=== PATIENT | male | born 1955 | race Caucasian/White ===

== ENCOUNTER 2020-06-22 12:27 | Observation (INO) | payer OTHER ==
[2020-06-22 14:11] LABS: Basophils # (A) 0.1 k/uL (0-0.2); Basophils % (A) 2 %; Eosinophils # (A) 0.2 k/uL (0-0.7); Eosinophils % (A) 3 %; HCT 49.1 % (39.0-53.0); HGB 15.9 gm/dL (13.0-17.5); Lymphocytes # (A) 1.9 k/uL (1.0-4.8); Lymphocytes % (A) 25 %; MCH 32.4 pg (25.0-35.0); MCHC 32.5 g/dL (31.0-37.0); MCV 99.7 fL (80.0-100.0); Mean Platelet Volume 6.9; Monocytes # (A) 0.3 k/uL (0-1.0); Monocytes % (A) 4 %; Neutrophils % (A) 65 %; Platelet Count 251 k/uL (150-450); RBC 4.92 m/uL (4.30-5.90); RDW 12.5 % (11.5-15.5); WBC 7.7 k/uL (3.8-10.6)
--- NOTE | 2020-06-22 14:29 | P.CRDCN ---
History of Present Illness History of present illness: HISTORY OF PRESENTING ILLNESS This is a pleasant 64year-old male past medical history significant for dyslipidemia, daily alcohol intake, chronic back pain and family history of coronary artery disease. He denies prior history of CAD himself and does not follow in the office with a drill press tender. He presented to the hospital today for an outpatient echocardiogram ordered by his PCP for shortness of breath. The patient arrived quite short of breath. His breathing did improve after he sat for a few minutes. He states this has been going on for the last 1 month and getting progressively worse. He had orthopnea earlier this week and had to sleep propped on 3 pillows. He recalls having an episode of chest heaviness and pressure while he was driving a few weeks ago. That was the only time he had any left precordial chest pain. He states both of his brother have already undergone bypass grafting. Current cardiac medications include aspirin 81 mg daily and atorvastatin 40 mg daily. He states he drinks 3 large 24-ounce cans of beer per day everyday and takes caffeine pills as well. 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 Preliminary echocardiogram reviewed and reveals a severely impaired LV systolic function with EF around 25%. REVIEW OF SYSTEMS At the time of my exam: CONSTITUTIONAL: Denies fever or chills. CARDIOVASCULAR: Complains of shortness of breath and orthopnea. Denies chest pain, PND or palpitations. RESPIRATORY: Denies cough. GASTROINTESTINAL: Denies abdominal pain, diarrhea, constipation, nausea or vomiting. MUSCULOSKELETAL: Denies myalgias. NEUROLOGIC: Denies numbness, tingling or weakness. ENDOCRINE: Denies fatigue, weight change, polydipsia or polyurina. GENITOURINARY: Denies burning, hematuria or urgency with micturation. HEMATOLOGIC: Denies history of anemia or bleeding. PHYSICAL EXAMINATION Blood pressure 164/94 heart rate 94 afebrile and maintaining oxygen saturation on room air. CONSTITUTIONAL: No apparent distress. HEENT: Head is normocephalic. Pupils are equal, round. Sclerae anicteric. Mucous membranes of the mouth are moist. No JVD. No carotid bruit. CHEST EXAMINATION: Faint rales bibasilar. No wheezes or rhonchi. No chest wall tenderness is noted on palpation or with deep breathing. HEART EXAMINATION: Regular rate and rhythm. S1, S2 heard. No murmurs, gallops or rub. ABDOMEN: Soft, nontender. Positive bowel sounds. EXTREMITIES: 2+ peripheral pulses, no lower extremity edema and no calf tenderness. NEUROLOGIC EXAMINATION: Patient is awake, alert and oriented x3. ASSESSMENT Acute systolic heart failure Cardiomyopathy, unknown if ischemic or non-ischecmic at this point. Dyslipidemia Daily alcohol intake PLAN Recommend admission into the hospital for diuresis. Discussed with Dr. Foley and Rebecca. Obtain chest xray, CMP, magnesium, NTproBNP and troponin. Initiate on lasix 20 mg IV TID. Follow renal function and electrolytes in the AM. Document accurate intake and output along with daily weights. If his blood pressure tolerates diuresis we will initiate beta ritesh and LISA or ARB tomorrow. Resume aspirin and atorvastatin as previously ordered. Further recommendations to follow based on clinical course. Thank you kindly for this consultation. Dr. Tamayo will be in to evaluate the patient this evening. Nurse Practitioner note has been reviewed, I agree with a documented findings and plan of care. Patient was seen and examined. Past Medical History - Past Family History Brother(s) Family Medical History: Coronary Artery Disease (CAD) Additional Family Medical History / Comment(s): 2 boys with a CABG Mother Family Medical History: Myocardial Infarction ([place]) Additional Family Medical History / Comment(s): mom passed from a [place] Medications and Allergies Home Medications Medication Instructions Recorded Confirmed Type Aspirin 81 mg PO BID 06/22/20 06/22/20 History Atorvastatin [Lipitor] 1 mg PO DAILY 06/22/20 06/22/20 History Cyclobenzaprine [Flexeril] 10 mg PO TID 06/22/20 06/22/20 History HYDROcodone/APAP 10-325MG [[place] 1 tab PO Q8HR PRN 06/22/20 06/22/20 History 10-325] Loratadine 10 mg PO DAILY 06/22/20 06/22/20 History Montelukast [Singulair] 10 mg PO HS 06/22/20 06/22/20 History busPIRone HCL 15 mg PO BID 06/22/20 06/22/20 History Allergies Allergy/AdvReac Type Severity Reaction Status Date / Time No Known Allergies Allergy Verified 06/22/20 14:27 Results 06/22/20 13:51
[2020-06-22 14:31] LABS: ALT 32 U/L (4-49); AST 28 U/L (17-59); African American GFR (CKD) >90 (>60 ml/min/1.73 sqM); Albumin 4.2 g/dL (3.5-5.0); Alkaline Phosphatase 81 U/L (38-126); Anion Gap 7 mmol/L; Blood Urea Nitrogen 17 mg/dL (9-20); Calcium 9.5 mg/dL (8.4-10.2); Carbon Dioxide 27 mmol/L (22-30); Chloride 107 mmol/L (98-107); Cholesterol 177 mg/dL (<200); Glucose 126 mg/dL (74-99); HDL Cholesterol 53 mg/dL (40-60); LDL Cholesterol,Calculated 100 mg/dL (0-99); Non-African American GFR(CKD) >90 (>60 ml/min/1.73 sqM); Potassium 4.2 mmol/L (3.5-5.1); Sodium 141 mmol/L (137-145); Total Bilirubin 0.7 mg/dL (0.2-1.3); Total Protein 6.9 g/dL (6.3-8.2); Triglycerides 122 mg/dL (<150)
--- NOTE | 2020-06-22 15:45 | XR ---
EXAMINATION TYPE: XR chest 2V DATE OF EXAM: 06/22/2020 COMPARISON: None HISTORY: 64 year-old male shortness of breath TECHNIQUE: PA and lateral views FINDINGS: Heart borderline in size. Tortuosity or ectasia of the thoracic aorta. Band of atelectasis at the car diac apex and right midlung. Diffuse interstitial prominence. No consolidation or pleural effusion. IMPRESSION: Borderline heart size and mild interstitial change. Correlate to exclude fluid overload state/mild pu lmonary vascular congestion.
[2020-06-22] MEDS: FUROSEMIDE 10 MG/ML 2 ML VIAL IV SCH (16:55)
[2020-06-22] MEDS: LOSARTAN 50 MG TAB PO SCH (16:56)
--- NOTE | 2020-06-22 17:07 | ECHOF ---
Referral Reason:I10 hypertension Z82.49 R06.02Shortness of breath MEASUREMENTS -------- HEIGHT: 172.7 cm WEIGHT: 91.6 kg BP: IVSd: 1.1 cm (0.6 - 1.1) LVIDd: 5.7 cm (3.9 - 5.3) LVPWd: 1.0 cm (0.6 - 1.1) IVSs: 1.2 cm LVIDs: 5.3 cm LVPWs: 1.1 cm LAESV Index (A-L): 44.29 ml/m Ao Diam: 2.9 cm (2.0 - 3.7) AV Cusp: 2.0 cm (1.5 - 2.6) LA Diam: 3.8 cm (2.7 - 3.8) MV EXCURSION: 20.757 mm (> 18.000) MV EF SLOPE: 95 mm/s (70 - 150) EPSS: 1.6 cm MV E Omega: 0.87 m/s MV DecT: 158 ms MV A Omega: 1.19 m/s MV E/A Ratio: 0.73 RAP: 5.00 mmHg RVSP: 7.06 mmHg FINDINGS -------- This was a technically difficult study with suboptimal views. The left ventricle is mildly dilated. Left ventricular wall thickness is normal. There is severe global hypokinesis of LV . Overall left ventricular systolic function is severely impaired with, an EF between 20 - 25 %. Increased LAP. Grade 3 Diastolic Dysfunction. The right ventricle is normal in size. LA is severely dilated >40 ml/m2 The right atrial size is normal. 5.0mg of Lumason was utilized for enhancement of images The aortic valve is trileaflet and appears structurally normal. The mitral valve is normal. Mild mitral regurgitation is present. The tricuspid valve appears structurally normal. Mild tricuspid regurgitation present. Right vent ricular systolic pressure is normal at < 35 mmHg. There is no pulmonic regurgitation present. The aortic root size is normal. There is no pericardial effusion. CONCLUSIONS -------- 1. The left ventricle is mildly dilated. 2. Left ventricular wall thickness is normal. 3. There is severe global hypokinesis of LV . 4. Overall left ventricular systolic function is severely impaired with, an EF between 20 - 25 %. 5. Increased LAP. Grade 3 Diastolic Dysfunction. 6. LA is severely dilated >40 ml/m2 7. Mild mitral regurgitation is present. 8. Mild tricuspid regurgitation present. 9. There is no pericardial effusion. ELECTRIC ORGAN INSPECTOR AND REPAIRER: Irina Melara RDCS
[2020-06-22] MEDS ORDERED: SODIUM CHLORIDE 0.9% 1,000 ML IV SCH (18:15)
--- NOTE | 2020-06-22 18:35 | P.HPIM ---
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 He presented to the to the hospital today for outpatient echocardiogram that was ordered by Dr. Foley for worsening dyspnea. He initially noticed shortness of breath about one month ago and progressively worsened. He also makes mention that he was becoming more easily fatigued over the past week and has been experiencing orthopnea to the point of needing 3 pillows to be propped up for him to be able to sleep. He does mention that approximately 3 weeks ago he had an episode of chest heaviness and pressure while he was driving. He denies experiencing any other chest pain or tightness. He has a known familial history of coronary artery disease as both brothers have undergone bypass grafting. He has a past medical history positive for dyslipidemia, chronic back pain, and being a former smoker. He admits to 3 - 24 ounce cans of beer daily, and takes caffeine pills. The echocardiogram revealed mildly dilated left ventricle, severe global hypokinesis of the left ventricle, ejection fraction 20-25%, and there is no pericardial effusion. Initial lab work reveals white blood cell count 7.7, hemoglobin of 15.9, hematocrit 49.1, platelet count 251. Chemistry reveals a sodium of 141, potassium 4.2, chloride 107, albumin is 17, creatinine of 0.91, GFR greater than 90 and a magnesium of 2.0. His AST is 28, ELT is 32, and his alk phosphatase is 81. Initial troponin was 0.0-4 with a BNP of 210, triglycerides 122, cholesterol 177, LDL is 100, and HDL is 53. Initial set of vitals and pulse rate of 94 sinus rhythm, respiratory rate 18, blood pressure 164/94, 98% on room air. 2 hours later he is afebrile with a temperature of 96.3 orally, pulse rate 97, respiratory rate 19, blood pressure is down 141/92, and is oxygen saturation is 95% on room air. His initial weight for this admission is 106.1 kg with a BMI of 35.6. Review of Systems Constitutional: [Denies fever, chills, nausea or vomiting.] HEENT: [Denies visual changes, hearing changes, pharyngeal erythema or exudate.] Endocrine: [No thyroid disorders. No diabetes mellitus.] Cardiac: [Denies chest pain. Denies murmur.] Pulmonary: [Denies cough or hemoptysis. Complains of shortness of breath, but improving Gasroenterology: [Denies abdominal pain. Denies melena or hematocezia.] Genitourinary: [Denies dysuria or hematuria.] Neurological: [Denies lateralizing deficits. No seizures. Denies focal deficits or focal motor deficits.] Musculoskeletal: [Denies joint complaints.] Allergy/ Immunology: [Denies allergies or immunologic disorder.] Dermatology: [Denies rash.] Past Medical History Past Medical History: Hyperlipidemia Additional Past Medical History / Comment(s): DJD History of Any Multi-Drug Resistant Organisms: None Reported Past Surgical History: Cholecystectomy Additional Past Surgical History / Comment(s): knee surgery at the age of 21 Past Anesthesia/Blood Transfusion Reactions: No Reported Reaction Past Psychological History: Anxiety, PTSD Smoking Status: Former smoker Past Alcohol Use History: Daily Additional Past Alcohol Use History / Comment(s): 6 beers a day Past Drug Use History: Marijuana Additional Drug Use History / Comment(s): current - Past Family History Brother(s) Family Medical History: Coronary Artery Disease (CAD) Additional Family Medical History / Comment(s): 2 boys with a CABG Mother Family Medical History: Myocardial Infarction ([place]) Additional Family Medical History / Comment(s): mom passed from a [place] Medications and Allergies Home Medications Medication Instructions Recorded Confirmed Type Aspirin EC [Ecotrin Low Dose] 81 mg PO BID 06/22/20 06/22/20 History Atorvastatin [Lipitor] 40 mg PO HS 06/22/20 06/22/20 History Cyclobenzaprine [Flexeril] 10 mg PO TID PRN 06/22/20 06/22/20 History Fluticasone Nasal [place] [Flonase 1 spray EA NOSTRIL HS 06/22/20 06/22/20 History Nasal [place]] Ginkgo Biloba 500 mg PO DAILY 06/22/20 06/22/20 History HYDROcodone/APAP 10-325MG [[place] 1 tab PO Q8HR PRN 06/22/20 06/22/20 History 10-325] Loratadine 10 mg PO DAILY 06/22/20 06/22/20 History Montelukast [Singulair] 10 mg PO HS 06/22/20 06/22/20 History busPIRone HCL 15 mg PO BID 06/22/20 06/22/20 History Allergies Allergy/AdvReac Type Severity Reaction Status Date / Time No Known Allergies Allergy Verified 06/22/20 15:23 Physical Exam Vitals: Vital Signs Temp Pulse Resp BP Pulse Ox 06/22/20 16:38 96.3 F L 97 19 141/92 95 06/22/20 14:23 94 18 164/94 98 Intake and Output 06/22/20 06/22/20 06/22/20 06:59 14:59 22:59 Intake Total 150 Balance 150 Intake: Oral 150 Other: Weight 106.1 kg GENERAL: Well-appearing, well-nourished and in no acute distress. HEAD: Atraumatic, normocephalic. EYES: Pupils equal round and reactive to light, extraocular movements intact, sclera anicteric, conjunctiva are normal. ENT:nares patent, oropharynx clear without exudates. Moist mucous membranes. NECK: Normal range of motion, supple without lymphadenopathy or JVD, no thyromegaly LUNGS: Breath sounds fine rales in bilateral bases otherwise clear to auscultation. HEART: Regular rate and rhythm without murmurs, rubs or gallops.S1S2 Normal ABDOMEN: Soft, nontender, normoactive bowel sounds. No guarding, no rebound. No masses appreciated. EXTREMITIES: Normal range of motion, no pitting or edema. No clubbing or cyanosis. +2 peripheral pulses NEUROLOGICAL: Cranial nerves II through XII grossly intact. Normal speech, normal gait. PSYCH: Normal mood, normal affect. SKIN: Warm, Dry, normal turgor, no rashes or lesions noted. Results CBC & Chem 7: 06/22/20 13:51 06/22/20 13:51 Labs: Abnormal Lab Results - Last 24 Hours (Table) 06/22/20 Range/Units 13:51 Glucose 126 H (74-99) mg/dL LDL Cholesterol, Calc 100 H (0-99) mg/dL Thrombosis Risk Factor Assmnt - Choose All That Apply Each Factor Represents 1 point: Heart failure (<1month), Obesity (BMI >25) Each Risk Factor Represents 2 Points: Age 61-74 years Thrombosis Risk Factor Assessment Total Risk Factor Score: 4 Thrombosis Risk Factor Assessment Level: Moderate Risk Assessment and Plan (1) Acute systolic heart failure Current Visit: Yes Status: Acute Code(s): I50.21 - ACUTE SYSTOLIC (CON GESTIVE) HEART FAILURE SNOMED Code(s): 375720329 (2) Cardiomyopathy Current Visit: Yes Status: Acute Code(s): I42.9 - CARDIOMYOPATHY, UNSPECIFIED SNOMED Code(s): 85703744 (3) Shortness of breath at rest Current Visit: Yes Status: Acute Code(s): R06.02 - SHORTNESS OF BREATH SNOMED Code(s): 005701704 (4) Daily consumption of alcohol Current Visit: Yes Status: Acute Code(s): Z78.9 - OTHER SPECIFIED HEALTH STATUS SNOMED Code(s): 242301770 (5) Dyslipidemia Current Visit: Yes Status: Acute Code(s): E78.5 - HYPERLIPIDEMIA, UNSPECIFIED SNOMED Code(s): 876092454 (6) Former smoker Current Visit: Yes Status: Acute Code(s): Z87.891 - PERSONAL HISTORY OF NICOTINE DEPENDENCE SNOMED Code(s): 8877231 Plan: 1. Gentle diuresis with IV Lasix 20 mg TID 2. We'll continue with both ARB and beta ritesh per cardiology recommendation s. 3. Aspirin and statin as previously ordered. 4. Continue to follow daily lab work and treat accordingly. 5. We'll maintain nothing by mouth status with possibility of cardiac cath tomorrow. 6. Will initiate CIWA protocol for his daily consumption of alcohol. 7. We'll continue to monitor vital signs and more importantly daily weights and treat accordingly. 8. We'll continue to follow closely.
[2020-06-22] MEDS ORDERED: THIAMINE 100 MG/ML 2 ML VIAL IM STA (18:37)
[2020-06-22] MEDS ORDERED: LORazepam 2 MG/ML INJ IV PRN ×3 (18:37)
[2020-06-22] MEDS: carvediloL 3.125 MG TAB PO SCH (18:46)
[2020-06-22] MEDS: MONTELUKAST 10 MG TAB PO SCH (21:33)
[2020-06-22] MEDS: ATORVASTATIN 40 MG TAB PO SCH (21:34)
[2020-06-22] MEDS: busPIRone HCl 5 MG TAB PO SCH (21:34)
[2020-06-22] MEDS: HYDROcodone/APAP 10-325MG 1 EACH TAB PO PRN (21:35)
[2020-06-23] MEDS: HEPARIN SODIUM,PORCINE 5,000 UNIT/ML 1 ML VIAL SQ SCH ×3 (00:15→16:51)
[2020-06-23] MEDS ORDERED: ASPIRIN 325 MG TAB PO STA (07:44)
[2020-06-23] MEDS ORDERED: NITROGLYCERIN SL TABS 0.4 MG TAB SUBLINGUAL PRN (07:44)
[2020-06-23] MEDS ORDERED: SODIUM CHLORIDE 0.9% 1,000 ML in EMPTY BAG 1 BAG IV ONE (07:44)
[2020-06-23 07:57] LABS: African American GFR (CKD) >90 (>60 ml/min/1.73 sqM); Anion Gap 6 mmol/L; Blood Urea Nitrogen 17 mg/dL (9-20); Calcium 9.4 mg/dL (8.4-10.2); Carbon Dioxide 29 mmol/L (22-30); Chloride 106 mmol/L (98-107); Glucose 113 mg/dL (74-99); Non-African American GFR(CKD) 80 (>60 ml/min/1.73 sqM); Potassium 4.6 mmol/L (3.5-5.1); Sodium 141 mmol/L (137-145)
[2020-06-23] MEDS: busPIRone HCl 5 MG TAB PO SCH ×2 (08:52→20:01)
[2020-06-23] MEDS: carvediloL 3.125 MG TAB PO SCH ×2 (08:52→16:55)
[2020-06-23 08:53] LABS: Glucose,Whole Blood 124 mg/dL (75-99)
[2020-06-23] MEDS: HYDROcodone/APAP 10-325MG 1 EACH TAB PO PRN ×2 (08:53→16:53)
[2020-06-23] MEDS: LOSARTAN 50 MG TAB PO SCH (08:54)
[2020-06-23] MEDS: THIAMINE 100 MG TAB PO SCH ×2 (08:54→17:11)
[2020-06-23] MEDS: FUROSEMIDE 10 MG/ML 2 ML VIAL IV SCH ×3 (08:54→16:57)
[2020-06-23] MEDS ORDERED: ASPIRIN 81 MG PO SCH (09:00)
[2020-06-23] MEDS ORDERED: VERAPAMIL SYRINGE (5 MG/10 ML) INTRAARTER ONE (11:36)
[2020-06-23] MEDS ORDERED: HEPARIN SODIUM 1,000 UN/ML (10ML VL) ONE (13:07)
[2020-06-23] MEDS ORDERED: VERAPAMIL 2.5 MG/ML 2 ML AMP ONE (13:07)
[2020-06-23] MEDS ORDERED: LIDOCAINE 1% INJ 10MG/ML (20 ML MDV) ONE (13:07)
[2020-06-23] MEDS ORDERED: IV FLUID CONTINUATION 1,000 ML IV ONE (13:20)
[2020-06-23] MEDS ORDERED: MIDAZOLAM 2 MG/2 ML VIAL IV ONE (13:28)
[2020-06-23] MEDS ORDERED: LIDOCAINE 1% INJ 10MG/ML (20 ML MDV) SQ ONE (13:32)
[2020-06-23] MEDS ORDERED: NITROGLYCERIN 1000MCG/10ML SYRINGE INTRACORON ONE (14:06)
[2020-06-23] MEDS ORDERED: IOPAMIDOL-370 100ML BTL INJ ONE ×2 (14:06→14:49)
[2020-06-23] MEDS ORDERED: HYDROmorphone 1 MG/ML 1 ML SYRINGE ONE (14:31)
[2020-06-23] MEDS ORDERED: HYDROmorphone 1 MG/ML 1 ML SYRINGE IVP ONE (14:32)
[2020-06-23] MEDS ORDERED: EPINEPHrine 10 ML SYRINGE (0.1 MG/ML) IV ONE (14:46)
[2020-06-23] MEDS ORDERED: NOREPINEPHRINE 4 MG in SODIUM CHLORIDE 0.9% 250 ML IV ONE (14:49)
--- NOTE | 2020-06-23 15:54 | P.PN ---
Subjective Progress Note Date: 06/23/20 This is 64-year-old gentleman admitted with acute systolic CHF, cardiomyopathy, alcohol abuse and multiple other medical issues. Evaluated by cardiology. Diuresing well on Lasix IV push with 24-hour I&O reflecting a negative fluid balance. Creatinine 1.01. Scheduled for cardiac catheterization today. M aintained on CIWA protocol. Denies chest pain, palpitations or increasing shortness of breath. Maintaining O2 sats in the 90s on room air. Objective - Vital Signs Vital signs: Vital Signs Temp 97.8 F 06/23/20 08:00 Pulse 86 06/23/20 12:00 Resp 19 06/23/20 12:00 BP 135/88 06/23/20 12:00 Pulse Ox 95 06/23/20 12:00 Intake & Output 06/22/20 06/23/20 06/23/20 18:59 06:59 18:59 Intake Total 270 200 Output Total 1100 300 Balance 270 -1100 -100 Weight 106.1 kg 104.3 kg Intake: IV 200 Oral 270 0 Output: Urine 1100 300 Other: Voiding Method Urinal Urinal - Exam PHYSICAL EXAM: VITAL SIGNS: As above GENERAL: Sitting up in bed,NAD HEENT: Conjunctivae normal. eyes normal. Oral mucosa dry NECK: No JVD. No thyroid enlargement. No LNs CARDIOVASCULAR: S1, S2 regular.. No murmur RESPIRATION: Breath sounds diminished in the bases. No rhonchi or crackles. No bronchial breathing. ABDOMEN: Soft, nontender . No guarding. no masses palpable.Bowel sounds heard. LEGS: No edema. no swelling PSYCHIATRY: Alert and oriented X3, mood and affect normal. NERVOUS SYSTEM: Cranial N 2-12 grossly normal. No focal deficits. Strength and sensation grossly intact.. Skin: Warm and dry, no rash - Labs CBC & Chem 7: 06/22/20 13:51 06/23/20 06:23 Labs: Abnormal Lab Results - Last 24 Hours (Table) 06/23/20 06/23/20 Range/Units 06:23 08:52 Glucose 113 H (74-99) mg/dL POC Glucose (mg/dL) 124 H (75-99) mg/dL Assessment and Plan Assessment: Acute CHF exacerbation, systolic dysfunction Cardiomyopathy, type unclear Alcohol abuse, daily Hyperlipidemia Former nicotine dependence Plan: Continue on current medication regime ,monitoring and symptomatic treatment. Scheduled for cardiac catheterization today. Maintained diuretics, close monitoring of renal function with repeat labs ordered for a.m.CIWA protocol. The impression and plan of care has been dictated as directed. : I performed a history and examination of this patient, discussed the same with the dictator. I agree with the dictator's note ,documented as a scribe. Any additional findings or plans will be noted.
[2020-06-23] MEDS ORDERED: LOSARTAN 50 MG TAB PO PRN (16:10)
[2020-06-23] MEDS: PANTOPRAZOLE 40 MG/10 ML VIAL IVP SCH (16:56)
[2020-06-23] MEDS: SODIUM CHLORIDE 0.9% 1,000 ML IV SCH ×2 (18:21→20:02)
[2020-06-23] MEDS: MONTELUKAST 10 MG TAB PO SCH (20:02)
[2020-06-23] MEDS: ATORVASTATIN 40 MG TAB PO SCH (20:02)
--- NOTE | 2020-06-23 20:52 | CC ---
CARDIAC CATHETERIZATION REPORT DATE OF SERVICE: 06/23/2020 PROCEDURE: 1. Coronary angiography. 2. Fractional flow reserve assessment of mid LAD and mid RCA. PERFORMED BY: Dr. Le Tamayo. Moderate conscious sedation time was 84 minutes. Patient was administered Versed. Oxygen saturation, hemodynamics and EKG were monitored closely. CLINICAL INFORMATION: Mr. Jaycob Doyle is a 64-year-old obese gentleman with history of smoking, marijuana use and also alcohol intake. He came into the hospital for echocardiogram yesterday, was quite short of breath, was found to be in heart failure clinically with ejection fraction of less than 25%. He was hospitalized, treated with diuretics. He felt better this morning. He was advised coronary angiography to rule out obstructive CAD and therefore brought in for the procedure after due discussion regarding risks, benefits and options. PROCEDURE NOTE: Under local anesthesia and strict aseptic precautions, a 6-[place] introducer was placed in the right radial artery. Using JR4 and JL3.5 catheters, I performed coronary angiography. I noted that this was somewhat of a difficult procedure from the right radial approach because of tortuosity. I did not get LV pressures. Following the coronary angiography, I noted that there was a 50% lesion in the mid LAD after a septal branch and before a diagonal branch, and also there was a mid RCA lesion at the origin of acute marginal branch. Both of these were in the 50% range, moderate. I advised FFR, which I performed in the same setting. Procedure was somewhat prolonged because of technical difficulties in trying to get a good guide support for the FFR. CARDIAC CATHETERIZATION FINDINGS: CORONARY ANGIOGRAPHY FINDINGS: Right coronary artery is a large vessel, dominant, very tortuous in the mid portion, gives off 2 acute marginal branches, and there is eccentric 50% lesion, after which the caliber improves and distally the vessel bifurcates into a large PDA and PLV, both of which supply a sizable amount of myocardium. RCA is therefore dominant, has a 50% mid lesion, eccentric. Left main coronary artery is a very short patent vessel that bifurcates into LAD and circumflex. No significant disease. Left anterior descending coronary artery is a fairly good-caliber vessel that gives off a septal branch proximally, and then there is an area of narrowing of up to 50%, after which a good-sized diagonal branch comes off and the LAD caliber improves and it runs all the way to the apex, supplying a sizable amount of myocardium. The mid LAD after a relatively small septal branch, therefore, has a 50% lesion. Diagonal and rest of LAD distal to the diagonal is free of significant disease. Left posterior circumflex coronary artery is a nondominant vessel and gives off a high obtuse marginal which almost looks like a ramus, small in caliber and distribution; no significant disease. Circumflex then gives a left atrial circumflex branch and continues distally as an obtuse marginal. No significant disease in the circumflex system. FINAL IMPRESSION: This patient has a right-dominant system, 50% mid RCA and a 50% mid LAD lesion. No significant disease in the circumflex. RECOMMENDATIONS: I recommended IFR/FFR and proceeded to perform this in the same setting of both LAD and RCA. FFR ASSESSMENT PROCEDURE DETAILS: For the left anterior descending coronary artery, I initially tried a JL4 catheter, but I had poor guide support. I was able to advance a Verrata wire, but it went into the diagonal branch. I therefore took the wire out and switched over to an XB LAD 3.5 guide catheter. With this I had a slightly better approach. I advanced a run-through wire all the way distally with the hope of exchanging it over a [place] catheter, but I was then able to advance the Verrata wire over it distally. This took a considerable amount of time. Patient received about 6500 units of heparin totally and his ACT was 323. I obtained IFR after normalizing adequately in the ascending aorta. The IFR was 0.91 and 0.93. I then turned my attention to the right coronary artery. When the wires were taken out, I used a standard right [place] guide catheter to cannulate the right coronary artery and used the same long Verrata wire which was already calibrated and advanced it into the mid/distal RCA. IFR was performed and this was 0.97. Both the RCA mid lesion as well as LAD mid lesion were therefore hemodynamically not significant by IFR measurement. This was explained to the patient. Following this, he complained of discomfort in the right arm and also in the right radial site and became vasovagal. The catheter was then taken out. I gave him some IV fluids and also gave him 1 mL of epinephrine to get his pressure back up. Once the blood pressure came back up, he stabilized. We observed him for nearly 30 minutes and his blood pressure remained normal at more than 120/70, and his EKG was unremarkable. Symptoms were resolved. I then took the sheath out and applied a TR band as per protocol. Good hemostasis was achieved and the saturation in the fingers of the right hand was about 96%. The patient received sedation and Dilaudid, and the conscious sedation time was 84 minutes. He was observed very closely. His oxygen saturation, hemodynamics and EKG were monitored closely. The patient therefore has a moderate lesion in the mid LAD and mid right coronary artery which is a dominant vessel, but the IFR was normal, suggesting that these are not significant lesions. This was explained to the patient in detail. He was sent to the room in a stable condition. Transient use of Levophed was there in the laborer concrete paving for vasovagal episode. Following the procedure, I spoke to the patient's , Frida Doyle, explained to her the findings and the details of the procedure and the hypotensive episode and that we will watch him closely for the next 24 hours and possibly discharge him once we optimize his heart failure management. I discussed my thoughts in detail with the patient. Thank you very much for the consult. MMHIMAL / IJN: [id number] /
[2020-06-24] MEDS: FUROSEMIDE 10 MG/ML 2 ML VIAL IV SCH ×2 (00:24→08:42)
[2020-06-24] MEDS: HEPARIN SODIUM,PORCINE 5,000 UNIT/ML 1 ML VIAL SQ SCH ×2 (00:24→08:42)
[2020-06-24] MEDS: HYDROcodone/APAP 10-325MG 1 EACH TAB PO PRN (03:43)
[2020-06-24] MEDS: THIAMINE 100 MG TAB PO SCH (06:36)
[2020-06-24] MEDS ORDERED: carvediloL 6.25 MG TAB PO SCH (07:30)
[2020-06-24 07:53] LABS: Basophils # (A) 0.1 k/uL (0-0.2); Basophils % (A) 1 %; Eosinophils # (A) 0.2 k/uL (0-0.7); Eosinophils % (A) 2 %; Lymphocytes # (A) 2.7 k/uL (1.0-4.8); Lymphocytes % (A) 25 %; MCH 32.7 pg (25.0-35.0); MCHC 32.7 g/dL (31.0-37.0); MCV 100.1 fL (80.0-100.0); Mean Platelet Volume 6.8; Monocytes # (A) 0.5 k/uL (0-1.0); Monocytes % (A) 5 %; Neutrophils # (A) 7.1 k/uL (1.3-7.7); Neutrophils % (A) 66 %; Platelet Count 275 k/uL (150-450); RDW 12.6 % (11.5-15.5); WBC 10.8 k/uL (3.8-10.6)
[2020-06-24 08:35] LABS: African American GFR (CKD) >90 (>60 ml/min/1.73 sqM); Anion Gap 8 mmol/L; Blood Urea Nitrogen 16 mg/dL (9-20); Calcium 8.9 mg/dL (8.4-10.2); Carbon Dioxide 22 mmol/L (22-30); Chloride 107 mmol/L (98-107); Glucose 128 mg/dL (74-99); Non-African American GFR(CKD) >90 (>60 ml/min/1.73 sqM); Potassium 3.9 mmol/L (3.5-5.1); Sodium 137 mmol/L (137-145)
[2020-06-24 08:40] VITALS: RESP 18
[2020-06-24] MEDS: busPIRone HCl 5 MG TAB PO SCH (08:41)
[2020-06-24] MEDS: PANTOPRAZOLE 40 MG/10 ML VIAL IVP SCH (08:42)
[2020-06-24] MEDS: LOSARTAN 50 MG TAB PO SCH (08:42)
[2020-06-24] MEDS ORDERED: ASPIRIN 81 MG PO SCH (09:00)
[2020-06-24 11:55] VITALS: BP 135/76; PULSE 94; TEMP 97.7
--- NOTE | 2020-06-24 13:01 | P.PN ---
Subjective Progress Note Date: 06/24/20 Principal diagnosis: Shortness of breath, outpatient echocardiogram demonstrated poor cardiac output Patient status post cardiac catheterization, no significant lesions noted curr ently, on medical management with carvedilol and losartan and diuretic patient is slowly improving. Am recommending a significant reduction and/or elimination of alcohol consumption Objective - Vital Signs Vital signs: Vital Signs Temp 97.7 F 06/24/20 11:53 Pulse 94 06/24/20 11:53 Resp 18 06/24/20 11:53 BP 135/76 06/24/20 11:53 Pulse Ox 98 06/24/20 11:53 Intake & Output 06/23/20 06/24/20 06/24/20 18:59 06:59 18:59 Intake Total 884 400 240 Output Total 300 2100 Balance 584 -1700 240 Weight 104.1 kg Intake: IV 200 Oral 684 400 240 Output: Urine 300 2100 Other: Voiding Method Urinal Urinal Urinal # Voids 4 1 - Exam General: [Patient awake, alert and oriented times 3. Patient in no acute distress.] HEENT: [PERRL. EOMI. No pharyngeal erythema or exudate.] Neck: [No adenopathy.] Cardiac: [Heart regular in rate and rhythm. No S3. No S4. No clicks, rubs. No murmur.] Lungs: [Clear to auscultation bilaterally.] Abdomen: [No mass. No organomegaly. Bowel sounds presnt and normoactive in all 4 quadrants.] Extremes: [No edema no cyanosis no claudication normal pulses] : Normal male genitalia Musculoskeletal: [No joint erythema, edema or tenderness.] Skin: [No rash.] Neurologic: [No lateralizing deficits. CN II - XII grossly intact.] Lymphatic: [No adenopathy.] - Labs CBC & Chem 7: 06/24/20 07:23 06/24/20 07:23 Labs: Abnormal Lab Results - Last 24 Hours (Table) 06/24/20 06/24/20 Range/Units 07:23 07:23 WBC 10.8 H (3.8-10.6) k/uL MCV 100.1 H (80.0-100.0) fL Glucose 128 H (74-99) mg/dL Assessment and Plan (1) Acute systolic heart failure Current Visit: Yes Status: Acute Code(s): I50.21 - ACUTE SYSTOLIC (CONGESTIVE) HEART FAILURE SNOMED Code(s): 344932499 (2) Cardiomyopathy Current Visit: Yes Status: Acute Code(s): I42.9 - CARDIOMYOPATHY, UNSPECIFIED SNOMED Code(s): 89055143 (3) Daily consumption of alcohol Current Visit: Yes Status: Acute Code(s): Z78.9 - OTHER SPECIFIED HEALTH STATUS SNOMED Code(s): 631652437 (4) Dyslipidemia Current Visit: Yes Status: Acute Code(s): E78.5 - HYPERLIPIDEMIA, UNSPECIFIED SNOMED Code(s): 705690464 (5) Former smoker Current Visit: Yes Status: Acute Code(s): Z87.891 - PERSONAL HISTORY OF NICOTINE DEPENDENCE SNOMED Code(s): 3279717 (6) Shortness of breath at rest Current Visit: Yes Status: Acute Code(s): R06.02 - SHORTNESS OF BREATH SNOMED Code(s): 642545365 Plan: Recent cardiac catheterization, no significant lesions noted Significant cardiomyopathy consider alcohol related Meds include carvedilol losartan diuretic Anticipate discharge home once pain is stable Time with Patient: Greater than 30
--- NOTE | 2020-06-24 13:30 | P.PN ---
Subjective Progress Note Date: 06/24/20 History of present illness: This is a pleasant 64year-old male past medical history significant for dyslipidemia, daily alcohol intake, chronic back pain and family history of coronary artery disease. He denies prior history of CAD himself and does not follow in the office with a edge finisher. He presented to the hospital today for an outpatient echocardiogram ordered by his PCP for shortness of breath. The patient arrived quite short of breath. His breathing did improve after he sat for a few minutes. He states this has been going on for the last 1 month and getting progressively worse. He had orthopnea earlier this week and had to sleep propped on 3 pillows. He recalls having an episode of chest heaviness and pressure while he was driving a few weeks ago. That was the only time he had any left precordial chest pain. He states both of his brother have already undergone bypass grafting. Current cardiac medications include aspirin 81 mg daily and atorvastatin 40 mg daily. He states he drinks 3 large 24-ounce cans of beer per day everyday and takes caffeine pills as well. 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 Preliminary echocardiogram reviewed and reveals a severely impaired LV systolic function with EF around 25%. 06/24: Patient underwent heart catheterization with Dr. INDY Tamayo on June 23 which revealed right dominant system, 50% mid RCA and 50% mid LAD lesion. No significant disease in the circumflex. INR was normal. He did require transient use of Levophed and the Er Nurse for vasovagal episode. He has been hemodynamically stable. WBC 10.8, hemoglobin 16. Electrolytes and renal function normal with creatinine of 0.87. Lasix will be transitioned to oral at 40 mg twice daily and Coreg will be increased to 12.5 mg twice daily. Need for alcohol cessation discussed with patient. Plan to monitor patient overnight and schedule discharge for tomorrow. Physical examination: Gen: This is a 64-year-old male. He is resting in bed and appears to be comfortable and in no acute distress. VS: Afebrile, heart rate 94, pressure 135/76, pulse ox 90% on room air. [age]-year-old male. HEENT: Head is atraumatic, normocephalic. Pupils equal, round. Sclerae is anicteric. NECK: Supple. No JVD. No lymphadenopathy. No thyromegaly. LUNGS: Clear to auscultation. No wheezes or rhonchi. No intercostal retractions. HEART: Regular rate and rhythm. No murmur. ABDOMEN: Soft. Bowel sounds are present. No masses. No tenderness. EXTREMITIES: No pedal edema. No calf tenderness. NEUROLOGICAL: Patient is awake, alert and oriented x3. Cranial nerves 2 through 12 are grossly intact. Assessment: Acute systolic heart failure Cardiomyopathy, unknown if ischemic or non-ischecmic at this point. Dyslipidemia Daily alcohol intake Plan: Transitioned IV Lasix to oral 40 mg twice daily. Recheck electrolytes and renal function in the morning. Document accurate intake and output along with daily weights. Continue losartan 50 mg daily and increase Coreg to 12.5 mg twice daily. Resume aspirin and atorvastatin as previously ordered. Most likely patient will be cleared for discharge home tomorrow. Further recommendations to follow based on clinical course. Thank you kindly for this consultation. Nurse practitioner note has been reviewed, I agree with documented findings and plan of care. Patient was seen and examined. Objective - Vital Signs Vital signs: Vital Signs Temp 98.2 F 06/24/20 08:39 Pulse 96 06/24/20 08:39 Resp 18 06/24/20 08:39 BP 147/99 06/24/20 08:39 Pulse Ox 97 06/24/20 08:39 Intake & Output 06/23/20 06/24/20 06/24/20 18:59 06:59 18:59 Intake Total 884 400 240 Output Total 300 2100 Balance 584 -1700 240 Weight 104.1 kg Intake: IV 200 Oral 684 400 240 Output: Urine 300 2100 Other: Voiding Method Urinal Urinal Urinal # Voids 4 1 - Labs CBC & Chem 7: 06/24/20 07:23 06/24/20 07:23 Labs: Abnormal Lab Results - Last 24 Hours (Table) 06/24/20 06/24/20 Range/Units 07:23 07:23 WBC 10.8 H (3.8-10.6) k/uL MCV 100.1 H (80.0-100.0) fL Glucose 128 H (74-99) mg/dL
[2020-06-24] MEDS ORDERED: FUROSEMIDE 40 MG TAB PO SCH (16:00)
--- NOTE | 2020-06-24 16:00 | ECHOF ---
Referral Reason:Cardiomyopathy, Evaluate LV FX and Wall motion, MEASUREMENTS -------- HEIGHT: 172.7 cm WEIGHT: 103.9 kg BP: IVSd: 1.0 cm (0.6 - 1.1) LVIDd: 5.2 cm (3.9 - 5.3) LVPWd: 1.0 cm (0.6 - 1.1) IVSs: 1.1 cm LVIDs: 4.7 cm LVPWs: 1.7 cm FINDINGS -------- Limited Study Left ventricular wall thickness is normal. There is severe global hypokinesis of LV . Overall lef t ventricular systolic function is severely impaired with, an EF between 20 - 25 %. There is no pericardial effusion. CONCLUSIONS -------- 1. Left ventricular wall thickness is normal. 2. There is severe global hypokinesis of LV . 3. Overall left ventricular systolic function is severely impaired with, an EF between 20 - 25 %. 4. There is no pericardial effusion. HIDE SPREADER: Irina Melara RDCS
[2020-06-24] MEDS ORDERED: carvediloL 12.5 MG TAB PO SCH (17:30)
--- NOTE | 2020-07-04 13:18 | P.DS ---
Providers Date of admission: 06/22/20 13:31 Expected date of discharge: 07/04/20 Attending physician: Elio Foley Consults: 06/22/20 13:47 Consult Physician Routine Consulting Provider: José Luis Tamayo Consult Reason/Comments: new onset heart failure Do you want consulting provider notified?: Already Contacted Primary care physician: Elio Foley - Discharge Diagnosis(es) (1) Acute systolic heart failure Status: Acute (2) Cardiomyopathy Status: Acute (3) Daily consumption of alcohol Status: Acute (4) Dyslipidemia Status: Acute (5) Former smoker Status: Acute (6) Shortness of breath at rest Status: Acute Assessment: Patient signed out AMA apparently because his meal didn't come in time Patient Condition at Discharge: Serious Plan - Discharge Summary New Discharge Prescriptions: No Action HYDROcodone/APAP 10-325MG [[place] 10-325] 1 tab PO Q8HR PRN PRN Reason: Pain Loratadine 10 mg PO DAILY Cyclobenzaprine [Flexeril] 10 mg PO TID PRN PRN Reason: Muscle Spasm busPIRone HCL 15 mg PO BID Montelukast [Singulair] 10 mg PO HS Atorvastatin [Lipitor] 40 mg PO HS Fluticasone Nasal [place] [Flonase Nasal [place]] 1 spray EA NOSTRIL HS Aspirin EC [Ecotrin Low Dose] 81 mg PO BID Ginkgo Biloba 500 mg PO DAILY Discharge Medication List Aspirin EC [Ecotrin Low Dose] 81 mg PO BID 06/22/20 [History] Atorvastatin [Lipitor] 40 mg PO HS 06/22/20 [History] Cyclobenzaprine [Flexeril] 10 mg PO TID PRN 06/22/20 [History] Fluticasone Nasal [place] [Flonase Nasal [place]] 1 spray EA NOSTRIL HS 06/22/20 [History] Ginkgo Biloba 500 mg PO DAILY 06/22/20 [History] HYDROcodone/APAP 10-325MG [[place] 10-325] 1 tab PO Q8HR PRN 06/22/20 [History] Loratadine 10 mg PO DAILY 06/22/20 [History] Montelukast [Singulair] 10 mg PO HS 06/22/20 [History] busPIRone HCL 15 mg PO BID 06/22/20 [History] Discharge Disposition: Left Against Medical Advice
== END 2020-06-24 13:20 | disposition left against medical advice (07) ==
LOC: RADECHMAIN 12:27 → INTOOBSV 13:31 → 3SCARD 13:31 → UNDODISIN 06-24 13:20
PROVIDERS: ADMIT Family Medicine; ATTEND Family Medicine
DX: I25.10 Atherosclerotic heart disease of native coronary artery without angina pectoris (principal); I77.1 Stricture of artery; I95.9 Hypotension, unspecified; Z53.29 Procedure and treatment not carried out because of patient's decision for other reasons; R06.02 Shortness of breath; R06.00 Dyspnea, unspecified; R53.83 Other fatigue; R06.01 Orthopnea; R00.0 Tachycardia, unspecified; I50.21 Acute systolic (congestive) heart failure; I42.9 Cardiomyopathy, unspecified; E78.5 Hyperlipidemia, unspecified; F10.10 Alcohol abuse, uncomplicated; F41.9 Anxiety disorder, unspecified; F43.10 Post-traumatic stress disorder, unspecified; E66.9 Obesity, unspecified; G89.29 Other chronic pain; M54.9 Dorsalgia, unspecified; M19.90 Unspecified osteoarthritis, unspecified site; Y90.9 Presence of alcohol in blood, level not specified; Z87.891 Personal history of nicotine dependence; Z90.49 Acquired absence of other specified parts of digestive tract; Z98.890 Other specified postprocedural states; Z79.82 Long term (current) use of aspirin; Z79.899 Other long term (current) drug therapy; Z79.891 Long term (current) use of opiate analgesic; Z68.35 Body mass index [BMI] 35.0-35.9, adult; Z82.49 Family history of ischemic heart disease and other diseases of the circulatory system
CPT/HCPCS: 96372; 96374; 93005; 93308; 93571; 93572; 93454; 85379; 83880 ×2; 80061; 80053; 80048 ×2; 83735; 84484 ×2; 85025 ×2; 71046; G0378 ×3; C8929; C1769 ×3; C1887 ×3; C1894; J2250; J1644 ×3; J1940 ×3; J3411; J2001; J0171; J1170; C9113 ×2; Q9950; Q9967; 93306

== ENCOUNTER 2020-11-05 10:49 | Observation (INO) | payer OTHER ==
[2020-11-05] MEDS ORDERED: ASPIRIN 81 MG PO STA (11:37)
[2020-11-05 11:54] LABS: Basophils # (A) 0.1 k/uL (0-0.2); Basophils % (A) 1 %; Eosinophils # (A) 0.5 k/uL (0-0.7); Eosinophils % (A) 6 %; HCT 50.3 % (39.0-53.0); HGB 17.8 gm/dL (13.0-17.5); Lymphocytes # (A) 2.2 k/uL (1.0-4.8); Lymphocytes % (A) 25 %; MCH 33.7 pg (25.0-35.0); MCHC 35.4 g/dL (31.0-37.0); MCV 95.1 fL (80.0-100.0); Monocytes # (A) 0.4 k/uL (0-1.0); Monocytes % (A) 5 %; Neutrophils # (A) 5.6 k/uL (1.3-7.7); Neutrophils % (A) 62 %; Platelet Count 206 k/uL (150-450); RBC 5.28 m/uL (4.30-5.90); RDW 12.6 % (11.5-15.5)
--- NOTE | 2020-11-05 12:02 | ED ---
Chest Pain HPI - General Chief Complaint: Chest Pain Stated Complaint: SOB Time Seen by Provider: 11/05/20 11:20 Source: patient, RN notes reviewed Mode of arrival: ambulatory Limitations: no limitations - History of Present Illness Initial Comments: 65-year-old male presents emergency Department chief complaint chest discomfort, shortness of breath. Patient states that he had some heart issues in the past. Patient states she was admitted here last year for similar problems. Patient states that this is much worse. States his pressure in his chest and shortness of breath. No fevers or chills. Denies any nausea vomiting. He states the pain is more exertional. No history DVT or PE. Patient states he does take multiple medications. Patient has a history of hypertension hyperlipidemia and diabetes. - Related Data Home Medications Medication Instructions Recorded Confirmed Aspirin EC [Ecotrin Low Dose] 81 mg PO BID 06/22/20 11/05/20 Atorvastatin [Lipitor] 40 mg PO AC-SUPPER 06/22/20 11/05/20 Cyclobenzaprine [Flexeril] 10 mg PO BID 06/22/20 11/05/20 HYDROcodone/APAP 10-325MG [[place] 1 tab PO Q8HR PRN 06/22/20 11/05/20 10-325] Loratadine 10 mg PO DAILY 06/22/20 11/05/20 Carvedilol [Coreg] 12.5 mg PO AC-BID 11/05/20 11/05/20 Cyclobenzaprine [Flexeril] 10 mg PO DAILY@1400 PRN 11/05/20 11/05/20 Furosemide [Lasix] 40 mg PO DAILY 11/05/20 11/05/20 Losartan [Cozaar] 25 mg PO DAILY 11/05/20 11/05/20 Potassium Chloride [Klor-Con 20] 20 meq PO DAILY 11/05/20 11/05/20 Pseudoephedrine 12Hr [Sudafed 12Hr] 120 mg PO Q12H PRN 11/05/20 11/05/20 busPIRone HCL [Buspar] 30 mg PO BID 11/05/20 11/05/20 Allergies Allergy/AdvReac Type Severity Reaction Status Date / Time No Known Allergies Allergy Verified 11/05/20 12:57 Review of Systems ROS Statement: Those systems with pertinent positive or pertinent negative responses have been documented in the HPI. ROS Other: All systems not noted in ROS Statement are negative. EKG Findings - EKG Comments: EKG Findings:: EKG performed at 11:23 normal sinus rhythm rate of 93. 150 QRS 86 QT/QTC 346/4:30 - EKG Results: EKG: interpreted by JINA Past Medical History Past Medical History: Chest Pain / Angina, Hyperlipidemia Additional Past Medical History / Comment(s): DJD History of Any Multi-Drug Resistant Organisms: None Reported Past Surgical History: Cholecystectomy Additional Past Surgical History / Comment(s): knee surgery at the age of 21 Past Anesthesia/Blood Transfusion Reactions: No Reported Reaction Past Psychological History: Anxiety, PTSD Smoking Status: Former smoker Past Alcohol Use History: Daily Past Drug Use History: Marijuana - Past Family History Brother(s) Family Medical History: Coronary Artery Disease (CAD) Additional Family Medical History / Comment(s): 2 boys with a CABG Mother Family Medical History: Myocardial Infarction ([place]) Additional Family Medical History / Comment(s): mom passed from a [place] General Exam Limitations: no limitations General appearance: alert, in no apparent distress Head exam: Present: atraumatic, normocephalic, normal inspection Eye exam: Present: normal appearance, PERRL, EOMI. Absent: scleral icterus, conjunctival injection, periorbital swelling ENT exam: Present: normal exam, normal oropharynx, mucous membranes moist, TM's normal bilaterally Neck exam: Present: normal inspection, full ROM. Absent: tenderness, meningismus, lymphadenopathy Respiratory exam: Present: normal lung sounds bilaterally. Absent: respiratory distress, wheezes, rales, rhonchi, stridor Cardiovascular Exam: Present: regular rate, normal rhythm, normal heart sounds. Absent: systolic murmur, diastolic murmur, rubs, gallop, clicks GI/Abdominal exam: Present: soft, normal bowel sounds. Absent: distended, tenderness, guarding, rebound, rigid Extremities exam: Absent: pedal edema, calf tenderness Skin exam: Present: warm, dry, intact, normal color. Absent: rash Course Vital Signs 11/05/20 11/05/20 11/05/20 11:10 11:50 12:00 Temperature 97.9 F Pulse Rate 104 H 97 Respiratory 18 18 18 Rate Blood Pressure 129/87 130/93 O2 Sat by Pulse 99 Oximetry 11/05/20 13:00 Temperature Pulse Rate 99 Respiratory 18 Rate Blood Pressure 144/90 O2 Sat by Pulse Oximetry Chest Pain MDM - MDM Chest x-ray labs EKG reviewed are unremarkable this time. I did discuss case at Dr. Foley in which the patient be admitted to cardiac absent with cardiology evaluation repeat troponins. Disposition Clinical Impression: Exertional dyspnea, Chest pain Disposition: ADMITTED IP TO THIS HOSP Condition: Fair Referrals: Elio Foley MD [Primary Care Provider] - 1-2 days
[2020-11-05 12:12] LABS: ALT 31 U/L (4-49); AST 37 U/L (17-59); African American GFR (CKD) >90 (>60 ml/min/1.73 sqM); Albumin 4.9 g/dL (3.5-5.0); Alkaline Phosphatase 98 U/L (38-126); Anion Gap 11 mmol/L; Blood Urea Nitrogen 12 mg/dL (9-20); Calcium 10.4 mg/dL (8.4-10.2); Carbon Dioxide 25 mmol/L (22-30); Chloride 103 mmol/L (98-107); Glucose 130 mg/dL (74-99); Lipase 180 U/L (23-300); Magnesium 2.2 mg/dL (1.6-2.3); Non-African American GFR(CKD) >90 (>60 ml/min/1.73 sqM); Potassium 4.4 mmol/L (3.5-5.1); Sodium 139 mmol/L (137-145); Total Bilirubin 0.6 mg/dL (0.2-1.3); Total Protein 8.4 g/dL (6.3-8.2)
[2020-11-05 12:13] LABS: D-Dimer 0.21 mg/L FEU (<0.60); INR 0.9 (<1.2); Prothrombin Time 10.2 sec (9.0-12.0)
--- NOTE | 2020-11-05 12:14 | XR ---
EXAMINATION TYPE: XR chest 2V DATE OF EXAM: 11/05/2020 COMPARISON: 06/22/2020 INDICATION: Chest pain TECHNIQUE: Frontal and lateral views of the chest are obtained. FINDINGS: The heart size is normal. The pulmonary vasculature is normal. The lungs are clear. Spondylosis through the thoracic spine. IMPRESSION: 1. No acute pulmonary process.
[2020-11-05 12:15] LABS: Partial Thromboplastin Time 18.5 sec (22.0-30.0)
[2020-11-05] MEDS ORDERED: HEPARIN SODIUM,PORCINE 5,000 UNIT/ML 1 ML VIAL IV ONE (13:31)
[2020-11-05] MEDS ORDERED: HEPARIN SODIUM,PORCINE 5,000 UNIT/ML 1 ML VIAL IV PRN (13:31)
[2020-11-05] MEDS ORDERED: NITROGLYCERIN SL TABS 0.4 MG TAB SUBLINGUAL PRN (13:31)
[2020-11-05] MEDS ORDERED: HEPARIN SOD,PORK IN 0.45% NACL 25,000 UNIT in 0.45% NACL 1 250ML.BAG IV SCH (13:45)
[2020-11-05] MEDS ORDERED: LORazepam 2 MG/ML INJ IV STA (13:48)
[2020-11-05] MEDS ORDERED: LABETALOL 5 MG/ML VIAL MDV IVP STA (13:49)
[2020-11-05] MEDS ORDERED: HYDROcodone/APAP 10-325MG 1 EACH TAB PO PRN (17:18)
[2020-11-05] MEDS ORDERED: ATORVASTATIN 40 MG TAB PO SCH (17:30)
[2020-11-05] MEDS: carvediloL 12.5 MG TAB PO SCH (17:52)
[2020-11-05] MEDS: busPIRone HCl 10 MG TAB PO SCH (22:39)
[2020-11-05] MEDS: CYCLOBENZAPRINE 10 MG TAB PO SCH (22:39)
[2020-11-05] MEDS: LORATADINE 10 MG TAB PO SCH (22:55)
[2020-11-06 03:02] VITALS: PULSE 89
[2020-11-06 06:27] LABS: Cholesterol 135 mg/dL (<200); HDL Cholesterol 41 mg/dL (40-60); LDL Cholesterol,Calculated 65 mg/dL (0-99); Triglycerides 143 mg/dL (<150)
[2020-11-06 08:38] VITALS: BP 120/80; RESP 16; TEMP 97.8
[2020-11-06] MEDS ORDERED: FUROSEMIDE 40 MG TAB PO SCH (09:00)
[2020-11-06] MEDS ORDERED: LOSARTAN 25 MG TAB PO SCH (09:00)
[2020-11-06] MEDS ORDERED: LORATADINE 10 MG TAB PO SCH (09:00)
[2020-11-06] MEDS ORDERED: POTASSIUM CHLORIDE ER 20 MEQ TAB.ER PO SCH (09:00)
[2020-11-06] MEDS ORDERED: ASPIRIN 325 MG TAB PO SCH (09:00)
[2020-11-06] MEDS: busPIRone HCl 10 MG TAB PO SCH (09:23)
[2020-11-06] MEDS: CYCLOBENZAPRINE 10 MG TAB PO SCH (09:23)
[2020-11-06] MEDS: carvediloL 12.5 MG TAB PO SCH (09:23)
[2020-11-06] MEDS: LORATADINE 10 MG TAB PO SCH (09:45)
--- NOTE | 2020-11-06 09:51 | P.CRDCN ---
History of Present Illness History of present illness: HISTORY OF PRESENTING ILLNESS This is a pleasant 65 year-old male past medical history significant for dyslipidemia, hypertension, history of daily alcohol intake, chronic back pain and family history of coronary artery disease. He follows in the office with Dr. Fisher. We have been consulted for exertional shortness of breath and chest pain. He presented to the hospital for increased shortness of breath. Patient states over the weekend he was visiting his son in [place] and started to have shortness of breath with activity. He states that it's been similar to when he was in the hospital last year. Once he got home shortness of breath worsened. He had difficulty walking from his living room to his bathroom without feeling more short of breath. He also has been having increased seasonal allergies, doesn't making shortness of breath worse he thinks. He also has been having some dull intermittent chest pain. It is nonexertional, right sided, nonradiating. He also endorses a cough and increased phlegm. He denies alcohol use. He does smoke marijuana frequently. He denies any illicit drug use. Family history he states both of his brothers had already undergone bypass grafting. 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 He states he's been compliant with his medication. EKG sinus rhythm with no acute STT wave abnormalities. Troponin negative 3, BNP <11, creatinine 0.82, potassium 4.4, sodium 139, WBC 9, hemoglobin 17.8. Patient's current cardiac medication include potassium chloride 20meq daily, losartain 25mg daily, Lasix 40mg daily, carvedilol 12.5mg BID, atorvastatin 40mg daily, aspirin 81mg daily In June 2020, patient was admitted with evidence of CHF and cardiomyopathy, echocardiogram revealed severe global hypokinesis of the LV. Left ventricular systolic function is severely impaired EF between 2024%. Patient had a cardiac catheterization which was found to have moderate disease in the LAD and RCA he was advised maximum medical therapy. He left AGAINST MEDICAL ADVICE, did not take his medications and he followed up outpatient and was restarted on his medications 06/2020: Cardiac catheterization revealed 50% mid RCA and a 50% mid LAD lesion. No significant disease in the circumflex. REVIEW OF SYSTEMS At the time of my exam: CONSTITUTIONAL: Denies fever or chills. CARDIOVASCULAR: Complains of shortness of breath and orthopnea. + occasional chest pain, Denies PND or palpitations. RESPIRATORY: +cough. GASTROINTESTINAL: Denies abdominal pain, diarrhea, constipation, nausea or vomiting. MUSCULOSKELETAL: Denies myalgias. NEUROLOGIC: Denies numbness, tingling or weakness. ENDOCRINE: Denies fatigue, weight change, polydipsia or polyurina. GENITOURINARY: Denies burning, hematuria or urgency with micturation. HEMATOLOGIC: Denies history of anemia or bleeding. PHYSICAL EXAMINATION Blood pressure 120/80 heart rate 89 afebrile and maintaining oxygen saturation on room air. CONSTITUTIONAL: No apparent distress. HEENT: Head is normocephalic. Pupils are equal, round. Sclerae anicteric. Mucous membranes of the mouth are moist. No JVD. No carotid bruit. CHEST EXAMINATION: Clear to auscultation bilaterally. No wheezes or rhonchi. No chest wall tenderness is noted on palpation or with deep breathing. HEART EXAMINATION: Regular rate and rhythm. S1, S2 heard. No murmurs, gallops or rub. ABDOMEN: Soft, nontender. Positive bowel sounds. EXTREMITIES: 2+ peripheral pulses, no lower extremity edema and no calf tenderness. NEUROLOGIC EXAMINATION: Patient is awake, alert and oriented x3. ASSESSMENT Chest pain, atypical- acute coronary chest syndrome ruled out. Anxiety/stress may be a component due to patient's increased stress load at work History of Acute systolic heart failure History of Cardiomyopathy, unknown if ischemic or non-ischemic at this point. Dyslipidemia History of hypertension PLAN -Stop heparin drip -Will obtain 2-D echocardiogram -Continue potassium chloride 20meq daily, losartan 25mg daily, Lasix 40mg daily, carvedilol 12.5mg BID, atorvastatin 40mg daily, aspirin 81mg daily -If echocardiogram with no acute findings, ok to discharge from cardiology standpoint and patient will follow up in outpatient office. Nurse Practitioner note has been reviewed, I agree with a documented findings and plan of care. Patient was seen and examined. Past Medical History Past Medical History: Chest Pain / Angina, Hyperlipidemia, Hypertension Additional Past Medical History / Comment(s): DJD chronic back pain, History of Any Multi-Drug Resistant Organisms: None Reported Past Surgical History: Cholecystectomy Additional Past Surgical History / Comment(s): knee surgery at the age of 21 Past Anesthesia/Blood Transfusion Reactions: No Reported Reaction Past Psychological History: Anxiety, PTSD Smoking Status: Former smoker Additional Past Alcohol Use History / Comment(s): states has not had a beer since June 2020 Past Drug Use History: Marijuana Additional Drug Use History / Comment(s): current - Past Family History Brother(s) Family Medical History: Coronary Artery Disease (CAD) Additional Family Medical History / Comment(s): 2 boys with a CABG Mother Family Medical History: Myocardial Infarction ([place]) Additional Family Medical History / Comment(s): mom passed from a [place] Medications and Allergies Home Medications Medication Instructions Recorded Confirmed Type Aspirin EC [Ecotrin Low Dose] 81 mg PO BID 06/22/20 11/05/20 History Atorvastatin [Lipitor] 40 mg PO AC-SUPPER 06/22/20 11/05/20 History Cyclobenzaprine [Flexeril] 10 mg PO BID 06/22/20 11/05/20 History HYDROcodone/APAP 10-325MG [[place] 1 tab PO Q8HR PRN 06/22/20 11/05/20 History 10-325] Loratadine 10 mg PO DAILY 06/22/20 11/05/20 History Carvedilol [Coreg] 12.5 mg PO AC-BID 11/05/20 11/05/20 History Cyclobenzaprine [Flexeril] 10 mg PO DAILY@1400 PRN 11/05/20 11/05/20 History Furosemide [Lasix] 40 mg PO DAILY 11/05/20 11/05/20 History Losartan [Cozaar] 25 mg PO DAILY 11/05/20 11/05/20 History Potassium Chloride [Klor-Con 20] 20 meq PO DAILY 11/05/20 11/05/20 History Pseudoephedrine 12Hr [Sudafed 12Hr] 120 mg PO Q12H PRN 11/05/20 11/05/20 History busPIRone HCL [Buspar] 30 mg PO BID 11/05/20 11/05/20 History Allergies Allergy/AdvReac Type Severity Reaction Status Date / Time No Known Allergies Allergy Verified 11/05/20 12:57 Physical Exam Vitals: Vital Signs Temp Pulse Pulse Resp BP BP Pulse Ox 11/05/20 15:00 16 11/05/20 14:50 98.1 F 89 16 144/81 97 11/05/20 14:00 89 18 113/94 98 11/05/20 13:00 99 18 144/90 11/05/20 12:00 97 18 130/93 11/05/20 11:50 18 11/05/20 11:10 97.9 F 104 H 18 129/87 99 Intake and Output 11/05/20 11/05/20 11/05/20 06:59 14:59 22:59 Output Total 400 Balance -400 Output: Urine 400 Other: Voiding Method Urinal Weight 104.326 kg 104.326 kg Results 11/05/20 11:45 11/05/20 11:45 Cardiac Enzymes 11/05/20 11/05/20 11/05/20 Range/Units 11:45 11:45 15:33 AST 37 (17-59) U/L Troponin I <0.012 <0.012 (0.000-0.034) ng/mL Coagulation 11/05/20 Range/Units 11:45 PT 10.2 (9.0-12.0) sec APTT 18.5 L (22.0-30.0) sec CBC 11/05/20 Range/Units 11:45 WBC 9.0 (3.8-10.6) k/uL RBC 5.28 (4.30-5.90) m/uL Hgb 17.8 H (13.0-17.5) gm/dL Hct 50.3 (39.0-53.0) % Plt Count 206 (150-450) k/uL Comprehensive Metabolic Panel 11/05/20 Range/Units 11:45 Sodium 139 (137-145) mmol/L Potassium 4.4 (3.5-5.1) mmol/L Chloride 103 (98-107) mmol/L Carbon Dioxide 25 (22-30) mmol/L BUN 12 (9-20) mg/dL Creatinine 0.82 (0.66-1.25) mg/dL Glucose 130 H (74-99) mg/dL Calcium 10.4 H (8.4-10.2) mg/dL AST 37 (17-59) U/L ALT 31 (4-49) U/L Alkaline Phosphatase 98 (38-126) U/L Total Protein 8.4 H (6.3-8.2) g/dL Albumin 4.9 (3.5-5.0) g/dL Current Medications Generic Name Dose Route Start Last Admin Trade Name Freq PRN Reason Stop Dose Admin Aspirin 325 mg 11/06/20 09:00 Aspirin 325 Mg Tab PO DAILY [facility] Heparin Sodium (Porcine) 0 unit 11/05/20 13:31 Heparin Sodium,Porcine 5,000 Unit/Ml 1 Ml Vial IV Q6HR PRN Low PTT Protocol Heparin Sodium/Sodium Chloride 250 mls @ 10.005 mls/hr 11/05/20 13:45 11/05/20 13:56 25,000 unit/ Sodium Chloride IV 9.59 units/kg/hr .Q24H [place] 10.005 mls/hr Administration Protocol 9.59 UNITS/KG/HR Nitroglycerin 0.4 mg 11/05/20 13:31 Nitroglycerin Sl Tabs 0.4 Mg Tab SUBLINGUAL Q5M PRN Chest Pain Intake and Output 11/05/20 11/05/20 11/05/20 06:59 14:59 22:59 Output Total 400 Balance -400 Output: Urine 400 Other: Voiding Method Urinal Weight 104.326 kg 104.326 kg Patient Weight 11/06/20 06:59 Weight 104.326 kg 11/05/20 11:45 11/05/20 11:45
[2020-11-06 09:59] LABS: Platelet Count 275 X 10*3/uL (140-440)
--- NOTE | 2020-11-06 12:00 | ECHOF ---
Referral Reason:shortness of breath MEASUREMENTS -------- HEIGHT: 177.8 cm WEIGHT: 104.3 kg BP: 120/80 RVIDd: 3.6 cm (< 3.3) IVSd: 1.5 cm (0.6 - 1.1) LVIDd: 3.8 cm (3.9 - 5.3) LVPWd: 1.4 cm (0.6 - 1.1) IVSs: 1.5 cm LVIDs: 3.0 cm LVPWs: 1.9 cm LAESV Index (A-L): 24.07 ml/m Ao Diam: 3.9 cm (2.0 - 3.7) AV Cusp: 2.2 cm (1.5 - 2.6) MV EXCURSION: 18.162 mm (> 18.000) MV EF SLOPE: 62 mm/s (70 - 150) EPSS: 1.3 cm MV E Omega: 0.63 m/s MV DecT: 151 ms MV A Omega: 1.04 m/s MV E/A Ratio: 0.60 RAP: 5.00 mmHg RVSP: 16.37 mmHg FINDINGS -------- Sinus rhythm. This was a technically difficult study with suboptimal apical views. The left ventricular size is normal. There is moderate concentric left ventricular hypertrophy. O verall left ventricular systolic function is mildly impaired with, an EF between 45 - 50 %. Atypica l septal wall motion The right ventricle is mildly enlarged. Normal LA size by volume 22+/-6 ml/m2. The right atrial size is normal. 5.0mg of Lumason was utilized for enhancement of images Interatrial and interventricular septum intact. The aortic valve is trileaflet and appears structurally normal. There is mild aortic valve sclerosi s. There is no evidence of aortic regurgitation. No mitral regurgitation. Mild tricuspid regurgitation present. There is no evidence of pulmonary hypertension. The right v entricular systolic pressure, as measured by Doppler, is 16.37mmHg. There is no pulmonic regurgitation present. The aortic root size is normal. IVC Not well visulized. There is no pericardial effusion. CONCLUSIONS -------- 1. The left ventricular size is normal. 2. There is moderate concentric left ventricular hypertrophy. 3. Overall left ventricular systolic function is mildly impaired with, an EF between 45 - 50 %. 4. The right ventricle is mildly enlarged. 5. There is mild aortic valve sclerosis. 6. Mild tricuspid regurgitation present. TREASURY ANALYST: Hanna Kay RDCS
--- NOTE | 2020-11-06 12:04 | P.HPIM ---
History of Present Illness History and physical and Discharge Summary This is a 65-year-old gentleman admitted to the ER with complaints of right- sided, nonradiating chest pain at rest, accompanied by exertional shortness of breath, productive cough since the weekend while visiting son in [place], in a patient with history of angina, cardiomyopathy, alcohol abuse, hyperlipidemia, hypertension, chronic back pain, DJD, anxiety, former nicotine dependence, frequent marijuana use and seasonal ALLERGIES. 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 Denies nausea, vomiting or diarrhea. Denies abdominal pain. Vital signs stable, maintaining O2 sats in the 90s on room air. Troponins negative 3. EKG reporting normal sinus rhythm, inferior infarct, age undetermined. Chest x-ray reporting no acute pulmonary process. Hematology unremarkable with exception hemoglobin 17.8, d-dimer 0.21, chemistry panel un remarkable with the exception of calcium mildly elevated 10.4. Cholesterol panel reporting triglycerides 143, cholesterol 135, LDL 65, HDL 41. Coronavirus not detected. Initiated on heparin drip, cardiology consulted. Review of Systems ROS Statement: Those systems with pertinent positive or pertinent negative responses have been documented in the HPI. ROS Other: All systems not noted in ROS Statement are negative. Past Medical History Past Medical History: Chest Pain / Angina, Hyperlipidemia, Hypertension Additional Past Medical History / Comment(s): DJD chronic back pain, History of Any Multi-Drug Resistant Organisms: None Reported Past Surgical History: Cholecystectomy Additional Past Surgical History / Comment(s): knee surgery at the age of 21 Past Anesthesia/Blood Transfusion Reactions: No Reported Reaction Past Psychological History: Anxiety, PTSD Smoking Status: Former smoker Additional Past Alcohol Use History / Comment(s): states has not had a beer since June 2020 Past Drug Use History: Marijuana Additional Drug Use History / Comment(s): current - Past Family History Brother(s) Family Medical History: Coronary Artery Disease (CAD) Additional Family Medical History / Comment(s): 2 boys with a CABG Mother Family Medical History: Myocardial Infarction ([place]) Additional Family Medical History / Comment(s): mom passed from a [place] Medications and Allergies Home Medications Medication Instructions Recorded Confirmed Type Aspirin EC [Ecotrin Low Dose] 81 mg PO BID 06/22/20 11/05/20 History Atorvastatin [Lipitor] 40 mg PO AC-SUPPER 06/22/20 11/05/20 History Cyclobenzaprine [Flexeril] 10 mg PO BID 06/22/20 11/05/20 History HYDROcodone/APAP 10-325MG [[place] 1 tab PO Q8HR PRN 06/22/20 11/05/20 History 10-325] Loratadine 10 mg PO DAILY 06/22/20 11/05/20 History Carvedilol [Coreg] 12.5 mg PO AC-BID 11/05/20 11/05/20 History Cyclobenzaprine [Flexeril] 10 mg PO DAILY@1400 PRN 11/05/20 11/05/20 History Furosemide [Lasix] 40 mg PO DAILY 11/05/20 11/05/20 History Losartan [Cozaar] 25 mg PO DAILY 11/05/20 11/05/20 History Potassium Chloride [Klor-Con 20] 20 meq PO DAILY 11/05/20 11/05/20 History Pseudoephedrine 12Hr [Sudafed 12 120 mg PO Q12H PRN 11/05/20 11/05/20 History Hour] busPIRone HCL [Buspar] 30 mg PO BID 11/05/20 11/05/20 History Allergies Allergy/AdvReac Type Severity Reaction Status Date / Time No Known Allergies Allergy Verified 11/05/20 12:57 Physical Exam Vitals: Vital Signs Temp Pulse Pulse Resp BP BP Pulse Ox 11/06/20 08:00 16 11/06/20 07:00 97.8 F 89 16 120/80 94 L 11/06/20 02:00 98.2 F 89 18 99/59 94 L 11/05/20 20:00 98.4 F 93 18 129/72 93 L 11/05/20 15:00 16 11/05/20 14:50 98.1 F 89 16 144/81 97 11/05/20 14:00 89 18 113/94 98 11/05/20 13:00 99 18 144/90 11/05/20 12:00 97 18 130/93 11/05/20 11:50 18 Intake and Output 11/05/20 11/06/20 11/06/20 22:59 06:59 14:59 Output Total 400 Balance -400 Output: Urine 400 Other: Voiding Method Urinal Urinal # Voids 1 3 # Bowel Movements 1 1 Weight 104.326 kg - Exam General: [Patient awake, alert and oriented times 3. Patient in no acute distress.] HEENT: [PERRL. EOMI. No pharyngeal erythema or exudate.] Neck: [No adenopathy.] Cardiac: [Heart regular in rate and rhythm. No S3. No S4. No clicks, rubs. No murmur.] Lungs: [Clear to auscultation bilaterally.] Abdomen: [No mass. No organomegaly. Bowel sounds presnt and normoactive in all 4 quadrants.] Extremes: [No edema no cyanosis no claudication normal pulses]] Skin: [No rash, warm and dry. Neurologic: [No lateralizing deficits. CN II - XII grossly intact.] Lymphatic: [No adenopathy.] Results CBC & Chem 7: 11/06/20 05:14 11/05/20 11:45 Labs: Abnormal Lab Results - Last 24 Hours (Table) 11/05/20 11/05/20 11/05/20 Range/Units 11:45 11:45 11:45 Hgb 17.8 H (13.0-17.5) gm/dL APTT 18.5 L (22.0-30.0) sec Glucose 130 H (74-99) mg/dL Calcium 10.4 H (8.4-10.2) mg/dL Total Protein 8.4 H (6.3-8.2) g/dL 11/05/20 11/06/20 Range/Units 19:47 05:14 Hgb (13.0-17.5) gm/dL APTT 48.4 H 45.5 H (22.0-30.0) sec Glucose (74-99) mg/dL Calcium (8.4-10.2) mg/dL Total Protein (6.3-8.2) g/dL Thrombosis Risk Factor Assmnt - Choose All That Apply Any of the Below Risk Factors Present?: Yes Each Factor Represents 1 point: Obesity (BMI >25) Other Risk Factors: Yes Each Risk Factor Represents 2 Points: Age 61-74 years Other congenital or acquired thrombophilia - If yes, enter type in comment: No Thrombosis Risk Factor Assessment Total Risk Factor Score: 3 Thrombosis Risk Factor Assessment Level: Moderate Risk Assessment and Plan Assessment: Chest pain, in a patient reporting under significant stress, atypical,ACS ruled out as per cardiology. Systolic CHF, chronic Cardiomyopathy, possibly alcohol related Alcohol abuse Dyslipidemia Former nicotine dependence Plan: Continue on current medication regime ,monitoring and symptomatic treatment. Evaluated by cardiology, echo ordered. Patient will be discharged home today in a stable condition with guarded prognosis pending echo results, final DC recommendations and clearance from cardiology. Discharge Medication List Aspirin EC [Ecotrin Low Dose] 81 mg PO BID 06/22/20 [History] Atorvastatin [Lipitor] 40 mg PO AC-SUPPER 06/22/20 [History] Cyclobenzaprine [Flexeril] 10 mg PO BID 06/22/20 [History] HYDROcodone/APAP 10-325MG [[place] 10-325] 1 tab PO Q8HR PRN 06/22/20 [History] Loratadine 10 mg PO DAILY 06/22/20 [History] Carvedilol [Coreg] 12.5 mg PO AC-BID 11/05/20 [History] Cyclobenzaprine [Flexeril] 10 mg PO DAILY@1400 PRN 11/05/20 [History] Furosemide [Lasix] 40 mg PO DAILY 11/05/20 [History] Losartan [Cozaar] 25 mg PO DAILY 11/05/20 [History] Potassium Chloride [Klor-Con 20] 20 meq PO DAILY 11/05/20 [History] Pseudoephedrine 12Hr [Sudafed 12 Hour] 120 mg PO Q12H PRN 11/05/20 [History] busPIRone HCL [Buspar] 30 mg PO BID 11/05/20 [History] The impression and plan of care has been dictated as directed. : I performed a history and examination of this patient, discussed the same with the dictator. I agree with the dictator's note ,documented as a scribe. Any additional findings or plans will be noted.
--- NOTE | 2020-11-06 13:51 | CT ---
EXAMINATION TYPE: CT chest wo con DATE OF EXAM: 11/06/2020 COMPARISON: None HISTORY: PNEUMONIA, dyspnea CT DLP: 726 mGycm, Automated exposure control for dose reduction was used. CONTRAST: Performed injected with 0 mL of Isovue 300. TECHNIQUE: Axial images were obtained at 5 mm thick sections. Reconstructed images are reviewed on [employer] computer in the coronal plane. FINDINGS: Portion of the thyroid visualized is normal. No suspicious lung nodules or focal infiltrates are present. No enlarged mediastinal or hilar adenopathy is evident. The ascending aorta diameter at the level o f the main pulmonary artery is 4.1 cm. The main pulmonary artery diameter at the bifurcation is 2.7 cm. Mild coronary artery calcifications present. Small hiatal hernia may be present. Limited CT sections are obtained through the upper abdomen. Abdomen is essentially unremarkable. IMPRESSIONS: 1. Ascending thoracic aortic aneurysm of 4.1 cm. 2. No acute pulmonary process.
[2020-11-06] MEDS ORDERED: CYCLOBENZAPRINE 10 MG TAB PO PRN (14:00)
[2020-11-07] MEDS ORDERED: ASPIRIN 81 MG PO SCH (09:00)
== END 2020-11-06 14:50 ==
LOC: EC 10:49 → 6NMEDSUR 13:35
PROVIDERS: ADMIT Family Medicine; ATTEND Family Medicine
DX: R07.89 Other chest pain (principal); F43.9 Reaction to severe stress, unspecified; I11.0 Hypertensive heart disease with heart failure; I50.22 Chronic systolic (congestive) heart failure; F10.10 Alcohol abuse, uncomplicated; E78.5 Hyperlipidemia, unspecified; Z87.891 Personal history of nicotine dependence; E11.9 Type 2 diabetes mellitus without complications; M19.90 Unspecified osteoarthritis, unspecified site; I25.10 Atherosclerotic heart disease of native coronary artery without angina pectoris; I42.9 Cardiomyopathy, unspecified; Z90.49 Acquired absence of other specified parts of digestive tract; F41.9 Anxiety disorder, unspecified; F43.10 Post-traumatic stress disorder, unspecified; G89.29 Other chronic pain; M54.9 Dorsalgia, unspecified; J30.2 Other seasonal allergic rhinitis; I71.2 Thoracic aortic aneurysm, without rupture; E66.9 Obesity, unspecified; Z68.33 Body mass index [BMI] 33.0-33.9, adult; Z79.891 Long term (current) use of opiate analgesic; Z79.899 Other long term (current) drug therapy; Z79.82 Long term (current) use of aspirin; Z82.49 Family history of ischemic heart disease and other diseases of the circulatory system; Z20.822 Contact with and (suspected) exposure to COVID-19
CPT/HCPCS: 96366 ×2; 93005 ×2; 96376; 96365; 96375; 99285; 36415; 85379; 83880; 80061; 80053; 83690; 83735; 84484; 85025; 85049; 85610; 85730 ×2; 87635; 71046; 71250; G0378 ×2; C8929; J2060; J1644 ×2; Q9950; 93306

== ENCOUNTER 2021-07-27 23:58 | Inpatient (IN) | payer OTHER ==
[2021-07-28 01:03] LABS: Basophils % (A) 0 %; Eosinophils % (A) 0 %; HCT 45.5 % (39.0-53.0); HGB 15.3 gm/dL (13.0-17.5); Lymphocytes # (A) 0.7 k/uL (1.0-4.8); Lymphocytes % (A) 12 %; MCH 33.6 pg (25.0-35.0); MCHC 33.6 g/dL (31.0-37.0); MCV 99.8 fL (80.0-100.0); Mean Platelet Volume 7.4; Monocytes # (A) 0.2 k/uL (0-1.0); Monocytes % (A) 4 %; Neutrophils # (A) 4.8 k/uL (1.3-7.7); Neutrophils % (A) 83 %; Platelet Count 205 k/uL (150-450); RBC 4.56 m/uL (4.30-5.90); RDW 13.4 % (11.5-15.5); WBC 5.8 k/uL (3.8-10.6)
[2021-07-28 01:07] LABS: ALT 34 U/L (4-49); AST 56 U/L (17-59); African American GFR (CKD) >90 (>60 ml/min/1.73 sqM); Albumin 3.7 g/dL (3.5-5.0); Alkaline Phosphatase 71 U/L (38-126); Anion Gap 13 mmol/L; Blood Urea Nitrogen 18 mg/dL (9-20); Calcium 8.2 mg/dL (8.4-10.2); Carbon Dioxide 22 mmol/L (22-30); Chloride 99 mmol/L (98-107); Glucose 158 mg/dL (74-99); Non-African American GFR(CKD) >90 (>60 ml/min/1.73 sqM); Potassium 4.4 mmol/L (3.5-5.1); Sodium 134 mmol/L (137-145); Total Bilirubin 0.7 mg/dL (0.2-1.3); Total Protein 6.4 g/dL (6.3-8.2)
--- NOTE | 2021-07-28 01:07 | XR ---
EXAMINATION TYPE: XR chest 2V DATE OF EXAM: 07/28/2021 COMPARISON: NONE HISTORY: Chest pain TECHNIQUE: 2 views FINDINGS: There is some coarse interstitial and to a lesser extent airspace infiltrate right upper lo be and left lower lobe. Heart size is normal. Mediastinum is normal. There is no pleural effusion. Th ere is no heart failure. IMPRESSION: Bilateral patchy pneumonia as above appears new compared to old exam. Normal heart.
[2021-07-28 01:54] LABS: INR 0.9 (<1.2); Partial Thromboplastin Time 25.1 sec (22.0-30.0); Prothrombin Time 10.1 sec (9.0-12.0)
[2021-07-28] MEDS ORDERED: MAG HYDROX/AL HYDROX/SIMETH 30 ML CUP PO PRN (03:48)
[2021-07-28] MEDS ORDERED: NALOXONE 0.4 MG/ML 1 ML VIAL IV PRN (03:48)
[2021-07-28] MEDS ORDERED: DEXAMETHASONE SOD PHOSPHATE 10 MG/ML 1 ML VIAL IVP STA (03:58)
[2021-07-28] MEDS ORDERED: MORPHINE SULFATE 4 MG/ML SYRINGE IV STA (03:59)
[2021-07-28] MEDS: SODIUM CHLORIDE 0.9% 1,000 ML IV SCH ×2 (04:18→19:44)
--- NOTE | 2021-07-28 06:58 | ED ---
SOB HPI - General Chief Complaint: Shortness of Breath Stated Complaint: Difficulty Breathing, COVID+ Time Seen by Provider: 07/28/21 00:41 Source: EMS Mode of arrival: EMS Limitations: no limitations - History of Present Illness Initial Comments: This patient is a 65-year-old man who presents with worsening of shortness of breath. Patient had developed cough, fevers chills, headache approximately 4 days ago. Patient tested positive for covid 19 infection. He did reportedly receive antibody infusion from [facility]. Over the course of this evening, patient became more short of breath and pulse oximetry readings were lower. Patient denies chest pain. MD Complaint: shortness of breath, cough -: days(s) Severity scale (1-10): 0 Consistency: constant Improves With: nothing Worsens With: exertion Associated Symptoms: cough Treatments Prior to Arrival: other - Related Data Home Oxygen Therapy: No Home Medications Medication Instructions Recorded Confirmed Aspirin EC [Ecotrin Low Dose] 81 mg PO BID 06/22/20 11/05/20 Atorvastatin [Lipitor] 40 mg PO AC-SUPPER 06/22/20 11/05/20 Cyclobenzaprine [Flexeril] 10 mg PO BID 06/22/20 11/05/20 HYDROcodone/APAP 10-325MG [[place] 1 tab PO Q8HR PRN 06/22/20 11/05/20 10-325] Loratadine 10 mg PO DAILY 06/22/20 11/05/20 Carvedilol [Coreg] 12.5 mg PO AC-BID 11/05/20 11/05/20 Cyclobenzaprine [Flexeril] 10 mg PO DAILY@1400 PRN 11/05/20 11/05/20 Furosemide [Lasix] 40 mg PO DAILY 11/05/20 11/05/20 Losartan [Cozaar] 25 mg PO DAILY 11/05/20 11/05/20 Potassium Chloride [Klor-Con 20] 20 meq PO DAILY 11/05/20 11/05/20 Pseudoephedrine 12Hr [Sudafed 12 120 mg PO Q12H PRN 11/05/20 11/05/20 Hour] busPIRone HCL [Buspar] 30 mg PO BID 11/05/20 11/05/20 Previous Rx's Medication Instructions Recorded Albuterol Inhaler [Ventolin Hfa 2 puff INHALATION RT-QID PRN #1 inh 11/06/20 Inhaler] Allergies Allergy/AdvReac Type Severity Reaction Status Date / Time No Known Allergies Allergy Verified 11/05/20 12:57 Review of Systems ROS Statement: Those systems with pertinent positive or pertinent negative responses have been documented in the HPI. ROS Other: All systems not noted in ROS Statement are negative. Constitutional: Reports: fever, chills, weakness Respiratory: Reports: cough, dyspnea. Denies: wheezes, hemoptysis Cardiovascular: Denies: chest pain, edema, syncope Gastrointestinal: Denies: abdominal pain, vomiting, diarrhea Genitourinary: Denies: dysuria, hematuria Musculoskeletal: Denies: back pain Skin: Denies: rash Neurological: Reports: headache. Denies: weakness, numbness Past Medical History Past Medical History: Chest Pain / Angina, Heart Failure, Hyperlipidemia, Hypertension Additional Past Medical History / Comment(s): DJD chronic back pain, History of Any Multi-Drug Resistant Organisms: None Reported Past Surgical History: Cholecystectomy Additional Past Surgical History / Comment(s): knee surgery at the age of 21 Past Anesthesia/Blood Transfusion Reactions: No Reported Reaction Past Psychological History: Anxiety, PTSD Smoking Status: Never smoker Past Alcohol Use History: None Reported Additional Past Alcohol Use History / Comment(s): states has not had a beer since June 2020 Past Drug Use History: Marijuana Additional Drug Use History / Comment(s): current - Past Family History Brother(s) Family Medical History: Coronary Artery Disease (CAD) Additional Family Medical History / Comment(s): 2 boys with a CABG Mother Family Medical History: Myocardial Infarction ([place]) Additional Family Medical History / Comment(s): mom passed from a [place] General Exam Limitations: no limitations General appearance: alert, in no apparent distress Head exam: Present: atraumatic, normocephalic Eye exam: Present: normal appearance Neck exam: Present: normal inspection Respiratory exam: Present: respiratory distress, rales. Absent: wheezes, rhonchi, stridor, accessory muscle use, decreased breath sounds Cardiovascular Exam: Present: regular rate, normal rhythm, systolic murmur. Absent: diastolic murmur, rubs, gallop GI/Abdominal exam: Present: soft. Absent: distended, tenderness, guarding, rebound, rigid, mass Extremities exam: Present: normal inspection, normal capillary refill. Absent: pedal edema, calf tenderness Back exam: Present: normal inspection. Absent: CVA tenderness (R), CVA tenderness (L) Neurological exam: Present: alert Skin exam: Present: warm, dry, intact, normal color. Absent: rash Course Vital Signs 07/28/21 07/28/21 07/28/21 00:00 00:31 01:01 Temperature 98.5 F Pulse Rate 74 68 69 Respiratory 24 22 22 Rate Blood Pressure 127/79 125/73 O2 Sat by Pulse 84 L 93 L 94 L Oximetry 07/28/21 03:48 Temperature Pulse Rate 72 Respiratory 20 Rate Blood Pressure 126/84 O2 Sat by Pulse 95 Oximetry Medical Decision Making - Lab Data Result diagrams: 07/28/21 00:48 07/28/21 00:48 Lab Results 07/28/21 07/28/21 07/28/21 Range/Units 00:48 00:48 00:48 WBC 5.8 (3.8-10.6) k/uL RBC 4.56 (4.30-5.90) m/uL Hgb 15.3 (13.0-17.5) gm/dL Hct 45.5 (39.0-53.0) % MCV 99.8 (80.0-100.0) fL MCH 33.6 (25.0-35.0) pg MCHC 33.6 (31.0-37.0) g/dL RDW 13.4 (11.5-15.5) % Plt Count 205 (150-450) k/uL MPV 7.4 Neutrophils % 83 % Lymphocytes % 12 % Monocytes % 4 % Eosinophils % 0 % Basophils % 0 % Neutrophils # 4.8 (1.3-7.7) k/uL Lymphocytes # 0.7 L (1.0-4.8) k/uL Monocytes # 0.2 (0-1.0) k/uL Eosinophils # 0.0 (0-0.7) k/uL Basophils # 0.0 (0-0.2) k/uL PT 10.1 (9.0-12.0) sec INR 0.9 (<1.2) APTT 25.1 (22.0-30.0) sec D-Dimer 0.33 (<0.60) mg/L FEU Sodium 134 L (137-145) mmol/L Potassium 4.4 (3.5-5.1) mmol/L Chloride 99 (98-107) mmol/L Carbon Dioxide 22 (22-30) mmol/L Anion Gap 13 mmol/L BUN 18 (9-20) mg/dL Creatinine 0.84 (0.66-1.25) mg/dL Est GFR (CKD-EPI)AfAm >90 (>60 ml/min/1.73 sqM) Est GFR (CKD-EPI)NonAf >90 (>60 ml/min/1.73 sqM) Glucose 158 H (74-99) mg/dL Plasma Lactic Acid Oscar (0.7-2.0) mmol/L Calcium 8.2 L (8.4-10.2) mg/dL Total Bilirubin 0.7 (0.2-1.3) mg/dL AST 56 (17-59) U/L ALT 34 (4-49) U/L Alkaline Phosphatase 71 (38-126) U/L Troponin I (0.000-0.034) ng/mL NT-Pro-B Natriuret Pep pg/mL Total Protein 6.4 (6.3-8.2) g/dL Albumin 3.7 (3.5-5.0) g/dL 07/28/21 07/28/21 07/28/21 Range/Units 00:48 00:48 00:48 WBC (3.8-10.6) k/uL RBC (4.30-5.90) m/uL Hgb (13.0-17.5) gm/dL Hct (39.0-53.0) % MCV (80.0-100.0) fL MCH (25.0-35.0) pg MCHC (31.0-37.0) g/dL RDW (11.5-15.5) % Plt Count (150-450) k/uL MPV Neutrophils % % Lymphocytes % % Monocytes % % Eosinophils % % Basophils % % Neutrophils # (1.3-7.7) k/uL Lymphocytes # (1.0-4.8) k/uL Monocytes # (0-1.0) k/uL Eosinophils # (0-0.7) k/uL Basophils # (0-0.2) k/uL PT (9.0-12.0) sec INR (<1.2) APTT (22.0-30.0) sec D-Dimer (<0.60) mg/L FEU Sodium (137-145) mmol/L Potassium (3.5-5.1) mmol/L Chloride (98-107) mmol/L Carbon Dioxide (22-30) mmol/L Anion Gap mmol/L BUN (9-20) mg/dL Creatinine (0.66-1.25) mg/dL Est GFR (CKD-EPI)AfAm (>60 ml/min/1.73 sqM) Est GFR (CKD-EPI)NonAf (>60 ml/min/1.73 sqM) Glucose (74-99) mg/dL Plasma Lactic Acid Oscar 1.2 (0.7-2.0) mmol/L Calcium (8.4-10.2) mg/dL Total Bilirubin (0.2-1.3) mg/dL AST (17-59) U/L ALT (4-49) U/L Alkaline Phosphatase (38-126) U/L Troponin I <0.012 (0.000-0.034) ng/mL NT-Pro-B Natriuret Pep 54 pg/mL Total Protein (6.3-8.2) g/dL Albumin (3.5-5.0) g/dL Disposition Clinical Impression: COVID-19, Pneumonia Disposition: ADMITTED IP TO THIS HOSP Condition: Fair Is patient prescribed a controlled substance at d/c from ED?: No
[2021-07-28] MEDS: FAMOTIDINE 20 MG TAB PO SCH ×2 (08:15→19:53)
[2021-07-28] MEDS: DEXAMETHASONE SOD PHOSPHATE 10 MG/ML 1 ML VIAL IVP SCH (08:15)
[2021-07-28] MEDS: ACETAMINOPHEN TAB 325 MG TAB PO PRN (08:21)
--- NOTE | 2021-07-28 10:45 | P.HPIM ---
History of Present Illness Chief Complaint: COVID-19 pneumonia This is a 65-year-old male well-known to me. He had been and getting sick last Friday. He was tested for COVID-19 and was positive. Unfortunately this patient is not vaccinated. He did receive monoclonal antibody infusion. On Friday he was initiated on Decadron and colchicine due to a obesity, history of smoking and chronic pain. He presented to the emergency room and [facility] and was found to 19 pneumonia on chest x-ray. KUB due to increased shortness of breath. He was found to have a pulse oximetry of 84 in the emergency room. He is currently on a 50% nonrebreather. His pulse oximeter is improved, but he does continue to short of breath this level. Initial laboratory studies were essentially normal. Diabetes 5 Hemoglobin 53. There Is No Significant Shift. Review of Systems All systems: negative Past Medical History Past Medical History: Chest Pain / Angina, Heart Failure, Hyperlipidemia, Hypertension Additional Past Medical History / Comment(s): DJD chronic back pain, History of Any Multi-Drug Resistant Organisms: None Reported Past Surgical History: Cholecystectomy Additional Past Surgical History / Comment(s): knee surgery at the age of 21 Past Anesthesia/Blood Transfusion Reactions: No Reported Reaction Past Psychological History: Anxiety, PTSD Smoking Status: Never smoker Past Alcohol Use History: None Reported Additional Past Alcohol Use History / Comment(s): states has not had a beer since June 2020 Past Drug Use History: Marijuana Additional Drug Use History / Comment(s): current - Past Family History Brother(s) Family Medical History: Coronary Artery Disease (CAD) Additional Family Medical History / Comment(s): 2 boys with a CABG Mother Family Medical History: Myocardial Infarction ([place]) Additional Family Medical History / Comment(s): mom passed from a [place] Medications and Allergies Home Medications Medication Instructions Recorded Confirmed Type Aspirin EC [Ecotrin Low Dose] 81 mg PO BID 06/22/20 07/28/21 History Atorvastatin [Lipitor] 40 mg PO AC-SUPPER 06/22/20 07/28/21 History Cyclobenzaprine [Flexeril] 10 mg PO TID PRN 06/22/20 07/28/21 History HYDROcodone/APAP 10-325MG [[place] 1 tab PO Q8HR PRN 06/22/20 07/28/21 History 10-325] Carvedilol [Coreg] 12.5 mg PO AC-BID 11/05/20 07/28/21 History Furosemide [Lasix] 40 mg PO DAILY 11/05/20 07/28/21 History Losartan [Cozaar] 25 mg PO DAILY 11/05/20 07/28/21 History Potassium Chloride [Klor-Con 20] 20 meq PO DAILY 11/05/20 07/28/21 History Colchicine [Colcrys] 0.6 mg PO BID 07/28/21 07/28/21 History Dexamethasone 6 mg PO BID 07/28/21 07/28/21 History busPIRone HCL [Buspar] 7.5 mg PO BID 07/28/21 07/28/21 History Allergies Allergy/AdvReac Type Severity Reaction Status Date / Time No Known Allergies Allergy Verified 07/28/21 08:01 Physical Exam Vitals: Vital Signs Temp Pulse Pulse Resp BP BP Pulse Ox 07/28/21 05:28 21 07/28/21 05:16 98.7 F 73 125/79 95 07/28/21 05:09 95 07/28/21 03:48 72 20 126/84 95 07/28/21 01:01 69 22 125/73 94 L 07/28/21 00:31 68 22 93 L 07/28/21 00:00 98.5 F 74 24 127/79 84 L Intake and Output 07/27/21 07/28/21 07/28/21 22:59 06:59 14:59 Output Total 400 Balance -400 Output: Urine 400 Other: Voiding Method Urinal Weight 106.594 kg GENERAL: Fatigued thin male, in mild distress with nonrebreather in place. HEAD: Atraumatic, normocephalic. EYES: Pupils equal round and reactive to light, extraocular movements intact, sclera anicteric, conjunctiva are normal. NECK: Normal range of motion, supple without lymphadenopathy or JVD, no thyromegaly LUNGS: Breath sounds show bilateral rhonchi and worse at the left upper lung field, but also present on the right side HEART: Regular rate and rhythm without murmurs, rubs or gallops.S1S2 Normal ABDOMEN: Soft, nontender, normoactive bowel sounds. No guarding, no rebound. No masses appreciated. He is distended due to truncal obesity. EXTREMITIES: Normal range of motion, no pitting or edema. No clubbing or cyanosis. NEUROLOGICAL: Cranial nerves II through XII grossly intact. Normal speech, normal gait. PSYCH: Normal mood, normal affect. SKIN: Warm, Dry, normal turgor, no rashes or lesions noted. Results CBC & Chem 7: 07/28/21 00:48 07/28/21 00:48 Labs: Abnormal Lab Results - Last 24 Hours (Table) 07/28/21 07/28/21 Range/Units 00:48 00:48 Lymphocytes # 0.7 L (1.0-4.8) k/uL Sodium 134 L (137-145) mmol/L Glucose 158 H (74-99) mg/dL Calcium 8.2 L (8.4-10.2) mg/dL Chest x-ray: report reviewed Thrombosis Risk Factor Assmnt - DVT/VTE Prophylaxis DVT/VTE Prophylaxis: Pharmacologic Prophylaxis ordered - Choose All That Apply Any of the Below Risk Factors Present?: No Other Risk Factors: Yes Each Risk Factor Represents 2 Points: Age 61-74 years Other congenital or acquired thrombophilia - If yes, enter type in comment: No Thrombosis Risk Factor Assessment Total Risk Factor Score: 2 Thrombosis Risk Factor Assessment Level: Low Risk Assessment and Plan (1) Essential (primary) hypertension Current Visit: Yes Status: Acute Code(s): I10 - ESSENTIAL (PRIMARY) HYPERTENSION SNOMED Code(s): 33691155 (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 Current Visit: Yes Status: Acute Code(s): Z79.891 - 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 OF OPIATE ANALGESIC SNOMED Code(s): 513204359 (3) CAD (coronary artery disease) Current Visit: Yes Status: Acute Code(s): I25.10 - ATHSCL HEART DISEASE OF [place] CORONARY ARTERY W/O ANG PCTRS SNOMED Code(s): 37918931 (4) Chronic systolic (congestive) heart failure Current Visit: Yes Status: Acute Code(s): I50.22 - CHRONIC SYSTOLIC (CONGESTIVE) HEART FAILURE SNOMED Code(s): 997242112 (5) COVID-19 Current Visit: Yes Status: Acute Code(s): U07.1 - COVID-19 SNOMED Code(s): 935858164 (6) Pneumonia Current Visit: Yes Status: Acute Code(s): J18.9 - PNEUMONIA, UNSPECIFIED ORGANISM SNOMED Code(s): 631543228 (7) Daily consumption of alcohol Current Visit: No Status: Acute Code(s): Z78.9 - OTHER SPECIFIED HEALTH STATUS SNOMED Code(s): 603692759 (8) Former smoker Current Visit: No Status: Acute Code(s): Z87.891 - PERSONAL HISTORY OF NICOTINE DEPENDENCE SNOMED Code(s): 3640061 (9) Shortness of breath at rest Current Visit: No Status: Acute Code(s): R06.02 - SHORTNESS OF BREATH SNOMED Code(s): 930291360 Plan: Start the patient on COVID protocol. 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 He'll be in isolation precautions. Instrumentation anticoagulation. Repeat labs in a.m. and then per protocol He'll be reevaluated in the next 24 hours.
[2021-07-28] MEDS: ALBUTEROL HFA INHALER INHALATION PRN ×2 (11:31→20:00)
[2021-07-28] MEDS: FUROSEMIDE 40 MG TAB PO SCH (12:33)
[2021-07-28] MEDS: carvediloL 12.5 MG TAB PO SCH ×2 (12:33→19:53)
[2021-07-28] MEDS: ASPIRIN 81 MG PO SCH ×2 (12:34→19:53)
[2021-07-28] MEDS: ENOXAPARIN 30 MG/0.3 ML SYRINGE SQ SCH (12:34)
[2021-07-28] MEDS: busPIRone HCl 5 MG TAB PO SCH ×2 (12:34→19:54)
[2021-07-28] MEDS: LOSARTAN 25 MG TAB PO SCH (12:34)
[2021-07-28] MEDS: POTASSIUM CHLORIDE ER 20 MEQ TAB.ER PO SCH (12:35)
[2021-07-28] MEDS: HYDROcodone/APAP 10-325MG 1 EACH TAB PO PRN (14:06)
[2021-07-28] MEDS: ALPRAZolam 0.25 MG TAB PO PRN (16:27)
--- NOTE | 2021-07-28 17:25 | P.CNPUL ---
History of Present Illness Consult date: 07/28/21 Requesting physician: Elio Foley Reason for consult: dyspnea, hypoxemia, abnormal CXR/CT Chief complaint: Shortness of breath History of present illness: This is 65-year-old male patient who has a history of hyperlipidemia, hypertension, anxiety, PTSD. He developed symptoms of increasing shortness of breath cough and congestion headache fever chills approximately 4 days ago. He tested positive for COVID-19 and received monoclonal antibodies by [facility]. He presented to the emergency room early this morning with worsening symptoms. The patient is not vaccinated. Chest x-ray shows bilateral patchy opacities consistent with COVID-19 pneumonia. White count 5.8. Hemoglobin 15.3. Lymphocytes 0.7. D-dimer 0.33. Sodium 134. Potassium 4.4. Creatinine 0.84. AST 56,. ALT 34. Troponins negative 3. ProBNP 54. He's been initiated on Decadron, Lovenox, vitamin supplements. He is seen today in consultation on the regular medical floor. He is already on by mouth liters high flow nasal cannula plus a nonrebreather mask. He is afebrile. Hemodynamically stable. Dyspneic with minimal conversation. Dyspneic with minimal exertion. Review of Systems REVIEW OF SYSTEMS: CONSTITUTIONAL: Denies any recent significant weight loss or weight gain. EYES: Denies change in vision. EARS, NOSE, MOUTH, THROAT: Positive for headaches, denies sore throat. CARDIOVASCULAR: Denies chest pain, palpitations or syncopal episodes. RESPIRATORY: Consistent of 4 shortness of breath, cough, congestion no hemoptysis. GASTROINTESTINAL: Denies change in appetite, denies abdominal pain GENITOURINARY: Denies hematuria, denies infections. MUSKULOSKELETAL: Denies pain, denies swelling. INTEGUMENTARY: Denies rash, denies eczema. NEUROLOGICAL: Denies recent memory loss, no recent seizure activity. PSYCHIATRIC: Denies anxiety, denies depression. HEMATOLOGIC/LYMPHATIC: Denies anemia, denies enlarged lymph nodes. Past Medical History Past Medical History: Chest Pain / Angina, Heart Failure, Hyperlipidemia, Hypertension Additional Past Medical History / Comment(s): DJD chronic back pain, History of Any Multi-Drug Resistant Organisms: None Reported Past Surgical History: Cholecystectomy Additional Past Surgical History / Comment(s): knee surgery at the age of 21 Past Anesthesia/Blood Transfusion Reactions: No Reported Reaction Past Psychological History: Anxiety, PTSD Smoking Status: Never smoker Past Alcohol Use History: None Reported Additional Past Alcohol Use History / Comment(s): states has not had a beer since June 2020 Past Drug Use History: Marijuana Additional Drug Use History / Comment(s): current - Past Family History Brother(s) Family Medical History: Coronary Artery Disease (CAD) Additional Family Medical History / Comment(s): 2 boys with a CABG Mother Family Medical History: Myocardial Infarction ([place]) Additional Family Medical History / Comment(s): mom passed from a [place] Medications and Allergies Home Medications Medication Instructions Recorded Confirmed Type Aspirin EC [Ecotrin Low Dose] 81 mg PO BID 06/22/20 07/28/21 History Atorvastatin [Lipitor] 40 mg PO AC-SUPPER 06/22/20 07/28/21 History Cyclobenzaprine [Flexeril] 10 mg PO TID PRN 06/22/20 07/28/21 History HYDROcodone/APAP 10-325MG [[place] 1 tab PO Q8HR PRN 06/22/20 07/28/21 History 10-325] Carvedilol [Coreg] 12.5 mg PO AC-BID 11/05/20 07/28/21 History Furosemide [Lasix] 40 mg PO DAILY 11/05/20 07/28/21 History Losartan [Cozaar] 25 mg PO DAILY 11/05/20 07/28/21 History Potassium Chloride [Klor-Con 20] 20 meq PO DAILY 11/05/20 07/28/21 History Colchicine [Colcrys] 0.6 mg PO BID 07/28/21 07/28/21 History Dexamethasone 6 mg PO BID 07/28/21 07/28/21 History busPIRone HCL [Buspar] 7.5 mg PO BID 07/28/21 07/28/21 History Allergies Allergy/AdvReac Type Severity Reaction Status Date / Time No Known Allergies Allergy Verified 07/28/21 08:01 Physical Exam Vitals: Vital Signs Temp Pulse Pulse Resp BP BP Pulse Ox 07/28/21 15:22 98.7 F 74 17 120/80 97 07/28/21 10:45 93 L 07/28/21 09:52 98.4 F 81 18 116/72 93 L 07/28/21 05:28 21 07/28/21 05:16 98.7 F 73 125/79 95 07/28/21 05:09 95 07/28/21 03:48 72 20 126/84 95 07/28/21 01:01 69 22 125/73 94 L 07/28/21 00:31 68 22 93 L 07/28/21 00:00 98.5 F 74 24 127/79 84 L Intake and Output 07/28/21 07/28/21 07/28/21 06:59 14:59 22:59 Output Total 400 Balance -400 Output: Urine 400 Other: Voiding Method Urinal Weight 106.594 kg GENERAL EXAM: Alert, 65-year-old male patient, 15 L high flow nasal cannula plus a nonrebreather mask, fairly comfortable in no respiratory distress distress. HEAD: Normocephalic. EYES: Normal reaction of pupils, equal size. NOSE: Clear with pink turbinates. THROAT: No erythema or exudates. NECK: No masses, no JVD. CHEST: No chest wall deformity. LUNGS: Equal air entry with bibasilar crackles. CVS: S1 and S2 normal with no audible murmur, regular rhythm. ABDOMEN: No hepatosplenomegaly, normal bowel sounds, no guarding or rigidity. SPINE: No scoliosis or deformity SKIN: No rashes CENTRAL NERVOUS SYSTEM: No focal deficits, tone is normal in all 4 extremities. EXTREMITIES: There is no peripheral edema. No clubbing, no cyanosis. Peripheral pulses are intact. Results - Laboratory Findings CBC and BMP: 07/28/21 00:48 07/28/21 00:48 PT/INR, D-dimer PT 10.1 sec (9.0-12.0) 07/28/21 00:48 INR 0.9 (<1.2) 07/28/21 00:48 D-Dimer 0.33 mg/L FEU (<0.60) 07/28/21 00:48 Abnormal lab findings: Abnormal Labs 07/28/21 07/28/21 00:48 00:48 Lymphocytes # 0.7 L Sodium 134 L Glucose 158 H Calcium 8.2 L - Diagnostic Findings Chest x-ray: image reviewed Assessment and Plan Assessment: 1 Acute hypoxemic respiratory failure secondary to COVID-19 pneumonia. Symptoms started on 07/24/2021. He did receive monoclonal antibodies. The patient is n ot vaccinated. Currently on 15 L high flow nasal cannula + nonrebreather mask. We'll check a pro-calcitonin. He will be initiated on Baricitinib. 2 Hypertension 3 Chronic systolic congestive heart failure 4 Coronary artery disease 5 Daily alcohol use 6 Hyperlipidemia 7 History of anxiety/PTSD A History of marijuana use Plan: Chest x-ray and labs reviewed Continue Decadron, Lovenox, vitamin supplements Check a pro-calcitonin Initiate Baricitinib Follow-up chest x-ray and labs in the a.m. Prognosis is guarded We will continue to follow and make further recommendations based on his cl inical status I, the cosigning physician, performed a history & physical examination of the patient. Lungs sounds basilar crackles. Maintaining O2 saturations in the 90s on 15 L high flow cannula + nonrebreather mask. I discussed the assessment and plan of care with my nurse practitioner, Silvana Guerrero. I attest to the above consultation as dictated by her. Time with Patient: Greater than 30
[2021-07-28 18:51] LABS: C Reactive Protein 4.3 mg/dL (<1.0)
[2021-07-28] MEDS: ATORVASTATIN 40 MG TAB PO SCH (19:53)
[2021-07-28] MEDS: BARICITINIB 2 MG TABLET PO SCH (20:06)
[2021-07-29] MEDS: ALPRAZolam 0.25 MG TAB PO PRN ×2 (02:03→17:14)
[2021-07-29 06:39] LABS: Basophils % (A) 0 %; Eosinophils % (A) 0 %; HCT 42.8 % (39.0-53.0); HGB 14.4 gm/dL (13.0-17.5); Lymphocytes % (A) 9 %; MCHC 33.7 g/dL (31.0-37.0); MCV 98.1 fL (80.0-100.0); Mean Platelet Volume 7.5; Monocytes # (A) 0.3 k/uL (0-1.0); Monocytes % (A) 3 %; Neutrophils # (A) 9.4 k/uL (1.3-7.7); Neutrophils % (A) 87 %; Platelet Count 259 k/uL (150-450); RBC 4.36 m/uL (4.30-5.90); RDW 12.9 % (11.5-15.5); WBC 10.7 k/uL (3.8-10.6)
[2021-07-29 06:55] LABS: ALT 27 U/L (4-49); AST 38 U/L (17-59); African American GFR (CKD) >90 (>60 ml/min/1.73 sqM); Albumin 3.2 g/dL (3.5-5.0); Albumin/Globulin Ratio 1.1; Alkaline Phosphatase 66 U/L (38-126); Anion Gap 4 mmol/L; Blood Urea Nitrogen 14 mg/dL (9-20); Calcium 8.1 mg/dL (8.4-10.2); Carbon Dioxide 27 mmol/L (22-30); Chloride 106 mmol/L (98-107); Globulin 2.8 g/dL; Glucose 157 mg/dL (74-99); Non-African American GFR(CKD) >90 (>60 ml/min/1.73 sqM); Potassium 4.2 mmol/L (3.5-5.1); Sodium 137 mmol/L (137-145); Total Bilirubin 0.6 mg/dL (0.2-1.3)
[2021-07-29] MEDS: ALBUTEROL HFA INHALER INHALATION PRN ×3 (07:14→19:50)
[2021-07-29] MEDS: busPIRone HCl 5 MG TAB PO SCH ×2 (08:06→20:08)
[2021-07-29] MEDS: SODIUM CHLORIDE 0.9% 1,000 ML IV SCH ×2 (08:06→20:08)
[2021-07-29] MEDS: ENOXAPARIN 30 MG/0.3 ML SYRINGE SQ SCH (08:07)
[2021-07-29] MEDS: LOSARTAN 25 MG TAB PO SCH (08:07)
[2021-07-29] MEDS: ASPIRIN 81 MG PO SCH ×2 (08:07→20:08)
[2021-07-29] MEDS: FUROSEMIDE 40 MG TAB PO SCH (08:07)
[2021-07-29] MEDS: POTASSIUM CHLORIDE ER 20 MEQ TAB.ER PO SCH (08:07)
[2021-07-29] MEDS: carvediloL 12.5 MG TAB PO SCH ×2 (08:07→17:14)
[2021-07-29] MEDS: FAMOTIDINE 20 MG TAB PO SCH ×2 (08:07→20:09)
[2021-07-29] MEDS: DEXAMETHASONE SOD PHOSPHATE 10 MG/ML 1 ML VIAL IVP SCH (08:07)
--- NOTE | 2021-07-29 11:35 | P.PN ---
Subjective This is a 65-year-old male well-known to me. He had been and getting sick last Friday. He was tested for COVID-19 and was positive. Unfortunately this patient is not vaccinated. He did receive monoclonal antibody infusion. On Friday he was initiated on Decadron and colchicine due to a obesity, history of smoking and chronic pain. He presented to the emergency room and [facility] and was found to 19 pneumonia on chest x-ray. KUB due to increased shortness of breath. He was found to have a pulse oximetry of 84 in the emergency room. He is currently on a 50% nonrebreather. His pulse oximeter is improved, but he does continue to short of breath this level. Initial laboratory studies were essentially normal. Diabetes 5 Hemoglobin 53. There Is No Significant Shift. 07/29/2021: Patient is slightly improved this morning. He is on nasal cannula high flow to 15 L/m. He is not really needing the nonrebreather. Pulmonology consult was reviewed. He is been started on Olumiant. Vital signs remained stable. His most recent pulse oximetry is 91%. Heart rate regular respiratory rate 18 and 20. She remains afebrile. Laboratory studies show a leukocytosis at 10.7 today with a neutrophil left shift at 9.4. Chemistries are essentially normal. CRP was 4.3 lactate dehydrogenase is 1389. Troponin 3 was negative. Pro-calcitonin is normal 0.07. Patient remains on albuterol HFA every 6 hours as needed. Xanax as started for anxiety. He remains on atorvastatin carvedilol, losartan, cyclobenzaprine. He is anticoagulated with Lovenox. He is on dexamethasone, Olumiant. Overall he indicates he feels about the same. He feels short of breath than he activity. He is minimally short of breath at rest. He denies any nausea or vomiting. He denies having any significant appetite. Objective - Vital Signs Vital signs: Vital Signs Temp 97.3 F L 07/29/21 09:43 Pulse 66 07/29/21 09:43 Resp 18 07/29/21 09:43 BP 111/71 07/29/21 09:43 Pulse Ox 91 L 07/29/21 09:43 Intake & Output 07/28/21 07/29/21 07/29/21 18:59 06:59 18:59 Intake Total 1290 Output Total 1200 625 Balance 1290 -1200 -625 Intake: Intake, IV Titration 750 Amount Sodium Chloride 0.9% 1, 750 000 ml @ 75 mls/hr IV . [id number] [facility] Rx#:[id number] Oral 540 Output: Urine 1200 625 Other: Voiding Method Urinal Urinal Urinal # Voids 3 2 - Exam GENERAL EXAM: Alert, 65-year-old male patient, 15 L high flow nasal cannula in no respiratory distress distress. NECK: No masses, no JVD. CHEST: No chest wall deformity. LUNGS: Equal air entry with bibasilar crackles. CVS: S1 and S2 normal with no audible murmur, regular rhythm. ABDOMEN: No hepatosplenomegaly, normal bowel sounds, no guarding or rigidity. SKIN: No rashes CENTRAL NERVOUS SYSTEM: No focal deficits, tone is normal in all 4 extremities. EXTREMITIES: There is no peripheral edema. No clubbing, no cyanosis. Peripheral pulses are intact. - Labs CBC & Chem 7: 07/29/21 06:21 07/29/21 06:21 Labs: Abnormal Lab Results - Last 24 Hours (Table) 07/28/21 07/29/21 07/29/21 Range/Units 16:20 06:21 06:21 WBC 10.7 H (3.8-10.6) k/uL Neutrophils # 9.4 H (1.3-7.7) k/uL Glucose 157 H (74-99) mg/dL Calcium 8.1 L (8.4-10.2) mg/dL Lactate Dehydrogenase 1389 H (313-618) U/L C-Reactive Protein 4.3 H (<1.0) mg/dL Total Protein 6.0 L (6.3-8.2) g/dL Albumin 3.2 L (3.5-5.0) g/dL Assessment and Plan (1) Pneumonia Current Visit: Yes Status: Acute Code(s): J18.9 - PNEUMONIA, UNSPECIFIED ORGANISM SNOMED Code(s): 087387265 (2) COVID-19 Current Visit: Yes Status: Acute Code(s): U07.1 - COVID-19 SNOMED Code(s): 927718757 (3) Essential (primary) hypertension Current Visit: Yes Status: Acute Code(s): I10 - ESSENTIAL (PRIMARY) HYPERTENSION SNOMED Code(s): 76811637 (4) 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 Current Visit: Yes Status: Acute Code(s): Z79.891 - 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 SNOMED Code(s): 112249616 (5) CAD (coronary artery disease) Current Visit: Yes Status: Acute Code(s): I25.10 - ATHSCL HEART DISEASE OF [place] CORONARY ARTERY W/O ANG PCTRS SNOMED Code(s): 08533158 (6) Chronic systolic (congestive) heart failure Current Visit: Yes Status: Acute Code(s): I50.22 - CHRONIC SYSTOLIC (CONGESTIVE) HEART FAILURE SNOMED Code(s): 292810991 (7) Daily consumption of alcohol Current Visit: No Status: Acute Code(s): Z78.9 - OTHER SPECIFIED HEALTH STATUS SNOMED Code(s): 726276868 (8) Former smoker Current Visit: No Status: Acute Code(s): Z87.891 - PERSONAL HISTORY OF NICOTINE DEPENDENCE SNOMED Code(s): 7418147 (9) Shortness of breath at rest Current Visit: No Status: Acute Code(s): R06.02 - SHORTNESS OF BREATH SNOMED Code(s): 970603401 Plan: Start the patient on COVID protocol. Waiting on Further recreations pulmonology He'll be in isolation precautions. Continue anticoagulation. Continue home medication Repeat labs per protocol He'll be reevaluated in the next 24 hours.
[2021-07-29] MEDS: ZINC SULFATE 220 MG CAP PO SCH (12:00)
[2021-07-29] MEDS: ASCORBIC ACID 500 MG TAB PO SCH (12:00)
--- NOTE | 2021-07-29 14:10 | P.PN ---
Subjective Progress Note Date: 07/29/21 Principal diagnosis: Shortness of breath, hypoxia, COVID 19 This is 65-year-old male patient who has a history of hyperlipidemia, hypertension, anxiety, PTSD. He developed symptoms of increasing shortness of breath cough and congestion headache fever chills approximately 4 days ago. He tested positive for COVID-19 and received monoclonal antibodies by [facility]. He presented to the emergency room early this morning with worsening symptoms. The patient is not vaccinated. Chest x-ray shows bilateral patchy opacities consistent with COVID-19 pneumonia. White count 5.8. Hemoglobin 15.3. Lymphocytes 0.7. D-dimer 0.33. Sodium 134. Potassium 4.4. Creatinine 0.84. AST 56,. ALT 34. Troponins negative 3. ProBNP 54. He's been initiated on Decadron, Lovenox, vitamin supplements. He is seen today in consultation on the regular medical floor. He is already on by mouth liters high flow nasal cannula plus a nonrebreather mask. He is afebrile. Hemodynam ically stable. Dyspneic with minimal conversation. Dyspneic with minimal exertion. On 07/29/2021 patient seen in follow-up on medical surgical floor, he is currently on 15 L per high flow nasal cannula his pulse ox is 87-91%, he is afebrile, hemodynamically stable, patient has been repositioning self and then, on his left side right side, and he states he did try some prone positioning briefly.He was started on Baricitinib yesterday and he is on Decadron 6 mg daily in addition to prophylactic Lovenox. Today's labs have been reviewed, his white blood cell count is 10.7, hemoglobin is 14.4, he is actually excellent renal profile are within normal limits, he is d-dimer on admission was negative at 0.33. LDH and CRP levels are still pending, pro-calcitonin level was negative at 0.07. Objective - Vital Signs Vital signs: Vital Signs Temp 98.3 F 07/29/21 13:22 Pulse 75 07/29/21 13:22 Resp 18 07/29/21 13:22 BP 112/73 07/29/21 13:22 Pulse Ox 87 L 07/29/21 13:22 Intake & Output 07/28/21 07/29/21 07/29/21 18:59 06:59 18:59 Intake Total 1290 Output Total 1200 625 Balance 1290 -1200 -625 Intake: Intake, IV Titration 750 Amount Sodium Chloride 0.9% 1, 750 000 ml @ 75 mls/hr IV . [id number] [facility] Rx#:[id number] Oral 540 Output: Urine 1200 625 Other: Voiding Method Urinal Urinal Urinal # Voids 3 2 - Exam GENERAL EXAM: Alert, very pleasant, 65-year-old white male, on 15 L per high flow nasal cannula with pulse ox of 87-91% comfortable in no apparent distress. HEAD: Normocephalic/atraumatic. EYES: Normal reaction of pupils, equal size. Conjunctiva pink, sclera white. NOSE: Clear with pink turbinates. THROAT: No erythema or exudates. NECK: No masses, no JVD, no thyroid enlargement, no adenopathy. CHEST: No chest wall deformity. Symmetrical expansion. LUNGS: Equal air entry with fine rales bilaterally CVS: Regular rate and rhythm, normal S1 and S2, no gallops, no murmurs, no rubs ABDOMEN: Soft, nontender. No hepatosplenomegaly, normal bowel sounds, no guarding or rigidity. EXTREMITIES: No clubbing, no edema, no cyanosis, 2+ pulses and upper and lower extremities. MUSCULOSKELETAL: Muscle strength and tone normal. SPINE: No scoliosis or deformity SKIN: No rashes CENTRAL NERVOUS SYSTEM: Alert and oriented -3. No focal deficits, tone is normal in all 4 extremities. PSYCHIATRIC: Alert and oriented -3. Appropriate affect. Intact judgment and insight. - Labs CBC & Chem 7: 07/29/21 06:21 07/29/21 06:21 Labs: Abnormal Lab Results - Last 24 Hours (Table) 07/28/21 07/29/21 07/29/21 Range/Units 16:20 06:21 06:21 WBC 10.7 H (3.8-10.6) k/uL Neutrophils # 9.4 H (1.3-7.7) k/uL Glucose 157 H (74-99) mg/dL Calcium 8.1 L (8.4-10.2) mg/dL Lactate Dehydrogenase 1389 H (313-618) U/L C-Reactive Protein 4.3 H (<1.0) mg/dL Total Protein 6.0 L (6.3-8.2) g/dL Albumin 3.2 L (3.5-5.0) g/dL Assessment and Plan Plan: Assessment: #1. Acute hypoxic respiratory failure is suspected to COVID-19 pneumonia, patient presented with 5 day history of symptom onset on 07/24/2021. He status post monoclonal antibody infusion. Patient isn't nonvaccinated adult against COVID-19. Currently on 15 L high flow nasal cannula and nonrebreather mask, started on Baricitinib on 07/28/2021 #2. Chronic systolic CHF #3. Hypertension #4. History of coronary artery disease #5. Hyperlipidemia #6. Chronic back pain #7. History of EtOH use, in remission #8. History of anxiety and PTSD #9. Nonsmoker Plan: We will obtain follow-up d-dimer, inflammatory markers for tomorrow Continue Baricitinib Continue Lovenox, continue Decadron We will adjust Lovenox to 40 mg daily We'll continue to follow his clinical course Encouraged the patient to reposition self in bed, self prone if able twice a day from 30 minutes to 4 hours daily I performed a history & physical examination of the patient and discussed their management with my nurse practitioner, Katie Snider. I reviewed the nurse practitioner's note and agree with the documented findings and plan of care. Lung sounds are positive for scattered rales throughout the lung palacio. The findings and the impression was discussed with the patient. I attest to the documentation by the nurse practitioner. Time with Patient: Less than 30
[2021-07-29] MEDS: ATORVASTATIN 40 MG TAB PO SCH (17:14)
[2021-07-29] MEDS: BARICITINIB 2 MG TABLET PO SCH (20:08)
[2021-07-29] MEDS: MELATONIN 5 MG TABLET PO PRN (23:38)
[2021-07-30] MEDS: ALPRAZolam 0.25 MG TAB PO PRN ×2 (00:52→19:39)
[2021-07-30] MEDS: ALBUTEROL HFA INHALER INHALATION PRN (01:14)
[2021-07-30 06:24] LABS: Basophils % (A) 0 %; Eosinophils % (A) 0 %; HCT 44.3 % (39.0-53.0); HGB 14.6 gm/dL (13.0-17.5); Lymphocytes # (A) 0.9 k/uL (1.0-4.8); Lymphocytes % (A) 7 %; MCH 33.2 pg (25.0-35.0); MCV 100.6 fL (80.0-100.0); Mean Platelet Volume 7.2; Monocytes # (A) 0.3 k/uL (0-1.0); Monocytes % (A) 2 %; Neutrophils # (A) 11.6 k/uL (1.3-7.7); Neutrophils % (A) 90 %; Platelet Count 369 k/uL (150-450); RBC 4.41 m/uL (4.30-5.90); RDW 13.6 % (11.5-15.5); WBC 12.9 k/uL (3.8-10.6)
[2021-07-30 06:38] LABS: INR 0.9 (<1.2); Partial Thromboplastin Time 24.2 sec (22.0-30.0); Prothrombin Time 9.9 sec (9.0-12.0)
[2021-07-30 06:46] LABS: ALT 29 U/L (4-49); AST 41 U/L (17-59); African American GFR (CKD) >90 (>60 ml/min/1.73 sqM); Albumin 3.4 g/dL (3.5-5.0); Albumin/Globulin Ratio 1.3; Alkaline Phosphatase 73 U/L (38-126); Anion Gap 9 mmol/L; Blood Urea Nitrogen 19 mg/dL (9-20); C Reactive Protein 6.5 mg/dL (<1.0); Calcium 8.2 mg/dL (8.4-10.2); Carbon Dioxide 26 mmol/L (22-30); Chloride 106 mmol/L (98-107); Globulin 2.7 g/dL; Glucose 149 mg/dL (74-99); LDH 1634 U/L (313-618); Magnesium 2.5 mg/dL (1.6-2.3); Non-African American GFR(CKD) >90 (>60 ml/min/1.73 sqM); Sodium 141 mmol/L (137-145); Total Bilirubin 0.7 mg/dL (0.2-1.3); Total Protein 6.1 g/dL (6.3-8.2)
[2021-07-30] MEDS: HYDROcodone/APAP 10-325MG 1 EACH TAB PO PRN ×2 (07:48→19:39)
[2021-07-30] MEDS: busPIRone HCl 5 MG TAB PO SCH ×2 (07:50→19:38)
[2021-07-30] MEDS: LOSARTAN 25 MG TAB PO SCH (07:51)
[2021-07-30] MEDS: ZINC SULFATE 220 MG CAP PO SCH (07:51)
[2021-07-30] MEDS: POTASSIUM CHLORIDE ER 20 MEQ TAB.ER PO SCH (07:51)
[2021-07-30] MEDS: FUROSEMIDE 40 MG TAB PO SCH (07:51)
[2021-07-30] MEDS: ASCORBIC ACID 500 MG TAB PO SCH (07:51)
[2021-07-30] MEDS: CHOLECALCIFEROL 25 MCG (1000 IU) TABLET PO SCH (07:51)
[2021-07-30] MEDS: FAMOTIDINE 20 MG TAB PO SCH ×2 (07:51→19:38)
[2021-07-30] MEDS: carvediloL 12.5 MG TAB PO SCH ×2 (07:51→17:23)
[2021-07-30] MEDS: ASPIRIN 81 MG PO SCH ×2 (07:51→19:38)
[2021-07-30] MEDS: DEXAMETHASONE SOD PHOSPHATE 10 MG/ML 1 ML VIAL IVP SCH (07:51)
[2021-07-30] MEDS: ENOXAPARIN 40 MG/0.4 ML SYRINGE SQ SCH (07:52)
[2021-07-30] MEDS: SODIUM CHLORIDE 0.9% 1,000 ML IV SCH ×2 (07:52→19:42)
--- NOTE | 2021-07-30 15:09 | P.PN ---
Subjective Progress Note Date: 07/30/21 Principal diagnosis: Shortness of breath, hypoxia, COVID 19 This is 65-year-old male patient who has a history of hyperlipidemia, hypertension, anxiety, PTSD. He developed symptoms of increasing shortness of breath cough and congestion headache fever chills approximately 4 days ago. He tested positive for COVID-19 and received monoclonal antibodies by [facility]. He presented to the emergency room early this morning with worsening symptoms. The patient is not vaccinated. Chest x-ray shows bilateral patchy opacities consistent with COVID-19 pneumonia. White count 5.8. Hemoglobin 15.3. Lymphocytes 0.7. D-dimer 0.33. Sodium 134. Potassium 4.4. Creatinine 0.84. AST 56,. ALT 34. Troponins negative 3. ProBNP 54. He's been initiated on Decadron, Lovenox, vitamin supplements. He is seen today in consultation on the regular medical floor. He is already on by mouth liters high flow nasal cannula plus a nonrebreather mask. He is afebrile. Hemodynam ically stable. Dyspneic with minimal conversation. Dyspneic with minimal exertion. On 07/29/2021 patient seen in follow-up on medical surgical floor, he is currently on 15 L per high flow nasal cannula his pulse ox is 87-91%, he is afebrile, hemodynamically stable, patient has been repositioning self and then, on his left side right side, and he states he did try some prone positioning briefly.He was started on Baricitinib yesterday and he is on Decadron 6 mg daily in addition to prophylactic Lovenox. Today's labs have been reviewed, his white blood cell count is 10.7, hemoglobin is 14.4, he is actually excellent renal profile are within normal limits, he is d-dimer on admission was negative at 0.33. LDH and CRP levels are still pending, pro-calcitonin level was negative at 0.07. On 07/30/2021 patient is seen in follow-up on medical surgical floor, he remains on high flow oxygen with 15 L high flow nasal cannula and 100% nonrebreather mask, and his pulse ox of 92-94%, and in a patient was confused, and agitated at times, he was removing his oxygen desaturating, safety inspector is outside the door, doing supervision. Patient is breathing fairly comfortably, he feels like his breathing is a little easier today, has occasional cough, at times she is able to bring up some yellow and green colored phlegm, no fever or chills, he was started on Baricitinib on 07/28/2021, he is also on Decadron 6 mg daily, and Lovenox 40 mg daily. Remains on IV fluids with 0.9 normal saline at a rate of 75 ML per hour, he is on COVID-19 vitamins. Labs reviewed, white blood cell count is 12.9, hemoglobin is 14.6, platelet count is 369, his d-dimer slightly increased and is currently at 0.60, electrolytes and renal profile are within normal limits. His LDH today is increased and is up to 1634, patient had 4 sets of negative troponin at less than 0.012, proBNP was 107, pro-calcitonin level was negative at 0.07 Objective - Vital Signs Vital signs: Vital Signs Temp 98.4 F 07/30/21 14:00 Pulse 71 07/30/21 14:00 Resp 21 07/30/21 14:00 BP 109/68 07/30/21 14:00 Pulse Ox 94 L 07/30/21 14:00 Intake & Output 07/29/21 07/30/21 07/30/21 18:59 06:59 18:59 Output Total 625 625 Balance -625 -625 Output: Urine 625 625 Other: Voiding Method Urinal Urinal Urinal # Voids 1 3 # Bowel Movements 1 1 - Exam GENERAL EXAM: Alert, very pleasant, 65-year-old white male, on 15 L per high flow nasal cannula and 100% nonrebreather mask with pulse ox of 92% comfortable in no apparent distress. HEAD: Normocephalic/atraumatic. EYES: Normal reaction of pupils, equal size. Conjunctiva pink, sclera white. NOSE: Clear with pink turbinates. THROAT: No erythema or exudates. NECK: No masses, no JVD, no thyroid enlargement, no adenopathy. CHEST: No chest wall deformity. Symmetrical expansion. LUNGS: Equal air entry with fine rales bilaterally CVS: Regular rate and rhythm, normal S1 and S2, no gallops, no murmurs, no rubs ABDOMEN: Soft, nontender. No hepatosplenomegaly, normal bowel sounds, no guarding or rigidity. EXTREMITIES: No clubbing, no edema, no cyanosis, 2+ pulses and upper and lower extremities. MUSCULOSKELETAL: Muscle strength and tone normal. SPINE: No scoliosis or deformity SKIN: No rashes CENTRAL NERVOUS SYSTEM: Alert and oriented -3. No focal deficits, tone is normal in all 4 extremities. PSYCHIATRIC: Alert and oriented -3. Appropriate affect. Intact judgment and insight. - Labs CBC & Chem 7: 07/30/21 05:47 07/30/21 05:47 Labs: Abnormal Lab Results - Last 24 Hours (Table) 07/30/21 07/30/21 07/30/21 Range/Units 05:47 05:47 05:47 WBC 12.9 H (3.8-10.6) k/uL MCV 100.6 H (80.0-100.0) fL Neutrophils # 11.6 H (1.3-7.7) k/uL Lymphocytes # 0.9 L (1.0-4.8) k/uL Fibrinogen 679 H (200-500) mg/dL D-Dimer 0.60 H (<0.60) mg/L FEU Glucose 149 H (74-99) mg/dL Calcium 8.2 L (8.4-10.2) mg/dL Magnesium 2.5 H (1.6-2.3) mg/dL Ferritin 969.0 H (22.0-322.0) ng/mL Lactate Dehydrogenase 1634 H (313-618) U/L C-Reactive Protein 6.5 H (<1.0) mg/dL Total Protein 6.1 L (6.3-8.2) g/dL Albumin 3.4 L (3.5-5.0) g/dL Assessment and Plan Plan: Assessment: #1. Acute hypoxic respiratory failure is suspected to COVID-19 pneumonia, patient presented with 5 day history of symptom onset on 07/24/2021. He status post monoclonal antibody infusion. Patient isn't nonvaccinated adult against COVID-19. Currently on 15 L high flow nasal cannula and nonrebreather mask, started on Baricitinib on 07/28/2021 #2. Chronic systolic CHF #3. Hypertension #4. History of coronary artery disease #5. Hyperlipidemia #6. Chronic back pain #7. History of EtOH use, in remission #8. History of anxiety and PTSD #9. Nonsmoker Plan: Continue Baricitinib Continue Lovenox, continue Decadron We will adjust Lovenox to 40 mg daily Patient on high flow oxygen with 15 L and 100% nonrebreather Follow-up chest x-ray tomorrow We'll continue to follow his clinical course Obtain lower extremity Dopplers to rule out possibility of DVT Encouraged the patient to reposition self in bed, self prone if able twice a day from 30 minutes to 4 hours daily I performed a history & physical examination of the patient and discussed their management with my nurse practitioner, Katie Snider. I reviewed the nurse practitioner's note and agree with the documented findings and plan of care. Lung sounds are positive for scattered rales throughout the lung palacio. The findings and the impression was discussed with the patient. I attest to the documentation by the nurse practitioner. Time with Patient: Less than 30
--- NOTE | 2021-07-30 15:30 | P.PN ---
Subjective Progress Note Date: 07/30/21 This is a 65-year-old male well-known to me. He had been and getting sick last Friday. He was tested for COVID-19 and was positive. Unfortunately this patient is not vaccinated. He did receive monoclonal antibody infusion. On Friday he was initiated on Decadron and colchicine due to a obesity, history of smoking and chronic pain. He presented to the emergency room and [facility] and was found to 19 pneumonia on chest x-ray. KUB due to increased shortness of breath. He was found to have a pulse oximetry of 84 in the emergency room. He is currently on a 50% nonrebreather. His pulse oximeter is improved, but he does continue to short of breath this level. Initial laboratory studies were essentially normal. Diabetes 5 Hemoglobin 53. There Is No Significant Shift. 07/30/2021 maintained on 15 L high flow nasal cannula and nonrebreather mask, maintaining O2 sats of 90-94%. Continues on Covid cocktail,Baricitinib. Pro- calcitonin negative. Requiring sitter at bedside to facilitate patient leaving his oxygen on. Renal function within normal limits. Inflammatory markers incr eased. Objective - Vital Signs Vital signs: Vital Signs Temp 98.4 F 07/30/21 14:00 Pulse 71 07/30/21 14:00 Resp 21 07/30/21 14:00 BP 109/68 07/30/21 14:00 Pulse Ox 94 L 07/30/21 14:00 Intake & Output 07/29/21 07/30/21 07/30/21 18:59 06:59 18:59 Output Total 625 625 Balance -625 -625 Output: Urine 625 625 Other: Voiding Method Urinal Urinal Urinal # Voids 1 3 # Bowel Movements 1 1 - Exam GENERAL: Fatigued thin male, in mild distress with nonrebreather in place. HEAD: Atraumatic, normocephalic. EYES: Pupils equal round and reactive to light, extraocular movements intact, sclera anicteric, conjunctiva are normal. NECK: Normal range of motion, supple without lymphadenopathy or JVD. LUNGS: Breath sounds show bilateral rhonchi, fine bibasilar crackles HEART: Regular rate and rhythm without murmurs, rubs or gallops.S1S2 Normal ABDOMEN: Soft, nontender, normoactive bowel sounds. No guarding, no rebound. No masses appreciated. He is distended due to truncal obesity. EXTREMITIES: Normal range of motion, no pitting or edema. No clubbing or cyanosis. NEUROLOGICAL: Cranial nerves II through XII grossly intact. Normal speech, normal gait. PSYCH: Normal mood, normal affect. SKIN: Warm, Dry, normal turgor, no rashes noted. - Labs CBC & Chem 7: 07/30/21 05:47 07/30/21 05:47 Labs: Abnormal Lab Results - Last 24 Hours (Table) 07/30/21 07/30/21 07/30/21 Range/Units 05:47 05:47 05:47 WBC 12.9 H (3.8-10.6) k/uL MCV 100.6 H (80.0-100.0) fL Neutrophils # 11.6 H (1.3-7.7) k/uL Lymphocytes # 0.9 L (1.0-4.8) k/uL Fibrinogen 679 H (200-500) mg/dL D-Dimer 0.60 H (<0.60) mg/L FEU Glucose 149 H (74-99) mg/dL Calcium 8.2 L (8.4-10.2) mg/dL Magnesium 2.5 H (1.6-2.3) mg/dL Ferritin 969.0 H (22.0-322.0) ng/mL Lactate Dehydrogenase 1634 H (313-618) U/L C-Reactive Protein 6.5 H (<1.0) mg/dL Total Protein 6.1 L (6.3-8.2) g/dL Albumin 3.4 L (3.5-5.0) g/dL Assessment and Plan Assessment: Acute COVID-19 pneumonia, status post monoclonal antibody infusion, un- vaccinated. Acute hypoxic respiratory failure Former nicotine dependence Daily alcohol consumption Essential hypertension Long-term use of opiate analgesic CAD Chronic congestive heart failure, systolic dysfunction Plan: Continue current medication regime ,monitoring and symptomatic treatment. Dopplers of lower extremities pending. Maintain covid cocktail. Follow closely with pulmonary. Gnosis guarded given multiple complex medical issues. The impression and plan of care has been dictated as directed. : I performed a history and examination of this patient, discussed the same with the dictator. I agree with the dictator's note ,documented as a scribe. Any additional findings or plans will be noted.
--- NOTE | 2021-07-30 15:54 | US ---
EXAMINATION TYPE: US venous doppler duplex LE DATE OF EXAM: 07/30/2021 3:48 PM COMPARISON: NONE CLINICAL HISTORY: elvated d-dimer. SOB SIDE PERFORMED: Bilateral TECHNIQUE: The lower extremity deep venous system is examined utilizing real time linear array sonog leann with graded compression, doppler sonography and color-flow sonography. VESSELS IMAGED: Common Femoral Vein Deep Femoral Vein Greater Saphenous Vein * Femoral Vein Popliteal Vein Small Saphenous Vein * Proximal Calf Veins (* superficial vessels) Right Leg: Negative for DVT Left Leg: Negative for DVT IMPRESSION: 1. Bilateral lower extremity ultrasound negative for deep venous thrombosis.
[2021-07-30] MEDS: ATORVASTATIN 40 MG TAB PO SCH (17:23)
[2021-07-30] MEDS: BARICITINIB 2 MG TABLET PO SCH (19:39)
[2021-07-31] MEDS: MELATONIN 5 MG TABLET PO PRN (02:09)
[2021-07-31] MEDS: CYCLOBENZAPRINE 10 MG TAB PO PRN ×2 (02:09→20:11)
[2021-07-31] MEDS: HYDROcodone/APAP 10-325MG 1 EACH TAB PO PRN ×2 (03:30→16:36)
[2021-07-31] MEDS: DEXAMETHASONE SOD PHOSPHATE 10 MG/ML 1 ML VIAL IVP SCH (07:25)
[2021-07-31] MEDS: ENOXAPARIN 40 MG/0.4 ML SYRINGE SQ SCH (07:25)
[2021-07-31] MEDS: busPIRone HCl 5 MG TAB PO SCH ×2 (07:26→20:11)
[2021-07-31] MEDS: CHOLECALCIFEROL 25 MCG (1000 IU) TABLET PO SCH (07:27)
[2021-07-31] MEDS: ZINC SULFATE 220 MG CAP PO SCH (07:27)
[2021-07-31] MEDS: FUROSEMIDE 40 MG TAB PO SCH (07:27)
[2021-07-31] MEDS: ASCORBIC ACID 500 MG TAB PO SCH (07:27)
[2021-07-31] MEDS: ASPIRIN 81 MG PO SCH ×2 (07:27→20:11)
[2021-07-31] MEDS: carvediloL 12.5 MG TAB PO SCH ×2 (07:27→16:36)
[2021-07-31] MEDS: LOSARTAN 25 MG TAB PO SCH (07:27)
[2021-07-31] MEDS: POTASSIUM CHLORIDE ER 20 MEQ TAB.ER PO SCH (07:31)
[2021-07-31] MEDS: FAMOTIDINE 20 MG TAB PO SCH ×2 (07:31→20:11)
--- NOTE | 2021-07-31 08:11 | XR ---
EXAMINATION TYPE: XR chest 1V portable DATE OF EXAM: 07/31/2021 COMPARISON: 07/28/2021 HISTORY: Cough TECHNIQUE: Single frontal view of the chest is obtained. FINDINGS: Bilateral infiltrate and small effusion. Limited inspiration. No pneumothorax. Heart size stable. Hypertrophic and degenerative change of the spine. Interstitial prominence stable. IMPRESSION: Interstitial and alveolar infiltrates with small effusions stable.
--- NOTE | 2021-07-31 12:38 | P.PN ---
Subjective Progress Note Date: 07/31/21 This is 65-year-old male patient who has a history of hyperlipidemia, hypertension, anxiety, PTSD. He developed symptoms of increasing shortness of breath cough and congestion headache fever chills approximately 4 days ago. He tested positive for COVID-19 and received monoclonal antibodies by [facility]. He presented to the emergency room early this morning with worsening symptoms. The patient is not vaccinated. Chest x-ray shows bilateral patchy opacities consistent with COVID-19 pneumonia. White count 5.8. Hemoglobin 15.3. Lymphocytes 0.7. D-dimer 0.33. Sodium 134. Potassium 4.4. Creatinine 0.84. AST 56,. ALT 34. Troponins negative 3. ProBNP 54. He's been initiated on Decadron, Lovenox, vitamin supplements. He is seen today in consultation on the regular medical floor. He is already on by mouth liters high flow nasal cannula plus a nonrebreather mask. He is afebrile. Hemodynamically stable. Dyspneic with minimal conversation. Dyspneic with minimal exertion. On 07/29/2021 patient seen in follow-up on medical surgical floor, he is currently on 15 L per high flow nasal cannula his pulse ox is 87-91%, he is afebrile, hemodynamically stable, patient has been repositioning self and then, on his left side right side, and he states he did try some prone positioning briefly.He was started on Baricitinib yesterday and he is on Decadron 6 mg daily in addition to prophylactic Lovenox. Today's labs have been reviewed, his white blood cell count is 10.7, hemoglobin is 14.4, he is actually excellent renal profile are within normal limits, he is d-dimer on admission was negative at 0.33. LDH and CRP levels are still pending, pro-calcitonin level was negative at 0.07. On 07/30/2021 patient is seen in follow-up on medical surgical floor, he remains on high flow oxygen with 15 L high flow nasal cannula and 100% nonrebreather mask, and his pulse ox of 92-94%, and in a patient was confused, and agitated at times, he was removing his oxygen desaturating, safety director is outside the door, doing supervision. Patient is breathing fairly comfortably, he feels like his breathing is a little easier today, has occasional cough, at times she is able to bring up some yellow and green colored phlegm, no fever or chills, he was started on Baricitinib on 07/28/2021, he is also on Decadron 6 mg daily, and Lovenox 40 mg daily. Remains on IV fluids with 0.9 normal saline at a rate of 75 ML per hour, he is on COVID-19 vitamins. Labs reviewed, white blood cell c ount is 12.9, hemoglobin is 14.6, platelet count is 369, his d-dimer slightly increased and is currently at 0.60, electrolytes and renal profile are within normal limits. His LDH today is increased and is up to 1634, patient had 4 sets of negative troponin at less than 0.012, proBNP was 107, pro-calcitonin level was negative at 0.07 The patient is seen today 07/31/2021 in follow-up on the regular medical floor. He is currently sitting up in bed. Awake and alert. He is doing about the same today compared to yesterday. No real improvement. He is still dyspneic with conversation. Dyspneic with minimal exertion. He was frequently pulling off his oxygen. A safety director is at the bedside. He was switched from AirVO high flow oxygen to 15 L high flow nasal cannula plus a nonrebreather mask. Saturations in the mid 90s. He is afebrile. He is continued on Baricitinib, Decadron, Lovenox, vitamin supplements. No follow-up labs today. Chest x-ray shows similar bilateral patchy opacities. Dopplers lower extremity negative for DVT. Objective - Vital Signs Vital signs: Vital Signs Temp 96.7 F L 07/31/21 09:48 Pulse 61 07/31/21 09:48 Resp 19 07/31/21 09:48 BP 149/91 07/31/21 09:48 Pulse Ox 95 07/31/21 09:48 Intake & Output 07/30/21 07/31/21 07/31/21 18:59 06:59 18:59 Weight 110 kg Other: Voiding Method Urinal Urinal Urinal # Voids 2 0 - Exam GENERAL EXAM: Alert, pleasant obese 65-year-old gentleman, on 15 L high flow nasal cannula plus a nonrebreather mask, fairly comfortable in no apparent distress. HEAD: Normocephalic. EYES: Normal reaction of pupils, equal size. NOSE: Clear with pink turbinates. THROAT: No erythema or exudates. NECK: No masses, no JVD. CHEST: No chest wall deformity. LUNGS: Equal air entry with coarse crackles in the bilateral bases. CVS: S1 and S2 normal with no audible murmur, regular rhythm. ABDOMEN: No hepatosplenomegaly, normal bowel sounds, no guarding or rigidity. SPINE: No scoliosis or deformity SKIN: No rashes CENTRAL NERVOUS SYSTEM: No focal deficits, tone is normal in all 4 extremities. EXTREMITIES: There is no peripheral edema. No clubbing, no cyanosis. Peripheral pulses are intact. - Labs CBC & Chem 7: 07/30/21 05:47 07/30/21 05:47 Assessment and Plan Assessment: 1 Acute hypoxemic respiratory failure secondary to COVID-19 pneumonia. Symptoms started on 07/24/2021. He did receive monoclonal antibodies. The patient is not vaccinated. Currently on 15 L high flow nasal cannula + nonrebreather mask. He was initiated on Baricitinib. 2 Hypertension 3 Chronic systolic congestive heart failure 4 Coronary artery disease 5 Daily alcohol use 6 Hyperlipidemia 7 History of anxiety/PTSD 8 History of marijuana use Plan: The patient was seen and evaluated Chest x-ray reviewed, no significant improvement Dopplers negative for DVT Continue Decadron, Lovenox, vitamin supplements Continue Baricitinib Follow-up labs in the a.m. Prognosis is guarded We will continue to follow and make further recommendations based on his clinical status I, the cosigning physician, performed a history & physical examination of the patient. Lungs sounds basilar crackles. Maintaining O2 saturations in the 90s on 15 L high flow cannula + nonrebreather mask. I discussed the assessment and plan of care with my nurse practitioner, Silvana Guerrero. I attest to the above note as dictated by her.
[2021-07-31] MEDS: ALPRAZolam 0.25 MG TAB PO PRN ×2 (15:08→22:37)
[2021-07-31] MEDS: ATORVASTATIN 40 MG TAB PO SCH (16:36)
--- NOTE | 2021-07-31 17:08 | P.PN ---
Subjective Progress Note Date: 07/31/21 This is a 65-year-old male well-known to me. He had been and getting sick last Friday. He was tested for COVID-19 and was positive. Unfortunately this patient is not vaccinated. He did receive monoclonal antibody infusion. On Friday he was initiated on Decadron and colchicine due to a obesity, history of smoking and chronic pain. He presented to the emergency room and [facility] and was found to 19 pneumonia on chest x-ray. KUB due to increased shortness of breath. He was found to have a pulse oximetry of 84 in the emergency room. He is currently on a 50% nonrebreather. His pulse oximeter is improved, but he does continue to short of breath this level. Initial laboratory studies were essentially normal. Diabetes 5 Hemoglobin 53. There Is No Significant Shift. 07/30/2021 maintained on 15 L high flow nasal cannula and nonrebreather mask, maintaining O2 sats of 90-94%. Continues on Covid cocktail,Baricitinib. Pro- calcitonin negative. Requiring sitter at bedside to facilitate patient leaving his oxygen on. Renal function within normal limits. Inflammatory markers incr eased. 07/31/2021 maintained on Covid cocktail, Baricitinib. continues on 15 L high flow nasal cannula/nonrebreather mask maintaining O2 sats in the 90s. Chest x- ray reporting interstitial and alveolar infiltrates with small effusions stable. Afebrile. Requiring product safety lead to remind patient from refraining to pull off his mask. Dopplers reported negative for bilateral lower extremities DVT. Objective - Vital Signs Vital signs: Vital Signs Temp 98.2 F 07/31/21 14:07 Pulse 71 07/31/21 14:07 Resp 19 07/31/21 14:07 BP 127/70 07/31/21 14:07 Pulse Ox 97 07/31/21 14:07 Intake & Output 07/30/21 07/31/21 07/31/21 18:59 06:59 18:59 Weight 110 kg Other: Voiding Method Urinal Urinal Urinal # Voids 2 0 - Exam GENERAL: Fatigued thin male, in mild distress with 15 L high flow nasal cannula/nonrebreather in place. HEAD: Atraumatic, normocephalic. EYES: Pupils equal round and reactive to light, extraocular movements intact, sclera anicteric, conjunctiva are normal. NECK: Normal range of motion, supple without lymphadenopathy or JVD. LUNGS: Breath sounds diminished with bibibasilar crackles HEART: Regular rate and rhythm without murmurs, rubs or gallops.S1S2 Normal ABDOMEN: Soft, nontender, normoactive bowel sounds. No guarding, no rebound. No masses appreciated. He is distended due to truncal obesity. EXTREMITIES: Normal range of motion, no pitting or edema. No clubbing or cyanosis. NEUROLOGICAL: Cranial nerves II through XII grossly intact. Normal speech, normal gait. PSYCH: Normal mood, normal affect. SKIN: Warm, Dry, normal turgor, no rashes noted. - Labs CBC & Chem 7: 07/30/21 05:47 07/30/21 05:47 Labs: Abnormal Lab Results - Last 24 Hours (Table) 07/30/21 Range/Units 15:58 Coronavirus (PCR) Detected A (Not Detected) Assessment and Plan Assessment: Acute COVID-19 pneumonia, status post monoclonal antibody infusion, un- vaccinated. Acute hypoxic respiratory failure Former nicotine dependence Daily alcohol consumption Essential hypertension Long-term use of opiate analgesic CAD Chronic congestive heart failure, systolic dysfunction Plan: Continue current medication regime ,monitoring and symptomatic treatment. Covid cocktail. Prognosis guarded given multiple complex medical issues. The impression and plan of care has been dictated as directed. : I performed a history and examination of this patient, discussed the same with the dictator. I agree with the dictator's note ,documented as a scribe. Any additional findings or plans will be noted.
[2021-07-31] MEDS: ALBUTEROL HFA INHALER INHALATION PRN (18:00)
[2021-07-31] MEDS: BARICITINIB 2 MG TABLET PO SCH (20:11)
[2021-07-31] MEDS: SODIUM CHLORIDE 0.9% 1,000 ML IV SCH (20:12)
[2021-07-31] MEDS ORDERED: HALOPERIDOL LACTATE 5 MG/ML 1 ML VIAL IM STA (22:50)
--- NOTE | 2021-08-01 01:37 | P.EN ---
A- team: Indication: Hypoxia, chest pain, leg pain Arrived on Scene to find: Patient on nonrebreather mask Vital signs reviewed: BP 155/92, SpO2 92% on nonrebreather mask, pulse 75 Patient seen and examined at bedside. The patient reports that his both legs have been hurting over the past 3-4 days, unchanged. She also reports intermittent pleuritic chest discomfort which she denied at the time of interview. General: [non toxic], [no acute distress], [appears older than stated age] Derm: [warm], [dry] Head: [atraumatic], [normocephalic], [symmetric] Eyes: [EOMI], [no lid lag], [anicteric sclera] Mouth: [no lip lesion], [mucus membranes moist] Cardiovascular: [S1S2 reg], [no murmur], [positive posterior tibial pulse bilateral], Lungs: Bilateral rhonchi, no wheezing, [no accessory muscle use] Abdominal: [soft], [ nontender to palpation], [no guarding] Ext: [no gross muscle atrophy], [no edema], [no contractures] Neuro: [no focal neuro deficits] Psych: [Somewhat confused], [oriented to person and place], [appropriate affect] Assessment: Acute hypoxic respiratory failure with COVID-19 pneumonia Plan: Continue with nonrebreather mask school operations manager if patient continues to take off his mask Notified: Primary notified by RN A Total of 15 minutes of critical care time was spent on the complex care of this patient.
[2021-08-01] MEDS: HYDROcodone/APAP 10-325MG 1 EACH TAB PO PRN ×3 (04:49→21:36)
[2021-08-01] MEDS: SODIUM CHLORIDE 0.9% 1,000 ML IV SCH ×2 (04:52→19:42)
[2021-08-01 06:17] LABS: INR 0.9 (<1.2); Partial Thromboplastin Time 22.5 sec (22.0-30.0); Prothrombin Time 10.1 sec (9.0-12.0)
[2021-08-01] MEDS: CHOLECALCIFEROL 25 MCG (1000 IU) TABLET PO SCH (07:53)
[2021-08-01] MEDS: PANTOPRAZOLE 40 MG TABLET PO SCH (07:53)
[2021-08-01] MEDS: carvediloL 12.5 MG TAB PO SCH ×2 (07:53→18:00)
[2021-08-01] MEDS: DEXAMETHASONE SOD PHOSPHATE 10 MG/ML 1 ML VIAL IVP SCH (07:53)
[2021-08-01] MEDS: busPIRone HCl 5 MG TAB PO SCH ×2 (07:53→19:42)
[2021-08-01] MEDS: FAMOTIDINE 20 MG TAB PO SCH ×2 (07:54→19:42)
[2021-08-01] MEDS: ZINC SULFATE 220 MG CAP PO SCH (07:54)
[2021-08-01] MEDS: ASPIRIN 81 MG PO SCH ×2 (07:54→19:42)
[2021-08-01] MEDS: LOSARTAN 25 MG TAB PO SCH (07:54)
[2021-08-01] MEDS: FUROSEMIDE 40 MG TAB PO SCH (07:54)
[2021-08-01] MEDS: ALPRAZolam 0.25 MG TAB PO PRN ×2 (07:54→18:00)
[2021-08-01] MEDS: CYCLOBENZAPRINE 10 MG TAB PO PRN ×2 (07:54→19:42)
[2021-08-01] MEDS: POTASSIUM CHLORIDE ER 20 MEQ TAB.ER PO SCH (07:54)
[2021-08-01] MEDS: ASCORBIC ACID 500 MG TAB PO SCH (07:54)
[2021-08-01] MEDS: ENOXAPARIN 40 MG/0.4 ML SYRINGE SQ SCH (07:55)
[2021-08-01] MEDS: BARICITINIB 2 MG TABLET PO SCH (07:55)
[2021-08-01] MEDS: ALBUTEROL HFA INHALER INHALATION PRN ×3 (08:30→20:23)
[2021-08-01 09:37] LABS: Basophils # (A) 0.03 X 10*3/uL (0.00-0.10); Basophils % (A) 0.2 %; Eosinophils # (A) 0.02 X 10*3/uL (0.04-0.35); Eosinophils % (A) 0.1 %; HCT 43.1 % (39.6-50.0); HGB 13.7 g/dL (13.0-17.0); Lymphocytes # (A) 1.71 X 10*3/uL (0.90-5.00); Lymphocytes % (A) 12.8 %; MCH 31.2 pg (27.0-32.0); MCHC 31.8 g/dL (32.0-37.0); MCV 98.2 fL (80.0-97.0); Mean Platelet Volume 8.9 fL (9.5-12.2); Monocytes # (A) 0.63 X 10*3/uL (0.20-1.00); Monocytes % (A) 4.7 %; Neutrophils # (A) 10.72 X 10*3/uL (1.80-7.70); Neutrophils % (A) 80.5 %; Platelet Count 455 X 10*3/uL (140-440); RBC 4.39 X 10*6/uL (4.40-5.60); RDW 12.8 % (11.5-14.5); WBC 13.34 X 10*3/uL (4.50-10.00)
--- NOTE | 2021-08-01 11:13 | P.PN ---
Subjective Progress Note Date: 08/01/21 This is a 65-year-old male well-known to me. He had been and getting sick last Friday. He was tested for COVID-19 and was positive. Unfortunately this patient is not vaccinated. He did receive monoclonal antibody infusion. On Friday he was initiated on Decadron and colchicine due to a obesity, history of smoking and chronic pain. He presented to the emergency room and [facility] and was found to 19 pneumonia on chest x-ray. KUB due to increased shortness of breath. He was found to have a pulse oximetry of 84 in the emergency room. He is currently on a 50% nonrebreather. His pulse oximeter is improved, but he does continue to short of breath this level. Initial laboratory studies were essentially normal. Diabetes 5 Hemoglobin 53. There Is No Significant Shift. 07/30/2021 maintained on 15 L high flow nasal cannula and nonrebreather mask, maintaining O2 sats of 90-94%. Continues on Covid cocktail,Baricitinib. Pro- calcitonin negative. Requiring sitter at bedside to facilitate patient leaving his oxygen on. Renal function within normal limits. Inflammatory markers incr eased. 07/31/2021 maintained on Covid cocktail, Baricitinib. continues on 15 L high flow nasal cannula/nonrebreather mask maintaining O2 sats in the 90s. Chest x- ray reporting interstitial and alveolar infiltrates with small effusions stable. Afebrile. Requiring safety council director to remind patient from refraining to pull off his mask. Dopplers reported negative for bilateral lower extremities DVT. 08/01/2021 respiratory status unchanged. The patient alert and oriented 3,requires sitter at bedside to remind him to leave his mask on. Afebrile. Maintained on Covid cocktail. Objective - Vital Signs Vital signs: Vital Signs Temp 99.1 F 08/01/21 09:33 Pulse 73 08/01/21 09:33 Resp 18 08/01/21 09:33 BP 131/74 08/01/21 09:33 Pulse Ox 85 L 08/01/21 09:33 Intake & Output 07/31/21 08/01/21 08/01/21 18:59 06:59 18:59 Intake Total 900 Balance 900 Weight 105 kg Intake: Intake, IV Titration 900 Amount Sodium Chloride 0.9% 1, 900 000 ml @ 75 mls/hr IV . [id number] [facility] Rx#:[id number] Other: Voiding Method Urinal Bedside Commode # Voids 1 - Exam GENERAL: Fatigued thin male, in mild distress with 15 L high flow nasal cannula/nonrebreather in place. HEAD: Atraumatic, normocephalic. EYES: Pupils equal round and reactive to light, extraocular movements intact, sclera anicteric, conjunctiva normal. NECK: supple, no JVD. LUNGS: Breath sounds diminished with bibibasilar crackles. HEART: Regular rate and rhythm without murmurs, rubs or gallops.[id number] Normal ABDOMEN: Soft, nontender, normoactive bowel sounds. No guarding, no rebound. EXTREMITIES: Normal range of motion, no pitting or edema. No clubbing or cyanosis. NEUROLOGICAL: Cranial nerves II through XII grossly intact. normal speech PSYCH: Normal mood, normal affect. SKIN: Warm, Dry, normal turgor, no rashes noted. - Labs CBC & Chem 7: 08/01/21 05:33 07/30/21 05:47 Labs: Abnormal Lab Results - Last 24 Hours (Table) 07/30/21 08/01/21 08/01/21 Range/Units 15:58 05:33 05:33 WBC 13.34 H (4.50-10.00) X 10*3/uL RBC 4.39 L (4.40-5.60) X 10*6/uL MCV 98.2 H (80.0-97.0) fL MCHC 31.8 L (32.0-37.0) g/dL Plt Count 455 H (140-440) X 10*3/uL MPV 8.9 L (9.5-12.2) fL Immature Gran # 0.23 H (0.00-0.04) X 10*3/uL Neutrophils # 10.72 H (1.80-7.70) X 10*3/uL Eosinophils # 0.02 L (0.04-0.35) X 10*3/uL Fibrinogen 630 H (200-500) mg/dL D-Dimer 0.76 H (<0.60) mg/L FEU Coronavirus (PCR) Detected A (Not Detected) Assessment and Plan Assessment: Acute COVID-19 pneumonia, status post monoclonal antibody infusion, un- vaccinated. Acute hypoxic respiratory failure Former nicotine dependence Daily alcohol consumption Essential hypertension Long-term use of opiate analgesic CAD Chronic congestive heart failure, systolic dysfunction Plan: Continue current medication regime ,monitoring and symptomatic treatment. Covid cocktail. Follow closely with pulmonary. Prognosis guarded given multiple complex medical issues. The impression and plan of care has been dictated as directed. : I performed a history and examination of this patient, discussed the same with the dictator. I agree with the dictator's note ,documented as a scribe. Any additional findings or plans will be noted.
[2021-08-01 11:25] LABS: African American GFR (CKD) 116.4 (60.0-200.0); Albumin 3.3 g/dL (3.8-4.9); Albumin/Globulin Ratio 1.43 (1.60-3.17); Anion Gap 12.6 mmol/L (10.00-18.00); BUN/Creat Ratio 26.71 Ratio (12.00-20.00); Blood Urea Nitrogen 18.7 mg/dL (9.0-27.0); C Reactive Protein 2.2 mg/dL (0.00-0.80); Calcium 8.5 mg/dL (8.7-10.3); Carbon Dioxide 23.4 mmol/L (20.0-27.5); Globulin 2.3 g/dL (1.6-3.3); Magnesium 2.4 mg/dL (1.5-2.4); Non-African American GFR(CKD) 100.4 (60.0-200.0); Potassium 4.2 mmol/L (3.5-5.5); Total Bilirubin 0.5 mg/dL (0.30-1.20); Total Protein 5.6 g/dL (6.2-8.2)
[2021-08-01] MEDS: HALOPERIDOL LACTATE 5 MG/ML 1 ML VIAL IM PRN ×3 (11:38→22:49)
--- NOTE | 2021-08-01 16:46 | P.PN ---
Subjective Progress Note Date: 08/01/21 Principal diagnosis: Shortness of breath, hypoxia, COVID 19 This is 65-year-old male patient who has a history of hyperlipidemia, hypertension, anxiety, PTSD. He developed symptoms of increasing shortness of breath cough and congestion headache fever chills approximately 4 days ago. He tested positive for COVID-19 and received monoclonal antibodies by [facility]. He presented to the emergency room early this morning with worsening symptoms. The patient is not vaccinated. Chest x-ray shows bilateral patchy opacities consistent with COVID-19 pneumonia. White count 5.8. Hemoglobin 15.3. Lymphocytes 0.7. D-dimer 0.33. Sodium 134. Potassium 4.4. Creatinine 0.84. AST 56,. ALT 34. Troponins negative 3. ProBNP 54. He's been initiated on Decadron, Lovenox, vitamin supplements. He is seen today in consultation on the regular medical floor. He is already on by mouth liters high flow nasal cannula plus a nonrebreather mask. He is afebrile. Hemodynam ically stable. Dyspneic with minimal conversation. Dyspneic with minimal exertion. On 07/29/2021 patient seen in follow-up on medical surgical floor, he is currently on 15 L per high flow nasal cannula his pulse ox is 87-91%, he is afebrile, hemodynamically stable, patient has been repositioning self and then, on his left side right side, and he states he did try some prone positioning briefly.He was started on Baricitinib yesterday and he is on Decadron 6 mg daily in addition to prophylactic Lovenox. Today's labs have been reviewed, his white blood cell count is 10.7, hemoglobin is 14.4, he is actually excellent renal profile are within normal limits, he is d-dimer on admission was negative at 0.33. LDH and CRP levels are still pending, pro-calcitonin level was negative at 0.07. On 07/30/2021 patient is seen in follow-up on medical surgical floor, he remains on high flow oxygen with 15 L high flow nasal cannula and 100% nonrebreather mask, and his pulse ox of 92-94%, and in a patient was confused, and agitated at times, he was removing his oxygen desaturating, enforcement safety officer is outside the door, doing supervision. Patient is breathing fairly comfortably, he feels like his breathing is a little easier today, has occasional cough, at times she is able to bring up some yellow and green colored phlegm, no fever or chills, he was started on Baricitinib on 07/28/2021, he is also on Decadron 6 mg daily, and Lovenox 40 mg daily. Remains on IV fluids with 0.9 normal saline at a rate of 75 ML per hour, he is on COVID-19 vitamins. Labs reviewed, white blood cell count is 12.9, hemoglobin is 14.6, platelet count is 369, his d-dimer slightly increased and is currently at 0.60, electrolytes and renal profile are within normal limits. His LDH today is increased and is up to 1634, patient had 4 sets of negative troponin at less than 0.012, proBNP was 107, pro-calcitonin level was negative at 0.07 On on 08/01/2021 patient seen in follow-up on medical surgical floor. Patient is currently on 15 L and 100% nonrebreather mask, he had a rapid response team call early this morning for a concern of intermittent pleuritic chest discomfort, and pain in bilateral lower extremities. In addition patient was noted to be intermittently removing his oxygen and desaturating. Currently he is awake, he is laying in bed, however he is crying, he is complaining of pain, however he is not able to say where the pain is. O2 saturation is 91%. His been afebrile, hemodynamically stable, lower extremity Dopplers were negative for DVT. Patient is currently on Baricitinib, he is on Lovenox 40 mg daily, and Decadron. He is receiving IV fluids at a rate of 75 ML per hour. He is d-dimer is 0.76, white count is 13.3, hemoglobin is 13.7, electrolyte and renal profile are within normal limits, he is LDH has improved since admission, and is down to 572, his troponins were negative 3, and CRP is improving and is down to 2.2. Objective - Vital Signs Vital signs: Vital Signs Temp 98.7 F 08/01/21 13:29 Pulse 83 08/01/21 13:29 Resp 18 08/01/21 13:29 BP 103/67 08/01/21 13:29 Pulse Ox 91 L 08/01/21 13:29 Intake & Output 07/31/21 08/01/21 08/01/21 18:59 06:59 18:59 Intake Total 900 Balance 900 Weight 105 kg Intake: Intake, IV Titration 900 Amount Sodium Chloride 0.9% 1, 900 000 ml @ 75 mls/hr IV . [id number] [facility] Rx#:[id number] Other: Voiding Method Urinal Bedside Commode # Voids 1 - Exam GENERAL EXAM: Alert, very pleasant, 65-year-old white male, on 15 L per high flow nasal cannula and 100% nonrebreather mask with pulse ox of 92% comfortable in no apparent distress. HEAD: Normocephalic/atraumatic. EYES: Normal reaction of pupils, equal size. Conjunctiva pink, sclera white. NOSE: Clear with pink turbinates. THROAT: No erythema or exudates. NECK: No masses, no JVD, no thyroid enlargement, no adenopathy. CHEST: No chest wall deformity. Symmetrical expansion. LUNGS: Equal air entry with fine rales bilaterally CVS: Regular rate and rhythm, normal S1 and S2, no gallops, no murmurs, no rubs ABDOMEN: Soft, nontender. No hepatosplenomegaly, normal bowel sounds, no guardi ng or rigidity. EXTREMITIES: No clubbing, no edema, no cyanosis, 2+ pulses and upper and lower extremities. MUSCULOSKELETAL: Muscle strength and tone normal. SPINE: No scoliosis or deformity SKIN: No rashes CENTRAL NERVOUS SYSTEM: Alert and oriented -3. No focal deficits, tone is normal in all 4 extremities. PSYCHIATRIC: Alert and oriented -3. Appropriate affect. Intact judgment and insight. - Labs CBC & Chem 7: 08/01/21 05:33 08/01/21 05:33 Labs: Abnormal Lab Results - Last 24 Hours (Table) 07/30/21 08/01/21 08/01/21 Range/Units 15:58 05:33 05:33 WBC 13.34 H (4.50-10.00) X 10*3/uL RBC 4.39 L (4.40-5.60) X 10*6/uL MCV 98.2 H (80.0-97.0) fL MCHC 31.8 L (32.0-37.0) g/dL Plt Count 455 H (140-440) X 10*3/uL MPV 8.9 L (9.5-12.2) fL Immature Gran # 0.23 H (0.00-0.04) X 10*3/uL Neutrophils # 10.72 H (1.80-7.70) X 10*3/uL Eosinophils # 0.02 L (0.04-0.35) X 10*3/uL Fibrinogen 630 H (200-500) mg/dL D-Dimer 0.76 H (<0.60) mg/L FEU BUN/Creatinine Ratio (12.00-20.00) Ratio Glucose (70-110) mg/dL Calcium (8.7-10.3) mg/dL Ferritin (22.0-322.0) ng/mL Lactate Dehydrogenase (120-246) U/L C-Reactive Protein (0.00-0.80) mg/dL Total Protein (6.2-8.2) g/dL Albumin (3.8-4.9) g/dL Albumin/Globulin Ratio (1.60-3.17) g/dL Coronavirus (PCR) Detected A (Not Detected) 08/01/21 Range/Units 05:33 WBC (4.50-10.00) X 10*3/uL RBC (4.40-5.60) X 10*6/uL MCV (80.0-97.0) fL MCHC (32.0-37.0) g/dL Plt Count (140-440) X 10*3/uL MPV (9.5-12.2) fL Immature Gran # (0.00-0.04) X 10*3/uL Neutrophils # (1.80-7.70) X 10*3/uL Eosinophils # (0.04-0.35) X 10*3/uL Fibrinogen (200-500) mg/dL D-Dimer (<0.60) mg/L FEU BUN/Creatinine Ratio 26.71 H (12.00-20.00) Ratio Glucose 123 H (70-110) mg/dL Calcium 8.5 L (8.7-10.3) mg/dL Ferritin 656.0 H (22.0-322.0) ng/mL Lactate Dehydrogenase 572 H (120-246) U/L C-Reactive Protein 2.20 H (0.00-0.80) mg/dL Total Protein 5.6 L (6.2-8.2) g/dL Albumin 3.3 L (3.8-4.9) g/dL Albumin/Globulin Ratio 1.43 L (1.60-3.17) g/dL Coronavirus (PCR) (Not Detected) Assessment and Plan Plan: Assessment: #1. Acute hypoxic respiratory failure is suspected to COVID-19 pneumonia, patient presented with 5 day history of symptom onset on 07/24/2021. He status post monoclonal antibody infusion. Patient isn't nonvaccinated adult against COVID-19. Currently on 15 L high flow nasal cannula and nonrebreather mask, started on Baricitinib on 07/28/2021 #2. Chronic systolic CHF #3. Hypertension #4. History of coronary artery disease #5. Hyperlipidemia #6. Chronic back pain #7. History of EtOH use, in remission #8. History of anxiety and PTSD #9. Nonsmoker #10. Mildly elevated d-dimer, will obtain CTA chest to rule out possibility of PE, lower extremity Dopplers were negative for DVT Plan: Continue Baricitinib Continue Lovenox, continue Decadron Patient continues to require high flow oxygen, currently on 15 L on nonrebreather mask We'll proceed with CT angiogram of the chest to rule out possibility of pulmonary embolism especially in view of intermittent pleuritic chest pain reported by the patient yesterday Continue Haldol Maintain safety precautions We'll continue to follow his clinical course I performed a history & physical examination of the patient and discussed their management with my nurse practitioner, Katie Snider. I reviewed the nurse practitioner's note and agree with the documented findings and plan of care. Lung sounds are positive for scattered rales throughout the lung palacio. The findings and the impression was discussed with the patient. I attest to the documentation by the nurse practitioner. Time with Patient: Less than 30
[2021-08-01] MEDS: ATORVASTATIN 40 MG TAB PO SCH (18:00)
--- NOTE | 2021-08-01 18:48 | CT ---
EXAMINATION TYPE: CT chest angio for PE DATE OF EXAM: 08/01/2021 COMPARISON: Radiograph 07/31/2021. CT 11/06/2020. HISTORY: elevated d-dimer CT DLP: 831 mGycm Automated exposure control for dose reduction was used. CONTRAST: CT Chest for pulmonary embolism performed with with IV Contrast, patient injected with 100 mL of Isov ue 370. MIPS reformats were provided and reviewed. FINDINGS: LUNGS: There are bilateral diffuse moderate to marked patchy ground glass opacities. There is no pleu ral effusion or pneumothorax seen. The tracheobronchial tree is patent. MEDIASTINUM: There is limited evaluation of the pulmonary artery segmental subsegmental branches. Oth erwise there is no CT evidence for pulmonary embolism. There are no greater than 1 cm hilar or media stinal lymph nodes. No pericardial effusion is seen. OTHER: Cholecystectomy and small hiatal hernia seen. No additional significant abnormality is seen. IMPRESSION: No acute PE within the limitations of the study. Findings compatible with atypical pneumonia including Covid.
[2021-08-01] MEDS: MELATONIN 5 MG TABLET PO PRN (21:37)
[2021-08-01] MEDS: ACETAMINOPHEN TAB 325 MG TAB PO PRN (23:53)
[2021-08-02] MEDS: ALPRAZolam 0.25 MG TAB PO PRN (02:48)
[2021-08-02] MEDS: SODIUM CHLORIDE 0.9% 1,000 ML IV SCH ×2 (04:12→18:23)
[2021-08-02] MEDS: CYCLOBENZAPRINE 10 MG TAB PO PRN (04:31)
[2021-08-02] MEDS ORDERED: LORazepam 2 MG/ML INJ IV PRN (05:00)
[2021-08-02] MEDS: HALOPERIDOL LACTATE 5 MG/ML 1 ML VIAL IM PRN (06:05)
[2021-08-02] MEDS ORDERED: LORazepam 2 MG/ML INJ IV STA (06:12)
[2021-08-02] MEDS ORDERED: propofoL 100 ML IV ONE (06:37)
--- NOTE | 2021-08-02 07:06 | XR ---
EXAMINATION TYPE: XR chest 1V DATE OF EXAM: 08/02/2021 CLINICAL HISTORY: Difficulty breathing had to be intubated. COVID. TECHNIQUE: Single AP portable supine view of the chest is obtained. COMPARISON: Chest x-ray from 2 days earlier. CTA chest from yesterday. FINDINGS: Endotracheal tube terminates at aortic knob level just above the giovani. Advise pulling back 2 to 3 c m to be in more ideal position. Bilateral multifocal and confluent opacities greatest in the lower lungs, left greater than right. In creased opacity right upper lung noted. Cardiac silhouette size stable and within normal limits. Osse ous structures are intact. IMPRESSION: 1. New endotracheal tube slightly low lying just above giovani, advise pulling back 2 to 3 cm to be in more ideal position. 2. Bilateral multifocal increased opacities redemonstrated, worsening findings right upper lung noted , findings consistent with covid-19 infection progression.
[2021-08-02] MEDS ORDERED: IPRATROPIUM-ALBUTEROL 3 ML NEB INHALATION PRN (07:31)
[2021-08-02] MEDS ORDERED: CISATRACURIUM 2 MG/ML 5 ML VIAL IV ONE ×2 (07:47→07:49)
[2021-08-02] MEDS: PANTOPRAZOLE 40 MG TABLET PO SCH (07:59)
[2021-08-02] MEDS: carvediloL 12.5 MG TAB PO SCH ×2 (07:59→19:20)
[2021-08-02] MEDS ORDERED: IPRATROPIUM-ALBUTEROL 3 ML NEB INHALATION SCH (08:00)
[2021-08-02] MEDS: CISATRACURIUM 200 MG in SODIUM CHLORIDE 0.9% 180 ML IV SCH ×2 (08:16→22:24)
[2021-08-02] MEDS ORDERED: NOREPINEPHRIN 4 MG-0.9% NS PMX 4 MG/250 ML ML IV ONE (08:39)
--- NOTE | 2021-08-02 09:12 | XR ---
EXAMINATION TYPE: XR chest 1V confirm line [facility] DATE OF EXAM: 08/02/2021 CLINICAL HISTORY: Central line placement. TECHNIQUE: Single AP portable semi-upright view of the chest is obtained. COMPARISON: Chest x-ray from one day earlier and older studies. FINDINGS: New left subclavian central venous catheter terminates in SVC. No pneumothorax seen. Sligh t retraction of endotracheal tube now just above the aortic knob. No nasogastric tube visualized. Bilateral multifocal and confluent opacities greatest in the left lower lung right upper lung redemon strated. Cardiac silhouette size stable and within normal limits. Osseous structures are intact. IMPRESSION: As above.
[2021-08-02] MEDS: fentaNYL (PF). 1,000 MCG in SODIUM CHLORIDE 0.9% 80 ML IV SCH ×2 (09:27→23:20)
[2021-08-02] MEDS: CHOLECALCIFEROL 25 MCG (1000 IU) TABLET PO SCH (09:36)
[2021-08-02] MEDS: PANTOPRAZOLE 40 MG/10 ML VIAL IVP SCH (09:36)
[2021-08-02] MEDS: POTASSIUM CHLORIDE ER 20 MEQ TAB.ER PO SCH (09:36)
[2021-08-02] MEDS: ENOXAPARIN 40 MG/0.4 ML SYRINGE SQ SCH (09:36)
[2021-08-02] MEDS: ASPIRIN 81 MG PO SCH ×2 (09:37→21:51)
[2021-08-02] MEDS: ZINC SULFATE 220 MG CAP PO SCH (09:37)
[2021-08-02] MEDS: DEXAMETHASONE SOD PHOSPHATE 10 MG/ML 1 ML VIAL IVP SCH (09:37)
--- NOTE | 2021-08-02 10:17 | P.PN ---
Subjective Progress Note Date: 08/02/21 Principal diagnosis: Shortness of breath, hypoxia, COVID 19 This is 65-year-old male patient who has a history of hyperlipidemia, hypertension, anxiety, PTSD. He developed symptoms of increasing shortness of breath cough and congestion headache fever chills approximately 4 days ago. He tested positive for COVID-19 and received monoclonal antibodies by [facility]. He presented to the emergency room early this morning with worsening symptoms. The patient is not vaccinated. Chest x-ray shows bilateral patchy opacities consistent with COVID-19 pneumonia. White count 5.8. Hemoglobin 15.3. Lymphocytes 0.7. D-dimer 0.33. Sodium 134. Potassium 4.4. Creatinine 0.84. AST 56,. ALT 34. Troponins negative 3. ProBNP 54. He's been initiated on Decadron, Lovenox, vitamin supplements. He is seen today in consultation on the regular medical floor. He is already on by mouth liters high flow nasal cannula plus a nonrebreather mask. He is afebrile. Hemodynam ically stable. Dyspneic with minimal conversation. Dyspneic with minimal exertion. On 07/29/2021 patient seen in follow-up on medical surgical floor, he is currently on 15 L per high flow nasal cannula his pulse ox is 87-91%, he is afebrile, hemodynamically stable, patient has been repositioning self and then, on his left side right side, and he states he did try some prone positioning briefly.He was started on Baricitinib yesterday and he is on Decadron 6 mg daily in addition to prophylactic Lovenox. Today's labs have been reviewed, his white blood cell count is 10.7, hemoglobin is 14.4, he is actually excellent renal profile are within normal limits, he is d-dimer on admission was negative at 0.33. LDH and CRP levels are still pending, pro-calcitonin level was negative at 0.07. On 07/30/2021 patient is seen in follow-up on medical surgical floor, he remains on high flow oxygen with 15 L high flow nasal cannula and 100% nonrebreather mask, and his pulse ox of 92-94%, and in a patient was confused, and agitated at times, he was removing his oxygen desaturating, aviation safety inspector is outside the door, doing supervision. Patient is breathing fairly comfortably, he feels like his breathing is a little easier today, has occasional cough, at times she is able to bring up some yellow and green colored phlegm, no fever or chills, he was started on Baricitinib on 07/28/2021, he is also on Decadron 6 mg daily, and Lovenox 40 mg daily. Remains on IV fluids with 0.9 normal saline at a rate of 75 ML per hour, he is on COVID-19 vitamins. Labs reviewed, white blood cell count is 12.9, hemoglobin is 14.6, platelet count is 369, his d-dimer slightly increased and is currently at 0.60, electrolytes and renal profile are within normal limits. His LDH today is increased and is up to 1634, patient had 4 sets of negative troponin at less than 0.012, proBNP was 107, pro-calcitonin level was negative at 0.07 On 08/01/2021 patient seen in follow-up on medical surgical floor. Patient is currently on 15 L and 100% nonrebreather mask, he had a rapid response team call early this morning for a concern of intermittent pleuritic chest discomfort, and pain in bilateral lower extremities. In addition patient was noted to be intermittently removing his oxygen and desaturating. Currently he is awake, he is laying in bed, however he is crying, he is complaining of pain, however he is not able to say where the pain is. O2 saturation is 91%. His been afebrile, hemodynamically stable, lower extremity Dopplers were negative for DVT. Patient is currently on Baricitinib, he is on Lovenox 40 mg daily, and Decadron. He is receiving IV fluids at a rate of 75 ML per hour. He is d-dimer is 0.76, white count is 13.3, hemoglobin is 13.7, electrolyte and renal profile are within normal limits, he is LDH has improved since admission, and is down to 572, his troponins were negative 3, and CRP is improving and is down to 2.2. On 08/02/2021 patient seen in follow-up in the intensive care unit, this morning she was emergently transferred to the ICU for worsening hypoxia, he was mateo gently intubated and placed on mechanical ventilator, currently sedated, on assist-control mode of ventilation with a rate of 36, tidal volume is 450, FiO2 100% and PEEP of 10. Patient is quite dyssyncronous with the ventilator, Nimbex has been ordered, awaiting starting the paralytic. This pulse ox is only 82%, and the PEEP has been increased to 14, awaiting follow-up blood gas. He is in sinus mechanism tachycardic with a rate of 116. He is currently on 0.9 with seen at the rate of 75 ML per hour, Diprivan is 50 mics per kilo per minute. Patient was given Nimbex 10 mg IV push, he is better synchronize, his peak air pressures 34, plateau is 31. His chest x-ray from this morning shows ET tube slightly low, just above the giovani, and we will pull back the ET tube 2 or 3 cm. There are bilateral multifocal increased opacities with worsening findings and the right upper lung. CT angiogram of the chest from yesterday showed no acute pulmonary embolism within the limitation of the study. Today's labs are still pending. Patient continues on Baricitinib, Lovenox 40 mg, Decadron. Pickett catheter has been placed, patient is producing urine, he required a brief norepinephrine support. We'll place his Lasix on hold, will discontinue oral medications. Objective - Vital Signs Vital signs: Vital Signs Temp 98.2 F 08/02/21 06:00 Pulse 125 H 08/02/21 07:20 Resp 37 H 08/02/21 07:20 BP 126/92 08/02/21 07:20 Pulse Ox 86 L 08/02/21 07:20 Intake & Output 08/01/21 08/02/21 08/02/21 18:59 06:59 18:59 Intake Total 360 145.72 Output Total 500 100 Balance 360 -500 45.72 Weight 104 kg Intake: Intake, IV Titration 145.72 Amount Sodium Chloride 0.9% 1, 75 000 ml @ 75 mls/hr IV . [id number] [facility] Rx#:[id number] propofoL 1,000 mg In 70.72 Empty Bag 1 bag @ Titrate IV .Q0M [facility] Rx#: [id number] Oral 360 Output: Urine 500 100 Straight 500 Other: Voiding Method Diaper # Voids 4 4 # Bowel Movements 2 - Exam GENERAL EXAM: Sedated, paralyzed and intubated, 65-year-old white male, on assist-control with a rate of 36, tidal volume is 400, FiO2 100%, and PEEP of 10, quite dyssynchronous, with a sat of 84%, newly intubated, PEEP has been in creased to 14, patient will be probably sedated and paralyzed HEAD: Normocephalic/atraumatic. EYES: Normal reaction of pupils, equal size. Conjunctiva pink, sclera white. NOSE: Clear with pink turbinates. THROAT: No erythema or exudates. NECK: No masses, no JVD, no thyroid enlargement, no adenopathy. CHEST: No chest wall deformity. Symmetrical expansion. LUNGS: Equal air entry with fine rales bilaterally CVS: Regular rate and rhythm, normal S1 and S2, no gallops, no murmurs, no rubs ABDOMEN: Soft, nontender. No hepatosplenomegaly, normal bowel sounds, no guarding or rigidity. EXTREMITIES: No clubbing, no edema, no cyanosis, 2+ pulses and upper and lower extremities. MUSCULOSKELETAL: Muscle strength and tone normal. SPINE: No scoliosis or deformity SKIN: No rashes CENTRAL NERVOUS SYSTEM: Sedated No focal deficits, tone is normal in all 4 extremities. - Labs CBC & Chem 7: 08/01/21 05:33 08/01/21 05:33 Labs: Abnormal Lab Results - Last 24 Hours (Table) 08/01/21 Range/Units 05:33 BUN/Creatinine Ratio 26.71 H (12.00-20.00) Ratio Glucose 123 H (70-110) mg/dL Calcium 8.5 L (8.7-10.3) mg/dL Ferritin 656.0 H (22.0-322.0) ng/mL Lactate Dehydrogenase 572 H (120-246) U/L C-Reactive Protein 2.20 H (0.00-0.80) mg/dL Total Protein 5.6 L (6.2-8.2) g/dL Albumin 3.3 L (3.8-4.9) g/dL Albumin/Globulin Ratio 1.43 L (1.60-3.17) g/dL Assessment and Plan Plan: Assessment: #1. Acute hypoxic respiratory failure is suspected to COVID-19 pneumonia, patient presented with 5 day history of symptom onset on 07/24/2021. He status post monoclonal antibody infusion. Patient isn't nonvaccinated adult against COVID-19. Currently on 15 L high flow nasal cannula and nonrebreather mask, started on Baricitinib on 07/28/2021. Transfer to the intensive care unit on 08/02/2021 and emergently intubated #2. Chronic systolic CHF #3. Hypertension #4. History of coronary artery disease #5. Hyperlipidemia #6. Chronic back pain #7. History of EtOH use, in remission #8. History of anxiety and PTSD #9. Nonsmoker #10. Mildly elevated d-dimer, CT angiogram of chest was a limited study however showed no definitive pulmonary embolism, lower extremity Dopplers were negative for DVT Plan: Continue current vent settings, increased the PEEP up to 14, rate of 36, tidal volume of 450, and FiO2 of 100% Patient is to be properly sedated and paralyzed, we'll add fentanyl, continue with propofol, and Nimbex infusion Continue Baricitinib Continue Lovenox, continue Decadron We'll discontinue Lasix Switch oral Lasix to IV Protonix Hold oral pain medications We will use IV fentanyl for discomfort Awaiting today's labs Overall prognosis is guarded Initiate tube feedings We'll continue to follow I performed a history & physical examination of the patient and discussed their management with my nurse practitioner, Katie Snider. I reviewed the nurse practitioner's note and agree with the documented findings and plan of care. Lung sounds are positive for scattered rales throughout the lung palacio. The findings and the impression was discussed with the patient. I attest to the documentation by the nurse practitioner. Time with Patient: Greater than 30
[2021-08-02 10:28] LABS: ABG Base Excess -3.2 mmol/L; ABG HCO3 22 mmol/L (21-25); ABG Oxygen Saturation 90.4 % (94-97); ABG PCO2 38 mmHg (35-45); ABG PH 7.37 (7.35-7.45); ABG PO2 63 mmHg (83-108); ABG TCO2 23 mmol/L (19-24)
[2021-08-02 10:30] LABS: Allen Test Performed? no
[2021-08-02] MEDS: LOSARTAN 25 MG TAB PO SCH (12:04)
[2021-08-02] MEDS: ASCORBIC ACID 500 MG TAB PO SCH (12:04)
[2021-08-02 13:10] LABS: Basophils % (A) 0 %; Eosinophils % (A) 0 %; HCT 39.6 % (39.0-53.0); HGB 13.3 gm/dL (13.0-17.5); Lymphocytes # (A) 0.5 k/uL (1.0-4.8); Lymphocytes % (A) 3 %; MCH 32.9 pg (25.0-35.0); MCHC 33.6 g/dL (31.0-37.0); MCV 98.1 fL (80.0-100.0); Mean Platelet Volume 7.2; Monocytes # (A) 0.3 k/uL (0-1.0); Monocytes % (A) 2 %; Neutrophils # (A) 14.5 k/uL (1.3-7.7); Neutrophils % (A) 94 %; Platelet Count 480 k/uL (150-450); RBC 4.03 m/uL (4.30-5.90); RDW 12.8 % (11.5-15.5); WBC 15.5 k/uL (3.8-10.6)
[2021-08-02] MEDS: NOREPINEPHRINE 4 MG in SODIUM CHLORIDE 0.9% 250 ML IV SCH (13:19)
[2021-08-02 13:20] LABS: ALT 39 U/L (4-49); AST 41 U/L (17-59); African American GFR (CKD) >90 (>60 ml/min/1.73 sqM); Albumin 2.7 g/dL (3.5-5.0); Alkaline Phosphatase 87 U/L (38-126); Anion Gap 10 mmol/L; Blood Urea Nitrogen 18 mg/dL (9-20); Calcium 7.6 mg/dL (8.4-10.2); Carbon Dioxide 20 mmol/L (22-30); Chloride 109 mmol/L (98-107); Globulin 2.7 g/dL; Glucose 138 mg/dL (74-99); Non-African American GFR(CKD) >90 (>60 ml/min/1.73 sqM); Potassium 4.3 mmol/L (3.5-5.1); Sodium 139 mmol/L (137-145); Total Bilirubin 0.6 mg/dL (0.2-1.3); Total Protein 5.4 g/dL (6.3-8.2)
--- NOTE | 2021-08-02 13:39 | PCN ---
PROCEDURE NOTE PULMONARY/CRITICAL CARE PROCEDURE NOTE: OPERATORS: 1. Dr. Miguel. 2. Dr. Snider. 3. Dr. Guerrero. PROCEDURE: Placement of left subclavian triple-lumen catheter. PREOPERATIVE DIAGNOSIS: Administration of fluids and pressors. POSTOPERATIVE DIAGNOSIS: Administration of fluids and pressors. PROCEDURE DESCRIPTION: A time-out was completed verifying correct patient, procedure, site, positioning, and implant(s) or special equipment if applicable. The patient was placed in a dependent position appropriate for triple lumen catheter placement based on the vein to be cannulated. The patient's left shoulder was prepped and draped in sterile fashion. 1% Lidocaine was used to anesthetize the surrounding skin area. A triple lumen 9F Cordis catheter was introduced into the left subclavian vein using Seldinger technique. The catheter was threaded smoothly over the guidewire and appropriate blood return was obtained. There was good blood return from all 3 ports. Each lumen of the catheter was evacuated of air and flushed with sterile saline. The catheter was then sutured in place to the skin and a sterile dressing applied by the nurse. Perfusion to the extremity distal to the point of catheter insertion was checked and found to be adequate. A chest x-ray was ordered to check placement. There was no immediate complication. The patient tolerated the procedure well. MMODL / AMBERLYN: [id number] /
--- NOTE | 2021-08-02 13:39 | PCN ---
PROCEDURE NOTE PULMONARY/CRITICAL CARE PROCEDURE NOTE: PROCEDURE: Placement of right radial arterial line. PREOPERATIVE DIAGNOSIS: Frequent blood draws and blood gas monitoring. POSTOPERATIVE DIAGNOSIS: Frequent blood draws and blood gas monitoring. OPERATORS: 1. Dr. Miguel. 2. Dr. Guerrero. PROCEDURE DESCRIPTION: A time-out was completed verifying correct patient, procedure, site, positioning, and implant(s) or special equipment if applicable. Christophe's test was performed to ensure adequate perfusion. The patient's right wrist was prepped and draped in sterile fashion. 1% Lidocaine was used to anesthetize the area. An 18G Arrow arterial line was introduced into the right radial artery. The catheter was threaded over the guidewire and the needle was removed with appropriate pulsatile blood return. Blood loss was minimal. The catheter was then sutured in place to the skin and a sterile dressing applied by the nurse. Perfusion to the extremity distal to the point of catheter insertion was checked and found to be adequate. The patient tolerated the procedure well and there were no immediate complications. MMODL / IJN: [id number] /
[2021-08-02] MEDS: ACETAMINOPHEN IV (For NPO) 1,000 MG in EMPTY BAG 1 BAG IVPB PRN ×2 (13:59→23:53)
--- NOTE | 2021-08-02 14:50 | P.PN ---
Subjective Progress Note Date: 08/02/21 This is a 65-year-old male well-known to me. He had been and getting sick last Friday. He was tested for COVID-19 and was positive. Unfortunately this patient is not vaccinated. He did receive monoclonal antibody infusion. On Friday he was initiated on Decadron and colchicine due to a obesity, history of smoking and chronic pain. He presented to the emergency room and [facility] and was found to 19 pneumonia on chest x-ray. KUB due to increased shortness of breath. He was found to have a pulse oximetry of 84 in the emergency room. He is currently on a 50% nonrebreather. His pulse oximeter is improved, but he does continue to short of breath this level. Initial laboratory studies were essentially normal. Diabetes 5 Hemoglobin 53. There Is No Significant Shift. 07/30/2021 maintained on 15 L high flow nasal cannula and nonrebreather mask, maintaining O2 sats of 90-94%. Continues on Covid cocktail,Baricitinib. Pro- calcitonin negative. Requiring sitter at bedside to facilitate patient leaving his oxygen on. Renal function within normal limits. Inflammatory markers incr eased. 07/31/2021 maintained on Covid cocktail, Baricitinib. continues on 15 L high flow nasal cannula/nonrebreather mask maintaining O2 sats in the 90s. Chest x- ray reporting interstitial and alveolar infiltrates with small effusions stable. Afebrile. Requiring system safety engineer to remind patient from refraining to pull off his mask. Dopplers reported negative for bilateral lower extremities DVT. 08/01/2021 respiratory status unchanged. The patient alert and oriented 3,requires sitter at bedside to remind him to leave his mask on. Afebrile. Maintained on Covid cocktail. 08/02/2021 respiratory status worsened, unable to tolerate BiPAP and transferred to the ICU, requiring emergent intubation. Maintained on 100% FiO2/+18 of PEEP. Chest x-ray reporting increased bilateral multifocal opacities-consistent with COVID-19 infection progression. CTA reported negative for acute PE.Continues on Nimbex, diprovan, fentanyl. On and off Levophed. Currently on third liter of IV fluids. Mild tachycardia, borderline hypotension. Temperature 102.6, WBC 13.34, hemoglobin 13.7, platelets 455. D-dimer 0.76, ferritin 656, LDH 572 CRP 2.20. ABGs pending. Objective - Vital Signs Vital signs: Vital Signs Temp 106.8 F H 08/02/21 12:00 Pulse 102 H 08/02/21 12:00 Resp 36 H 08/02/21 12:30 BP 112/75 08/02/21 12:30 Pulse Ox 91 L 08/02/21 12:30 Intake & Output 08/01/21 08/02/21 08/02/21 18:59 06:59 18:59 Intake Total 360 2419.536 Output Total 500 325 Balance 360 -500 2094.536 Weight 104 kg 109.4 kg Intake: IV 2150 Sodium Chloride 0.9% 1, 2150 000 ml @ 75 mls/hr IV . [id number] [facility] Rx#:[id number] Intake, IV Titration 269.536 Amount Cisatracurium 200 mg In 23.816 Sodium Chloride 0.9% 180 ml @ 1 MCG/KG/MIN 6.24 mls/hr IV .Q24H [facility] Rx#: [id number] Sodium Chloride 0.9% 1, 75 000 ml @ 75 mls/hr IV . [id number] [facility] Rx#:[id number] propofoL 1,000 mg In 170.72 Empty Bag 1 bag @ Titrate IV .Q0M [facility] Rx#: [id number] Oral 360 Output: Urine 500 325 Straight 500 Other: Voiding Method Diaper # Voids 4 4 # Bowel Movements 2 ABP, PAP, CO, CI - Last Documented Arterial Blood Pressure 96/54 - Exam Limited exam on a covid patient,intubated: GENERAL: Fatigued thin male, intubated ,sedated, paralyzed HEAD: Atraumatic, normocephalic. HEART: Telemetry sinus rhythm-sinus tachycardia EXTREMITIES: Normal range of motion, no edema NEUROLOGICAL: Unable to assess, patient on mechanical ventilator, sedated and paralyzed - Labs CBC & Chem 7: 08/02/21 12:58 08/02/21 12:58 Labs: Abnormal Lab Results - Last 24 Hours (Table) 08/02/21 08/02/21 08/02/21 Range/Units 10:27 12:58 12:58 WBC 15.5 H (3.8-10.6) k/uL RBC 4.03 L (4.30-5.90) m/uL Plt Count 480 H (150-450) k/uL Neutrophils # 14.5 H (1.3-7.7) k/uL Lymphocytes # 0.5 L (1.0-4.8) k/uL ABG pO2 63 L (83-108) mmHg ABG O2 Saturation 90.4 L (94-97) % Chloride 109 H (98-107) mmol/L Carbon Dioxide 20 L (22-30) mmol/L Glucose 138 H (74-99) mg/dL Calcium 7.6 L (8.4-10.2) mg/dL Total Protein 5.4 L (6.3-8.2) g/dL Albumin 2.7 L (3.5-5.0) g/dL Assessment and Plan Assessment: Acute COVID-19 pneumonia, status post monoclonal antibody infusion, un- vaccinated. Acute hypoxic respiratory failure, mechanical ventilator-dependent Former nicotine dependence Daily alcohol consumption Essential hypertension Long-term use of opiate analgesic CAD Chronic congestive heart failure, systolic dysfunction Plan: Continue current medication regime ,monitoring and symptomatic treatment. Covid cocktail. ICU management as per call center nurse. Prognosis guarded given multiple complex medical issues. The impression and plan of care has been dictated as directed. : I performed a history and examination of this patient, discussed the same with the dictator. I agree with the dictator's note ,documented as a scribe. Any additional findings or plans will be noted.
[2021-08-02] MEDS: CHLORHEXIDINE GLUCONATE 15 ML CUP MUCOUS MEM SCH (21:51)
[2021-08-02] MEDS: ATORVASTATIN 40 MG TAB PO SCH (21:51)
[2021-08-02] MEDS: BARICITINIB 2 MG TABLET PO SCH (21:51)
[2021-08-02 23:38] LABS: Glucose,Whole Blood 131 mg/dL (75-99)
[2021-08-03] MEDS: CLEVIDIPINE BUTYRATE 25 MG in EMPTY BAG 1 BAG IV SCH (01:55)
[2021-08-03 03:53] LABS: Basophils % (A) 0 %; Eosinophils # (A) 0.1 k/uL (0-0.7); Eosinophils % (A) 0 %; HCT 40.1 % (39.0-53.0); Lymphocytes # (A) 0.4 k/uL (1.0-4.8); Lymphocytes % (A) 2 %; MCH 32.1 pg (25.0-35.0); MCHC 32.4 g/dL (31.0-37.0); Mean Platelet Volume 6.9; Monocytes # (A) 0.2 k/uL (0-1.0); Monocytes % (A) 1 %; Neutrophils # (A) 16.6 k/uL (1.3-7.7); Neutrophils % (A) 96 %; Platelet Count 430 k/uL (150-450); RBC 4.05 m/uL (4.30-5.90); RDW 12.9 % (11.5-15.5); WBC 17.3 k/uL (3.8-10.6)
[2021-08-03 04:11] LABS: INR 1.1 (<1.2); Prothrombin Time 11.4 sec (9.0-12.0)
[2021-08-03 04:20] LABS: Magnesium 2.2 mg/dL (1.6-2.3)
[2021-08-03 04:21] LABS: ALT 38 U/L (4-49); AST 36 U/L (17-59); African American GFR (CKD) >90 (>60 ml/min/1.73 sqM); Albumin 2.5 g/dL (3.5-5.0); Alkaline Phosphatase 84 U/L (38-126); Anion Gap 7 mmol/L; Blood Urea Nitrogen 17 mg/dL (9-20); Calcium 7.6 mg/dL (8.4-10.2); Carbon Dioxide 20 mmol/L (22-30); Chloride 109 mmol/L (98-107); Glucose 142 mg/dL (74-99); Non-African American GFR(CKD) >90 (>60 ml/min/1.73 sqM); Potassium 4.1 mmol/L (3.5-5.1); Sodium 136 mmol/L (137-145); Total Bilirubin 0.6 mg/dL (0.2-1.3); Total Protein 5.1 g/dL (6.3-8.2)
[2021-08-03 04:39] LABS: C Reactive Protein 26.3 mg/dL (<1.0)
[2021-08-03 05:44] LABS: ABG Base Excess -2.8 mmol/L; ABG HCO3 23 mmol/L (21-25); ABG Oxygen Saturation 91.7 % (94-97); ABG PCO2 41 mmHg (35-45); ABG PH 7.36 (7.35-7.45); ABG PO2 64 mmHg (83-108); ABG TCO2 24 mmol/L (19-24); Allen Test Performed? Yes
[2021-08-03 05:51] LABS: Glucose,Whole Blood 135 mg/dL (75-99)
[2021-08-03] MEDS: ALBUTEROL HFA INHALER INHALATION PRN ×2 (07:53→12:30)
[2021-08-03] MEDS: ENOXAPARIN 40 MG/0.4 ML SYRINGE SQ SCH (08:19)
[2021-08-03] MEDS: DEXAMETHASONE SOD PHOSPHATE 10 MG/ML 1 ML VIAL IVP SCH (08:19)
[2021-08-03] MEDS: ASPIRIN 81 MG PO SCH ×2 (08:19→19:51)
[2021-08-03] MEDS: ZINC SULFATE 220 MG CAP PO SCH (08:19)
[2021-08-03] MEDS: CHOLECALCIFEROL 25 MCG (1000 IU) TABLET PO SCH (08:19)
[2021-08-03] MEDS: ASCORBIC ACID 500 MG TAB PO SCH (08:19)
[2021-08-03] MEDS: PANTOPRAZOLE 40 MG/10 ML VIAL IVP SCH (08:20)
[2021-08-03] MEDS: LOSARTAN 25 MG TAB PO SCH (08:20)
[2021-08-03] MEDS: POTASSIUM CHLORIDE ER 20 MEQ TAB.ER PO SCH (08:23)
--- NOTE | 2021-08-03 09:04 | CONS ---
CONSULTATION HISTORY OF PRESENT ILLNESS: Mr. Doyle is a 65-year-old male who was admitted to the hospital on July 28 with Covid 19 pneumonia. He was initially on the medical floor, but had worsening in his symptoms and required transfer to the ICU yesterday with intubation. Cardiology consultation was requested because of an elevation of his troponin. The patient's cardiac history is remarkable for the fact that he had an echocardiogram in June of last year that revealed a severely impaired systolic function with ejection fraction of 20-25 percent. Subsequently he underwent cardiac catheterization by Dr. Tamayo and was found to have moderate disease in the LAD and the RCA and underwent IFR of both vessels that showed non hemodynamically significant lesion. He underwent a repeat echocardiogram in October of this year and at that time his ejection fraction was reported 45-50 percent. The patient is intubated. He is in prone position. He is in sinus mechanism. He has a prior history of hyperlipidemia, hypertension, prior history of alcohol intake. He was admitted once in October and at that time was not taking any of his cardiac medication. A troponin was obtained during this admission that revealed mild elevation. The patient was not vaccinated in the past. His medication at the time of admission, including colchicine, losartan 25 mg daily, carvedilol 12.5 mg twice a day, Lipitor 40 mg daily and aspirin once a day. I am not quite sure about his compliance at the time of his admission based on the prior records. REVIEW OF SYSTEMS: Review of systems could not be obtained. PHYSICAL EXAMINATION: Blood pressure running in the low 100s, high 90s with a heart rate in the low 100 in sinus. He had a temperature of 100.9 axillary. No physical examination was performed to limit exposure. LAB DATA: Lab data revealed a hemoglobin of 13, white blood cell of 17.3. His D-dimer 9.45, BUN and creatinine 17 and 0.67, potassium 4.1. His troponin 0.320 and it was less than 0.012 on August 01. His NT proBNP is 2100. C-reactive protein of 26.3, which is much higher than it was 2 days ago. His EKG on presentation showed a sinus mechanism with nonspecific ST-T wave changes. His chest x-ray is consistent with bilateral infiltrate consistent with Covid 19 pneumonia. IMPRESSION: 1. Respiratory failure with Covid 19 pneumonia worsening requiring mechanical ventilation. The patient is in prone position. 2. History of cardiomyopathy, nonischemic with improvement on repeat echocardiogram in October. 3. History of coronary artery disease. Non obstructive according to cardiac catheterization in May of last year. 4. History of hypertension. 5. Hyperlipidemia. 6. Elevation of the troponin, most likely secondary to the hypoxemia not reflecting an acute ischemic event. 7. History of chronic back pain. 8. Prior history of alcohol intake according to the record in remission. RECOMMENDATIONS: From the cardiac standpoint, I see no evidence to suggest acute ischemic event. The elevation of troponin is secondary to the acute respiratory status. I will obtain echocardiogram to re-evaluate the left ventricular systolic function. At this time, his LISA inhibitor and beta ritesh are on hold because of the hypotension. Unfortunately the prognosis is quite poor. Thank you for this consult. We will follow with you. BALDO / ASHVIN: [id number] /
[2021-08-03] MEDS: ACETAMINOPHEN IV (For NPO) 1,000 MG in EMPTY BAG 1 BAG IVPB PRN (09:05)
[2021-08-03] MEDS: carvediloL 12.5 MG TAB PO SCH ×2 (09:06→16:26)
[2021-08-03] MEDS: SODIUM CHLORIDE 0.9% 1,000 ML IV SCH ×2 (09:08→19:51)
[2021-08-03] MEDS ORDERED: SODIUM CHLORIDE 0.9% 1,000 ML IV ONE (09:21)
[2021-08-03] MEDS ORDERED: CEFEPIME 2 GM in SODIUM CHLORIDE 0.9% 100 ML IVPB STA (09:28)
[2021-08-03] MEDS ORDERED: CEFEPIME 1 GM in SODIUM CHLORIDE 0.9% 50 ML IVPB SCH (09:30)
[2021-08-03 10:38] LABS: Appearance,Urine Clear (Clear); Bilirubin,Urine Negative (Negative); Blood,Urine Negative (Negative); Color,Urine Yellow; Glucose,Urine (UA) Negative (Negative); Ketones,Urine Negative (Negative); Leukocyte Esterase,Urine Negative (Negative); Nitrite,Urine Negative (Negative); Protein,Urine Trace (Negative); Specific Gravity,Urine 1.035 (1.001-1.035)
[2021-08-03] MEDS: CHLORHEXIDINE GLUCONATE 15 ML CUP MUCOUS MEM SCH ×2 (10:48→19:51)
[2021-08-03] MEDS: NOREPINEPHRINE 4 MG in SODIUM CHLORIDE 0.9% 250 ML IV SCH ×3 (11:01→19:51)
[2021-08-03] MEDS: INSULIN ASPART (NovoLOG) 100 UNIT/ML VIAL SQ SCH ×2 (11:05→18:24)
[2021-08-03 11:06] LABS: Glucose,Whole Blood 194 mg/dL (75-99)
[2021-08-03 11:35] LABS: Glucose,Whole Blood 188 mg/dL (75-99)
--- NOTE | 2021-08-03 11:50 | P.PN ---
Subjective Progress Note Date: 08/03/21 Principal diagnosis: Shortness of breath, hypoxia, COVID 19 This is 65-year-old male patient who has a history of hyperlipidemia, hypertension, anxiety, PTSD. He developed symptoms of increasing shortness of breath cough and congestion headache fever chills approximately 4 days ago. He tested positive for COVID-19 and received monoclonal antibodies by [facility]. He presented to the emergency room early this morning with worsening symptoms. The patient is not vaccinated. Chest x-ray shows bilateral patchy opacities consistent with COVID-19 pneumonia. White count 5.8. Hemoglobin 15.3. Lymphocytes 0.7. D-dimer 0.33. Sodium 134. Potassium 4.4. Creatinine 0.84. AST 56,. ALT 34. Troponins negative 3. ProBNP 54. He's been initiated on Decadron, Lovenox, vitamin supplements. He is seen today in consultation on the regular medical floor. He is already on by mouth liters high flow nasal cannula plus a nonrebreather mask. He is afebrile. Hemodynam ically stable. Dyspneic with minimal conversation. Dyspneic with minimal exertion. On 07/29/2021 patient seen in follow-up on medical surgical floor, he is currently on 15 L per high flow nasal cannula his pulse ox is 87-91%, he is afebrile, hemodynamically stable, patient has been repositioning self and then, on his left side right side, and he states he did try some prone positioning briefly.He was started on Baricitinib yesterday and he is on Decadron 6 mg daily in addition to prophylactic Lovenox. Today's labs have been reviewed, his white blood cell count is 10.7, hemoglobin is 14.4, he is actually excellent renal profile are within normal limits, he is d-dimer on admission was negative at 0.33. LDH and CRP levels are still pending, pro-calcitonin level was negative at 0.07. On 07/30/2021 patient is seen in follow-up on medical surgical floor, he remains on high flow oxygen with 15 L high flow nasal cannula and 100% nonrebreather mask, and his pulse ox of 92-94%, and in a patient was confused, and agitated at times, he was removing his oxygen desaturating, manager security and safety is outside the door, doing supervision. Patient is breathing fairly comfortably, he feels like his breathing is a little easier today, has occasional cough, at times she is able to bring up some yellow and green colored phlegm, no fever or chills, he was started on Baricitinib on 07/28/2021, he is also on Decadron 6 mg daily, and Lovenox 40 mg daily. Remains on IV fluids with 0.9 normal saline at a rate of 75 ML per hour, he is on COVID-19 vitamins. Labs reviewed, white blood cell count is 12.9, hemoglobin is 14.6, platelet count is 369, his d-dimer slightly increased and is currently at 0.60, electrolytes and renal profile are within normal limits. His LDH today is increased and is up to 1634, patient had 4 sets of negative troponin at less than 0.012, proBNP was 107, pro-calcitonin level was negative at 0.07 On 08/01/2021 patient seen in follow-up on medical surgical floor. Patient is currently on 15 L and 100% nonrebreather mask, he had a rapid response team call early this morning for a concern of intermittent pleuritic chest discomfort, and pain in bilateral lower extremities. In addition patient was noted to be intermittently removing his oxygen and desaturating. Currently he is awake, he is laying in bed, however he is crying, he is complaining of pain, however he is not able to say where the pain is. O2 saturation is 91%. His been afebrile, hemodynamically stable, lower extremity Dopplers were negative for DVT. Patient is currently on Baricitinib, he is on Lovenox 40 mg daily, and Decadron. He is receiving IV fluids at a rate of 75 ML per hour. He is d-dimer is 0.76, white count is 13.3, hemoglobin is 13.7, electrolyte and renal profile are within normal limits, he is LDH has improved since admission, and is down to 572, his troponins were negative 3, and CRP is improving and is down to 2.2. On 08/02/2021 patient seen in follow-up in the intensive care unit, this morning she was emergently transferred to the ICU for worsening hypoxia, he was mateo gently intubated and placed on mechanical ventilator, currently sedated, on assist-control mode of ventilation with a rate of 36, tidal volume is 450, FiO2 100% and PEEP of 10. Patient is quite dyssyncronous with the ventilator, Nimbex has been ordered, awaiting starting the paralytic. This pulse ox is only 82%, and the PEEP has been increased to 14, awaiting follow-up blood gas. He is in sinus mechanism tachycardic with a rate of 116. He is currently on 0.9 with seen at the rate of 75 ML per hour, Diprivan is 50 mics per kilo per minute. Patient was given Nimbex 10 mg IV push, he is better synchronize, his peak air pressures 34, plateau is 31. His chest x-ray from this morning shows ET tube slightly low, just above the giovani, and we will pull back the ET tube 2 or 3 cm. There are bilateral multifocal increased opacities with worsening findings and the right upper lung. CT angiogram of the chest from yesterday showed no acute pulmonary embolism within the limitation of the study. Today's labs are still pending. Patient continues on Baricitinib, Lovenox 40 mg, Decadron. Pickett catheter has been placed, patient is producing urine, he required a brief norepinephrine support. We'll place his Lasix on hold, will discontinue oral medications. On 08/03/2021 patient is seen in follow-up in the intensive care unit, he is currently intubated, sedated and paralyzed and proned. Vent settings this morning are assist-control with a rate of 36, tidal volume is 450, FiO2 of 90% and PEEP of 10. However his pulse ox is only 86-80%, this morning's blood gas shows pO2 of 64, pCO2 41, and pH of 7.36. His peak pressure is 32, plateau is 34. Patient is currently on 0.9 normal saline at 75 ML per hour, fentanyl is a 0.5 mics per kilo per minute, norepinephrine drip is a 0.03 mics per minute, Nimbex is a 2 mics per minute per minute, Diprivan is a 50 mics per kilo per minute. He was started on tube feedings with vital HP at a rate of 30 with a goal of 34. Chest x-ray today is still pending, patient's chest x-ray will be taken when he is turned on his back at 10:00 this morning. Today's labs show uptrending white count at 17.3, hemoglobin is 13, his INR is 1.1, his d-dimer is 9.45, sodium is 136, potassium is 4.1, CO2 is 20, BUN 17 creatinine 0.67, his troponin increased to 0.3-0, cardiology has been consulted, his proBNP was 2100, cortisol level was 19, TSH was 0.031, but free T4 was 1.17, within normal limits. Pro-calcitonin level came back at 1.31 suggesting presence of bacterial infection and patient is on sitting up which we will discontinue this mo rning. Urinalysis has been sent shows no evidence of infection, patient will be pancultured. And placed on cefepime. His recent CT angiogram of the chest showed no acute PE, post recent lower extremity Dopplers from 07/30/2021 showed no evidence of DVT. Patient did have fever elevation through the night, with a T-max of 106.8F, patient received antipyretics, this morning his temperature is 100.1F. Blood cultures will be sent lactic acid will be obtained. Objective - Vital Signs Vital signs: Vital Signs Temp 98.5 F 08/03/21 10:30 Pulse 92 08/03/21 10:45 Resp 36 H 08/03/21 10:45 BP 107/64 08/03/21 10:45 Pulse Ox 91 L 08/03/21 10:45 Intake & Output 08/02/21 08/03/21 08/03/21 18:59 06:59 18:59 Intake Total 3064.536 2300.124 554 Output Total 705 1020 220 Balance 2359.536 1280.124 334 Weight 109.4 kg 107.8 kg Intake: IV 2775 1108 434 ACETAMINOPHEN IV (For NPO 100 100 100 ) 1,000 mg In Empty Bag 1 bag @ 400 mls/hr IVPB Q6HR PRN Rx#:[id number] Cefepime 2 gm In Sodium 100 Chloride 0.9% 100 ml @ 200 mls/hr IVPB ONCE STA Rx#:[id number] Sodium Chloride 0.9% 1, 8595 975 225 000 ml @ 75 mls/hr IV . [id number] [facility] Rx#:[id number] pressure bag 33 9 Intake, IV Titration 269.536 762.124 Amount Cisatracurium 200 mg In 23.816 128.752 Sodium Chloride 0.9% 180 ml @ 1 MCG/KG/MIN 6.24 mls/hr IV .Q24H [facility] Rx#: [id number] Clevidipine Butyrate 25 1.167 mg In Empty Bag 1 bag @ 1 MG/HR 2 mls/hr IV .Q24H [facility] Rx#:[id number] Norepinephrine 4 mg In 195.138 Sodium Chloride 0.9% 250 ml @ 0.05 MCG/KG/MIN 20. 841 mls/hr IV .[id number] [facility] Rx#:[id number] Sodium Chloride 0.9% 1, 75 000 ml @ 75 mls/hr IV . [id number] [facility] Rx#:[id number] fentaNYL (PF). 1,000 mcg 72.193 In Sodium Chloride 0.9% 80 ml @ 0.5 MCG/KG/HR 5.2 mls/hr IV .[id number] [facility] Rx#:[id number] propofoL 1,000 mg In 170.72 364.874 Empty Bag 1 bag @ Titrate IV .Q0M [facility] Rx#: [id number] Tube Feeding 20 310 90 Other 120 30 Output: Urine 705 1020 220 Other: Voiding Method Indwelling Catheter Indwelling Catheter ABP, PAP, CO, CI - Last Documented Arterial Blood Pressure 112/61 - Exam GENERAL EXAM: Sedated, paralyzed and intubated, 65-year-old white male, in prone position, on assist-control with a rate of 36, tidal volume is 400, FiO2 100%, and PEEP of 14 HEAD: Normocephalic/atraumatic. EYES: Normal reaction of pupils, equal size. Conjunctiva pink, sclera white. NOSE: Clear with pink turbinates. THROAT: No erythema or exudates. NECK: No masses, no JVD, no thyroid enlargement, no adenopathy. CHEST: No chest wall deformity. Symmetrical expansion. LUNGS: Equal air entry with fine rales bilaterally CVS: Regular rate and rhythm, normal S1 and S2, no gallops, no murmurs, no rubs ABDOMEN: Soft, nontender. No hepatosplenomegaly, normal bowel sounds, no guarding or rigidity. EXTREMITIES: No clubbing, no edema, no cyanosis, 2+ pulses and upper and lower extremities. MUSCULOSKELETAL: Muscle strength and tone normal. SPINE: No scoliosis or deformity SKIN: No rashes CENTRAL NERVOUS SYSTEM: Sedated No focal deficits, tone is normal in all 4 extremities. - Labs CBC & Chem 7: 08/03/21 03:25 08/03/21 03:25 Labs: Abnormal Lab Results - Last 24 Hours (Table) 08/02/21 08/02/21 08/02/21 Range/Units 12:58 12:58 12:58 WBC 15.5 H (3.8-10.6) k/uL RBC 4.03 L (4.30-5.90) m/uL Plt Count 480 H (150-450) k/uL Neutrophils # 14.5 H (1.3-7.7) k/uL Lymphocytes # 0.5 L (1.0-4.8) k/uL Fibrinogen (200-500) mg/dL D-Dimer (<0.60) mg/L FEU ABG pO2 (83-108) mmHg ABG O2 Saturation (94-97) % Sodium (137-145) mmol/L Chloride 109 H (98-107) mmol/L Carbon Dioxide 20 L (22-30) mmol/L Glucose 138 H (74-99) mg/dL POC Glucose (mg/dL) (75-99) mg/dL Calcium 7.6 L (8.4-10.2) mg/dL Lactate Dehydrogenase (313-618) U/L Troponin I (0.000-0.034) ng/mL C-Reactive Protein (<1.0) mg/dL Total Protein 5.4 L (6.3-8.2) g/dL Albumin 2.7 L (3.5-5.0) g/dL Procalcitonin (0.02-0.09) ng/mL TSH 0.031 L (0.465-4.680) mIU/L Urine Protein (Negative) 08/02/21 08/02/21 08/03/21 Range/Units 12:58 23:36 03:25 WBC 17.3 H (3.8-10.6) k/uL RBC 4.05 L (4.30-5.90) m/uL Plt Count (150-450) k/uL Neutrophils # 16.6 H (1.3-7.7) k/uL Lymphocytes # 0.4 L (1.0-4.8) k/uL Fibrinogen (200-500) mg/dL D-Dimer (<0.60) mg/L FEU ABG pO2 (83-108) mmHg ABG O2 Saturation (94-97) % Sodium (137-145) mmol/L Chloride (98-107) mmol/L Carbon Dioxide (22-30) mmol/L Glucose (74-99) mg/dL POC Glucose (mg/dL) 131 H (75-99) mg/dL Calcium (8.4-10.2) mg/dL Lactate Dehydrogenase (313-618) U/L Troponin I (0.000-0.034) ng/mL C-Reactive Protein (<1.0) mg/dL Total Protein (6.3-8.2) g/dL Albumin (3.5-5.0) g/dL Procalcitonin 1.31 H (0.02-0.09) ng/mL TSH (0.465-4.680) mIU/L Urine Protein (Negative) 08/03/21 08/03/21 08/03/21 Range/Units 03:25 03:25 03:25 WBC (3.8-10.6) k/uL RBC (4.30-5.90) m/uL Plt Count (150-450) k/uL Neutrophils # (1.3-7.7) k/uL Lymphocytes # (1.0-4.8) k/uL Fibrinogen 720 H (200-500) mg/dL D-Dimer 9.45 H (<0.60) mg/L FEU ABG pO2 (83-108) mmHg ABG O2 Saturation (94-97) % Sodium (137-145) mmol/L Chloride (98-107) mmol/L Carbon Dioxide (22-30) mmol/L Glucose (74-99) mg/dL POC Glucose (mg/dL) (75-99) mg/dL Calcium (8.4-10.2) mg/dL Lactate Dehydrogenase 1277 H (313-618) U/L Troponin I 0.320 H* (0.000-0.034) ng/mL C-Reactive Protein 26.3 H (<1.0) mg/dL Total Protein (6.3-8.2) g/dL Albumin (3.5-5.0) g/dL Procalcitonin (0.02-0.09) ng/mL TSH (0.465-4.680) mIU/L Urine Protein (Negative) 08/03/21 08/03/21 08/03/21 Range/Units 03:25 05:38 05:50 WBC (3.8-10.6) k/uL RBC (4.30-5.90) m/uL Plt Count (150-450) k/uL Neutrophils # (1.3-7.7) k/uL Lymphocytes # (1.0-4.8) k/uL Fibrinogen (200-500) mg/dL D-Dimer (<0.60) mg/L FEU ABG pO2 64 L (83-108) mmHg ABG O2 Saturation 91.7 L (94-97) % Sodium 136 L (137-145) mmol/L Chloride 109 H (98-107) mmol/L Carbon Dioxide 20 L (22-30) mmol/L Glucose 142 H (74-99) mg/dL POC Glucose (mg/dL) 135 H (75-99) mg/dL Calcium 7.6 L (8.4-10.2) mg/dL Lactate Dehydrogenase (313-618) U/L Troponin I (0.000-0.034) ng/mL C-Reactive Protein (<1.0) mg/dL Total Protein 5.1 L (6.3-8.2) g/dL Albumin 2.5 L (3.5-5.0) g/dL Procalcitonin (0.02-0.09) ng/mL TSH (0.465-4.680) mIU/L Urine Protein (Negative) 08/03/21 08/03/21 Range/Units 09:40 11:03 WBC (3.8-10.6) k/uL RBC (4.30-5.90) m/uL Plt Count (150-450) k/uL Neutrophils # (1.3-7.7) k/uL Lymphocytes # (1.0-4.8) k/uL Fibrinogen (200-500) mg/dL D-Dimer (<0.60) mg/L FEU ABG pO2 (83-108) mmHg ABG O2 Saturation (94-97) % Sodium (137-145) mmol/L Chloride (98-107) mmol/L Carbon Dioxide (22-30) mmol/L Glucose (74-99) mg/dL POC Glucose (mg/dL) 194 H (75-99) mg/dL Calcium (8.4-10.2) mg/dL Lactate Dehydrogenase (313-618) U/L Troponin I (0.000-0.034) ng/mL C-Reactive Protein (<1.0) mg/dL Total Protein (6.3-8.2) g/dL Albumin (3.5-5.0) g/dL Procalcitonin (0.02-0.09) ng/mL TSH (0.465-4.680) mIU/L Urine Protein Trace H (Negative) Assessment and Plan Plan: Assessment: #1. Acute hypoxic respiratory failure is suspected to COVID-19 pneumonia, patient presented with 5 day history of symptom onset on 07/24/2021. He status post monoclonal antibody infusion. Patient isn't nonvaccinated adult against COVID-19. Currently on 15 L high flow nasal cannula and nonrebreather mask, started on Baricitinib on 07/28/2021. Transfer to the intensive care unit on 08/02/2021 and emergently intubated. On 08/03/2021 patient remains sedated, paralyzed and intubated and critically ill, on FiO2 of 90% and PEEP of 10. Tolerating proning #2. Suspect bacterial infection, sepsis, Baricitinib stopped this morning on 08/03/2021, cefepime was added for empiric antibiotic coverage, patient will be pancultured #3. Significantly elevated d-dimer today up to 9.45. CT angiogram of chest was a limited study however showed no definitive pulmonary embolism, lower extremity Dopplers were negative for DVT. We will obtain repeat lower extremity Dopplers #4. Troponin elevation, please see cardiology consultation, this could possibly be related to profound hypoxia #5. Chronic systolic CHF #6. Hypertension #7. History of coronary artery disease #8. Hyperlipidemia #9. Chronic back pain #10. History of EtOH use, in remission #11. History of anxiety and PTSD #12. Nonsmoker Plan: Continue current vent settings, increased the PEEP up to 14, rate of 36, tidal volume of 450, and FiO2 of 100% Continue with prone position up to 16 hours daily Stop Baricitinib, obtain pancultures Initiate cefepime Obtain lactic acid, give 1 liter bolus Patient is to be properly sedated and paralyzed, use Nimbex and Propofol Continue Lovenox, continue Decadron Continue nutritional support We will obtain repeat lower extremity Dopplers Continue COVID-19 multivitamins Overall prognosis is extremely guarded We'll continue to follow I performed a history & physical examination of the patient and discussed their management with my nurse practitioner, Katie Snider. I reviewed the nurse practitioner's note and agree with the documented findings and plan of care. Lung sounds are positive for scattered rales throughout the lung palacio. The findings and the impression was discussed with the patient. I attest to the documentation by the nurse practitioner. Time with Patient: Greater than 30
--- NOTE | 2021-08-03 12:04 | XR ---
EXAMINATION TYPE: XR chest 1V portable DATE OF EXAM: 08/03/2021 CLINICAL HISTORY: Difficulty breathing and covid progress study. TECHNIQUE: Single AP portable semiupright view of the chest is obtained. COMPARISON: Chest x-ray from one day earlier and older studies. FINDINGS: New nasogastric tube projects below diaphragm. Stable left subclavian central venous catheter. Stable positioning of endotracheal tube. Bilateral multifocal and confluent opacities greatest in the left right lungs are redemonstrated. Fin dings more prominent in the right mid to lower lung on current study versus one day earlier. Cardiac silhouette size stable and within normal limits. Multilevel spurring in the thoracic spine redemonstr ated. IMPRESSION: As above.
--- NOTE | 2021-08-03 12:54 | P.PN ---
Subjective Progress Note Date: 08/03/21 This is a 65-year-old male well-known to me. He had been and getting sick last Friday. He was tested for COVID-19 and was positive. Unfortunately this patient is not vaccinated. He did receive monoclonal antibody infusion. On Friday he was initiated on Decadron and colchicine due to a obesity, history of smoking and chronic pain. He presented to the emergency room and [facility] and was found to 19 pneumonia on chest x-ray. KUB due to increased shortness of breath. He was found to have a pulse oximetry of 84 in the emergency room. He is currently on a 50% nonrebreather. His pulse oximeter is improved, but he does continue to short of breath this level. Initial laboratory studies were essentially normal. Diabetes 5 Hemoglobin 53. There Is No Significant Shift. 07/30/2021 maintained on 15 L high flow nasal cannula and nonrebreather mask, maintaining O2 sats of 90-94%. Continues on Covid cocktail,Baricitinib. Pro- calcitonin negative. Requiring sitter at bedside to facilitate patient leaving his oxygen on. Renal function within normal limits. Inflammatory markers incr eased. 07/31/2021 maintained on Covid cocktail, Baricitinib. continues on 15 L high flow nasal cannula/nonrebreather mask maintaining O2 sats in the 90s. Chest x- ray reporting interstitial and alveolar infiltrates with small effusions stable. Afebrile. Requiring safety professional to remind patient from refraining to pull off his mask. Dopplers reported negative for bilateral lower extremities DVT. 08/01/2021 respiratory status unchanged. The patient alert and oriented 3,requires sitter at bedside to remind him to leave his mask on. Afebrile. Maintained on Covid cocktail. 08/02/2021 respiratory status worsened, unable to tolerate BiPAP and transferred to the ICU, requiring emergent intubation. Maintained on 100% FiO2/+18 of PEEP. Chest x-ray reporting increased bilateral multifocal opacities-consistent with COVID-19 infection progression. CTA reported negative for acute PE.Continues on Nimbex, diprovan, fentanyl. On and off Levophed. Currently on third liter of IV fluids. Mild tachycardia, borderline hypotension. Temperature 102.6, WBC 13.34, hemoglobin 13.7, platelets 455. D-dimer 0.76, ferritin 656, LDH 572 CRP 2.20. ABGs pending. 08/03/2021 FiO2 90/+10 of PEEP. Maintained on diprovan, on Nimbex, fentanyl, norepinephrine. Prone positioned. Currently maintaining O2 sats in the high 80s. T-max 106.8 currently 100.1. WBC trending up, 17.3. Pro-calcitonin elevated, 1.31. Pancultured/Lactic acid pending. Baricitinib discontinued with Cefepime initiated .Inflammatory markers increased with significant elevation of d-dimer, 9.45. Cardiology consult in place, Troponin increased 0.320. Objective - Vital Signs Vital signs: Vital Signs Temp 98.5 F 08/03/21 10:30 Pulse 92 08/03/21 10:45 Resp 36 H 08/03/21 10:45 BP 107/64 08/03/21 10:45 Pulse Ox 91 L 08/03/21 10:45 Intake & Output 08/02/21 08/03/21 08/03/21 18:59 06:59 18:59 Intake Total 3064.536 2300.124 712.862 Output Total 705 1020 220 Balance 2359.536 1280.124 492.862 Weight 109.4 kg 107.8 kg Intake: IV 2775 1108 434 ACETAMINOPHEN IV (For NPO 100 100 100 ) 1,000 mg In Empty Bag 1 bag @ 400 mls/hr IVPB Q6HR PRN Rx#:[id number] Cefepime 2 gm In Sodium 100 Chloride 0.9% 100 ml @ 200 mls/hr IVPB ONCE STA Rx#:[id number] Sodium Chloride 0.9% 1, 2675 975 225 000 ml @ 75 mls/hr IV . [id number] [facility] Rx#:[id number] pressure bag 33 9 Intake, IV Titration 269.536 762.124 158.862 Amount Cisatracurium 200 mg In 23.816 128.752 Sodium Chloride 0.9% 180 ml @ 1 MCG/KG/MIN 6.24 mls/hr IV .Q24H [facility] Rx#: [id number] Clevidipine Butyrate 25 1.167 mg In Empty Bag 1 bag @ 1 MG/HR 2 mls/hr IV .Q24H [facility] Rx#:[id number] Norepinephrine 4 mg In 195.138 58.862 Sodium Chloride 0.9% 250 ml @ 0.05 MCG/KG/MIN 20. 841 mls/hr IV .[id number] [facility] Rx#:[id number] Sodium Chloride 0.9% 1, 75 000 ml @ 75 mls/hr IV . [id number] [facility] Rx#:[id number] fentaNYL (PF). 1,000 mcg 72.193 In Sodium Chloride 0.9% 80 ml @ 0.5 MCG/KG/HR 5.2 mls/hr IV .[id number] [facility] Rx#:[id number] propofoL 1,000 mg In 170.72 364.874 100 Empty Bag 1 bag @ Titrate IV .Q0M [facility] Rx#: [id number] Tube Feeding 20 310 90 Other 120 30 Output: Urine 705 1020 220 Other: Voiding Method Indwelling Catheter Indwelling Catheter ABP, PAP, CO, CI - Last Documented Arterial Blood Pressure 112/61 - Exam Limited exam on a covid patient,intubated: GENERAL: Fatigued thin male, intubated ,sedated, paralyzed HEAD: Atraumatic, normocephalic. HEART: Telemetry sinus rhythm-sinus tachycardia EXTREMITIES: Normal range of motion, no edema NEUROLOGICAL: Unable to assess, patient on mechanical ventilator, sedated and paralyzed - Labs CBC & Chem 7: 08/03/21 03:25 08/03/21 03:25 Labs: Abnormal Lab Results - Last 24 Hours (Table) 08/02/21 08/02/21 08/02/21 Range/Units 12:58 12:58 12:58 WBC 15.5 H (3.8-10.6) k/uL RBC 4.03 L (4.30-5.90) m/uL Plt Count 480 H (150-450) k/uL Neutrophils # 14.5 H (1.3-7.7) k/uL Lymphocytes # 0.5 L (1.0-4.8) k/uL Fibrinogen (200-500) mg/dL D-Dimer (<0.60) mg/L FEU ABG pO2 (83-108) mmHg ABG O2 Saturation (94-97) % Sodium (137-145) mmol/L Chloride 109 H (98-107) mmol/L Carbon Dioxide 20 L (22-30) mmol/L Glucose 138 H (74-99) mg/dL POC Glucose (mg/dL) (75-99) mg/dL Calcium 7.6 L (8.4-10.2) mg/dL Lactate Dehydrogenase (313-618) U/L Troponin I (0.000-0.034) ng/mL C-Reactive Protein (<1.0) mg/dL Total Protein 5.4 L (6.3-8.2) g/dL Albumin 2.7 L (3.5-5.0) g/dL Procalcitonin (0.02-0.09) ng/mL TSH 0.031 L (0.465-4.680) mIU/L Urine Protein (Negative) 08/02/21 08/02/21 08/03/21 Range/Units 12:58 23:36 03:25 WBC 17.3 H (3.8-10.6) k/uL RBC 4.05 L (4.30-5.90) m/uL Plt Count (150-450) k/uL Neutrophils # 16.6 H (1.3-7.7) k/uL Lymphocytes # 0.4 L (1.0-4.8) k/uL Fibrinogen (200-500) mg/dL D-Dimer (<0.60) mg/L FEU ABG pO2 (83-108) mmHg ABG O2 Saturation (94-97) % Sodium (137-145) mmol/L Chloride (98-107) mmol/L Carbon Dioxide (22-30) mmol/L Glucose (74-99) mg/dL POC Glucose (mg/dL) 131 H (75-99) mg/dL Calcium (8.4-10.2) mg/dL Lactate Dehydrogenase (313-618) U/L Troponin I (0.000-0.034) ng/mL C-Reactive Protein (<1.0) mg/dL Total Protein (6.3-8.2) g/dL Albumin (3.5-5.0) g/dL Procalcitonin 1.31 H (0.02-0.09) ng/mL TSH (0.465-4.680) mIU/L Urine Protein (Negative) 08/03/21 08/03/21 08/03/21 Range/Units 03:25 03:25 03:25 WBC (3.8-10.6) k/uL RBC (4.30-5.90) m/uL Plt Count (150-450) k/uL Neutrophils # (1.3-7.7) k/uL Lymphocytes # (1.0-4.8) k/uL Fibrinogen 720 H (200-500) mg/dL D-Dimer 9.45 H (<0.60) mg/L FEU ABG pO2 (83-108) mmHg ABG O2 Saturation (94-97) % Sodium (137-145) mmol/L Chloride (98-107) mmol/L Carbon Dioxide (22-30) mmol/L Glucose (74-99) mg/dL POC Glucose (mg/dL) (75-99) mg/dL Calcium (8.4-10.2) mg/dL Lactate Dehydrogenase 1277 H (313-618) U/L Troponin I 0.320 H* (0.000-0.034) ng/mL C-Reactive Protein 26.3 H (<1.0) mg/dL Total Protein (6.3-8.2) g/dL Albumin (3.5-5.0) g/dL Procalcitonin (0.02-0.09) ng/mL TSH (0.465-4.680) mIU/L Urine Protein (Negative) 08/03/21 08/03/21 08/03/21 Range/Units 03:25 05:38 05:50 WBC (3.8-10.6) k/uL RBC (4.30-5.90) m/uL Plt Count (150-450) k/uL Neutrophils # (1.3-7.7) k/uL Lymphocytes # (1.0-4.8) k/uL Fibrinogen (200-500) mg/dL D-Dimer (<0.60) mg/L FEU ABG pO2 64 L (83-108) mmHg ABG O2 Saturation 91.7 L (94-97) % Sodium 136 L (137-145) mmol/L Chloride 109 H (98-107) mmol/L Carbon Dioxide 20 L (22-30) mmol/L Glucose 142 H (74-99) mg/dL POC Glucose (mg/dL) 135 H (75-99) mg/dL Calcium 7.6 L (8.4-10.2) mg/dL Lactate Dehydrogenase (313-618) U/L Troponin I (0.000-0.034) ng/mL C-Reactive Protein (<1.0) mg/dL Total Protein 5.1 L (6.3-8.2) g/dL Albumin 2.5 L (3.5-5.0) g/dL Procalcitonin (0.02-0.09) ng/mL TSH (0.465-4.680) mIU/L Urine Protein (Negative) 08/03/21 08/03/21 08/03/21 Range/Units 09:40 11:03 11:33 WBC (3.8-10.6) k/uL RBC (4.30-5.90) m/uL Plt Count (150-450) k/uL Neutrophils # (1.3-7.7) k/uL Lymphocytes # (1.0-4.8) k/uL Fibrinogen (200-500) mg/dL D-Dimer (<0.60) mg/L FEU ABG pO2 (83-108) mmHg ABG O2 Saturation (94-97) % Sodium (137-145) mmol/L Chloride (98-107) mmol/L Carbon Dioxide (22-30) mmol/L Glucose (74-99) mg/dL POC Glucose (mg/dL) 194 H 188 H (75-99) mg/dL Calcium (8.4-10.2) mg/dL Lactate Dehydrogenase (313-618) U/L Troponin I (0.000-0.034) ng/mL C-Reactive Protein (<1.0) mg/dL Total Protein (6.3-8.2) g/dL Albumin (3.5-5.0) g/dL Procalcitonin (0.02-0.09) ng/mL TSH (0.465-4.680) mIU/L Urine Protein Trace H (Negative) Assessment and Plan Assessment: Acute COVID-19 pneumonia, status post monoclonal antibody infusion, un- vaccinated. Sepsis secondary to the above and suspected underlying bacterial infection, elevated pro calcitonin, pancultured Acute hypoxic respiratory failure, mechanical ventilator-dependent Troponin, elevated, possibly related to the above ,cardiology following Former nicotine dependence Daily alcohol consumption Essential hypertension Long-term use of opiate analgesic CAD Chronic congestive heart failure, systolic dysfunction Plan: Continue current medication regime ,monitoring and symptomatic treatment. Covid cocktail. Echo pending. Lower extremity Dopplers ordered.Cardiology consult in place, recommendations pending. ICU management as per child health associate. Prognosis guarded given multiple complex medical issues. The impression and plan of care has been dictated as directed. : I performed a history and examination of this patient, discussed the same with the dictator. I agree with the dictator's note ,documented as a scribe. Any additional findings or plans will be noted.
[2021-08-03] MEDS: CISATRACURIUM 200 MG in SODIUM CHLORIDE 0.9% 180 ML IV SCH (14:48)
[2021-08-03] MEDS: fentaNYL (PF). 1,000 MCG in SODIUM CHLORIDE 0.9% 80 ML IV SCH (15:38)
[2021-08-03] MEDS: CEFEPIME 2 GM in SODIUM CHLORIDE 0.9% 100 ML IVPB SCH (16:53)
[2021-08-03] MEDS: ATORVASTATIN 40 MG TAB PO SCH (16:53)
[2021-08-03 17:53] LABS: Glucose,Whole Blood 202 mg/dL (75-99)
[2021-08-03 23:52] LABS: Glucose,Whole Blood 198 mg/dL (75-99)
[2021-08-04] MEDS: CEFEPIME 2 GM in SODIUM CHLORIDE 0.9% 100 ML IVPB SCH ×4 (00:14→23:41)
[2021-08-04] MEDS: INSULIN ASPART (NovoLOG) 100 UNIT/ML VIAL SQ SCH ×5 (00:14→23:41)
[2021-08-04] MEDS: CLEVIDIPINE BUTYRATE 25 MG in EMPTY BAG 1 BAG IV SCH ×2 (00:16→23:41)
[2021-08-04 04:02] LABS: Basophils % (A) 0 %; Eosinophils % (A) 0 %; HCT 37.1 % (39.0-53.0); Lymphocytes # (A) 0.5 k/uL (1.0-4.8); Lymphocytes % (A) 2 %; MCH 32.7 pg (25.0-35.0); MCHC 32.4 g/dL (31.0-37.0); MCV 100.9 fL (80.0-100.0); Mean Platelet Volume 7.7; Monocytes # (A) 0.3 k/uL (0-1.0); Monocytes % (A) 2 %; Neutrophils # (A) 18.5 k/uL (1.3-7.7); Neutrophils % (A) 96 %; Platelet Count 383 k/uL (150-450); RBC 3.68 m/uL (4.30-5.90); RDW 13.3 % (11.5-15.5); WBC 19.4 k/uL (3.8-10.6)
[2021-08-04 04:18] LABS: ALT 31 U/L (4-49); AST 24 U/L (17-59); African American GFR (CKD) >90 (>60 ml/min/1.73 sqM); Albumin 2.2 g/dL (3.5-5.0); Alkaline Phosphatase 84 U/L (38-126); Anion Gap 5 mmol/L; Blood Urea Nitrogen 16 mg/dL (9-20); Calcium 7.5 mg/dL (8.4-10.2); Carbon Dioxide 22 mmol/L (22-30); Chloride 112 mmol/L (98-107); Glucose 234 mg/dL (74-99); Non-African American GFR(CKD) >90 (>60 ml/min/1.73 sqM); Sodium 139 mmol/L (137-145); Total Bilirubin 0.2 mg/dL (0.2-1.3); Total Protein 4.6 g/dL (6.3-8.2)
[2021-08-04] MEDS: CISATRACURIUM 200 MG in SODIUM CHLORIDE 0.9% 180 ML IV SCH ×2 (05:44→19:50)
[2021-08-04 05:46] LABS: Glucose,Whole Blood 212 mg/dL (75-99)
[2021-08-04 06:10] LABS: ABG Base Excess -1.7 mmol/L; ABG HCO3 25 mmol/L (21-25); ABG Oxygen Saturation 97.8 % (94-97); ABG PCO2 50 mmHg (35-45); ABG PO2 108 mmHg (83-108); ABG TCO2 26 mmol/L (19-24)
[2021-08-04 06:19] LABS: Allen Test Performed? no
[2021-08-04] MEDS: carvediloL 12.5 MG TAB PO SCH ×2 (06:51→17:08)
[2021-08-04] MEDS ORDERED: fentaNYL (PF) 50 MCG/ML 20 ML VIAL ONE ×2 (07:22→19:46)
[2021-08-04] MEDS: fentaNYL (PF). 1,000 MCG in SODIUM CHLORIDE 0.9% 80 ML IV SCH ×3 (07:23→19:49)
[2021-08-04] MEDS: LOSARTAN 25 MG TAB PO SCH (08:20)
[2021-08-04] MEDS: POTASSIUM CHLORIDE ER 20 MEQ TAB.ER PO SCH (08:20)
[2021-08-04] MEDS: ZINC SULFATE 220 MG CAP PO SCH (08:20)
[2021-08-04] MEDS: DEXAMETHASONE SOD PHOSPHATE 10 MG/ML 1 ML VIAL IVP SCH (08:20)
[2021-08-04] MEDS: ASPIRIN 81 MG PO SCH ×2 (08:20→19:49)
[2021-08-04] MEDS: CHOLECALCIFEROL 25 MCG (1000 IU) TABLET PO SCH (08:20)
[2021-08-04] MEDS: PANTOPRAZOLE 40 MG/10 ML VIAL IVP SCH (08:20)
[2021-08-04] MEDS: CHLORHEXIDINE GLUCONATE 15 ML CUP MUCOUS MEM SCH ×2 (08:20→19:49)
[2021-08-04] MEDS: ASCORBIC ACID 500 MG TAB PO SCH (08:20)
[2021-08-04] MEDS: ENOXAPARIN 40 MG/0.4 ML SYRINGE SQ SCH (08:21)
[2021-08-04] MEDS: ALBUTEROL HFA INHALER INHALATION PRN ×2 (09:51→13:17)
--- NOTE | 2021-08-04 09:54 | P.PN ---
Subjective Progress Note Date: 08/04/21 Principal diagnosis: Respiratory failure. Shortness of breath, hypoxia, COVID 19 This is 65-year-old male patient who has a history of hyperlipidemia, hypertension, anxiety, PTSD. He developed symptoms of increasing shortness of breath cough and congestion headache fever chills approximately 4 days ago. He tested positive for COVID-19 and received monoclonal antibodies by [facility]. He presented to the emergency room early this morning with worsening symptoms. The patient is not vaccinated. Chest x-ray shows bilateral patchy opacities consistent with COVID-19 pneumonia. White count 5.8. Hemoglobin 15.3. Lymphocytes 0.7. D-dimer 0.33. Sodium 134. Potassium 4.4. Creatinine 0.84. AST 56,. ALT 34. Troponins negative 3. ProBNP 54. He's been initia liza on Decadron, Lovenox, vitamin supplements. He is seen today in consultation on the regular medical floor. He is already on by mouth liters high flow nasal cannula plus a nonrebreather mask. He is afebrile. Hemodynamically stable. Dyspneic with minimal conversation. Dyspneic with minimal exertion. On 07/29/2021 patient seen in follow-up on medical surgical floor, he is currently on 15 L per high flow nasal cannula his pulse ox is 87-91%, he is afebrile, hemodynamically stable, patient has been repositioning self and then, on his left side right side, and he states he did try some prone positioning briefly.He was started on Baricitinib yesterday and he is on Decadron 6 mg daily in addition to prophylactic Lovenox. Today's labs have been reviewed, his white blood cell count is 10.7, hemoglobin is 14.4, he is actually excellent renal profile are within normal limits, he is d-dimer on admission was negative at 0.33. LDH and CRP levels are still pending, pro-calcitonin level was negative at 0.07. On 07/30/2021 patient is seen in follow-up on medical surgical floor, he remains on high flow oxygen with 15 L high flow nasal cannula and 100% nonrebreather mask, and his pulse ox of 92-94%, and in a patient was confused, and agitated at times, he was removing his oxygen desaturating, safety counselor is outside the door, doing supervision. Patient is breathing fairly comfortably, he feels like his breathing is a little easier today, has occasional cough, at times she is able to bring up some yellow and green colored phlegm, no fever or chills, he was started on Baricitinib on 07/28/2021, he is also on Decadron 6 mg daily, and Lovenox 40 mg daily. Remains on IV fluids with 0.9 normal saline at a rate of 75 ML per hour, he is on COVID-19 vitamins. Labs reviewed, white blood cell count is 12.9, hemoglobin is 14.6, platelet count is 369, his d-dimer slightly increased and is currently at 0.60, electrolytes and renal profile are within normal limits. His LDH today is increased and is up to 1634, patient had 4 sets of negative troponin at less than 0.012, proBNP was 107, pro-calcitonin level was negative at 0.07 On 08/01/2021 patient seen in follow-up on medical surgical floor. Patient is currently on 15 L and 100% nonrebreather mask, he had a rapid response team call early this morning for a concern of intermittent pleuritic chest discomfort, and pain in bilateral lower extremities. In addition patient was noted to be intermittently removing his oxygen and desaturating. Currently he is awake, he is laying in bed, however he is crying, he is complaining of pain, however he is not able to say where the pain is. O2 saturation is 91%. His been afebrile, hemodynamically stable, lower extremity Dopplers were negative for DVT. Patient is currently on Baricitinib, he is on Lovenox 40 mg daily, and Decadron. He is receiving IV fluids at a rate of 75 ML per hour. He is d-dimer is 0.76, white count is 13.3, hemoglobin is 13.7, electrolyte and renal profile are within normal limits, he is LDH has improved since admission, and is down to 572, his troponins were negative 3, and CRP is improving and is down to 2.2. On 08/02/2021 patient seen in follow-up in the intensive care unit, this morning she was emergently transferred to the ICU for worsening hypoxia, he was emergently intubated and placed on mechanical ventilator, currently sedated, on assist-control mode of ventilation with a rate of 36, tidal volume is 450, FiO2 100% and PEEP of 10. Patient is quite dyssyncronous with the ventilator, Nimbex has been ordered, awaiting starting the paralytic. This pulse ox is only 82%, and the PEEP has been increased to 14, awaiting follow-up blood gas. He is in sinus mechanism tachycardic with a rate of 116. He is currently on 0.9 with seen at the rate of 75 ML per hour, Diprivan is 50 mics per kilo per minute. Patient was given Nimbex 10 mg IV push, he is better synchronize, his peak air pressures 34, plateau is 31. His chest x-ray from this morning shows ET tube slightly low, just above the giovani, and we will pull back the ET tube 2 or 3 cm. There are bilateral multifocal increased opacities with worsening findings and the right upper lung. CT angiogram of the chest from yesterday showed no acute pulmonary embolism within the limitation of the study. Today's labs are still pending. Patient continues on Baricitinib, Lovenox 40 mg, Decadron. Pickett catheter has been placed, patient is producing urine, he required a brief norepinephrine support. We'll place his Lasix on hold, will discontinue oral medications. On 08/03/2021 patient is seen in follow-up in the intensive care unit, he is currently intubated, sedated and paralyzed and proned. Vent settings this morning are assist-control with a rate of 36, tidal volume is 450, FiO2 of 90% and PEEP of 10. However his pulse ox is only 86-80%, this morning's blood gas shows pO2 of 64, pCO2 41, and pH of 7.36. His peak pressure is 32, plateau is 34. Patient is currently on 0.9 normal saline at 75 ML per hour, fentanyl is a 0.5 mics per kilo per minute, norepinephrine drip is a 0.03 mics per minute, Nimbex is a 2 mics per minute per minute, Diprivan is a 50 mics per kilo per minute. He was started on tube feedings with vital HP at a rate of 30 with a goal of 34. Chest x-ray today is still pending, patient's chest x-ray will be taken when he is turned on his back at 10:00 this morning. Today's labs show uptrending white count at 17.3, hemoglobin is 13, his INR is 1.1, his d-dimer is 9.45, sodium is 136, potassium is 4.1, CO2 is 20, BUN 17 creatinine 0.67, his troponin increased to 0.3-0, cardiology has been consulted, his proBNP was 2100, cortisol level was 19, TSH was 0.031, but free T4 was 1.17, within normal limits. Pro-calcitonin level came back at 1.31 suggesting presence of bacterial infection and patient is on sitting up which we will discontinue this morning. Urinalysis has been sent shows no evidence of infection, patient will be pancultured. And placed on cefepime. His recent CT angiogram of the chest showed no acute PE, post recent lower extremity Dopplers from 07/30/2021 showed no evidence of DVT. Patient did have fever elevation through the night, with a T-max of 106.8F, patient received antipyretics, this morning his temperature is 100.1F. Blood cultures will be sent lactic acid will be obtained. Progress note dated 08/04/2021. The patient remains in the intensive care unit, in seen in room 266. Currently, he's on the volume assist control mode, rate 36, tidal volume 450, FiO2 100%, and PEEP of 14. Blood gases show a PaO2 of 108, pCO2 of 50, and pH is 7.3. The patient's on Nimbex at 2 mcg/kg/m, fall at 50 mcg/kg/m, fentanyl at 1.5 mcg/kg/h, saline at 75 mL an hour and vital high protein at 30 mL an hour. That is goal. We will attempt to wean the FiO2. The PEEP was increased from 14 up to 18 cm water and we'll add hydrocortisone 50 mg every 6 hours. The patient's cortisol level was a bit low. White count 19.4, hemoglobin 12, hematocrit 37.1, platelet count 383,000. Sodium 139, potassium 4, chlorides 112, CO2 22, anion gap 5, BUN 16, creatinine 0.47. Albumin is 2.2. Chest x-ray shows diffuse bilateral infiltrates, and CT angiogram was negative for pulmonary embolism. Objective - Vital Signs Vital signs: Vital Signs Temp 98.4 F 08/04/21 04:00 Pulse 80 08/04/21 07:15 Resp 36 H 08/04/21 07:15 BP 111/73 08/03/21 18:15 Pulse Ox 95 08/04/21 07:15 Intake & Output 08/03/21 08/04/21 08/04/21 18:59 06:59 18:59 Intake Total 2224.236 2269.227 236.260 Output Total 895 950 450 Balance 4109.055 9477.227 -213.740 Weight 107.8 kg Intake: IV 1158 936 78 ACETAMINOPHEN IV (For NPO 100 ) 1,000 mg In Empty Bag 1 bag @ 400 mls/hr IVPB Q6HR PRN Rx#:[id number] Cefepime 2 gm In Sodium 200 Chloride 0.9% 100 ml @ 200 mls/hr IVPB ONCE STA Rx#:[id number] Sodium Chloride 0.9% 1, 825 900 75 000 ml @ 75 mls/hr IV . [id number] [facility] Rx#:[id number] pressure bag 33 36 3 Intake, IV Titration 632.236 787.227 120.260 Amount Cisatracurium 200 mg In 200 186.368 Sodium Chloride 0.9% 180 ml @ 1 MCG/KG/MIN 6.24 mls/hr IV .Q24H [facility] Rx#: [id number] Norepinephrine 4 mg In 58.862 255.925 Sodium Chloride 0.9% 250 ml @ 0.05 MCG/KG/MIN 20. 841 mls/hr IV .[id number] [facility] Rx#:[id number] fentaNYL (PF). 1,000 mcg 84.76 77.653 22.347 In Sodium Chloride 0.9% 80 ml @ 0.5 MCG/KG/HR 5.2 mls/hr IV .[id number] [facility] Rx#:[id number] propofoL 1,000 mg In 288.614 267.281 97.913 Empty Bag 1 bag @ Titrate IV .Q0M [facility] Rx#: [id number] Tube Feeding 374 456 38 Other 60 90 Output: Urine 895 950 450 Other: Voiding Method Indwelling Catheter Indwelling Catheter ABP, PAP, CO, CI - Last Documented Arterial Blood Pressure 127/68 - Exam No acute distress, sedated and paralyzed. He's got an orally placed endotracheal tube and NG tube. HEENT examination is grossly unremarkable. Neck supple. Full range of motion. No adenopathy thyromegaly or neck vein distention. Cardiovascular examination reveals regular rhythm rate. S1-S2 normal. No S3 or S4. No discernible murmur noted. Heart sounds are distant. Heart rate 80 bpm. Lungs reveal diffuse bilateral rhonchi as well as bilateral crackles. Breath sounds equal bilaterally. There are no wheezes. Saturations are 95%. Abdomen soft bowel sounds are heard. No masses or tenderness. Extremities are intact. No cyanosis clubbing or edema. Skin is without rash or lesion. Neurologic examination cannot be adequately assessed as the patient's currently sedated and paralyzed. - Labs CBC & Chem 7: 08/04/21 03:50 08/04/21 03:50 Labs: Abnormal Lab Results - Last 24 Hours (Table) 08/03/21 08/03/21 08/03/21 Range/Units 03:25 09:40 11:03 WBC (3.8-10.6) k/uL RBC (4.30-5.90) m/uL Hgb (13.0-17.5) gm/dL Hct (39.0-53.0) % MCV (80.0-100.0) fL Neutrophils # (1.3-7.7) k/uL Lymphocytes # (1.0-4.8) k/uL ABG pH (7.35-7.45) ABG pCO2 (35-45) mmHg ABG Total CO2 (19-24) mmol/L ABG O2 Saturation (94-97) % Chloride (98-107) mmol/L Creatinine (0.66-1.25) mg/dL Glucose (74-99) mg/dL POC Glucose (mg/dL) 194 H (75-99) mg/dL Calcium (8.4-10.2) mg/dL Ferritin 848.0 H (22.0-322.0) ng/mL Total Protein (6.3-8.2) g/dL Albumin (3.5-5.0) g/dL Urine Protein Trace H (Negative) 08/03/21 08/03/21 08/03/21 Range/Units 11:33 17:51 23:50 WBC (3.8-10.6) k/uL RBC (4.30-5.90) m/uL Hgb (13.0-17.5) gm/dL Hct (39.0-53.0) % MCV (80.0-100.0) fL Neutrophils # (1.3-7.7) k/uL Lymphocytes # (1.0-4.8) k/uL ABG pH (7.35-7.45) ABG pCO2 (35-45) mmHg ABG Total CO2 (19-24) mmol/L ABG O2 Saturation (94-97) % Chloride (98-107) mmol/L Creatinine (0.66-1.25) mg/dL Glucose (74-99) mg/dL POC Glucose (mg/dL) 188 H 202 H 198 H (75-99) mg/dL Calcium (8.4-10.2) mg/dL Ferritin (22.0-322.0) ng/mL Total Protein (6.3-8.2) g/dL Albumin (3.5-5.0) g/dL Urine Protein (Negative) 08/04/21 08/04/21 08/04/21 Range/Units 03:50 03:50 05:45 WBC 19.4 H (3.8-10.6) k/uL RBC 3.68 L (4.30-5.90) m/uL Hgb 12.0 L (13.0-17.5) gm/dL Hct 37.1 L (39.0-53.0) % MCV 100.9 H (80.0-100.0) fL Neutrophils # 18.5 H (1.3-7.7) k/uL Lymphocytes # 0.5 L (1.0-4.8) k/uL ABG pH (7.35-7.45) ABG pCO2 (35-45) mmHg ABG Total CO2 (19-24) mmol/L ABG O2 Saturation (94-97) % Chloride 112 H (98-107) mmol/L Creatinine 0.47 L (0.66-1.25) mg/dL Glucose 234 H (74-99) mg/dL POC Glucose (mg/dL) 212 H (75-99) mg/dL Calcium 7.5 L (8.4-10.2) mg/dL Ferritin (22.0-322.0) ng/mL Total Protein 4.6 L (6.3-8.2) g/dL Albumin 2.2 L (3.5-5.0) g/dL Urine Protein (Negative) 08/04/21 Range/Units 06:08 WBC (3.8-10.6) k/uL RBC (4.30-5.90) m/uL Hgb (13.0-17.5) gm/dL Hct (39.0-53.0) % MCV (80.0-100.0) fL Neutrophils # (1.3-7.7) k/uL Lymphocytes # (1.0-4.8) k/uL ABG pH 7.30 L (7.35-7.45) ABG pCO2 50 H (35-45) mmHg ABG Total CO2 26 H (19-24) mmol/L ABG O2 Saturation 97.8 H (94-97) % Chloride (98-107) mmol/L Creatinine (0.66-1.25) mg/dL Glucose (74-99) mg/dL POC Glucose (mg/dL) (75-99) mg/dL Calcium (8.4-10.2) mg/dL Ferritin (22.0-322.0) ng/mL Total Protein (6.3-8.2) g/dL Albumin (3.5-5.0) g/dL Urine Protein (Negative) Assessment and Plan Assessment: Acute hypoxemic respiratory failure secondary to coronavirus associated pneumonia. Status post intubation and mechanical ventilation for respiratory failure on 08/02/2021. Possible underlying bacterial infection. CT angiogram negative for pulmonary embolism. Elevated troponins, likely related to supply/demand mismatch. Chronic systolic CHF. History of hypertension. History of CAD. Hyperlipidemia. Chronic back pain. History of alcohol use. History of anxiety/PTSD. Plan: Plan dated 08/04/2021. The patient remains on the mechanical ventilator. We will increase the PEEP levels to 18, and try to wean the FiO2. Because his cortisol level is a bit low, we added hydrocortisone, 50 mg IV push, every 6 hours. The patient remains on cefepime empirically. The patient also is on Decadron and Lovenox. The patient is maintained on vitamin C, vitamin D3, and zinc. He remains on Nimbex, propofol, and fentanyl. He's getting tube feedings at goal. We will continue to follow make recommendations where appropriate. Prognosis is guarded. Time with Patient: Greater than 30
[2021-08-04 11:28] LABS: Glucose,Whole Blood 194 mg/dL (75-99)
--- NOTE | 2021-08-04 11:31 | PN ---
PROGRESS NOTE Mr. Doyle is a 65-year-old male who presented with symptoms of progressive dyspnea and respiratory failure. He had COVID-19 pneumonia. Cardiology consultation was requested because of mild troponin elevation. He remains intubated, in a prone position. Hemodynamically stable in sinus mechanism. His echocardiogram could not be performed yesterday because of the fact that he was prone. He continues to be on aspirin once a day, carvedilol .5 mg twice a day, atorvastatin 40 mg daily, losartan 25 mg daily. PHYSICAL EXAMINATION: Blood pressure running in the 100s with a heart rate in the 70s. No examination was done to limit the exposure. LAB DATA: Lab data revealed BUN and creatinine 16 and 0.47, pH 7.3, pCO2 50, PO2 108, hemoglobin 12. IMPRESSION: 1. Respiratory failure with COVID-19 pneumonia. Patient continued to be intubated and in prone position. 2. Mild troponin elevation most likely related to his infectious process. No evidence to suggest a primary ischemic event. 3. History of coronary artery disease. 4. Prior history of cardiomyopathy with improvement in his echocardiogram on followup. 5. History of chronic back pain. 6. History of hypertension. 7. Hyperlipidemia. RECOMMENDATIONS: From the cardiac standpoint, we will continue the present regimen. The elevation of troponin does not reflect an acute ischemic event, is related to his COVID-19 infection. Depending on his progress, further recommendations will be made. BALDO / AMBERLYN: [id number] /
[2021-08-04] MEDS: HYDROCORTISONE SUCCINATE 100 MG/2 ML VIAL IV SCH ×3 (11:50→23:41)
--- NOTE | 2021-08-04 13:16 | P.PN ---
Subjective Progress Note Date: 08/04/21 Principal diagnosis: covid 19 pneumonia mechanically ventilated intubated Known diabetic, obesity, multiple risk factors him a mechanically ventilated intubated PEEP of 14, patient is in the intensive care unit room 266 Currently being pronated little change in pulmonary status from yesterday Objective - Vital Signs Vital signs: Vital Signs Temp 98.9 F 08/04/21 08:00 Pulse 70 08/04/21 12:00 Resp 36 H 08/04/21 12:00 BP 111/73 08/03/21 18:15 Pulse Ox 96 08/04/21 12:00 Intake & Output 08/03/21 08/04/21 08/04/21 18:59 06:59 18:59 Intake Total 2224.236 2269.227 1175.060 Output Total 895 950 750 Balance 7649.775 0715.227 425.060 Weight 107.8 kg Intake: IV 1158 936 568 ACETAMINOPHEN IV (For NPO 100 ) 1,000 mg In Empty Bag 1 bag @ 400 mls/hr IVPB Q6HR PRN Rx#:[id number] Cefepime 2 gm In Sodium 200 100 Chloride 0.9% 100 ml @ 200 mls/hr IVPB ONCE STA Rx#:[id number] Sodium Chloride 0.9% 1, 825 900 450 000 ml @ 75 mls/hr IV . [id number] [facility] Rx#:[id number] pressure bag 33 36 18 Intake, IV Titration 632.236 787.227 319.060 Amount Cisatracurium 200 mg In 200 186.368 Sodium Chloride 0.9% 180 ml @ 1 MCG/KG/MIN 6.24 mls/hr IV .Q24H [facility] Rx#: [id number] Norepinephrine 4 mg In 58.862 255.925 Sodium Chloride 0.9% 250 ml @ 0.05 MCG/KG/MIN 20. 841 mls/hr IV .[id number] [facility] Rx#:[id number] fentaNYL (PF). 1,000 mcg 84.76 77.653 121.147 In Sodium Chloride 0.9% 80 ml @ 0.5 MCG/KG/HR 5.2 mls/hr IV .[id number] [facility] Rx#:[id number] propofoL 1,000 mg In 288.614 267.281 197.913 Empty Bag 1 bag @ Titrate IV .Q0M [facility] Rx#: [id number] Tube Feeding 374 456 228 Other 60 90 60 Output: Urine 895 950 750 Other: Voiding Method Indwelling Catheter Indwelling Catheter Indwelling Catheter ABP, PAP, CO, CI - Last Documented Arterial Blood Pressure 91/49 - Exam General: Patient paralyzed and sedated intubated mechanically ventilated HEENT: [PERRL. EOMI. No pharyngeal erythema or exudate.] Neck: [No adenopathy.] Cardiac: [Heart regular in rate and rhythm. No S3. No S4. No clicks, rubs. No murmur.] Lungs: [Clear to auscultation bilaterally.] Abdomen: [No mass. No organomegaly. Bowel sounds presnt and normoactive in all 4 quadrants.] Extremes: [No edema no cyanosis no claudication normal pulses] : Normal male genitalia Pickett catheter inserted Musculoskeletal: [No joint erythema, edema or tenderness.] Skin: [No rash.] Neurologic: [No lateralizing deficits. CN II - XII grossly intact.] Lymphatic: [No adenopathy.] - Labs CBC & Chem 7: 08/04/21 03:50 08/04/21 03:50 Labs: Abnormal Lab Results - Last 24 Hours (Table) 08/03/21 08/03/21 08/04/21 Range/Units 17:51 23:50 03:50 WBC 19.4 H (3.8-10.6) k/uL RBC 3.68 L (4.30-5.90) m/uL Hgb 12.0 L (13.0-17.5) gm/dL Hct 37.1 L (39.0-53.0) % MCV 100.9 H (80.0-100.0) fL Neutrophils # 18.5 H (1.3-7.7) k/uL Lymphocytes # 0.5 L (1.0-4.8) k/uL ABG pH (7.35-7.45) ABG pCO2 (35-45) mmHg ABG Total CO2 (19-24) mmol/L ABG O2 Saturation (94-97) % Chloride (98-107) mmol/L Creatinine (0.66-1.25) mg/dL Glucose (74-99) mg/dL POC Glucose (mg/dL) 202 H 198 H (75-99) mg/dL Calcium (8.4-10.2) mg/dL Total Protein (6.3-8.2) g/dL Albumin (3.5-5.0) g/dL 08/04/21 08/04/21 08/04/21 Range/Units 03:50 05:45 06:08 WBC (3.8-10.6) k/uL RBC (4.30-5.90) m/uL Hgb (13.0-17.5) gm/dL Hct (39.0-53.0) % MCV (80.0-100.0) fL Neutrophils # (1.3-7.7) k/uL Lymphocytes # (1.0-4.8) k/uL ABG pH 7.30 L (7.35-7.45) ABG pCO2 50 H (35-45) mmHg ABG Total CO2 26 H (19-24) mmol/L ABG O2 Saturation 97.8 H (94-97) % Chloride 112 H (98-107) mmol/L Creatinine 0.47 L (0.66-1.25) mg/dL Glucose 234 H (74-99) mg/dL POC Glucose (mg/dL) 212 H (75-99) mg/dL Calcium 7.5 L (8.4-10.2) mg/dL Total Protein 4.6 L (6.3-8.2) g/dL Albumin 2.2 L (3.5-5.0) g/dL 08/04/21 Range/Units 11:27 WBC (3.8-10.6) k/uL RBC (4.30-5.90) m/uL Hgb (13.0-17.5) gm/dL Hct (39.0-53.0) % MCV (80.0-100.0) fL Neutrophils # (1.3-7.7) k/uL Lymphocytes # (1.0-4.8) k/uL ABG pH (7.35-7.45) ABG pCO2 (35-45) mmHg ABG Total CO2 (19-24) mmol/L ABG O2 Saturation (94-97) % Chloride (98-107) mmol/L Creatinine (0.66-1.25) mg/dL Glucose (74-99) mg/dL POC Glucose (mg/dL) 194 H (75-99) mg/dL Calcium (8.4-10.2) mg/dL Total Protein (6.3-8.2) g/dL Albumin (3.5-5.0) g/dL Microbiology - Last 24 Hours (Table) 08/03/21 09:40 Blood Culture - Preliminary Blood No Growth after 24 hours Assessment and Plan (1) CAD (coronary artery disease) Current Visit: Yes Status: Acute Code(s): I25.10 - ATHSCL HEART DISEASE OF [place] CORONARY ARTERY W/O ANG PCTRS SNOMED Code(s): 70710872 (2) COVID-19 Current Visit: Yes Status: Acute Code(s): U07.1 - COVID-19 SNOMED Code(s): 568092082 (3) Chronic systolic (congestive) heart failure Current Visit: Yes Status: Acute Code(s): I50.22 - CHRONIC SYSTOLIC (CONGESTIVE) HEART FAILURE SNOMED Code(s): 046571361 (4) Essential (primary) hypertension Current Visit: Yes Status: Acute Code(s): I10 - ESSENTIAL (PRIMARY) HYPERTENSION SNOMED Code(s): 97551225 (5) FDC (current) use of opiate analgesic Current Visit: Yes Status: Acute Code(s): Z79.891 - PRISON (CURRENT) USE OF OPIATE ANALGESIC SNOMED Code(s): 249857494 (6) Pneumonia Current Visit: Yes Status: Acute Code(s): J18.9 - PNEUMONIA, UNSPECIFIED ORGANISM SNOMED Code(s): 743248700 (7) Cardiomyopathy Current Visit: No Status: Acute Code(s): I42.9 - CARDIOMYOPATHY, UNSPECIFIED SNOMED Code(s): 35552293 (8) Daily consumption of alcohol Current Visit: No Status: Acute Code(s): Z78.9 - OTHER SPECIFIED HEALTH STATUS SNOMED Code(s): 756135430 Plan: Intubated and mechanically ventilated ARDS secondary to covid 19 pneumonia Cardiomyopathy Heart failure Hypertension Type 2 diabetes Patient was not vaccinated for SARS Covid 19 Prognosis critical Time with Patient: Greater than 30
[2021-08-04] MEDS: NOREPINEPHRINE 4 MG in SODIUM CHLORIDE 0.9% 250 ML IV SCH ×2 (14:21→19:50)
[2021-08-04] MEDS: ATORVASTATIN 40 MG TAB PO SCH (17:12)
[2021-08-04 17:24] LABS: Glucose,Whole Blood 175 mg/dL (75-99)
[2021-08-04] MEDS: SODIUM CHLORIDE 0.9% 1,000 ML IV SCH ×2 (17:38→20:49)
--- NOTE | 2021-08-04 18:19 | XR ---
EXAMINATION TYPE: XR chest 1V portable DATE OF EXAM: 08/04/2021 COMPARISON: Yesterday HISTORY: Short of breath TECHNIQUE: Carley view FINDINGS: The endotracheal tube is 4 cm from the giovani. There is left subclavian catheter with tip i n the superior vena cava. There is nasogastric tube in the stomach. There is patchy bilateral pulmona ry interstitial and airspace infiltrates. IMPRESSION: Bilateral patchy pneumonia slightly improved compared to yesterday.
[2021-08-04 23:29] LABS: Glucose,Whole Blood 210 mg/dL (75-99)
[2021-08-05] MEDS ORDERED: fentaNYL (PF) 50 MCG/ML 20 ML VIAL ONE ×2 (01:41→22:23)
[2021-08-05] MEDS: fentaNYL (PF). 1,000 MCG in SODIUM CHLORIDE 0.9% 80 ML IV SCH ×4 (01:43→22:29)
[2021-08-05] MEDS: ARTIFICIAL TEARS-HYPROMELLOSE DROPS 15 ML BTL BOTH EYES SCH ×6 (04:58→23:53)
[2021-08-05 04:59] LABS: Basophils % (A) 0 %; Eosinophils % (A) 0 %; HGB 11.4 gm/dL (13.0-17.5); Lymphocytes # (A) 0.4 k/uL (1.0-4.8); Lymphocytes % (A) 3 %; MCH 32.7 pg (25.0-35.0); MCHC 31.7 g/dL (31.0-37.0); Macrocytosis Slight; Mean Platelet Volume 7.5; Monocytes # (A) 0.3 k/uL (0-1.0); Monocytes % (A) 2 %; Neutrophils % (A) 95 %; Platelet Count 416 k/uL (150-450); RBC 3.49 m/uL (4.30-5.90); WBC 16.9 k/uL (3.8-10.6)
[2021-08-05 05:18] LABS: ALT 28 U/L (4-49); AST 27 U/L (17-59); African American GFR (CKD) >90 (>60 ml/min/1.73 sqM); Albumin 2.1 g/dL (3.5-5.0); Alkaline Phosphatase 83 U/L (38-126); Anion Gap 5 mmol/L; Blood Urea Nitrogen 21 mg/dL (9-20); Calcium 7.8 mg/dL (8.4-10.2); Carbon Dioxide 23 mmol/L (22-30); Chloride 113 mmol/L (98-107); Glucose 191 mg/dL (74-99); Non-African American GFR(CKD) >90 (>60 ml/min/1.73 sqM); Potassium 4.3 mmol/L (3.5-5.1); Sodium 141 mmol/L (137-145); Total Bilirubin 0.1 mg/dL (0.2-1.3); Total Protein 4.6 g/dL (6.3-8.2)
[2021-08-05] MEDS: carvediloL 12.5 MG TAB PO SCH ×2 (06:09→16:48)
[2021-08-05] MEDS: INSULIN ASPART (NovoLOG) 100 UNIT/ML VIAL SQ SCH ×4 (06:09→23:53)
[2021-08-05] MEDS: HYDROCORTISONE SUCCINATE 100 MG/2 ML VIAL IV SCH ×2 (06:09→11:25)
[2021-08-05 06:11] LABS: ABG Base Excess -0.4 mmol/L; ABG HCO3 25 mmol/L (21-25); ABG Oxygen Saturation 96.9 % (94-97); ABG PCO2 42 mmHg (35-45); ABG PH 7.38 (7.35-7.45); ABG PO2 83 mmHg (83-108); ABG TCO2 26 mmol/L (19-24); Allen Test Performed? Yes
[2021-08-05] MEDS: ALBUTEROL HFA INHALER INHALATION PRN (07:27)
--- NOTE | 2021-08-05 07:40 | P.PN ---
Subjective Progress Note Date: 08/05/21 Principal diagnosis: covid 19 pneumonia mechanically ventilated intubated Known diabetic, obesity, multiple risk factors , mechanically ventilated intubated PEEP of 18 , patient is in the intensive care unit room 266 Currently being paralyzed, Nimbex, sedated fentanyl and propofol . Hydrocortisone 50 mg every 6 hours was added yesterday Chest x-ray demonstrated diffuse bilateral infiltrates, CT angiogram negative for PE Objective - Vital Signs Vital signs: Vital Signs Temp 98.4 F 08/05/21 04:00 Pulse 64 08/05/21 07:00 Resp 36 H 08/05/21 07:00 BP 111/73 08/03/21 18:15 Pulse Ox 97 08/05/21 07:00 Intake & Output 08/04/21 08/05/21 08/05/21 18:59 06:59 18:59 Intake Total 2290.905 1927.948 116 Output Total 1200 1000 Balance 1090.905 927.948 116 Intake: IV 1114 858 78 Cefepime 2 gm In Sodium 100 Chloride 0.9% 100 ml @ 200 mls/hr IVPB ONCE STA Rx#:[id number] Sodium Chloride 0.9% 1, 975 825 75 000 ml @ 75 mls/hr IV . [id number] [facility] Rx#:[id number] pressure bag 39 33 3 Intake, IV Titration 592.905 561.948 Amount Cisatracurium 200 mg In 175.968 Sodium Chloride 0.9% 180 ml @ 1 MCG/KG/MIN 6.24 mls/hr IV .Q24H [facility] Rx#: [id number] Norepinephrine 4 mg In 0 Sodium Chloride 0.9% 250 ml @ 0.05 MCG/KG/MIN 20. 841 mls/hr IV .[id number] [facility] Rx#:[id number] fentaNYL (PF). 1,000 mcg 221.147 100 In Sodium Chloride 0.9% 80 ml @ 0.5 MCG/KG/HR 5.2 mls/hr IV .[id number] [facility] Rx#:[id number] propofoL 1,000 mg In 371.758 285.980 Empty Bag 1 bag @ Titrate IV .Q0M [facility] Rx#: [id number] Tube Feeding 494 418 38 Other 90 90 Output: Urine 1200 1000 Other: Voiding Method Indwelling Catheter Indwelling Catheter ABP, PAP, CO, CI - Last Documented Arterial Blood Pressure 107/54 - Exam General: Patient paralyzed and sedated intubated mechanically ventilated HEENT: [PERRL. EOMI. Neck: [No adenopathy.] Cardiac: [Heart regular in rate and rhythm. No S3. No S4. No clicks, rubs. No murmur. Lungs: Diffuse bilateral rhonchi bilateral crackles sounds equal but diminished O2 sats 95% Abdomen: [No mass. No organomegaly. Bowel sounds presnt and normoactive in all 4 quadrants. Extremes: [No edema no cyanosis no claudication normal pulses : Normal male genitalia Pickett catheter inserted Musculoskeletal: [No joint erythema, edema or tenderness. Skin: No rash. Neurologic: Patient paralyzed and sedated Lymphatic: No lymphadenopathy noted - Labs CBC & Chem 7: 08/05/21 04:20 08/05/21 04:20 Labs: Abnormal Lab Results - Last 24 Hours (Table) 08/04/21 08/04/21 08/04/21 Range/Units 03:50 11:27 17:23 WBC (3.8-10.6) k/uL RBC (4.30-5.90) m/uL Hgb (13.0-17.5) gm/dL Hct (39.0-53.0) % MCV (80.0-100.0) fL Neutrophils # (1.3-7.7) k/uL Lymphocytes # (1.0-4.8) k/uL ABG Total CO2 (19-24) mmol/L Chloride (98-107) mmol/L BUN (9-20) mg/dL Creatinine (0.66-1.25) mg/dL Glucose (74-99) mg/dL POC Glucose (mg/dL) 194 H 175 H (75-99) mg/dL Calcium (8.4-10.2) mg/dL Total Bilirubin (0.2-1.3) mg/dL Total Protein (6.3-8.2) g/dL Albumin (3.5-5.0) g/dL Procalcitonin 1.38 H (0.02-0.09) ng/mL 08/04/21 08/05/21 08/05/21 Range/Units 23:28 04:20 04:20 WBC 16.9 H (3.8-10.6) k/uL RBC 3.49 L (4.30-5.90) m/uL Hgb 11.4 L (13.0-17.5) gm/dL Hct 36.0 L (39.0-53.0) % MCV 103.0 H (80.0-100.0) fL Neutrophils # 16.0 H (1.3-7.7) k/uL Lymphocytes # 0.4 L (1.0-4.8) k/uL ABG Total CO2 (19-24) mmol/L Chloride 113 H (98-107) mmol/L BUN 21 H (9-20) mg/dL Creatinine 0.50 L (0.66-1.25) mg/dL Glucose 191 H (74-99) mg/dL POC Glucose (mg/dL) 210 H (75-99) mg/dL Calcium 7.8 L (8.4-10.2) mg/dL Total Bilirubin 0.1 L (0.2-1.3) mg/dL Total Protein 4.6 L (6.3-8.2) g/dL Albumin 2.1 L (3.5-5.0) g/dL Procalcitonin (0.02-0.09) ng/mL 08/05/21 Range/Units 06:07 WBC (3.8-10.6) k/uL RBC (4.30-5.90) m/uL Hgb (13.0-17.5) gm/dL Hct (39.0-53.0) % MCV (80.0-100.0) fL Neutrophils # (1.3-7.7) k/uL Lymphocytes # (1.0-4.8) k/uL ABG Total CO2 26 H (19-24) mmol/L Chloride (98-107) mmol/L BUN (9-20) mg/dL Creatinine (0.66-1.25) mg/dL Glucose (74-99) mg/dL POC Glucose (mg/dL) (75-99) mg/dL Calcium (8.4-10.2) mg/dL Total Bilirubin (0.2-1.3) mg/dL Total Protein (6.3-8.2) g/dL Albumin (3.5-5.0) g/dL Procalcitonin (0.02-0.09) ng/mL Microbiology - Last 24 Hours (Table) 08/03/21 16:43 Blood Culture - Preliminary Blood No Growth after 24 hours 08/03/21 09:40 Blood Culture - Preliminary Blood No Growth after 24 hours Assessment and Plan (1) CAD (coronary artery disease) Current Visit: Yes Status: Acute Code(s): I25.10 - ATHSCL HEART DISEASE OF [place] CORONARY ARTERY W/O ANG PCTRS SNOMED Code(s): 74233600 (2) COVID-19 Current Visit: Yes Status: Acute Code(s): U07.1 - COVID-19 SNOMED Code(s): 972739328 (3) Chronic systolic (congestive) heart failure Current Visit: Yes Status: Acute Code(s): I50.22 - CHRONIC SYSTOLIC (CONGESTIVE) HEART FAILURE SNOMED Code(s): 793880959 (4) Essential (primary) hypertension Current Visit: Yes Status: Acute Code(s): I10 - ESSENTIAL (PRIMARY) HYPERTENSION SNOMED Code(s): 22616414 (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 Current Visit: Yes Status: Acute Code(s): Z79.891 - CARE HOME (CURRENT) USE OF OPIATE ANALGESIC SNOMED Code(s): 065076327 (6) Pneumonia Current Visit: Yes Status: Acute Code(s): J18.9 - PNEUMONIA, UNSPECIFIED ORGANISM SNOMED Code(s): 680990819 (7) Cardiomyopathy Current Visit: No Status: Acute Code(s): I42.9 - CARDIOMYOPATHY, UNSPECIFIED SNOMED Code(s): 12653242 (8) Daily consumption of alcohol Current Visit: No Status: Acute Code(s): Z78.9 - OTHER SPECIFIED HEALTH STATUS SNOMED Code(s): 377161801 Plan: Intubated and mechanically ventilated ARDS secondary to covid 19 pneumonia Cardiomyopathy Heart failure Hypertension Type 2 diabetes Patient was not vaccinated for SARS Covid 19 Prognosis critical Time with Patient: Greater than 30
[2021-08-05] MEDS: PANTOPRAZOLE 40 MG/10 ML VIAL IVP SCH (07:55)
[2021-08-05] MEDS: CHOLECALCIFEROL 25 MCG (1000 IU) TABLET PO SCH (07:55)
[2021-08-05] MEDS: ASCORBIC ACID 500 MG TAB PO SCH (07:55)
[2021-08-05] MEDS: CEFEPIME 2 GM in SODIUM CHLORIDE 0.9% 100 ML IVPB SCH ×3 (07:55→23:53)
[2021-08-05] MEDS: ASPIRIN 81 MG PO SCH ×2 (07:56→20:19)
[2021-08-05] MEDS: ZINC SULFATE 220 MG CAP PO SCH (07:56)
[2021-08-05] MEDS: POTASSIUM CHLORIDE ER 20 MEQ TAB.ER PO SCH (07:56)
[2021-08-05] MEDS: ENOXAPARIN 40 MG/0.4 ML SYRINGE SQ SCH (07:56)
[2021-08-05] MEDS: CHLORHEXIDINE GLUCONATE 15 ML CUP MUCOUS MEM SCH ×2 (07:56→20:19)
[2021-08-05] MEDS: LOSARTAN 25 MG TAB PO SCH (07:56)
--- NOTE | 2021-08-05 11:03 | PN ---
PROGRESS NOTE Mr. Doyle is a 65-year-old male who presented with respiratory failure and evidence of COVID-19 pneumonia. He remains intubated in prone position. He had mild troponin elevation. He has no evidence of tachyarrhythmia or atrial fibrillation. Hemodynamically stable, on no vasopressor. He continues to be on aspirin once a day, Lipitor 40 mg daily, carvedilol 12.5 mg twice a day, Lovenox subcutaneously, losartan 25 mg daily. Blood pressure is running in the 100s with a heart rate in the 60s. No physical examination was done to limit the exposure. Lab data revealed a hemoglobin of 11.4, BUN and creatinine of 21 and 0.5, potassium 4.3, pH of 7.38, pCO2 of 42, PO2 of 83. His chest x-ray revealed bilateral infiltrates consistent with his COVID-19 pneumonia. IMPRESSION: 1. Respiratory failure with COVID-19 pneumonia. 2. Mild troponin elevation, most likely related to the infectious process. No evidence to suggest acute coronary syndrome. 3. History of coronary artery disease. 4. Prior history of cardiomyopathy that improved on subsequent echocardiogram. No repeat echocardiogram was done on this admission because of the prone position. 5. Prior history of hypertension. 6. Hyperlipidemia. RECOMMENDATIONS: Will continue on the present medical regimen. If the patient is not prone, then an echocardiogram can be performed. MMHIMAL / IJN: [id number] /
[2021-08-05] MEDS ORDERED: FUROSEMIDE 10 MG/ML 4 ML VIAL IV STA (11:19)
[2021-08-05] MEDS: SODIUM CHLORIDE 0.9% 1,000 ML IV SCH (11:22)
[2021-08-05] MEDS: CISATRACURIUM 200 MG in SODIUM CHLORIDE 0.9% 180 ML IV SCH (11:28)
[2021-08-05 11:36] LABS: Glucose,Whole Blood 171 mg/dL (75-99)
--- NOTE | 2021-08-05 11:46 | P.PN ---
Subjective Progress Note Date: 08/05/21 Principal diagnosis: Respiratory failure. Shortness of breath, hypoxia, COVID 19 This is 65-year-old male patient who has a history of hyperlipidemia, hypertension, anxiety, PTSD. He developed symptoms of increasing shortness of breath cough and congestion headache fever chills approximately 4 days ago. He tested positive for COVID-19 and received monoclonal antibodies by [facility]. He presented to the emergency room early this morning with worsening symptoms. The patient is not vaccinated. Chest x-ray shows bilateral patchy opacities consistent with COVID-19 pneumonia. White count 5.8. Hemoglobin 15.3. Lymphocytes 0.7. D-dimer 0.33. Sodium 134. Potassium 4.4. Creatinine 0.84. AST 56,. ALT 34. Troponins negative 3. ProBNP 54. He's been initia liza on Decadron, Lovenox, vitamin supplements. He is seen today in consultation on the regular medical floor. He is already on by mouth liters high flow nasal cannula plus a nonrebreather mask. He is afebrile. Hemodynamically stable. Dyspneic with minimal conversation. Dyspneic with minimal exertion. On 07/29/2021 patient seen in follow-up on medical surgical floor, he is currently on 15 L per high flow nasal cannula his pulse ox is 87-91%, he is afebrile, hemodynamically stable, patient has been repositioning self and then, on his left side right side, and he states he did try some prone positioning briefly.He was started on Baricitinib yesterday and he is on Decadron 6 mg daily in addition to prophylactic Lovenox. Today's labs have been reviewed, his white blood cell count is 10.7, hemoglobin is 14.4, he is actually excellent renal profile are within normal limits, he is d-dimer on admission was negative at 0.33. LDH and CRP levels are still pending, pro-calcitonin level was negative at 0.07. On 07/30/2021 patient is seen in follow-up on medical surgical floor, he remains on high flow oxygen with 15 L high flow nasal cannula and 100% nonrebreather mask, and his pulse ox of 92-94%, and in a patient was confused, and agitated at times, he was removing his oxygen desaturating, food safety field specialist is outside the door, doing supervision. Patient is breathing fairly comfortably, he feels like his breathing is a little easier today, has occasional cough, at times she is able to bring up some yellow and green colored phlegm, no fever or chills, he was started on Baricitinib on 07/28/2021, he is also on Decadron 6 mg daily, and Lovenox 40 mg daily. Remains on IV fluids with 0.9 normal saline at a rate of 75 ML per hour, he is on COVID-19 vitamins. Labs reviewed, white blood cell count is 12.9, hemoglobin is 14.6, platelet count is 369, his d-dimer slightly increased and is currently at 0.60, electrolytes and renal profile are within normal limits. His LDH today is increased and is up to 1634, patient had 4 sets of negative troponin at less than 0.012, proBNP was 107, pro-calcitonin level was negative at 0.07 On 08/01/2021 patient seen in follow-up on medical surgical floor. Patient is currently on 15 L and 100% nonrebreather mask, he had a rapid response team call early this morning for a concern of intermittent pleuritic chest discomfort, and pain in bilateral lower extremities. In addition patient was noted to be intermittently removing his oxygen and desaturating. Currently he is awake, he is laying in bed, however he is crying, he is complaining of pain, however he is not able to say where the pain is. O2 saturation is 91%. His been afebrile, hemodynamically stable, lower extremity Dopplers were negative for DVT. Patient is currently on Baricitinib, he is on Lovenox 40 mg daily, and Decadron. He is receiving IV fluids at a rate of 75 ML per hour. He is d-dimer is 0.76, white count is 13.3, hemoglobin is 13.7, electrolyte and renal profile are within normal limits, he is LDH has improved since admission, and is down to 572, his troponins were negative 3, and CRP is improving and is down to 2.2. On 08/02/2021 patient seen in follow-up in the intensive care unit, this morning she was emergently transferred to the ICU for worsening hypoxia, he was emergently intubated and placed on mechanical ventilator, currently sedated, on assist-control mode of ventilation with a rate of 36, tidal volume is 450, FiO2 100% and PEEP of 10. Patient is quite dyssyncronous with the ventilator, Nimbex has been ordered, awaiting starting the paralytic. This pulse ox is only 82%, and the PEEP has been increased to 14, awaiting follow-up blood gas. He is in sinus mechanism tachycardic with a rate of 116. He is currently on 0.9 with seen at the rate of 75 ML per hour, Diprivan is 50 mics per kilo per minute. Patient was given Nimbex 10 mg IV push, he is better synchronize, his peak air pressures 34, plateau is 31. His chest x-ray from this morning shows ET tube slightly low, just above the giovani, and we will pull back the ET tube 2 or 3 cm. There are bilateral multifocal increased opacities with worsening findings and the right upper lung. CT angiogram of the chest from yesterday showed no acute pulmonary embolism within the limitation of the study. Today's labs are still pending. Patient continues on Baricitinib, Lovenox 40 mg, Decadron. Pickett catheter has been placed, patient is producing urine, he required a brief norepinephrine support. We'll place his Lasix on hold, will discontinue oral medications. On 08/03/2021 patient is seen in follow-up in the intensive care unit, he is currently intubated, sedated and paralyzed and proned. Vent settings this morning are assist-control with a rate of 36, tidal volume is 450, FiO2 of 90% and PEEP of 10. However his pulse ox is only 86-80%, this morning's blood gas shows pO2 of 64, pCO2 41, and pH of 7.36. His peak pressure is 32, plateau is 34. Patient is currently on 0.9 normal saline at 75 ML per hour, fentanyl is a 0.5 mics per kilo per minute, norepinephrine drip is a 0.03 mics per minute, Nimbex is a 2 mics per minute per minute, Diprivan is a 50 mics per kilo per minute. He was started on tube feedings with vital HP at a rate of 30 with a goal of 34. Chest x-ray today is still pending, patient's chest x-ray will be taken when he is turned on his back at 10:00 this morning. Today's labs show uptrending white count at 17.3, hemoglobin is 13, his INR is 1.1, his d-dimer is 9.45, sodium is 136, potassium is 4.1, CO2 is 20, BUN 17 creatinine 0.67, his troponin increased to 0.3-0, cardiology has been consulted, his proBNP was 2100, cortisol level was 19, TSH was 0.031, but free T4 was 1.17, within normal limits. Pro-calcitonin level came back at 1.31 suggesting presence of bacterial infection and patient is on sitting up which we will discontinue this morning. Urinalysis has been sent shows no evidence of infection, patient will be pancultured. And placed on cefepime. His recent CT angiogram of the chest showed no acute PE, post recent lower extremity Dopplers from 07/30/2021 showed no evidence of DVT. Patient did have fever elevation through the night, with a T-max of 106.8F, patient received antipyretics, this morning his temperature is 100.1F. Blood cultures will be sent lactic acid will be obtained. Progress note dated 08/04/2021. The patient remains in the intensive care unit, in seen in room 266. Currently, he's on the volume assist control mode, rate 36, tidal volume 450, FiO2 100%, and PEEP of 14. Blood gases show a PaO2 of 108, pCO2 of 50, and pH is 7.3. The patient's on Nimbex at 2 mcg/kg/m, fall at 50 mcg/kg/m, fentanyl at 1.5 mcg/kg/h, saline at 75 mL an hour and vital high protein at 30 mL an hour. That is goal. We will attempt to wean the FiO2. The PEEP was increased from 14 up to 18 cm water and we'll add hydrocortisone 50 mg every 6 hours. The patient's cortisol level was a bit low. White count 19.4, hemoglobin 12, hematocrit 37.1, platelet count 383,000. Sodium 139, potassium 4, chlorides 112, CO2 22, anion gap 5, BUN 16, creatinine 0.47. Albumin is 2.2. Chest x-ray shows diffuse bilateral infiltrates, and CT angiogram was negative for pulmonary embolism. Progress note dated 08/05/2021. 65-year-old male, again seen in the ICU, room 266. The patient is currently on the volume assist control mode of ventilation, rate 36, tidal volume 450, FiO2 90%, and PEEP of 18. Blood gases show a PaO2 of 83, pCO2 42, and a pH is 7.38. The patient remains on Nimbex at 2 mcg/kg/m, propofol at 50 mcg/kg/m, and fentanyl 1.5 mcg/kg/h. The patient's getting saline at 75 mL an hour, and vital high protein at 30 mL an hour, which is goal. The plans for the patient today or to wean the FiO2 down, to reduce his fluids to KVO, and to give the patient Lasix [address] angiogram was negative for pulmonary embolism. White count 16.9, hemoglobin 11.4, hematocrit 36, and normal platelet count. Sodium 141, potassium 4.3, chlorides 113, CO2 23, anion gap 5, BUN 21, and creatinine 0.5. Albumin is 2.1. Microbiologic studies are negative. Chest x-ray shows bilateral patchy infiltrates and pneumonia, somewhat improved compared to the prior chest x-ray. Objective - Vital Signs Vital signs: Vital Signs Temp 98.2 F 08/05/21 08:00 Pulse 70 08/05/21 10:00 Resp 36 H 08/05/21 10:00 BP 111/73 08/03/21 18:15 Pulse Ox 98 08/05/21 10:00 Intake & Output 08/04/21 08/05/21 08/05/21 18:59 06:59 18:59 Intake Total 2290.905 2027.948 925.797 Output Total 1200 1000 300 Balance 4009.678 2491.948 625.797 Intake: IV 1114 858 312 Cefepime 2 gm In Sodium 100 Chloride 0.9% 100 ml @ 200 mls/hr IVPB ONCE STA Rx#:[id number] Sodium Chloride 0.9% 1, 975 825 300 000 ml @ 75 mls/hr IV . [id number] [facility] Rx#:[id number] pressure bag 39 33 12 Intake, IV Titration 592.905 661.948 575.797 Amount Cisatracurium 200 mg In 175.968 195.104 Sodium Chloride 0.9% 180 ml @ 1 MCG/KG/MIN 6.24 mls/hr IV .Q24H [facility] Rx#: [id number] Norepinephrine 4 mg In 0 195.908 Sodium Chloride 0.9% 250 ml @ 0.05 MCG/KG/MIN 20. 841 mls/hr IV .[id number] [facility] Rx#:[id number] fentaNYL (PF). 1,000 mcg 221.147 200 In Sodium Chloride 0.9% 80 ml @ 0.5 MCG/KG/HR 5.2 mls/hr IV .[id number] [facility] Rx#:[id number] propofoL 1,000 mg In 371.758 285.980 184.785 Empty Bag 1 bag @ Titrate IV .Q0M [facility] Rx#: [id number] Tube Feeding 494 418 38 Other 90 90 Output: Urine 1200 1000 300 Other: Voiding Method Indwelling Catheter Indwelling Catheter Indwelling Catheter ABP, PAP, CO, CI - Last Documented Arterial Blood Pressure 133/65 - Exam No acute distress, sedated and paralyzed. He's got an orally placed endotracheal tube and NG tube. HEENT examination is grossly unremarkable. Neck supple. Full range of motion. No adenopathy thyromegaly or neck vein distention. Cardiovascular examination reveals regular rhythm rate. S1-S2 normal. No S3 or S4. No discernible murmur noted. Heart sounds are distant. Heart rate 70 bpm. Lungs reveal diffuse bilateral rhonchi as well as bilateral crackles. Breath sounds equal bilaterally. There are no wheezes. Saturations are 97%. Abdomen soft bowel sounds are heard. No masses or tenderness. Extremities are intact. No cyanosis clubbing or edema. Skin is without rash or lesion. Neurologic examination cannot be adequately assessed as the patient's currently sedated and paralyzed. - Labs CBC & Chem 7: 08/05/21 04:20 08/05/21 04:20 Labs: Abnormal Lab Results - Last 24 Hours (Table) 08/04/21 08/04/21 08/04/21 Range/Units 03:50 17:23 23:28 WBC (3.8-10.6) k/uL RBC (4.30-5.90) m/uL Hgb (13.0-17.5) gm/dL Hct (39.0-53.0) % MCV (80.0-100.0) fL Neutrophils # (1.3-7.7) k/uL Lymphocytes # (1.0-4.8) k/uL ABG Total CO2 (19-24) mmol/L Chloride (98-107) mmol/L BUN (9-20) mg/dL Creatinine (0.66-1.25) mg/dL Glucose (74-99) mg/dL POC Glucose (mg/dL) 175 H 210 H (75-99) mg/dL Calcium (8.4-10.2) mg/dL Total Bilirubin (0.2-1.3) mg/dL Total Protein (6.3-8.2) g/dL Albumin (3.5-5.0) g/dL Procalcitonin 1.38 H (0.02-0.09) ng/mL 08/05/21 08/05/21 08/05/21 Range/Units 04:20 04:20 06:07 WBC 16.9 H (3.8-10.6) k/uL RBC 3.49 L (4.30-5.90) m/uL Hgb 11.4 L (13.0-17.5) gm/dL Hct 36.0 L (39.0-53.0) % MCV 103.0 H (80.0-100.0) fL Neutrophils # 16.0 H (1.3-7.7) k/uL Lymphocytes # 0.4 L (1.0-4.8) k/uL ABG Total CO2 26 H (19-24) mmol/L Chloride 113 H (98-107) mmol/L BUN 21 H (9-20) mg/dL Creatinine 0.50 L (0.66-1.25) mg/dL Glucose 191 H (74-99) mg/dL POC Glucose (mg/dL) (75-99) mg/dL Calcium 7.8 L (8.4-10.2) mg/dL Total Bilirubin 0.1 L (0.2-1.3) mg/dL Total Protein 4.6 L (6.3-8.2) g/dL Albumin 2.1 L (3.5-5.0) g/dL Procalcitonin (0.02-0.09) ng/mL 08/05/21 Range/Units 11:35 WBC (3.8-10.6) k/uL RBC (4.30-5.90) m/uL Hgb (13.0-17.5) gm/dL Hct (39.0-53.0) % MCV (80.0-100.0) fL Neutrophils # (1.3-7.7) k/uL Lymphocytes # (1.0-4.8) k/uL ABG Total CO2 (19-24) mmol/L Chloride (98-107) mmol/L BUN (9-20) mg/dL Creatinine (0.66-1.25) mg/dL Glucose (74-99) mg/dL POC Glucose (mg/dL) 171 H (75-99) mg/dL Calcium (8.4-10.2) mg/dL Total Bilirubin (0.2-1.3) mg/dL Total Protein (6.3-8.2) g/dL Albumin (3.5-5.0) g/dL Procalcitonin (0.02-0.09) ng/mL Microbiology - Last 24 Hours (Table) 08/03/21 16:43 Blood Culture - Preliminary Blood No Growth after 24 hours 08/03/21 09:40 Blood Culture - Preliminary Blood No Growth after 24 hours Assessment and Plan Assessment: Acute hypoxemic respiratory failure secondary to coronavirus associated pneumonia. Status post intubation and mechanical ventilation for respiratory failure on 08/02/2021. Possible underlying bacterial infection. CT angiogram negative for pulmonary embolism. Elevated troponins, likely related to supply/demand mismatch. Chronic systolic CHF. History of hypertension. History of CAD. Hyperlipidemia. Chronic back pain. History of alcohol use. History of anxiety/PTSD. Plan: Plan dated 08/04/2021. The patient remains on the mechanical ventilator. We will increase the PEEP levels to 18, and try to wean the FiO2. Because his cortisol level is a bit low, we added hydrocortisone, 50 mg IV push, every 6 hours. The patient remains on cefepime empirically. The patient also is on Decadron and Lovenox. The patient is maintained on vitamin C, vitamin D3, and zinc. He remains on Nimbex, propofol, and fentanyl. He's getting tube feedings at goal. We will continue to follow make recommendations where appropriate. Prognosis is guarded. Plan dated 08/05/2021. The patient remains sedated and paralyzed. We will attempt to wean the Nimbex off. The patient will get Lasix 40 mg IV push today. In addition, we will attempt to wean the FiO2. Also, we'll cut back on the fluids. Additional recommendations and suggestions are forthcoming. The patient remains on Lovenox, and vitamins. We will add back Decadron and DC the hydrocortisone. A dditional recommendations and suggestions are forthcoming. The patient remains on cefepime empirically. Prognosis is guarded. Time with Patient: Greater than 30
[2021-08-05] MEDS: DEXAMETHASONE SOD PHOSPHATE 10 MG/ML 1 ML VIAL IVP SCH (11:57)
--- NOTE | 2021-08-05 15:43 | XR ---
EXAMINATION TYPE: XR chest 1V DATE OF EXAM: 08/05/2021 COMPARISON: Yesterday HISTORY: Short of breath TECHNIQUE: Single view FINDINGS: Endotracheal tube is 6 cm from the giovani. There is nasogastric tube in the stomach. There is patchy predominantly interstitial infiltrates in both lungs and more severe in the right upper lob e and left lower lobe. There are chest leads. Trachea is midline. Heart size is normal. Left subclavi an catheter has tip in the superior vena cava. IMPRESSION: Bilateral moderate interstitial pneumonia which is significantly different than yesterday .
[2021-08-05] MEDS: ATORVASTATIN 40 MG TAB PO SCH (16:48)
[2021-08-05 18:06] LABS: Glucose,Whole Blood 166 mg/dL (75-99)
[2021-08-05 23:40] LABS: Glucose,Whole Blood 196 mg/dL (75-99)
[2021-08-06] MEDS: CISATRACURIUM 200 MG in SODIUM CHLORIDE 0.9% 180 ML IV SCH ×2 (01:52→14:51)
[2021-08-06 03:56] LABS: Basophils % (A) 0 %; Eosinophils # (A) 0.1 k/uL (0-0.7); Eosinophils % (A) 0 %; HCT 38.7 % (39.0-53.0); HGB 12.3 gm/dL (13.0-17.5); Lymphocytes # (A) 0.7 k/uL (1.0-4.8); Lymphocytes % (A) 4 %; MCH 32.2 pg (25.0-35.0); MCHC 31.8 g/dL (31.0-37.0); MCV 101.2 fL (80.0-100.0); Macrocytosis Slight; Mean Platelet Volume 7.8; Monocytes # (A) 0.5 k/uL (0-1.0); Monocytes % (A) 3 %; Neutrophils # (A) 17.4 k/uL (1.3-7.7); Neutrophils % (A) 93 %; Platelet Count 418 k/uL (150-450); RBC 3.83 m/uL (4.30-5.90); RDW 13.5 % (11.5-15.5); WBC 18.7 k/uL (3.8-10.6)
[2021-08-06] MEDS ORDERED: fentaNYL (PF) 50 MCG/ML 20 ML VIAL ONE ×2 (03:56→20:45)
[2021-08-06] MEDS: fentaNYL (PF). 1,000 MCG in SODIUM CHLORIDE 0.9% 80 ML IV SCH ×4 (03:58→21:06)
[2021-08-06] MEDS: ARTIFICIAL TEARS-HYPROMELLOSE DROPS 15 ML BTL BOTH EYES SCH ×5 (04:11→20:29)
[2021-08-06 04:19] LABS: ALT 69 U/L (4-49); AST 75 U/L (17-59); African American GFR (CKD) >90 (>60 ml/min/1.73 sqM); Albumin 2.4 g/dL (3.5-5.0); Alkaline Phosphatase 101 U/L (38-126); Anion Gap 8 mmol/L; Blood Urea Nitrogen 26 mg/dL (9-20); Calcium 7.9 mg/dL (8.4-10.2); Carbon Dioxide 26 mmol/L (22-30); Chloride 110 mmol/L (98-107); Glucose 182 mg/dL (74-99); Non-African American GFR(CKD) >90 (>60 ml/min/1.73 sqM); Potassium 4.2 mmol/L (3.5-5.1); Sodium 144 mmol/L (137-145); Total Bilirubin 0.2 mg/dL (0.2-1.3); Total Protein 5.2 g/dL (6.3-8.2)
[2021-08-06] MEDS: INSULIN ASPART (NovoLOG) 100 UNIT/ML VIAL SQ SCH ×3 (05:40→18:16)
[2021-08-06] MEDS: carvediloL 12.5 MG TAB PO SCH ×2 (05:41→16:34)
[2021-08-06 05:45] LABS: ABG PCO2 50 mmHg (35-45); ABG PH 7.36 (7.35-7.45); Allen Test Performed? Yes
[2021-08-06 05:46] LABS: ABG Base Excess 2.9 mmol/L; ABG HCO3 28 mmol/L (21-25); ABG PO2 84 mmHg (83-108); ABG TCO2 30 mmol/L (19-24)
[2021-08-06] MEDS: ASCORBIC ACID 500 MG TAB PO SCH (07:52)
[2021-08-06] MEDS: CEFEPIME 2 GM in SODIUM CHLORIDE 0.9% 100 ML IVPB SCH ×2 (07:52→16:33)
[2021-08-06] MEDS: DEXAMETHASONE SOD PHOSPHATE 10 MG/ML 1 ML VIAL IVP SCH (07:52)
[2021-08-06] MEDS: ASPIRIN 81 MG PO SCH ×2 (07:52→20:29)
[2021-08-06] MEDS: CHLORHEXIDINE GLUCONATE 15 ML CUP MUCOUS MEM SCH ×2 (07:52→20:29)
[2021-08-06] MEDS: CHOLECALCIFEROL 25 MCG (1000 IU) TABLET PO SCH (07:53)
[2021-08-06] MEDS: PANTOPRAZOLE 40 MG/10 ML VIAL IVP SCH (07:53)
[2021-08-06] MEDS: ZINC SULFATE 220 MG CAP PO SCH (07:53)
[2021-08-06] MEDS: ENOXAPARIN 40 MG/0.4 ML SYRINGE SQ SCH (07:53)
[2021-08-06] MEDS: LOSARTAN 25 MG TAB PO SCH (07:53)
[2021-08-06] MEDS: POTASSIUM CHLORIDE ER 20 MEQ TAB.ER PO SCH (09:16)
--- NOTE | 2021-08-06 09:48 | P.PN ---
Subjective Progress Note Date: 08/06/21 This is 65-year-old male patient who has a history of hyperlipidemia, hypertension, anxiety, PTSD. He developed symptoms of increasing shortness of breath cough and congestion headache fever chills approximately 4 days . He tested positive for COVID-19 and received monoclonal antibodies by [facility]. He presented to the emergency room with worsening symptoms. The patient is not vaccinated. Chest x-ray shows bilateral patchy opacities consistent with COVID-19 pneumonia. He was already on high flow nasal cannula plus a nonrebreather mask. On 08/02/2021 patient was emergently transferred to the ICU for worsening hypoxia, he was emergently intubated and placed on mechanical ventilator, The CXR was bilateral multifocal increased opacities with worsening findings and the right upper lung. CT angiogram of the chest showed no acute pulmonary embolism within the limitation of the study, lower extremity Dopplers from 07/30/2021 showed no evidence of DVT. On 08/06/2021, is sedated and the patient is currently on propofol running at 50 mcg/kg per minute and the patient is also on fentanyl running at 1.5 [facility] program per minute. The patient is paralyzed with Nimbex at 2 mcg/kg per minute. The patient is quite sick visit mechanical ventilator. The patient is currently on the volume assist control mode of ventilation, rate 36, tidal volume 450, FiO2 70%, and PEEP of 18. His peak airway pressure today on the mechanical ventilator 38 with acetic acid pressure of 36. The blood gases showed a pH of 7.36 with a pCO2 of 50 and pO2 of 84. The chest x-ray from today is showing bilateral pulmonary infiltrates more so in the right upper lobe and the left lower lobe. ET tube is around 6 cm above the giovani. Note that the patient is currently controlled and once he is taken off the prone body positioning, ET tube will be pushed him by another centimeter. Note that the patient has been receiving phoning body positioning treatment on a daily basis for the past 4 days. He was last prone at 10:00 PM. Inflammatory markers shows a pro-calcitonin level of 1.38 from 08/04/2021. LDH level was 1277 and the level has been fluctuating and a CRP level was 26.3, higher. The patient is being treated with Decadron 6 mg IV every 24 hours. The patient is also on Lovenox 40 mg subcu every 24 hours. The patient is also on IV cefepime as an empiric antibiotic coverage. All of the cultures are negative and the patient had 2 sets of blood cultures that were negative. White cell count is at 18.7 with a hemoglobin of 12.3. Rest of the blood work shows his sodium level of 144, potassium level of 4.2, BUN is 26 with a creatinine 0.5. No other significant events otherwise for now. He is currently prone. Cardiac rhythm is sinus. He has a triple-lumen catheter in place. Objective - Vital Signs Vital signs: Vital Signs Temp 98.7 F 08/06/21 08:00 Pulse 79 08/06/21 09:00 Resp 36 H 08/06/21 09:00 BP 111/73 08/03/21 18:15 Pulse Ox 93 L 08/06/21 09:00 Intake & Output 08/05/21 08/06/21 08/06/21 18:59 06:59 18:59 Intake Total 2665.873 7962.784 366.629 Output Total 2500 1025 125 Balance -568.203 572.784 241.629 Intake: IV 542 276 46 Sodium Chloride 0.9% 1, 500 240 40 000 ml @ 20 mls/hr IV . Q24H [facility] Rx#:[id number] pressure bag 42 36 6 Intake, IV Titration 775.797 775.784 244.629 Amount Cefepime 2 gm In Sodium 100 100 Chloride 0.9% 100 ml @ 25 mls/hr IVPB Q8HR [facility] Rx# :[id number] Cisatracurium 200 mg In 195.104 179.712 Sodium Chloride 0.9% 180 ml @ 1 MCG/KG/MIN 6.24 mls/hr IV .Q24H [facility] Rx#: [id number] Norepinephrine 4 mg In 195.908 Sodium Chloride 0.9% 250 ml @ 0.05 MCG/KG/MIN 20. 841 mls/hr IV .[id number] [facility] Rx#:[id number] fentaNYL (PF). 1,000 mcg 100 200.347 64.22 In Sodium Chloride 0.9% 80 ml @ 0.5 MCG/KG/HR 5.2 mls/hr IV .[id number] [facility] Rx#:[id number] propofoL 1,000 mg In 284.785 295.725 80.409 Empty Bag 1 bag @ Titrate IV .Q0M [facility] Rx#: [id number] Tube Feeding 494 456 76 Other 120 90 Output: Urine 2500 1025 125 Other: Voiding Method Indwelling Catheter Indwelling Catheter Indwelling Catheter ABP, PAP, CO, CI - Last Documented Arterial Blood Pressure 140/64 - Exam No acute distress, sedated and paralyzed. He's got an orally placed endotracheal tube and NG tube. The patient is currently inactive on body positioning. Intubated on a mechanical ventilator. Sedated and paralyzed for now. HEENT examination is grossly unremarkable. Neck supple. Full range of motion. No adenopathy thyromegaly or neck vein distention. Cardiovascular examination reveals regular rhythm rate. S1-S2 normal. No S3 or S4. No discernible murmur noted. Heart sounds are distant. Lungs reveal diffuse bilateral rhonchi as well as bilateral crackles. Breath sounds equal bilaterally. There are no wheezes. Abdomen soft bowel sounds are heard. No masses or tenderness. Extremities are intact. No cyanosis clubbing or edema. Skin is without rash or lesion. Neurologic examination cannot be adequately assessed as the patient's currently sedated and paralyzed. - Labs CBC & Chem 7: 08/06/21 03:40 08/06/21 03:40 Labs: Abnormal Lab Results - Last 24 Hours (Table) 08/05/21 08/05/21 08/05/21 Range/Units 11:35 18:05 23:39 WBC (3.8-10.6) k/uL RBC (4.30-5.90) m/uL Hgb (13.0-17.5) gm/dL Hct (39.0-53.0) % MCV (80.0-100.0) fL Neutrophils # (1.3-7.7) k/uL Lymphocytes # (1.0-4.8) k/uL ABG pCO2 (35-45) mmHg ABG HCO3 (21-25) mmol/L ABG Total CO2 (19-24) mmol/L Chloride (98-107) mmol/L BUN (9-20) mg/dL Creatinine (0.66-1.25) mg/dL Glucose (74-99) mg/dL POC Glucose (mg/dL) 171 H 166 H 196 H (75-99) mg/dL Calcium (8.4-10.2) mg/dL AST (17-59) U/L ALT (4-49) U/L Total Protein (6.3-8.2) g/dL Albumin (3.5-5.0) g/dL 08/06/21 08/06/21 08/06/21 Range/Units 03:40 03:40 05:40 WBC 18.7 H (3.8-10.6) k/uL RBC 3.83 L (4.30-5.90) m/uL Hgb 12.3 L (13.0-17.5) gm/dL Hct 38.7 L (39.0-53.0) % MCV 101.2 H (80.0-100.0) fL Neutrophils # 17.4 H (1.3-7.7) k/uL Lymphocytes # 0.7 L (1.0-4.8) k/uL ABG pCO2 50 H (35-45) mmHg ABG HCO3 28 H (21-25) mmol/L ABG Total CO2 30 H (19-24) mmol/L Chloride 110 H (98-107) mmol/L BUN 26 H (9-20) mg/dL Creatinine 0.51 L (0.66-1.25) mg/dL Glucose 182 H (74-99) mg/dL POC Glucose (mg/dL) (75-99) mg/dL Calcium 7.9 L (8.4-10.2) mg/dL AST 75 H (17-59) U/L ALT 69 H (4-49) U/L Total Protein 5.2 L (6.3-8.2) g/dL Albumin 2.4 L (3.5-5.0) g/dL Microbiology - Last 24 Hours (Table) 08/03/21 16:43 Blood Culture - Preliminary Blood No Growth after 48 hours 08/03/21 09:40 Blood Culture - Preliminary Blood No Growth after 48 hours Assessment and Plan Plan: 1 the patient's x-ray she progressively got worse during the current hospitalization patient had to be intubated and placed on mechanical ventilator. The patient is currently acute hypoxemic respiratory failure secondary to coronavirus associated pneumonia and he is patient Status post intubation and mechanical ventilation for respiratory failure on 08/02/2021. The patient is currently on Decadron. The patient's CT angiogram showed no pulmonary embolism. The patient is receiving daily prone positioning. At this point in time, the patient is in a prone body position. The patient remains on Decadron. The patient is on Lovenox. Extremity marked as needed to be rechecked for tomorrow. Meanwhile, the patient is on Decadron. The patient on empiric antibiotic coverage with IV cefepime. Still sedated and paralyzed on a mechanical ventilator. Chest x-ray was noted. Blood gases was noted. The fluid balance has been positive and significant amounts. 2 Possible underlying bacterial infection, based on an elevated glucose to Levaquin and the patient is currently on IV cefepime 3 Elevated troponins, likely related to supply/demand mismatch. 4 Chronic systolic CHF. 5 History of hypertension. 6 History of CAD. 7 Hyperlipidemia. 8 Chronic back pain. 9 History of alcohol use. 10 History of anxiety/PTSD. Plan Continue ventilator support, no changes to be done for today. For now the patient is an prone body positioning. We'll put him supine after 16 hours and recheck the blood gases and decide if there is any changes needs to be done. Continue Decadron Continue IV cefepime Continue Lovenox+ IVF to KVO Start the patient on Lasix 40 mg IV every 12 hours The patient implement a marker for tomorrow Enteral feeding for nutritional support Daily chest x-rays We'll continue to follow. Condition is obviously critical and poor outcome is anticipated or suspect in this patient based on his comorbidities. We'll continue to follow. Cardiac care evaluation, more than 30 minutes. Time with Patient: Greater than 30
[2021-08-06] MEDS ORDERED: CLEVIDIPINE BUTYRATE 25 MG in EMPTY BAG 1 BAG IV SCH (10:15)
[2021-08-06] MEDS: FUROSEMIDE 10 MG/ML 4 ML VIAL IV SCH ×2 (10:35→20:29)
[2021-08-06] MEDS: ALBUTEROL HFA INHALER INHALATION PRN ×3 (11:40→20:53)
[2021-08-06 11:41] LABS: Glucose,Whole Blood 203 mg/dL (75-99)
--- NOTE | 2021-08-06 12:28 | PN ---
PROGRESS NOTE FOLLOW-UP NOTE: Jaycob is a 65-year-old gentleman who is admitted to hospital with respiratory failure secondary to COVID pneumonia, had mild troponin elevation. He remains intubated and in a prone position. We are waiting to do an echocardiogram on him. On exam, heart rate is 79 beats per minute. Blood pressure is 120/64, respiratory rate is 56. Labs show that the hemoglobin is 12.3. Patient is currently on aspirin, Lipitor, Coreg and Cozaar. ASSESSMENT: 1. COVID pneumonia. 2. Respiratory failure. 3. Troponin elevation, probably due to hypoxia. PLAN: We will obtain a 2D echo on him whenever we are able to. MMHIMAL / IJN: [id number] /
--- NOTE | 2021-08-06 12:39 | P.PN ---
Subjective This is a 65-year-old male well-known to me. He had been and getting sick last Friday. He was tested for COVID-19 and was positive. Unfortunately this patient is not vaccinated. He did receive monoclonal antibody infusion. On Friday he was initiated on Decadron and colchicine due to a obesity, history of smoking and chronic pain. He presented to the emergency room and [facility] and was found to 19 pneumonia on chest x-ray. KUB due to increased shortness of breath. He was found to have a pulse oximetry of 84 in the emergency room. He is currently on a 50% nonrebreather. His pulse oximeter is improved, but he does continue to short of breath this level. Initial laboratory studies were essentially normal. Diabetes 5 Hemoglobin 53. There Is No Significant Shift. 07/29/2021: Patient is slightly improved this morning. He is on nasal cannula high flow to 15 L/m. He is not really needing the nonrebreather. Pulmonology consult was reviewed. He is been started on Olumiant. Vital signs remained stable. His most recent pulse oximetry is 91%. Heart rate regular respiratory rate 18 and 20. She remains afebrile. Laboratory studies show a leukocytosis at 10.7 today with a neutrophil left shift at 9.4. Chemistries are essentially normal. CRP was 4.3 lactate dehydrogenase is 1389. Troponin 3 was negative. Pro-calcitonin is normal 0.07. Patient remains on albuterol HFA every 6 hours as needed. Xanax as started for anxiety. He remains on atorvastatin carvedilol, losartan, cyclobenzaprine. He is anticoagulated with Lovenox. He is on dexamethasone, Olumiant. Overall he indicates he feels about the same. He feels short of breath than he activity. He is minimally short of breath at rest. He denies any nausea or vomiting. He denies having any significant appetite. 08/06/2021:The patient is now sedated with propofol and fentanyl. He is in the prone position. Hes intubated. He is paralyzed with Nimbex. Critical care is following him. Currently hes on an FiO2 of 70% in a peep of 18. CXR shows bilateral pulmonary infiltrates. Labs are pending for this morning. The patient remains on Decadron and Covid cocktail. TMAX 100.9 DEG F WBC 18.7 with 17.4 Neutrophils ABG PH 7.36, pCO2 50 pO2 84 Objective - Vital Signs Vital signs: Vital Signs Temp 100.3 F H 08/06/21 12:00 Pulse 82 08/06/21 12:00 Resp 36 H 08/06/21 12:00 BP 111/73 08/03/21 18:15 Pulse Ox 94 L 08/06/21 12:00 Intake & Output 08/05/21 08/06/21 08/06/21 18:59 06:59 18:59 Intake Total 2814.849 5430.784 610.629 Output Total 2500 1025 2225 Balance -568.203 572.784 -1614.371 Weight 107.8 kg Intake: IV 542 276 138 Sodium Chloride 0.9% 1, 500 240 120 000 ml @ 20 mls/hr IV . Q24H [facility] Rx#:[id number] pressure bag 42 36 18 Intake, IV Titration 775.797 775.784 244.629 Amount Cefepime 2 gm In Sodium 100 100 Chloride 0.9% 100 ml @ 25 mls/hr IVPB Q8HR [facility] Rx# :[id number] Cisatracurium 200 mg In 195.104 179.712 Sodium Chloride 0.9% 180 ml @ 1 MCG/KG/MIN 6.24 mls/hr IV .Q24H [facility] Rx#: [id number] Norepinephrine 4 mg In 195.908 Sodium Chloride 0.9% 250 ml @ 0.05 MCG/KG/MIN 20. 841 mls/hr IV .[id number] [facility] Rx#:[id number] fentaNYL (PF). 1,000 mcg 100 200.347 64.22 In Sodium Chloride 0.9% 80 ml @ 0.5 MCG/KG/HR 5.2 mls/hr IV .[id number] [facility] Rx#:[id number] propofoL 1,000 mg In 284.785 295.725 80.409 Empty Bag 1 bag @ Titrate IV .Q0M [facility] Rx#: [id number] Tube Feeding 494 456 228 Other 120 90 Output: Urine 2500 1025 2225 Other: Voiding Method Indwelling Catheter Indwelling Catheter Indwelling Catheter ABP, PAP, CO, CI - Last Documented Arterial Blood Pressure 99/59 - Exam GENERAL EXAM: intubated,sedated, prone NECK: No masses, no JVD. CHEST: No chest wall deformity. LUNGS: Equal air entry with bibasilar crackles. CVS: S1 and S2 normal with no audible murmur, regular rhythm. ABDOMEN:exam deferred tdue to position SKIN: No rashes CENTRAL NERVOUS SYSTEM: No focal deficits, tone is normal in all 4 extremities. EXTREMITIES: There is no peripheral edema. No clubbing, no cyanosis. Peripheral pulses are intact. - Labs CBC & Chem 7: 08/06/21 03:40 08/06/21 03:40 Labs: Abnormal Lab Results - Last 24 Hours (Table) 08/05/21 08/05/21 08/06/21 Range/Units 18:05 23:39 03:40 WBC 18.7 H (3.8-10.6) k/uL RBC 3.83 L (4.30-5.90) m/uL Hgb 12.3 L (13.0-17.5) gm/dL Hct 38.7 L (39.0-53.0) % MCV 101.2 H (80.0-100.0) fL Neutrophils # 17.4 H (1.3-7.7) k/uL Lymphocytes # 0.7 L (1.0-4.8) k/uL ABG pCO2 (35-45) mmHg ABG HCO3 (21-25) mmol/L ABG Total CO2 (19-24) mmol/L Chloride (98-107) mmol/L BUN (9-20) mg/dL Creatinine (0.66-1.25) mg/dL Glucose (74-99) mg/dL POC Glucose (mg/dL) 166 H 196 H (75-99) mg/dL Calcium (8.4-10.2) mg/dL AST (17-59) U/L ALT (4-49) U/L Total Protein (6.3-8.2) g/dL Albumin (3.5-5.0) g/dL 08/06/21 08/06/21 08/06/21 Range/Units 03:40 05:40 11:39 WBC (3.8-10.6) k/uL RBC (4.30-5.90) m/uL Hgb (13.0-17.5) gm/dL Hct (39.0-53.0) % MCV (80.0-100.0) fL Neutrophils # (1.3-7.7) k/uL Lymphocytes # (1.0-4.8) k/uL ABG pCO2 50 H (35-45) mmHg ABG HCO3 28 H (21-25) mmol/L ABG Total CO2 30 H (19-24) mmol/L Chloride 110 H (98-107) mmol/L BUN 26 H (9-20) mg/dL Creatinine 0.51 L (0.66-1.25) mg/dL Glucose 182 H (74-99) mg/dL POC Glucose (mg/dL) 203 H (75-99) mg/dL Calcium 7.9 L (8.4-10.2) mg/dL AST 75 H (17-59) U/L ALT 69 H (4-49) U/L Total Protein 5.2 L (6.3-8.2) g/dL Albumin 2.4 L (3.5-5.0) g/dL Microbiology - Last 24 Hours (Table) 08/03/21 09:40 Blood Culture - Preliminary Blood No Growth after 72 hours 08/03/21 16:43 Blood Culture - Preliminary Blood No Growth after 48 hours Assessment and Plan (1) Pneumonia Current Visit: Yes Status: Acute Code(s): J18.9 - PNEUMONIA, UNSPECIFIED ORGANISM SNOMED Code(s): 373887562 (2) COVID-19 Current Visit: Yes Status: Acute Code(s): U07.1 - COVID-19 SNOMED Code(s): 821887597 (3) Essential (primary) hypertension Current Visit: Yes Status: Acute Code(s): I10 - ESSENTIAL (PRIMARY) HYPERTENSION SNOMED Code(s): 79221851 (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 Current Visit: Yes Status: Acute Code(s): Z79.891 - SENIOR CARE (CURRENT) USE OF OPIATE ANALGESIC SNOMED Code(s): 789686842 (5) CAD (coronary artery disease) Current Visit: Yes Status: Acute Code(s): I25.10 - ATHSCL HEART DISEASE OF [place] CORONARY ARTERY W/O ANG PCTRS SNOMED Code(s): 59710133 (6) Chronic systolic (congestive) heart failure Current Visit: Yes Status: Acute Code(s): I50.22 - CHRONIC SYSTOLIC (CONGESTIVE) HEART FAILURE SNOMED Code(s): 580580400 (7) Daily consumption of alcohol Current Visit: No Status: Acute Code(s): Z78.9 - OTHER SPECIFIED HEALTH STATUS SNOMED Code(s): 620217553 (8) Former smoker Current Visit: No Status: Acute Code(s): Z87.891 - PERSONAL HISTORY OF NICOTINE DEPENDENCE SNOMED Code(s): 7448001 (9) Shortness of breath at rest Current Visit: No Status: Acute Code(s): R06.02 - SHORTNESS OF BREATH SNOMED Code(s): 773042450 (10) Pneumonia due to COVID-19 virus Current Visit: Yes Status: Acute Code(s): U07.1 - COVID-19; J12.82 - PNEUMONIA DUE TO CORONAVIRUS DISEASE 2018 SNOMED Code(s): 042865625024813502 (11) ARDS (adult respiratory distress syndrome) Current Visit: Yes Status: Acute Code(s): J80 - ACUTE RESPIRATORY DISTRESS SYNDROME SNOMED Code(s): 53753022 Plan: continue COVID protocol. critical care orders per pulmonology, Lovenoix, decadron, Cefepime, Tube feeds soon Repeat labs per protocol He'll be reevaluated in the next 24 hours.
[2021-08-06] MEDS: SODIUM CHLORIDE 0.9% 1,000 ML IV SCH (14:13)
[2021-08-06 14:36] LABS: ABG Base Excess 5.8 mmol/L; ABG HCO3 31 mmol/L (21-25); ABG Oxygen Saturation 93.9 % (94-97); ABG PCO2 50 mmHg (35-45); ABG PO2 68 mmHg (83-108); ABG TCO2 32 mmol/L (19-24); Allen Test Performed? Yes
--- NOTE | 2021-08-06 15:49 | XR ---
EXAMINATION TYPE: XR chest 1V DATE OF EXAM: 08/06/2021 CLINICAL HISTORY: Covid infection just extubated. TECHNIQUE: Single AP portable semiupright view of the chest is obtained. COMPARISON: Chest x-ray from one day earlier and older studies. FINDINGS: Stable nasogastric tube. Stable left subclavian central venous catheter. Interval removal of endotracheal tube. Bilateral multifocal opacities are redemonstrated. Cardiac silhouette size stable and within normal l imits. Multilevel spurring in the thoracic spine redemonstrated. IMPRESSION: As above. Interval extubation otherwise no significant change from one day earlier.
[2021-08-06] MEDS: ATORVASTATIN 40 MG TAB PO SCH (16:34)
--- NOTE | 2021-08-06 16:39 | XR ---
EXAMINATION TYPE: XR chest 1V confirm line [facility] DATE OF EXAM: 08/06/2021 COMPARISON: Earlier today HISTORY: 65-year-old male ET tube placement TECHNIQUE: Single frontal view of the chest is obtained. FINDINGS: ET and NG tubes are satisfactory. Left subclavian CVC tip at the mid SVC level. Heart normal size. Di ffuse groundglass interstitial changes, right greater than left persist without significant change. N o pleural effusion. IMPRESSION: 1. Satisfactory ETT tube. 2. Similar right greater than left groundglass infiltrates.
[2021-08-06 18:06] LABS: Glucose,Whole Blood 147 mg/dL (75-99)
[2021-08-06 23:48] LABS: Glucose,Whole Blood 229 mg/dL (75-99)
[2021-08-07] MEDS: INSULIN ASPART (NovoLOG) 100 UNIT/ML VIAL SQ SCH ×5 (00:03→23:59)
[2021-08-07] MEDS: CEFEPIME 2 GM in SODIUM CHLORIDE 0.9% 100 ML IVPB SCH ×4 (00:03→23:59)
[2021-08-07] MEDS: ARTIFICIAL TEARS-HYPROMELLOSE DROPS 15 ML BTL BOTH EYES SCH ×7 (00:11→23:59)
[2021-08-07] MEDS ORDERED: fentaNYL (PF) 50 MCG/ML 20 ML VIAL ONE (02:33)
[2021-08-07] MEDS: fentaNYL (PF). 1,000 MCG in SODIUM CHLORIDE 0.9% 80 ML IV SCH ×4 (02:34→20:00)
[2021-08-07 04:05] LABS: Basophils % (A) 0 %; Eosinophils # (A) 0.1 k/uL (0-0.7); Eosinophils % (A) 1 %; HCT 38.4 % (39.0-53.0); HGB 12.7 gm/dL (13.0-17.5); Lymphocytes # (A) 0.7 k/uL (1.0-4.8); Lymphocytes % (A) 4 %; MCH 33.5 pg (25.0-35.0); MCV 101.5 fL (80.0-100.0); Macrocytosis Slight; Mean Platelet Volume 7.5; Monocytes # (A) 0.3 k/uL (0-1.0); Monocytes % (A) 2 %; Neutrophils # (A) 15.5 k/uL (1.3-7.7); Neutrophils % (A) 93 %; Platelet Count 355 k/uL (150-450); RBC 3.78 m/uL (4.30-5.90); RDW 13.6 % (11.5-15.5); WBC 16.7 k/uL (3.8-10.6)
[2021-08-07 04:22] LABS: ALT 122 U/L (4-49); AST 90 U/L (17-59); African American GFR (CKD) >90 (>60 ml/min/1.73 sqM); Albumin 2.4 g/dL (3.5-5.0); Alkaline Phosphatase 124 U/L (38-126); Anion Gap 4 mmol/L; Blood Urea Nitrogen 35 mg/dL (9-20); Carbon Dioxide 30 mmol/L (22-30); Chloride 109 mmol/L (98-107); Glucose 196 mg/dL (74-99); LDH 1132 U/L (313-618); Non-African American GFR(CKD) >90 (>60 ml/min/1.73 sqM); Potassium 4.1 mmol/L (3.5-5.1); Sodium 143 mmol/L (137-145); Total Bilirubin 0.4 mg/dL (0.2-1.3); Total Protein 5.3 g/dL (6.3-8.2)
[2021-08-07 04:35] LABS: C Reactive Protein 24.9 mg/dL (<1.0)
[2021-08-07 05:58] LABS: Glucose,Whole Blood 156 mg/dL (75-99)
[2021-08-07] MEDS: carvediloL 12.5 MG TAB PO SCH (06:16)
[2021-08-07] MEDS: CISATRACURIUM 200 MG in SODIUM CHLORIDE 0.9% 180 ML IV SCH ×2 (06:38→19:57)
[2021-08-07] MEDS: PANTOPRAZOLE 40 MG/10 ML VIAL IVP SCH (08:20)
[2021-08-07] MEDS: CHLORHEXIDINE GLUCONATE 15 ML CUP MUCOUS MEM SCH ×2 (08:20→21:35)
[2021-08-07] MEDS: ENOXAPARIN 40 MG/0.4 ML SYRINGE SQ SCH (08:20)
[2021-08-07] MEDS: CHOLECALCIFEROL 25 MCG (1000 IU) TABLET PO SCH (08:21)
[2021-08-07] MEDS: ASCORBIC ACID 500 MG TAB PO SCH (08:21)
[2021-08-07] MEDS: ASPIRIN 81 MG PO SCH ×2 (08:22→21:35)
[2021-08-07] MEDS: ZINC SULFATE 220 MG CAP PO SCH (08:22)
[2021-08-07] MEDS: FUROSEMIDE 10 MG/ML 4 ML VIAL IV SCH (08:22)
[2021-08-07] MEDS: DEXAMETHASONE SOD PHOSPHATE 10 MG/ML 1 ML VIAL IVP SCH (08:22)
[2021-08-07] MEDS: LOSARTAN 25 MG TAB PO SCH (08:31)
[2021-08-07] MEDS: POTASSIUM CHLORIDE ER 20 MEQ TAB.ER PO SCH (08:31)
[2021-08-07] MEDS: ALBUTEROL HFA INHALER INHALATION PRN ×3 (08:34→14:47)
--- NOTE | 2021-08-07 08:36 | XR ---
EXAMINATION TYPE: XR chest 1V confirm line [facility] DATE OF EXAM: 08/07/2021 CLINICAL HISTORY: Difficulty breathing progress study. TECHNIQUE: Single AP portable semiupright view of the chest is obtained. COMPARISON: Chest x-ray from one day earlier and older studies. FINDINGS: Current exam suboptimal as does not include entire diaphragm and lung bases. Stable nasogastric tube. Stable left subclavian central venous catheter. Stable endotracheal tube. Bilateral multifocal opacities are redemonstrated greatest in the lower lungs. Cardiac silhouette siz e stable and within normal limits. Multilevel spurring in the thoracic spine redemonstrated. IMPRESSION: Persistent bilateral multifocal opacities greatest in the lower lungs consistent with cov id-19 infection, no significant change from one day earlier.
--- NOTE | 2021-08-07 09:29 | P.PN ---
Subjective Progress Note Date: 08/07/21 Principal diagnosis: Shortness of breath, hypoxia, COVID 19 This is 65-year-old male patient who has a history of hyperlipidemia, hypertension, anxiety, PTSD. He developed symptoms of increasing shortness of breath cough and congestion headache fever chills approximately 4 days ago. He tested positive for COVID-19 and received monoclonal antibodies by [facility]. He presented to the emergency room early this morning with worsening symptoms. The patient is not vaccinated. Chest x-ray shows bilateral patchy opacities consistent with COVID-19 pneumonia. White count 5.8. Hemoglobin 15.3. Lymphocytes 0.7. D-dimer 0.33. Sodium 134. Potassium 4.4. Creatinine 0.84. AST 56,. ALT 34. Troponins negative 3. ProBNP 54. He's been initiated on Decadron, Lovenox, vitamin supplements. He is seen today in consultation on the regular medical floor. He is already on by mouth liters high flow nasal cannula plus a nonrebreather mask. He is afebrile. Hemodynam ically stable. Dyspneic with minimal conversation. Dyspneic with minimal exertion. On 07/29/2021 patient seen in follow-up on medical surgical floor, he is currently on 15 L per high flow nasal cannula his pulse ox is 87-91%, he is afebrile, hemodynamically stable, patient has been repositioning self and then, on his left side right side, and he states he did try some prone positioning briefly.He was started on Baricitinib yesterday and he is on Decadron 6 mg daily in addition to prophylactic Lovenox. Today's labs have been reviewed, his white blood cell count is 10.7, hemoglobin is 14.4, he is actually excellent renal profile are within normal limits, he is d-dimer on admission was negative at 0.33. LDH and CRP levels are still pending, pro-calcitonin level was negative at 0.07. On 07/30/2021 patient is seen in follow-up on medical surgical floor, he remains on high flow oxygen with 15 L high flow nasal cannula and 100% nonrebreather mask, and his pulse ox of 92-94%, and in a patient was confused, and agitated at times, he was removing his oxygen desaturating, product safety professional is outside the door, doing supervision. Patient is breathing fairly comfortably, he feels like his breathing is a little easier today, has occasional cough, at times she is able to bring up some yellow and green colored phlegm, no fever or chills, he was started on Baricitinib on 07/28/2021, he is also on Decadron 6 mg daily, and Lovenox 40 mg daily. Remains on IV fluids with 0.9 normal saline at a rate of 75 ML per hour, he is on COVID-19 vitamins. Labs reviewed, white blood cell count is 12.9, hemoglobin is 14.6, platelet count is 369, his d-dimer slightly increased and is currently at 0.60, electrolytes and renal profile are within normal limits. His LDH today is increased and is up to 1634, patient had 4 sets of negative troponin at less than 0.012, proBNP was 107, pro-calcitonin level was negative at 0.07 On 08/01/2021 patient seen in follow-up on medical surgical floor. Patient is currently on 15 L and 100% nonrebreather mask, he had a rapid response team call early this morning for a concern of intermittent pleuritic chest discomfort, and pain in bilateral lower extremities. In addition patient was noted to be intermittently removing his oxygen and desaturating. Currently he is awake, he is laying in bed, however he is crying, he is complaining of pain, however he is not able to say where the pain is. O2 saturation is 91%. His been afebrile, hemodynamically stable, lower extremity Dopplers were negative for DVT. Patient is currently on Baricitinib, he is on Lovenox 40 mg daily, and Decadron. He is receiving IV fluids at a rate of 75 ML per hour. He is d-dimer is 0.76, white count is 13.3, hemoglobin is 13.7, electrolyte and renal profile are within normal limits, he is LDH has improved since admission, and is down to 572, his troponins were negative 3, and CRP is improving and is down to 2.2. On 08/02/2021 patient seen in follow-up in the intensive care unit, this morning she was emergently transferred to the ICU for worsening hypoxia, he was mateo gently intubated and placed on mechanical ventilator, currently sedated, on assist-control mode of ventilation with a rate of 36, tidal volume is 450, FiO2 100% and PEEP of 10. Patient is quite dyssyncronous with the ventilator, Nimbex has been ordered, awaiting starting the paralytic. This pulse ox is only 82%, and the PEEP has been increased to 14, awaiting follow-up blood gas. He is in sinus mechanism tachycardic with a rate of 116. He is currently on 0.9 with seen at the rate of 75 ML per hour, Diprivan is 50 mics per kilo per minute. Patient was given Nimbex 10 mg IV push, he is better synchronize, his peak air pressures 34, plateau is 31. His chest x-ray from this morning shows ET tube slightly low, just above the goivani, and we will pull back the ET tube 2 or 3 cm. There are bilateral multifocal increased opacities with worsening findings and the right upper lung. CT angiogram of the chest from yesterday showed no acute pulmonary embolism within the limitation of the study. Today's labs are still pending. Patient continues on Baricitinib, Lovenox 40 mg, Decadron. Pickett catheter has been placed, patient is producing urine, he required a brief norepinephrine support. We'll place his Lasix on hold, will discontinue oral medications. On 08/03/2021 patient is seen in follow-up in the intensive care unit, he is currently intubated, sedated and paralyzed and proned. Vent settings this morning are assist-control with a rate of 36, tidal volume is 450, FiO2 of 90% and PEEP of 10. However his pulse ox is only 86-80%, this morning's blood gas shows pO2 of 64, pCO2 41, and pH of 7.36. His peak pressure is 32, plateau is 34. Patient is currently on 0.9 normal saline at 75 ML per hour, fentanyl is a 0.5 mics per kilo per minute, norepinephrine drip is a 0.03 mics per minute, Nimbex is a 2 mics per minute per minute, Diprivan is a 50 mics per kilo per minute. He was started on tube feedings with vital HP at a rate of 30 with a goal of 34. Chest x-ray today is still pending, patient's chest x-ray will be taken when he is turned on his back at 10:00 this morning. Today's labs show uptrending white count at 17.3, hemoglobin is 13, his INR is 1.1, his d-dimer is 9.45, sodium is 136, potassium is 4.1, CO2 is 20, BUN 17 creatinine 0.67, his troponin increased to 0.3-0, cardiology has been consulted, his proBNP was 2100, cortisol level was 19, TSH was 0.031, but free T4 was 1.17, within normal limits. Pro-calcitonin level came back at 1.31 suggesting presence of bacterial infection and patient is on sitting up which we will discontinue this mo rning. Urinalysis has been sent shows no evidence of infection, patient will be pancultured. And placed on cefepime. His recent CT angiogram of the chest showed no acute PE, post recent lower extremity Dopplers from 07/30/2021 showed no evidence of DVT. Patient did have fever elevation through the night, with a T-max of 106.8F, patient received antipyretics, this morning his temperature is 100.1F. Blood cultures will be sent lactic acid will be obtained. On 08/07/2021 patient seen in follow-up in the intensive care unit. Patient is currently intubated, sedated and paralyzed on assist-control mode of ventilation with a rate of 36, tidal volume is 450, FiO2 of 70% and PEEP of 18, this morning's blood gas shows pO2 of 60, pCO2 of 50, and pH of 7.40, and this was done and FiO2 of 70%. His chest x-ray shows persistent bilateral multifocal opacities greatest in the lower lungs consistent with COVID-19 infection, with no significant change from one day earlier. Patient is currently on 0.9 normal saline at her to 20 ML per hour, fentanyl is at 1.5 mics per kilo per minute, Nimbex is a 2 mics per kilo per minute, Diprivan is a 40 mics per kilo per minute, his tube feedings are currently off. His labs have been reviewed showing white blood cell count of 16.7, hemoglobin of 12.7, d-dimer is 1.97, improving, sodium is 142, potassium is 4.1, chloride is 109, BUN is 35, creatinine 0.64, LDH is slightly improved and is down to 1132, CRP is 24.9, slightly improved from the previous value. Last pro-calcitonin level from 08/04/2021 was 1.38. Patient was being placed in prone positioning for last several days, however she started developing deep tissue injury on his face, and for that reason she was not placed in prone position last night. Patient currently remains on empiric antibiotics in the form of cefepime, blood cultures have shown no growth thus far. He is on prophylactic Lovenox, he is on Decadron 6 mg daily. He is on COVID-19 multivitamins. Yesterday we started him on IV Lasix 40 mg every 12 hours and patient is in -1.4 L net fluid balance over the last 24 hours. However his recorded weight is actually up 4 kg and we're not sure this is an accurate weight. Objective - Vital Signs Vital signs: Vital Signs Temp 99.5 F 08/07/21 00:00 Pulse 93 08/07/21 04:00 Resp 36 H 08/07/21 04:00 BP 99/63 08/06/21 17:00 Pulse Ox 87 L 08/07/21 04:00 Intake & Output 08/06/21 08/07/21 08/07/21 18:59 06:59 18:59 Intake Total 2368.383 1173.256 243.94 Output Total 2975 1540 Balance -1458.582 2.256 243.94 Weight 107.8 kg 111 kg Intake: IV 276 276 23 Sodium Chloride 0.9% 1, 240 240 20 000 ml @ 20 mls/hr IV . Q24H [facility] Rx#:[id number] pressure bag 36 36 3 Intake, IV Titration 784.418 682.256 182.94 Amount Cefepime 2 gm In Sodium 200 Chloride 0.9% 100 ml @ 25 mls/hr IVPB Q8HR [facility] Rx# :[id number] Cisatracurium 200 mg In 162.032 196.976 Sodium Chloride 0.9% 180 ml @ 1 MCG/KG/MIN 6.24 mls/hr IV .Q24H [facility] Rx#: [id number] fentaNYL (PF). 1,000 mcg 159.38 185.28 82.94 In Sodium Chloride 0.9% 80 ml @ 0.5 MCG/KG/HR 5.2 mls/hr IV .[id number] [facility] Rx#:[id number] propofoL 1,000 mg In 263.006 300 100 Empty Bag 1 bag @ Titrate IV .Q0M [facility] Rx#: [id number] Tube Feeding 456 494 38 Other 90 Output: Urine 2975 1540 Other: Voiding Method Indwelling Catheter Indwelling Catheter ABP, PAP, CO, CI - Last Documented Arterial Blood Pressure 82/55 - Exam GENERAL EXAM: Sedated, paralyzed and intubated, 65-year-old white male, in prone position, on assist-control with a rate of 36, tidal volume is 400, FiO2 70%, and PEEP of 18 HEAD: Normocephalic/atraumatic. Patient has developed a small area of deep tissue injury on the chin EYES: Normal reaction of pupils, equal size. Conjunctiva pink, sclera white. NOSE: Clear with pink turbinates. THROAT: No erythema or exudates. NECK: No masses, no JVD, no thyroid enlargement, no adenopathy. CHEST: No chest wall deformity. Symmetrical expansion. LUNGS: Equal air entry with fine rales bilaterally CVS: Regular rate and rhythm, normal S1 and S2, no gallops, no murmurs, no rubs ABDOMEN: Soft, nontender. No hepatosplenomegaly, normal bowel sounds, no guarding or rigidity. EXTREMITIES: No clubbing, no edema, no cyanosis, 2+ pulses and upper and lower extremities. MUSCULOSKELETAL: Muscle strength and tone normal. SPINE: No scoliosis or deformity SKIN: No rashes CENTRAL NERVOUS SYSTEM: Sedated No focal deficits, tone is normal in all 4 extremities. - Labs CBC & Chem 7: 08/07/21 03:45 08/07/21 03:45 Labs: Abnormal Lab Results - Last 24 Hours (Table) 08/06/21 08/06/21 08/06/21 Range/Units 11:39 14:30 18:04 WBC (3.8-10.6) k/uL RBC (4.30-5.90) m/uL Hgb (13.0-17.5) gm/dL Hct (39.0-53.0) % MCV (80.0-100.0) fL Neutrophils # (1.3-7.7) k/uL Lymphocytes # (1.0-4.8) k/uL D-Dimer (<0.60) mg/L FEU ABG pCO2 50 H (35-45) mmHg ABG pO2 68 L (83-108) mmHg ABG HCO3 31 H (21-25) mmol/L ABG Total CO2 32 H (19-24) mmol/L ABG O2 Saturation 93.9 L (94-97) % Chloride (98-107) mmol/L BUN (9-20) mg/dL Creatinine (0.66-1.25) mg/dL Glucose (74-99) mg/dL POC Glucose (mg/dL) 203 H 147 H (75-99) mg/dL Calcium (8.4-10.2) mg/dL AST (17-59) U/L ALT (4-49) U/L Lactate Dehydrogenase (313-618) U/L C-Reactive Protein (<1.0) mg/dL Total Protein (6.3-8.2) g/dL Albumin (3.5-5.0) g/dL 08/06/21 08/07/21 08/07/21 Range/Units 23:47 03:45 03:45 WBC 16.7 H (3.8-10.6) k/uL RBC 3.78 L (4.30-5.90) m/uL Hgb 12.7 L (13.0-17.5) gm/dL Hct 38.4 L (39.0-53.0) % MCV 101.5 H (80.0-100.0) fL Neutrophils # 15.5 H (1.3-7.7) k/uL Lymphocytes # 0.7 L (1.0-4.8) k/uL D-Dimer (<0.60) mg/L FEU ABG pCO2 (35-45) mmHg ABG pO2 (83-108) mmHg ABG HCO3 (21-25) mmol/L ABG Total CO2 (19-24) mmol/L ABG O2 Saturation (94-97) % Chloride 109 H (98-107) mmol/L BUN 35 H (9-20) mg/dL Creatinine 0.64 L (0.66-1.25) mg/dL Glucose 196 H (74-99) mg/dL POC Glucose (mg/dL) 229 H (75-99) mg/dL Calcium 8.0 L (8.4-10.2) mg/dL AST 90 H (17-59) U/L ALT 122 H (4-49) U/L Lactate Dehydrogenase 1132 H (313-618) U/L C-Reactive Protein 24.9 H (<1.0) mg/dL Total Protein 5.3 L (6.3-8.2) g/dL Albumin 2.4 L (3.5-5.0) g/dL 08/07/21 08/07/21 Range/Units 03:45 05:57 WBC (3.8-10.6) k/uL RBC (4.30-5.90) m/uL Hgb (13.0-17.5) gm/dL Hct (39.0-53.0) % MCV (80.0-100.0) fL Neutrophils # (1.3-7.7) k/uL Lymphocytes # (1.0-4.8) k/uL D-Dimer 1.97 H (<0.60) mg/L FEU ABG pCO2 (35-45) mmHg ABG pO2 (83-108) mmHg ABG HCO3 (21-25) mmol/L ABG Total CO2 (19-24) mmol/L ABG O2 Saturation (94-97) % Chloride (98-107) mmol/L BUN (9-20) mg/dL Creatinine (0.66-1.25) mg/dL Glucose (74-99) mg/dL POC Glucose (mg/dL) 156 H (75-99) mg/dL Calcium (8.4-10.2) mg/dL AST (17-59) U/L ALT (4-49) U/L Lactate Dehydrogenase (313-618) U/L C-Reactive Protein (<1.0) mg/dL Total Protein (6.3-8.2) g/dL Albumin (3.5-5.0) g/dL Microbiology - Last 24 Hours (Table) 08/03/21 16:43 Blood Culture - Preliminary Blood No Growth after 72 hours 08/03/21 09:40 Blood Culture - Preliminary Blood No Growth after 72 hours Assessment and Plan Plan: Assessment: #1. Acute hypoxic respiratory failure is suspected to COVID-19 pneumonia, patient presented with 5 day history of symptom onset on 07/24/2021. He status post monoclonal antibody infusion. Patient isn't nonvaccinated adult against COVID-19. Currently on 15 L high flow nasal cannula and nonrebreather mask, started on Baricitinib on 07/28/2021. Transfer to the intensive care unit on 08/02/2021 and emergently intubated. On 08/03/2021 patient remains sedated, p aralyzed and intubated and critically ill, on FiO2 of 90% and PEEP of 10. Tolerating proning #2. Suspect bacterial infection, sepsis, Baricitinib stopped this morning on 08/03/2021, cefepime was added for empiric antibiotic coverage, blood cultures are negative thus far, patient is on cefepime #3. Significantly elevated d-dimer today up to 9.45, improving. CT angiogram of chest was a limited study however showed no definitive pulmonary embolism, lower extremity Dopplers were negative for DVT. We will obtain repeat lower extremity Dopplers #4. Troponin elevation, please see cardiology consultation, this could possibly be related to profound hypoxia #5. Chronic systolic CHF #6. Hypertension #7. History of coronary artery disease #8. Hyperlipidemia #9. Chronic back pain #10. History of EtOH use, in remission #11. History of anxiety and PTSD #12. Nonsmoker Plan: Continue current vent settings, Unable to prone the patient related to patient developing pressure area on his face Baricitinib on hold, continues on cefepime Blood cultures have shown no growth We'll send a sputum culture, urinalysis showed no sign of infection We will decrease Lasix to once daily may use Norepinephrine for BP support Continue Decadron, Lovenox Continue multivitamins Continue nutritional support Overall prognosis is guarded I performed a history & physical examination of the patient and discussed their management with my nurse practitioner, Katie Snider. I reviewed the nurse practitioner's note and agree with the documented findings and plan of care. Lung sounds are positive for scattered rales throughout the lung palacio. The findings and the impression was discussed with the patient. I attest to the documentation by the nurse practitioner. Time with Patient: Greater than 30
[2021-08-07] MEDS: NOREPINEPHRINE 8 MG in SODIUM CHLORIDE 0.9% 250 ML IV SCH ×2 (09:52→19:57)
[2021-08-07 11:16] LABS: ABG Base Excess 6.9 mmol/L; ABG HCO3 32 mmol/L (21-25); ABG PCO2 50 mmHg (35-45); ABG PH 7.41 (7.35-7.45); ABG PO2 60 mmHg (83-108); ABG TCO2 33 mmol/L (19-24); Allen Test Performed? Yes
[2021-08-07 11:35] LABS: Glucose,Whole Blood 208 mg/dL (75-99)
[2021-08-07] MEDS: SODIUM CHLORIDE 0.9% 1,000 ML IV SCH (12:28)
[2021-08-07 12:37] LABS: ABG Base Excess 6.3 mmol/L; ABG HCO3 31 mmol/L (21-25); ABG Oxygen Saturation 93.3 % (94-97); ABG PCO2 52 mmHg (35-45); ABG PH 7.39 (7.35-7.45); ABG PO2 69 mmHg (83-108); ABG TCO2 33 mmol/L (19-24)
[2021-08-07 12:40] LABS: Allen Test Performed? no
--- NOTE | 2021-08-07 13:47 | PCN ---
PROCEDURE NOTE This is a 65-year-old gentleman who is admitted to hospital with respiratory failure secondary to Covid pneumonia, remains intubated on vent. On exam, heart rate is 90 beats per minute, blood pressure is 106/69, respiratory rate is 18. Labs showed a potassium of 4.1, creatinine is 0.6, hemoglobin is 12.7. Current medications include: Aspirin, Lipitor, Coreg, Cozaar, IV Lasix. ASSESSMENT: Covid pneumonia, vent requiring respiratory failure and elevated troponin. PLAN: I will obtain a 2D echo on him. MMODL / IJN: [id number] /
--- NOTE | 2021-08-07 14:12 | P.PN ---
Subjective This is a 65-year-old male well-known to me. He had been and getting sick last Friday. He was tested for COVID-19 and was positive. Unfortunately this patient is not vaccinated. He did receive monoclonal antibody infusion. On Friday he was initiated on Decadron and colchicine due to a obesity, history of smoking and chronic pain. He presented to the emergency room and [facility] and was found to 19 pneumonia on chest x-ray. KUB due to increased shortness of breath. He was found to have a pulse oximetry of 84 in the emergency room. He is currently on a 50% nonrebreather. His pulse oximeter is improved, but he does continue to short of breath this level. Initial laboratory studies were essentially normal. Diabetes 5 Hemoglobin 53. There Is No Significant Shift. 07/29/2021: Patient is slightly improved this morning. He is on nasal cannula high flow to 15 L/m. He is not really needing the nonrebreather. Pulmonology consult was reviewed. He is been started on Olumiant. Vital signs remained stable. His most recent pulse oximetry is 91%. Heart rate regular respiratory rate 18 and 20. She remains afebrile. Laboratory studies show a leukocytosis at 10.7 today with a neutrophil left shift at 9.4. Chemistries are essentially normal. CRP was 4.3 lactate dehydrogenase is 1389. Troponin 3 was negative. Pro-calcitonin is normal 0.07. Patient remains on albuterol HFA every 6 hours as needed. Xanax as started for anxiety. He remains on atorvastatin carvedilol, losartan, cyclobenzaprine. He is anticoagulated with Lovenox. He is on dexamethasone, Olumiant. Overall he indicates he feels about the same. He feels short of breath than he activity. He is minimally short of breath at rest. He denies any nausea or vomiting. He denies having any significant appetite. 08/06/2021:The patient is now sedated with propofol and fentanyl. He is in the prone position. Hes intubated. He is paralyzed with Nimbex. Critical care is following him. Currently hes on an FiO2 of 70% in a peep of 18. CXR shows bilateral pulmonary infiltrates. Labs are pending for this morning. The patient remains on Decadron and Covid cocktail. TMAX 100.9 DEG F WBC 18.7 with 17.4 Neutrophils ABG PH 7.36, pCO2 50 pO2 84 08/07/2021: Patient is currently intubated, sedated and paralyzed .Vent settings FiO2 of 70% and PEEP of 18, Patient is febrile Tmax 100.3 Deg F ABG today shows pO2 of 60, pCO2 of 50, and pH of 7.40, His chest x-ray shows no change, persistent bilateral multifocal opacities greatest in the lower lungs consistent with COVID-19 infection, blood cultures have shown no growth thus far. Labs WBC 16.7, hemoglobin of 12.7, d-dimer is 1.97, sodium is 142, potassium is 4.1, chloride is 109, BUN is 35, creatinine 0.64, LDH is down to 1132, CRP is 24.9, Patient was prone positioning for last several days, however he developed deep tissue injury on his face, and last night was placed supine. patient remains on fentanyl, Nimbex, Diprivan and feedings are currently off. Patient continues on cefepime, Lovenox, Decadron and COVID-19 multivitamins. Lasix was added yesterday. Objective - Vital Signs Vital signs: Vital Signs Temp 100.3 F H 08/07/21 08:00 Pulse 98 08/07/21 09:00 Resp 36 H 08/07/21 09:00 BP 91/63 08/07/21 09:00 Pulse Ox 88 L 08/07/21 08:00 Intake & Output 08/06/21 08/07/21 08/07/21 18:59 06:59 18:59 Intake Total 4375.490 1077.256 243.94 Output Total 2975 1540 Balance -1458.582 2.256 243.94 Weight 107.8 kg 111 kg Intake: IV 276 276 23 Sodium Chloride 0.9% 1, 240 240 20 000 ml @ 20 mls/hr IV . Q24H [facility] Rx#:[id number] pressure bag 36 36 3 Intake, IV Titration 784.418 682.256 182.94 Amount Cefepime 2 gm In Sodium 200 Chloride 0.9% 100 ml @ 25 mls/hr IVPB Q8HR [facility] Rx# :[id number] Cisatracurium 200 mg In 162.032 196.976 Sodium Chloride 0.9% 180 ml @ 1 MCG/KG/MIN 6.24 mls/hr IV .Q24H [facility] Rx#: [id number] fentaNYL (PF). 1,000 mcg 159.38 185.28 82.94 In Sodium Chloride 0.9% 80 ml @ 0.5 MCG/KG/HR 5.2 mls/hr IV .[id number] [facility] Rx#:[id number] propofoL 1,000 mg In 263.006 300 100 Empty Bag 1 bag @ Titrate IV .Q0M [facility] Rx#: [id number] Tube Feeding 456 494 38 Other 90 Output: Urine 2975 1540 Other: Voiding Method Indwelling Catheter Indwelling Catheter ABP, PAP, CO, CI - Last Documented Arterial Blood Pressure 84/54 - Exam GENERAL EXAM: intubated,sedated, prone NECK: No masses, no JVD. CHEST: No chest wall deformity. LUNGS: Equal air entry with bibasilar crackles. CVS: S1 and S2 normal with no audible murmur, regular rhythm. ABDOMEN:exam deferred tdue to position SKIN: No rashes CENTRAL NERVOUS SYSTEM: No focal deficits, tone is normal in all 4 extremities. EXTREMITIES: There is no peripheral edema. No clubbing, no cyanosis. Peripheral pulses are intact. - Labs CBC & Chem 7: 08/07/21 03:45 08/07/21 03:45 Labs: Abnormal Lab Results - Last 24 Hours (Table) 08/06/21 08/06/21 08/06/21 Range/Units 11:39 14:30 18:04 WBC (3.8-10.6) k/uL RBC (4.30-5.90) m/uL Hgb (13.0-17.5) gm/dL Hct (39.0-53.0) % MCV (80.0-100.0) fL Neutrophils # (1.3-7.7) k/uL Lymphocytes # (1.0-4.8) k/uL D-Dimer (<0.60) mg/L FEU ABG pCO2 50 H (35-45) mmHg ABG pO2 68 L (83-108) mmHg ABG HCO3 31 H (21-25) mmol/L ABG Total CO2 32 H (19-24) mmol/L ABG O2 Saturation 93.9 L (94-97) % Chloride (98-107) mmol/L BUN (9-20) mg/dL Creatinine (0.66-1.25) mg/dL Glucose (74-99) mg/dL POC Glucose (mg/dL) 203 H 147 H (75-99) mg/dL Calcium (8.4-10.2) mg/dL AST (17-59) U/L ALT (4-49) U/L Lactate Dehydrogenase (313-618) U/L C-Reactive Protein (<1.0) mg/dL Total Protein (6.3-8.2) g/dL Albumin (3.5-5.0) g/dL 08/06/21 08/07/21 08/07/21 Range/Units 23:47 03:45 03:45 WBC 16.7 H (3.8-10.6) k/uL RBC 3.78 L (4.30-5.90) m/uL Hgb 12.7 L (13.0-17.5) gm/dL Hct 38.4 L (39.0-53.0) % MCV 101.5 H (80.0-100.0) fL Neutrophils # 15.5 H (1.3-7.7) k/uL Lymphocytes # 0.7 L (1.0-4.8) k/uL D-Dimer (<0.60) mg/L FEU ABG pCO2 (35-45) mmHg ABG pO2 (83-108) mmHg ABG HCO3 (21-25) mmol/L ABG Total CO2 (19-24) mmol/L ABG O2 Saturation (94-97) % Chloride 109 H (98-107) mmol/L BUN 35 H (9-20) mg/dL Creatinine 0.64 L (0.66-1.25) mg/dL Glucose 196 H (74-99) mg/dL POC Glucose (mg/dL) 229 H (75-99) mg/dL Calcium 8.0 L (8.4-10.2) mg/dL AST 90 H (17-59) U/L ALT 122 H (4-49) U/L Lactate Dehydrogenase 1132 H (313-618) U/L C-Reactive Protein 24.9 H (<1.0) mg/dL Total Protein 5.3 L (6.3-8.2) g/dL Albumin 2.4 L (3.5-5.0) g/dL 08/07/21 08/07/21 Range/Units 03:45 05:57 WBC (3.8-10.6) k/uL RBC (4.30-5.90) m/uL Hgb (13.0-17.5) gm/dL Hct (39.0-53.0) % MCV (80.0-100.0) fL Neutrophils # (1.3-7.7) k/uL Lymphocytes # (1.0-4.8) k/uL D-Dimer 1.97 H (<0.60) mg/L FEU ABG pCO2 (35-45) mmHg ABG pO2 (83-108) mmHg ABG HCO3 (21-25) mmol/L ABG Total CO2 (19-24) mmol/L ABG O2 Saturation (94-97) % Chloride (98-107) mmol/L BUN (9-20) mg/dL Creatinine (0.66-1.25) mg/dL Glucose (74-99) mg/dL POC Glucose (mg/dL) 156 H (75-99) mg/dL Calcium (8.4-10.2) mg/dL AST (17-59) U/L ALT (4-49) U/L Lactate Dehydrogenase (313-618) U/L C-Reactive Protein (<1.0) mg/dL Total Protein (6.3-8.2) g/dL Albumin (3.5-5.0) g/dL Microbiology - Last 24 Hours (Table) 08/03/21 16:43 Blood Culture - Preliminary Blood No Growth after 72 hours 08/03/21 09:40 Blood Culture - Preliminary Blood No Growth after 72 hours Assessment and Plan (1) ARDS (adult respiratory distress syndrome) Current Visit: Yes Status: Acute Code(s): J80 - ACUTE RESPIRATORY DISTRESS SYNDROME SNOMED Code(s): 39438397 (2) Pneumonia Current Visit: Yes Status: Acute Code(s): J18.9 - PNEUMONIA, UNSPECIFIED ORGANISM SNOMED Code(s): 010956651 (3) COVID-19 Current Visit: Yes Status: Acute Code(s): U07.1 - COVID-19 SNOMED Code(s): 758769271 (4) Essential (primary) hypertension Current Visit: Yes Status: Acute Code(s): I10 - ESSENTIAL (PRIMARY) HYPERTENSION SNOMED Code(s): 46013297 (5) group home (current) use of opiate analgesic Current Visit: Yes Status: Acute Code(s): Z79.891 - SENIOR CARE (CURRENT) USE OF OPIATE ANALGESIC SNOMED Code(s): 426166694 (6) CAD (coronary artery disease) Current Visit: Yes Status: Acute Code(s): I25.10 - ATHSCL HEART DISEASE OF [place] CORONARY ARTERY W/O ANG PCTRS SNOMED Code(s): 34248429 (7) Chronic systolic (congestive) heart failure Current Visit: Yes Status: Acute Code(s): I50.22 - CHRONIC SYSTOLIC (CONGESTIVE) HEART FAILURE SNOMED Code(s): 490325885 (8) Daily consumption of alcohol Current Visit: No Status: Acute Code(s): Z78.9 - OTHER SPECIFIED HEALTH STATUS SNOMED Code(s): 967490497 (9) Former smoker Current Visit: No Status: Acute Code(s): Z87.891 - PERSONAL HISTORY OF NICOTINE DEPENDENCE SNOMED Code(s): 5567114 (10) Shortness of breath at rest Current Visit: No Status: Acute Code(s): R06.02 - SHORTNESS OF BREATH SNOMED Code(s): 839927019 (11) Pneumonia due to COVID-19 virus Current Visit: Yes Status: Acute Code(s): U07.1 - COVID-19; J12.82 - PNEUMONIA DUE TO CORONAVIRUS DISEASE 2018 SNOMED Code(s): 203447328868732324 Plan: continue COVID protocol. critical care orders per pulmonology: continue Lovenoix, decadron, Cefepime, Tube feeds on hold Repeat labs per protocol He'll be reevaluated in the next 24 hours.
[2021-08-07] MEDS: ATORVASTATIN 40 MG TAB PO SCH (17:33)
[2021-08-07] MEDS: carvediloL 3.125 MG TAB PO SCH (17:38)
[2021-08-07 17:39] LABS: Glucose,Whole Blood 270 mg/dL (75-99)
[2021-08-07 23:49] LABS: Glucose,Whole Blood 191 mg/dL (75-99)
[2021-08-08] MEDS: fentaNYL (PF). 1,000 MCG in SODIUM CHLORIDE 0.9% 80 ML IV SCH ×4 (01:55→20:39)
[2021-08-08] MEDS: ARTIFICIAL TEARS-HYPROMELLOSE DROPS 15 ML BTL BOTH EYES SCH ×5 (02:41→22:00)
[2021-08-08] MEDS: FUROSEMIDE 10 MG/ML 4 ML VIAL IV SCH (03:14)
[2021-08-08] MEDS: NOREPINEPHRINE 8 MG in SODIUM CHLORIDE 0.9% 250 ML IV SCH ×2 (03:56→17:58)
[2021-08-08 05:02] LABS: Basophils % (A) 0 %; Eosinophils # (A) 0.1 k/uL (0-0.7); Eosinophils % (A) 1 %; HCT 39.6 % (39.0-53.0); HGB 12.6 gm/dL (13.0-17.5); Hypochromasia Slight; Lymphocytes # (A) 0.8 k/uL (1.0-4.8); Lymphocytes % (A) 5 %; MCH 32.6 pg (25.0-35.0); MCHC 31.7 g/dL (31.0-37.0); MCV 102.9 fL (80.0-100.0); Macrocytosis Slight; Mean Platelet Volume 7.7; Monocytes # (A) 0.4 k/uL (0-1.0); Monocytes % (A) 2 %; Neutrophils # (A) 16.6 k/uL (1.3-7.7); Neutrophils % (A) 92 %; Platelet Count 395 k/uL (150-450); RBC 3.85 m/uL (4.30-5.90); RDW 13.7 % (11.5-15.5); WBC 18.1 k/uL (3.8-10.6)
[2021-08-08] MEDS: busPIRone HCl 5 MG TAB PO SCH (05:13)
[2021-08-08 05:21] LABS: Glucose,Whole Blood 155 mg/dL (75-99)
[2021-08-08 05:24] LABS: ALT 117 U/L (4-49); AST 139 U/L (17-59); African American GFR (CKD) >90 (>60 ml/min/1.73 sqM); Albumin 2.5 g/dL (3.5-5.0); Alkaline Phosphatase 118 U/L (38-126); Anion Gap 8 mmol/L; Blood Urea Nitrogen 37 mg/dL (9-20); Calcium 8.2 mg/dL (8.4-10.2); Carbon Dioxide 30 mmol/L (22-30); Chloride 109 mmol/L (98-107); Glucose 223 mg/dL (74-99); LDH 1254 U/L (313-618); Non-African American GFR(CKD) >90 (>60 ml/min/1.73 sqM); Potassium 4.2 mmol/L (3.5-5.1); Sodium 147 mmol/L (137-145); Total Bilirubin 0.4 mg/dL (0.2-1.3); Total Protein 5.5 g/dL (6.3-8.2)
[2021-08-08] MEDS: INSULIN ASPART (NovoLOG) 100 UNIT/ML VIAL SQ SCH ×3 (05:55→17:49)
[2021-08-08] MEDS: carvediloL 3.125 MG TAB PO SCH ×2 (05:55→16:50)
[2021-08-08] MEDS: ALBUTEROL HFA INHALER INHALATION PRN ×4 (07:19→20:18)
[2021-08-08 07:27] LABS: ABG Base Excess 5.6 mmol/L; ABG HCO3 31 mmol/L (21-25); ABG Oxygen Saturation 93.6 % (94-97); ABG PCO2 52 mmHg (35-45); ABG PH 7.38 (7.35-7.45); ABG PO2 68 mmHg (83-108); ABG TCO2 32 mmol/L (19-24); Allen Test Performed? Yes
--- NOTE | 2021-08-08 07:29 | XR ---
EXAMINATION TYPE: XR chest 1V portable DATE OF EXAM: 08/08/2021 COMPARISON: 08/07/2021 HISTORY: Shortness of breath TECHNIQUE: Single frontal view of the chest is obtained. FINDINGS: Stable nasogastric tube. Stable left subclavian central venous catheter. Stable endotrache al tube. Bilateral multifocal opacities are redemonstrated greatest in the lower lungs. Cardiac silho uette size stable and within normal limits. Multilevel spurring in the thoracic spine redemonstrated. IMPRESSION: Stable diffuse bilateral infiltrates.
[2021-08-08] MEDS: ENOXAPARIN 40 MG/0.4 ML SYRINGE SQ SCH (08:33)
[2021-08-08] MEDS: CHLORHEXIDINE GLUCONATE 15 ML CUP MUCOUS MEM SCH ×2 (08:33→22:00)
[2021-08-08] MEDS: DEXAMETHASONE SOD PHOSPHATE 10 MG/ML 1 ML VIAL IVP SCH (08:33)
[2021-08-08] MEDS: ASCORBIC ACID 500 MG TAB PO SCH (08:34)
[2021-08-08] MEDS: CHOLECALCIFEROL 25 MCG (1000 IU) TABLET PO SCH (08:34)
[2021-08-08] MEDS: PANTOPRAZOLE 40 MG/10 ML VIAL IVP SCH (08:34)
[2021-08-08] MEDS: ASPIRIN 81 MG PO SCH ×2 (08:34→22:00)
[2021-08-08] MEDS: ZINC SULFATE 220 MG CAP PO SCH (08:34)
[2021-08-08] MEDS: POTASSIUM CHLORIDE ER 20 MEQ TAB.ER PO SCH (08:34)
[2021-08-08] MEDS: CEFEPIME 2 GM in SODIUM CHLORIDE 0.9% 100 ML IVPB SCH ×2 (08:35→16:50)
[2021-08-08] MEDS: LOSARTAN 25 MG TAB PO SCH (08:37)
[2021-08-08] MEDS ORDERED: FUROSEMIDE 10 MG/ML 4 ML VIAL IV SCH (09:00)
[2021-08-08] MEDS ORDERED: ACETAMINOPHEN IV (For NPO) 1,000 MG in EMPTY BAG 1 BAG IVPB PRN (09:34)
--- NOTE | 2021-08-08 09:48 | P.PN ---
Subjective Progress Note Date: 08/08/21 Principal diagnosis: Shortness of breath, hypoxia, COVID 19 This is 65-year-old male patient who has a history of hyperlipidemia, hypertension, anxiety, PTSD. He developed symptoms of increasing shortness of breath cough and congestion headache fever chills approximately 4 days ago. He tested positive for COVID-19 and received monoclonal antibodies by [facility]. He presented to the emergency room early this morning with worsening symptoms. The patient is not vaccinated. Chest x-ray shows bilateral patchy opacities consistent with COVID-19 pneumonia. White count 5.8. Hemoglobin 15.3. Lymphocytes 0.7. D-dimer 0.33. Sodium 134. Potassium 4.4. Creatinine 0.84. AST 56,. ALT 34. Troponins negative 3. ProBNP 54. He's been initiated on Decadron, Lovenox, vitamin supplements. He is seen today in consultation on the regular medical floor. He is already on by mouth liters high flow nasal cannula plus a nonrebreather mask. He is afebrile. Hemodynam ically stable. Dyspneic with minimal conversation. Dyspneic with minimal exertion. On 07/29/2021 patient seen in follow-up on medical surgical floor, he is currently on 15 L per high flow nasal cannula his pulse ox is 87-91%, he is afebrile, hemodynamically stable, patient has been repositioning self and then, on his left side right side, and he states he did try some prone positioning briefly.He was started on Baricitinib yesterday and he is on Decadron 6 mg daily in addition to prophylactic Lovenox. Today's labs have been reviewed, his white blood cell count is 10.7, hemoglobin is 14.4, he is actually excellent renal profile are within normal limits, he is d-dimer on admission was negative at 0.33. LDH and CRP levels are still pending, pro-calcitonin level was negative at 0.07. On 07/30/2021 patient is seen in follow-up on medical surgical floor, he remains on high flow oxygen with 15 L high flow nasal cannula and 100% nonrebreather mask, and his pulse ox of 92-94%, and in a patient was confused, and agitated at times, he was removing his oxygen desaturating, food safety auditor is outside the door, doing supervision. Patient is breathing fairly comfortably, he feels like his breathing is a little easier today, has occasional cough, at times she is able to bring up some yellow and green colored phlegm, no fever or chills, he was started on Baricitinib on 07/28/2021, he is also on Decadron 6 mg daily, and Lovenox 40 mg daily. Remains on IV fluids with 0.9 normal saline at a rate of 75 ML per hour, he is on COVID-19 vitamins. Labs reviewed, white blood cell count is 12.9, hemoglobin is 14.6, platelet count is 369, his d-dimer slightly increased and is currently at 0.60, electrolytes and renal profile are within normal limits. His LDH today is increased and is up to 1634, patient had 4 sets of negative troponin at less than 0.012, proBNP was 107, pro-calcitonin level was negative at 0.07 On 08/01/2021 patient seen in follow-up on medical surgical floor. Patient is currently on 15 L and 100% nonrebreather mask, he had a rapid response team call early this morning for a concern of intermittent pleuritic chest discomfort, and pain in bilateral lower extremities. In addition patient was noted to be intermittently removing his oxygen and desaturating. Currently he is awake, he is laying in bed, however he is crying, he is complaining of pain, however he is not able to say where the pain is. O2 saturation is 91%. His been afebrile, hemodynamically stable, lower extremity Dopplers were negative for DVT. Patient is currently on Baricitinib, he is on Lovenox 40 mg daily, and Decadron. He is receiving IV fluids at a rate of 75 ML per hour. He is d-dimer is 0.76, white count is 13.3, hemoglobin is 13.7, electrolyte and renal profile are within normal limits, he is LDH has improved since admission, and is down to 572, his troponins were negative 3, and CRP is improving and is down to 2.2. On 08/02/2021 patient seen in follow-up in the intensive care unit, this morning she was emergently transferred to the ICU for worsening hypoxia, he was mateo gently intubated and placed on mechanical ventilator, currently sedated, on assist-control mode of ventilation with a rate of 36, tidal volume is 450, FiO2 100% and PEEP of 10. Patient is quite dyssyncronous with the ventilator, Nimbex has been ordered, awaiting starting the paralytic. This pulse ox is only 82%, and the PEEP has been increased to 14, awaiting follow-up blood gas. He is in sinus mechanism tachycardic with a rate of 116. He is currently on 0.9 with seen at the rate of 75 ML per hour, Diprivan is 50 mics per kilo per minute. Patient was given Nimbex 10 mg IV push, he is better synchronize, his peak air pressures 34, plateau is 31. His chest x-ray from this morning shows ET tube slightly low, just above the giovani, and we will pull back the ET tube 2 or 3 cm. There are bilateral multifocal increased opacities with worsening findings and the right upper lung. CT angiogram of the chest from yesterday showed no acute pulmonary embolism within the limitation of the study. Today's labs are still pending. Patient continues on Baricitinib, Lovenox 40 mg, Decadron. Pickett catheter has been placed, patient is producing urine, he required a brief norepinephrine support. We'll place his Lasix on hold, will discontinue oral medications. On 08/03/2021 patient is seen in follow-up in the intensive care unit, he is currently intubated, sedated and paralyzed and proned. Vent settings this morning are assist-control with a rate of 36, tidal volume is 450, FiO2 of 90% and PEEP of 10. However his pulse ox is only 86-80%, this morning's blood gas shows pO2 of 64, pCO2 41, and pH of 7.36. His peak pressure is 32, plateau is 34. Patient is currently on 0.9 normal saline at 75 ML per hour, fentanyl is a 0.5 mics per kilo per minute, norepinephrine drip is a 0.03 mics per minute, Nimbex is a 2 mics per minute per minute, Diprivan is a 50 mics per kilo per minute. He was started on tube feedings with vital HP at a rate of 30 with a goal of 34. Chest x-ray today is still pending, patient's chest x-ray will be taken when he is turned on his back at 10:00 this morning. Today's labs show uptrending white count at 17.3, hemoglobin is 13, his INR is 1.1, his d-dimer is 9.45, sodium is 136, potassium is 4.1, CO2 is 20, BUN 17 creatinine 0.67, his troponin increased to 0.3-0, cardiology has been consulted, his proBNP was 2100, cortisol level was 19, TSH was 0.031, but free T4 was 1.17, within normal limits. Pro-calcitonin level came back at 1.31 suggesting presence of bacterial infection and patient is on sitting up which we will discontinue this mo rning. Urinalysis has been sent shows no evidence of infection, patient will be pancultured. And placed on cefepime. His recent CT angiogram of the chest showed no acute PE, post recent lower extremity Dopplers from 07/30/2021 showed no evidence of DVT. Patient did have fever elevation through the night, with a T-max of 106.8F, patient received antipyretics, this morning his temperature is 100.1F. Blood cultures will be sent lactic acid will be obtained. On 08/07/2021 patient seen in follow-up in the intensive care unit. Patient is currently intubated, sedated and paralyzed on assist-control mode of ventilation with a rate of 36, tidal volume is 450, FiO2 of 70% and PEEP of 18, this morning's blood gas shows pO2 of 60, pCO2 of 50, and pH of 7.40, and this was done and FiO2 of 70%. His chest x-ray shows persistent bilateral multifocal opacities greatest in the lower lungs consistent with COVID-19 infection, with no significant change from one day earlier. Patient is currently on 0.9 normal saline at her to 20 ML per hour, fentanyl is at 1.5 mics per kilo per minute, Nimbex is a 2 mics per kilo per minute, Diprivan is a 40 mics per kilo per minute, his tube feedings are currently off. His labs have been reviewed showing white blood cell count of 16.7, hemoglobin of 12.7, d-dimer is 1.97, improving, sodium is 142, potassium is 4.1, chloride is 109, BUN is 35, creatinine 0.64, LDH is slightly improved and is down to 1132, CRP is 24.9, slightly improved from the previous value. Last pro-calcitonin level from 08/04/2021 was 1.38. Patient was being placed in prone positioning for last several days, however she started developing deep tissue injury on his face, and for that reason she was not placed in prone position last night. Patient currently remains on empiric antibiotics in the form of cefepime, blood cultures have shown no growth thus far. He is on prophylactic Lovenox, he is on Decadron 6 mg daily. He is on COVID-19 multivitamins. Yesterday we started him on IV Lasix 40 mg every 12 hours and patient is in -1.4 L net fluid balance over the last 24 hours. However his recorded weight is actually up 4 kg and we're not sure this is an accurate weight. On 08/08/2021 patient seen in follow-up in the intensive care unit, he remains intubated, sedated and paralyzed, on assist-control mode of ventilation with a rate of 36, tidal volume is 450, FiO2 of 70% and PEEP of 18, this might blood gas shows pO2 of 68, pCO2 of 52, and pH of 7.38, and this was done above mentioned ventilator settings. His peak air pressure is 36, plateau is 33. Patient is currently on 0.9 normal saline at a rate of 20 ML per hour, Diprivan is a 40 mics per kilo per minute, Nimbex is at 2 mics per kilo per minute, sentinel infusion is at 1.5 mics per kilo per minute, and norepinephrine is at 11 mics per minute. His chest x-ray today shows bilateral multifocal opacities greatest in the lower lungs, stable in appearance. Patient remains on Decadron 6 mg daily, he is on prophylactic dose Lovenox, he is on empiric antibiotics in the form of cefepime, blood and sputum cultures have been sent, blood culture has shown no growth thus far, sputum culture is showing few PMNs, rare epithelial cells, and no organisms. Patient is also on diuretics with Lasix 40 mg daily, yesterday we had to decrease the dose to once a day as the patient was developing hypotension and required norepinephrine initiation. Today's labs reviewed showing white blood cell count of 18.1, hemoglobin of 12.6, his d- dimer is 2.5 to on today's labs, serum sodium has increased to 147, potassium is 4.2, chloride is 109, B1 is 37, creatinine 0.67, his transaminases mildly increased and AST is up to 139, ALT is 117, alk phos is 118, his inflammatory markers increased and LDH is up to 1254, and CRP is up to 26 on today's labs, his last pro-calcitonin level from 08/04/2021 is 1.38, follow-up procalcitonin will be sent today. Patient was not Crohn's the last 2 days related to developing deep tissue injury on his face. In addition patient had blood pressure issues requiring vasopressor support and that was another reason for omitting prone position for last 48 hours. Feedings are on hold, and patient has not had a bowel movement. Abdomen is soft Objective - Vital Signs Vital signs: Vital Signs Temp 99.8 F H 08/08/21 04:00 Pulse 97 08/08/21 07:00 Resp 36 H 08/08/21 07:00 BP 99/60 08/08/21 07:00 Pulse Ox 91 L 08/08/21 07:00 Intake & Output 08/07/21 08/08/21 08/08/21 18:59 06:59 18:59 Intake Total 6052.898 3947.019 220.108 Output Total 1210 1070 100 Balance 273.303 626.019 120.108 Weight 111.4 kg Intake: IV 276 276 23 Sodium Chloride 0.9% 1, 240 240 20 000 ml @ 20 mls/hr IV . Q24H [facility] Rx#:[id number] pressure bag 36 36 3 Intake, IV Titration 859.303 874.019 159.108 Amount Cefepime 2 gm In Sodium 200 Chloride 0.9% 100 ml @ 25 mls/hr IVPB Q8HR [facility] Rx# :[id number] Cisatracurium 200 mg In 72.8 93.392 Sodium Chloride 0.9% 180 ml @ 1 MCG/KG/MIN 6.24 mls/hr IV .Q24H [facility] Rx#: [id number] Norepinephrine 8 mg In 106.032 298.117 2.399 Sodium Chloride 0.9% 250 ml @ 0.05 MCG/KG/MIN 10. 739 mls/hr IV .Q24H [facility] Rx#:[id number] Sodium Chloride 0.9% 1, 20 000 ml @ 20 mls/hr IV . Q24H [facility] Rx#:[id number] fentaNYL (PF). 1,000 mcg 180.44 183.82 98.28 In Sodium Chloride 0.9% 80 ml @ 0.5 MCG/KG/HR 5.2 mls/hr IV .[id number] [facility] Rx#:[id number] propofoL 1,000 mg In 280.031 298.690 58.429 Empty Bag 1 bag @ Titrate IV .Q0M [facility] Rx#: [id number] Tube Feeding 348 456 38 Other 90 Output: Urine 1210 1070 100 Other: Voiding Method Indwelling Catheter Indwelling Catheter ABP, PAP, CO, CI - Last Documented Arterial Blood Pressure 103/61 - Exam GENERAL EXAM: Sedated, paralyzed and intubated, 65-year-old white male, in prone position, on assist-control with a rate of 36, tidal volume is 400, FiO2 70%, and PEEP of 18 HEAD: Normocephalic/atraumatic. Patient has developed a small area of deep tissue injury on the chin EYES: Normal reaction of pupils, equal size. Conjunctiva pink, sclera white. NOSE: Clear with pink turbinates. THROAT: No erythema or exudates. NECK: no JVD, no thyroid enlargement, no adenopathy. Soft mobile mass on right parotid area CHEST: No chest wall deformity. Symmetrical expansion. LUNGS: Equal air entry with fine rales bilaterally CVS: Regular rate and rhythm, normal S1 and S2, no gallops, no murmurs, no rubs ABDOMEN: Soft, nontender, obese, and soft. No hepatosplenomegaly, normal bowel sounds, no guarding or rigidity. EXTREMITIES: No clubbing, no edema, no cyanosis, 2+ pulses and upper and lower extremities. MUSCULOSKELETAL: Muscle strength and tone normal. SPINE: No scoliosis or deformity SKIN: No rashes CENTRAL NERVOUS SYSTEM: Sedated No focal deficits, tone is normal in all 4 extremities. - Labs CBC & Chem 7: 08/08/21 04:00 08/08/21 04:00 Labs: Abnormal Lab Results - Last 24 Hours (Table) 08/07/21 08/07/21 08/07/21 Range/Units 05:36 11:33 12:34 WBC (3.8-10.6) k/uL RBC (4.30-5.90) m/uL Hgb (13.0-17.5) gm/dL MCV (80.0-100.0) fL Neutrophils # (1.3-7.7) k/uL Lymphocytes # (1.0-4.8) k/uL D-Dimer (<0.60) mg/L FEU ABG pCO2 50 H 52 H (35-45) mmHg ABG pO2 60 L 69 L (83-108) mmHg ABG HCO3 32 H 31 H (21-25) mmol/L ABG Total CO2 33 H 33 H (19-24) mmol/L ABG O2 Saturation 91.0 L 93.3 L (94-97) % Sodium (137-145) mmol/L Chloride (98-107) mmol/L BUN (9-20) mg/dL Glucose (74-99) mg/dL POC Glucose (mg/dL) 208 H (75-99) mg/dL Calcium (8.4-10.2) mg/dL AST (17-59) U/L ALT (4-49) U/L Lactate Dehydrogenase (313-618) U/L C-Reactive Protein (<1.0) mg/dL Total Protein (6.3-8.2) g/dL Albumin (3.5-5.0) g/dL 08/07/21 08/07/21 08/08/21 Range/Units 17:37 23:47 04:00 WBC 18.1 H (3.8-10.6) k/uL RBC 3.85 L (4.30-5.90) m/uL Hgb 12.6 L (13.0-17.5) gm/dL MCV 102.9 H (80.0-100.0) fL Neutrophils # 16.6 H (1.3-7.7) k/uL Lymphocytes # 0.8 L (1.0-4.8) k/uL D-Dimer (<0.60) mg/L FEU ABG pCO2 (35-45) mmHg ABG pO2 (83-108) mmHg ABG HCO3 (21-25) mmol/L ABG Total CO2 (19-24) mmol/L ABG O2 Saturation (94-97) % Sodium (137-145) mmol/L Chloride (98-107) mmol/L BUN (9-20) mg/dL Glucose (74-99) mg/dL POC Glucose (mg/dL) 270 H 191 H (75-99) mg/dL Calcium (8.4-10.2) mg/dL AST (17-59) U/L ALT (4-49) U/L Lactate Dehydrogenase (313-618) U/L C-Reactive Protein (<1.0) mg/dL Total Protein (6.3-8.2) g/dL Albumin (3.5-5.0) g/dL 08/08/21 08/08/21 08/08/21 Range/Units 04:00 04:00 05:20 WBC (3.8-10.6) k/uL RBC (4.30-5.90) m/uL Hgb (13.0-17.5) gm/dL MCV (80.0-100.0) fL Neutrophils # (1.3-7.7) k/uL Lymphocytes # (1.0-4.8) k/uL D-Dimer 2.52 H (<0.60) mg/L FEU ABG pCO2 (35-45) mmHg ABG pO2 (83-108) mmHg ABG HCO3 (21-25) mmol/L ABG Total CO2 (19-24) mmol/L ABG O2 Saturation (94-97) % Sodium 147 H (137-145) mmol/L Chloride 109 H (98-107) mmol/L BUN 37 H (9-20) mg/dL Glucose 223 H (74-99) mg/dL POC Glucose (mg/dL) 155 H (75-99) mg/dL Calcium 8.2 L (8.4-10.2) mg/dL AST 139 H (17-59) U/L ALT 117 H (4-49) U/L Lactate Dehydrogenase 1254 H (313-618) U/L C-Reactive Protein 26.0 H (<1.0) mg/dL Total Protein 5.5 L (6.3-8.2) g/dL Albumin 2.5 L (3.5-5.0) g/dL 08/08/21 Range/Units 07:24 WBC (3.8-10.6) k/uL RBC (4.30-5.90) m/uL Hgb (13.0-17.5) gm/dL MCV (80.0-100.0) fL Neutrophils # (1.3-7.7) k/uL Lymphocytes # (1.0-4.8) k/uL D-Dimer (<0.60) mg/L FEU ABG pCO2 52 H (35-45) mmHg ABG pO2 68 L (83-108) mmHg ABG HCO3 31 H (21-25) mmol/L ABG Total CO2 32 H (19-24) mmol/L ABG O2 Saturation 93.6 L (94-97) % Sodium (137-145) mmol/L Chloride (98-107) mmol/L BUN (9-20) mg/dL Glucose (74-99) mg/dL POC Glucose (mg/dL) (75-99) mg/dL Calcium (8.4-10.2) mg/dL AST (17-59) U/L ALT (4-49) U/L Lactate Dehydrogenase (313-618) U/L C-Reactive Protein (<1.0) mg/dL Total Protein (6.3-8.2) g/dL Albumin (3.5-5.0) g/dL Microbiology - Last 24 Hours (Table) 08/07/21 14:45 Gram Stain - Preliminary Sputum Sputum Culture - Preliminary 08/03/21 16:43 Blood Culture - Preliminary Blood No Growth after 96 hours 08/03/21 09:40 Blood Culture - Preliminary Blood No Growth after 96 hours Assessment and Plan Plan: Assessment: #1. Acute hypoxic respiratory failure is suspected to COVID-19 pneumonia, patient presented with 5 day history of symptom onset on 07/24/2021. He status post monoclonal antibody infusion. Patient isn't nonvaccinated adult against COVID-19. Currently on 15 L high flow nasal cannula and nonrebreather mask, started on Baricitinib on 07/28/2021. Transfer to the intensive care unit on 08/02/2021 and emergently intubated. On 08/08/2021 the paralytics and sedation continue, patient is currently on assist control mode of ventilation with a rate of 36, tidal volume is 450, FiO2 of 70% and PEEP of 18. We had to stop to prone positioning related to hypotension and development of deep tissue injuries on his face #2. Suspect bacterial infection, sepsis, Baricitinib stopped on 08/03/2021, cefepime was added for empiric antibiotic coverage, blood cultures are negative thus far, sputum culture is showing few PMNs, final culture is pending #3. Hypotension, requiring small dose of vasopressor support, this is likely multifactorial, related to diuretic therapy, positive pressure ventilation, high PEEP requirements, and sedation. Blood cultures and sputum cultures are negative thus far, cefepime is on #4. Significantly elevated d-dimer today up to 9.45, improving. CT angiogram of chest was a limited study however showed no definitive pulmonary embolism, lower extremity Dopplers were negative for DVT. We will obtain repeat lower extremity Dopplers #5. Troponin elevation, please see cardiology consultation, this could possibly be related to profound hypoxia, echocardiogram is ordered #6. Chronic systolic CHF #7. Hypertension #8. History of coronary artery disease #9. Hyperlipidemia #10. Chronic back pain #11. History of EtOH use, in remission #12. History of anxiety and PTSD #13. Nonsmoker #14. Hypernatremia, related to diuretic therapy, we will stop the Lasix for now and add free water flushes Plan: Continue current vent settings, Today's chest x-ray and blood gases have been reviewed, labs reviewed We will stop the Lasix for now Add free water flushes 200 mL every 6 hours Unable to prone the patient related to patient developing pressure area on his face and blood pressure issues Baricitinib on hold, continues on cefepime Blood cultures have shown no growth, sputum culture showing a few PMNs Patient has been on and off febrile We'll obtain a follow-up pro-calcitonin level Sent another set of blood cultures Continue Decadron and Lovenox Continue nutritional support Continue multivitamins Overall prognosis is extremely guarded I performed a history & physical examination of the patient and discussed their management with my nurse practitioner, Katie Snider. I reviewed the nurse practitioner's note and agree with the documented findings and plan of care. Lung sounds are positive for scattered rales throughout the lung palacio. The findings and the impression was discussed with the patient. I attest to the documentation by the nurse practitioner. Time with Patient: Greater than 30
--- NOTE | 2021-08-08 10:43 | ECHOF ---
Referral Reason:cm MEASUREMENTS -------- HEIGHT: 0.0 cm WEIGHT: 0.0 kg BP: RVIDd: 2.3 cm (< 3.3) IVSd: 1.5 cm (0.6 - 1.1) LVIDd: 4.4 cm (3.9 - 5.3) LVPWd: 1.4 cm (0.6 - 1.1) IVSs: 2.1 cm LVIDs: 2.8 cm LVPWs: 1.9 cm Ao Diam: 3.5 cm (2.0 - 3.7) AV Cusp: 2.2 cm (1.5 - 2.6) FINDINGS -------- There is mild global hypokinesis of LV . Overall left ventricular systolic function is mild-moderat desire impaired with, an EF between 40 - 45 %. There is mild aortic valve sclerosis. Mild mitral annular calcification present. The tricuspid valve was not well visualized. Unable to estimate RVSP due to inadequate TR jet spect ral doppler profile. The pulmonic valve was not well visualized. There is no pericardial effusion. CONCLUSIONS -------- 1. There is mild global hypokinesis of LV . 2. Overall left ventricular systolic function is mild-moderately impaired with, an EF between 40 - 45 %. 3. Mild mitral annular calcification present. 4. There is no pericardial effusion. FIELD SERVICES MANAGER: Radha Epperson [facility]
--- NOTE | 2021-08-08 11:30 | XR ---
EXAMINATION TYPE: XR chest 1V portable DATE OF EXAM: 08/08/2021 COMPARISON: 08/08/2021 HISTORY: Shortness of breath TECHNIQUE: Single frontal view of the chest is obtained. FINDINGS: ET and NG tube stable. Central line stable. Diffuse interstitial pattern with more marked findings involving left lower lobe stable. Underlying COPD. Small left pleural effusion. Biapical ple ural thickening. Arthropathy of the shoulders. IMPRESSION: 1. COPD correlate for interstitial infiltrates and interstitial pneumonia greater on the left.
--- NOTE | 2021-08-08 11:47 | P.PN ---
Subjective Progress Note Date: 08/08/21 Jaycob is a 65-year-old male admitted to the hospital with respiratory failure secondary to Covid pneumonia. Patient remains intubated. Patient is hypotensive today and on levo. His Coreg and Cozaar were held today due to this. Patient was in prone position and unable to obtain a repeat 2-D echo. Will order repeat echo now the patient is supine. Chest x-ray including today shows COPD with interstitial infiltrates and pneumonia. Blood pressure is 162, heart rate 90, 92% on mechanical ventilation, afebrile. Hemoglobin 12.6, d- dimer 2.52, potassium 4.2, creatinine 0.67. Continue on Cozaar, and Coreg, as tolerated with blood pressure. Objective - Vital Signs Vital signs: Vital Signs Temp 99.8 F H 08/08/21 04:00 Pulse 90 08/08/21 11:15 Resp 36 H 08/08/21 11:00 BP 103/62 08/08/21 11:15 Pulse Ox 92 L 08/08/21 11:15 Intake & Output 08/07/21 08/08/21 08/08/21 18:59 06:59 18:59 Intake Total 0195.559 0566.019 580.108 Output Total 1210 1070 1300 Balance 273.303 626.019 -719.892 Weight 111.4 kg Intake: IV 276 276 315 ACETAMINOPHEN IV (For NPO 100 ) 1,000 mg In Empty Bag 1 bag @ 400 mls/hr IVPB Q6HR PRN Rx#:[id number] Cefepime 2 gm In Sodium 100 Chloride 0.9% 100 ml @ 25 mls/hr IVPB Q8HR [facility] Rx# :[id number] Sodium Chloride 0.9% 1, 240 240 100 000 ml @ 20 mls/hr IV . Q24H [facility] Rx#:[id number] pressure bag 36 36 15 Intake, IV Titration 859.303 874.019 159.108 Amount Cefepime 2 gm In Sodium 200 Chloride 0.9% 100 ml @ 25 mls/hr IVPB Q8HR [facility] Rx# :[id number] Cisatracurium 200 mg In 72.8 93.392 Sodium Chloride 0.9% 180 ml @ 1 MCG/KG/MIN 6.24 mls/hr IV .Q24H [facility] Rx#: [id number] Norepinephrine 8 mg In 106.032 298.117 2.399 Sodium Chloride 0.9% 250 ml @ 0.05 MCG/KG/MIN 10. 739 mls/hr IV .Q24H [facility] Rx#:[id number] Sodium Chloride 0.9% 1, 20 000 ml @ 20 mls/hr IV . Q24H [facility] Rx#:[id number] fentaNYL (PF). 1,000 mcg 180.44 183.82 98.28 In Sodium Chloride 0.9% 80 ml @ 0.5 MCG/KG/HR 5.2 mls/hr IV .[id number] [facility] Rx#:[id number] propofoL 1,000 mg In 280.031 298.690 58.429 Empty Bag 1 bag @ Titrate IV .Q0M [facility] Rx#: [id number] Tube Feeding 348 456 76 Other 90 30 Output: Urine 1210 1070 1300 Other: Voiding Method Indwelling Catheter Indwelling Catheter ABP, PAP, CO, CI - Last Documented Arterial Blood Pressure 92/58 - Exam Physical exam limited due to positive Covid pneumonia PHYSICAL EXAM: VITAL SIGNS: Reviewed. GENERAL: no acute distress. RESPIRATORY: Respirations even and unlabored. Patient is mechanically ventilated NEURO: Patient is sedated - Labs CBC & Chem 7: 08/08/21 04:00 08/08/21 04:00 Labs: Abnormal Lab Results - Last 24 Hours (Table) 08/07/21 08/07/21 08/07/21 Range/Units 05:36 12:34 17:37 WBC (3.8-10.6) k/uL RBC (4.30-5.90) m/uL Hgb (13.0-17.5) gm/dL MCV (80.0-100.0) fL Neutrophils # (1.3-7.7) k/uL Lymphocytes # (1.0-4.8) k/uL D-Dimer (<0.60) mg/L FEU ABG pCO2 50 H 52 H (35-45) mmHg ABG pO2 60 L 69 L (83-108) mmHg ABG HCO3 32 H 31 H (21-25) mmol/L ABG Total CO2 33 H 33 H (19-24) mmol/L ABG O2 Saturation 91.0 L 93.3 L (94-97) % Sodium (137-145) mmol/L Chloride (98-107) mmol/L BUN (9-20) mg/dL Glucose (74-99) mg/dL POC Glucose (mg/dL) 270 H (75-99) mg/dL Calcium (8.4-10.2) mg/dL AST (17-59) U/L ALT (4-49) U/L Lactate Dehydrogenase (313-618) U/L C-Reactive Protein (<1.0) mg/dL Total Protein (6.3-8.2) g/dL Albumin (3.5-5.0) g/dL 08/07/21 08/08/21 08/08/21 Range/Units 23:47 04:00 04:00 WBC 18.1 H (3.8-10.6) k/uL RBC 3.85 L (4.30-5.90) m/uL Hgb 12.6 L (13.0-17.5) gm/dL MCV 102.9 H (80.0-100.0) fL Neutrophils # 16.6 H (1.3-7.7) k/uL Lymphocytes # 0.8 L (1.0-4.8) k/uL D-Dimer (<0.60) mg/L FEU ABG pCO2 (35-45) mmHg ABG pO2 (83-108) mmHg ABG HCO3 (21-25) mmol/L ABG Total CO2 (19-24) mmol/L ABG O2 Saturation (94-97) % Sodium 147 H (137-145) mmol/L Chloride 109 H (98-107) mmol/L BUN 37 H (9-20) mg/dL Glucose 223 H (74-99) mg/dL POC Glucose (mg/dL) 191 H (75-99) mg/dL Calcium 8.2 L (8.4-10.2) mg/dL AST 139 H (17-59) U/L ALT 117 H (4-49) U/L Lactate Dehydrogenase 1254 H (313-618) U/L C-Reactive Protein 26.0 H (<1.0) mg/dL Total Protein 5.5 L (6.3-8.2) g/dL Albumin 2.5 L (3.5-5.0) g/dL 08/08/21 08/08/21 08/08/21 Range/Units 04:00 05:20 07:24 WBC (3.8-10.6) k/uL RBC (4.30-5.90) m/uL Hgb (13.0-17.5) gm/dL MCV (80.0-100.0) fL Neutrophils # (1.3-7.7) k/uL Lymphocytes # (1.0-4.8) k/uL D-Dimer 2.52 H (<0.60) mg/L FEU ABG pCO2 52 H (35-45) mmHg ABG pO2 68 L (83-108) mmHg ABG HCO3 31 H (21-25) mmol/L ABG Total CO2 32 H (19-24) mmol/L ABG O2 Saturation 93.6 L (94-97) % Sodium (137-145) mmol/L Chloride (98-107) mmol/L BUN (9-20) mg/dL Glucose (74-99) mg/dL POC Glucose (mg/dL) 155 H (75-99) mg/dL Calcium (8.4-10.2) mg/dL AST (17-59) U/L ALT (4-49) U/L Lactate Dehydrogenase (313-618) U/L C-Reactive Protein (<1.0) mg/dL Total Protein (6.3-8.2) g/dL Albumin (3.5-5.0) g/dL Microbiology - Last 24 Hours (Table) 08/07/21 14:45 Gram Stain - Preliminary Sputum Sputum Culture - Preliminary 08/03/21 16:43 Blood Culture - Preliminary Blood No Growth after 96 hours 08/03/21 09:40 Blood Culture - Preliminary Blood No Growth after 96 hours Assessment and Plan Assessment: Respiratory failure due to Covid pneumonia requiring mechanical ventilation Elevated troponins Hypotensive Plan: Obtain a 2-D echo Hold Coreg and Cozaar for systolic pressure under 120 Continue all other current cardiac medications Continue to titrate levo as tolerated
[2021-08-08 12:05] LABS: Glucose,Whole Blood 223 mg/dL (75-99)
[2021-08-08] MEDS: SODIUM CHLORIDE 0.9% 1,000 ML IV SCH (12:28)
--- NOTE | 2021-08-08 14:53 | P.PN ---
Subjective This is a 65-year-old male well-known to me. He had been and getting sick last Friday. He was tested for COVID-19 and was positive. Unfortunately this patient is not vaccinated. He did receive monoclonal antibody infusion. On Friday he was initiated on Decadron and colchicine due to a obesity, history of smoking and chronic pain. He presented to the emergency room and [facility] and was found to 19 pneumonia on chest x-ray. KUB due to increased shortness of breath. He was found to have a pulse oximetry of 84 in the emergency room. He is currently on a 50% nonrebreather. His pulse oximeter is improved, but he does continue to short of breath this level. Initial laboratory studies were essentially normal. Diabetes 5 Hemoglobin 53. There Is No Significant Shift. 07/29/2021: Patient is slightly improved this morning. He is on nasal cannula high flow to 15 L/m. He is not really needing the nonrebreather. Pulmonology consult was reviewed. He is been started on Olumiant. Vital signs remained stable. His most recent pulse oximetry is 91%. Heart rate regular respiratory rate 18 and 20. She remains afebrile. Laboratory studies show a leukocytosis at 10.7 today with a neutrophil left shift at 9.4. Chemistries are essentially normal. CRP was 4.3 lactate dehydrogenase is 1389. Troponin 3 was negative. Pro-calcitonin is normal 0.07. Patient remains on albuterol HFA every 6 hours as needed. Xanax as started for anxiety. He remains on atorvastatin carvedilol, losartan, cyclobenzaprine. He is anticoagulated with Lovenox. He is on dexamethasone, Olumiant. Overall he indicates he feels about the same. He feels short of breath than he activity. He is minimally short of breath at rest. He denies any nausea or vomiting. He denies having any significant appetite. 08/06/2021:The patient is now sedated with propofol and fentanyl. He is in the prone position. Hes intubated. He is paralyzed with Nimbex. Critical care is following him. Currently hes on an FiO2 of 70% in a peep of 18. CXR shows bilateral pulmonary infiltrates. Labs are pending for this morning. The patient remains on Decadron and Covid cocktail. TMAX 100.9 DEG F WBC 18.7 with 17.4 Neutrophils ABG PH 7.36, pCO2 50 pO2 84 08/07/2021: Patient is currently intubated, sedated and paralyzed .Vent settings FiO2 of 70% and PEEP of 18, Patient is febrile Tmax 100.3 Deg F ABG today shows pO2 of 60, pCO2 of 50, and pH of 7.40, His chest x-ray shows no change, persistent bilateral multifocal opacities greatest in the lower lungs consistent with COVID-19 infection, blood cultures have shown no growth thus far. Labs WBC 16.7, hemoglobin of 12.7, d-dimer is 1.97, sodium is 142, potassium is 4.1, chloride is 109, BUN is 35, creatinine 0.64, LDH is down to 1132, CRP is 24.9, Patient was prone positioning for last several days, however he developed deep tissue injury on his face, and last night was placed supine. patient remains on fentanyl, Nimbex, Diprivan and feedings are currently off. Patient continues on cefepime, Lovenox, Decadron and COVID-19 multivitamins. Lasix was added yesterday. 08/08/2021: Patient is currently intubated, sedated and paralyzed .Vent settings FiO2 of 70% and PEEP of 18, Patient is febrile Tmax 100.2 Deg F ABG today shows pO2 of 60, pCO2 of 50, and pH of 7.40, His chest x-ray shows no change, persistent bilateral multifocal opacities greatest in the lower lungs consistent with COVID-19 infection, blood cultures have shown no growth thus far. Labs WBC 18.1 hemoglobin of 12.6, d-dimer is 2.52, sodium is 147, potassium is 4.2, chloride is 109, BUN is 37, creatinine 0.67, LDH is 1254, CRP is 26.0, Patient supine positioning after developing a deep tissue injury on his face when prone, patient remains on fentanyl, Nimbex, Diprivan and feedings are currently off. Patient continues on cefepime, Lovenox, Decadron and COVID-19 multivitamins. Lasix was stopped. Objective - Vital Signs Vital signs: Vital Signs Temp 99.3 F 08/08/21 12:00 Pulse 82 08/08/21 13:00 Resp 36 H 08/08/21 13:00 BP 98/65 12/22/21 13:00 Pulse Ox 94 L 08/08/21 13:00 Intake & Output 08/07/21 08/08/21 08/08/21 18:59 06:59 18:59 Intake Total 3106.739 6874.019 1126.516 Output Total 1210 1070 1630 Balance 273.303 626.019 -503.484 Weight 111.4 kg 111.4 kg Intake: IV 276 276 361 ACETAMINOPHEN IV (For NPO 100 ) 1,000 mg In Empty Bag 1 bag @ 400 mls/hr IVPB Q6HR PRN Rx#:[id number] Cefepime 2 gm In Sodium 100 Chloride 0.9% 100 ml @ 25 mls/hr IVPB Q8HR [facility] Rx# :[id number] Sodium Chloride 0.9% 1, 240 240 140 000 ml @ 20 mls/hr IV . Q24H [facility] Rx#:[id number] pressure bag 36 36 21 Intake, IV Titration 859.303 874.019 385.516 Amount Cefepime 2 gm In Sodium 200 Chloride 0.9% 100 ml @ 25 mls/hr IVPB Q8HR [facility] Rx# :[id number] Cisatracurium 200 mg In 72.8 93.392 Sodium Chloride 0.9% 180 ml @ 1 MCG/KG/MIN 6.24 mls/hr IV .Q24H [facility] Rx#: [id number] Norepinephrine 8 mg In 106.032 298.117 132.347 Sodium Chloride 0.9% 250 ml @ 0.05 MCG/KG/MIN 10. 739 mls/hr IV .Q24H [facility] Rx#:[id number] Sodium Chloride 0.9% 1, 20 000 ml @ 20 mls/hr IV . Q24H [facility] Rx#:[id number] fentaNYL (PF). 1,000 mcg 180.44 183.82 194.74 In Sodium Chloride 0.9% 80 ml @ 0.5 MCG/KG/HR 5.2 mls/hr IV .[id number] [facility] Rx#:[id number] propofoL 1,000 mg In 280.031 298.690 58.429 Empty Bag 1 bag @ Titrate IV .Q0M [facility] Rx#: [id number] Tube Feeding 348 456 150 Other 90 230 Output: Urine 1210 1070 1630 Other: Voiding Method Indwelling Catheter Indwelling Catheter ABP, PAP, CO, CI - Last Documented Arterial Blood Pressure 84/53 - Exam GENERAL EXAM: intubated,sedated, supine NECK: No masses, no JVD. CHEST: No chest wall deformity. LUNGS: Equal air entry with bibasilar crackles. CVS: S1 and S2 normal with no audible murmur, regular rhythm. ABDOMEN:exam deferred tdue to position SKIN: No rashes CENTRAL NERVOUS SYSTEM: No focal deficits, tone is normal in all 4 extremities. EXTREMITIES: There is no peripheral edema. No clubbing, no cyanosis. Peripheral pulses are intact. - Labs CBC & Chem 7: 08/08/21 04:00 08/08/21 04:00 Labs: Abnormal Lab Results - Last 24 Hours (Table) 08/07/21 08/07/21 08/08/21 Range/Units 17:37 23:47 04:00 WBC 18.1 H (3.8-10.6) k/uL RBC 3.85 L (4.30-5.90) m/uL Hgb 12.6 L (13.0-17.5) gm/dL MCV 102.9 H (80.0-100.0) fL Neutrophils # 16.6 H (1.3-7.7) k/uL Lymphocytes # 0.8 L (1.0-4.8) k/uL D-Dimer (<0.60) mg/L FEU ABG pCO2 (35-45) mmHg ABG pO2 (83-108) mmHg ABG HCO3 (21-25) mmol/L ABG Total CO2 (19-24) mmol/L ABG O2 Saturation (94-97) % Sodium (137-145) mmol/L Chloride (98-107) mmol/L BUN (9-20) mg/dL Glucose (74-99) mg/dL POC Glucose (mg/dL) 270 H 191 H (75-99) mg/dL Calcium (8.4-10.2) mg/dL AST (17-59) U/L ALT (4-49) U/L Lactate Dehydrogenase (313-618) U/L C-Reactive Protein (<1.0) mg/dL Total Protein (6.3-8.2) g/dL Albumin (3.5-5.0) g/dL 08/08/21 08/08/21 08/08/21 Range/Units 04:00 04:00 05:20 WBC (3.8-10.6) k/uL RBC (4.30-5.90) m/uL Hgb (13.0-17.5) gm/dL MCV (80.0-100.0) fL Neutrophils # (1.3-7.7) k/uL Lymphocytes # (1.0-4.8) k/uL D-Dimer 2.52 H (<0.60) mg/L FEU ABG pCO2 (35-45) mmHg ABG pO2 (83-108) mmHg ABG HCO3 (21-25) mmol/L ABG Total CO2 (19-24) mmol/L ABG O2 Saturation (94-97) % Sodium 147 H (137-145) mmol/L Chloride 109 H (98-107) mmol/L BUN 37 H (9-20) mg/dL Glucose 223 H (74-99) mg/dL POC Glucose (mg/dL) 155 H (75-99) mg/dL Calcium 8.2 L (8.4-10.2) mg/dL AST 139 H (17-59) U/L ALT 117 H (4-49) U/L Lactate Dehydrogenase 1254 H (313-618) U/L C-Reactive Protein 26.0 H (<1.0) mg/dL Total Protein 5.5 L (6.3-8.2) g/dL Albumin 2.5 L (3.5-5.0) g/dL 08/08/21 08/08/21 Range/Units 07:24 12:02 WBC (3.8-10.6) k/uL RBC (4.30-5.90) m/uL Hgb (13.0-17.5) gm/dL MCV (80.0-100.0) fL Neutrophils # (1.3-7.7) k/uL Lymphocytes # (1.0-4.8) k/uL D-Dimer (<0.60) mg/L FEU ABG pCO2 52 H (35-45) mmHg ABG pO2 68 L (83-108) mmHg ABG HCO3 31 H (21-25) mmol/L ABG Total CO2 32 H (19-24) mmol/L ABG O2 Saturation 93.6 L (94-97) % Sodium (137-145) mmol/L Chloride (98-107) mmol/L BUN (9-20) mg/dL Glucose (74-99) mg/dL POC Glucose (mg/dL) 223 H (75-99) mg/dL Calcium (8.4-10.2) mg/dL AST (17-59) U/L ALT (4-49) U/L Lactate Dehydrogenase (313-618) U/L C-Reactive Protein (<1.0) mg/dL Total Protein (6.3-8.2) g/dL Albumin (3.5-5.0) g/dL Microbiology - Last 24 Hours (Table) 08/03/21 09:40 Blood Culture - Preliminary Blood No Growth after 120 hours 08/07/21 14:45 Gram Stain - Preliminary Sputum Sputum Culture - Preliminary 08/03/21 16:43 Blood Culture - Preliminary Blood No Growth after 96 hours Assessment and Plan (1) ARDS (adult respiratory distress syndrome) Current Visit: Yes Status: Acute Code(s): J80 - ACUTE RESPIRATORY DISTRESS SYNDROME SNOMED Code(s): 67461675 (2) Pneumonia Current Visit: Yes Status: Acute Code(s): J18.9 - PNEUMONIA, UNSPECIFIED ORGANISM SNOMED Code(s): 249240133 (3) COVID-19 Current Visit: Yes Status: Acute Code(s): U07.1 - COVID-19 SNOMED Code(s): 847268653 (4) Essential (primary) hypertension Current Visit: Yes Status: Acute Code(s): I10 - ESSENTIAL (PRIMARY) HYPERTENSION SNOMED Code(s): 01707791 (5) [facility] (current) use of opiate analgesic Current Visit: Yes Status: Acute Code(s): Z79.891 - 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 ANALGESIC SNOMED Code(s): 990023154 (6) CAD (coronary artery disease) Current Visit: Yes Status: Acute Code(s): I25.10 - ATHSCL HEART DISEASE OF [place] CORONARY ARTERY W/O ANG PCTRS SNOMED Code(s): 42608710 (7) Chronic systolic (congestive) heart failure Current Visit: Yes Status: Acute Code(s): I50.22 - CHRONIC SYSTOLIC (CONGESTIVE) HEART FAILURE SNOMED Code(s): 796424571 (8) Daily consumption of alcohol Current Visit: No Status: Acute Code(s): Z78.9 - OTHER SPECIFIED HEALTH STATUS SNOMED Code(s): 739059454 (9) Former smoker Current Visit: No Status: Acute Code(s): Z87.891 - PERSONAL HISTORY OF NICOTINE DEPENDENCE SNOMED Code(s): 0203323 (10) Shortness of breath at rest Current Visit: No Status: Acute Code(s): R06.02 - SHORTNESS OF BREATH SNOMED Code(s): 823004617 (11) Pneumonia due to COVID-19 virus Current Visit: Yes Status: Acute Code(s): U07.1 - COVID-19; J12.82 - PNEUMONIA DUE TO CORONAVIRUS DISEASE 2018 SNOMED Code(s): 913981047988585016 Plan: continue COVID protocol. critical care orders per pulmonology: continue Lovenoix, decadron, Cefepime, Tube feeds at [facility] Repeat labs per protocol He'll be reevaluated in the next 24 hours.
[2021-08-08] MEDS: CISATRACURIUM 200 MG in SODIUM CHLORIDE 0.9% 180 ML IV SCH (15:44)
[2021-08-08] MEDS: ATORVASTATIN 40 MG TAB PO SCH (16:51)
[2021-08-08 17:48] LABS: Glucose,Whole Blood 268 mg/dL (75-99)
[2021-08-08 23:20] LABS: Glucose,Whole Blood 245 mg/dL (75-99)
[2021-08-09] MEDS: INSULIN ASPART (NovoLOG) 100 UNIT/ML VIAL SQ SCH ×5 (00:09→23:30)
[2021-08-09] MEDS: CEFEPIME 2 GM in SODIUM CHLORIDE 0.9% 100 ML IVPB SCH ×4 (00:09→23:14)
[2021-08-09] MEDS: ARTIFICIAL TEARS-HYPROMELLOSE DROPS 15 ML BTL BOTH EYES SCH ×7 (00:09→23:30)
[2021-08-09] MEDS: CISATRACURIUM 200 MG in SODIUM CHLORIDE 0.9% 180 ML IV SCH ×2 (00:10→14:07)
[2021-08-09] MEDS: NOREPINEPHRINE 8 MG in SODIUM CHLORIDE 0.9% 250 ML IV SCH ×2 (01:17→14:00)
[2021-08-09] MEDS: fentaNYL (PF). 1,000 MCG in SODIUM CHLORIDE 0.9% 80 ML IV SCH ×3 (02:50→23:12)
[2021-08-09 04:28] LABS: Basophils % (A) 0 %; Eosinophils # (A) 0.1 k/uL (0-0.7); Eosinophils % (A) 1 %; HCT 39.1 % (39.0-53.0); HGB 12.3 gm/dL (13.0-17.5); Hypochromasia Slight; Lymphocytes # (A) 0.9 k/uL (1.0-4.8); Lymphocytes % (A) 6 %; MCHC 31.4 g/dL (31.0-37.0); Macrocytosis Moderate; Mean Platelet Volume 7.9; Monocytes # (A) 0.4 k/uL (0-1.0); Monocytes % (A) 3 %; Neutrophils % (A) 90 %; Platelet Count 375 k/uL (150-450); RBC 3.72 m/uL (4.30-5.90); RDW 14.2 % (11.5-15.5); WBC 14.5 k/uL (3.8-10.6)
[2021-08-09 04:48] LABS: ALT 112 U/L (4-49); AST 121 U/L (17-59); African American GFR (CKD) >90 (>60 ml/min/1.73 sqM); Albumin 2.4 g/dL (3.5-5.0); Alkaline Phosphatase 98 U/L (38-126); Anion Gap 4 mmol/L; Blood Urea Nitrogen 38 mg/dL (9-20); Calcium 7.9 mg/dL (8.4-10.2); Carbon Dioxide 32 mmol/L (22-30); Chloride 112 mmol/L (98-107); Glucose 250 mg/dL (74-99); LDH 1032 U/L (313-618); Non-African American GFR(CKD) >90 (>60 ml/min/1.73 sqM); Potassium 4.5 mmol/L (3.5-5.1); Sodium 148 mmol/L (137-145); Total Bilirubin 0.3 mg/dL (0.2-1.3); Total Protein 5.2 g/dL (6.3-8.2)
[2021-08-09 05:44] LABS: Glucose,Whole Blood 221 mg/dL (75-99)
[2021-08-09 05:49] LABS: C Reactive Protein 18.4 mg/dL (<1.0)
[2021-08-09 06:06] LABS: ABG HCO3 32 mmol/L (21-25); ABG Oxygen Saturation 95.9 % (94-97); ABG PCO2 50 mmHg (35-45); ABG PH 7.41 (7.35-7.45); ABG PO2 80 mmHg (83-108); ABG TCO2 33 mmol/L (19-24)
[2021-08-09 06:14] LABS: Allen Test Performed? No
[2021-08-09] MEDS: carvediloL 3.125 MG TAB PO SCH ×2 (06:25→19:07)
[2021-08-09] MEDS: ALBUTEROL HFA INHALER INHALATION PRN ×4 (07:33→19:25)
--- NOTE | 2021-08-09 08:20 | XR ---
EXAMINATION TYPE: XR chest 1V portable DATE OF EXAM: 08/09/2021 COMPARISON: Chest x-ray 08/08/2021 HISTORY: Covid pneumonia, intubated TECHNIQUE: Single frontal view of the chest is obtained. FINDINGS: Bilateral airspace disease shows a similar appearance, there is interstitial prominence. N o evident pneumothorax or pleural effusion. Endotracheal tube and NG tube, left subclavian central ve nous catheter are overlying appropriate positions. There is no evident pneumothorax. There are overly ing artifacts. IMPRESSION: Findings similar to prior exam, consistent with patient's history of Covid pneumonia
[2021-08-09] MEDS: ASCORBIC ACID 500 MG TAB PO SCH (10:02)
[2021-08-09] MEDS: ASPIRIN 81 MG PO SCH ×2 (10:03→21:42)
[2021-08-09] MEDS: CHOLECALCIFEROL 25 MCG (1000 IU) TABLET PO SCH (10:03)
[2021-08-09] MEDS: DEXAMETHASONE SOD PHOSPHATE 10 MG/ML 1 ML VIAL IVP SCH (10:03)
[2021-08-09] MEDS: ENOXAPARIN 40 MG/0.4 ML SYRINGE SQ SCH (10:03)
[2021-08-09] MEDS: CHLORHEXIDINE GLUCONATE 15 ML CUP MUCOUS MEM SCH ×2 (10:03→21:43)
[2021-08-09] MEDS: PANTOPRAZOLE 40 MG/10 ML VIAL IVP SCH (10:04)
[2021-08-09] MEDS: POTASSIUM CHLORIDE ER 20 MEQ TAB.ER PO SCH (10:04)
[2021-08-09] MEDS: ZINC SULFATE 220 MG CAP PO SCH (10:04)
[2021-08-09] MEDS: LOSARTAN 25 MG TAB PO SCH (10:12)
--- NOTE | 2021-08-09 13:30 | P.PN ---
Subjective This is a 65-year-old male well-known to me. He had been and getting sick last Friday. He was tested for COVID-19 and was positive. Unfortunately this patient is not vaccinated. He did receive monoclonal antibody infusion. On Friday he was initiated on Decadron and colchicine due to a obesity, history of smoking and chronic pain. He presented to the emergency room and [facility] and was found to 19 pneumonia on chest x-ray. KUB due to increased shortness of breath. He was found to have a pulse oximetry of 84 in the emergency room. He is currently on a 50% nonrebreather. His pulse oximeter is improved, but he does continue to short of breath this level. Initial laboratory studies were essentially normal. Diabetes 5 Hemoglobin 53. There Is No Significant Shift. 07/29/2021: Patient is slightly improved this morning. He is on nasal cannula high flow to 15 L/m. He is not really needing the nonrebreather. Pulmonology consult was reviewed. He is been started on Olumiant. Vital signs remained stable. His most recent pulse oximetry is 91%. Heart rate regular respiratory rate 18 and 20. She remains afebrile. Laboratory studies show a leukocytosis at 10.7 today with a neutrophil left shift at 9.4. Chemistries are essentially normal. CRP was 4.3 lactate dehydrogenase is 1389. Troponin 3 was negative. Pro-calcitonin is normal 0.07. Patient remains on albuterol HFA every 6 hours as needed. Xanax as started for anxiety. He remains on atorvastatin carvedilol, losartan, cyclobenzaprine. He is anticoagulated with Lovenox. He is on dexamethasone, Olumiant. Overall he indicates he feels about the same. He feels short of breath than he activity. He is minimally short of breath at rest. He denies any nausea or vomiting. He denies having any significant appetite. 08/06/2021:The patient is now sedated with propofol and fentanyl. He is in the prone position. Hes intubated. He is paralyzed with Nimbex. Critical care is following him. Currently hes on an FiO2 of 70% in a peep of 18. CXR shows bilateral pulmonary infiltrates. Labs are pending for this morning. The patient remains on Decadron and Covid cocktail. TMAX 100.9 DEG F WBC 18.7 with 17.4 Neutrophils ABG PH 7.36, pCO2 50 pO2 84 08/07/2021: Patient is currently intubated, sedated and paralyzed .Vent settings FiO2 of 70% and PEEP of 18, Patient is febrile Tmax 100.3 Deg F ABG today shows pO2 of 60, pCO2 of 50, and pH of 7.40, His chest x-ray shows no change, persistent bilateral multifocal opacities greatest in the lower lungs consistent with COVID-19 infection, blood cultures have shown no growth thus far. Labs WBC 16.7, hemoglobin of 12.7, d-dimer is 1.97, sodium is 142, potassium is 4.1, chloride is 109, BUN is 35, creatinine 0.64, LDH is down to 1132, CRP is 24.9, Patient was prone positioning for last several days, however he developed deep tissue injury on his face, and last night was placed supine. patient remains on fentanyl, Nimbex, Diprivan and feedings are currently off. Patient continues on cefepime, Lovenox, Decadron and COVID-19 multivitamins. Lasix was added yesterday. 08/08/2021: Patient is currently intubated, sedated and paralyzed .Vent settings FiO2 of 70% and PEEP of 18, Patient is febrile Tmax 100.2 Deg F ABG today shows pO2 of 60, pCO2 of 50, and pH of 7.40, His chest x-ray shows no change, persistent bilateral multifocal opacities greatest in the lower lungs consistent with COVID-19 infection, blood cultures have shown no growth thus far. Labs WBC 18.1 hemoglobin of 12.6, d-dimer is 2.52, sodium is 147, potassium is 4.2, chloride is 109, BUN is 37, creatinine 0.67, LDH is 1254, CRP is 26.0, Patient supine positioning after developing a deep tissue injury on his face when prone, patient remains on fentanyl, Nimbex, Diprivan and feedings are currently off. Patient continues on cefepime, Lovenox, Decadron and COVID-19 multivitamins. Lasix was stopped. August 09, 2021: patient remains in abated sedated paralyzed and on blood pressure pressers. Vent setting FiO2 60%. He's peep is 18. He is now afebrile, Spiritism is 36 controlled, heart rate remains in the 80s, blood pressure with Levophed last is 108/59. White count this morning is 14.5 with him over 2.3 absolute Philzer 13. D dimer 1.87. Blood gases show a PCO2 of 50, PO 280, pH 7.41, Chemistry showed slight hypernatremia of sodium 148. Do you want is 38 cretin 0.65. Glucose is over the past 24 hours have been elevated in the 200s. Liver function tests and markers and information to Covid remain elevated Blood cultures show no growth, sputum culture showed haylee. Chest x-ray shows similar to pray exam consistent with Covid pneumonia. Patient remains on Covid protocol vitamin CD zinc anticoagulated with Lovenox, He remains Nimbex, fentanyl and diprivan to aid with vent support. cefepime for anabiotic coverage, He continues on dexamethasone Objective - Vital Signs Vital signs: Vital Signs Temp 98.6 F 08/09/21 04:00 Pulse 84 08/09/21 07:00 Resp 36 H 08/09/21 07:00 BP 121/72 08/09/21 06:45 Pulse Ox 92 L 08/09/21 07:00 Intake & Output 08/08/21 08/09/21 08/09/21 18:59 06:59 18:59 Intake Total 2122.960 1888.570 397.086 Output Total 2019 1115 75 Balance 102.960 773.570 322.086 Weight 111.4 kg 113 kg Intake: IV 576 376 23 ACETAMINOPHEN IV (For NPO 100 ) 1,000 mg In Empty Bag 1 bag @ 400 mls/hr IVPB Q6HR PRN Rx#:[id number] Cefepime 2 gm In Sodium 200 100 Chloride 0.9% 100 ml @ 25 mls/hr IVPB Q8HR [facility] Rx# :[id number] Sodium Chloride 0.9% 1, 240 240 20 000 ml @ 20 mls/hr IV . Q24H [facility] Rx#:[id number] pressure bag 36 36 3 Intake, IV Titration 781.960 868.570 337.086 Amount Cisatracurium 200 mg In 200 105.248 Sodium Chloride 0.9% 180 ml @ 1 MCG/KG/MIN 6.24 mls/hr IV .Q24H [facility] Rx#: [id number] Norepinephrine 8 mg In 228.791 220.012 247.075 Sodium Chloride 0.9% 250 ml @ 0.05 MCG/KG/MIN 10. 739 mls/hr IV .Q24H [facility] Rx#:[id number] fentaNYL (PF). 1,000 mcg 194.74 193.96 In Sodium Chloride 0.9% 80 ml @ 0.5 MCG/KG/HR 5.2 mls/hr IV .[id number] [facility] Rx#:[id number] propofoL 1,000 mg In 158.429 349.350 90.011 Empty Bag 1 bag @ Titrate IV .Q0M [facility] Rx#: [id number] Tube Feeding 335 444 37 Other 430 200 Output: Urine 2020 1115 75 Other: Voiding Method Indwelling Catheter Indwelling Catheter ABP, PAP, CO, CI - Last Documented Arterial Blood Pressure 108/59 - Exam GENERAL EXAM: intubated,sedated, supine NECK: No masses, no JVD. CHEST: No chest wall deformity. LUNGS: Equal air entry with bibasilar crackles. CVS: S1 and S2 normal with no audible murmur, regular rhythm. ABDOMEN:exam deferred tdue to position SKIN: No rashes CENTRAL NERVOUS SYSTEM: No focal deficits, tone is normal in all 4 extremities. EXTREMITIES: There is no peripheral edema. No clubbing, no cyanosis. Peripheral pulses are intact. - Labs CBC & Chem 7: 08/09/21 04:00 08/09/21 04:00 Labs: Abnormal Lab Results - Last 24 Hours (Table) 08/08/21 08/08/21 08/08/21 Range/Units 04:00 17:46 23:19 WBC (3.8-10.6) k/uL RBC (4.30-5.90) m/uL Hgb (13.0-17.5) gm/dL MCV (80.0-100.0) fL Neutrophils # (1.3-7.7) k/uL Lymphocytes # (1.0-4.8) k/uL D-Dimer (<0.60) mg/L FEU ABG pCO2 (35-45) mmHg ABG pO2 (83-108) mmHg ABG HCO3 (21-25) mmol/L ABG Total CO2 (19-24) mmol/L Sodium (137-145) mmol/L Chloride (98-107) mmol/L Carbon Dioxide (22-30) mmol/L BUN (9-20) mg/dL Creatinine (0.66-1.25) mg/dL Glucose (74-99) mg/dL POC Glucose (mg/dL) 268 H 245 H (75-99) mg/dL Calcium (8.4-10.2) mg/dL AST (17-59) U/L ALT (4-49) U/L Lactate Dehydrogenase (313-618) U/L C-Reactive Protein (<1.0) mg/dL Total Protein (6.3-8.2) g/dL Albumin (3.5-5.0) g/dL Procalcitonin 0.39 H (0.02-0.09) ng/mL 08/09/21 08/09/21 08/09/21 Range/Units 04:00 04:00 04:00 WBC 14.5 H (3.8-10.6) k/uL RBC 3.72 L (4.30-5.90) m/uL Hgb 12.3 L (13.0-17.5) gm/dL MCV 105.0 H (80.0-100.0) fL Neutrophils # 13.0 H (1.3-7.7) k/uL Lymphocytes # 0.9 L (1.0-4.8) k/uL D-Dimer (<0.60) mg/L FEU ABG pCO2 (35-45) mmHg ABG pO2 (83-108) mmHg ABG HCO3 (21-25) mmol/L ABG Total CO2 (19-24) mmol/L Sodium 148 H (137-145) mmol/L Chloride 112 H (98-107) mmol/L Carbon Dioxide 32 H (22-30) mmol/L BUN 38 H (9-20) mg/dL Creatinine 0.65 L (0.66-1.25) mg/dL Glucose 250 H (74-99) mg/dL POC Glucose (mg/dL) (75-99) mg/dL Calcium 7.9 L (8.4-10.2) mg/dL AST 121 H (17-59) U/L ALT 112 H (4-49) U/L Lactate Dehydrogenase 1032 H (313-618) U/L C-Reactive Protein 18.4 H (<1.0) mg/dL Total Protein 5.2 L (6.3-8.2) g/dL Albumin 2.4 L (3.5-5.0) g/dL Procalcitonin 0.32 H (0.02-0.09) ng/mL 08/09/21 08/09/21 08/09/21 Range/Units 04:00 05:41 05:44 WBC (3.8-10.6) k/uL RBC (4.30-5.90) m/uL Hgb (13.0-17.5) gm/dL MCV (80.0-100.0) fL Neutrophils # (1.3-7.7) k/uL Lymphocytes # (1.0-4.8) k/uL D-Dimer 1.87 H (<0.60) mg/L FEU ABG pCO2 50 H (35-45) mmHg ABG pO2 80 L (83-108) mmHg ABG HCO3 32 H (21-25) mmol/L ABG Total CO2 33 H (19-24) mmol/L Sodium (137-145) mmol/L Chloride (98-107) mmol/L Carbon Dioxide (22-30) mmol/L BUN (9-20) mg/dL Creatinine (0.66-1.25) mg/dL Glucose (74-99) mg/dL POC Glucose (mg/dL) 221 H (75-99) mg/dL Calcium (8.4-10.2) mg/dL AST (17-59) U/L ALT (4-49) U/L Lactate Dehydrogenase (313-618) U/L C-Reactive Protein (<1.0) mg/dL Total Protein (6.3-8.2) g/dL Albumin (3.5-5.0) g/dL Procalcitonin (0.02-0.09) ng/mL Microbiology - Last 24 Hours (Table) 08/08/21 11:00 Blood Culture - Preliminary Blood No Growth after 24 hours 08/03/21 09:40 Blood Culture - Final Blood No Growth after 144 hours 08/07/21 14:45 Gram Stain - Final Sputum Sputum Culture - Final Haylee albicans 08/03/21 16:43 Blood Culture - Preliminary Blood No Growth after 120 hours Assessment and Plan (1) ARDS (adult respiratory distress syndrome) Current Visit: Yes Status: Acute Code(s): J80 - ACUTE RESPIRATORY DISTRESS SYNDROME SNOMED Code(s): 71068547 (2) Pneumonia Current Visit: Yes Status: Acute Code(s): J18.9 - PNEUMONIA, UNSPECIFIED ORGANISM SNOMED Code(s): 046024398 (3) COVID-19 Current Visit: Yes Status: Acute Code(s): U07.1 - COVID-19 SNOMED Code(s): 023316149 (4) Essential (primary) hypertension Current Visit: Yes Status: Acute Code(s): I10 - ESSENTIAL (PRIMARY) HYPERTENSION SNOMED Code(s): 24641492 (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 Current Visit: Yes Status: Acute Code(s): Z79.891 - ASSISTED (CURRENT) USE OF OPIATE ANALGESIC SNOMED Code(s): 446385855 (6) CAD (coronary artery disease) Current Visit: Yes Status: Acute Code(s): I25.10 - ATHSCL HEART DISEASE OF [place] CORONARY ARTERY W/O ANG PCTRS SNOMED Code(s): 04979168 (7) Chronic systolic (congestive) heart failure Current Visit: Yes Status: Acute Code(s): I50.22 - CHRONIC SYSTOLIC (CONGESTIVE) HEART FAILURE SNOMED Code(s): 039505457 (8) Daily consumption of alcohol Current Visit: No Status: Acute Code(s): Z78.9 - OTHER SPECIFIED HEALTH STAT US SNOMED Code(s): 415990960 (9) Former smoker Current Visit: No Status: Acute Code(s): Z87.891 - PERSONAL HISTORY OF NICOTINE DEPENDENCE SNOMED Code(s): 4663736 (10) Shortness of breath at rest Current Visit: No Status: Acute Code(s): R06.02 - SHORTNESS OF BREATH SNOMED Code(s): 166098074 (11) Pneumonia due to COVID-19 virus Current Visit: Yes Status: Acute Code(s): U07.1 - COVID-19; J12.82 - PNEUMONIA DUE TO CORONAVIRUS DISEASE 2019 SNOMED Code(s): 813103762525947555 Plan: continue COVID protocol. critical care orders per pulmonology: continue Lovenoix, decadron, Cefepime, Tube feeds at goal Repeat labs per protocol He'll be reevaluated in the next 24 hours.
[2021-08-09 14:17] LABS: Glucose,Whole Blood 260 mg/dL (75-99)
[2021-08-09] MEDS: SODIUM CHLORIDE 0.9% 1,000 ML IV SCH (14:18)
--- NOTE | 2021-08-09 15:01 | P.PN ---
Subjective Progress Note Date: 08/09/21 Principal diagnosis: Shortness of breath, hypoxia, COVID 19 This is 65-year-old male patient who has a history of hyperlipidemia, hypertension, anxiety, PTSD. He developed symptoms of increasing shortness of breath cough and congestion headache fever chills approximately 4 days ago. He tested positive for COVID-19 and received monoclonal antibodies by [facility]. He presented to the emergency room early this morning with worsening symptoms. The patient is not vaccinated. Chest x-ray shows bilateral patchy opacities consistent with COVID-19 pneumonia. White count 5.8. Hemoglobin 15.3. Lymphocytes 0.7. D-dimer 0.33. Sodium 134. Potassium 4.4. Creatinine 0.84. AST 56,. ALT 34. Troponins negative 3. ProBNP 54. He's been initiated on Decadron, Lovenox, vitamin supplements. He is seen today in consultation on the regular medical floor. He is already on by mouth liters high flow nasal cannula plus a nonrebreather mask. He is afebrile. Hemodynam ically stable. Dyspneic with minimal conversation. Dyspneic with minimal exertion. On 07/29/2021 patient seen in follow-up on medical surgical floor, he is currently on 15 L per high flow nasal cannula his pulse ox is 87-91%, he is afebrile, hemodynamically stable, patient has been repositioning self and then, on his left side right side, and he states he did try some prone positioning briefly.He was started on Baricitinib yesterday and he is on Decadron 6 mg daily in addition to prophylactic Lovenox. Today's labs have been reviewed, his white blood cell count is 10.7, hemoglobin is 14.4, he is actually excellent renal profile are within normal limits, he is d-dimer on admission was negative at 0.33. LDH and CRP levels are still pending, pro-calcitonin level was negative at 0.07. On 07/30/2021 patient is seen in follow-up on medical surgical floor, he remains on high flow oxygen with 15 L high flow nasal cannula and 100% nonrebreather mask, and his pulse ox of 92-94%, and in a patient was confused, and agitated at times, he was removing his oxygen desaturating, patient safety sitter is outside the door, doing supervision. Patient is breathing fairly comfortably, he feels like his breathing is a little easier today, has occasional cough, at times she is able to bring up some yellow and green colored phlegm, no fever or chills, he was started on Baricitinib on 07/28/2021, he is also on Decadron 6 mg daily, and Lovenox 40 mg daily. Remains on IV fluids with 0.9 normal saline at a rate of 75 ML per hour, he is on COVID-19 vitamins. Labs reviewed, white blood cell count is 12.9, hemoglobin is 14.6, platelet count is 369, his d-dimer slightly increased and is currently at 0.60, electrolytes and renal profile are within normal limits. His LDH today is increased and is up to 1634, patient had 4 sets of negative troponin at less than 0.012, proBNP was 107, pro-calcitonin level was negative at 0.07 On 08/01/2021 patient seen in follow-up on medical surgical floor. Patient is currently on 15 L and 100% nonrebreather mask, he had a rapid response team call early this morning for a concern of intermittent pleuritic chest discomfort, and pain in bilateral lower extremities. In addition patient was noted to be intermittently removing his oxygen and desaturating. Currently he is awake, he is laying in bed, however he is crying, he is complaining of pain, however he is not able to say where the pain is. O2 saturation is 91%. His been afebrile, hemodynamically stable, lower extremity Dopplers were negative for DVT. Patient is currently on Baricitinib, he is on Lovenox 40 mg daily, and Decadron. He is receiving IV fluids at a rate of 75 ML per hour. He is d-dimer is 0.76, white count is 13.3, hemoglobin is 13.7, electrolyte and renal profile are within normal limits, he is LDH has improved since admission, and is down to 572, his troponins were negative 3, and CRP is improving and is down to 2.2. On 08/02/2021 patient seen in follow-up in the intensive care unit, this morning she was emergently transferred to the ICU for worsening hypoxia, he was mateo gently intubated and placed on mechanical ventilator, currently sedated, on assist-control mode of ventilation with a rate of 36, tidal volume is 450, FiO2 100% and PEEP of 10. Patient is quite dyssyncronous with the ventilator, Nimbex has been ordered, awaiting starting the paralytic. This pulse ox is only 82%, and the PEEP has been increased to 14, awaiting follow-up blood gas. He is in sinus mechanism tachycardic with a rate of 116. He is currently on 0.9 with seen at the rate of 75 ML per hour, Diprivan is 50 mics per kilo per minute. Patient was given Nimbex 10 mg IV push, he is better synchronize, his peak air pressures 34, plateau is 31. His chest x-ray from this morning shows ET tube slightly low, just above the giovani, and we will pull back the ET tube 2 or 3 cm. There are bilateral multifocal increased opacities with worsening findings and the right upper lung. CT angiogram of the chest from yesterday showed no acute pulmonary embolism within the limitation of the study. Today's labs are still pending. Patient continues on Baricitinib, Lovenox 40 mg, Decadron. Pickett catheter has been placed, patient is producing urine, he required a brief norepinephrine support. We'll place his Lasix on hold, will discontinue oral medications. On 08/03/2021 patient is seen in follow-up in the intensive care unit, he is currently intubated, sedated and paralyzed and proned. Vent settings this morning are assist-control with a rate of 36, tidal volume is 450, FiO2 of 90% and PEEP of 10. However his pulse ox is only 86-80%, this morning's blood gas shows pO2 of 64, pCO2 41, and pH of 7.36. His peak pressure is 32, plateau is 34. Patient is currently on 0.9 normal saline at 75 ML per hour, fentanyl is a 0.5 mics per kilo per minute, norepinephrine drip is a 0.03 mics per minute, Nimbex is a 2 mics per minute per minute, Diprivan is a 50 mics per kilo per minute. He was started on tube feedings with vital HP at a rate of 30 with a goal of 34. Chest x-ray today is still pending, patient's chest x-ray will be taken when he is turned on his back at 10:00 this morning. Today's labs show uptrending white count at 17.3, hemoglobin is 13, his INR is 1.1, his d-dimer is 9.45, sodium is 136, potassium is 4.1, CO2 is 20, BUN 17 creatinine 0.67, his troponin increased to 0.3-0, cardiology has been consulted, his proBNP was 2100, cortisol level was 19, TSH was 0.031, but free T4 was 1.17, within normal limits. Pro-calcitonin level came back at 1.31 suggesting presence of bacterial infection and patient is on sitting up which we will discontinue this mo rning. Urinalysis has been sent shows no evidence of infection, patient will be pancultured. And placed on cefepime. His recent CT angiogram of the chest showed no acute PE, post recent lower extremity Dopplers from 07/30/2021 showed no evidence of DVT. Patient did have fever elevation through the night, with a T-max of 106.8F, patient received antipyretics, this morning his temperature is 100.1F. Blood cultures will be sent lactic acid will be obtained. On 08/07/2021 patient seen in follow-up in the intensive care unit. Patient is currently intubated, sedated and paralyzed on assist-control mode of ventilation with a rate of 36, tidal volume is 450, FiO2 of 70% and PEEP of 18, this morning's blood gas shows pO2 of 60, pCO2 of 50, and pH of 7.40, and this was done and FiO2 of 70%. His chest x-ray shows persistent bilateral multifocal opacities greatest in the lower lungs consistent with COVID-19 infection, with no significant change from one day earlier. Patient is currently on 0.9 normal saline at her to 20 ML per hour, fentanyl is at 1.5 mics per kilo per minute, Nimbex is a 2 mics per kilo per minute, Diprivan is a 40 mics per kilo per minute, his tube feedings are currently off. His labs have been reviewed showing white blood cell count of 16.7, hemoglobin of 12.7, d-dimer is 1.97, improving, sodium is 142, potassium is 4.1, chloride is 109, BUN is 35, creatinine 0.64, LDH is slightly improved and is down to 1132, CRP is 24.9, slightly improved from the previous value. Last pro-calcitonin level from 08/04/2021 was 1.38. Patient was being placed in prone positioning for last several days, however she started developing deep tissue injury on his face, and for that reason she was not placed in prone position last night. Patient currently remains on empiric antibiotics in the form of cefepime, blood cultures have shown no growth thus far. He is on prophylactic Lovenox, he is on Decadron 6 mg daily. He is on COVID-19 multivitamins. Yesterday we started him on IV Lasix 40 mg every 12 hours and patient is in -1.4 L net fluid balance over the last 24 hours. However his recorded weight is actually up 4 kg and we're not sure this is an accurate weight. On 08/08/2021 patient seen in follow-up in the intensive care unit, he remains intubated, sedated and paralyzed, on assist-control mode of ventilation with a rate of 36, tidal volume is 450, FiO2 of 70% and PEEP of 18, this might blood gas shows pO2 of 68, pCO2 of 52, and pH of 7.38, and this was done above mentioned ventilator settings. His peak air pressure is 36, plateau is 33. Patient is currently on 0.9 normal saline at a rate of 20 ML per hour, Diprivan is a 40 mics per kilo per minute, Nimbex is at 2 mics per kilo per minute, sentinel infusion is at 1.5 mics per kilo per minute, and norepinephrine is at 11 mics per minute. His chest x-ray today shows bilateral multifocal opacities greatest in the lower lungs, stable in appearance. Patient remains on Decadron 6 mg daily, he is on prophylactic dose Lovenox, he is on empiric antibiotics in the form of cefepime, blood and sputum cultures have been sent, blood culture has shown no growth thus far, sputum culture is showing few PMNs, rare epithelial cells, and no organisms. Patient is also on diuretics with Lasix 40 mg daily, yesterday we had to decrease the dose to once a day as the patient was developing hypotension and required norepinephrine initiation. Today's labs reviewed showing white blood cell count of 18.1, hemoglobin of 12.6, his d- dimer is 2.5 to on today's labs, serum sodium has increased to 147, potassium is 4.2, chloride is 109, B1 is 37, creatinine 0.67, his transaminases mildly increased and AST is up to 139, ALT is 117, alk phos is 118, his inflammatory markers increased and LDH is up to 1254, and CRP is up to 26 on today's labs, his last pro-calcitonin level from 08/04/2021 is 1.38, follow-up procalcitonin will be sent today. Patient was not Crohn's the last 2 days related to developing deep tissue injury on his face. In addition patient had blood pressure issues requiring vasopressor support and that was another reason for omitting prone position for last 48 hours. Feedings are on hold, and patient has not had a bowel movement. Abdomen is soft On 08/09/2021 patient is seen in follow-up in the intensive care unit, he remains intubated, sedated and paralyzed on assist-control mode of ventilation, with a rate of 36, tidal labs 450, FiO2 of 60% and PEEP of 18, this morning's blood gas was reviewed showing pO2 of 80, pCO2 of 50, and pH of 7.41, and this was done on FiO2 of 60%. Today's chest x-ray has been reviewed showing bilateral airspace disease, interstitial prominence, no evidence of pneumothorax subpleural effusion, endotracheal tube, NG tube, left subclavian central venous catheter are in appropriate positions. Patient is currently on Nimbex at 2 mics per kilo per minute, he is on Diprivan at 40 mics per kilo per minute, 0.9 at a rate of 75 ML per hour, fentanyl at 1.5 mics per kilo per minute. He is still requiring vasopressor support, and he is on norepinephrine at 0.12 mics per kilo per minute. Vasopressor requirements have remained stable over the last 24 hours, urine output is adequate, the order of 75-100 ML per hour. Patient is being treated for COVID-19 pneumonia with severe hypoxic respiratory failure. He continues on Decadron, Lasix has been discontinued, Baricitinib was placed on hold, she continues on cefepime for empiric antibiotic coverage. He is on prophylactic dose of Lovenox 40 mg daily Blood and sputum cultures have been reviewed, sputum culture only showed Haylee albicans. His labs have been reviewed, his white blood cell count is improving and is down to 14.5 on today's labs, hemoglobin is 12.3, pro-calcitonin level is 0.32 on today's labs, improved over last couple of days. Serum sodium is 148, potassium is 4.5, chloride is 112, CO2 is 32, BUN is 38, creatinine 0.65, his AST is 121 and ALT is 112, slightly improved, alk phos is remains within normal limits at 98, his inflammatory markers are improving and LDH is down to 1032, and CRP is 18.4 on today's labs. Patient's serum sodium has increased, patient is receiving free water flushes with 200 mL every 6 hours, and he is tolerating his tube feedings of vital high-protein at a rate of 37 mL per hour. His urine output is adequate the order of 75-100 ML per hour, renal profile remains relatively stable, with BUN of 38, and creatinine is within normal limits at 0.65. Objective - Vital Signs Vital signs: Vital Signs Temp 98.6 F 08/09/21 04:00 Pulse 84 08/09/21 07:00 Resp 36 H 08/09/21 07:00 BP 121/72 08/09/21 06:45 Pulse Ox 92 L 08/09/21 07:00 Intake & Output 08/08/21 08/09/21 08/09/21 18:59 06:59 18:59 Intake Total 2122.960 1888.570 682.107 Output Total 2020 1115 75 Balance 102.960 773.570 607.107 Weight 111.4 kg 113 kg Intake: IV 576 376 23 ACETAMINOPHEN IV (For NPO 100 ) 1,000 mg In Empty Bag 1 bag @ 400 mls/hr IVPB Q6HR PRN Rx#:[id number] Cefepime 2 gm In Sodium 200 100 Chloride 0.9% 100 ml @ 25 mls/hr IVPB Q8HR [facility] Rx# :[id number] Sodium Chloride 0.9% 1, 240 240 20 000 ml @ 20 mls/hr IV . Q24H [facility] Rx#:[id number] pressure bag 36 36 3 Intake, IV Titration 781.960 868.570 622.107 Amount Cisatracurium 200 mg In 200 105.248 174.096 Sodium Chloride 0.9% 180 ml @ 1 MCG/KG/MIN 6.24 mls/hr IV .Q24H [facility] Rx#: [id number] Norepinephrine 8 mg In 228.791 220.012 258.000 Sodium Chloride 0.9% 250 ml @ 0.05 MCG/KG/MIN 10. 739 mls/hr IV .Q24H [facility] Rx#:[id number] fentaNYL (PF). 1,000 mcg 194.74 193.96 In Sodium Chloride 0.9% 80 ml @ 0.5 MCG/KG/HR 5.2 mls/hr IV .[id number] [facility] Rx#:[id number] propofoL 1,000 mg In 158.429 349.350 190.011 Empty Bag 1 bag @ Titrate IV .Q0M [facility] Rx#: [id number] Tube Feeding 335 444 37 Other 430 200 Output: Urine 2020 1115 75 Other: Voiding Method Indwelling Catheter Indwelling Catheter ABP, PAP, CO, CI - Last Documented Arterial Blood Pressure 108/59 - Exam GENERAL EXAM: Sedated, paralyzed and intubated, 65-year-old white male, in supine position on assist-control with a rate of 36, tidal volume is 450, FiO2 60%, and PEEP of 18 HEAD: Normocephalic/atraumatic. Patient has developed a small area of deep tissue injury on the chin EYES: Normal reaction of pupils, equal size. Conjunctiva pink, sclera white. NOSE: Clear with pink turbinates. THROAT: No erythema or exudates. NECK: no JVD, no thyroid enlargement, no adenopathy. Soft mobile mass on right parotid area CHEST: No chest wall deformity. Symmetrical expansion. LUNGS: Equal air entry with fine rales bilaterally CVS: Regular rate and rhythm, normal S1 and S2, no gallops, no murmurs, no rubs ABDOMEN: Soft, nontender, obese, and soft. No hepatosplenomegaly, normal bowel sounds, no guarding or rigidity. EXTREMITIES: No clubbing, no edema, no cyanosis, 2+ pulses and upper and lower extremities. MUSCULOSKELETAL: Muscle strength and tone normal. SPINE: No scoliosis or deformity SKIN: No rashes CENTRAL NERVOUS SYSTEM: Sedated No focal deficits, tone is normal in all 4 extremities. - Labs CBC & Chem 7: 08/09/21 04:00 08/09/21 04:00 Labs: Abnormal Lab Results - Last 24 Hours (Table) 08/08/21 08/08/21 08/08/21 Range/Units 04:00 17:46 23:19 WBC (3.8-10.6) k/uL RBC (4.30-5.90) m/uL Hgb (13.0-17.5) gm/dL MCV (80.0-100.0) fL Neutrophils # (1.3-7.7) k/uL Lymphocytes # (1.0-4.8) k/uL D-Dimer (<0.60) mg/L FEU ABG pCO2 (35-45) mmHg ABG pO2 (83-108) mmHg ABG HCO3 (21-25) mmol/L ABG Total CO2 (19-24) mmol/L Sodium (137-145) mmol/L Chloride (98-107) mmol/L Carbon Dioxide (22-30) mmol/L BUN (9-20) mg/dL Creatinine (0.66-1.25) mg/dL Glucose (74-99) mg/dL POC Glucose (mg/dL) 268 H 245 H (75-99) mg/dL Calcium (8.4-10.2) mg/dL AST (17-59) U/L ALT (4-49) U/L Lactate Dehydrogenase (313-618) U/L C-Reactive Protein (<1.0) mg/dL Total Protein (6.3-8.2) g/dL Albumin (3.5-5.0) g/dL Procalcitonin 0.39 H (0.02-0.09) ng/mL 08/09/21 08/09/21 08/09/21 Range/Units 04:00 04:00 04:00 WBC 14.5 H (3.8-10.6) k/uL RBC 3.72 L (4.30-5.90) m/uL Hgb 12.3 L (13.0-17.5) gm/dL MCV 105.0 H (80.0-100.0) fL Neutrophils # 13.0 H (1.3-7.7) k/uL Lymphocytes # 0.9 L (1.0-4.8) k/uL D-Dimer (<0.60) mg/L FEU ABG pCO2 (35-45) mmHg ABG pO2 (83-108) mmHg ABG HCO3 (21-25) mmol/L ABG Total CO2 (19-24) mmol/L Sodium 148 H (137-145) mmol/L Chloride 112 H (98-107) mmol/L Carbon Dioxide 32 H (22-30) mmol/L BUN 38 H (9-20) mg/dL Creatinine 0.65 L (0.66-1.25) mg/dL Glucose 250 H (74-99) mg/dL POC Glucose (mg/dL) (75-99) mg/dL Calcium 7.9 L (8.4-10.2) mg/dL AST 121 H (17-59) U/L ALT 112 H (4-49) U/L Lactate Dehydrogenase 1032 H (313-618) U/L C-Reactive Protein 18.4 H (<1.0) mg/dL Total Protein 5.2 L (6.3-8.2) g/dL Albumin 2.4 L (3.5-5.0) g/dL Procalcitonin 0.32 H (0.02-0.09) ng/mL 08/09/21 08/09/21 08/09/21 Range/Units 04:00 05:41 05:44 WBC (3.8-10.6) k/uL RBC (4.30-5.90) m/uL Hgb (13.0-17.5) gm/dL MCV (80.0-100.0) fL Neutrophils # (1.3-7.7) k/uL Lymphocytes # (1.0-4.8) k/uL D-Dimer 1.87 H (<0.60) mg/L FEU ABG pCO2 50 H (35-45) mmHg ABG pO2 80 L (83-108) mmHg ABG HCO3 32 H (21-25) mmol/L ABG Total CO2 33 H (19-24) mmol/L Sodium (137-145) mmol/L Chloride (98-107) mmol/L Carbon Dioxide (22-30) mmol/L BUN (9-20) mg/dL Creatinine (0.66-1.25) mg/dL Glucose (74-99) mg/dL POC Glucose (mg/dL) 221 H (75-99) mg/dL Calcium (8.4-10.2) mg/dL AST (17-59) U/L ALT (4-49) U/L Lactate Dehydrogenase (313-618) U/L C-Reactive Protein (<1.0) mg/dL Total Protein (6.3-8.2) g/dL Albumin (3.5-5.0) g/dL Procalcitonin (0.02-0.09) ng/mL 08/09/21 Range/Units 14:16 WBC (3.8-10.6) k/uL RBC (4.30-5.90) m/uL Hgb (13.0-17.5) gm/dL MCV (80.0-100.0) fL Neutrophils # (1.3-7.7) k/uL Lymphocytes # (1.0-4.8) k/uL D-Dimer (<0.60) mg/L FEU ABG pCO2 (35-45) mmHg ABG pO2 (83-108) mmHg ABG HCO3 (21-25) mmol/L ABG Total CO2 (19-24) mmol/L Sodium (137-145) mmol/L Chloride (98-107) mmol/L Carbon Dioxide (22-30) mmol/L BUN (9-20) mg/dL Creatinine (0.66-1.25) mg/dL Glucose (74-99) mg/dL POC Glucose (mg/dL) 260 H (75-99) mg/dL Calcium (8.4-10.2) mg/dL AST (17-59) U/L ALT (4-49) U/L Lactate Dehydrogenase (313-618) U/L C-Reactive Protein (<1.0) mg/dL Total Protein (6.3-8.2) g/dL Albumin (3.5-5.0) g/dL Procalcitonin (0.02-0.09) ng/mL Microbiology - Last 24 Hours (Table) 08/08/21 11:00 Blood Culture - Preliminary Blood No Growth after 24 hours 08/03/21 09:40 Blood Culture - Final Blood No Growth after 144 hours 08/07/21 14:45 Gram Stain - Final Sputum Sputum Culture - Final Haylee albicans 08/03/21 16:43 Blood Culture - Preliminary Blood No Growth after 120 hours Assessment and Plan Plan: Assessment: #1. Acute hypoxic respiratory failure is suspected to COVID-19 pneumonia, patient presented with 5 day history of symptom onset on 07/24/2021. He status post monoclonal antibody infusion. Patient isn't nonvaccinated adult against COVID-19. Currently on 15 L high flow nasal cannula and nonrebreather mask, started on Baricitinib on 07/28/2021. Transfer to the intensive care unit on 08/02/2021 and emergently intubated. On 08/09/2021 the paralytics and sedation continue, patient is currently on assist control mode of ventilation with a rate of 36, tidal volume is 450, FiO2 of 60% and PEEP of 18. We had to stop to prone positioning related to hypotension and development of deep tissue injuries on his face #2. Suspect bacterial infection, sepsis, Baricitinib stopped on 08/03/2021, cef epime was added for empiric antibiotic coverage, blood cultures are negative thus far, sputum culture is showing few PMNs, and Haylee albicans #3. Hypotension, this is likely multifactorial, related to diuretic therapy, positive pressure ventilation, high PEEP requirements, and sedation. Possibi lity of sepsis is not excluded, Blood cultures and sputum cultures are negative thus far, cefepime is on #4. Significantly elevated d-dimer today up to 9.45, improving. CT angiogram of chest was a limited study however showed no definitive pulmonary embolism, lower extremity Dopplers were negative for DVT. We will obtain repeat lower extremity Dopplers #5. Troponin elevation, please see cardiology consultation, this could possibly be related to profound hypoxia, echocardiogram showed EF of 40-45%, #6. Chronic systolic CHF #7. Hypertension #8. History of coronary artery disease #9. Hyperlipidemia #10. Chronic back pain #11. History of EtOH use, in remission #12. History of anxiety and PTSD #13. Nonsmoker #14. Hypernatremia, related to diuretic therapy, we will stop the Lasix for now and add free water flushes Plan: Continue current vent settings, Today's chest x-ray and blood gases have been reviewed, labs reviewed FiO2 is currently down to 60%, and we have been able to cut down his FiO2 over the last few days Chest x-ray shows no significant change, but no evidence of pneumothorax or pleural effusions, Continue holding Lasix for now Increase free water flushes to 300 mL every 4 hours Continue empiric antibiotics All cultures are negative right now Another set of blood cultures was sent yesterday, showing no growth thus far Pro-calcitonin level is improving Continue current dose Decadron and Lovenox Continue to support Vasopressor requirements are relatively stable, Monitor urine output Today's labs have been reviewed, renal profile is stable, D-dimer is improving Inflammatory markers are slightly improved, leukocytosis improved Continue to follow his clinical course closely I performed a history & physical examination of the patient and discussed their management with my nurse practitioner, Katie Snider. I reviewed the nurse practitioner's note and agree with the documented findings and plan of care. Lung sounds are positive for scattered rales throughout the lung palacio. The findings and the impression was discussed with the patient. I attest to the documentation by the nurse practitioner. Time with Patient: Greater than 30
[2021-08-09 18:03] LABS: Glucose,Whole Blood 248 mg/dL (75-99)
[2021-08-09] MEDS: ATORVASTATIN 40 MG TAB PO SCH (19:07)
[2021-08-09 23:22] LABS: Glucose,Whole Blood 204 mg/dL (75-99)
[2021-08-10] MEDS: NOREPINEPHRINE 8 MG in SODIUM CHLORIDE 0.9% 250 ML IV SCH ×2 (00:35→23:16)
[2021-08-10] MEDS: fentaNYL (PF). 1,000 MCG in SODIUM CHLORIDE 0.9% 80 ML IV SCH ×4 (03:10→23:16)
[2021-08-10] MEDS: ARTIFICIAL TEARS-HYPROMELLOSE DROPS 15 ML BTL BOTH EYES SCH ×6 (03:13→23:07)
[2021-08-10] MEDS: CISATRACURIUM 200 MG in SODIUM CHLORIDE 0.9% 180 ML IV SCH ×2 (04:18→17:46)
[2021-08-10 05:01] LABS: Basophils % (A) 0 %; Eosinophils # (A) 0.1 k/uL (0-0.7); Eosinophils % (A) 1 %; HCT 36.7 % (39.0-53.0); HGB 11.5 gm/dL (13.0-17.5); Hypochromasia Slight; Lymphocytes % (A) 9 %; MCH 32.5 pg (25.0-35.0); MCHC 31.3 g/dL (31.0-37.0); Macrocytosis Slight; Monocytes # (A) 0.3 k/uL (0-1.0); Monocytes % (A) 3 %; Neutrophils # (A) 9.4 k/uL (1.3-7.7); Neutrophils % (A) 86 %; Platelet Count 337 k/uL (150-450); RBC 3.53 m/uL (4.30-5.90); RDW 13.6 % (11.5-15.5); WBC 10.9 k/uL (3.8-10.6)
[2021-08-10 05:35] LABS: ALT 123 U/L (4-49); AST 101 U/L (17-59); African American GFR (CKD) >90 (>60 ml/min/1.73 sqM); Albumin 2.3 g/dL (3.5-5.0); Alkaline Phosphatase 89 U/L (38-126); Anion Gap 4 mmol/L; Blood Urea Nitrogen 38 mg/dL (9-20); C Reactive Protein 7.6 mg/dL (<1.0); Calcium 8.2 mg/dL (8.4-10.2); Carbon Dioxide 30 mmol/L (22-30); Chloride 114 mmol/L (98-107); Glucose 235 mg/dL (74-99); LDH 1012 U/L (313-618); Non-African American GFR(CKD) >90 (>60 ml/min/1.73 sqM); Potassium 4.5 mmol/L (3.5-5.1); Sodium 148 mmol/L (137-145); Total Bilirubin 0.3 mg/dL (0.2-1.3); Total Protein 5.1 g/dL (6.3-8.2)
[2021-08-10 05:55] LABS: ABG Base Excess 6.9 mmol/L; ABG HCO3 31 mmol/L (21-25); ABG Oxygen Saturation 93.6 % (94-97); ABG PCO2 49 mmHg (35-45); ABG PH 7.42 (7.35-7.45); ABG PO2 68 mmHg (83-108); ABG TCO2 33 mmol/L (19-24)
--- NOTE | 2021-08-10 06:02 | XR ---
EXAMINATION TYPE: XR chest 1V portable DATE OF EXAM: 08/10/2021 CLINICAL HISTORY: Difficulty breathing progress study. TECHNIQUE: Single AP portable semiupright view of the chest is obtained. COMPARISON: Chest x-ray from one day earlier and older studies FINDINGS: Stable nasogastric tube. Stable left subclavian central venous catheter. Stable endotrache al tube. Bilateral multifocal opacities are redemonstrated. Cardiac silhouette size stable and within normal l imits. Multilevel spurring in the thoracic spine redemonstrated. IMPRESSION: Persistent bilateral multifocal opacities consistent with covid-19 infection, no signific ant change from one day earlier.
[2021-08-10 06:11] LABS: Allen Test Performed? no
[2021-08-10 06:34] LABS: Glucose,Whole Blood 227 mg/dL (75-99)
[2021-08-10] MEDS: carvediloL 3.125 MG TAB PO SCH ×2 (06:35→17:45)
[2021-08-10] MEDS: INSULIN ASPART (NovoLOG) 100 UNIT/ML VIAL SQ SCH ×4 (06:35→23:29)
[2021-08-10] MEDS ORDERED: INSULIN DETEMIR (LEVEMIR) 100 UNIT/ML SYR SQ SCH (07:00)
[2021-08-10] MEDS: ALBUTEROL HFA INHALER INHALATION PRN ×2 (08:33→12:34)
[2021-08-10] MEDS: PANTOPRAZOLE 40 MG/10 ML VIAL IVP SCH (09:56)
[2021-08-10] MEDS: CEFEPIME 2 GM in SODIUM CHLORIDE 0.9% 100 ML IVPB SCH ×3 (09:56→23:08)
[2021-08-10] MEDS: ENOXAPARIN 40 MG/0.4 ML SYRINGE SQ SCH (10:10)
[2021-08-10] MEDS: CHLORHEXIDINE GLUCONATE 15 ML CUP MUCOUS MEM SCH ×2 (10:10→21:03)
[2021-08-10] MEDS: POTASSIUM CHLORIDE ER 20 MEQ TAB.ER PO SCH (10:11)
[2021-08-10] MEDS: CHOLECALCIFEROL 25 MCG (1000 IU) TABLET PO SCH (10:11)
[2021-08-10] MEDS: DEXAMETHASONE SOD PHOSPHATE 10 MG/ML 1 ML VIAL IVP SCH (10:11)
[2021-08-10] MEDS: ZINC SULFATE 220 MG CAP PO SCH (10:11)
[2021-08-10] MEDS: ASPIRIN 81 MG PO SCH ×2 (10:11→21:04)
[2021-08-10] MEDS: ASCORBIC ACID 500 MG TAB PO SCH (10:13)
[2021-08-10] MEDS: LOSARTAN 25 MG TAB PO SCH (10:14)
--- NOTE | 2021-08-10 11:20 | P.PN ---
Subjective This is a 65-year-old male well-known to me. He had been and getting sick last Friday. He was tested for COVID-19 and was positive. Unfortunately this patient is not vaccinated. He did receive monoclonal antibody infusion. On Friday he was initiated on Decadron and colchicine due to a obesity, history of smoking and chronic pain. He presented to the emergency room and [facility] and was found to 19 pneumonia on chest x-ray. KUB due to increased shortness of breath. He was found to have a pulse oximetry of 84 in the emergency room. He is currently on a 50% nonrebreather. His pulse oximeter is improved, but he does continue to short of breath this level. Initial laboratory studies were essentially normal. Diabetes 5 Hemoglobin 53. There Is No Significant Shift. 07/29/2021: Patient is slightly improved this morning. He is on nasal cannula high flow to 15 L/m. He is not really needing the nonrebreather. Pulmonology consult was reviewed. He is been started on Olumiant. Vital signs remained stable. His most recent pulse oximetry is 91%. Heart rate regular respiratory rate 18 and 20. She remains afebrile. Laboratory studies show a leukocytosis at 10.7 today with a neutrophil left shift at 9.4. Chemistries are essentially normal. CRP was 4.3 lactate dehydrogenase is 1389. Troponin 3 was negative. Pro-calcitonin is normal 0.07. Patient remains on albuterol HFA every 6 hours as needed. Xanax as started for anxiety. He remains on atorvastatin carvedilol, losartan, cyclobenzaprine. He is anticoagulated with Lovenox. He is on dexamethasone, Olumiant. Overall he indicates he feels about the same. He feels short of breath than he activity. He is minimally short of breath at rest. He denies any nausea or vomiting. He denies having any significant appetite. 08/06/2021:The patient is now sedated with propofol and fentanyl. He is in the prone position. Hes intubated. He is paralyzed with Nimbex. Critical care is following him. Currently hes on an FiO2 of 70% in a peep of 18. CXR shows bilateral pulmonary infiltrates. Labs are pending for this morning. The patient remains on Decadron and Covid cocktail. TMAX 100.9 DEG F WBC 18.7 with 17.4 Neutrophils ABG PH 7.36, pCO2 50 pO2 84 08/07/2021: Patient is currently intubated, sedated and paralyzed .Vent settings FiO2 of 70% and PEEP of 18, Patient is febrile Tmax 100.3 Deg F ABG today shows pO2 of 60, pCO2 of 50, and pH of 7.40, His chest x-ray shows no change, persistent bilateral multifocal opacities greatest in the lower lungs consistent with COVID-19 infection, blood cultures have shown no growth thus far. Labs WBC 16.7, hemoglobin of 12.7, d-dimer is 1.97, sodium is 142, potassium is 4.1, chloride is 109, BUN is 35, creatinine 0.64, LDH is down to 1132, CRP is 24.9, Patient was prone positioning for last several days, however he developed deep tissue injury on his face, and last night was placed supine. patient remains on fentanyl, Nimbex, Diprivan and feedings are currently off. Patient continues on cefepime, Lovenox, Decadron and COVID-19 multivitamins. Lasix was added yesterday. 08/08/2021: Patient is currently intubated, sedated and paralyzed .Vent settings FiO2 of 70% and PEEP of 18, Patient is febrile Tmax 100.2 Deg F ABG today shows pO2 of 60, pCO2 of 50, and pH of 7.40, His chest x-ray shows no change, persistent bilateral multifocal opacities greatest in the lower lungs consistent with COVID-19 infection, blood cultures have shown no growth thus far. Labs WBC 18.1 hemoglobin of 12.6, d-dimer is 2.52, sodium is 147, potassium is 4.2, chloride is 109, BUN is 37, creatinine 0.67, LDH is 1254, CRP is 26.0, Patient supine positioning after developing a deep tissue injury on his face when prone, patient remains on fentanyl, Nimbex, Diprivan and feedings are currently off. Patient continues on cefepime, Lovenox, Decadron and COVID-19 multivitamins. Lasix was stopped. August 09, 2021: patient remains in abated sedated paralyzed and on blood pressure pressers. Vent setting FiO2 60%. He's peep is 18. He is now afebrile, Faith is 36 controlled, heart rate remains in the 80s, blood pressure with Levophed last is 108/59. White count this morning is 14.5 with him over 2.3 absolute Philzer 13. D dimer 1.87. Blood gases show a PCO2 of 50, PO 280, pH 7.41, Chemistry showed slight hypernatremia of sodium 148. Do you want is 38 cretin 0.65. Glucose is over the past 24 hours have been elevated in the 200s. Liver function tests and markers and information to Covid remain elevated Blood cultures show no growth, sputum culture showed haylee. [facility]. Patient remains on Covid protocol vitamin CD zinc anticoagulated with Lovenox, He remains Nimbex, fentanyl and diprivan to aid with vent support. cefepime for anabiotic coverage, He continues on dexamethasone 08/10/2021: patient remains in intubated sedated paralyzed and on blood pressure pressers. Vent setting FiO2 60%. He's peep is 16. The heart rate remains normal sinus rhythm, respiratory is 36 mechanically ventilated, blood pressure is low and he remains on norepinephrine. WBC count was 10.9 today with hemoglobin 11.5. Blood gases show pH of 7.4 to the PCO2 49 and PO2 of 68. Chemistry show persistent hypernatremia with sodium 140 potassium 4.5 BUN 30 creatinine 0.73. His glucoses remain in the 200s. CRP today 7.6, AST is 101 ALT is 123. Patient remains on cefepime for antibiotic coverage. Continues on his medications atorvastatin carvedilol dexamethasone Lovenox, and the other meds as reviewed per his med list. Objective - Vital Signs Vital signs: Vital Signs Temp 99.3 F 08/10/21 04:00 Pulse 81 08/10/21 07:15 Resp 36 H 08/10/21 07:15 BP 102/66 08/09/21 21:45 Pulse Ox 92 L 08/10/21 07:15 Intake & Output 08/09/21 08/10/21 08/10/21 18:59 06:59 18:59 Intake Total 8232.638 0241.888 123 Output Total 1175 850 30 Balance 377.107 862.888 93 Weight 113.9 kg Intake: IV 56 356 23 Cefepime 2 gm In Sodium 100 Chloride 0.9% 100 ml @ 25 mls/hr IVPB Q8HR [facility] Rx# :[id number] Sodium Chloride 0.9% 1, 20 220 20 000 ml @ 20 mls/hr IV . Q24H [facility] Rx#:[id number] pressure bag 36 36 3 Intake, IV Titration 822.107 896.888 100 Amount Cisatracurium 200 mg In 174.096 177.008 Sodium Chloride 0.9% 180 ml @ 1 MCG/KG/MIN 6.24 mls/hr IV .Q24H [facility] Rx#: [id number] Norepinephrine 8 mg In 258.000 258 Sodium Chloride 0.9% 250 ml @ 0.05 MCG/KG/MIN 10. 739 mls/hr IV .Q24H [facility] Rx#:[id number] fentaNYL (PF). 1,000 mcg 100 161.88 100 In Sodium Chloride 0.9% 80 ml @ 0.5 MCG/KG/HR 5.2 mls/hr IV .[id number] [facility] Rx#:[id number] propofoL 1,000 mg In 290.011 300 Empty Bag 1 bag @ Titrate IV .Q0M [facility] Rx#: [id number] Tube Feeding 444 370 Other 230 90 Output: Urine 1175 850 30 Other: Voiding Method Indwelling Catheter Indwelling Catheter ABP, PAP, CO, CI - Last Documented Arterial Blood Pressure 95/57 - Exam GENERAL EXAM: intubated,sedated, supine NECK: No masses, no JVD. CHEST: No chest wall deformity. LUNGS: Equal air entry with bibasilar crackles. CVS: S1 and S2 normal with no audible murmur, regular rhythm. ABDOMEN:exam deferred tdue to position SKIN: No rashes Groin: Pickett to gravity in place CENTRAL NERVOUS SYSTEM: No focal deficits, tone is normal in all 4 extremities. EXTREMITIES: There is no peripheral edema. No clubbing, no cyanosis. Peripheral pulses are intact. - Labs CBC & Chem 7: 08/10/21 04:35 08/10/21 04:35 Labs: Abnormal Lab Results - Last 24 Hours (Table) 08/09/21 08/09/21 08/09/21 Range/Units 14:16 18:02 23:21 WBC (3.8-10.6) k/uL RBC (4.30-5.90) m/uL Hgb (13.0-17.5) gm/dL Hct (39.0-53.0) % MCV (80.0-100.0) fL Neutrophils # (1.3-7.7) k/uL D-Dimer (<0.60) mg/L FEU ABG pCO2 (35-45) mmHg ABG pO2 (83-108) mmHg ABG HCO3 (21-25) mmol/L ABG Total CO2 (19-24) mmol/L ABG O2 Saturation (94-97) % Sodium (137-145) mmol/L Chloride (98-107) mmol/L BUN (9-20) mg/dL Glucose (74-99) mg/dL POC Glucose (mg/dL) 260 H 248 H 204 H (75-99) mg/dL Calcium (8.4-10.2) mg/dL AST (17-59) U/L ALT (4-49) U/L Lactate Dehydrogenase (313-618) U/L C-Reactive Protein (<1.0) mg/dL Total Protein (6.3-8.2) g/dL Albumin (3.5-5.0) g/dL 08/10/21 08/10/21 08/10/21 Range/Units 04:35 04:35 04:35 WBC 10.9 H (3.8-10.6) k/uL RBC 3.53 L (4.30-5.90) m/uL Hgb 11.5 L (13.0-17.5) gm/dL Hct 36.7 L (39.0-53.0) % MCV 104.0 H (80.0-100.0) fL Neutrophils # 9.4 H (1.3-7.7) k/uL D-Dimer 1.21 H (<0.60) mg/L FEU ABG pCO2 (35-45) mmHg ABG pO2 (83-108) mmHg ABG HCO3 (21-25) mmol/L ABG Total CO2 (19-24) mmol/L ABG O2 Saturation (94-97) % Sodium 148 H (137-145) mmol/L Chloride 114 H (98-107) mmol/L BUN 38 H (9-20) mg/dL Glucose 235 H (74-99) mg/dL POC Glucose (mg/dL) (75-99) mg/dL Calcium 8.2 L (8.4-10.2) mg/dL AST 101 H (17-59) U/L ALT 123 H (4-49) U/L Lactate Dehydrogenase 1012 H (313-618) U/L C-Reactive Protein 7.6 H (<1.0) mg/dL Total Protein 5.1 L (6.3-8.2) g/dL Albumin 2.3 L (3.5-5.0) g/dL 08/10/21 08/10/21 Range/Units 05:53 06:32 WBC (3.8-10.6) k/uL RBC (4.30-5.90) m/uL Hgb (13.0-17.5) gm/dL Hct (39.0-53.0) % MCV (80.0-100.0) fL Neutrophils # (1.3-7.7) k/uL D-Dimer (<0.60) mg/L FEU ABG pCO2 49 H (35-45) mmHg ABG pO2 68 L (83-108) mmHg ABG HCO3 31 H (21-25) mmol/L ABG Total CO2 33 H (19-24) mmol/L ABG O2 Saturation 93.6 L (94-97) % Sodium (137-145) mmol/L Chloride (98-107) mmol/L BUN (9-20) mg/dL Glucose (74-99) mg/dL POC Glucose (mg/dL) 227 H (75-99) mg/dL Calcium (8.4-10.2) mg/dL AST (17-59) U/L ALT (4-49) U/L Lactate Dehydrogenase (313-618) U/L C-Reactive Protein (<1.0) mg/dL Total Protein (6.3-8.2) g/dL Albumin (3.5-5.0) g/dL Microbiology - Last 24 Hours (Table) 08/03/21 16:43 Blood Culture - Final Blood No Growth after 144 hours 08/08/21 15:14 Blood Culture - Preliminary Blood No Growth after 24 hours 08/08/21 11:00 Blood Culture - Preliminary Blood No Growth after 24 hours 08/03/21 09:40 Blood Culture - Final Blood No Growth after 144 hours 08/07/21 14:45 Gram Stain - Final Sputum Sputum Culture - Final Haylee albicans Assessment and Plan (1) ARDS (adult respiratory distress syndrome) Current Visit: Yes Status: Acute Code(s): J80 - ACUTE RESPIRATORY DISTRESS SYNDROME SNOMED Code(s): 89859221 (2) Pneumonia Current Visit: Yes Status: Acute Code(s): J18.9 - PNEUMONIA, UNSPECIFIED ORGANISM SNOMED Code(s): 070425268 (3) COVID-19 Current Visit: Yes Status: Acute Code(s): U07.1 - COVID-19 SNOMED Code(s): 020662798 (4) Essential (primary) hypertension Current Visit: Yes Status: Acute Code(s): I10 - ESSENTIAL (PRIMARY) HYPERTENSION SNOMED Code(s): 65417400 (5) 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 Current Visit: Yes Status: Acute Code(s): Z79.891 - FDC (CURRENT) USE OF OPIATE ANALGESIC SNOMED Code(s): 581711311 (6) CAD (coronary artery disease) Current Visit: Yes Status: Acute Code(s): I25.10 - ATHSCL HEART DISEASE OF [place] CORONARY ARTERY W/O ANG PCTRS SNOMED Code(s): 88552849 (7) Chronic systolic (congestive) heart failure Current Visit: Yes Status: Acute Code(s): I50.22 - CHRONIC SYSTOLIC (CONGESTIVE) HEART FAILURE SNOMED Code(s): 355842353 (8) Daily consumption of alcohol Current Visit: No Status: Acute Code(s): Z78.9 - OTHER SPECIFIED HEALTH STATUS SNOMED Code(s): 220311889 (9) Former smoker Current Visit: No Status: Acute Code(s): Z87.891 - PERSONAL HISTORY OF NICOTINE DEPENDENCE SNOMED Code(s): 0152795 (10) Shortness of breath at rest Current Visit: No Status: Acute Code(s): R06.02 - SHORTNESS OF BREATH SNOMED Code(s): 263220269 (11) Pneumonia due to COVID-19 virus Current Visit: Yes Status: Acute Code(s): U07.1 - COVID-19; J12.82 - PNEUMONIA DUE TO CORONAVIRUS DISEASE 2019 SNOMED Code(s): 972191016449556733 Plan: continue COVID protocol. critical care orders per pulmonology: continue Lovenoix, decadron, Cefepime, Tube feeds at goal Repeat labs per protocol Nursing continues to titrate down his sedation He'll be reevaluated in the next 24 hours.
[2021-08-10 11:39] LABS: Glucose,Whole Blood 151 mg/dL (75-99)
--- NOTE | 2021-08-10 12:37 | P.PN ---
Subjective Progress Note Date: 08/10/21 Principal diagnosis: Acute hypoxic respiratory failure secondary to COVID-19 pneumonia On 08/09/2021 patient is seen in follow-up in the intensive care unit, he remains intubated, sedated and paralyzed on assist-control mode of ventilation, with a rate of 36, tidal labs 450, FiO2 of 60% and PEEP of 18, this morning's blood gas was reviewed showing pO2 of 80, pCO2 of 50, and pH of 7.41, and this was done on FiO2 of 60%. Today's chest x-ray has been reviewed showing bilateral airspace disease, interstitial prominence, no evidence of pneumothorax subpleural effusion, endotracheal tube, NG tube, left subclavian central venous catheter are in appropriate positions. Patient is currently on Nimbex at 2 mics per kilo per minute, he is on Diprivan at 40 mics per kilo per minute, 0.9 at a rate of 75 ML per hour, fentanyl at 1.5 mics per kilo per minute. He is still requiring vasopressor support, and he is on norepinephrine at 0.12 mics per kilo per minute. Vasopressor requirements have remained stable over the last 24 hours, urine output is adequate, the order of 75-100 ML per hour. Patient is being treated for COVID-19 pneumonia with severe hypoxic respiratory failure. He continues on Decadron, Lasix has been discontinued, Baricitinib was placed on hold, she continues on cefepime for empiric antibiotic coverage. He is on prophylactic dose of Lovenox 40 mg daily Blood and sputum cultures have been reviewed, sputum culture only showed Haylee albicans. His labs have been reviewed, his white blood cell count is improving and is down to 14.5 on today's labs, hemoglobin is 12.3, pro-calcitonin level is 0.32 on today's labs, improved over last couple of days. Serum sodium is 148, potassium is 4.5, chloride is 112, CO2 is 32, BUN is 38, creatinine 0.65, his AST is 121 and ALT is 112, slightly improved, alk phos is remains within normal limits at 98, his i nflammatory markers are improving and LDH is down to 1032, and CRP is 18.4 on today's labs. Patient's serum sodium has increased, patient is receiving free water flushes with 200 mL every 6 hours, and he is tolerating his tube feedings of vital high-protein at a rate of 37 mL per hour. His urine output is adequate the order of 75-100 ML per hour, renal profile remains relatively stable, with BUN of 38, and creatinine is within normal limits at 0.65. Reevaluated today on 08/10/2021 patient remains in the ICU, intubated and mechanically ventilated. Patient is presently on assist control rate of 36 tidal volume 450 FiO2 60% PEEP was 18 and I cut it down to 16. Continues to have relatively elevated plateau pressure of 31. ABG showed a pO2 of 68 pCO2 49 pH of 7.42. Patient remains on multiple drips including propofol 40 norepinephrine 0.1 Nimbex at 1.5 and fentanyl at 1 mcg/kg per hour. Patient is on vital 1.2. W scan is 10.9 hemoglobin 11.5 electrolytes are normal BUN is normal creatinine is normal considering the sodium is high at 148 I recommended increasing free water via orogastric tube to 100 mL every 4 hours. Chest x-ray is showing slight improvement, nonetheless continues to show bilateral infiltrates consistent with severe case of COVID-19 pneumonia. Patient remains on the COVID-19 cocktail. Remains on cefepime empirically. Remains on Decadron 6 mg IV push daily, Lovenox 40 mg subcu daily Protonix 40 mg IV push daily and multivitamins. Objective - Vital Signs Vital signs: Vital Signs Temp 99.3 F 08/10/21 04:00 Pulse 81 08/10/21 07:15 Resp 36 H 08/10/21 07:15 BP 102/66 08/09/21 21:45 Pulse Ox 92 L 08/10/21 07:15 Intake & Output 08/09/21 08/10/21 08/10/21 18:59 06:59 18:59 Intake Total 3377.739 6816.888 123 Output Total 1175 850 30 Balance 377.107 862.888 93 Weight 113.9 kg Intake: IV 56 356 23 Cefepime 2 gm In Sodium 100 Chloride 0.9% 100 ml @ 25 mls/hr IVPB Q8HR [facility] Rx# :[id number] Sodium Chloride 0.9% 1, 20 220 20 000 ml @ 20 mls/hr IV . Q24H [facility] Rx#:[id number] pressure bag 36 36 3 Intake, IV Titration 822.107 896.888 100 Amount Cisatracurium 200 mg In 174.096 177.008 Sodium Chloride 0.9% 180 ml @ 1 MCG/KG/MIN 6.24 mls/hr IV .Q24H [facility] Rx#: [id number] Norepinephrine 8 mg In 258.000 258 Sodium Chloride 0.9% 250 ml @ 0.05 MCG/KG/MIN 10. 739 mls/hr IV .Q24H [facility] Rx#:[id number] fentaNYL (PF). 1,000 mcg 100 161.88 100 In Sodium Chloride 0.9% 80 ml @ 0.5 MCG/KG/HR 5.2 mls/hr IV .[id number] [facility] Rx#:[id number] propofoL 1,000 mg In 290.011 300 Empty Bag 1 bag @ Titrate IV .Q0M [facility] Rx#: [id number] Tube Feeding 444 370 Other 230 90 Output: Urine 1175 850 30 Other: Voiding Method Indwelling Catheter Indwelling Catheter ABP, PAP, CO, CI - Last Documented Arterial Blood Pressure 95/57 - Exam Physical Exam revealed 65-year-old white male intubated and ventilated and sedated and paralyzed. Head: Atraumatic, normocephalic. Endotracheal tube and orogastric tube are intact. HEENT:[Neck is supple.] [No neck masses.] [No thyromegaly.] [No JVD.] Chest: [Symmetrical chest expansion crackles at the bases bilaterally. Cardiac Exam: [Normal S1 and S2, no S3 gallop, no murmur.] Abdomen: [Soft, nontender, no megaly, no rebound, no guarding, normal bowel sounds.] Extremities: [No clubbing, 1+ bipedal edema, no cyanosis.] Neurological Exam: Could not assess, patient is fully sedated and paralyzed. Psychiatric: Could not be assessed patient is fully sedated and paralyzed. - Labs CBC & Chem 7: 08/10/21 04:35 08/10/21 04:35 Labs: Abnormal Lab Results - Last 24 Hours (Table) 08/09/21 08/09/21 08/09/21 Range/Units 14:16 18:02 23:21 WBC (3.8-10.6) k/uL RBC (4.30-5.90) m/uL Hgb (13.0-17.5) gm/dL Hct (39.0-53.0) % MCV (80.0-100.0) fL Neutrophils # (1.3-7.7) k/uL D-Dimer (<0.60) mg/L FEU ABG pCO2 (35-45) mmHg ABG pO2 (83-108) mmHg ABG HCO3 (21-25) mmol/L ABG Total CO2 (19-24) mmol/L ABG O2 Saturation (94-97) % Sodium (137-145) mmol/L Chloride (98-107) mmol/L BUN (9-20) mg/dL Glucose (74-99) mg/dL POC Glucose (mg/dL) 260 H 248 H 204 H (75-99) mg/dL Calcium (8.4-10.2) mg/dL AST (17-59) U/L ALT (4-49) U/L Lactate Dehydrogenase (313-618) U/L C-Reactive Protein (<1.0) mg/dL Total Protein (6.3-8.2) g/dL Albumin (3.5-5.0) g/dL 08/10/21 08/10/21 08/10/21 Range/Units 04:35 04:35 04:35 WBC 10.9 H (3.8-10.6) k/uL RBC 3.53 L (4.30-5.90) m/uL Hgb 11.5 L (13.0-17.5) gm/dL Hct 36.7 L (39.0-53.0) % MCV 104.0 H (80.0-100.0) fL Neutrophils # 9.4 H (1.3-7.7) k/uL D-Dimer 1.21 H (<0.60) mg/L FEU ABG pCO2 (35-45) mmHg ABG pO2 (83-108) mmHg ABG HCO3 (21-25) mmol/L ABG Total CO2 (19-24) mmol/L ABG O2 Saturation (94-97) % Sodium 148 H (137-145) mmol/L Chloride 114 H (98-107) mmol/L BUN 38 H (9-20) mg/dL Glucose 235 H (74-99) mg/dL POC Glucose (mg/dL) (75-99) mg/dL Calcium 8.2 L (8.4-10.2) mg/dL AST 101 H (17-59) U/L ALT 123 H (4-49) U/L Lactate Dehydrogenase 1012 H (313-618) U/L C-Reactive Protein 7.6 H (<1.0) mg/dL Total Protein 5.1 L (6.3-8.2) g/dL Albumin 2.3 L (3.5-5.0) g/dL 08/10/21 08/10/21 08/10/21 Range/Units 05:53 06:32 11:37 WBC (3.8-10.6) k/uL RBC (4.30-5.90) m/uL Hgb (13.0-17.5) gm/dL Hct (39.0-53.0) % MCV (80.0-100.0) fL Neutrophils # (1.3-7.7) k/uL D-Dimer (<0.60) mg/L FEU ABG pCO2 49 H (35-45) mmHg ABG pO2 68 L (83-108) mmHg ABG HCO3 31 H (21-25) mmol/L ABG Total CO2 33 H (19-24) mmol/L ABG O2 Saturation 93.6 L (94-97) % Sodium (137-145) mmol/L Chloride (98-107) mmol/L BUN (9-20) mg/dL Glucose (74-99) mg/dL POC Glucose (mg/dL) 227 H 151 H (75-99) mg/dL Calcium (8.4-10.2) mg/dL AST (17-59) U/L ALT (4-49) U/L Lactate Dehydrogenase (313-618) U/L C-Reactive Protein (<1.0) mg/dL Total Protein (6.3-8.2) g/dL Albumin (3.5-5.0) g/dL Microbiology - Last 24 Hours (Table) 08/03/21 16:43 Blood Culture - Final Blood No Growth after 144 hours 08/08/21 15:14 Blood Culture - Preliminary Blood No Growth after 24 hours 08/08/21 11:00 Blood Culture - Preliminary Blood No Growth after 24 hours 08/03/21 09:40 Blood Culture - Final Blood No Growth after 144 hours 08/07/21 14:45 Gram Stain - Final Sputum Sputum Culture - Final Haylee albicans Assessment and Plan Assessment: Impression: Acute hypoxic respiratory failure secondary to COVID-19 pneumonia, patient is not vaccinated. His symptoms started on 07/24/21, patient received monoclonal an tibody infusion. Received Baricitinib on 07/28. Transferred to the ICU on 08/02 and intubated presently remains intubated sedated and mechanically ventilated as well as paralyzed. Suspect superimposed bacterial infection hence the patient is still on cefepime and Baricitinib has been discontinued. Cardiomyopathy and LV dysfunction, ejection fraction of 40-45%. Patient has chronic systolic congestive heart failure. Benign essential hypertension History of alcohol abuse, in remission History of PTSD History of underlying coronary artery disease Hypernatremia secondary to diuretics patient is receiving free water flushes. Suspect ARDS secondary to COVID-19 pneumonia patient is still requiring high FiO2 and high PEEP Recommendation: Continue present ventilatory settings again he is on assist control rate of 36 total volume 450 FiO2 60% and PEEP is down to 16 today. Continue COVID-19 cocktail. Continue Lovenox and Decadron. Continue GI and DVT prophylaxis. Continue nutritional support. Increase free water flushes Continue empiric antibiotics. Pro-calcitonin is trending down. Not ready for any form of weaning at this point considering the patient is developing probably some ARDS. As a complication from COVID-19 pneumonia. Continue to monitor inflammatory markers. Monitor urine output and daily labs including renal profile and electrolytes. Patient is obviously critically ill, Critical care time is over 30 minutes. Time with Patient: Greater than 30
[2021-08-10] MEDS: SODIUM CHLORIDE 0.9% 1,000 ML IV SCH (13:28)
[2021-08-10 17:39] LABS: Glucose,Whole Blood 243 mg/dL (75-99)
[2021-08-10] MEDS: ATORVASTATIN 40 MG TAB PO SCH (17:45)
[2021-08-10 23:26] LABS: Glucose,Whole Blood 207 mg/dL (75-99)
[2021-08-11 03:48] LABS: Basophils % (A) 0 %; Eosinophils # (A) 0.1 k/uL (0-0.7); Eosinophils % (A) 1 %; HCT 34.9 % (39.0-53.0); Hypochromasia Slight; Lymphocytes # (A) 1.1 k/uL (1.0-4.8); Lymphocytes % (A) 8 %; MCHC 31.5 g/dL (31.0-37.0); MCV 104.5 fL (80.0-100.0); Macrocytosis Slight; Mean Platelet Volume 8.3; Monocytes # (A) 0.4 k/uL (0-1.0); Monocytes % (A) 3 %; Neutrophils # (A) 12.3 k/uL (1.3-7.7); Neutrophils % (A) 88 %; Platelet Count 323 k/uL (150-450); RBC 3.34 m/uL (4.30-5.90); RDW 13.6 % (11.5-15.5)
[2021-08-11 04:00] LABS: ALT 124 U/L (4-49); AST 89 U/L (17-59); African American GFR (CKD) >90 (>60 ml/min/1.73 sqM); Albumin 2.4 g/dL (3.5-5.0); Alkaline Phosphatase 85 U/L (38-126); Anion Gap 2 mmol/L; Blood Urea Nitrogen 37 mg/dL (9-20); Calcium 8.2 mg/dL (8.4-10.2); Carbon Dioxide 30 mmol/L (22-30); Chloride 117 mmol/L (98-107); Glucose 185 mg/dL (74-99); LDH 1059 U/L (313-618); Non-African American GFR(CKD) >90 (>60 ml/min/1.73 sqM); Potassium 4.6 mmol/L (3.5-5.1); Sodium 149 mmol/L (137-145); Total Bilirubin 0.5 mg/dL (0.2-1.3); Total Protein 5.1 g/dL (6.3-8.2)
[2021-08-11 05:49] LABS: C Reactive Protein 5.4 mg/dL (<1.0)
[2021-08-11 05:56] LABS: ABG Base Excess 5.6 mmol/L; ABG HCO3 30 mmol/L (21-25); ABG Oxygen Saturation 92.7 % (94-97); ABG PCO2 47 mmHg (35-45); ABG PH 7.42 (7.35-7.45); ABG PO2 65 mmHg (83-108); ABG TCO2 32 mmol/L (19-24)
[2021-08-11 06:30] LABS: Allen Test Performed? No
[2021-08-11 07:14] LABS: Glucose,Whole Blood 173 mg/dL (75-99)
[2021-08-11] MEDS: INSULIN ASPART (NovoLOG) 100 UNIT/ML VIAL SQ SCH ×4 (07:15→23:26)
[2021-08-11] MEDS: ARTIFICIAL TEARS-HYPROMELLOSE DROPS 15 ML BTL BOTH EYES SCH ×6 (07:15→23:33)
[2021-08-11] MEDS: fentaNYL (PF). 1,000 MCG in SODIUM CHLORIDE 0.9% 80 ML IV SCH ×2 (07:49→20:03)
[2021-08-11] MEDS: carvediloL 3.125 MG TAB PO SCH (07:58)
[2021-08-11] MEDS: ZINC SULFATE 220 MG CAP PO SCH (08:04)
[2021-08-11] MEDS: PANTOPRAZOLE 40 MG/10 ML VIAL IVP SCH (08:04)
[2021-08-11] MEDS: ENOXAPARIN 40 MG/0.4 ML SYRINGE SQ SCH (08:04)
[2021-08-11] MEDS: POTASSIUM CHLORIDE ER 20 MEQ TAB.ER PO SCH (08:04)
[2021-08-11] MEDS: ASCORBIC ACID 500 MG TAB PO SCH (08:04)
[2021-08-11] MEDS: CEFEPIME 2 GM in SODIUM CHLORIDE 0.9% 100 ML IVPB SCH ×3 (08:04→23:33)
[2021-08-11] MEDS: CHLORHEXIDINE GLUCONATE 15 ML CUP MUCOUS MEM SCH ×2 (08:04→19:50)
[2021-08-11] MEDS: ASPIRIN 81 MG PO SCH ×2 (08:04→19:50)
[2021-08-11] MEDS: DEXAMETHASONE SOD PHOSPHATE 10 MG/ML 1 ML VIAL IVP SCH (08:04)
[2021-08-11] MEDS: INSULIN DETEMIR (LEVEMIR) 100 UNIT/ML SYR SQ SCH (08:13)
[2021-08-11] MEDS: ALBUTEROL HFA INHALER INHALATION PRN (08:13)
[2021-08-11] MEDS: LOSARTAN 25 MG TAB PO SCH (08:14)
[2021-08-11] MEDS: CHOLECALCIFEROL 25 MCG (1000 IU) TABLET PO SCH (08:14)
--- NOTE | 2021-08-11 09:02 | XR ---
EXAMINATION TYPE: XR chest 1V portable DATE OF EXAM: 08/11/2021 COMPARISON: 08/11/2021 HISTORY: 65 years Male. STUDY INDICATION GIVEN: OGT placement . TECHNIQUE: AP upright chest radiograph IMPRESSION: Enteric tube courses into the stomach. Tip of left upper central venous catheter in the inferior SVC. The entire course of the CVC is not imaged. Stable bilateral interstitial a patchy opacities. No large effusion seen. No pneumothorax seen in the included lungs, the lung apices are not included on this study. The cardiomediastinal silhouette is normal in size. The osseous structures are stable. Right upper abdomen surgical clips noted.
--- NOTE | 2021-08-11 09:13 | XR ---
EXAMINATION TYPE: XR chest 1V portable DATE OF EXAM: 08/11/2021 COMPARISON: 08/10/2021 HISTORY: 65 years Male. STUDY INDICATION GIVEN: covid . TECHNIQUE: AP semiupright chest radiograph IMPRESSION: Bilateral left greater than right interstitial and patchy left lower lobe opacities without significa nt change. COPD/emphysema changes noted. Cardiomediastinal silhouette within normal limit. No pneumothorax or large effusion. Stable osseous structures. Tip of endotracheal tube 4.8 cm above giovani. Left central venous catheter tip at the inferior SVC.
[2021-08-11] MEDS: CISATRACURIUM 200 MG in SODIUM CHLORIDE 0.9% 180 ML IV SCH (10:25)
--- NOTE | 2021-08-11 11:55 | P.PN ---
Subjective This is a 65-year-old male well-known to me. He had been and getting sick last Friday. He was tested for COVID-19 and was positive. Unfortunately this patient is not vaccinated. He did receive monoclonal antibody infusion. On Friday he was initiated on Decadron and colchicine due to a obesity, history of smoking and chronic pain. He presented to the emergency room and [facility] and was found to 19 pneumonia on chest x-ray. KUB due to increased shortness of breath. He was found to have a pulse oximetry of 84 in the emergency room. He is currently on a 50% nonrebreather. His pulse oximeter is improved, but he does continue to short of breath this level. Initial laboratory studies were essentially normal. Diabetes 5 Hemoglobin 53. There Is No Significant Shift. 07/29/2021: Patient is slightly improved this morning. He is on nasal cannula high flow to 15 L/m. He is not really needing the nonrebreather. Pulmonology consult was reviewed. He is been started on Olumiant. Vital signs remained stable. His most recent pulse oximetry is 91%. Heart rate regular respiratory rate 18 and 20. She remains afebrile. Laboratory studies show a leukocytosis at 10.7 today with a neutrophil left shift at 9.4. Chemistries are essentially normal. CRP was 4.3 lactate dehydrogenase is 1389. Troponin 3 was negative. Pro-calcitonin is normal 0.07. Patient remains on albuterol HFA every 6 hours as needed. Xanax as started for anxiety. He remains on atorvastatin carvedilol, losartan, cyclobenzaprine. He is anticoagulated with Lovenox. He is on dexamethasone, Olumiant. Overall he indicates he feels about the same. He feels short of breath than he activity. He is minimally short of breath at rest. He denies any nausea or vomiting. He denies having any significant appetite. 08/06/2021:The patient is now sedated with propofol and fentanyl. He is in the prone position. Hes intubated. He is paralyzed with Nimbex. Critical care is following him. Currently hes on an FiO2 of 70% in a peep of 18. CXR shows bilateral pulmonary infiltrates. Labs are pending for this morning. The patient remains on Decadron and Covid cocktail. TMAX 100.9 DEG F WBC 18.7 with 17.4 Neutrophils ABG PH 7.36, pCO2 50 pO2 84 08/07/2021: Patient is currently intubated, sedated and paralyzed .Vent settings FiO2 of 70% and PEEP of 18, Patient is febrile Tmax 100.3 Deg F ABG today shows pO2 of 60, pCO2 of 50, and pH of 7.40, His chest x-ray shows no change, persistent bilateral multifocal opacities greatest in the lower lungs consistent with COVID-19 infection, blood cultures have shown no growth thus far. Labs WBC 16.7, hemoglobin of 12.7, d-dimer is 1.97, sodium is 142, potassium is 4.1, chloride is 109, BUN is 35, creatinine 0.64, LDH is down to 1132, CRP is 24.9, Patient was prone positioning for last several days, however he developed deep tissue injury on his face, and last night was placed supine. patient remains on fentanyl, Nimbex, Diprivan and feedings are currently off. Patient continues on cefepime, Lovenox, Decadron and COVID-19 multivitamins. Lasix was added yesterday. 08/08/2021: Patient is currently intubated, sedated and paralyzed .Vent settings FiO2 of 70% and PEEP of 18, Patient is febrile Tmax 100.2 Deg F ABG today shows pO2 of 60, pCO2 of 50, and pH of 7.40, His chest x-ray shows no change, persistent bilateral multifocal opacities greatest in the lower lungs consistent with COVID-19 infection, blood cultures have shown no growth thus far. Labs WBC 18.1 hemoglobin of 12.6, d-dimer is 2.52, sodium is 147, potassium is 4.2, chloride is 109, BUN is 37, creatinine 0.67, LDH is 1254, CRP is 26.0, Patient supine positioning after developing a deep tissue injury on his face when prone, patient remains on fentanyl, Nimbex, Diprivan and feedings are currently off. Patient continues on cefepime, Lovenox, Decadron and COVID-19 multivitamins. Lasix was stopped. August 09, 2021: patient remains in abated sedated paralyzed and on blood pressure pressers. Vent setting FiO2 60%. He's peep is 18. He is now afebrile, Adventist is 36 controlled, heart rate remains in the 80s, blood pressure with Levophed last is 108/59. White count this morning is 14.5 with him over 2.3 absolute Philzer 13. D dimer 1.87. Blood gases show a PCO2 of 50, PO 280, pH 7.41, Chemistry showed slight hypernatremia of sodium 148. Do you want is 38 cretin 0.65. Glucose is over the past 24 hours have been elevated in the 200s. Liver function tests and markers and information to Covid remain elevated Blood cultures show no growth, sputum culture showed dima. Chest x-ray shows similar to [facility] exam consistent with Covid pneumonia. Patient remains on Covid protocol vitamin CD zinc anticoagulated with Lovenox, He remains Nimbex, fentanyl and diprivan to aid with vent support. cefepime for anabiotic coverage, He continues on dexamethasone 08/10/2021: patient remains in intubated sedated paralyzed and on blood pressure pressers. Vent setting FiO2 60%. He's peep is 16. The heart rate remains normal sinus rhythm, respiratory is 36 mechanically ventilated, blood pressure is low and he remains on norepinephrine. WBC count was 10.9 today with hemoglobin 11.5. Blood gases show pH of 7.4 to the PCO2 49 and PO2 of 68. Chemistry show persistent hypernatremia with sodium 140 potassium 4.5 BUN 30 creatinine 0.73. His glucoses remain in the 200s. CRP today 7.6, AST is 101 ALT is 123. Patient remains on cefepime for antibiotic coverage. Continues on his medications atorvastatin carvedilol dexamethasone Lovenox, and the other meds as reviewed per his med list. 08/11/2021: patient remains in intubated sedated paralyzed and on blood pressure pressers. Vent setting FiO2 60%. He's peep is 16. This is the same as one day ago. The heart rate remains normal sinus rhythm, respiratory is 36 mechanically ventilated, blood pressure is low and he remains on norepinephrine. He remains on cefepime, normal saline at KVO, propofol, norepinephrine, Cisatarurium. For IV infusions. I+O show 686.7 net in so far today. WBC count was 14 today with hemoglobin 11.0. Blood gases show pH of 7.42 to the PCO2 47 and PO2 of 65. Chemistry show persistent hypernatremia with sodium 149 potassium 4.6 BUN 37 creatinine 0.57. His glucoses remain in the 200s. CRP today 5.4, AST is 89 ALT is 124. Patient remains on cefepime for antibiotic coverage. Continues on his medications Dexamethasone Lovenox, and the other meds as reviewed per his med list. His came to visit him today and I spoke briefly with her about his care. Objective - Vital Signs Vital signs: Vital Signs Temp 98.7 F 08/11/21 08:00 Pulse 69 08/11/21 11:00 Resp 36 H 08/11/21 11:00 BP 137/77 08/11/21 08:00 Pulse Ox 90 L 08/11/21 11:00 Intake & Output 08/10/21 08/11/21 08/11/21 18:59 06:59 18:59 Intake Total 2370.241 7186.58 986.795 Output Total 430 860 300 Balance 1232.064 931.58 686.795 Weight 113.9 kg Intake: IV 376 341 152 Cefepime 2 gm In Sodium 100 125 100 Chloride 0.9% 100 ml @ 25 mls/hr IVPB Q8HR [facility] Rx# :[id number] Sodium Chloride 0.9% 1, 240 180 40 000 ml @ 20 mls/hr IV . Q24H [facility] Rx#:[id number] pressure bag 36 36 12 Intake, IV Titration 726.064 386.58 486.795 Amount Cisatracurium 200 mg In 168.064 200 Sodium Chloride 0.9% 180 ml @ 1 MCG/KG/MIN 6.24 mls/hr IV .Q24H [facility] Rx#: [id number] Norepinephrine 8 mg In 258 220.803 Sodium Chloride 0.9% 250 ml @ 0.05 MCG/KG/MIN 10. 739 mls/hr IV .Q24H [facility] Rx#:[id number] fentaNYL (PF). 1,000 mcg 200 186.58 In Sodium Chloride 0.9% 80 ml @ 0.5 MCG/KG/HR 5.2 mls/hr IV .[id number] [facility] Rx#:[id number] propofoL 1,000 mg In 100 200 65.992 Empty Bag 1 bag @ Titrate IV .Q0M [facility] Rx#: [id number] Tube Feeding 370 444 148 Other 190 620 200 Output: Urine 430 860 300 Other: Voiding Method Indwelling Catheter Indwelling Catheter ABP, PAP, CO, CI - Last Documented Arterial Blood Pressure 108/58 - Exam GENERAL EXAM: intubated,sedated, supine NECK: No masses, no JVD. CHEST: No chest wall deformity. LUNGS: Equal air entry with bibasilar crackles. CVS: S1 and S2 normal with no audible murmur, regular rhythm. ABDOMEN:exam deferred tdue to position SKIN: No rashes Groin: Pickett to gravity in place CENTRAL NERVOUS SYSTEM: No focal deficits, tone is normal in all 4 extremities. EXTREMITIES: There is no peripheral edema. No clubbing, no cyanosis. Peripheral pulses are intact. - Labs CBC & Chem 7: 08/11/21 03:30 08/11/21 03:30 Labs: Abnormal Lab Results - Last 24 Hours (Table) 08/10/21 08/10/21 08/11/21 Range/Units 17:38 23:24 01:10 WBC (3.8-10.6) k/uL RBC (4.30-5.90) m/uL Hgb (13.0-17.5) gm/dL Hct (39.0-53.0) % MCV (80.0-100.0) fL Neutrophils # (1.3-7.7) k/uL D-Dimer (<0.60) mg/L FEU ABG pCO2 47 H (35-45) mmHg ABG pO2 65 L (83-108) mmHg ABG HCO3 30 H (21-25) mmol/L ABG Total CO2 32 H (19-24) mmol/L ABG O2 Saturation 92.7 L (94-97) % Sodium (137-145) mmol/L Chloride (98-107) mmol/L BUN (9-20) mg/dL Creatinine (0.66-1.25) mg/dL Glucose (74-99) mg/dL POC Glucose (mg/dL) 243 H 207 H (75-99) mg/dL Calcium (8.4-10.2) mg/dL AST (17-59) U/L ALT (4-49) U/L Lactate Dehydrogenase (313-618) U/L C-Reactive Protein (<1.0) mg/dL Total Protein (6.3-8.2) g/dL Albumin (3.5-5.0) g/dL 08/11/21 08/11/21 08/11/21 Range/Units 03:30 03:30 03:30 WBC 14.0 H (3.8-10.6) k/uL RBC 3.34 L (4.30-5.90) m/uL Hgb 11.0 L (13.0-17.5) gm/dL Hct 34.9 L (39.0-53.0) % MCV 104.5 H (80.0-100.0) fL Neutrophils # 12.3 H (1.3-7.7) k/uL D-Dimer 1.76 H (<0.60) mg/L FEU ABG pCO2 (35-45) mmHg ABG pO2 (83-108) mmHg ABG HCO3 (21-25) mmol/L ABG Total CO2 (19-24) mmol/L ABG O2 Saturation (94-97) % Sodium 149 H (137-145) mmol/L Chloride 117 H (98-107) mmol/L BUN 37 H (9-20) mg/dL Creatinine 0.57 L (0.66-1.25) mg/dL Glucose 185 H (74-99) mg/dL POC Glucose (mg/dL) (75-99) mg/dL Calcium 8.2 L (8.4-10.2) mg/dL AST 89 H (17-59) U/L ALT 124 H (4-49) U/L Lactate Dehydrogenase 1059 H (313-618) U/L C-Reactive Protein 5.4 H (<1.0) mg/dL Total Protein 5.1 L (6.3-8.2) g/dL Albumin 2.4 L (3.5-5.0) g/dL 08/11/21 Range/Units 07:12 WBC (3.8-10.6) k/uL RBC (4.30-5.90) m/uL Hgb (13.0-17.5) gm/dL Hct (39.0-53.0) % MCV (80.0-100.0) fL Neutrophils # (1.3-7.7) k/uL D-Dimer (<0.60) mg/L FEU ABG pCO2 (35-45) mmHg ABG pO2 (83-108) mmHg ABG HCO3 (21-25) mmol/L ABG Total CO2 (19-24) mmol/L ABG O2 Saturation (94-97) % Sodium (137-145) mmol/L Chloride (98-107) mmol/L BUN (9-20) mg/dL Creatinine (0.66-1.25) mg/dL Glucose (74-99) mg/dL POC Glucose (mg/dL) 173 H (75-99) mg/dL Calcium (8.4-10.2) mg/dL AST (17-59) U/L ALT (4-49) U/L Lactate Dehydrogenase (313-618) U/L C-Reactive Protein (<1.0) mg/dL Total Protein (6.3-8.2) g/dL Albumin (3.5-5.0) g/dL Microbiology - Last 24 Hours (Table) 08/08/21 15:14 Blood Culture - Preliminary Blood No Growth after 48 hours 08/08/21 11:00 Blood Culture - Preliminary Blood No Growth after 48 hours Assessment and Plan (1) ARDS (adult respiratory distress syndrome) Current Visit: Yes Status: Acute Code(s): J80 - ACUTE RESPIRATORY DISTRESS SYNDROME SNOMED Code(s): 05490887 (2) Pneumonia Current Visit: Yes Status: Acute Code(s): J18.9 - PNEUMONIA, UNSPECIFIED ORGANISM SNOMED Code(s): 697169150 (3) COVID-19 Current Visit: Yes Status: Acute Code(s): U07.1 - COVID-19 SNOMED Code(s): 950263587 (4) Essential (primary) hypertension Current Visit: Yes Status: Acute Code(s): I10 - ESSENTIAL (PRIMARY) HYPERTENSION SNOMED Code(s): 19853380 (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 Current Visit: Yes Status: Acute Code(s): Z79.891 - HALFWAY (CURRENT) USE OF OPIATE ANALGESIC SNOMED Code(s): 081874097 (6) CAD (coronary artery disease) Current Visit: Yes Status: Acute Code(s): I25.10 - ATHSCL HEART DISEASE OF [place] CORONARY ARTERY W/O ANG PCTRS SNOMED Code(s): 82537899 (7) Chronic systolic (congestive) heart failure Current Visit: Yes Status: Acute Code(s): I50.22 - CHRONIC SYSTOLIC (CONGESTIVE) HEART FAILURE SNOMED Code(s): 212091727 (8) Daily consumption of alcohol Current Visit: No Status: Acute Code(s): Z78.9 - OTHER SPECIFIED HEALTH STATUS SNOMED Code(s): 103361176 (9) Former smoker Current Visit: No Status: Acute Code(s): Z87.891 - PERSONAL HISTORY OF NICOTINE DEPENDENCE SNOMED Code(s): 7008653 (10) Shortness of breath at rest Current Visit: No Status: Acute Code(s): R06.02 - SHORTNESS OF BREATH SNOMED Code(s): 261718582 (11) Pneumonia due to COVID-19 virus Current Visit: Yes Status: Acute Code(s): U07.1 - COVID-19; J12.82 - PNEUMONIA DUE TO CORONAVIRUS DISEASE 2018 SNOMED Code(s): 792499616356316194 Plan: continue COVID protocol. critical care orders per pulmonology: continue Lovenoix, decadron, Cefepime, Tube feeds at goal Repeat labs per protocol Nursing continues to try to titrate down his sedation He'll be reevaluated in the next 24 hours.
--- NOTE | 2021-08-11 11:58 | P.PN ---
Subjective Progress Note Date: 08/11/21 Principal diagnosis: Acute hypoxic respiratory failure secondary to COVID-19 pneumonia On 08/09/2021 patient is seen in follow-up in the intensive care unit, he remains intubated, sedated and paralyzed on assist-control mode of ventilation, with a rate of 36, tidal labs 450, FiO2 of 60% and PEEP of 18, this morning's blood gas was reviewed showing pO2 of 80, pCO2 of 50, and pH of 7.41, and this was done on FiO2 of 60%. Today's chest x-ray has been reviewed showing bilateral airspace disease, interstitial prominence, no evidence of pneumothorax subpleural effusion, endotracheal tube, NG tube, left subclavian central venous catheter are in appropriate positions. Patient is currently on Nimbex at 2 mics per kilo per minute, he is on Diprivan at 40 mics per kilo per minute, 0.9 at a rate of 75 ML per hour, fentanyl at 1.5 mics per kilo per minute. He is still requiring vasopressor support, and he is on norepinephrine at 0.12 mics per kilo per minute. Vasopressor requirements have remained stable over the last 24 hours, urine output is adequate, the order of 75-100 ML per hour. Patient is being treated for COVID-19 pneumonia with severe hypoxic respiratory failure. He continues on Decadron, Lasix has been discontinued, Baricitinib was placed on hold, she continues on cefepime for empiric antibiotic coverage. He is on prophylactic dose of Lovenox 40 mg daily Blood and sputum cultures have been reviewed, sputum culture only showed Haylee albicans. His labs have been reviewed, his white blood cell count is improving and is down to 14.5 on today's labs, hemoglobin is 12.3, pro-calcitonin level is 0.32 on today's labs, improved over last couple of days. Serum sodium is 148, potassium is 4.5, chloride is 112, CO2 is 32, BUN is 38, creatinine 0.65, his AST is 121 and ALT is 112, slightly improved, alk phos is remains within normal limits at 98, his i nflammatory markers are improving and LDH is down to 1032, and CRP is 18.4 on today's labs. Patient's serum sodium has increased, patient is receiving free water flushes with 200 mL every 6 hours, and he is tolerating his tube feedings of vital high-protein at a rate of 37 mL per hour. His urine output is adequate the order of 75-100 ML per hour, renal profile remains relatively stable, with BUN of 38, and creatinine is within normal limits at 0.65. Reevaluated today on 08/10/2021 patient remains in the ICU, intubated and mechanically ventilated. Patient is presently on assist control rate of 36 tidal volume 450 FiO2 60% PEEP was 18 and I cut it down to 16. Continues to have relatively elevated plateau pressure of 31. ABG showed a pO2 of 68 pCO2 49 pH of 7.42. Patient remains on multiple drips including propofol 40 norepinephrine 0.1 Nimbex at 1.5 and fentanyl at 1 mcg/kg per hour. Patient is on vital 1.2. W scan is 10.9 hemoglobin 11.5 electrolytes are normal BUN is normal creatinine is normal considering the sodium is high at 148 I recommended increasing free water via orogastric tube to 100 mL every 4 hours. Chest x-ray is showing slight improvement, nonetheless continues to show bilateral infiltrates consistent with severe case of COVID-19 pneumonia. Patient remains on the COVID-19 cocktail. Remains on cefepime empirically. Remains on Decadron 6 mg IV push daily, Lovenox 40 mg subcu daily Protonix 40 mg IV push daily and multivitamins. Reevaluated today on 08/11/21, patient remains in the ICU, intubated and mechanically ventilated. Presently on assist control rate of 36 tidal volume 450 FiO2 60% PEEP is at 16, ABG showed a pO2 of 65 pCO2 47 pH of 7.42, hence no changes were made in the ventilator settings today. Patient remains on Nimbex to microgram per kilo per minute norepinephrine 0.07 mcg/kg/m fentanyl at 1.5 mcg/kg/h and propofol 40 mcg/kg/m. Remains on enteral feeding. Chest x-ray continues show bilateral infiltrates consistent with COVID-19 pneumonia and the patient seems to have some component of ARDS. Continues to have relatively high plateau pressures. At least he got is 14 hemoglobin is 11. Sodium is high at 149 however his free water flushes were increased to 200 mL every 4 hours. LDH today is 1059. C-reactive protein is 5.4. Minimal improvement noted but nonetheless LDH seems to be trending down a bit. Objective - Vital Signs Vital signs: Vital Signs Temp 98.7 F 08/11/21 08:00 Pulse 69 08/11/21 11:00 Resp 36 H 08/11/21 11:00 BP 137/77 08/11/21 08:00 Pulse Ox 90 L 08/11/21 11:00 Intake & Output 08/10/21 08/11/21 08/11/21 18:59 06:59 18:59 Intake Total 5162.283 9289.58 986.795 Output Total 430 860 300 Balance 1232.064 931.58 686.795 Weight 113.9 kg Intake: IV 376 341 152 Cefepime 2 gm In Sodium 100 125 100 Chloride 0.9% 100 ml @ 25 mls/hr IVPB Q8HR [facility] Rx# :[id number] Sodium Chloride 0.9% 1, 240 180 40 000 ml @ 20 mls/hr IV . Q24H [facility] Rx#:[id number] pressure bag 36 36 12 Intake, IV Titration 726.064 386.58 486.795 Amount Cisatracurium 200 mg In 168.064 200 Sodium Chloride 0.9% 180 ml @ 1 MCG/KG/MIN 6.24 mls/hr IV .Q24H [facility] Rx#: [id number] Norepinephrine 8 mg In 258 220.803 Sodium Chloride 0.9% 250 ml @ 0.05 MCG/KG/MIN 10. 739 mls/hr IV .Q24H [facility] Rx#:[id number] fentaNYL (PF). 1,000 mcg 200 186.58 In Sodium Chloride 0.9% 80 ml @ 0.5 MCG/KG/HR 5.2 mls/hr IV .[id number] [facility] Rx#:[id number] propofoL 1,000 mg In 100 200 65.992 Empty Bag 1 bag @ Titrate IV .Q0M [facility] Rx#: [id number] Tube Feeding 370 444 148 Other 190 620 200 Output: Urine 430 860 300 Other: Voiding Method Indwelling Catheter Indwelling Catheter ABP, PAP, CO, CI - Last Documented Arterial Blood Pressure 108/58 - Exam Physical Exam revealed 65-year-old white male intubated and ventilated and sedated and paralyzed. Head: Atraumatic, normocephalic. Endotracheal tube and orogastric tube are intact. HEENT:[Neck is supple.] [No neck masses.] [No thyromegaly.] [No JVD.] Chest: [Symmetrical chest expansion crackles at the bases bilaterally. Cardiac Exam: [Normal S1 and S2, no S3 gallop, no murmur.] Abdomen: [Soft, nontender, no megaly, no rebound, no guarding, normal bowel sounds.] Extremities: [No clubbing, 1+ bipedal edema, no cyanosis.] Neurological Exam: Could not assess, patient is fully sedated and paralyzed. Psychiatric: Could not be assessed patient is fully sedated and paralyzed. - Labs CBC & Chem 7: 08/11/21 03:30 08/11/21 03:30 Labs: Abnormal Lab Results - Last 24 Hours (Table) 08/10/21 08/10/21 08/11/21 Range/Units 17:38 23:24 01:10 WBC (3.8-10.6) k/uL RBC (4.30-5.90) m/uL Hgb (13.0-17.5) gm/dL Hct (39.0-53.0) % MCV (80.0-100.0) fL Neutrophils # (1.3-7.7) k/uL D-Dimer (<0.60) mg/L FEU ABG pCO2 47 H (35-45) mmHg ABG pO2 65 L (83-108) mmHg ABG HCO3 30 H (21-25) mmol/L ABG Total CO2 32 H (19-24) mmol/L ABG O2 Saturation 92.7 L (94-97) % Sodium (137-145) mmol/L Chloride (98-107) mmol/L BUN (9-20) mg/dL Creatinine (0.66-1.25) mg/dL Glucose (74-99) mg/dL POC Glucose (mg/dL) 243 H 207 H (75-99) mg/dL Calcium (8.4-10.2) mg/dL AST (17-59) U/L ALT (4-49) U/L Lactate Dehydrogenase (313-618) U/L C-Reactive Protein (<1.0) mg/dL Total Protein (6.3-8.2) g/dL Albumin (3.5-5.0) g/dL 08/11/21 08/11/21 08/11/21 Range/Units 03:30 03:30 03:30 WBC 14.0 H (3.8-10.6) k/uL RBC 3.34 L (4.30-5.90) m/uL Hgb 11.0 L (13.0-17.5) gm/dL Hct 34.9 L (39.0-53.0) % MCV 104.5 H (80.0-100.0) fL Neutrophils # 12.3 H (1.3-7.7) k/uL D-Dimer 1.76 H (<0.60) mg/L FEU ABG pCO2 (35-45) mmHg ABG pO2 (83-108) mmHg ABG HCO3 (21-25) mmol/L ABG Total CO2 (19-24) mmol/L ABG O2 Saturation (94-97) % Sodium 149 H (137-145) mmol/L Chloride 117 H (98-107) mmol/L BUN 37 H (9-20) mg/dL Creatinine 0.57 L (0.66-1.25) mg/dL Glucose 185 H (74-99) mg/dL POC Glucose (mg/dL) (75-99) mg/dL Calcium 8.2 L (8.4-10.2) mg/dL AST 89 H (17-59) U/L ALT 124 H (4-49) U/L Lactate Dehydrogenase 1059 H (313-618) U/L C-Reactive Protein 5.4 H (<1.0) mg/dL Total Protein 5.1 L (6.3-8.2) g/dL Albumin 2.4 L (3.5-5.0) g/dL 08/11/21 Range/Units 07:12 WBC (3.8-10.6) k/uL RBC (4.30-5.90) m/uL Hgb (13.0-17.5) gm/dL Hct (39.0-53.0) % MCV (80.0-100.0) fL Neutrophils # (1.3-7.7) k/uL D-Dimer (<0.60) mg/L FEU ABG pCO2 (35-45) mmHg ABG pO2 (83-108) mmHg ABG HCO3 (21-25) mmol/L ABG Total CO2 (19-24) mmol/L ABG O2 Saturation (94-97) % Sodium (137-145) mmol/L Chloride (98-107) mmol/L BUN (9-20) mg/dL Creatinine (0.66-1.25) mg/dL Glucose (74-99) mg/dL POC Glucose (mg/dL) 173 H (75-99) mg/dL Calcium (8.4-10.2) mg/dL AST (17-59) U/L ALT (4-49) U/L Lactate Dehydrogenase (313-618) U/L C-Reactive Protein (<1.0) mg/dL Total Protein (6.3-8.2) g/dL Albumin (3.5-5.0) g/dL Microbiology - Last 24 Hours (Table) 08/08/21 15:14 Blood Culture - Preliminary Blood No Growth after 48 hours 08/08/21 11:00 Blood Culture - Preliminary Blood No Growth after 48 hours Assessment and Plan Assessment: Impression: Acute hypoxic respiratory failure secondary to COVID-19 pneumonia, patient is not vaccinated. His symptoms started on 07/24/21, patient received monoclonal antibody infusion. Received Baricitinib on 07/28. Transferred to the ICU on 08/02 and intubated presently remains intubated sedated and mechanically ventilated as well as paralyzed. Suspect superimposed bacterial infection hence the patient is still on cefepime and Baricitinib has been discontinued. Cardiomyopathy and LV dysfunction, ejection fraction of 40-45%. Patient has chronic systolic congestive heart failure. Benign essential hypertension History of alcohol abuse, in remission History of PTSD History of underlying coronary artery disease Hypernatremia secondary to diuretics patient is receiving free water flushes. Suspect ARDS secondary to COVID-19 pneumonia patient is still requiring high FiO2 and high PEEP Recommendation: Continue present ventilatory settings again he is on assist control rate of 36 total volume 450 FiO2 60% , PEEP 16 and no changes made today. Continue COVID-19 cocktail. Continue Lovenox and Decadron. Continue GI and DVT prophylaxis. Continue nutritional support. Tinea enteral feeding. Increase free water flushes, to correct his hypernatremia. Continue empiric antibiotics. Pro-calcitonin is trending down. Not ready for any form of weaning at this point considering the patient is developing probably some ARDS. As a complication from COVID-19 pneumonia. Continue to monitor inflammatory markers. Remains critically ill Critical care time is over 30 minutes. Time with Patient: Greater than 30
[2021-08-11 12:15] LABS: Glucose,Whole Blood 209 mg/dL (75-99)
[2021-08-11] MEDS: SODIUM CHLORIDE 0.9% 1,000 ML IV SCH (14:37)
[2021-08-11] MEDS: ATORVASTATIN 40 MG TAB PO SCH (16:38)
[2021-08-11 16:59] LABS: Glucose,Whole Blood 241 mg/dL (75-99)
[2021-08-11] MEDS: NOREPINEPHRINE 8 MG in SODIUM CHLORIDE 0.9% 250 ML IV SCH (19:51)
[2021-08-11 23:04] LABS: Glucose,Whole Blood 191 mg/dL (75-99)
[2021-08-12] MEDS: CISATRACURIUM 200 MG in SODIUM CHLORIDE 0.9% 180 ML IV SCH ×3 (02:12→22:25)
[2021-08-12] MEDS: fentaNYL (PF). 1,000 MCG in SODIUM CHLORIDE 0.9% 80 ML IV SCH ×4 (02:56→21:58)
[2021-08-12] MEDS: ARTIFICIAL TEARS-HYPROMELLOSE DROPS 15 ML BTL BOTH EYES SCH ×5 (05:07→22:34)
[2021-08-12 05:14] LABS: Glucose,Whole Blood 179 mg/dL (75-99)
[2021-08-12] MEDS: INSULIN ASPART (NovoLOG) 100 UNIT/ML VIAL SQ SCH ×3 (05:16→17:28)
[2021-08-12 05:53] LABS: ABG Base Excess 5.4 mmol/L; ABG HCO3 30 mmol/L (21-25); ABG Oxygen Saturation 96.7 % (94-97); ABG PCO2 46 mmHg (35-45); ABG PH 7.42 (7.35-7.45); ABG PO2 85 mmHg (83-108); ABG TCO2 31 mmol/L (19-24)
[2021-08-12 05:57] LABS: Allen Test Performed? no
[2021-08-12 06:31] LABS: Basophils % (A) 0 %; Eosinophils # (A) 0.2 k/uL (0-0.7); Eosinophils % (A) 1 %; HCT 34.7 % (39.0-53.0); HGB 10.7 gm/dL (13.0-17.5); Hypochromasia Slight; Lymphocytes # (A) 1.4 k/uL (1.0-4.8); Lymphocytes % (A) 10 %; MCH 32.6 pg (25.0-35.0); MCHC 30.8 g/dL (31.0-37.0); MCV 105.6 fL (80.0-100.0); Macrocytosis Moderate; Mean Platelet Volume 8.6; Monocytes # (A) 0.4 k/uL (0-1.0); Monocytes % (A) 3 %; Neutrophils # (A) 12.6 k/uL (1.3-7.7); Neutrophils % (A) 86 %; Platelet Count 278 k/uL (150-450); RBC 3.29 m/uL (4.30-5.90); RDW 13.6 % (11.5-15.5); WBC 14.7 k/uL (3.8-10.6)
[2021-08-12 07:00] LABS: ALT 105 U/L (4-49); AST 59 U/L (17-59); African American GFR (CKD) >90 (>60 ml/min/1.73 sqM); Albumin 2.3 g/dL (3.5-5.0); Alkaline Phosphatase 85 U/L (38-126); Anion Gap 4 mmol/L; Blood Urea Nitrogen 31 mg/dL (9-20); C Reactive Protein 4.3 mg/dL (<1.0); Calcium 8.2 mg/dL (8.4-10.2); Carbon Dioxide 30 mmol/L (22-30); Chloride 112 mmol/L (98-107); Glucose 185 mg/dL (74-99); LDH 1014 U/L (313-618); Non-African American GFR(CKD) >90 (>60 ml/min/1.73 sqM); Sodium 146 mmol/L (137-145); Total Bilirubin 0.4 mg/dL (0.2-1.3); Total Protein 5.1 g/dL (6.3-8.2)
--- NOTE | 2021-08-12 07:17 | XR ---
EXAMINATION TYPE: XR chest 1V portable DATE OF EXAM: 08/12/2021 COMPARISON: August 11, 2021 HISTORY: 65 years Male. STUDY INDICATION GIVEN: covid . TECHNIQUE: AP chest radiograph IMPRESSION: Tip ET tube 5.7 cm above giovani. Left central venous catheter tip distal SVC. Enteric tube courses in to the stomach. No significant change to left greater than right predominantly interstitial mixed with airspace opaci ties which appear stable on the right and intervally worsened in the left lower hemithorax.There is n ew left lower lobe airspace opacities and/or subsegmental atelectasis. No pneumothorax, effusion or cardiomegaly.
[2021-08-12] MEDS: ALBUTEROL HFA INHALER INHALATION PRN ×4 (07:51→19:17)
[2021-08-12 09:58] LABS: Glucose,Whole Blood 197 mg/dL (75-99)
[2021-08-12] MEDS: ASPIRIN 81 MG PO SCH ×2 (10:19→22:34)
[2021-08-12] MEDS: CEFEPIME 2 GM in SODIUM CHLORIDE 0.9% 100 ML IVPB SCH ×2 (10:19→15:19)
[2021-08-12] MEDS: PANTOPRAZOLE 40 MG/10 ML VIAL IVP SCH (10:19)
[2021-08-12] MEDS: DEXAMETHASONE SOD PHOSPHATE 10 MG/ML 1 ML VIAL IVP SCH (10:19)
[2021-08-12] MEDS: CHLORHEXIDINE GLUCONATE 15 ML CUP MUCOUS MEM SCH ×2 (10:19→22:34)
[2021-08-12] MEDS: INSULIN DETEMIR (LEVEMIR) 100 UNIT/ML SYR SQ SCH (10:19)
[2021-08-12] MEDS: ZINC SULFATE 220 MG CAP PO SCH (10:19)
[2021-08-12] MEDS: ASCORBIC ACID 500 MG TAB PO SCH (10:19)
[2021-08-12] MEDS: CHOLECALCIFEROL 25 MCG (1000 IU) TABLET PO SCH (10:21)
[2021-08-12] MEDS: POTASSIUM CHLORIDE ER 20 MEQ TAB.ER PO SCH (10:22)
[2021-08-12] MEDS: ENOXAPARIN 40 MG/0.4 ML SYRINGE SQ SCH (10:23)
--- NOTE | 2021-08-12 11:41 | P.PN ---
Subjective Progress Note Date: 08/12/21 Principal diagnosis: Acute hypoxic respiratory failure secondary to COVID-19 pneumonia On 08/09/2021 patient is seen in follow-up in the intensive care unit, he remains intubated, sedated and paralyzed on assist-control mode of ventilation, with a rate of 36, tidal labs 450, FiO2 of 60% and PEEP of 18, this morning's blood gas was reviewed showing pO2 of 80, pCO2 of 50, and pH of 7.41, and this was done on FiO2 of 60%. Today's chest x-ray has been reviewed showing bilateral airspace disease, interstitial prominence, no evidence of pneumothorax subpleural effusion, endotracheal tube, NG tube, left subclavian central venous catheter are in appropriate positions. Patient is currently on Nimbex at 2 mics per kilo per minute, he is on Diprivan at 40 mics per kilo per minute, 0.9 at a rate of 75 ML per hour, fentanyl at 1.5 mics per kilo per minute. He is still requiring vasopressor support, and he is on norepinephrine at 0.12 mics per kilo per minute. Vasopressor requirements have remained stable over the last 24 hours, urine output is adequate, the order of 75-100 ML per hour. Patient is being treated for COVID-19 pneumonia with severe hypoxic respiratory failure. He continues on Decadron, Lasix has been discontinued, Baricitinib was placed on hold, she continues on cefepime for empiric antibiotic coverage. He is on prophylactic dose of Lovenox 40 mg daily Blood and sputum cultures have been reviewed, sputum culture only showed Haylee albicans. His labs have been reviewed, his white blood cell count is improving and is down to 14.5 on today's labs, hemoglobin is 12.3, pro-calcitonin level is 0.32 on today's labs, improved over last couple of days. Serum sodium is 148, potassium is 4.5, chloride is 112, CO2 is 32, BUN is 38, creatinine 0.65, his AST is 121 and ALT is 112, slightly improved, alk phos is remains within normal limits at 98, his i nflammatory markers are improving and LDH is down to 1032, and CRP is 18.4 on today's labs. Patient's serum sodium has increased, patient is receiving free water flushes with 200 mL every 6 hours, and he is tolerating his tube feedings of vital high-protein at a rate of 37 mL per hour. His urine output is adequate the order of 75-100 ML per hour, renal profile remains relatively stable, with BUN of 38, and creatinine is within normal limits at 0.65. Reevaluated today on 08/10/2021 patient remains in the ICU, intubated and mechanically ventilated. Patient is presently on assist control rate of 36 tidal volume 450 FiO2 60% PEEP was 18 and I cut it down to 16. Continues to have relatively elevated plateau pressure of 31. ABG showed a pO2 of 68 pCO2 49 pH of 7.42. Patient remains on multiple drips including propofol 40 norepinephrine 0.1 Nimbex at 1.5 and fentanyl at 1 mcg/kg per hour. Patient is on vital 1.2. W scan is 10.9 hemoglobin 11.5 electrolytes are normal BUN is normal creatinine is normal considering the sodium is high at 148 I recommended increasing free water via orogastric tube to 100 mL every 4 hours. Chest x-ray is showing slight improvement, nonetheless continues to show bilateral infiltrates consistent with severe case of COVID-19 pneumonia. Patient remains on the COVID-19 cocktail. Remains on cefepime empirically. Remains on Decadron 6 mg IV push daily, Lovenox 40 mg subcu daily Protonix 40 mg IV push daily and multivitamins. Reevaluated today on 08/11/21, patient remains in the ICU, intubated and mechanically ventilated. Presently on assist control rate of 36 tidal volume 450 FiO2 60% PEEP is at 16, ABG showed a pO2 of 65 pCO2 47 pH of 7.42, hence no changes were made in the ventilator settings today. Patient remains on Nimbex to microgram per kilo per minute norepinephrine 0.07 mcg/kg/m fentanyl at 1.5 mcg/kg/h and propofol 40 mcg/kg/m. Remains on enteral feeding. Chest x-ray continues show bilateral infiltrates consistent with COVID-19 pneumonia and the patient seems to have some component of ARDS. Continues to have relatively high plateau pressures. At least he got is 14 hemoglobin is 11. Sodium is high at 149 however his free water flushes were increased to 200 mL every 4 hours. LDH today is 1059. C-reactive protein is 5.4. Minimal improvement noted but nonetheless LDH seems to be trending down a bit. Reevaluated today on 08/12/21, patient remains intubated and mechanically ventilated in the ICU. He is on assist control rate of 36 tidal volume 450 FiO2 60% PEEP is 16 ABG showed a pO2 of 85 pCO2 46 pH of 7.42 hence I cut down his FiO2 to 55% and kept him on the same ventilator settings otherwise. Patient is on propofol at 50 mcg/kg/m norepinephrine 0.04 Nimbex at 3 mcg/kg/m and fentanyl at 1.5 mcg/kg/h. Patient is receiving enteral feeding vital AF at goal. His WBC is 14.7 hemoglobin is 10.7 otherwise the labs are basically unremarkable. Chest x-ray continues show bilateral infiltrates, slight improvement if any but definitely not getting any worse. Patient remains on the COVID-19 cocktail remains on cefepime. He is on Lovenox 40 mg subcu daily insulin Protonix 40 mg IV push daily and he is receiving zinc. Objective - Vital Signs Vital signs: Vital Signs Temp 98.7 F 08/11/21 20:00 Pulse 76 08/12/21 08:30 Resp 36 H 08/12/21 08:30 BP 107/68 08/12/21 08:30 Pulse Ox 91 L 08/12/21 08:30 Intake & Output 08/11/21 08/12/21 08/12/21 18:59 06:59 18:59 Intake Total 2301.172 2031.934 305.026 Output Total 835 855 110 Balance 6954.109 6651.934 195.026 Weight 114.9 kg Intake: IV 436 376 46 Cefepime 2 gm In Sodium 200 100 Chloride 0.9% 100 ml @ 25 mls/hr IVPB Q8HR [facility] Rx# :[id number] Sodium Chloride 0.9% 1, 200 240 40 000 ml @ 20 mls/hr IV . Q24H [facility] Rx#:[id number] pressure bag 36 36 6 Intake, IV Titration 821.172 648.934 185.026 Amount Cisatracurium 200 mg In 200 210.288 Sodium Chloride 0.9% 180 ml @ 1 MCG/KG/MIN 6.24 mls/hr IV .Q24H [facility] Rx#: [id number] Norepinephrine 8 mg In 258.000 72.31 Sodium Chloride 0.9% 250 ml @ 0.05 MCG/KG/MIN 10. 739 mls/hr IV .Q24H [facility] Rx#:[id number] fentaNYL (PF). 1,000 mcg 100 100 100 In Sodium Chloride 0.9% 80 ml @ 0.5 MCG/KG/HR 5.2 mls/hr IV .[id number] [facility] Rx#:[id number] propofoL 1,000 mg In 263.172 266.336 85.026 Empty Bag 1 bag @ Titrate IV .Q0M [facility] Rx#: [id number] Tube Feeding 444 407 74 Other 600 600 Output: Urine 835 855 110 Other: Voiding Method Indwelling Catheter Indwelling Catheter ABP, PAP, CO, CI - Last Documented Arterial Blood Pressure 93/50 - Exam Physical Exam revealed 65-year-old white male intubated and ventilated and sedated and paralyzed. Head: Atraumatic, normocephalic. Endotracheal tube and orogastric tube are intact. HEENT:[Neck is supple.] [No neck masses.] [No thyromegaly.] [No JVD.] Chest: [Crackles persist at the bases. Cardiac Exam: [Normal S1 and S2, no S3 gallop, no murmur.] Abdomen: [Soft, nontender, no megaly, no rebound, no guarding, normal bowel sounds.] Extremities: [No clubbing, trace of bipedal edema., no cyanosis.] Neurological Exam: Could not assess, patient is fully sedated and paralyzed. Psychiatric: Could not be assessed patient is fully sedated and paralyzed. - Labs CBC & Chem 7: 08/12/21 06:05 08/12/21 06:05 Labs: Abnormal Lab Results - Last 24 Hours (Table) 08/11/21 08/11/21 08/11/21 Range/Units 12:14 16:57 23:02 WBC (3.8-10.6) k/uL RBC (4.30-5.90) m/uL Hgb (13.0-17.5) gm/dL Hct (39.0-53.0) % MCV (80.0-100.0) fL MCHC (31.0-37.0) g/dL Neutrophils # (1.3-7.7) k/uL D-Dimer (<0.60) mg/L FEU ABG pCO2 (35-45) mmHg ABG HCO3 (21-25) mmol/L ABG Total CO2 (19-24) mmol/L Sodium (137-145) mmol/L Chloride (98-107) mmol/L BUN (9-20) mg/dL Creatinine (0.66-1.25) mg/dL Glucose (74-99) mg/dL POC Glucose (mg/dL) 209 H 241 H 191 H (75-99) mg/dL Calcium (8.4-10.2) mg/dL ALT (4-49) U/L Lactate Dehydrogenase (313-618) U/L C-Reactive Protein (<1.0) mg/dL Total Protein (6.3-8.2) g/dL Albumin (3.5-5.0) g/dL 08/12/21 08/12/21 08/12/21 Range/Units 05:11 05:51 06:05 WBC 14.7 H (3.8-10.6) k/uL RBC 3.29 L (4.30-5.90) m/uL Hgb 10.7 L (13.0-17.5) gm/dL Hct 34.7 L (39.0-53.0) % MCV 105.6 H (80.0-100.0) fL MCHC 30.8 L (31.0-37.0) g/dL Neutrophils # 12.6 H (1.3-7.7) k/uL D-Dimer (<0.60) mg/L FEU ABG pCO2 46 H (35-45) mmHg ABG HCO3 30 H (21-25) mmol/L ABG Total CO2 31 H (19-24) mmol/L Sodium (137-145) mmol/L Chloride (98-107) mmol/L BUN (9-20) mg/dL Creatinine (0.66-1.25) mg/dL Glucose (74-99) mg/dL POC Glucose (mg/dL) 179 H (75-99) mg/dL Calcium (8.4-10.2) mg/dL ALT (4-49) U/L Lactate Dehydrogenase (313-618) U/L C-Reactive Protein (<1.0) mg/dL Total Protein (6.3-8.2) g/dL Albumin (3.5-5.0) g/dL 08/12/21 08/12/21 08/12/21 Range/Units 06:05 06:05 09:46 WBC (3.8-10.6) k/uL RBC (4.30-5.90) m/uL Hgb (13.0-17.5) gm/dL Hct (39.0-53.0) % MCV (80.0-100.0) fL MCHC (31.0-37.0) g/dL Neutrophils # (1.3-7.7) k/uL D-Dimer 2.14 H (<0.60) mg/L FEU ABG pCO2 (35-45) mmHg ABG HCO3 (21-25) mmol/L ABG Total CO2 (19-24) mmol/L Sodium 146 H (137-145) mmol/L Chloride 112 H (98-107) mmol/L BUN 31 H (9-20) mg/dL Creatinine 0.54 L (0.66-1.25) mg/dL Glucose 185 H (74-99) mg/dL POC Glucose (mg/dL) 197 H (75-99) mg/dL Calcium 8.2 L (8.4-10.2) mg/dL ALT 105 H (4-49) U/L Lactate Dehydrogenase 1014 H (313-618) U/L C-Reactive Protein 4.3 H (<1.0) mg/dL Total Protein 5.1 L (6.3-8.2) g/dL Albumin 2.3 L (3.5-5.0) g/dL Microbiology - Last 24 Hours (Table) 08/08/21 15:14 Blood Culture - Preliminary Blood No Growth after 72 hours 08/08/21 11:00 Blood Culture - Preliminary Blood No Growth after 72 hours Assessment and Plan Assessment: Impression: Acute hypoxic respiratory failure secondary to COVID-19 pneumonia, patient is not vaccinated. His symptoms started on 07/24/21, patient received monoclonal antibody infusion. Received Baricitinib on 07/28. Transferred to the ICU on 08/02 and intubated presently remains intubated sedated and mechanically ventilated as well as paralyzed. Suspect superimposed bacterial infection hence the patient is still on cefepime and Baricitinib has been discontinued. Cardiomyopathy and LV dysfunction, ejection fraction of 40-45%. Patient has chronic systolic congestive heart failure. Benign essential hypertension History of alcohol abuse, in remission History of PTSD History of underlying coronary artery disease Hypernatremia secondary to diuretics patient is receiving free water flushes. Improving sodium is 146 today. Suspect ARDS secondary to COVID-19 pneumonia patient is still requiring high FiO2 and high PEEP Recommendation: Continue present ventilatory settings again he is on assist control rate of 36 total volume 450 FiO2 60% , PEEP 16 and no changes made today. FiO2 is At 55% today. Continue COVID-19 cocktail. Continue Lovenox and Decadron. Continue GI and DVT prophylaxis. Continue nutritional support. Patient is receiving enteral feeding. At goal. Increase free water flushes, sodium today is 146. Continue empiric antibiotics. Patient is not ready for weaning. Still requiring relatively high FiO2 and requiring high PEEP. Patient is marginal at best. Continue to monitor inflammatory markers. Remains critically ill Critical care time is over 30 minutes. Time with Patient: Greater than 30
[2021-08-12 12:15] LABS: Glucose,Whole Blood 185 mg/dL (75-99)
--- NOTE | 2021-08-12 12:31 | P.PN ---
Subjective This is a 65-year-old male well-known to me. He had been and getting sick last Friday. He was tested for COVID-19 and was positive. Unfortunately this patient is not vaccinated. He did receive monoclonal antibody infusion. On Friday he was initiated on Decadron and colchicine due to a obesity, history of smoking and chronic pain. He presented to the emergency room and [facility] and was found to 19 pneumonia on chest x-ray. KUB due to increased shortness of breath. He was found to have a pulse oximetry of 84 in the emergency room. He is currently on a 50% nonrebreather. His pulse oximeter is improved, but he does continue to short of breath this level. Initial laboratory studies were essentially normal. Diabetes 5 Hemoglobin 53. There Is No Significant Shift. 07/29/2021: Patient is slightly improved this morning. He is on nasal cannula high flow to 15 L/m. He is not really needing the nonrebreather. Pulmonology consult was reviewed. He is been started on Olumiant. Vital signs remained stable. His most recent pulse oximetry is 91%. Heart rate regular respiratory rate 18 and 20. She remains afebrile. Laboratory studies show a leukocytosis at 10.7 today with a neutrophil left shift at 9.4. Chemistries are essentially normal. CRP was 4.3 lactate dehydrogenase is 1389. Troponin 3 was negative. Pro-calcitonin is normal 0.07. Patient remains on albuterol HFA every 6 hours as needed. Xanax as started for anxiety. He remains on atorvastatin carvedilol, losartan, cyclobenzaprine. He is anticoagulated with Lovenox. He is on dexamethasone, Olumiant. Overall he indicates he feels about the same. He feels short of breath than he activity. He is minimally short of breath at rest. He denies any nausea or vomiting. He denies having any significant appetite. 08/06/2021:The patient is now sedated with propofol and fentanyl. He is in the prone position. Hes intubated. He is paralyzed with Nimbex. Critical care is following him. Currently hes on an FiO2 of 70% in a peep of 18. CXR shows bilateral pulmonary infiltrates. Labs are pending for this morning. The patient remains on Decadron and Covid cocktail. TMAX 100.9 DEG F WBC 18.7 with 17.4 Neutrophils ABG PH 7.36, pCO2 50 pO2 84 08/07/2021: Patient is currently intubated, sedated and paralyzed .Vent settings FiO2 of 70% and PEEP of 18, Patient is febrile Tmax 100.3 Deg F ABG today shows pO2 of 60, pCO2 of 50, and pH of 7.40, His chest x-ray shows no change, persistent bilateral multifocal opacities greatest in the lower lungs consistent with COVID-19 infection, blood cultures have shown no growth thus far. Labs WBC 16.7, hemoglobin of 12.7, d-dimer is 1.97, sodium is 142, potassium is 4.1, chloride is 109, BUN is 35, creatinine 0.64, LDH is down to 1132, CRP is 24.9, Patient was prone positioning for last several days, however he developed deep tissue injury on his face, and last night was placed supine. patient remains on fentanyl, Nimbex, Diprivan and feedings are currently off. Patient continues on cefepime, Lovenox, Decadron and COVID-19 multivitamins. Lasix was added yesterday. 08/08/2021: Patient is currently intubated, sedated and paralyzed .Vent settings FiO2 of 70% and PEEP of 18, Patient is febrile Tmax 100.2 Deg F ABG today shows pO2 of 60, pCO2 of 50, and pH of 7.40, His chest x-ray shows no change, persistent bilateral multifocal opacities greatest in the lower lungs consistent with COVID-19 infection, blood cultures have shown no growth thus far. Labs WBC 18.1 hemoglobin of 12.6, d-dimer is 2.52, sodium is 147, potassium is 4.2, chloride is 109, BUN is 37, creatinine 0.67, LDH is 1254, CRP is 26.0, Patient supine positioning after developing a deep tissue injury on his face when prone, patient remains on fentanyl, Nimbex, Diprivan and feedings are currently off. Patient continues on cefepime, Lovenox, Decadron and COVID-19 multivitamins. Lasix was stopped. August 09, 2021: patient remains in abated sedated paralyzed and on blood pressure pressers. Vent setting FiO2 60%. He's peep is 18. He is now afebrile, Pentecostalism is 36 controlled, heart rate remains in the 80s, blood pressure with Levophed last is 108/59. White count this morning is 14.5 with him over 2.3 absolute Philzer 13. D dimer 1.87. Blood gases show a PCO2 of 50, PO 280, pH 7.41, Chemistry showed slight hypernatremia of sodium 148. Do you want is 38 cretin 0.65. Glucose is over the past 24 hours have been elevated in the 200s. Liver function tests and markers and information to Covid remain elevated Blood cultures show no growth, sputum culture showed dima. [facility] consistent with Covid pneumonia. Patient remains on Covid protocol vitamin CD zinc anticoagulated with Lovenox, He remains Nimbex, fentanyl and diprivan to aid with vent support. cefepime for anabiotic coverage, He continues on dexamethasone 08/10/2021: patient remains in intubated sedated paralyzed and on blood pressure pressers. Vent setting FiO2 60%. He's peep is 16. The heart rate remains normal sinus rhythm, respiratory is 36 mechanically ventilated, blood pressure is low and he remains on norepinephrine. WBC count was 10.9 today with hemoglobin 11.5. Blood gases show pH of 7.4 to the PCO2 49 and PO2 of 68. Chemistry show persistent hypernatremia with sodium 140 potassium 4.5 BUN 30 creatinine 0.73. His glucoses remain in the 200s. CRP today 7.6, AST is 101 ALT is 123. Patient remains on cefepime for antibiotic coverage. Continues on his medications atorvastatin carvedilol dexamethasone Lovenox, and the other meds as reviewed per his med list. 08/11/2021: patient remains in intubated sedated paralyzed and on blood pressure pressers. Vent setting FiO2 60%. He's peep is 16. This is the same as one day ago. The heart rate remains normal sinus rhythm, respiratory is 36 mechanically ventilated, blood pressure is low and he remains on norepinephrine. He remains on cefepime, normal saline at KVO, propofol, norepinephrine, Cisatarurium. For IV infusions. I+O show 686.7 net in so far today. WBC count was 14 today with hemoglobin 11.0. Blood gases show pH of 7.42 to the PCO2 47 and PO2 of 65. Chemistry show persistent hypernatremia with sodium 149 potassium 4.6 BUN 37 creatinine 0.57. His glucoses remain in the 200s. CRP today 5.4, AST is 89 ALT is 124. Patient remains on cefepime for antibiotic coverage. Continues on his medications Dexamethasone Lovenox, and the other meds as reviewed per his med list. His came to visit him today and I spoke briefly with her about his care. 08/12/2021: patient remains in intubated sedated paralyzed and on blood pressure pressers. Vent setting FiO2 55%. He's peep is 16. The heart rate remains normal sinus rhythm, respiratory is 36 mechanically ventilated, blood pressure is low and he remains on norepinephrine. He remains on cefepime, normal saline at KVO, propofol, norepinephrine, Cisatar urium. For IV infusions. I+O show 686.7 net in so far today. WBC count was 14.7 today with hemoglobin 10.7. Blood gases show pH of 7.42 to the PCO2 46 and PO2 of 85. Chemistry improved with sodium 146. DDIMER 2.14.CRP is now 4.3 Patient remains on cefepime for antibiotic coverage. Continues on his medications Dexamethasone Lovenox, and the other meds as reviewed per his med list. I Discussed his care with the ICU nurse today. She reports that his Lower extremities are cooler than to the touch them they had been in the past. He's placed a blanket over them and is monitoring.. Objective - Vital Signs Vital signs: Vital Signs Temp 98.7 F 08/11/21 20:00 Pulse 76 08/12/21 08:30 Resp 36 H 08/12/21 08:30 BP 107/68 08/12/21 08:30 Pulse Ox 91 L 08/12/21 08:30 Intake & Output 08/11/21 08/12/21 08/12/21 18:59 06:59 18:59 Intake Total 2301.172 2031.934 305.026 Output Total 835 855 110 Balance 2296.801 9372.934 195.026 Weight 114.9 kg Intake: IV 436 376 46 Cefepime 2 gm In Sodium 200 100 Chloride 0.9% 100 ml @ 25 mls/hr IVPB Q8HR [facility] Rx# :[id number] Sodium Chloride 0.9% 1, 200 240 40 000 ml @ 20 mls/hr IV . Q24H [facility] Rx#:[id number] pressure bag 36 36 6 Intake, IV Titration 821.172 648.934 185.026 Amount Cisatracurium 200 mg In 200 210.288 Sodium Chloride 0.9% 180 ml @ 1 MCG/KG/MIN 6.24 mls/hr IV .Q24H [facility] Rx#: [id number] Norepinephrine 8 mg In 258.000 72.31 Sodium Chloride 0.9% 250 ml @ 0.05 MCG/KG/MIN 10. 739 mls/hr IV .Q24H [facility] Rx#:[id number] fentaNYL (PF). 1,000 mcg 100 100 100 In Sodium Chloride 0.9% 80 ml @ 0.5 MCG/KG/HR 5.2 mls/hr IV .[id number] [facility] Rx#:[id number] propofoL 1,000 mg In 263.172 266.336 85.026 Empty Bag 1 bag @ Titrate IV .Q0M [facility] Rx#: [id number] Tube Feeding 444 407 74 Other 600 600 Output: Urine 835 855 110 Other: Voiding Method Indwelling Catheter Indwelling Catheter ABP, PAP, CO, CI - Last Documented Arterial Blood Pressure 93/50 - Exam GENERAL EXAM: intubated,sedated, supine NECK: No masses, no JVD. CHEST: No chest wall deformity. LUNGS: Equal air entry with bibasilar crackles. CVS: S1 and S2 normal with no audible murmur, regular rhythm. ABDOMEN:exam deferred tdue to position SKIN: No rashes, DTI to right nare and Buttocks. Air pressure mattress in place Groin: Pickett to gravity in place CENTRAL NERVOUS SYSTEM: No focal deficits, tone is normal in all 4 extremities. EXTREMITIES: There is no peripheral edema. No clubbing, no cyanosis. Peripheral pulses are intact.WAffle boots in palce to offload - Labs CBC & Chem 7: 08/12/21 06:05 08/12/21 06:05 Labs: Abnormal Lab Results - Last 24 Hours (Table) 08/11/21 08/11/21 08/12/21 Range/Units 16:57 23:02 05:11 WBC (3.8-10.6) k/uL RBC (4.30-5.90) m/uL Hgb (13.0-17.5) gm/dL Hct (39.0-53.0) % MCV (80.0-100.0) fL MCHC (31.0-37.0) g/dL Neutrophils # (1.3-7.7) k/uL D-Dimer (<0.60) mg/L FEU ABG pCO2 (35-45) mmHg ABG HCO3 (21-25) mmol/L ABG Total CO2 (19-24) mmol/L Sodium (137-145) mmol/L Chloride (98-107) mmol/L BUN (9-20) mg/dL Creatinine (0.66-1.25) mg/dL Glucose (74-99) mg/dL POC Glucose (mg/dL) 241 H 191 H 179 H (75-99) mg/dL Calcium (8.4-10.2) mg/dL ALT (4-49) U/L Lactate Dehydrogenase (313-618) U/L C-Reactive Protein (<1.0) mg/dL Total Protein (6.3-8.2) g/dL Albumin (3.5-5.0) g/dL 08/12/21 08/12/21 08/12/21 Range/Units 05:51 06:05 06:05 WBC 14.7 H (3.8-10.6) k/uL RBC 3.29 L (4.30-5.90) m/uL Hgb 10.7 L (13.0-17.5) gm/dL Hct 34.7 L (39.0-53.0) % MCV 105.6 H (80.0-100.0) fL MCHC 30.8 L (31.0-37.0) g/dL Neutrophils # 12.6 H (1.3-7.7) k/uL D-Dimer (<0.60) mg/L FEU ABG pCO2 46 H (35-45) mmHg ABG HCO3 30 H (21-25) mmol/L ABG Total CO2 31 H (19-24) mmol/L Sodium 146 H (137-145) mmol/L Chloride 112 H (98-107) mmol/L BUN 31 H (9-20) mg/dL Creatinine 0.54 L (0.66-1.25) mg/dL Glucose 185 H (74-99) mg/dL POC Glucose (mg/dL) (75-99) mg/dL Calcium 8.2 L (8.4-10.2) mg/dL ALT 105 H (4-49) U/L Lactate Dehydrogenase 1014 H (313-618) U/L C-Reactive Protein 4.3 H (<1.0) mg/dL Total Protein 5.1 L (6.3-8.2) g/dL Albumin 2.3 L (3.5-5.0) g/dL 08/12/21 08/12/21 08/12/21 Range/Units 06:05 09:46 12:14 WBC (3.8-10.6) k/uL RBC (4.30-5.90) m/uL Hgb (13.0-17.5) gm/dL Hct (39.0-53.0) % MCV (80.0-100.0) fL MCHC (31.0-37.0) g/dL Neutrophils # (1.3-7.7) k/uL D-Dimer 2.14 H (<0.60) mg/L FEU ABG pCO2 (35-45) mmHg ABG HCO3 (21-25) mmol/L ABG Total CO2 (19-24) mmol/L Sodium (137-145) mmol/L Chloride (98-107) mmol/L BUN (9-20) mg/dL Creatinine (0.66-1.25) mg/dL Glucose (74-99) mg/dL POC Glucose (mg/dL) 197 H 185 H (75-99) mg/dL Calcium (8.4-10.2) mg/dL ALT (4-49) U/L Lactate Dehydrogenase (313-618) U/L C-Reactive Protein (<1.0) mg/dL Total Protein (6.3-8.2) g/dL Albumin (3.5-5.0) g/dL Microbiology - Last 24 Hours (Table) 08/08/21 15:14 Blood Culture - Preliminary Blood No Growth after 72 hours 08/08/21 11:00 Blood Culture - Preliminary Blood No Growth after 72 hours Assessment and Plan (1) ARDS (adult respiratory distress syndrome) Current Visit: Yes Status: Acute Code(s): J80 - ACUTE RESPIRATORY DISTRESS SYNDROME SNOMED Code(s): 70689287 (2) Pneumonia Current Visit: Yes Status: Acute Code(s): J18.9 - PNEUMONIA, UNSPECIFIED ORGANISM SNOMED Code(s): 598836125 (3) COVID-19 Current Visit: Yes Status: Acute Code(s): U07.1 - COVID-19 SNOMED Code(s): 403825451 (4) Essential (primary) hypertension Current Visit: Yes Status: Acute Code(s): I10 - ESSENTIAL (PRIMARY) HYPERTENSION SNOMED Code(s): 46347518 (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 Current Visit: Yes Status: Acute Code(s): Z79.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 SNOMED Code(s): 966475707 (6) CAD (coronary artery disease) Current Visit: Yes Status: Acute Code(s): I25.10 - ATHSCL HEART DISEASE OF [place] CORONARY ARTERY W/O ANG PCTRS SNOMED Code(s): 38701167 (7) Chronic systolic (congestive) heart failure Current Visit: Yes Status: Acute Code(s): I50.22 - CHRONIC SYSTOLIC (CONGESTIVE) HEART FAILURE SNOMED Code(s): 021584870 (8) Daily consumption of alcohol Current Visit: No Status: Acute Code(s): Z78.9 - OTHER SPECIFIED HEALTH STATUS SNOMED Code(s): 795815389 (9) Former smoker Current Visit: No Status: Acute Code(s): Z87.891 - PERSONAL HISTORY OF NICOTINE DEPENDENCE SNOMED Code(s): 6655830 (10) Shortness of breath at rest Current Visit: No Status: Acute Code(s): R06.02 - SHORTNESS OF BREATH SNOMED Code(s): 415126016 (11) Pneumonia due to COVID-19 virus Current Visit: Yes Status: Acute Code(s): U07.1 - COVID-19; J12.82 - PNEUMONIA DUE TO CORONAVIRUS DISEASE 2019 SNOMED Code(s): 906919610884539229 Plan: continue COVID protocol. critical care orders per pulmonology: continue Lovenoix, decadron, Cefepime, Tube feeds at goal Repeat labs per protocol Nursing continues to try to titrate down his sedation He'll be reevaluated in the next 24 hours.
[2021-08-12] MEDS: SODIUM CHLORIDE 0.9% 1,000 ML IV SCH (14:11)
[2021-08-12 17:23] LABS: Glucose,Whole Blood 222 mg/dL (75-99)
[2021-08-12] MEDS: ATORVASTATIN 40 MG TAB PO SCH (17:29)
[2021-08-12] MEDS: NOREPINEPHRINE 8 MG in SODIUM CHLORIDE 0.9% 250 ML IV SCH (23:27)
[2021-08-13 00:14] LABS: Glucose,Whole Blood 177 mg/dL (75-99)
[2021-08-13] MEDS: INSULIN ASPART (NovoLOG) 100 UNIT/ML VIAL SQ SCH ×4 (02:00→17:17)
[2021-08-13] MEDS: CEFEPIME 2 GM in SODIUM CHLORIDE 0.9% 100 ML IVPB SCH ×3 (02:00→16:35)
[2021-08-13] MEDS: ARTIFICIAL TEARS-HYPROMELLOSE DROPS 15 ML BTL BOTH EYES SCH ×6 (02:00→20:23)
[2021-08-13 04:30] LABS: Basophils % (A) 0 %; Eosinophils # (A) 0.2 k/uL (0-0.7); Eosinophils % (A) 1 %; HCT 32.9 % (39.0-53.0); HGB 10.1 gm/dL (13.0-17.5); Hypochromasia Moderate; Lymphocytes # (A) 1.1 k/uL (1.0-4.8); Lymphocytes % (A) 8 %; MCH 32.8 pg (25.0-35.0); MCHC 30.7 g/dL (31.0-37.0); MCV 106.9 fL (80.0-100.0); Macrocytosis Moderate; Mean Platelet Volume 8.7; Monocytes # (A) 0.4 k/uL (0-1.0); Monocytes % (A) 3 %; Neutrophils % (A) 88 %; Platelet Count 257 k/uL (150-450); RBC 3.08 m/uL (4.30-5.90); RDW 13.9 % (11.5-15.5); WBC 13.8 k/uL (3.8-10.6)
[2021-08-13] MEDS: CISATRACURIUM 200 MG in SODIUM CHLORIDE 0.9% 180 ML IV SCH (04:41)
[2021-08-13 04:45] LABS: ALT 98 U/L (4-49); AST 56 U/L (17-59); African American GFR (CKD) >90 (>60 ml/min/1.73 sqM); Albumin 2.1 g/dL (3.5-5.0); Alkaline Phosphatase 82 U/L (38-126); Anion Gap 4 mmol/L; Blood Urea Nitrogen 30 mg/dL (9-20); Calcium 8.1 mg/dL (8.4-10.2); Carbon Dioxide 29 mmol/L (22-30); Chloride 111 mmol/L (98-107); Glucose 178 mg/dL (74-99); Non-African American GFR(CKD) >90 (>60 ml/min/1.73 sqM); Potassium 4.1 mmol/L (3.5-5.1); Sodium 144 mmol/L (137-145); Total Bilirubin 0.3 mg/dL (0.2-1.3); Total Protein 4.8 g/dL (6.3-8.2)
[2021-08-13] MEDS: fentaNYL (PF). 1,000 MCG in SODIUM CHLORIDE 0.9% 80 ML IV SCH ×4 (04:45→22:03)
[2021-08-13 05:55] LABS: Glucose,Whole Blood 177 mg/dL (75-99)
[2021-08-13 06:15] LABS: ABG Base Excess 5.1 mmol/L; ABG HCO3 30 mmol/L (21-25); ABG Oxygen Saturation 94.5 % (94-97); ABG PCO2 49 mmHg (35-45); ABG PH 7.39 (7.35-7.45); ABG PO2 73 mmHg (83-108); ABG TCO2 32 mmol/L (19-24); Allen Test Performed? Yes
[2021-08-13] MEDS: INSULIN DETEMIR (LEVEMIR) 100 UNIT/ML SYR SQ SCH (06:49)
--- NOTE | 2021-08-13 07:30 | XR ---
EXAMINATION TYPE: XR chest 1V portable DATE OF EXAM: 08/13/2021 COMPARISON: 08/12/2021 HISTORY: SOB, Follow Up FINDINGS: Indwelling tubes and catheters are unchanged. Diffuse reticulonodular infiltrates persist unchanged greatest at the left lower lobe. Stable appearance of the cardio-mediastinal structures at this time. IMPRESSION: 1. Stable portable chest. Clinical correlation and follow up until resolution is recommended.
[2021-08-13] MEDS: ENOXAPARIN 40 MG/0.4 ML SYRINGE SQ SCH (08:31)
[2021-08-13] MEDS: PANTOPRAZOLE 40 MG/10 ML VIAL IVP SCH (08:31)
[2021-08-13] MEDS: CHLORHEXIDINE GLUCONATE 15 ML CUP MUCOUS MEM SCH ×2 (08:31→20:23)
[2021-08-13] MEDS: DEXAMETHASONE SOD PHOSPHATE 10 MG/ML 1 ML VIAL IVP SCH (08:36)
[2021-08-13] MEDS: CHOLECALCIFEROL 25 MCG (1000 IU) TABLET PO SCH (08:36)
[2021-08-13] MEDS: ASCORBIC ACID 500 MG TAB PO SCH (08:36)
[2021-08-13] MEDS: POTASSIUM CHLORIDE ER 20 MEQ TAB.ER PO SCH (08:36)
[2021-08-13] MEDS: ASPIRIN 81 MG PO SCH ×2 (08:36→20:23)
[2021-08-13] MEDS: ZINC SULFATE 220 MG CAP PO SCH (08:36)
[2021-08-13] MEDS: ALBUTEROL HFA INHALER INHALATION PRN ×3 (08:53→19:45)
[2021-08-13 11:24] LABS: Glucose,Whole Blood 168 mg/dL (75-99)
[2021-08-13] MEDS ORDERED: LIDOCAINE 1% INJ 10MG/ML (20 ML MDV) SQ ONE ×2 (11:40→11:45)
--- NOTE | 2021-08-13 12:12 | XR ---
EXAMINATION TYPE: XR chest 1V portable DATE OF EXAM: 08/13/2021 COMPARISON: 08/13/2021 HISTORY: SOB, Follow Up FINDINGS: Indwelling tubes and catheters are unchanged. Interval placement of right-sided PICC line with distal tip overlying the SVC. Scattered reticulonodular infiltrates are seen throughout both lung palacio unchanged from prior study . Small left-sided effusion noted. Stable appearance of the cardio-mediastinal structures at this time. Pleural effusion unchanged. IMPRESSION: 1. Stable portable chest. Clinical correlation and follow up until resolution is recommended.
--- NOTE | 2021-08-13 12:57 | P.PN ---
Subjective Progress Note Date: 08/13/21 Principal diagnosis: Acute hypoxic respiratory failure secondary to COVID-19 pneumonia On 08/09/2021 patient is seen in follow-up in the intensive care unit, he remains intubated, sedated and paralyzed on assist-control mode of ventilation, with a rate of 36, tidal labs 450, FiO2 of 60% and PEEP of 18, this morning's blood gas was reviewed showing pO2 of 80, pCO2 of 50, and pH of 7.41, and this was done on FiO2 of 60%. Today's chest x-ray has been reviewed showing bilateral airspace disease, interstitial prominence, no evidence of pneumothorax subpleural effusion, endotracheal tube, NG tube, left subclavian central venous catheter are in appropriate positions. Patient is currently on Nimbex at 2 mics per kilo per minute, he is on Diprivan at 40 mics per kilo per minute, 0.9 at a rate of 75 ML per hour, fentanyl at 1.5 mics per kilo per minute. He is still requiring vasopressor support, and he is on norepinephrine at 0.12 mics per kilo per minute. Vasopressor requirements have remained stable over the last 24 hours, urine output is adequate, the order of 75-100 ML per hour. Patient is being treated for COVID-19 pneumonia with severe hypoxic respiratory failure. He continues on Decadron, Lasix has been discontinued, Baricitinib was placed on hold, she continues on cefepime for empiric antibiotic coverage. He is on prophylactic dose of Lovenox 40 mg daily Blood and sputum cultures have been reviewed, sputum culture only showed Haylee albicans. His labs have been reviewed, his white blood cell count is improving and is down to 14.5 on today's labs, hemoglobin is 12.3, pro-calcitonin level is 0.32 on today's labs, improved over last couple of days. Serum sodium is 148, potassium is 4.5, chloride is 112, CO2 is 32, BUN is 38, creatinine 0.65, his AST is 121 and ALT is 112, slightly improved, alk phos is remains within normal limits at 98, his i nflammatory markers are improving and LDH is down to 1032, and CRP is 18.4 on today's labs. Patient's serum sodium has increased, patient is receiving free water flushes with 200 mL every 6 hours, and he is tolerating his tube feedings of vital high-protein at a rate of 37 mL per hour. His urine output is adequate the order of 75-100 ML per hour, renal profile remains relatively stable, with BUN of 38, and creatinine is within normal limits at 0.65. Reevaluated today on 08/10/2021 patient remains in the ICU, intubated and mechanically ventilated. Patient is presently on assist control rate of 36 tidal volume 450 FiO2 60% PEEP was 18 and I cut it down to 16. Continues to have relatively elevated plateau pressure of 31. ABG showed a pO2 of 68 pCO2 49 pH of 7.42. Patient remains on multiple drips including propofol 40 norepinephrine 0.1 Nimbex at 1.5 and fentanyl at 1 mcg/kg per hour. Patient is on vital 1.2. W scan is 10.9 hemoglobin 11.5 electrolytes are normal BUN is normal creatinine is normal considering the sodium is high at 148 I recommended increasing free water via orogastric tube to 100 mL every 4 hours. Chest x-ray is showing slight improvement, nonetheless continues to show bilateral infiltrates consistent with severe case of COVID-19 pneumonia. Patient remains on the COVID-19 cocktail. Remains on cefepime empirically. Remains on Decadron 6 mg IV push daily, Lovenox 40 mg subcu daily Protonix 40 mg IV push daily and multivitamins. Reevaluated today on 08/11/21, patient remains in the ICU, intubated and mechanically ventilated. Presently on assist control rate of 36 tidal volume 450 FiO2 60% PEEP is at 16, ABG showed a pO2 of 65 pCO2 47 pH of 7.42, hence no changes were made in the ventilator settings today. Patient remains on Nimbex to microgram per kilo per minute norepinephrine 0.07 mcg/kg/m fentanyl at 1.5 mcg/kg/h and propofol 40 mcg/kg/m. Remains on enteral feeding. Chest x-ray continues show bilateral infiltrates consistent with COVID-19 pneumonia and the patient seems to have some component of ARDS. Continues to have relatively high plateau pressures. At least he got is 14 hemoglobin is 11. Sodium is high at 149 however his free water flushes were increased to 200 mL every 4 hours. LDH today is 1059. C-reactive protein is 5.4. Minimal improvement noted but nonetheless LDH seems to be trending down a bit. Reevaluated today on 08/12/21, patient remains intubated and mechanically ventilated in the ICU. He is on assist control rate of 36 tidal volume 450 FiO2 60% PEEP is 16 ABG showed a pO2 of 85 pCO2 46 pH of 7.42 hence I cut down his FiO2 to 55% and kept him on the same ventilator settings otherwise. Patient is on propofol at 50 mcg/kg/m norepinephrine 0.04 Nimbex at 3 mcg/kg/m and fentanyl at 1.5 mcg/kg/h. Patient is receiving enteral feeding vital AF at goal. His WBC is 14.7 hemoglobin is 10.7 otherwise the labs are basically unremarkable. Chest x-ray continues show bilateral infiltrates, slight improvement if any but definitely not getting any worse. Patient remains on the COVID-19 cocktail remains on cefepime. He is on Lovenox 40 mg subcu daily insulin Protonix 40 mg IV push daily and he is receiving zinc. Reevaluated today on 08/13/21, patient remains in the ICU, intubated and mechanically ventilated. He is on assist control rate 36, tidal volume 450 FiO2 65% PEEP is 16. ABG is marginal with a pO2 of 73 pCO2 of 49 pH of 7.39 his O2 saturation is marginal hence no changes were made on the ventilator settings. Kept him on a PEEP of 16, may consider tapering her FiO2 down to 60%. Patient remains on Nimbex at 4 propofol at 50 mcg/kg/m and fentanyl 20 mcg/kg/h. Asked x-ray is not showing much of a change, it is showing multifocal infiltrates and ARDS type picture. Patient continues to have relatively high peak airway pressure and plateau pressures. Electrolytes are normal renal profile is normal WBC count is 13.8 hemoglobin is 10.1. Remains on albuterol, ascorbic acid, as pirin, Lipitor, cefepime Peridex, vitamin D, Decadron 6 mg of the push daily, Lovenox 40 mg subcu daily, insulin, intermittently on norepinephrine, but presently is off norepinephrine. Protonix 40 mg IV push daily, and he is also on zinc daily. Objective - Vital Signs Vital signs: Vital Signs Temp 98.2 F 08/13/21 08:00 Pulse 84 08/13/21 11:00 Resp 36 H 08/13/21 11:00 BP 118/76 08/13/21 10:15 Pulse Ox 94 L 08/13/21 11:00 Intake & Output 08/12/21 08/13/21 08/13/21 18:59 06:59 18:59 Intake Total 2223.742 1436.852 762.752 Output Total 535 785 290 Balance 1688.742 651.852 472.752 Intake: IV 476 253 130 Cefepime 2 gm In Sodium 200 75 Chloride 0.9% 100 ml @ 25 mls/hr IVPB Q8HR [facility] Rx# :[id number] Sodium Chloride 0.9% 1, 240 220 40 000 ml @ 20 mls/hr IV . Q24H [facility] Rx#:[id number] pressure bag 36 33 15 Intake, IV Titration 703.742 798.852 247.752 Amount Cisatracurium 200 mg In 231.616 311.488 Sodium Chloride 0.9% 180 ml @ 1 MCG/KG/MIN 6.24 mls/hr IV .Q24H [facility] Rx#: [id number] Norepinephrine 8 mg In 195.444 47.752 Sodium Chloride 0.9% 250 ml @ 0.05 MCG/KG/MIN 10. 739 mls/hr IV .Q24H [facility] Rx#:[id number] fentaNYL (PF). 1,000 mcg 187.1 200 100.000 In Sodium Chloride 0.9% 80 ml @ 0.5 MCG/KG/HR 5.2 mls/hr IV .[id number] [facility] Rx#:[id number] propofoL 1,000 mg In 285.026 91.92 100 Empty Bag 1 bag @ Titrate IV .Q0M [facility] Rx#: [id number] Tube Feeding 444 185 185 Other 600 200 200 Output: Urine 535 785 290 Other: Voiding Method Indwelling Catheter Indwelling Catheter ABP, PAP, CO, CI - Last Documented Arterial Blood Pressure 92/52 - Exam Physical Exam revealed 65-year-old white male intubated and ventilated and sedated and paralyzed. Head: Atraumatic, normocephalic. Endotracheal tube and orogastric tube are intact. HEENT:[Neck is supple.] [No neck masses.] [No thyromegaly.] [No JVD.] Chest: [Crackles persist at the bases. Cardiac Exam: [Normal S1 and S2, no S3 gallop, no murmur.] Abdomen: [Soft, nontender, no megaly, no rebound, no guarding, normal bowel sounds.] Extremities: [No clubbing, trace of bipedal edema., no cyanosis.] Neurological Exam: Could not assess, patient is fully sedated and paralyzed. Psychiatric: Could not be assessed patient is fully sedated and paralyzed. - Labs CBC & Chem 7: 08/13/21 04:15 08/13/21 04:15 Labs: Abnormal Lab Results - Last 24 Hours (Table) 08/12/21 08/13/21 08/13/21 Range/Units 17:21 00:13 04:15 WBC 13.8 H (3.8-10.6) k/uL RBC 3.08 L (4.30-5.90) m/uL Hgb 10.1 L (13.0-17.5) gm/dL Hct 32.9 L (39.0-53.0) % MCV 106.9 H (80.0-100.0) fL MCHC 30.7 L (31.0-37.0) g/dL Neutrophils # 12.0 H (1.3-7.7) k/uL ABG pCO2 (35-45) mmHg ABG pO2 (83-108) mmHg ABG HCO3 (21-25) mmol/L ABG Total CO2 (19-24) mmol/L Chloride (98-107) mmol/L BUN (9-20) mg/dL Creatinine (0.66-1.25) mg/dL Glucose (74-99) mg/dL POC Glucose (mg/dL) 222 H 177 H (75-99) mg/dL Calcium (8.4-10.2) mg/dL ALT (4-49) U/L Total Protein (6.3-8.2) g/dL Albumin (3.5-5.0) g/dL 08/13/21 08/13/21 08/13/21 Range/Units 04:15 05:54 06:00 WBC (3.8-10.6) k/uL RBC (4.30-5.90) m/uL Hgb (13.0-17.5) gm/dL Hct (39.0-53.0) % MCV (80.0-100.0) fL MCHC (31.0-37.0) g/dL Neutrophils # (1.3-7.7) k/uL ABG pCO2 49 H (35-45) mmHg ABG pO2 73 L (83-108) mmHg ABG HCO3 30 H (21-25) mmol/L ABG Total CO2 32 H (19-24) mmol/L Chloride 111 H (98-107) mmol/L BUN 30 H (9-20) mg/dL Creatinine 0.62 L (0.66-1.25) mg/dL Glucose 178 H (74-99) mg/dL POC Glucose (mg/dL) 177 H (75-99) mg/dL Calcium 8.1 L (8.4-10.2) mg/dL ALT 98 H (4-49) U/L Total Protein 4.8 L (6.3-8.2) g/dL Albumin 2.1 L (3.5-5.0) g/dL 08/13/21 Range/Units 11:23 WBC (3.8-10.6) k/uL RBC (4.30-5.90) m/uL Hgb (13.0-17.5) gm/dL Hct (39.0-53.0) % MCV (80.0-100.0) fL MCHC (31.0-37.0) g/dL Neutrophils # (1.3-7.7) k/uL ABG pCO2 (35-45) mmHg ABG pO2 (83-108) mmHg ABG HCO3 (21-25) mmol/L ABG Total CO2 (19-24) mmol/L Chloride (98-107) mmol/L BUN (9-20) mg/dL Creatinine (0.66-1.25) mg/dL Glucose (74-99) mg/dL POC Glucose (mg/dL) 168 H (75-99) mg/dL Calcium (8.4-10.2) mg/dL ALT (4-49) U/L Total Protein (6.3-8.2) g/dL Albumin (3.5-5.0) g/dL Microbiology - Last 24 Hours (Table) 08/08/21 15:14 Blood Culture - Preliminary Blood No Growth after 96 hours 08/08/21 11:00 Blood Culture - Preliminary Blood No Growth after 96 hours Assessment and Plan Assessment: Impression: Acute hypoxic respiratory failure secondary to COVID-19 pneumonia, patient is not vaccinated. His symptoms started on 07/24/21, patient received monoclonal an tibody infusion. Received Baricitinib on 07/28. Transferred to the ICU on 08/02 and intubated presently remains intubated sedated and mechanically ventilated as well as paralyzed. Suspect superimposed bacterial infection hence the patient is still on cefepime and Baricitinib has been discontinued. Cardiomyopathy and LV dysfunction, ejection fraction of 40-45%. Patient has chronic systolic congestive heart failure. Benign essential hypertension History of alcohol abuse, in remission History of PTSD History of underlying coronary artery disease Hypernatremia secondary to diuretics patient is receiving free water flushes. Improving sodium is 144 today. Suspect ARDS secondary to COVID-19 pneumonia patient is still requiring high FiO2 and high PEEP Recommendation: Continue present ventilatory settings again he is on assist control rate of 36 total volume 450 FiO2 65% , PEEP 16 and no changes made today. FiO2 has been increased since yesterday up to 65% with marginal O2 saturation. Recommended holding at least Nimbex today, and assess if we could control the patient mostly with propofol and fentanyl without paralytics. Clearly the patient is not ready for any weaning. Continue COVID-19 cocktail. Continue Lovenox and Decadron. Continue GI and DVT prophylaxis. Continue nutritional support./Enteral feeding. Continue empiric antibiotics. Patient is not ready for weaning. Remains critically ill Critical care time is over 30 minutes. Time with Patient: Greater than 30
[2021-08-13 17:16] LABS: Glucose,Whole Blood 227 mg/dL (75-99)
[2021-08-13] MEDS: ATORVASTATIN 40 MG TAB PO SCH (17:17)
--- NOTE | 2021-08-13 19:33 | P.PN ---
Subjective Progress Note Date: 08/13/21 Principal diagnosis: Acute hypoxic respiratory failure secondary to COVID-19 pneumonia 64-year-old male patient presented emergency room on 07/28/2021 for shortness of breath and noted to have pulse oximetry of 84% in the emergency room. Patient had been feeling ill on the Friday before and was found to be Covid positive and then area and patient did receive the monoclonal antibody infusion and on Friday he was initiated on Decadron and colchicine due to obesity and history of smoking and chronic pain. Patient was eventually intubated days later transferred to the ICU he remains. Currently patient is on before meals of 36 had about 450 PEEP is 16, and on 60% FiO2. Patient was on Pneumovax that was stopped this morning around 10 AM he continues on fentanyl infusion, and propofol infusion. Patient is also covered with antibiotics of cefepime every 8 hours, as anticoagulated with subcu heparin. 6 recent set of vitals revealed blood pressure 91/54, pulse oxygenation is 93%, heart rate is 71 and respiratory and 36. Patient had a central line removed today with a PICC line placed and with a right radial arterial line. He is receiving tube feedings to goal 25 an hour through an OG tube Objective - Vital Signs Vital signs: Vital Signs Temp 98.2 F 08/13/21 16:00 Pulse 71 08/13/21 19:00 Resp 36 H 08/13/21 19:00 BP 112/69 08/13/21 18:15 Pulse Ox 93 L 08/13/21 19:00 Intake & Output 08/13/21 08/13/21 08/14/21 06:59 18:59 06:59 Intake Total 0293.048 3756.464 73 Output Total 785 835 60 Balance 651.852 820.464 13 Weight 114.9 kg Intake: IV 253 406 48 Cefepime 2 gm In Sodium 150 25 Chloride 0.9% 100 ml @ 25 mls/hr IVPB Q8HR [facility] Rx# :[id number] Sodium Chloride 0.9% 1, 220 220 20 000 ml @ 20 mls/hr IV . Q24H [facility] Rx#:[id number] pressure bag 33 36 3 Intake, IV Titration 798.852 623.464 Amount Cisatracurium 200 mg In 311.488 Sodium Chloride 0.9% 180 ml @ 1 MCG/KG/MIN 6.24 mls/hr IV .Q24H [facility] Rx#: [id number] Norepinephrine 8 mg In 195.444 127.437 Sodium Chloride 0.9% 250 ml @ 0.05 MCG/KG/MIN 10. 739 mls/hr IV .Q24H [facility] Rx#:[id number] fentaNYL (PF). 1,000 mcg 200 196.027 In Sodium Chloride 0.9% 80 ml @ 0.5 MCG/KG/HR 5.2 mls/hr IV .[id number] [facility] Rx#:[id number] propofoL 1,000 mg In 91.92 300.00 Empty Bag 1 bag @ Titrate IV .Q0M [facility] Rx#: [id number] Tube Feeding 185 396 25 Other 200 230 Output: Urine 785 835 60 Other: Voiding Method Indwelling Catheter Indwelling Catheter ABP, PAP, CO, CI - Last Documented Arterial Blood Pressure 91/54 - Exam GENERAL: Patient is intubated and sedated. HEAD: Atraumatic, normocephalic. EYES: Pupils equal round and reactive to light, sclera anicteric, conjunctiva are normal. ENT: Moist mucous membranes. NECK: No lymphadenopathy or JVD, no thyromegaly LUNGS: Breath sounds clear to auscultation bilaterally and equal. No wheezes rales or rhonchi, mechanical ventilation sounds appreciated HEART: Regular rate and rhythm without murmurs.S1S2 Normal ABDOMEN: Soft, nontender, normoactive bowel sounds. No masses appreciated. EXTREMITIES: Waffle boots in place, no pitting or edema. No clubbing or cyanosis. NEUROLOGICAL: Sedated and tube, patient unable to follow commands. PSYCH: . SKIN: Warm, Dry, rashes, right nare DTI. Specialty mattress and place - Labs CBC & Chem 7: 08/13/21 04:15 08/13/21 04:15 Labs: Abnormal Lab Results - Last 24 Hours (Table) 08/13/21 08/13/21 08/13/21 Range/Units 00:13 04:15 04:15 WBC 13.8 H (3.8-10.6) k/uL RBC 3.08 L (4.30-5.90) m/uL Hgb 10.1 L (13.0-17.5) gm/dL Hct 32.9 L (39.0-53.0) % MCV 106.9 H (80.0-100.0) fL MCHC 30.7 L (31.0-37.0) g/dL Neutrophils # 12.0 H (1.3-7.7) k/uL ABG pCO2 (35-45) mmHg ABG pO2 (83-108) mmHg ABG HCO3 (21-25) mmol/L ABG Total CO2 (19-24) mmol/L Chloride 111 H (98-107) mmol/L BUN 30 H (9-20) mg/dL Creatinine 0.62 L (0.66-1.25) mg/dL Glucose 178 H (74-99) mg/dL POC Glucose (mg/dL) 177 H (75-99) mg/dL Calcium 8.1 L (8.4-10.2) mg/dL ALT 98 H (4-49) U/L Total Protein 4.8 L (6.3-8.2) g/dL Albumin 2.1 L (3.5-5.0) g/dL 08/13/21 08/13/21 08/13/21 Range/Units 05:54 06:00 11:23 WBC (3.8-10.6) k/uL RBC (4.30-5.90) m/uL Hgb (13.0-17.5) gm/dL Hct (39.0-53.0) % MCV (80.0-100.0) fL MCHC (31.0-37.0) g/dL Neutrophils # (1.3-7.7) k/uL ABG pCO2 49 H (35-45) mmHg ABG pO2 73 L (83-108) mmHg ABG HCO3 30 H (21-25) mmol/L ABG Total CO2 32 H (19-24) mmol/L Chloride (98-107) mmol/L BUN (9-20) mg/dL Creatinine (0.66-1.25) mg/dL Glucose (74-99) mg/dL POC Glucose (mg/dL) 177 H 168 H (75-99) mg/dL Calcium (8.4-10.2) mg/dL ALT (4-49) U/L Total Protein (6.3-8.2) g/dL Albumin (3.5-5.0) g/dL 08/13/21 Range/Units 17:14 WBC (3.8-10.6) k/uL RBC (4.30-5.90) m/uL Hgb (13.0-17.5) gm/dL Hct (39.0-53.0) % MCV (80.0-100.0) fL MCHC (31.0-37.0) g/dL Neutrophils # (1.3-7.7) k/uL ABG pCO2 (35-45) mmHg ABG pO2 (83-108) mmHg ABG HCO3 (21-25) mmol/L ABG Total CO2 (19-24) mmol/L Chloride (98-107) mmol/L BUN (9-20) mg/dL Creatinine (0.66-1.25) mg/dL Glucose (74-99) mg/dL POC Glucose (mg/dL) 227 H (75-99) mg/dL Calcium (8.4-10.2) mg/dL ALT (4-49) U/L Total Protein (6.3-8.2) g/dL Albumin (3.5-5.0) g/dL Microbiology - Last 24 Hours (Table) 08/08/21 15:14 Blood Culture - Preliminary Blood No Growth after 120 hours 08/08/21 11:00 Blood Culture - Preliminary Blood No Growth after 120 hours Assessment and Plan (1) ARDS (adult respiratory distress syndrome) Current Visit: Yes Status: Acute Code(s): J80 - ACUTE RESPIRATORY DISTRESS SYNDROME SNOMED Code(s): 84914234 (2) CAD (coronary artery disease) Current Visit: Yes Status: Acute Code(s): I25.10 - ATHSCL HEART DISEASE OF [place] CORONARY ARTERY W/O ANG PCTRS SNOMED Code(s): 23544437 (3) COVID-19 Current Visit: Yes Status: Acute Code(s): U07.1 - COVID-19 SNOMED Code(s): 576204831 (4) Chronic systolic (congestive) heart failure Current Visit: Yes Status: Acute Code(s): I50.22 - CHRONIC SYSTOLIC (CONGESTIVE) HEART FAILURE SNOMED Code(s): 665207011 (5) Essential (primary) hypertension Current Visit: Yes Status: Acute Code(s): I10 - ESSENTIAL (PRIMARY) HYPERTENSION SNOMED Code(s): 13568610 (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 Current Visit: Yes Status: Acute Code(s): Z79.891 - PENITENTIARY (CURRENT) USE OF OPIATE ANALGESIC SNOMED Code(s): 753245798 (7) Pneumonia due to COVID-19 virus Current Visit: Yes Status: Acute Code(s): U07.1 - COVID-19; J12.82 - PNEUMONIA DUE TO CORONAVIRUS DISEASE 2018 SNOMED Code(s): 423283100830655387 (8) Daily consumption of alcohol Current Visit: No Status: Acute Code(s): Z78.9 - OTHER SPECIFIED HEALTH ST ATUS SNOMED Code(s): 416955092 (9) Exertional dyspnea Current Visit: No Status: Acute Code(s): R06.00 - DYSPNEA, UNSPECIFIED SNOMED Code(s): 55159514 (10) Former smoker Current Visit: No Status: Acute Code(s): Z87.891 - PERSONAL HISTORY OF NICOTINE DEPENDENCE SNOMED Code(s): 1608499 (11) Shortness of breath at rest Current Visit: No Status: Acute Code(s): R06.02 - SHORTNESS OF BREATH SNOMED Code(s): 917387933 Plan: Continue current medication regimen Orders per critical care We'll continue to follow labs and vitals and treat accordingly We'll reevaluate again in 24 hours Time with Patient: Greater than 30
[2021-08-13] MEDS: SODIUM CHLORIDE 0.9% 1,000 ML IV SCH (20:16)
[2021-08-14 00:35] LABS: Glucose,Whole Blood 154 mg/dL (75-99)
[2021-08-14] MEDS: CEFEPIME 2 GM in SODIUM CHLORIDE 0.9% 100 ML IVPB SCH ×3 (00:47→15:14)
[2021-08-14] MEDS: INSULIN ASPART (NovoLOG) 100 UNIT/ML VIAL SQ SCH ×4 (00:47→18:23)
[2021-08-14] MEDS: ARTIFICIAL TEARS-HYPROMELLOSE DROPS 15 ML BTL BOTH EYES SCH ×6 (00:48→21:12)
[2021-08-14] MEDS: fentaNYL (PF). 1,000 MCG in SODIUM CHLORIDE 0.9% 80 ML IV SCH ×5 (02:43→21:44)
[2021-08-14 05:53] LABS: ABG Base Excess -1.8 mmol/L; ABG HCO3 23 mmol/L (21-25); ABG Oxygen Saturation 95.8 % (94-97); ABG PCO2 35 mmHg (35-45); ABG PH 7.42 (7.35-7.45); ABG PO2 73 mmHg (83-108); ABG TCO2 24 mmol/L (19-24)
[2021-08-14 05:55] LABS: Allen Test Performed? No
[2021-08-14 06:54] LABS: Glucose,Whole Blood 96 mg/dL (75-99)
[2021-08-14] MEDS: INSULIN DETEMIR (LEVEMIR) 100 UNIT/ML SYR SQ SCH (06:57)
[2021-08-14] MEDS: ALBUTEROL HFA INHALER INHALATION PRN ×3 (07:36→19:17)
--- NOTE | 2021-08-14 08:01 | XR ---
EXAMINATION TYPE: XR chest 1V portable DATE OF EXAM: 08/14/2021 COMPARISON: 08/13/2021 HISTORY: SOB, Follow Up FINDINGS: Indwelling tubes and catheters are unchanged. Diffuse bilateral reticulonodular infiltrates persist unchanged. Stable appearance of the cardio-mediastinal structures at this time. IMPRESSION: 1. Stable portable chest. Clinical correlation and follow up until resolution is recommended.
[2021-08-14] MEDS: CHOLECALCIFEROL 25 MCG (1000 IU) TABLET PO SCH (08:39)
[2021-08-14] MEDS: ASPIRIN 81 MG PO SCH ×2 (08:39→21:15)
[2021-08-14] MEDS: CHLORHEXIDINE GLUCONATE 15 ML CUP MUCOUS MEM SCH ×2 (08:39→21:15)
[2021-08-14] MEDS: PANTOPRAZOLE 40 MG/10 ML VIAL IVP SCH (08:39)
[2021-08-14] MEDS: ENOXAPARIN 40 MG/0.4 ML SYRINGE SQ SCH (08:39)
[2021-08-14] MEDS: ASCORBIC ACID 500 MG TAB PO SCH (08:39)
[2021-08-14] MEDS: ZINC SULFATE 220 MG CAP PO SCH (08:39)
[2021-08-14] MEDS: DEXAMETHASONE SOD PHOSPHATE 10 MG/ML 1 ML VIAL IVP SCH (08:39)
[2021-08-14] MEDS: CISATRACURIUM 200 MG in SODIUM CHLORIDE 0.9% 180 ML IV SCH (11:17)
[2021-08-14 11:57] LABS: Glucose,Whole Blood 127 mg/dL (75-99)
[2021-08-14] MEDS: SODIUM CHLORIDE 0.9% 1,000 ML IV SCH (12:01)
[2021-08-14 12:10] LABS: Glucose,Whole Blood 122 mg/dL (75-99)
--- NOTE | 2021-08-14 13:46 | P.PN ---
Subjective Progress Note Date: 08/14/21 Principal diagnosis: Acute hypoxic respiratory failure secondary to COVID-19 pneumonia On 08/09/2021 patient is seen in follow-up in the intensive care unit, he remains intubated, sedated and paralyzed on assist-control mode of ventilation, with a rate of 36, tidal labs 450, FiO2 of 60% and PEEP of 18, this morning's blood gas was reviewed showing pO2 of 80, pCO2 of 50, and pH of 7.41, and this was done on FiO2 of 60%. Today's chest x-ray has been reviewed showing bilateral airspace disease, interstitial prominence, no evidence of pneumothorax subpleural effusion, endotracheal tube, NG tube, left subclavian central venous catheter are in appropriate positions. Patient is currently on Nimbex at 2 mics per kilo per minute, he is on Diprivan at 40 mics per kilo per minute, 0.9 at a rate of 75 ML per hour, fentanyl at 1.5 mics per kilo per minute. He is still requiring vasopressor support, and he is on norepinephrine at 0.12 mics per kilo per minute. Vasopressor requirements have remained stable over the last 24 hours, urine output is adequate, the order of 75-100 ML per hour. Patient is being treated for COVID-19 pneumonia with severe hypoxic respiratory failure. He continues on Decadron, Lasix has been discontinued, Baricitinib was placed on hold, she continues on cefepime for empiric antibiotic coverage. He is on prophylactic dose of Lovenox 40 mg daily Blood and sputum cultures have been reviewed, sputum culture only showed Haylee albicans. His labs have been reviewed, his white blood cell count is improving and is down to 14.5 on today's labs, hemoglobin is 12.3, pro-calcitonin level is 0.32 on today's labs, improved over last couple of days. Serum sodium is 148, potassium is 4.5, chloride is 112, CO2 is 32, BUN is 38, creatinine 0.65, his AST is 121 and ALT is 112, slightly improved, alk phos is remains within normal limits at 98, his i nflammatory markers are improving and LDH is down to 1032, and CRP is 18.4 on today's labs. Patient's serum sodium has increased, patient is receiving free water flushes with 200 mL every 6 hours, and he is tolerating his tube feedings of vital high-protein at a rate of 37 mL per hour. His urine output is adequate the order of 75-100 ML per hour, renal profile remains relatively stable, with BUN of 38, and creatinine is within normal limits at 0.65. Reevaluated today on 08/10/2021 patient remains in the ICU, intubated and mechanically ventilated. Patient is presently on assist control rate of 36 tidal volume 450 FiO2 60% PEEP was 18 and I cut it down to 16. Continues to have relatively elevated plateau pressure of 31. ABG showed a pO2 of 68 pCO2 49 pH of 7.42. Patient remains on multiple drips including propofol 40 norepinephrine 0.1 Nimbex at 1.5 and fentanyl at 1 mcg/kg per hour. Patient is on vital 1.2. W scan is 10.9 hemoglobin 11.5 electrolytes are normal BUN is normal creatinine is normal considering the sodium is high at 148 I recommended increasing free water via orogastric tube to 100 mL every 4 hours. Chest x-ray is showing slight improvement, nonetheless continues to show bilateral infiltrates consistent with severe case of COVID-19 pneumonia. Patient remains on the COVID-19 cocktail. Remains on cefepime empirically. Remains on Decadron 6 mg IV push daily, Lovenox 40 mg subcu daily Protonix 40 mg IV push daily and multivitamins. Reevaluated today on 08/11/21, patient remains in the ICU, intubated and mechanically ventilated. Presently on assist control rate of 36 tidal volume 450 FiO2 60% PEEP is at 16, ABG showed a pO2 of 65 pCO2 47 pH of 7.42, hence no changes were made in the ventilator settings today. Patient remains on Nimbex to microgram per kilo per minute norepinephrine 0.07 mcg/kg/m fentanyl at 1.5 mcg/kg/h and propofol 40 mcg/kg/m. Remains on enteral feeding. Chest x-ray continues show bilateral infiltrates consistent with COVID-19 pneumonia and the patient seems to have some component of ARDS. Continues to have relatively high plateau pressures. At least he got is 14 hemoglobin is 11. Sodium is high at 149 however his free water flushes were increased to 200 mL every 4 hours. LDH today is 1059. C-reactive protein is 5.4. Minimal improvement noted but nonetheless LDH seems to be trending down a bit. Reevaluated today on 08/12/21, patient remains intubated and mechanically ventilated in the ICU. He is on assist control rate of 36 tidal volume 450 FiO2 60% PEEP is 16 ABG showed a pO2 of 85 pCO2 46 pH of 7.42 hence I cut down his FiO2 to 55% and kept him on the same ventilator settings otherwise. Patient is on propofol at 50 mcg/kg/m norepinephrine 0.04 Nimbex at 3 mcg/kg/m and fentanyl at 1.5 mcg/kg/h. Patient is receiving enteral feeding vital AF at goal. His WBC is 14.7 hemoglobin is 10.7 otherwise the labs are basically unremarkable. Chest x-ray continues show bilateral infiltrates, slight improvement if any but definitely not getting any worse. Patient remains on the COVID-19 cocktail remains on cefepime. He is on Lovenox 40 mg subcu daily insulin Protonix 40 mg IV push daily and he is receiving zinc. Reevaluated today on 08/13/21, patient remains in the ICU, intubated and mechanically ventilated. He is on assist control rate 36, tidal volume 450 FiO2 65% PEEP is 16. ABG is marginal with a pO2 of 73 pCO2 of 49 pH of 7.39 his O2 saturation is marginal hence no changes were made on the ventilator settings. Kept him on a PEEP of 16, may consider tapering her FiO2 down to 60%. Patient remains on Nimbex at 4 propofol at 50 mcg/kg/m and fentanyl 20 mcg/kg/h. Asked x-ray is not showing much of a change, it is showing multifocal infiltrates and ARDS type picture. Patient continues to have relatively high peak airway pressure and plateau pressures. Electrolytes are normal renal profile is normal WBC count is 13.8 hemoglobin is 10.1. Remains on albuterol, ascorbic acid, as pirin, Lipitor, cefepime Peridex, vitamin D, Decadron 6 mg of the push daily, Lovenox 40 mg subcu daily, insulin, intermittently on norepinephrine, but presently is off norepinephrine. Protonix 40 mg IV push daily, and he is also on zinc daily. Reevaluated today on 08/14/21, patient remains in the ICU, intubated and mechanically ventilated. Remains on assist control rate of 36, FiO2 of 80% toda y a to the patient desaturated and her FiO2 had to be increased last night. He is on PEEP of 16, chest x-ray is showing slightly worsening bilateral infiltrates. Patient remains sedated but not paralyzed over the last 24 hours, however considering his worsening oxygenation I recommended that we go back on Nimbex in addition to propofol at 60 and fentanyl at 2 mcg/kg/h. Patient is hemodynamically stable, not requiring any pressors. ABG this morning on 80% showed a pO2 of 73 pCO2 of 35 pH of 7.42. Again his chest x-ray is showing a worsening picture of his bilateral infiltrates. WBC count today is 13.8 hemoglobin is 10.1. Basic metabolic profile is relatively normal. Patient remains on enteral feeding. Via orogastric tube. Remains on the same medications as listed above. And he is empirically on cefepime. Objective - Vital Signs Vital signs: Vital Signs Temp 99.3 F 08/14/21 12:00 Pulse 67 08/14/21 13:15 Resp 36 H 08/14/21 13:15 BP 113/73 08/14/21 11:00 Pulse Ox 93 L 08/14/21 13:15 Intake & Output 08/13/21 08/14/21 08/14/21 18:59 06:59 18:59 Intake Total 5561.216 6045.067 1565.391 Output Total 835 680 450 Balance 820.464 251.520 3800.391 Weight 114.9 kg Intake: IV 406 301 218 Cefepime 2 gm In Sodium 150 25 100 Chloride 0.9% 100 ml @ 25 mls/hr IVPB Q8HR [facility] Rx# :[id number] Sodium Chloride 0.9% 1, 220 240 100 000 ml @ 20 mls/hr IV . Q24H [facility] Rx#:[id number] pressure bag 36 36 18 Intake, IV Titration 623.464 397.067 597.391 Amount Cisatracurium 200 mg In 200 Sodium Chloride 0.9% 180 ml @ 1 MCG/KG/MIN 6.24 mls/hr IV .Q24H [facility] Rx#: [id number] Norepinephrine 8 mg In 127.437 105.646 Sodium Chloride 0.9% 250 ml @ 0.05 MCG/KG/MIN 10. 739 mls/hr IV .Q24H [facility] Rx#:[id number] fentaNYL (PF). 1,000 mcg 196.027 197.067 197.413 In Sodium Chloride 0.9% 80 ml @ 0.5 MCG/KG/HR 5.2 mls/hr IV .[id number] [facility] Rx#:[id number] propofoL 1,000 mg In 300.00 200 94.332 Empty Bag 1 bag @ Titrate IV .Q0M [facility] Rx#: [id number] Tube Feeding 396 300 150 Other 230 400 600 Output: Urine 835 680 450 Other: Voiding Method Indwelling Catheter Indwelling Catheter Indwelling Catheter ABP, PAP, CO, CI - Last Documented Arterial Blood Pressure 102/57 - Exam Physical Exam revealed 65-year-old white male intubated and ventilated and se dated , on propofol and fentanyl however Nimbex was added today. Head: Atraumatic, normocephalic. Endotracheal tube and orogastric tube are intact. HEENT:[Neck is supple.] [No neck masses.] [No thyromegaly.] [No JVD.] Chest: [Crackles persist at the bases. Persist. Cardiac Exam: [Normal S1 and S2, no S3 gallop, no murmur.] Abdomen: [Soft, nontender, no megaly, no rebound, no guarding, normal bowel sounds.] Extremities: [No clubbing, trace of bipedal edema., no cyanosis.] Neurological Exam: Could not assess, patient is fully sedated Psychiatric: Could not be assessed patient is fully sedated - Labs CBC & Chem 7: 08/13/21 04:15 08/13/21 04:15 Labs: Abnormal Lab Results - Last 24 Hours (Table) 08/13/21 08/14/21 08/14/21 Range/Units 17:14 00:33 05:28 ABG pO2 73 L (83-108) mmHg POC Glucose (mg/dL) 227 H 154 H (75-99) mg/dL 08/14/21 08/14/21 Range/Units 11:57 12:09 ABG pO2 (83-108) mmHg POC Glucose (mg/dL) 127 H 122 H (75-99) mg/dL Microbiology - Last 24 Hours (Table) 08/08/21 11:00 Blood Culture - Final Blood No Growth after 144 hours 08/08/21 15:14 Blood Culture - Preliminary Blood No Growth after 120 hours Assessment and Plan Assessment: Impression: Acute hypoxic respiratory failure secondary to COVID-19 pneumonia, patient is not vaccinated. His symptoms started on 07/24/21, patient received monoclonal antibody infusion. Received Baricitinib on 07/28. Transferred to the ICU on 08/02 and intubated presently remains intubated sedated and mechanically ventilated sedated, and he had to be paralyzed on 08/14 mostly because of his worsening hypoxia. Suspect superimposed bacterial infection hence the patient is still on cefepime and Baricitinib has been discontinued. Cardiomyopathy and LV dysfunction, ejection fraction of 40-45%. Patient has chronic systolic congestive heart failure. Benign essential hypertension History of alcohol abuse, in remission History of PTSD History of underlying coronary artery disease Hypernatremia secondary to diuretics patient is receiving free water flushes. Sodium improved. Suspect ARDS secondary to COVID-19 pneumonia patient is still requiring high FiO2 and high PEEP Recommendation: Continue present ventilatory settings again he is on assist control rate of 36 total volume 450 FiO2 70% , PEEP 16 will restart the patient back on Nimbex today. Patient is demonstrating worsening oxygenation in spite of high FiO2 and high PEEP. Continue Nimbex fentanyl and propofol. Continue diuretics. Continue COVID-19 cocktail. Continue Lovenox and Decadron. Continue GI and DVT prophylaxis. Continue nutritional support./Enteral feeding. Continue empiric antibiotics. Patient is not ready for weaning. Remains critically ill prognosis is extremely poor. consider placing the patient in prone position again if no improvement in his oxygenation after paralytics. Critical care time is over 30 minutes. Time with Patient: Greater than 30
--- NOTE | 2021-08-14 13:50 | IR ---
PICC LINE PLACEMENT: HISTORY: Infection requiring long-term antibiotic therapy PROCEDURE: Ultrasound guidance of PICC line placement. COMPLICATIONS: None ANESTHESIA: 1. 1% Lidocaine locally. FINDINGS/TECHNIQUE: The procedure was explained to the patient. The risks, complications, benefits and alternatives were discussed and any questions were answered. Informed consent was obtained. The patient was placed supine on the fluoroscopic table and prepped and draped in the usual sterile fash ion. Utilizing a 21 gauge needle and sonographic guidance, access in the right basilic vein was ach ieved and there is placement of a 0.018 guidewire. The vein is patent. A 5-F. sheath was placed ove r the guidewire. The guidewire and dilator were removed and a 5-F. Double lumen PICC line was placed through the sheath with the chest x-ray confirming the tip at the level of the SVC. The sheath was removed, the catheter was flushed and sutured into position. The patient was stable throughout the p rocedure and remained stable upon discharge from the Department of Radiology. The vein puncture was patent under ultrasound. A panchal scale image was obtained to document patency of the vein punctured. All elements of the maximal barrier technique were utilized. IMPRESSION: 1. Successful PICC line placement under ultrasound performed bedside within the ICU.
[2021-08-14] MEDS: FUROSEMIDE 10 MG/ML 4 ML VIAL IV SCH ×2 (15:04→21:15)
[2021-08-14] MEDS: NOREPINEPHRINE 8 MG in SODIUM CHLORIDE 0.9% 250 ML IV SCH (15:14)
--- NOTE | 2021-08-14 18:03 | P.PN ---
Subjective Progress Note Date: 08/14/21 Principal diagnosis: Acute hypoxic respiratory failure secondary to COVID-19 pneumonia 64-year-old male patient presented emergency room on 07/28/2021 for shortness of breath and noted to have pulse oximetry of 84% in the emergency room. Patient had been feeling ill on the Friday before and was found to be Covid positive and then area and patient did receive the monoclonal antibody infusion and on Friday he was initiated on Decadron and colchicine due to obesity and history of smoking and chronic pain. Patient was eventually intubated days later transferred to the ICU he remains. Currently patient is on before meals of 36 had about 450 PEEP is 16, and on 60% FiO2. Patient was on Pneumovax that was stopped this morning around 10 AM he continues on fentanyl infusion, and propofol infusion. Patient is also covered with antibiotics of cefepime every 8 hours, as anticoagulated with subcu heparin. 6 recent set of vitals revealed blood pressure 91/54, pulse oxygenation is 93%, heart rate is 71 and respiratory and 36. Patient had a central line removed today with a PICC line placed and with a right radial arterial line. He is receiving tube feedings to goal 25 an hour through an OG tube 08/14/2021 patient remains in ICU, intubated with mechanical ventilation. Patient has been re-paralyzed twice a day Nimbex drip and sedated with propofol and fentanyl, vent settings are 36 PEEP is 16 FiO2 of 70%. This x-ray showed worsening infiltrates. Os recent set of vitals blood pressure 95/56, pulse rate is 71, he is afebrile at 99, maintaining 94% on 70% FiO2. Patient receiving tube feeding through OG tube and tolerating at this time. Objective - Vital Signs Vital signs: Vital Signs Temp 99 F 08/14/21 16:00 Pulse 71 08/14/21 17:00 Resp 36 H 08/14/21 17:00 BP 112/71 08/14/21 14:15 Pulse Ox 94 L 08/14/21 17:00 Intake & Output 08/13/21 08/14/21 08/14/21 18:59 06:59 18:59 Intake Total 4819.184 9692.067 2208.098 Output Total 912 471 4892 Balance 820.464 718.067 8.098 Weight 114.9 kg Intake: IV 406 301 333 Cefepime 2 gm In Sodium 150 25 100 Chloride 0.9% 100 ml @ 25 mls/hr IVPB Q8HR [facility] Rx# :[id number] Sodium Chloride 0.9% 1, 220 240 200 000 ml @ 20 mls/hr IV . Q24H [facility] Rx#:[id number] pressure bag 36 36 33 Intake, IV Titration 623.464 397.067 800.098 Amount Cisatracurium 200 mg In 200 Sodium Chloride 0.9% 180 ml @ 1 MCG/KG/MIN 6.24 mls/hr IV .Q24H [facility] Rx#: [id number] Norepinephrine 8 mg In 127.437 115.100 Sodium Chloride 0.9% 250 ml @ 0.05 MCG/KG/MIN 10. 739 mls/hr IV .Q24H [facility] Rx#:[id number] fentaNYL (PF). 1,000 mcg 196.027 197.067 290.666 In Sodium Chloride 0.9% 80 ml @ 0.5 MCG/KG/HR 5.2 mls/hr IV .[id number] [facility] Rx#:[id number] propofoL 1,000 mg In 300.00 200 194.332 Empty Bag 1 bag @ Titrate IV .Q0M [facility] Rx#: [id number] Tube Feeding 396 300 275 Other 230 400 800 Output: Urine 023 145 8928 Other: Voiding Method Indwelling Catheter Indwelling Catheter Indwelling Catheter ABP, PAP, CO, CI - Last Documented Arterial Blood Pressure 95/56 - Exam GENERAL: Patient is intubated, paralyzed and sedated. HEAD: Atraumatic, normocephalic. EYES: Pupils equal round and reactive to light, sclera anicteric, conjunctiva are normal. ENT: Moist mucous membranes. NECK: No lymphadenopathy or JVD, no thyromegaly LUNGS: Breath sounds clear to auscultation bilaterally and equal. No wheezes rales or rhonchi, mechanical ventilation sounds appreciated HEART: Regular rate and rhythm without murmurs.S1S2 Normal ABDOMEN: Soft, nontender, normoactive bowel sounds. No masses appreciated. EXTREMITIES: Waffle boots in place, no pitting or edema. No clubbing or cyanosis. NEUROLOGICAL: Sedated and tube, patient unable to follow commands. PSYCH: . SKIN: Warm, Dry, rashes, right nare DTI. Specialty mattress and place - Labs CBC & Chem 7: 08/13/21 04:15 08/13/21 04:15 Labs: Abnormal Lab Results - Last 24 Hours (Table) 08/14/21 08/14/21 08/14/21 Range/Units 00:33 05:28 11:57 ABG pO2 73 L (83-108) mmHg POC Glucose (mg/dL) 154 H 127 H (75-99) mg/dL 08/14/21 Range/Units 12:09 ABG pO2 (83-108) mmHg POC Glucose (mg/dL) 122 H (75-99) mg/dL Microbiology - Last 24 Hours (Table) 08/08/21 11:00 Blood Culture - Final Blood No Growth after 144 hours 08/08/21 15:14 Blood Culture - Preliminary Blood No Growth after 120 hours Assessment and Plan (1) ARDS (adult respiratory distress syndrome) Current Visit: Yes Status: Acute Code(s): J80 - ACUTE RESPIRATORY DISTRESS SYNDROME SNOMED Code(s): 93072732 (2) CAD (coronary artery disease) Current Visit: Yes Status: Acute Code(s): I25.10 - ATHSCL HEART DISEASE OF [place] CORONARY ARTERY W/O ANG PCTRS SNOMED Code(s): 18663991 (3) COVID-19 Current Visit: Yes Status: Acute Code(s): U07.1 - COVID-19 SNOMED Code(s): 088151211 (4) Chronic systolic (congestive) heart failure Current Visit: Yes Status: Acute Code(s): I50.22 - CHRONIC SYSTOLIC (CONGESTIVE) HEART FAILURE SNOMED Code(s): 984145269 (5) Essential (primary) hypertension Current Visit: Yes Status: Acute Code(s): I10 - ESSENTIAL (PRIMARY) HYPERTENSION SNOMED Code(s): 69225935 (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 Current Visit: Yes Status: Acute Code(s): Z79.891 - 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 OPIATE ANALGESIC SNOMED Code(s): 787232087 (7) Pneumonia due to COVID-19 virus Current Visit: Yes Status: Acute Code(s): U07.1 - COVID-19; J12.82 - PNEUMONIA DUE TO CORONAVIRUS DISEASE 2019 SNOMED Code(s): 091852277065094141 (8) Daily consumption of alcohol Current Visit: No Status: Acute Code(s): Z78.9 - OTHER SPECIFIED HEALTH STATUS SNOMED Code(s): 992443254 (9) Exertional dyspnea Current Visit: No Status: Acute Code(s): R06.00 - DYSPNEA, UNSPECIFIED SNOMED Code(s): 26122103 (10) Former smoker Current Visit: No Status: Acute Code(s): Z87.891 - PERSONAL HISTORY OF NICOTINE DEPENDENCE SNOMED Code(s): 2495641 (11) Shortness of breath at rest Current Visit: No Status: Acute Code(s): R06.02 - SHORTNESS OF BREATH SNOMED Code(s): 792679235 Plan: Continue current medication regimen Orders per critical care Empiric antibiotics (cefepime) We'll continue to follow labs and vitals and treat accordingly We'll reevaluate again in 24 hours Time with Patient: Greater than 30
[2021-08-14 18:23] LABS: Glucose,Whole Blood 198 mg/dL (75-99)
[2021-08-14] MEDS: ATORVASTATIN 40 MG TAB PO SCH (18:26)
[2021-08-14 23:49] LABS: Glucose,Whole Blood 156 mg/dL (75-99)
[2021-08-15] MEDS: INSULIN ASPART (NovoLOG) 100 UNIT/ML VIAL SQ SCH ×4 (00:04→17:33)
[2021-08-15] MEDS: ARTIFICIAL TEARS-HYPROMELLOSE DROPS 15 ML BTL BOTH EYES SCH ×6 (00:04→20:27)
[2021-08-15] MEDS: CEFEPIME 2 GM in SODIUM CHLORIDE 0.9% 100 ML IVPB SCH ×3 (00:04→15:08)
[2021-08-15] MEDS: fentaNYL (PF). 1,000 MCG in SODIUM CHLORIDE 0.9% 80 ML IV SCH ×5 (02:48→20:26)
[2021-08-15 06:26] LABS: ABG HCO3 30 mmol/L (21-25); ABG Oxygen Saturation 97.8 % (94-97); ABG PCO2 44 mmHg (35-45); ABG PH 7.44 (7.35-7.45); ABG PO2 101 mmHg (83-108); ABG TCO2 31 mmol/L (19-24)
[2021-08-15 06:28] LABS: Glucose,Whole Blood 118 mg/dL (75-99)
[2021-08-15 06:36] LABS: Allen Test Performed? no
[2021-08-15] MEDS: INSULIN DETEMIR (LEVEMIR) 100 UNIT/ML SYR SQ SCH (06:56)
[2021-08-15] MEDS: ALBUTEROL HFA INHALER INHALATION PRN ×3 (07:56→16:24)
[2021-08-15] MEDS: ENOXAPARIN 40 MG/0.4 ML SYRINGE SQ SCH ×2 (08:05→20:30)
[2021-08-15] MEDS: CHLORHEXIDINE GLUCONATE 15 ML CUP MUCOUS MEM SCH ×2 (08:05→20:30)
[2021-08-15] MEDS: PANTOPRAZOLE 40 MG/10 ML VIAL IVP SCH (08:05)
[2021-08-15] MEDS: ASPIRIN 81 MG PO SCH ×2 (08:05→20:30)
[2021-08-15] MEDS: ASCORBIC ACID 500 MG TAB PO SCH (08:06)
[2021-08-15] MEDS: ZINC SULFATE 220 MG CAP PO SCH (08:06)
[2021-08-15] MEDS: FUROSEMIDE 10 MG/ML 4 ML VIAL IV SCH ×2 (08:06→20:30)
[2021-08-15] MEDS: DEXAMETHASONE SOD PHOSPHATE 10 MG/ML 1 ML VIAL IVP SCH (08:06)
[2021-08-15] MEDS: CHOLECALCIFEROL 25 MCG (1000 IU) TABLET PO SCH (08:06)
[2021-08-15 08:49] LABS: HGB 9.9 gm/dL (13.0-17.5); Hypochromasia Slight; MCHC 31.8 g/dL (31.0-37.0); MCV 103.8 fL (80.0-100.0); Macrocytosis Slight; Mean Platelet Volume 8.8; Platelet Count 288 k/uL (150-450); RBC 2.99 m/uL (4.30-5.90); RDW 14.7 % (11.5-15.5); WBC 12.2 k/uL (3.8-10.6)
[2021-08-15 09:02] LABS: ALT 98 U/L (4-49); AST 54 U/L (17-59); African American GFR (CKD) >90 (>60 ml/min/1.73 sqM); Albumin 2.4 g/dL (3.5-5.0); Alkaline Phosphatase 90 U/L (38-126); Anion Gap 3 mmol/L; Blood Urea Nitrogen 26 mg/dL (9-20); Calcium 8.2 mg/dL (8.4-10.2); Carbon Dioxide 31 mmol/L (22-30); Chloride 110 mmol/L (98-107); Glucose 139 mg/dL (74-99); Non-African American GFR(CKD) >90 (>60 ml/min/1.73 sqM); Potassium 3.1 mmol/L (3.5-5.1); Sodium 144 mmol/L (137-145); Total Bilirubin 0.5 mg/dL (0.2-1.3); Total Protein 5.2 g/dL (6.3-8.2)
[2021-08-15] MEDS ORDERED: Potassium Replacement Protocol 1 EACH MISC MISCELLANE PRN (09:18)
[2021-08-15] MEDS: POTASSIUM BICARB-CITRIC ACID 25 MEQ TABLET.EFF PO SCH (09:47)
--- NOTE | 2021-08-15 11:18 | XR ---
EXAMINATION TYPE: XR chest 1V portable DATE OF EXAM: 08/15/2021 COMPARISON: 08/14/2021 HISTORY: Cough TECHNIQUE: Single frontal view of the chest is obtained. FINDINGS: ET tube, NG tube and PICC line stable. Diffuse bilateral predominantly interstitial infilt rates with basilar consolidation stable. No pneumothorax. Small left effusion noted. Suspect underlyi ng COPD. IMPRESSION: Stable diffuse bilateral infiltrates.
[2021-08-15 11:53] LABS: Glucose,Whole Blood 171 mg/dL (75-99)
[2021-08-15] MEDS: SODIUM CHLORIDE 0.9% 1,000 ML IV SCH (11:58)
--- NOTE | 2021-08-15 12:33 | US ---
EXAMINATION TYPE: US venous doppler duplex LE RT DATE OF EXAM: 08/15/2021 12:26 PM COMPARISON: 07/30/2021 CLINICAL HISTORY: rule out DVT. SIDE PERFORMED: Right TECHNIQUE: The lower extremity deep venous system is examined utilizing real time linear array sonog leann with graded compression, doppler sonography and color-flow sonography. VESSELS IMAGED: Common Femoral Vein Deep Femoral Vein Greater Saphenous Vein * Femoral Vein Popliteal Vein Small Saphenous Vein * Proximal Calf Veins (* superficial vessels) Right Leg: Negative for DVT IMPRESSION: No evidence for DVT.
[2021-08-15] MEDS: NOREPINEPHRINE 8 MG in SODIUM CHLORIDE 0.9% 250 ML IV SCH ×2 (14:09→15:08)
--- NOTE | 2021-08-15 14:49 | P.PN ---
Subjective Progress Note Date: 08/15/21 Principal diagnosis: Acute hypoxic respiratory failure secondary to COVID-19 pneumonia On 08/09/2021 patient is seen in follow-up in the intensive care unit, he remains intubated, sedated and paralyzed on assist-control mode of ventilation, with a rate of 36, tidal labs 450, FiO2 of 60% and PEEP of 18, this morning's blood gas was reviewed showing pO2 of 80, pCO2 of 50, and pH of 7.41, and this was done on FiO2 of 60%. Today's chest x-ray has been reviewed showing bilateral airspace disease, interstitial prominence, no evidence of pneumothorax subpleural effusion, endotracheal tube, NG tube, left subclavian central venous catheter are in appropriate positions. Patient is currently on Nimbex at 2 mics per kilo per minute, he is on Diprivan at 40 mics per kilo per minute, 0.9 at a rate of 75 ML per hour, fentanyl at 1.5 mics per kilo per minute. He is still requiring vasopressor support, and he is on norepinephrine at 0.12 mics per kilo per minute. Vasopressor requirements have remained stable over the last 24 hours, urine output is adequate, the order of 75-100 ML per hour. Patient is being treated for COVID-19 pneumonia with severe hypoxic respiratory failure. He continues on Decadron, Lasix has been discontinued, Baricitinib was placed on hold, she continues on cefepime for empiric antibiotic coverage. He is on prophylactic dose of Lovenox 40 mg daily Blood and sputum cultures have been reviewed, sputum culture only showed Haylee albicans. His labs have been reviewed, his white blood cell count is improving and is down to 14.5 on today's labs, hemoglobin is 12.3, pro-calcitonin level is 0.32 on today's labs, improved over last couple of days. Serum sodium is 148, potassium is 4.5, chloride is 112, CO2 is 32, BUN is 38, creatinine 0.65, his AST is 121 and ALT is 112, slightly improved, alk phos is remains within normal limits at 98, his i nflammatory markers are improving and LDH is down to 1032, and CRP is 18.4 on today's labs. Patient's serum sodium has increased, patient is receiving free water flushes with 200 mL every 6 hours, and he is tolerating his tube feedings of vital high-protein at a rate of 37 mL per hour. His urine output is adequate the order of 75-100 ML per hour, renal profile remains relatively stable, with BUN of 38, and creatinine is within normal limits at 0.65. Reevaluated today on 08/10/2021 patient remains in the ICU, intubated and mechanically ventilated. Patient is presently on assist control rate of 36 tidal volume 450 FiO2 60% PEEP was 18 and I cut it down to 16. Continues to have relatively elevated plateau pressure of 31. ABG showed a pO2 of 68 pCO2 49 pH of 7.42. Patient remains on multiple drips including propofol 40 norepinephrine 0.1 Nimbex at 1.5 and fentanyl at 1 mcg/kg per hour. Patient is on vital 1.2. W scan is 10.9 hemoglobin 11.5 electrolytes are normal BUN is normal creatinine is normal considering the sodium is high at 148 I recommended increasing free water via orogastric tube to 100 mL every 4 hours. Chest x-ray is showing slight improvement, nonetheless continues to show bilateral infiltrates consistent with severe case of COVID-19 pneumonia. Patient remains on the COVID-19 cocktail. Remains on cefepime empirically. Remains on Decadron 6 mg IV push daily, Lovenox 40 mg subcu daily Protonix 40 mg IV push daily and multivitamins. Reevaluated today on 08/11/21, patient remains in the ICU, intubated and mechanically ventilated. Presently on assist control rate of 36 tidal volume 450 FiO2 60% PEEP is at 16, ABG showed a pO2 of 65 pCO2 47 pH of 7.42, hence no changes were made in the ventilator settings today. Patient remains on Nimbex to microgram per kilo per minute norepinephrine 0.07 mcg/kg/m fentanyl at 1.5 mcg/kg/h and propofol 40 mcg/kg/m. Remains on enteral feeding. Chest x-ray continues show bilateral infiltrates consistent with COVID-19 pneumonia and the patient seems to have some component of ARDS. Continues to have relatively high plateau pressures. At least he got is 14 hemoglobin is 11. Sodium is high at 149 however his free water flushes were increased to 200 mL every 4 hours. LDH today is 1059. C-reactive protein is 5.4. Minimal improvement noted but nonetheless LDH seems to be trending down a bit. Reevaluated today on 08/12/21, patient remains intubated and mechanically ventilated in the ICU. He is on assist control rate of 36 tidal volume 450 FiO2 60% PEEP is 16 ABG showed a pO2 of 85 pCO2 46 pH of 7.42 hence I cut down his FiO2 to 55% and kept him on the same ventilator settings otherwise. Patient is on propofol at 50 mcg/kg/m norepinephrine 0.04 Nimbex at 3 mcg/kg/m and fentanyl at 1.5 mcg/kg/h. Patient is receiving enteral feeding vital AF at goal. His WBC is 14.7 hemoglobin is 10.7 otherwise the labs are basically unremarkable. Chest x-ray continues show bilateral infiltrates, slight improvement if any but definitely not getting any worse. Patient remains on the COVID-19 cocktail remains on cefepime. He is on Lovenox 40 mg subcu daily insulin Protonix 40 mg IV push daily and he is receiving zinc. Reevaluated today on 08/13/21, patient remains in the ICU, intubated and mechanically ventilated. He is on assist control rate 36, tidal volume 450 FiO2 65% PEEP is 16. ABG is marginal with a pO2 of 73 pCO2 of 49 pH of 7.39 his O2 saturation is marginal hence no changes were made on the ventilator settings. Kept him on a PEEP of 16, may consider tapering her FiO2 down to 60%. Patient remains on Nimbex at 4 propofol at 50 mcg/kg/m and fentanyl 20 mcg/kg/h. Asked x-ray is not showing much of a change, it is showing multifocal infiltrates and ARDS type picture. Patient continues to have relatively high peak airway pressure and plateau pressures. Electrolytes are normal renal profile is normal WBC count is 13.8 hemoglobin is 10.1. Remains on albuterol, ascorbic acid, as pirin, Lipitor, cefepime Peridex, vitamin D, Decadron 6 mg of the push daily, Lovenox 40 mg subcu daily, insulin, intermittently on norepinephrine, but presently is off norepinephrine. Protonix 40 mg IV push daily, and he is also on zinc daily. Reevaluated today on 08/14/21, patient remains in the ICU, intubated and mechanically ventilated. Remains on assist control rate of 36, FiO2 of 80% toda y a to the patient desaturated and her FiO2 had to be increased last night. He is on PEEP of 16, chest x-ray is showing slightly worsening bilateral infiltrates. Patient remains sedated but not paralyzed over the last 24 hours, however considering his worsening oxygenation I recommended that we go back on Nimbex in addition to propofol at 60 and fentanyl at 2 mcg/kg/h. Patient is hemodynamically stable, not requiring any pressors. ABG this morning on 80% showed a pO2 of 73 pCO2 of 35 pH of 7.42. Again his chest x-ray is showing a worsening picture of his bilateral infiltrates. WBC count today is 13.8 hemoglobin is 10.1. Basic metabolic profile is relatively normal. Patient remains on enteral feeding. Via orogastric tube. Remains on the same medications as listed above. And he is empirically on cefepime. Reevaluated today on 08/15/21, patient remains in the ICU, intubated and mechanically ventilated. Patient is on assist control rate of 36 tidal volume 450 FiO2 70% PEEP of 16 ABG showed a pO2 of 101 pCO2 44 pH of 7.44. Patient remains sedated and paralyzed, he is on Nimbex at 2 mcg/kg/m fentanyl 2 mcg/kg/h he is also on propofol at 50 mcg/kg/m, required norepinephrine at 0.06 mcg/kg/m he is on vital AF at 25 mL per hour. Not much of any improvement I have noticed in the last 5 days on this patient. His chest x-ray is basically about the same. His ventilatory status is basically about the same, attempted higher PEEP did not seem to improve much, attempted prone position today, and the patient actually became worse, he desaturated after few hours in a prone position, hence I had to place patient back in supine position. I believe the patient is demonstrating no improvement whatsoever, and his chest x-ray is also showing lateral infiltrates, and suspect significant component of ARDS, continues to have high peak airway pressure and high plateau pressures. D-dimer today is up to 3.86, and recommended increasing Lovenox to 40 mg subcu twice a day. His WBC count is 12.2 hemoglobin is 9.9 electrolytes showed low potassium of 3.1, renal profile is normal. Objective - Vital Signs Vital signs: Vital Signs Temp 98.7 F 08/15/21 12:00 Pulse 71 08/15/21 14:00 Resp 36 H 08/15/21 14:00 BP 109/65 08/15/21 08:00 Pulse Ox 88 L 08/15/21 14:00 Intake & Output 08/14/21 08/15/21 08/15/21 18:59 06:59 18:59 Intake Total 2356.098 972.72 1156.561 Output Total 2300 3420 2165 Balance 56.098 -2447.28 -1008.439 Weight 114.9 kg Intake: IV 356 276 264 Cefepime 2 gm In Sodium 100 100 Chloride 0.9% 100 ml @ 25 mls/hr IVPB Q8HR [facility] Rx# :[id number] Sodium Chloride 0.9% 1, 220 240 140 000 ml @ 20 mls/hr IV . Q24H [facility] Rx#:[id number] pressure bag 36 36 24 Intake, IV Titration 900.098 396.72 632.561 Amount Cisatracurium 200 mg In 200 127.504 Sodium Chloride 0.9% 180 ml @ 1 MCG/KG/MIN 6.24 mls/hr IV .Q24H [facility] Rx#: [id number] Norepinephrine 8 mg In 115.100 224.444 Sodium Chloride 0.9% 250 ml @ 0.05 MCG/KG/MIN 10. 739 mls/hr IV .Q24H [facility] Rx#:[id number] fentaNYL (PF). 1,000 mcg 290.666 196.72 180.613 In Sodium Chloride 0.9% 80 ml @ 0.5 MCG/KG/HR 5.2 mls/hr IV .[id number] [facility] Rx#:[id number] propofoL 1,000 mg In 294.332 200 100 Empty Bag 1 bag @ Titrate IV .Q0M [facility] Rx#: [id number] Tube Feeding 300 300 200 Other 800 60 Output: Urine 2300 3420 2165 Other: Voiding Method Indwelling Catheter Indwelling Catheter Indwelling Catheter ABP, PAP, CO, CI - Last Documented Arterial Blood Pressure 111/62 - Exam Physical Exam revealed 65-year-old white male intubated and ventilated and sedated , and Nimbex propofol and fentanyl. Head: Atraumatic, normocephalic. Endotracheal tube and orogastric tube are inta ct. HEENT:[Neck is supple.] [No neck masses.] [No thyromegaly.] [No JVD.] Chest: [Crackles persist at the bases. Persist. Cardiac Exam: [Normal S1 and S2, no S3 gallop, no murmur.] Abdomen: [Soft, nontender, no megaly, no rebound, no guarding, normal bowel sounds.] Extremities: [No clubbing, trace of bipedal edema., no cyanosis.] Neurological Exam: Could not assess, patient is fully sedated Psychiatric: Could not be assessed patient is fully sedated - Labs CBC & Chem 7: 08/15/21 08:35 08/15/21 11:52 Labs: Abnormal Lab Results - Last 24 Hours (Table) 08/14/21 08/14/21 08/15/21 Range/Units 18:21 23:47 05:41 WBC (3.8-10.6) k/uL RBC (4.30-5.90) m/uL Hgb (13.0-17.5) gm/dL Hct (39.0-53.0) % MCV (80.0-100.0) fL D-Dimer (<0.60) mg/L FEU ABG HCO3 30 H (21-25) mmol/L ABG Total CO2 31 H (19-24) mmol/L ABG O2 Saturation 97.8 H (94-97) % Potassium (3.5-5.1) mmol/L Chloride (98-107) mmol/L Carbon Dioxide (22-30) mmol/L BUN (9-20) mg/dL Creatinine (0.66-1.25) mg/dL Glucose (74-99) mg/dL POC Glucose (mg/dL) 198 H 156 H (75-99) mg/dL Calcium (8.4-10.2) mg/dL ALT (4-49) U/L Total Protein (6.3-8.2) g/dL Albumin (3.5-5.0) g/dL 08/15/21 08/15/21 08/15/21 Range/Units 06:26 08:35 08:35 WBC 12.2 H (3.8-10.6) k/uL RBC 2.99 L (4.30-5.90) m/uL Hgb 9.9 L (13.0-17.5) gm/dL Hct 31.0 L (39.0-53.0) % MCV 103.8 H (80.0-100.0) fL D-Dimer (<0.60) mg/L FEU ABG HCO3 (21-25) mmol/L ABG Total CO2 (19-24) mmol/L ABG O2 Saturation (94-97) % Potassium 3.1 L (3.5-5.1) mmol/L Chloride 110 H (98-107) mmol/L Carbon Dioxide 31 H (22-30) mmol/L BUN 26 H (9-20) mg/dL Creatinine 0.64 L (0.66-1.25) mg/dL Glucose 139 H (74-99) mg/dL POC Glucose (mg/dL) 118 H (75-99) mg/dL Calcium 8.2 L (8.4-10.2) mg/dL ALT 98 H (4-49) U/L Total Protein 5.2 L (6.3-8.2) g/dL Albumin 2.4 L (3.5-5.0) g/dL 08/15/21 08/15/21 Range/Units 11:51 11:52 WBC (3.8-10.6) k/uL RBC (4.30-5.90) m/uL Hgb (13.0-17.5) gm/dL Hct (39.0-53.0) % MCV (80.0-100.0) fL D-Dimer 3.86 H (<0.60) mg/L FEU ABG HCO3 (21-25) mmol/L ABG Total CO2 (19-24) mmol/L ABG O2 Saturation (94-97) % Potassium (3.5-5.1) mmol/L Chloride (98-107) mmol/L Carbon Dioxide (22-30) mmol/L BUN (9-20) mg/dL Creatinine (0.66-1.25) mg/dL Glucose (74-99) mg/dL POC Glucose (mg/dL) 171 H (75-99) mg/dL Calcium (8.4-10.2) mg/dL ALT (4-49) U/L Total Protein (6.3-8.2) g/dL Albumin (3.5-5.0) g/dL Microbiology - Last 24 Hours (Table) 08/08/21 15:14 Blood Culture - Final Blood No Growth after 144 hours 08/08/21 11:00 Blood Culture - Final Blood No Growth after 144 hours Assessment and Plan Assessment: Impression: Acute hypoxic respiratory failure secondary to COVID-19 pneumonia, patient is not vaccinated. His symptoms started on 07/24/21, patient received monoclonal antibody infusion. Received Baricitinib on 07/28. Transferred to the ICU on 08/02 and intubated presently remains intubated sedated and mechanically ventilated sedated, and he had to be paralyzed on 08/14 mostly because of his w orsening hypoxia. Suspect superimposed bacterial infection hence the patient is still on cefepime and Baricitinib has been discontinued. Cardiomyopathy and LV dysfunction, ejection fraction of 40-45%. Patient has chronic systolic congestive heart failure. Benign essential hypertension History of alcohol abuse, in remission History of PTSD History of underlying coronary artery disease Hypernatremia secondary to diuretics patient is receiving free water flushes. Sodium improved. Suspect ARDS secondary to COVID-19 pneumonia patient is still requiring high FiO2 and high PEEP Recommendation: Continue present ventilatory settings , and titrate FiO2 and PEEP accordingly not much luck noted remains on FiO2 of 70% and PEEP of 16. Hence I'm recommending prone position but later on the prone position was not also helping as a matter of fact was making the O2 saturation worse and we had to place him back in supine position. Continue Nimbex fentanyl and propofol. Continue diuretics. Continue COVID-19 cocktail. Continue Lovenox and Decadron. Increased Lovenox 40 mg subcu twice a day, slight rise noted in d-dimer today. Continue GI and DVT prophylaxis. Continue nutritional support./Enteral feeding. Continue empiric antibiotics. Patient is not ready for weaning. Remains critically ill prognosis is extremely poor. Critical care time is over 30 minutes. Time with Patient: Greater than 30
[2021-08-15 17:28] LABS: Glucose,Whole Blood 176 mg/dL (75-99)
[2021-08-15] MEDS: ATORVASTATIN 40 MG TAB PO SCH (17:33)
--- NOTE | 2021-08-15 18:10 | P.PN ---
Subjective Progress Note Date: 08/15/21 Principal diagnosis: Acute hypoxic respiratory failure secondary to COVID-19 pneumonia 64-year-old male patient presented emergency room on 07/28/2021 for shortness of breath and noted to have pulse oximetry of 84% in the emergency room. Patient had been feeling ill on the Friday before and was found to be Covid positive and then area and patient did receive the monoclonal antibody infusion and on Friday he was initiated on Decadron and colchicine due to obesity and history of smoking and chronic pain. Patient was eventually intubated days later transferred to the ICU he remains. Currently patient is on before meals of 36 had about 450 PEEP is 16, and on 60% FiO2. Patient was on Pneumovax that was stopped this morning around 10 AM he continues on fentanyl infusion, and propofol infusion. Patient is also covered with antibiotics of cefepime every 8 hours, as anticoagulated with subcu heparin. 6 recent set of vitals revealed blood pressure 91/54, pulse oxygenation is 93%, heart rate is 71 and respiratory and 36. Patient had a central line removed today with a PICC line placed and with a right radial arterial line. He is receiving tube feedings to goal 25 an hour through an OG tube 08/14/2021 patient remains in ICU, intubated with mechanical ventilation. Patient has been re-paralyzed twice a day Nimbex drip and sedated with propofol and fentanyl, vent settings are 36 PEEP is 16 FiO2 of 70%. This x-ray showed worsening infiltrates. Os recent set of vitals blood pressure 95/56, pulse rate is 71, he is afebrile at 99, maintaining 94% on 70% FiO2. Patient receiving tube feeding through OG tube and tolerating at this time. 08/15/2021 patient remains in ICU, intubated and on mechanical ventilation. Patient continues to be sedated and paralyzed with propofol, Nimbex, and fentanyl. Current vent settings are assist control 450 rate of 36, PEEP of 16, FiO2 of 80%. Patient apparently has worsened and norepinephrine is been added to maintain blood pressure and is currently at 0.05 mcg. Patient has AF tube feeding going through OG tube and appears to be tolerating well at this time. Pickett catheter is in place draining clear yellow urine. Patient is unresponsive as he is paralyzed and sedated. Objective - Vital Signs Vital signs: Vital Signs Temp 98.9 F 08/15/21 16:00 Pulse 67 08/15/21 17:15 Resp 37 H 08/15/21 17:15 BP 109/65 08/15/21 08:00 Pulse Ox 95 08/15/21 17:15 Intake & Output 08/14/21 08/15/21 08/15/21 18:59 06:59 18:59 Intake Total 2356.098 972.72 1322.153 Output Total 2300 3420 2315 Balance 56.098 -2447.28 -992.847 Weight 114.9 kg Intake: IV 356 276 310 Cefepime 2 gm In Sodium 100 100 Chloride 0.9% 100 ml @ 25 mls/hr IVPB Q8HR [facility] Rx# :[id number] Sodium Chloride 0.9% 1, 220 240 180 000 ml @ 20 mls/hr IV . Q24H [facility] Rx#:[id number] pressure bag 36 36 30 Intake, IV Titration 900.098 396.72 721.153 Amount Cisatracurium 200 mg In 200 127.504 Sodium Chloride 0.9% 180 ml @ 1 MCG/KG/MIN 6.24 mls/hr IV .Q24H [facility] Rx#: [id number] Norepinephrine 8 mg In 115.100 237.116 Sodium Chloride 0.9% 250 ml @ 0.05 MCG/KG/MIN 10. 739 mls/hr IV .Q24H [facility] Rx#:[id number] fentaNYL (PF). 1,000 mcg 290.666 196.72 256.533 In Sodium Chloride 0.9% 80 ml @ 0.5 MCG/KG/HR 5.2 mls/hr IV .[id number] [facility] Rx#:[id number] propofoL 1,000 mg In 294.332 200 100 Empty Bag 1 bag @ Titrate IV .Q0M [facility] Rx#: [id number] Tube Feeding 300 300 231 Other 800 60 Output: Urine 2300 3420 2315 Other: Voiding Method Indwelling Catheter Indwelling Catheter Indwelling Catheter ABP, PAP, CO, CI - Last Documented Arterial Blood Pressure 102/57 - Exam GENERAL: Patient is intubated, paralyzed and sedated. HEAD: Atraumatic, normocephalic. EYES: Pupils equal round and reactive to light, sclera anicteric, conjunctiva are normal. ENT: Moist mucous membranes. NECK: No lymphadenopathy or JVD, no thyromegaly LUNGS: Breath sounds clear to auscultation bilaterally and equal. No wheezes rales or rhonchi, mechanical ventilation sounds appreciated HEART: Regular rate and rhythm without murmurs.S1S2 Normal ABDOMEN: Soft, nontender, normoactive bowel sounds. No masses appreciated. EXTREMITIES: Waffle boots in place, no pitting or edema. No clubbing or cyanosis. NEUROLOGICAL: Sedated and tube, patient unable to follow commands. PSYCH: . SKIN: Warm, Dry, rashes, right nare DTI. Specialty mattress and place - Labs CBC & Chem 7: 08/15/21 08:35 08/15/21 11:52 Labs: Abnormal Lab Results - Last 24 Hours (Table) 08/14/21 08/14/21 08/15/21 Range/Units 18:21 23:47 05:41 WBC (3.8-10.6) k/uL RBC (4.30-5.90) m/uL Hgb (13.0-17.5) gm/dL Hct (39.0-53.0) % MCV (80.0-100.0) fL D-Dimer (<0.60) mg/L FEU ABG HCO3 30 H (21-25) mmol/L ABG Total CO2 31 H (19-24) mmol/L ABG O2 Saturation 97.8 H (94-97) % Potassium (3.5-5.1) mmol/L Chloride (98-107) mmol/L Carbon Dioxide (22-30) mmol/L BUN (9-20) mg/dL Creatinine (0.66-1.25) mg/dL Glucose (74-99) mg/dL POC Glucose (mg/dL) 198 H 156 H (75-99) mg/dL Calcium (8.4-10.2) mg/dL ALT (4-49) U/L Total Protein (6.3-8.2) g/dL Albumin (3.5-5.0) g/dL 08/15/21 08/15/21 08/15/21 Range/Units 06:26 08:35 08:35 WBC 12.2 H (3.8-10.6) k/uL RBC 2.99 L (4.30-5.90) m/uL Hgb 9.9 L (13.0-17.5) gm/dL Hct 31.0 L (39.0-53.0) % MCV 103.8 H (80.0-100.0) fL D-Dimer (<0.60) mg/L FEU ABG HCO3 (21-25) mmol/L ABG Total CO2 (19-24) mmol/L ABG O2 Saturation (94-97) % Potassium 3.1 L (3.5-5.1) mmol/L Chloride 110 H (98-107) mmol/L Carbon Dioxide 31 H (22-30) mmol/L BUN 26 H (9-20) mg/dL Creatinine 0.64 L (0.66-1.25) mg/dL Glucose 139 H (74-99) mg/dL POC Glucose (mg/dL) 118 H (75-99) mg/dL Calcium 8.2 L (8.4-10.2) mg/dL ALT 98 H (4-49) U/L Total Protein 5.2 L (6.3-8.2) g/dL Albumin 2.4 L (3.5-5.0) g/dL 08/15/21 08/15/21 08/15/21 Range/Units 11:51 11:52 17:26 WBC (3.8-10.6) k/uL RBC (4.30-5.90) m/uL Hgb (13.0-17.5) gm/dL Hct (39.0-53.0) % MCV (80.0-100.0) fL D-Dimer 3.86 H (<0.60) mg/L FEU ABG HCO3 (21-25) mmol/L ABG Total CO2 (19-24) mmol/L ABG O2 Saturation (94-97) % Potassium (3.5-5.1) mmol/L Chloride (98-107) mmol/L Carbon Dioxide (22-30) mmol/L BUN (9-20) mg/dL Creatinine (0.66-1.25) mg/dL Glucose (74-99) mg/dL POC Glucose (mg/dL) 171 H 176 H (75-99) mg/dL Calcium (8.4-10.2) mg/dL ALT (4-49) U/L Total Protein (6.3-8.2) g/dL Albumin (3.5-5.0) g/dL Microbiology - Last 24 Hours (Table) 08/08/21 15:14 Blood Culture - Final Blood No Growth after 144 hours 08/08/21 11:00 Blood Culture - Final Blood No Growth after 144 hours Assessment and Plan (1) ARDS (adult respiratory distress syndrome) Current Visit: Yes Status: Acute Code(s): J80 - ACUTE RESPIRATORY DISTRESS SYNDROME SNOMED Code(s): 90341614 (2) CAD (coronary artery disease) Current Visit: Yes Status: Acute Code(s): I25.10 - ATHSCL HEART DISEASE OF [place] CORONARY ARTERY W/O ANG PCTRS SNOMED Code(s): 60257175 (3) COVID-19 Current Visit: Yes Status: Acute Code(s): U07.1 - COVID-19 SNOMED Code(s): 481025336 (4) Chronic systolic (congestive) heart failure Current Visit: Yes Status: Acute Code(s): I50.22 - CHRONIC SYSTOLIC (CONGESTIVE) HEART FAILURE SNOMED Code(s): 339641864 (5) Essential (primary) hypertension Current Visit: Yes Status: Acute Code(s): I10 - ESSENTIAL (PRIMARY) HYPERTENSION SNOMED Code(s): 70078098 (6) shelter (current) use of opiate analgesic Current Visit: Yes Status: Acute Code(s): Z79.891 - PSYCHIATRIC TECHNICIAN ASSISTANT (CURRENT) USE OF OPIATE ANALGESIC SNOMED Code(s): 499181258 (7) Pneumonia due to COVID-19 virus Current Visit: Yes Status: Acute Code(s): U07.1 - COVID-19; J12.82 - PNEUMONIA DUE TO CORONAVIRUS DISEASE 2019 SNOMED Code(s): 810669397293711440 (8) Daily consumption of alcohol Current Visit: No Status: Acute Code(s): Z78.9 - OTHER SPECIFIED HEALTH STATUS SNOMED Code(s): 726299111 (9) Exertional dyspnea Current Visit: No Status: Acute Code(s): R06.00 - DYSPNEA, UNSPECIFIED SNOMED Code(s): 43299791 (10) Former smoker Current Visit: No Status: Acute Code(s): Z87.891 - PERSONAL HISTORY OF NICOTINE DEPENDENCE SNOMED Code(s): 0197243 (11) Shortness of breath at rest Current Visit: No Status: Acute Code(s): R06.02 - SHORTNESS OF BREATH SNOMED Code(s): 878237502 Plan: Continue current medication regimen Orders per critical care Empiric antibiotics (cefepime) We'll continue to follow labs and vitals and treat accordingly We'll reevaluate again in 24 hours Time with Patient: Greater than 30
[2021-08-15] MEDS: CISATRACURIUM 200 MG in SODIUM CHLORIDE 0.9% 180 ML IV SCH (22:28)
[2021-08-15 23:42] LABS: Glucose,Whole Blood 134 mg/dL (75-99)
[2021-08-16] MEDS: ARTIFICIAL TEARS-HYPROMELLOSE DROPS 15 ML BTL BOTH EYES SCH ×6 (00:45→19:52)
[2021-08-16] MEDS: CEFEPIME 2 GM in SODIUM CHLORIDE 0.9% 100 ML IVPB SCH ×2 (00:45→09:03)
[2021-08-16] MEDS: INSULIN ASPART (NovoLOG) 100 UNIT/ML VIAL SQ SCH ×4 (00:46→17:17)
[2021-08-16] MEDS: fentaNYL (PF). 1,000 MCG in SODIUM CHLORIDE 0.9% 80 ML IV SCH ×4 (01:17→21:48)
[2021-08-16 05:00] LABS: HCT 30.6 % (39.0-53.0); HGB 9.9 gm/dL (13.0-17.5); Hypochromasia Slight; MCH 32.9 pg (25.0-35.0); MCHC 32.2 g/dL (31.0-37.0); MCV 102.4 fL (80.0-100.0); Macrocytosis Slight; Mean Platelet Volume 8.6; Platelet Count 325 k/uL (150-450); RBC 2.99 m/uL (4.30-5.90); RDW 14.9 % (11.5-15.5); WBC 11.2 k/uL (3.8-10.6)
[2021-08-16 05:14] LABS: African American GFR (CKD) >90 (>60 ml/min/1.73 sqM); Anion Gap 4 mmol/L; Blood Urea Nitrogen 27 mg/dL (9-20); Calcium 8.1 mg/dL (8.4-10.2); Carbon Dioxide 31 mmol/L (22-30); Chloride 107 mmol/L (98-107); Glucose 141 mg/dL (74-99); Non-African American GFR(CKD) >90 (>60 ml/min/1.73 sqM); Potassium 3.3 mmol/L (3.5-5.1); Sodium 142 mmol/L (137-145)
[2021-08-16 05:50] LABS: Glucose,Whole Blood 151 mg/dL (75-99)
[2021-08-16 06:08] LABS: ABG Base Excess 7.6 mmol/L; ABG HCO3 32 mmol/L (21-25); ABG Oxygen Saturation 93.6 % (94-97); ABG PCO2 46 mmHg (35-45); ABG PH 7.45 (7.35-7.45); ABG PO2 67 mmHg (83-108); ABG TCO2 33 mmol/L (19-24)
[2021-08-16 06:22] LABS: Allen Test Performed? no
[2021-08-16] MEDS: ENOXAPARIN 40 MG/0.4 ML SYRINGE SQ SCH (09:04)
[2021-08-16] MEDS: CHLORHEXIDINE GLUCONATE 15 ML CUP MUCOUS MEM SCH ×2 (09:35→19:52)
--- NOTE | 2021-08-16 09:35 | P.PN ---
Subjective Progress Note Date: 08/16/21 Acute hypoxic respiratory failure secondary to COVID-19 pneumonia On 08/09/2021 patient is seen in follow-up in the intensive care unit, he remains intubated, sedated and paralyzed on assist-control mode of ventilation, with a rate of 36, tidal labs 450, FiO2 of 60% and PEEP of 18, this morning's blood gas was reviewed showing pO2 of 80, pCO2 of 50, and pH of 7.41, and this was done on FiO2 of 60%. Today's chest x-ray has been reviewed showing bilateral airspace disease, interstitial prominence, no evidence of pneumothorax subpleural effusion, endotracheal tube, NG tube, left subclavian central venous catheter are in appropriate positions. Patient is currently on Nimbex at 2 mics per kilo per minute, he is on Diprivan at 40 mics per kilo per minute, 0.9 at a rate of 75 ML per hour, fentanyl at 1.5 mics per kilo per minute. He is still requiring vasopressor support, and he is on norepinephrine at 0.12 mics per kilo per minute. Vasopressor requirements have remained stable over the last 24 hours, urine output is adequate, the order of 75-100 ML per hour. Patient is being treated for COVID-19 pneumonia with severe hypoxic respiratory failure. He continues on Decadron, Lasix has been discontinued, Baricitinib was placed on hold, she continues on cefepime for empiric antibiotic coverage. He is on prophylactic dose of Lovenox 40 mg daily Blood and sputum cultures have been reviewed, sputum culture only showed Haylee albicans. His labs have been reviewed, his white blood cell count is improving and is down to 14.5 on today's labs, hemoglobin is 12.3, pro-calcitonin level is 0.32 on today's labs, improved over last couple of days. Serum sodium is 148, potassium is 4.5, chloride is 112, CO2 is 32, BUN is 38, creatinine 0.65, his AST is 121 and ALT is 112, slightly improved, alk phos is remains within normal limits at 98, his inflammatory markers are improving and LDH is down to 1032, and CRP is 18.4 on today's labs. Patient's serum sodium has increased, patient is receiving free water flushes with 200 mL every 6 hours, and he is tolerating his tube feedings of vital high-protein at a rate of 37 mL per hour. His urine output is adequate the order of 75-100 ML per hour, renal profile remains relatively stable, with BUN of 38, and creatinine is within normal limits at 0.65. Reevaluated today on 08/10/2021 patient remains in the ICU, intubated and mechanically ventilated. Patient is presently on assist control rate of 36 tidal volume 450 FiO2 60% PEEP was 18 and I cut it down to 16. Continues to have relatively elevated plateau pressure of 31. ABG showed a pO2 of 68 pCO2 49 pH of 7.42. Patient remains on multiple drips including propofol 40 norepinephr ine 0.1 Nimbex at 1.5 and fentanyl at 1 mcg/kg per hour. Patient is on vital 1.2. W scan is 10.9 hemoglobin 11.5 electrolytes are normal BUN is normal creatinine is normal considering the sodium is high at 148 I recommended increasing free water via orogastric tube to 100 mL every 4 hours. Chest x-ray is showing slight improvement, nonetheless continues to show bilateral infiltrates consistent with severe case of COVID-19 pneumonia. Patient remains on the COVID-19 cocktail. Remains on cefepime empirically. Remains on Decadron 6 mg IV push daily, Lovenox 40 mg subcu daily Protonix 40 mg IV push daily and multivitamins. Reevaluated today on 08/11/21, patient remains in the ICU, intubated and mechanically ventilated. Presently on assist control rate of 36 tidal volume 450 FiO2 60% PEEP is at 16, ABG showed a pO2 of 65 pCO2 47 pH of 7.42, hence no changes were made in the ventilator settings today. Patient remains on Nimbex to microgram per kilo per minute norepinephrine 0.07 mcg/kg/m fentanyl at 1.5 mcg/kg/h and propofol 40 mcg/kg/m. Remains on enteral feeding. Chest x-ray co ntinues show bilateral infiltrates consistent with COVID-19 pneumonia and the patient seems to have some component of ARDS. Continues to have relatively high plateau pressures. At least he got is 14 hemoglobin is 11. Sodium is high at 149 however his free water flushes were increased to 200 mL every 4 hours. LDH today is 1059. C-reactive protein is 5.4. Minimal improvement noted but nonetheless LDH seems to be trending down a bit. Reevaluated today on 08/12/21, patient remains intubated and mechanically ventilated in the ICU. He is on assist control rate of 36 tidal volume 450 FiO2 60% PEEP is 16 ABG showed a pO2 of 85 pCO2 46 pH of 7.42 hence I cut down his FiO2 to 55% and kept him on the same ventilator settings otherwise. Patient is on propofol at 50 mcg/kg/m norepinephrine 0.04 Nimbex at 3 mcg/kg/m and fentanyl at 1.5 mcg/kg/h. Patient is receiving enteral feeding vital AF at goal. His WBC is 14.7 hemoglobin is 10.7 otherwise the labs are basically unremarkable. Chest x-ray continues show bilateral infiltrates, slight improvement if any but definitely not getting any worse. Patient remains on the COVID-19 cocktail remains on cefepime. He is on Lovenox 40 mg subcu daily insulin Protonix 40 mg IV push daily and he is receiving zinc. Reevaluated today on 08/13/21, patient remains in the ICU, intubated and mechanically ventilated. He is on assist control rate 36, tidal volume 450 FiO2 65% PEEP is 16. ABG is marginal with a pO2 of 73 pCO2 of 49 pH of 7.39 his O2 saturation is marginal hence no changes were made on the ventilator settings. Kept him on a PEEP of 16, may consider tapering her FiO2 down to 60%. Patient remains on Nimbex at 4 propofol at 50 mcg/kg/m and fentanyl 20 mcg/kg/h. Asked x-ray is not showing much of a change, it is showing multifocal infiltrates and ARDS type picture. Patient continues to have relatively high peak airway press ure and plateau pressures. Electrolytes are normal renal profile is normal WBC count is 13.8 hemoglobin is 10.1. Remains on albuterol, ascorbic acid, aspirin, Lipitor, cefepime Peridex, vitamin D, Decadron 6 mg of the push daily, Lovenox 40 mg subcu daily, insulin, intermittently on norepinephrine, but presently is off norepinephrine. Protonix 40 mg IV push daily, and he is also on zinc daily. Reevaluated today on 08/14/21, patient remains in the ICU, intubated and mechanically ventilated. Remains on assist control rate of 36, FiO2 of 80% today a to the patient desaturated and her FiO2 had to be increased last night. He is on PEEP of 16, chest x-ray is showing slightly worsening bilateral infiltrates. Patient remains sedated but not paralyzed over the last 24 hours, however considering his worsening oxygenation I recommended that we go back on Nimbex in addition to propofol at 60 and fentanyl at 2 mcg/kg/h. Patient is hemodynamically stable, not requiring any pressors. ABG this morning on 80% showed a pO2 of 73 pCO2 of 35 pH of 7.42. Again his chest x-ray is showing a worsening picture of his bilateral infiltrates. WBC count today is 13.8 hemoglobin is 10.1. Basic metabolic profile is relatively normal. Patient remains on enteral feeding. Via orogastric tube. Remains on the same medications as listed above. And he is empirically on cefepime. Reevaluated today on 08/15/21, patient remains in the ICU, intubated and mechanically ventilated. Patient is on assist control rate of 36 tidal volume 450 FiO2 70% PEEP of 16 ABG showed a pO2 of 101 pCO2 44 pH of 7.44. Patient remains sedated and paralyzed, he is on Nimbex at 2 mcg/kg/m fentanyl 2 mcg/kg/h he is also on propofol at 50 mcg/kg/m, required norepinephrine at 0.06 mcg/kg/m he is on vital AF at 25 mL per hour. Not much of any improvement I have noticed in the last 5 days on this patient. His chest x-ray is basically about the same. His ventilatory status is basically about the same, attempted higher PEEP did not seem to improve much, attempted prone position today, and the patient actually became worse, he desaturated after few hours in a prone position, hence I had to place patient back in supine position. I believe the patient is demonstrating no improvement whatsoever, and his chest x-ray is also showing lateral infiltrates, and suspect significant component of ARDS, continues to have high peak airway pressure and high plateau pressures. D-dimer today is up to 3.86, and recommended increasing Lovenox to 40 mg subcu twice a day. His WBC count is 12.2 hemoglobin is 9.9 electrolytes showed low potassium of 3.1, renal profile is normal. 08/16/2021, the patient remains intubated on a mechanical ventilator. On today's evaluation, the patient is sedated with propofol which is running at 50 mcg/kg per minute and the patient is also on fentanyl at 2 mcg/kg/h and index is at 2 mcg/kg per minute. He is adequately sedated and paralyzed. He remains interested mechanical ventilator at the rate of 36 with a tidal volume of 450 and FiO2 of 70% with a PEEP of 16. The chest x-ray from today is showing diffuse bilateral pulmonary infiltrates lot of nodularity in the upper lobes bi laterally more so on the right ET tube is in a good location and the patient has an orogastric tube in place and the PICC line in the right upper extremity. No other significant changes are seen compared to yesterday's chest film. The blood gases from today showing a pH of 7.45 with a pCO2 of 46 and pO2 of 67. Inflammatory markers on this patient have not been checked recently. Nevertheless, the most recent evaluations showed an LDH level of 1014 from 08/12/2021 and the CRP level was 4.3. He is afebrile. Hemodynamically, he is still requiring low-dose pressors and the patient is on norepinephrine infusion running at 0.06 mcg/kg per minute. IV fluids are running at the rate of 20 disease and hour and overall fluid balance on this patient has been -1.5 L for today and -2.3 L 4 yesterday. The patient is receiving IV Lasix 40 mg to 12 hours. The patient's pro calcitonin level was at 0.32. He is on no antibiotic coverage. Cultures have been essentially negative with exception of Haylee albicans in the sputum. The patient remains on Decadron and the patient has been on IV cefepime since 08/03/2021. Enterofeeding is to or GE and the patient is receiving vital AF at the rate of 31 mL an hour. In terms of the rest of the blood work, the patient has normal electrolytes, potassium level is at 3.1, BUN is 26 with a creatinine of 0.6, electrolytes are all within normal limits. The patient remains on Decadron 6 mg daily 24 hours. The patient is also on Lovenox 40 mg subcu every 24 hours. The d-dimer from 08/15/2021 was 3.86. Doppler of the lower extremity done yesterday was negative for DVT. Objective - Vital Signs Vital signs: Vital Signs Temp 98.9 F 08/16/21 00:00 Pulse 77 08/16/21 07:00 Resp 36 H 08/16/21 07:00 BP 109/65 08/15/21 08:00 Pulse Ox 95 08/16/21 07:00 Intake & Output 08/15/21 08/16/21 08/16/21 18:59 06:59 18:59 Intake Total 9124.808 0374.778 54 Output Total 2415 1989 50 Balance -782.351 -761.222 4 Weight 114.9 kg 119.9 kg Intake: IV 356 276 23 Cefepime 2 gm In Sodium 100 Chloride 0.9% 100 ml @ 25 mls/hr IVPB Q8HR [facility] Rx# :[id number] Sodium Chloride 0.9% 1, 220 240 20 000 ml @ 20 mls/hr IV . Q24H [facility] Rx#:[id number] pressure bag 36 36 3 Intake, IV Titration 893.649 550.778 Amount Cisatracurium 200 mg In 200.000 Sodium Chloride 0.9% 180 ml @ 1 MCG/KG/MIN 6.24 mls/hr IV .Q24H [facility] Rx#: [id number] Norepinephrine 8 mg In 237.116 51.978 Sodium Chloride 0.9% 250 ml @ 0.05 MCG/KG/MIN 10. 739 mls/hr IV .Q24H [facility] Rx#:[id number] fentaNYL (PF). 1,000 mcg 256.533 298.8 In Sodium Chloride 0.9% 80 ml @ 0.5 MCG/KG/HR 5.2 mls/hr IV .[id number] [facility] Rx#:[id number] propofoL 1,000 mg In 200 200 Empty Bag 1 bag @ Titrate IV .Q0M [facility] Rx#: [id number] Tube Feeding 293 372 31 Other 90 30 Output: Urine 5 1989 Other: Voiding Method Indwelling Catheter Indwelling Catheter ABP, PAP, CO, CI - Last Documented Arterial Blood Pressure 149/73 - Exam Physical Exam revealed 65-year-old white male intubated and ventilated and sedated , and Nimbex propofol and fentanyl. Head: Atraumatic, normocephalic. Endotracheal tube and orogastric tube are intact. HEENT:[Neck is supple.] [No neck masses.] [No thyromegaly.] [No JVD.] Chest: [Crackles persist at the bases. Persist. Cardiac Exam: [Normal S1 and S2, no S3 gallop, no murmur.] Abdomen: [Soft, nontender, no megaly, no rebound, no guarding, normal bowel sounds.] Extremities: [No clubbing, trace of bipedal edema., no cyanosis.] Neurological Exam: Could not assess, patient is fully sedated Psychiatric: Could not be assessed patient is fully sedated - Labs CBC & Chem 7: 08/16/21 04:55 08/16/21 04:55 Labs: Abnormal Lab Results - Last 24 Hours (Table) 08/15/21 08/15/21 08/15/21 Range/Units 11:51 11:52 17:26 WBC (3.8-10.6) k/uL RBC (4.30-5.90) m/uL Hgb (13.0-17.5) gm/dL Hct (39.0-53.0) % MCV (80.0-100.0) fL D-Dimer 3.86 H (<0.60) mg/L FEU ABG pCO2 (35-45) mmHg ABG pO2 (83-108) mmHg ABG HCO3 (21-25) mmol/L ABG Total CO2 (19-24) mmol/L ABG O2 Saturation (94-97) % Potassium (3.5-5.1) mmol/L Carbon Dioxide (22-30) mmol/L BUN (9-20) mg/dL Creatinine (0.66-1.25) mg/dL Glucose (74-99) mg/dL POC Glucose (mg/dL) 171 H 176 H (75-99) mg/dL Calcium (8.4-10.2) mg/dL 08/15/21 08/16/21 08/16/21 Range/Units 23:40 04:55 04:55 WBC 11.2 H (3.8-10.6) k/uL RBC 2.99 L (4.30-5.90) m/uL Hgb 9.9 L (13.0-17.5) gm/dL Hct 30.6 L (39.0-53.0) % MCV 102.4 H (80.0-100.0) fL D-Dimer (<0.60) mg/L FEU ABG pCO2 (35-45) mmHg ABG pO2 (83-108) mmHg ABG HCO3 (21-25) mmol/L ABG Total CO2 (19-24) mmol/L ABG O2 Saturation (94-97) % Potassium 3.3 L (3.5-5.1) mmol/L Carbon Dioxide 31 H (22-30) mmol/L BUN 27 H (9-20) mg/dL Creatinine 0.63 L (0.66-1.25) mg/dL Glucose 141 H (74-99) mg/dL POC Glucose (mg/dL) 134 H (75-99) mg/dL Calcium 8.1 L (8.4-10.2) mg/dL 08/16/21 08/16/21 Range/Units 05:47 06:05 WBC (3.8-10.6) k/uL RBC (4.30-5.90) m/uL Hgb (13.0-17.5) gm/dL Hct (39.0-53.0) % MCV (80.0-100.0) fL D-Dimer (<0.60) mg/L FEU ABG pCO2 46 H (35-45) mmHg ABG pO2 67 L (83-108) mmHg ABG HCO3 32 H (21-25) mmol/L ABG Total CO2 33 H (19-24) mmol/L ABG O2 Saturation 93.6 L (94-97) % Potassium (3.5-5.1) mmol/L Carbon Dioxide (22-30) mmol/L BUN (9-20) mg/dL Creatinine (0.66-1.25) mg/dL Glucose (74-99) mg/dL POC Glucose (mg/dL) 151 H (75-99) mg/dL Calcium (8.4-10.2) mg/dL Assessment and Plan Plan: 1 Acute hypoxic respiratory failure secondary to COVID-19 pneumonia, patient is not vaccinated. His symptoms started on 07/24/21, patient received monoclonal antibody infusion. Received Baricitinib on 07/28. Transferred to the ICU on 08/02 and intubated presently remains intubated sedated and mechanically ventilated sedated, and he had to be paralyzed on 08/14 mostly because of his worsening hypoxia. On today's evaluation, the patient's chest x-ray shows stable bilateral pulmonary infiltrates. The patient is on a low dose of pressors. Chest x-ray was noted. Blood gases was noted. We'll do some ventilator changes and I'm hoping that we should be able to proceed with a tracheostomy tube and the PEG tube insertion on this patient for his ongoing care and prolonged respiratory failure. He remains on Decadron. IV antibiotics will be discontinued. He remains on Decadron. 2 Possible underlying bacterial infection, based on an elevated glucose to Levaquin and the patient is currently on IV cefepime, completed the course of IV cefepime and the cultures of been all negative and a sputum sample is showing Haylee albicans. 3 Cardiomyopathy and LV dysfunction, ejection fraction of 40-45%. Patient has chronic systolic congestive heart failure. 4 Benign essential hypertension 5 History of alcohol abuse, in remission 6 History of PTSD 7 History of underlying coronary artery disease 8 Hypernatremia secondary to diuretics patient is receiving free water flushes. Sodium improved. Plan Continue ventilator support, no changes to be done for today. The patient was found on multiple occasions and less phoning was done yesterday with failure and improvement in oxygenation. For now, the patient is a supine. I'm recommending drop in his respiratory rate down to 28, tidal volume down to 400 and dropping the FiO2 down to 60% and repeating his blood gases and noontime. I'm hoping to gradually wean down the PEEP and proceed with PEG and trach and for that reason general surgical consultation will be obtained. Continue Decadron Discontinue IV cefepime Continue Lovenox, 40 mg 4 hours and a Doppler of the lower extremity was repeated and the numbers were negative IVF to KVO Start the patient on Lasix 40 mg IV every 12 hours, the patient is able to get a negative fluid balance over the past 24 hours The patient implement a marker for tomorrow Enteral feeding for nutritional support Daily chest x-rays We'll continue to follow. Condition is obviously critical and poor outcome is anticipated or suspect in this patient based on his comorbidities. We'll continue to follow. Cardiac care evaluation, more than 30 minute Time with Patient: Greater than 30
[2021-08-16] MEDS: CHOLECALCIFEROL 25 MCG (1000 IU) TABLET PO SCH (09:36)
[2021-08-16] MEDS: INSULIN DETEMIR (LEVEMIR) 100 UNIT/ML SYR SQ SCH (09:36)
[2021-08-16] MEDS: PANTOPRAZOLE 40 MG/10 ML VIAL IVP SCH (09:36)
[2021-08-16] MEDS: ZINC SULFATE 220 MG CAP PO SCH (09:37)
[2021-08-16] MEDS: ASPIRIN 81 MG PO SCH ×2 (09:37→19:53)
[2021-08-16] MEDS: FUROSEMIDE 10 MG/ML 4 ML VIAL IV SCH (09:38)
[2021-08-16] MEDS: DEXAMETHASONE SOD PHOSPHATE 10 MG/ML 1 ML VIAL IVP SCH (09:38)
[2021-08-16] MEDS: ASCORBIC ACID 500 MG TAB PO SCH (09:39)
[2021-08-16] MEDS: POTASSIUM BICARBONATE/CIT AC 20 MEQ TABLET.EFF NG-TUBE SCH ×2 (09:39→13:01)
--- NOTE | 2021-08-16 12:19 | P.PN ---
Subjective Progress Note Date: 08/16/21 Principal diagnosis: Acute hypoxic respiratory failure secondary to COVID-19 pneumonia 64-year-old male patient presented emergency room on 07/28/2021 for shortness of breath and noted to have pulse oximetry of 84% in the emergency room. Patient had been feeling ill on the Friday before and was found to be Covid positive and then area and patient did receive the monoclonal antibody infusion and on Friday he was initiated on Decadron and colchicine due to obesity and history of smoking and chronic pain. Patient was eventually intubated days later transferred to the ICU he remains. Currently patient is on before meals of 36 had about 450 PEEP is 16, and on 60% FiO2. Patient was on Pneumovax that was stopped this morning around 10 AM he continues on fentanyl infusion, and propofol infusion. Patient is also covered with antibiotics of cefepime every 8 hours, as anticoagulated with subcu heparin. 6 recent set of vitals revealed blood pressure 91/54, pulse oxygenation is 93%, heart rate is 71 and respiratory and 36. Patient had a central line removed today with a PICC line placed and with a right radial arterial line. He is receiving tube feedings to goal 25 an hour through an OG tube 08/14/2021 patient remains in ICU, intubated with mechanical ventilation. Patient has been re-paralyzed twice a day Nimbex drip and sedated with propofol and fentanyl, vent settings are 36 PEEP is 16 FiO2 of 70%. This x-ray showed worsening infiltrates. Os recent set of vitals blood pressure 95/56, pulse rate is 71, he is afebrile at 99, maintaining 94% on 70% FiO2. Patient receiving tube feeding through OG tube and tolerating at this time. 08/15/2021 patient remains in ICU, intubated and on mechanical ventilation. Patient continues to be sedated and paralyzed with propofol, Nimbex, and fentanyl. Current vent settings are assist control 450 rate of 36, PEEP of 16, FiO2 of 80%. Patient apparently has worsened and norepinephrine is been added to maintain blood pressure and is currently at 0.05 mcg. Patient has AF tube feeding going through OG tube and appears to be tolerating well at this time. Pickett catheter is in place draining clear yellow urine. Patient is unresponsive as he is paralyzed and sedated. 08/16/2021 patient remains in ICU intubated and on mechanical ventilation. Patient needs to be sedated and paralyzed with propofol at 50 mics per kilo per minute, fentanyl 2 mics per kilo per minute, and Nimbex 2 mics per kilo per minute. Patient is also on levothyroid at 0.05 mics per kilo per minute to maintain adequate blood pressures. Current vent settings before meals of 36, Tenormin 450 60% FiO2 and 16 of PEEP. Patient has OG tube with AF feed and appears to be tolerating well at this time. Noted have a PICC in the right uppe r arm and a right radial arterial line and a Pickett catheter is draining clear yellow urine. Patient is on pantoprazole for GI prophylaxis and Lovenox for DVT prophylaxis. Most recent set of vital signs shows a blood pressure 149/73, respiratory rate of 36, pulse rate is 77, maintaining erection saturation 95%. Most recent set of vitals reveal a white blood cell count 11.2, hemoglobin 9.9, hematocrit 30.6, platelet count 325. Chemistry reveals sodium 147, potassium 3.3, BUN 27 and creatinine 0.63. Objective - Vital Signs Vital signs: Vital Signs Temp 98.9 F 08/16/21 00:00 Pulse 77 08/16/21 07:00 Resp 36 H 08/16/21 07:00 BP 109/65 08/15/21 08:00 Pulse Ox 95 08/16/21 07:00 Intake & Output 08/15/21 08/16/21 08/16/21 18:59 06:59 18:59 Intake Total 8214.550 9206.778 54 Output Total 2415 1990 50 Balance -782.351 -761.222 4 Weight 114.9 kg 119.9 kg Intake: IV 356 276 23 Cefepime 2 gm In Sodium 100 Chloride 0.9% 100 ml @ 25 mls/hr IVPB Q8HR [facility] Rx# :[id number] Sodium Chloride 0.9% 1, 220 240 20 000 ml @ 20 mls/hr IV . Q24H [facility] Rx#:[id number] pressure bag 36 36 3 Intake, IV Titration 893.649 550.778 Amount Cisatracurium 200 mg In 200.000 Sodium Chloride 0.9% 180 ml @ 1 MCG/KG/MIN 6.24 mls/hr IV .Q24H [facility] Rx#: [id number] Norepinephrine 8 mg In 237.116 51.978 Sodium Chloride 0.9% 250 ml @ 0.05 MCG/KG/MIN 10. 739 mls/hr IV .Q24H [facility] Rx#:[id number] fentaNYL (PF). 1,000 mcg 256.533 298.8 In Sodium Chloride 0.9% 80 ml @ 0.5 MCG/KG/HR 5.2 mls/hr IV .[id number] [facility] Rx#:[id number] propofoL 1,000 mg In 200 200 Empty Bag 1 bag @ Titrate IV .Q0M [facility] Rx#: [id number] Tube Feeding 293 372 31 Other 90 30 Output: Urine 2415 1990 50 Other: Voiding Method Indwelling Catheter Indwelling Catheter ABP, PAP, CO, CI - Last Documented Arterial Blood Pressure 149/73 - Exam GENERAL: Patient is intubated, paralyzed and sedated. HEAD: Atraumatic, normocephalic. EYES: Pupils equal round, sclera anicteric, conjunctiva are normal. ENT: Moist mucous membranes. NECK: No lymphadenopathy or JVD, no thyromegaly LUNGS: Breath sounds clear to auscultation bilaterally and equal. No wheezes rales or rhonchi, mechanical ventilation sounds appreciated HEART: Regular rate and rhythm without murmurs.S1S2 Normal ABDOMEN: Soft, nontender, normoactive bowel sounds. No masses appreciated. EXTREMITIES: Waffle boots in place, no pitting or edema. No clubbing or cyanosis. NEUROLOGICAL: Sedated and tube, patient unable to follow commands. PSYCH: . SKIN: Warm, Dry, rashes, right nare DTI. Specialty mattress and place - Labs CBC & Chem 7: 08/16/21 04:55 08/16/21 04:55 Labs: Abnormal Lab Results - Last 24 Hours (Table) 08/15/21 08/15/21 08/15/21 Range/Units 11:52 17:26 23:40 WBC (3.8-10.6) k/uL RBC (4.30-5.90) m/uL Hgb (13.0-17.5) gm/dL Hct (39.0-53.0) % MCV (80.0-100.0) fL D-Dimer 3.86 H (<0.60) mg/L FEU ABG pCO2 (35-45) mmHg ABG pO2 (83-108) mmHg ABG HCO3 (21-25) mmol/L ABG Total CO2 (19-24) mmol/L ABG O2 Saturation (94-97) % Potassium (3.5-5.1) mmol/L Carbon Dioxide (22-30) mmol/L BUN (9-20) mg/dL Creatinine (0.66-1.25) mg/dL Glucose (74-99) mg/dL POC Glucose (mg/dL) 176 H 134 H (75-99) mg/dL Calcium (8.4-10.2) mg/dL 08/16/21 08/16/21 08/16/21 Range/Units 04:55 04:55 05:47 WBC 11.2 H (3.8-10.6) k/uL RBC 2.99 L (4.30-5.90) m/uL Hgb 9.9 L (13.0-17.5) gm/dL Hct 30.6 L (39.0-53.0) % MCV 102.4 H (80.0-100.0) fL D-Dimer (<0.60) mg/L FEU ABG pCO2 (35-45) mmHg ABG pO2 (83-108) mmHg ABG HCO3 (21-25) mmol/L ABG Total CO2 (19-24) mmol/L ABG O2 Saturation (94-97) % Potassium 3.3 L (3.5-5.1) mmol/L Carbon Dioxide 31 H (22-30) mmol/L BUN 27 H (9-20) mg/dL Creatinine 0.63 L (0.66-1.25) mg/dL Glucose 141 H (74-99) mg/dL POC Glucose (mg/dL) 151 H (75-99) mg/dL Calcium 8.1 L (8.4-10.2) mg/dL 08/16/21 Range/Units 06:05 WBC (3.8-10.6) k/uL RBC (4.30-5.90) m/uL Hgb (13.0-17.5) gm/dL Hct (39.0-53.0) % MCV (80.0-100.0) fL D-Dimer (<0.60) mg/L FEU ABG pCO2 46 H (35-45) mmHg ABG pO2 67 L (83-108) mmHg ABG HCO3 32 H (21-25) mmol/L ABG Total CO2 33 H (19-24) mmol/L ABG O2 Saturation 93.6 L (94-97) % Potassium (3.5-5.1) mmol/L Carbon Dioxide (22-30) mmol/L BUN (9-20) mg/dL Creatinine (0.66-1.25) mg/dL Glucose (74-99) mg/dL POC Glucose (mg/dL) (75-99) mg/dL Calcium (8.4-10.2) mg/dL Assessment and Plan (1) ARDS (adult respiratory distress syndrome) Current Visit: Yes Status: Acute Code(s): J80 - ACUTE RESPIRATORY DISTRESS SYNDROME SNOMED Code(s): 33346683 (2) CAD (coronary artery disease) Current Visit: Yes Status: Acute Code(s): I25.10 - ATHSCL HEART DISEASE OF [place] CORONARY ARTERY W/O ANG PCTRS SNOMED Code(s): 38110493 (3) COVID-19 Current Visit: Yes Status: Acute Code(s): U07.1 - COVID-19 SNOMED Code(s): 107473710 (4) Chronic systolic (congestive) heart failure Current Visit: Yes Status: Acute Code(s): I50.22 - CHRONIC SYSTOLIC (CONGESTIVE) HEART FAILURE SNOMED Code(s): 670733973 (5) Essential (primary) hypertension Current Visit: Yes Status: Acute Code(s): I10 - ESSENTIAL (PRIMARY) HYPERTENSION SNOMED Code(s): 44091250 (6) USP (current) use of opiate analgesic Current Visit: Yes Status: Acute Code(s): Z79.891 - [employer]SEM[employer]ER [employer] TRAIN (CURRENT) USE OF OPIATE ANALGESIC SNOMED Code(s): 783588258 (7) Pneumonia due to COVID-19 virus Current Visit: Yes Status: Acute Code(s): U07.1 - COVID-19; J12.82 - PNEUMONIA DUE TO CORONAVIRUS DISEASE 2019 SNOMED Code(s): 807922515812627588 (8) Daily consumption of alcohol Current Visit: No Status: Acute Code(s): Z78.9 - OTHER SPECIFIED HEALTH STATUS SNOMED Code(s): 713955237 (9) Exertional dyspnea Current Visit: No Status: Acute Code(s): R06.00 - DYSPNEA, UNSPECIFIED SNOMED Code(s): 53407815 (10) Former smoker Current Visit: No Status: Acute Code(s): Z87.891 - PERSONAL HISTORY OF NICOTINE DEPENDENCE SNOMED Code(s): 8710770 (11) Shortness of breath at rest Current Visit: No Status: Acute Code(s): R06.02 - SHORTNESS OF BREATH SNOMED Code(s): 553663730 Plan: Continue current medication regimen Orders per critical care pantoprazole for GI prophylaxis Lovenox for DVT 4 prophylaxis We'll continue to follow labs and vitals and treat accordingly We'll reevaluate again in 24 hours Time with Patient: Greater than 30
[2021-08-16 12:37] LABS: Glucose,Whole Blood 168 mg/dL (75-99)
--- NOTE | 2021-08-16 12:53 | P.GSCN ---
History of Present Illness Consult date: 08/16/21 Reason for Consult: tracheostomy and PEG tube placement History of present illness: patient this had coded 19 pneumonia. He has had prolonged respiratory failure. I've asked him regarding PEG tube and tracheostomy placement. Past Medical History Past Medical History: Chest Pain / Angina, Heart Failure, Hyperlipidemia, Hypertension Additional Past Medical History / Comment(s): DJD chronic back pain, History of Any Multi-Drug Resistant Organisms: None Reported Past Surgical History: Cholecystectomy Additional Past Surgical History / Comment(s): knee surgery at the age of 21 Past Anesthesia/Blood Transfusion Reactions: No Reported Reaction Past Psychological History: Anxiety, PTSD Smoking Status: Never smoker Past Alcohol Use History: None Reported Additional Past Alcohol Use History / Comment(s): states has not had a beer since June 2020 Past Drug Use History: Marijuana Additional Drug Use History / Comment(s): current - Past Family History Brother(s) Family Medical History: Coronary Artery Disease (CAD) Additional Family Medical History / Comment(s): 2 boys with a CABG Mother Family Medical History: Myocardial Infarction ([place]) Additional Family Medical History / Comment(s): mom passed from a [place] Medications and Allergies Home Medications Medication Instructions Recorded Confirmed Type Aspirin EC [Ecotrin Low Dose] 81 mg PO BID 06/22/20 07/28/21 History Atorvastatin [Lipitor] 40 mg PO AC-SUPPER 06/22/20 07/28/21 History Cyclobenzaprine [Flexeril] 10 mg PO TID PRN 06/22/20 07/28/21 History HYDROcodone/APAP 10-325MG [[place] 1 tab PO Q8HR PRN 06/22/20 07/28/21 History 10-325] Carvedilol [Coreg] 12.5 mg PO AC-BID 11/05/20 07/28/21 History Furosemide [Lasix] 40 mg PO DAILY 11/05/20 07/28/21 History Losartan [Cozaar] 25 mg PO DAILY 11/05/20 07/28/21 History Potassium Chloride [Klor-Con 20] 20 meq PO DAILY 11/05/20 07/28/21 History Colchicine [Colcrys] 0.6 mg PO BID 07/28/21 07/28/21 History Dexamethasone 6 mg PO BID 07/28/21 07/28/21 History busPIRone HCL [Buspar] 7.5 mg PO BID 07/28/21 07/28/21 History Allergies Allergy/AdvReac Type Severity Reaction Status Date / Time No Known Allergies Allergy Verified 07/28/21 08:01 Surgical - Exam Vital Signs Temp Pulse Resp BP Pulse Ox 98.5 F 74 24 127/79 84 L 07/28/21 00:00 07/28/21 00:00 07/28/21 00:00 07/28/21 00:00 07/28/21 00:00 - General on ventilator no distress - Abdomen Abdomen: soft Results - Labs 08/16/21 04:55 08/16/21 04:55 Abnormal Lab Results - Last 24 Hours (Table) 08/15/21 08/15/21 08/16/21 Range/Units 17:26 23:40 04:55 WBC 11.2 H (3.8-10.6) k/uL RBC 2.99 L (4.30-5.90) m/uL Hgb 9.9 L (13.0-17.5) gm/dL Hct 30.6 L (39.0-53.0) % MCV 102.4 H (80.0-100.0) fL ABG pCO2 (35-45) mmHg ABG pO2 (83-108) mmHg ABG HCO3 (21-25) mmol/L ABG Total CO2 (19-24) mmol/L ABG O2 Saturation (94-97) % Potassium (3.5-5.1) mmol/L Carbon Dioxide (22-30) mmol/L BUN (9-20) mg/dL Creatinine (0.66-1.25) mg/dL Glucose (74-99) mg/dL POC Glucose (mg/dL) 176 H 134 H (75-99) mg/dL Calcium (8.4-10.2) mg/dL 08/16/21 08/16/21 08/16/21 Range/Units 04:55 05:47 06:05 WBC (3.8-10.6) k/uL RBC (4.30-5.90) m/uL Hgb (13.0-17.5) gm/dL Hct (39.0-53.0) % MCV (80.0-100.0) fL ABG pCO2 46 H (35-45) mmHg ABG pO2 67 L (83-108) mmHg ABG HCO3 32 H (21-25) mmol/L ABG Total CO2 33 H (19-24) mmol/L ABG O2 Saturation 93.6 L (94-97) % Potassium 3.3 L (3.5-5.1) mmol/L Carbon Dioxide 31 H (22-30) mmol/L BUN 27 H (9-20) mg/dL Creatinine 0.63 L (0.66-1.25) mg/dL Glucose 141 H (74-99) mg/dL POC Glucose (mg/dL) 151 H (75-99) mg/dL Calcium 8.1 L (8.4-10.2) mg/dL 08/16/21 Range/Units 12:35 WBC (3.8-10.6) k/uL RBC (4.30-5.90) m/uL Hgb (13.0-17.5) gm/dL Hct (39.0-53.0) % MCV (80.0-100.0) fL ABG pCO2 (35-45) mmHg ABG pO2 (83-108) mmHg ABG HCO3 (21-25) mmol/L ABG Total CO2 (19-24) mmol/L ABG O2 Saturation (94-97) % Potassium (3.5-5.1) mmol/L Carbon Dioxide (22-30) mmol/L BUN (9-20) mg/dL Creatinine (0.66-1.25) mg/dL Glucose (74-99) mg/dL POC Glucose (mg/dL) 168 H (75-99) mg/dL Calcium (8.4-10.2) mg/dL Diabetes panel 08/16/21 Range/Units 04:55 Sodium 142 (137-145) mmol/L Potassium 3.3 L (3.5-5.1) mmol/L Chloride 107 (98-107) mmol/L Carbon Dioxide 31 H (22-30) mmol/L BUN 27 H (9-20) mg/dL Creatinine 0.63 L (0.66-1.25) mg/dL Glucose 141 H (74-99) mg/dL Calcium 8.1 L (8.4-10.2) mg/dL Calcium panel 08/16/21 Range/Units 04:55 Calcium 8.1 L (8.4-10.2) mg/dL Pituitary panel 08/16/21 Range/Units 04:55 Sodium 142 (137-145) mmol/L Potassium 3.3 L (3.5-5.1) mmol/L Chloride 107 (98-107) mmol/L Carbon Dioxide 31 H (22-30) mmol/L BUN 27 H (9-20) mg/dL Creatinine 0.63 L (0.66-1.25) mg/dL Glucose 141 H (74-99) mg/dL Calcium 8.1 L (8.4-10.2) mg/dL Adrenal panel 08/16/21 Range/Units 04:55 Sodium 142 (137-145) mmol/L Potassium 3.3 L (3.5-5.1) mmol/L Chloride 107 (98-107) mmol/L Carbon Dioxide 31 H (22-30) mmol/L BUN 27 H (9-20) mg/dL Creatinine 0.63 L (0.66-1.25) mg/dL Glucose 141 H (74-99) mg/dL Calcium 8.1 L (8.4-10.2) mg/dL Assessment and Plan Assessment: mild traction. We'll perform PEG tube placement Respiratory failure we'll perform tracheostomy tube placement
[2021-08-16] MEDS: ALBUTEROL HFA INHALER INHALATION PRN ×3 (12:54→19:29)
[2021-08-16] MEDS: NOREPINEPHRINE 8 MG in SODIUM CHLORIDE 0.9% 250 ML IV SCH (13:58)
[2021-08-16] MEDS: CISATRACURIUM 200 MG in SODIUM CHLORIDE 0.9% 180 ML IV SCH (13:59)
[2021-08-16 14:17] LABS: ABG Base Excess 8.9 mmol/L; ABG HCO3 35 mmol/L (21-25); ABG Oxygen Saturation 94.4 % (94-97); ABG PCO2 64 mmHg (35-45); ABG PH 7.34 (7.35-7.45); ABG PO2 79 mmHg (83-108); ABG TCO2 37 mmol/L (19-24)
[2021-08-16] MEDS: SODIUM CHLORIDE 0.9% 1,000 ML IV SCH (17:08)
[2021-08-16] MEDS: ATORVASTATIN 40 MG TAB PO SCH (17:17)
[2021-08-16 17:18] LABS: Glucose,Whole Blood 214 mg/dL (75-99)
[2021-08-17 00:05] LABS: Glucose,Whole Blood 135 mg/dL (75-99)
[2021-08-17] MEDS: ARTIFICIAL TEARS-HYPROMELLOSE DROPS 15 ML BTL BOTH EYES SCH ×7 (00:18→23:51)
[2021-08-17] MEDS: INSULIN ASPART (NovoLOG) 100 UNIT/ML VIAL SQ SCH ×5 (00:18→23:57)
[2021-08-17] MEDS: fentaNYL (PF). 1,000 MCG in SODIUM CHLORIDE 0.9% 80 ML IV SCH ×5 (02:12→20:53)
[2021-08-17] MEDS: CISATRACURIUM 200 MG in SODIUM CHLORIDE 0.9% 180 ML IV SCH ×2 (05:00→19:07)
[2021-08-17 05:07] LABS: ABG Base Excess 10.4 mmol/L; ABG HCO3 36 mmol/L (21-25); ABG Oxygen Saturation 88.7 % (94-97); ABG PCO2 62 mmHg (35-45); ABG PH 7.37 (7.35-7.45); ABG TCO2 38 mmol/L (19-24)
[2021-08-17 05:13] LABS: African American GFR (CKD) >90 (>60 ml/min/1.73 sqM); Anion Gap 2 mmol/L; Blood Urea Nitrogen 26 mg/dL (9-20); C Reactive Protein 7.3 mg/dL (<1.0); Calcium 8.1 mg/dL (8.4-10.2); Carbon Dioxide 36 mmol/L (22-30); Chloride 104 mmol/L (98-107); Glucose 138 mg/dL (74-99); LDH 977 U/L (313-618); Non-African American GFR(CKD) >90 (>60 ml/min/1.73 sqM); Potassium 3.7 mmol/L (3.5-5.1); Sodium 142 mmol/L (137-145)
[2021-08-17] MEDS ORDERED: POTASSIUM BICARB-CITRIC ACID 25 MEQ TABLET.EFF PO SCH (06:00)
[2021-08-17 06:11] LABS: Glucose,Whole Blood 111 mg/dL (75-99)
[2021-08-17] MEDS: INSULIN DETEMIR (LEVEMIR) 100 UNIT/ML SYR SQ SCH (06:26)
[2021-08-17 06:29] LABS: ABG PO2 58 mmHg (83-108); Allen Test Performed? no
[2021-08-17] MEDS: ALBUTEROL HFA INHALER INHALATION PRN ×3 (07:28→19:32)
--- NOTE | 2021-08-17 08:15 | XR ---
EXAMINATION TYPE: XR chest 1V portable DATE OF EXAM: 08/17/2021 COMPARISON: 08/15/2021 HISTORY: SOB, Follow Up FINDINGS: Indwelling tubes and catheters are unchanged. Scattered reticulonodular infiltrates persist with increasing infiltrate left lower lobe. Stable appearance of the cardio-mediastinal structures at this time. IMPRESSION: 1. Scattered reticulonodular infiltrates persist with increasing infiltrate left lower lobe.
[2021-08-17] MEDS: ASCORBIC ACID 500 MG TAB PO SCH (08:44)
[2021-08-17] MEDS: PANTOPRAZOLE 40 MG/10 ML VIAL IVP SCH (08:44)
[2021-08-17] MEDS: ASPIRIN 81 MG PO SCH ×2 (08:44→12:58)
[2021-08-17] MEDS: ZINC SULFATE 220 MG CAP PO SCH (08:44)
[2021-08-17] MEDS: CHOLECALCIFEROL 25 MCG (1000 IU) TABLET PO SCH (08:44)
[2021-08-17] MEDS: CHLORHEXIDINE GLUCONATE 15 ML CUP MUCOUS MEM SCH ×2 (08:44→20:53)
[2021-08-17] MEDS: DEXAMETHASONE SOD PHOSPHATE 10 MG/ML 1 ML VIAL IVP SCH (08:44)
[2021-08-17] MEDS: FUROSEMIDE 10 MG/ML 4 ML VIAL IV SCH (08:45)
[2021-08-17] MEDS ORDERED: ENOXAPARIN 40 MG/0.4 ML SYRINGE SQ SCH (09:00)
[2021-08-17] MEDS ORDERED: fentaNYL (PF) 50 MCG/ML 2 ML AMP ONE (09:20)
[2021-08-17] MEDS ORDERED: PROPOFOL 10 MG/ML 20 ML VIAL IV ONE (09:20)
--- NOTE | 2021-08-17 10:16 | P.PN ---
Subjective Progress Note Date: 08/17/21 Acute hypoxic respiratory failure secondary to COVID-19 pneumonia On 08/09/2021 patient is seen in follow-up in the intensive care unit, he remains intubated, sedated and paralyzed on assist-control mode of ventilation, with a rate of 36, tidal labs 450, FiO2 of 60% and PEEP of 18, this morning's blood gas was reviewed showing pO2 of 80, pCO2 of 50, and pH of 7.41, and this was done on FiO2 of 60%. Today's chest x-ray has been reviewed showing bilateral airspace disease, interstitial prominence, no evidence of pneumothorax subpleural effusion, endotracheal tube, NG tube, left subclavian central venous catheter are in appropriate positions. Patient is currently on Nimbex at 2 mics per kilo per minute, he is on Diprivan at 40 mics per kilo per minute, 0.9 at a rate of 75 ML per hour, fentanyl at 1.5 mics per kilo per minute. He is still requiring vasopressor support, and he is on norepinephrine at 0.12 mics per kilo per minute. Vasopressor requirements have remained stable over the last 24 hours, urine output is adequate, the order of 75-100 ML per hour. Patient is being treated for COVID-19 pneumonia with severe hypoxic respiratory failure. He continues on Decadron, Lasix has been discontinued, Baricitinib was placed on hold, she continues on cefepime for empiric antibiotic coverage. He is on prophylactic dose of Lovenox 40 mg daily Blood and sputum cultures have been reviewed, sputum culture only showed Haylee albicans. His labs have been reviewed, his white blood cell count is improving and is down to 14.5 on today's labs, hemoglobin is 12.3, pro-calcitonin level is 0.32 on today's labs, improved over last couple of days. Serum sodium is 148, potassium is 4.5, chloride is 112, CO2 is 32, BUN is 38, creatinine 0.65, his AST is 121 and ALT is 112, slightly improved, alk phos is remains within normal limits at 98, his inflammatory markers are improving and LDH is down to 1032, and CRP is 18.4 on today's labs. Patient's serum sodium has increased, patient is receiving free water flushes with 200 mL every 6 hours, and he is tolerating his tube feedings of vital high-protein at a rate of 37 mL per hour. His urine output is adequate the order of 75-100 ML per hour, renal profile remains relatively stable, with BUN of 38, and creatinine is within normal limits at 0.65. Reevaluated today on 08/10/2021 patient remains in the ICU, intubated and mechanically ventilated. Patient is presently on assist control rate of 36 tidal volume 450 FiO2 60% PEEP was 18 and I cut it down to 16. Continues to have relatively elevated plateau pressure of 31. ABG showed a pO2 of 68 pCO2 49 pH of 7.42. Patient remains on multiple drips including propofol 40 norepinephr ine 0.1 Nimbex at 1.5 and fentanyl at 1 mcg/kg per hour. Patient is on vital 1.2. W scan is 10.9 hemoglobin 11.5 electrolytes are normal BUN is normal creatinine is normal considering the sodium is high at 148 I recommended increasing free water via orogastric tube to 100 mL every 4 hours. Chest x-ray is showing slight improvement, nonetheless continues to show bilateral infiltrates consistent with severe case of COVID-19 pneumonia. Patient remains on the COVID-19 cocktail. Remains on cefepime empirically. Remains on Decadron 6 mg IV push daily, Lovenox 40 mg subcu daily Protonix 40 mg IV push daily and multivitamins. Reevaluated today on 08/11/21, patient remains in the ICU, intubated and mechanically ventilated. Presently on assist control rate of 36 tidal volume 450 FiO2 60% PEEP is at 16, ABG showed a pO2 of 65 pCO2 47 pH of 7.42, hence no changes were made in the ventilator settings today. Patient remains on Nimbex to microgram per kilo per minute norepinephrine 0.07 mcg/kg/m fentanyl at 1.5 mcg/kg/h and propofol 40 mcg/kg/m. Remains on enteral feeding. Chest x-ray co ntinues show bilateral infiltrates consistent with COVID-19 pneumonia and the patient seems to have some component of ARDS. Continues to have relatively high plateau pressures. At least he got is 14 hemoglobin is 11. Sodium is high at 149 however his free water flushes were increased to 200 mL every 4 hours. LDH today is 1059. C-reactive protein is 5.4. Minimal improvement noted but nonetheless LDH seems to be trending down a bit. Reevaluated today on 08/12/21, patient remains intubated and mechanically ventilated in the ICU. He is on assist control rate of 36 tidal volume 450 FiO2 60% PEEP is 16 ABG showed a pO2 of 85 pCO2 46 pH of 7.42 hence I cut down his FiO2 to 55% and kept him on the same ventilator settings otherwise. Patient is on propofol at 50 mcg/kg/m norepinephrine 0.04 Nimbex at 3 mcg/kg/m and fentanyl at 1.5 mcg/kg/h. Patient is receiving enteral feeding vital AF at goal. His WBC is 14.7 hemoglobin is 10.7 otherwise the labs are basically unremarkable. Chest x-ray continues show bilateral infiltrates, slight improvement if any but definitely not getting any worse. Patient remains on the COVID-19 cocktail remains on cefepime. He is on Lovenox 40 mg subcu daily insulin Protonix 40 mg IV push daily and he is receiving zinc. Reevaluated today on 08/13/21, patient remains in the ICU, intubated and mechanically ventilated. He is on assist control rate 36, tidal volume 450 FiO2 65% PEEP is 16. ABG is marginal with a pO2 of 73 pCO2 of 49 pH of 7.39 his O2 saturation is marginal hence no changes were made on the ventilator settings. Kept him on a PEEP of 16, may consider tapering her FiO2 down to 60%. Patient remains on Nimbex at 4 propofol at 50 mcg/kg/m and fentanyl 20 mcg/kg/h. Asked x-ray is not showing much of a change, it is showing multifocal infiltrates and ARDS type picture. Patient continues to have relatively high peak airway press ure and plateau pressures. Electrolytes are normal renal profile is normal WBC count is 13.8 hemoglobin is 10.1. Remains on albuterol, ascorbic acid, aspirin, Lipitor, cefepime Peridex, vitamin D, Decadron 6 mg of the push daily, Lovenox 40 mg subcu daily, insulin, intermittently on norepinephrine, but presently is off norepinephrine. Protonix 40 mg IV push daily, and he is also on zinc daily. Reevaluated today on 08/14/21, patient remains in the ICU, intubated and mechanically ventilated. Remains on assist control rate of 36, FiO2 of 80% today a to the patient desaturated and her FiO2 had to be increased last night. He is on PEEP of 16, chest x-ray is showing slightly worsening bilateral infiltrates. Patient remains sedated but not paralyzed over the last 24 hours, however considering his worsening oxygenation I recommended that we go back on Nimbex in addition to propofol at 60 and fentanyl at 2 mcg/kg/h. Patient is hemodynamically stable, not requiring any pressors. ABG this morning on 80% showed a pO2 of 73 pCO2 of 35 pH of 7.42. Again his chest x-ray is showing a worsening picture of his bilateral infiltrates. WBC count today is 13.8 hemoglobin is 10.1. Basic metabolic profile is relatively normal. Patient remains on enteral feeding. Via orogastric tube. Remains on the same medications as listed above. And he is empirically on cefepime. Reevaluated today on 08/15/21, patient remains in the ICU, intubated and mechanically ventilated. Patient is on assist control rate of 36 tidal volume 450 FiO2 70% PEEP of 16 ABG showed a pO2 of 101 pCO2 44 pH of 7.44. Patient remains sedated and paralyzed, he is on Nimbex at 2 mcg/kg/m fentanyl 2 mcg/kg/h he is also on propofol at 50 mcg/kg/m, required norepinephrine at 0.06 mcg/kg/m he is on vital AF at 25 mL per hour. Not much of any improvement I have noticed in the last 5 days on this patient. His chest x-ray is basically about the same. His ventilatory status is basically about the same, attempted higher PEEP did not seem to improve much, attempted prone position today, and the patient actually became worse, he desaturated after few hours in a prone position, hence I had to place patient back in supine position. I believe the patient is demonstrating no improvement whatsoever, and his chest x-ray is also showing lateral infiltrates, and suspect significant component of ARDS, continues to have high peak airway pressure and high plateau pressures. D-dimer today is up to 3.86, and recommended increasing Lovenox to 40 mg subcu twice a day. His WBC count is 12.2 hemoglobin is 9.9 electrolytes showed low potassium of 3.1, renal profile is normal. 08/16/2021, the patient remains intubated on a mechanical ventilator. On today's evaluation, the patient is sedated with propofol which is running at 50 mcg/kg per minute and the patient is also on fentanyl at 2 mcg/kg/h and index is at 2 mcg/kg per minute. He is adequately sedated and paralyzed. He remains interested mechanical ventilator at the rate of 36 with a tidal volume of 450 and FiO2 of 70% with a PEEP of 16. The chest x-ray from today is showing diffuse bilateral pulmonary infiltrates lot of nodularity in the upper lobes bi laterally more so on the right ET tube is in a good location and the patient has an orogastric tube in place and the PICC line in the right upper extremity. No other significant changes are seen compared to yesterday's chest film. The blood gases from today showing a pH of 7.45 with a pCO2 of 46 and pO2 of 67. Inflammatory markers on this patient have not been checked recently. Nevertheless, the most recent evaluations showed an LDH level of 1014 from 08/12/2021 and the CRP level was 4.3. He is afebrile. Hemodynamically, he is still requiring low-dose pressors and the patient is on norepinephrine infusion running at 0.06 mcg/kg per minute. IV fluids are running at the rate of 20 disease and hour and overall fluid balance on this patient has been -1.5 L for today and -2.3 L 4 yesterday. The patient is receiving IV Lasix 40 mg to 12 hours. The patient's pro calcitonin level was at 0.32. He is on no antibiotic coverage. Cultures have been essentially negative with exception of Haylee albicans in the sputum. The patient remains on Decadron and the patient has been on IV cefepime since 08/03/2021. Enterofeeding is to or GE and the patient is receiving vital AF at the rate of 31 mL an hour. In terms of the rest of the blood work, the patient has normal electrolytes, potassium level is at 3.1, BUN is 26 with a creatinine of 0.6, electrolytes are all within normal limits. The patient remains on Decadron 6 mg daily 24 hours. The patient is also on Lovenox 40 mg subcu every 24 hours. The d-dimer from 08/15/2021 was 3.86. Doppler of the lower extremity done yesterday was negative for DVT. 08/17/2021, the patient is being seen for a follow-up in the intensive care unit. The patient remains intubated on a mechanical ventilator. The patient is currently on a combination of propofol and fentanyl. Propofol is running at 55 Dank respiratory kilo gram per minute and fentanyl is running at 2 mcg/kg/h. Patient is also Nimbex running at 2.5 mcg/kg per minute. On today's evaluation, the patient remains on a mechanical ventilator assist control mode at the rate of 36, tidal volumes of 450, FiO2 currently is at 60% with a PEEP of 15. Peak airway pressure is 31. The chest x-ray from today showing diffuse bilateral pulmonary infiltrates and ET tube is in a good location. There is no acute abnormalities. Findings and essentially consistent with Coumadin therapy related to pneumonia with stable bilateral carotid pulmonary infiltrates which remain essentially unchanged. Blood gases from today shows a pH of 7.37 with a pCO2 of 62 and pO2 of 58 and as such, there is not a lot of room for further weaning this patient. The patient also has a PICC line in his right upper extremity. OG tube is in a good location. No evidence of any pneumothorax. In terms of COVID 19 therapy, the patient remains on treatment with Decadron at 6 mg IV every 24 hours. The patient is also on anticoagulation. He is receiving Lovenox 40 mg subcu on a daily basis. Blood sugars controlled with Levemir insulin 15 units at bedtime in addition to his vascular coverage. The patient is receiving 40 mg of Lasix IV on a daily basis. Overall fluid balance has been -1.5 L over the past 24 hours. No signs of any significant fluid overload. In terms of microbiology, the patient has Haylee albicans in the sputum. Rest of the cultures came back all negative. No antibiotic coverage. At this point in time. The patient has a normal renal function, normal electrolytes, LDH level is down to 977 and CRP level is at 7.3. Most recent d-dimer is at 2.62. Objective - Vital Signs Vital signs: Vital Signs Temp 98.6 F 08/17/21 08:00 Pulse 80 08/17/21 09:15 Resp 28 H 08/17/21 09:00 BP 116/55 08/17/21 06:15 Pulse Ox 82 L 08/17/21 09:15 Intake & Output 08/16/21 08/17/21 08/17/21 18:59 06:59 18:59 Intake Total 708.277 0512.903 378.580 Output Total 3268 865 235 Balance -2360.323 810.903 143.580 Weight 117.8 kg Intake: IV 23 253 99 Sodium Chloride 0.9% 1, 20 220 90 000 ml @ 20 mls/hr IV . Q24H [facility] Rx#:[id number] pressure bag 3 33 9 Intake, IV Titration 785.025 3644.903 216.580 Amount Cisatracurium 200 mg In 193.648 187.408 60.736 Sodium Chloride 0.9% 180 ml @ 1 MCG/KG/MIN 6.24 mls/hr IV .Q24H [facility] Rx#: [id number] Norepinephrine 8 mg In 215.066 80.223 55.844 Sodium Chloride 0.9% 250 ml @ 0.05 MCG/KG/MIN 10. 739 mls/hr IV .Q24H [facility] Rx#:[id number] fentaNYL (PF). 1,000 mcg 100 271.44 In Sodium Chloride 0.9% 80 ml @ 0.5 MCG/KG/HR 5.2 mls/hr IV .[id number] [facility] Rx#:[id number] propofoL 1,000 mg In 344.963 463.832 100 Empty Bag 1 bag @ Titrate IV .Q0M [facility] Rx#: [id number] Tube Feeding 31 330 33 Other 90 30 Output: Urine 3268 865 235 Other: Voiding Method Indwelling Catheter ABP, PAP, CO, CI - Last Documented Arterial Blood Pressure 172/73 - Exam Physical Exam revealed 65-year-old white male intubated and ventilated and sed ated , on Nimbex, propofol and fentanyl. Head: Atraumatic, normocephalic. Endotracheal tube and orogastric tube are intact. HEENT:[Neck is supple.] [No neck masses.] [No thyromegaly.] [No JVD.] Chest: [Crackles persist at the bases. Persist. Cardiac Exam: [Normal S1 and S2, no S3 gallop, no murmur.] Abdomen: [Soft, nontender, no megaly, no rebound, no guarding, normal bowel sounds.] Extremities: [No clubbing, trace of bipedal edema., no cyanosis.] Neurological Exam: Could not assess, patient is fully sedated Psychiatric: Could not be assessed patient is fully sedated - Labs CBC & Chem 7: 08/16/21 04:55 08/17/21 04:12 Labs: Abnormal Lab Results - Last 24 Hours (Table) 08/16/21 08/16/21 08/16/21 Range/Units 12:35 14:13 17:15 D-Dimer (<0.60) mg/L FEU ABG pH 7.34 L (7.35-7.45) ABG pCO2 64 H (35-45) mmHg ABG pO2 79 L (83-108) mmHg ABG HCO3 35 H (21-25) mmol/L ABG Total CO2 37 H (19-24) mmol/L ABG O2 Saturation (94-97) % Carbon Dioxide (22-30) mmol/L BUN (9-20) mg/dL Creatinine (0.66-1.25) mg/dL Glucose (74-99) mg/dL POC Glucose (mg/dL) 168 H 214 H (75-99) mg/dL Calcium (8.4-10.2) mg/dL Lactate Dehydrogenase (313-618) U/L C-Reactive Protein (<1.0) mg/dL 08/17/21 08/17/21 08/17/21 Range/Units 00:03 04:12 05:00 D-Dimer 2.62 H (<0.60) mg/L FEU ABG pH (7.35-7.45) ABG pCO2 (35-45) mmHg ABG pO2 (83-108) mmHg ABG HCO3 (21-25) mmol/L ABG Total CO2 (19-24) mmol/L ABG O2 Saturation (94-97) % Carbon Dioxide 36 H (22-30) mmol/L BUN 26 H (9-20) mg/dL Creatinine 0.54 L (0.66-1.25) mg/dL Glucose 138 H (74-99) mg/dL POC Glucose (mg/dL) 135 H (75-99) mg/dL Calcium 8.1 L (8.4-10.2) mg/dL Lactate Dehydrogenase 977 H (313-618) U/L C-Reactive Protein 7.3 H (<1.0) mg/dL 08/17/21 08/17/21 Range/Units 05:05 06:09 D-Dimer (<0.60) mg/L FEU ABG pH (7.35-7.45) ABG pCO2 62 H (35-45) mmHg ABG pO2 58 L* (83-108) mmHg ABG HCO3 36 H (21-25) mmol/L ABG Total CO2 38 H (19-24) mmol/L ABG O2 Saturation 88.7 L (94-97) % Carbon Dioxide (22-30) mmol/L BUN (9-20) mg/dL Creatinine (0.66-1.25) mg/dL Glucose (74-99) mg/dL POC Glucose (mg/dL) 111 H (75-99) mg/dL Calcium (8.4-10.2) mg/dL Lactate Dehydrogenase (313-618) U/L C-Reactive Protein (<1.0) mg/dL Assessment and Plan Plan: 1 Acute hypoxic respiratory failure secondary to COVID-19 pneumonia, patient is not vaccinated. His symptoms started on 07/24/21, patient received monoclonal antibody infusion. Received Baricitinib on 07/28. Transferred to the ICU on 08/02 and intubated presently remains intubated sedated and mechanically ventilated sedated, and he had to be paralyzed on 08/14 mostly because of his worsening hypoxia. Clinically unchanged. Chest x-ray findings are essentially unchanged. There is not a whole lot of room for weaning and a general surgical consultation was obtained for possible PEG and trach. 2 Possible underlying bacterial infection, based on an elevated glucose to Levaquin and the patient is currently on IV cefepime, completed the course of IV cefepime and the cultures of been all negative and a sputum sample is showing Haylee albicans. 3 Cardiomyopathy and LV dysfunction, ejection fraction of 40-45%. Patient has chronic systolic congestive heart failure. 4 Benign essential hypertension 5 History of alcohol abuse, in remission 6 History of PTSD 7 History of underlying coronary artery disease 8 Hypernatremia secondary to diuretics patient is receiving free water flushes. Sodium improved. Plan Continue ventilator support, change the patient to a pressure control mode of mechanical ventilation. Please refer to the changes on a mechanical ventilator. Follow-up gases will be obtained and an hour. proceed with PEG and trach and for that reason general surgical consultation will be obtained. Continue Decadron Continue Lovenox, 40 mg q24 hours and a Doppler of the lower extremity was repeated and the numbers were negative IVF to KVO Start the patient on Lasix 40 mg IV every 24 hours The patient's inflammatory marker for tomorrow Enteral feeding for nutritional support Daily chest x-rays We'll continue to follow. Condition is obviously critical and poor outcome is anticipated or suspect in this patient based on his comorbidities. We'll continue to follow. Cardiac care evaluation, more than 30 minute Time with Patient: Greater than 30
[2021-08-17 10:46] LABS: HCT 26.4 % (39.0-53.0); Hypochromasia Marked; MCH 32.5 pg (25.0-35.0); MCHC 30.5 g/dL (31.0-37.0); MCV 106.7 fL (80.0-100.0); Macrocytosis Moderate; Mean Platelet Volume 8.3; Platelet Count 255 k/uL (150-450); RBC 2.47 m/uL (4.30-5.90); RDW 15.4 % (11.5-15.5); WBC 7.9 k/uL (3.8-10.6)
[2021-08-17 11:37] LABS: ABG Base Excess 14.8 mmol/L; ABG Oxygen Saturation 85.1 % (94-97); ABG PCO2 65 mmHg (35-45); ABG TCO2 42 mmol/L (19-24)
[2021-08-17 11:40] LABS: ABG HCO3 40 mmol/L (21-25); ABG PO2 51 mmHg (83-108)
[2021-08-17] MEDS: SODIUM CHLORIDE 0.9% 1,000 ML IV SCH (11:55)
[2021-08-17 12:00] LABS: Glucose,Whole Blood 155 mg/dL (75-99)
--- NOTE | 2021-08-17 12:56 | P.PN ---
Progress Note - Text Progress Note Date: 08/17/21 Patient remained stable.. He'll be scheduled for tracheostomy and PEG tube tomorrow.
[2021-08-17 13:19] LABS: ABG Base Excess 13.4 mmol/L; ABG HCO3 39 mmol/L (21-25); ABG Oxygen Saturation 90.8 % (94-97); ABG PCO2 67 mmHg (35-45); ABG PH 7.37 (7.35-7.45); ABG PO2 62 mmHg (83-108); ABG TCO2 41 mmol/L (19-24)
[2021-08-17 17:15] LABS: Glucose,Whole Blood 168 mg/dL (75-99)
[2021-08-17] MEDS: ATORVASTATIN 40 MG TAB PO SCH (17:44)
[2021-08-17] MEDS: NOREPINEPHRINE 8 MG in SODIUM CHLORIDE 0.9% 250 ML IV SCH (19:07)
[2021-08-17 23:58] LABS: Glucose,Whole Blood 125 mg/dL (75-99)
[2021-08-18] MEDS: fentaNYL (PF). 1,000 MCG in SODIUM CHLORIDE 0.9% 80 ML IV SCH ×6 (01:05→18:56)
[2021-08-18] MEDS: ASPIRIN 81 MG PO SCH ×2 (02:23→20:37)
[2021-08-18] MEDS: ARTIFICIAL TEARS-HYPROMELLOSE DROPS 15 ML BTL BOTH EYES SCH ×5 (02:34→20:42)
[2021-08-18 04:35] LABS: HCT 29.5 % (39.0-53.0); Hypochromasia Slight; MCH 33.2 pg (25.0-35.0); MCHC 32.3 g/dL (31.0-37.0); MCV 102.7 fL (80.0-100.0); Macrocytosis Slight; Mean Platelet Volume 8.3; Platelet Count 333 k/uL (150-450); RBC 2.87 m/uL (4.30-5.90); RDW 14.5 % (11.5-15.5)
[2021-08-18 04:46] LABS: HGB 9.5 gm/dL (13.0-17.5)
[2021-08-18 04:53] LABS: African American GFR (CKD) >90 (>60 ml/min/1.73 sqM); Anion Gap 3 mmol/L; Blood Urea Nitrogen 23 mg/dL (9-20); Carbon Dioxide 36 mmol/L (22-30); Chloride 103 mmol/L (98-107); Glucose 126 mg/dL (74-99); Non-African American GFR(CKD) >90 (>60 ml/min/1.73 sqM); Potassium 3.5 mmol/L (3.5-5.1); Sodium 142 mmol/L (137-145)
[2021-08-18] MEDS: CISATRACURIUM 200 MG in SODIUM CHLORIDE 0.9% 180 ML IV SCH ×2 (04:57→18:04)
[2021-08-18] MEDS ORDERED: POTASSIUM BICARB-CITRIC ACID 25 MEQ TABLET.EFF PO SCH (06:00)
[2021-08-18 06:01] LABS: ABG Base Excess 14.9 mmol/L; ABG HCO3 38 mmol/L (21-25); ABG PCO2 49 mmHg (35-45); ABG PO2 92 mmHg (83-108); ABG TCO2 40 mmol/L (19-24); Allen Test Performed? Yes
[2021-08-18] MEDS: INSULIN ASPART (NovoLOG) 100 UNIT/ML VIAL SQ SCH ×3 (06:08→18:05)
[2021-08-18 06:09] LABS: Glucose,Whole Blood 112 mg/dL (75-99)
[2021-08-18] MEDS: INSULIN DETEMIR (LEVEMIR) 100 UNIT/ML SYR SQ SCH (06:10)
[2021-08-18] MEDS: ALBUTEROL HFA INHALER INHALATION PRN ×2 (07:43→11:39)
--- NOTE | 2021-08-18 08:51 | P.PN ---
Subjective Progress Note Date: 08/18/21 Acute hypoxic respiratory failure secondary to COVID-19 pneumonia On 08/09/2021 patient is seen in follow-up in the intensive care unit, he remains intubated, sedated and paralyzed on assist-control mode of ventilation, with a rate of 36, tidal labs 450, FiO2 of 60% and PEEP of 18, this morning's blood gas was reviewed showing pO2 of 80, pCO2 of 50, and pH of 7.41, and this was done on FiO2 of 60%. Today's chest x-ray has been reviewed showing bilateral airspace disease, interstitial prominence, no evidence of pneumothorax subpleural effusion, endotracheal tube, NG tube, left subclavian central venous catheter are in appropriate positions. Patient is currently on Nimbex at 2 mics per kilo per minute, he is on Diprivan at 40 mics per kilo per minute, 0.9 at a rate of 75 ML per hour, fentanyl at 1.5 mics per kilo per minute. He is still requiring vasopressor support, and he is on norepinephrine at 0.12 mics per kilo per minute. Vasopressor requirements have remained stable over the last 24 hours, urine output is adequate, the order of 75-100 ML per hour. Patient is being treated for COVID-19 pneumonia with severe hypoxic respiratory failure. He continues on Decadron, Lasix has been discontinued, Baricitinib was placed on hold, she continues on cefepime for empiric antibiotic coverage. He is on prophylactic dose of Lovenox 40 mg daily Blood and sputum cultures have been reviewed, sputum culture only showed Haylee albicans. His labs have been reviewed, his white blood cell count is improving and is down to 14.5 on today's labs, hemoglobin is 12.3, pro-calcitonin level is 0.32 on today's labs, improved over last couple of days. Serum sodium is 148, potassium is 4.5, chloride is 112, CO2 is 32, BUN is 38, creatinine 0.65, his AST is 121 and ALT is 112, slightly improved, alk phos is remains within normal limits at 98, his inflammatory markers are improving and LDH is down to 1032, and CRP is 18.4 on today's labs. Patient's serum sodium has increased, patient is receiving free water flushes with 200 mL every 6 hours, and he is tolerating his tube feedings of vital high-protein at a rate of 37 mL per hour. His urine output is adequate the order of 75-100 ML per hour, renal profile remains relatively stable, with BUN of 38, and creatinine is within normal limits at 0.65. Reevaluated today on 08/10/2021 patient remains in the ICU, intubated and mechanically ventilated. Patient is presently on assist control rate of 36 tidal volume 450 FiO2 60% PEEP was 18 and I cut it down to 16. Continues to have relatively elevated plateau pressure of 31. ABG showed a pO2 of 68 pCO2 49 pH of 7.42. Patient remains on multiple drips including propofol 40 norepinephr ine 0.1 Nimbex at 1.5 and fentanyl at 1 mcg/kg per hour. Patient is on vital 1.2. W scan is 10.9 hemoglobin 11.5 electrolytes are normal BUN is normal creatinine is normal considering the sodium is high at 148 I recommended increasing free water via orogastric tube to 100 mL every 4 hours. Chest x-ray is showing slight improvement, nonetheless continues to show bilateral infiltrates consistent with severe case of COVID-19 pneumonia. Patient remains on the COVID-19 cocktail. Remains on cefepime empirically. Remains on Decadron 6 mg IV push daily, Lovenox 40 mg subcu daily Protonix 40 mg IV push daily and multivitamins. Reevaluated today on 08/11/21, patient remains in the ICU, intubated and mechanically ventilated. Presently on assist control rate of 36 tidal volume 450 FiO2 60% PEEP is at 16, ABG showed a pO2 of 65 pCO2 47 pH of 7.42, hence no changes were made in the ventilator settings today. Patient remains on Nimbex to microgram per kilo per minute norepinephrine 0.07 mcg/kg/m fentanyl at 1.5 mcg/kg/h and propofol 40 mcg/kg/m. Remains on enteral feeding. Chest x-ray co ntinues show bilateral infiltrates consistent with COVID-19 pneumonia and the patient seems to have some component of ARDS. Continues to have relatively high plateau pressures. At least he got is 14 hemoglobin is 11. Sodium is high at 149 however his free water flushes were increased to 200 mL every 4 hours. LDH today is 1059. C-reactive protein is 5.4. Minimal improvement noted but nonetheless LDH seems to be trending down a bit. Reevaluated today on 08/12/21, patient remains intubated and mechanically ventilated in the ICU. He is on assist control rate of 36 tidal volume 450 FiO2 60% PEEP is 16 ABG showed a pO2 of 85 pCO2 46 pH of 7.42 hence I cut down his FiO2 to 55% and kept him on the same ventilator settings otherwise. Patient is on propofol at 50 mcg/kg/m norepinephrine 0.04 Nimbex at 3 mcg/kg/m and fentanyl at 1.5 mcg/kg/h. Patient is receiving enteral feeding vital AF at goal. His WBC is 14.7 hemoglobin is 10.7 otherwise the labs are basically unremarkable. Chest x-ray continues show bilateral infiltrates, slight improvement if any but definitely not getting any worse. Patient remains on the COVID-19 cocktail remains on cefepime. He is on Lovenox 40 mg subcu daily insulin Protonix 40 mg IV push daily and he is receiving zinc. Reevaluated today on 08/13/21, patient remains in the ICU, intubated and mechanically ventilated. He is on assist control rate 36, tidal volume 450 FiO2 65% PEEP is 16. ABG is marginal with a pO2 of 73 pCO2 of 49 pH of 7.39 his O2 saturation is marginal hence no changes were made on the ventilator settings. Kept him on a PEEP of 16, may consider tapering her FiO2 down to 60%. Patient remains on Nimbex at 4 propofol at 50 mcg/kg/m and fentanyl 20 mcg/kg/h. Asked x-ray is not showing much of a change, it is showing multifocal infiltrates and ARDS type picture. Patient continues to have relatively high peak airway press ure and plateau pressures. Electrolytes are normal renal profile is normal WBC count is 13.8 hemoglobin is 10.1. Remains on albuterol, ascorbic acid, aspirin, Lipitor, cefepime Peridex, vitamin D, Decadron 6 mg of the push daily, Lovenox 40 mg subcu daily, insulin, intermittently on norepinephrine, but presently is off norepinephrine. Protonix 40 mg IV push daily, and he is also on zinc daily. Reevaluated today on 08/14/21, patient remains in the ICU, intubated and mechanically ventilated. Remains on assist control rate of 36, FiO2 of 80% today a to the patient desaturated and her FiO2 had to be increased last night. He is on PEEP of 16, chest x-ray is showing slightly worsening bilateral infiltrates. Patient remains sedated but not paralyzed over the last 24 hours, however considering his worsening oxygenation I recommended that we go back on Nimbex in addition to propofol at 60 and fentanyl at 2 mcg/kg/h. Patient is hemodynamically stable, not requiring any pressors. ABG this morning on 80% showed a pO2 of 73 pCO2 of 35 pH of 7.42. Again his chest x-ray is showing a worsening picture of his bilateral infiltrates. WBC count today is 13.8 hemoglobin is 10.1. Basic metabolic profile is relatively normal. Patient remains on enteral feeding. Via orogastric tube. Remains on the same medications as listed above. And he is empirically on cefepime. Reevaluated today on 08/15/21, patient remains in the ICU, intubated and mechanically ventilated. Patient is on assist control rate of 36 tidal volume 450 FiO2 70% PEEP of 16 ABG showed a pO2 of 101 pCO2 44 pH of 7.44. Patient remains sedated and paralyzed, he is on Nimbex at 2 mcg/kg/m fentanyl 2 mcg/kg/h he is also on propofol at 50 mcg/kg/m, required norepinephrine at 0.06 mcg/kg/m he is on vital AF at 25 mL per hour. Not much of any improvement I have noticed in the last 5 days on this patient. His chest x-ray is basically about the same. His ventilatory status is basically about the same, attempted higher PEEP did not seem to improve much, attempted prone position today, and the patient actually became worse, he desaturated after few hours in a prone position, hence I had to place patient back in supine position. I believe the patient is demonstrating no improvement whatsoever, and his chest x-ray is also showing lateral infiltrates, and suspect significant component of ARDS, continues to have high peak airway pressure and high plateau pressures. D-dimer today is up to 3.86, and recommended increasing Lovenox to 40 mg subcu twice a day. His WBC count is 12.2 hemoglobin is 9.9 electrolytes showed low potassium of 3.1, renal profile is normal. 08/16/2021, the patient remains intubated on a mechanical ventilator. On today's evaluation, the patient is sedated with propofol which is running at 50 mcg/kg per minute and the patient is also on fentanyl at 2 mcg/kg/h and index is at 2 mcg/kg per minute. He is adequately sedated and paralyzed. He remains interested mechanical ventilator at the rate of 36 with a tidal volume of 450 and FiO2 of 70% with a PEEP of 16. The chest x-ray from today is showing diffuse bilateral pulmonary infiltrates lot of nodularity in the upper lobes bi laterally more so on the right ET tube is in a good location and the patient has an orogastric tube in place and the PICC line in the right upper extremity. No other significant changes are seen compared to yesterday's chest film. The blood gases from today showing a pH of 7.45 with a pCO2 of 46 and pO2 of 67. Inflammatory markers on this patient have not been checked recently. Nevertheless, the most recent evaluations showed an LDH level of 1014 from 08/12/2021 and the CRP level was 4.3. He is afebrile. Hemodynamically, he is still requiring low-dose pressors and the patient is on norepinephrine infusion running at 0.06 mcg/kg per minute. IV fluids are running at the rate of 20 disease and hour and overall fluid balance on this patient has been -1.5 L for today and -2.3 L 4 yesterday. The patient is receiving IV Lasix 40 mg to 12 hours. The patient's pro calcitonin level was at 0.32. He is on no antibiotic coverage. Cultures have been essentially negative with exception of Haylee albicans in the sputum. The patient remains on Decadron and the patient has been on IV cefepime since 08/03/2021. Enterofeeding is to or GE and the patient is receiving vital AF at the rate of 31 mL an hour. In terms of the rest of the blood work, the patient has normal electrolytes, potassium level is at 3.1, BUN is 26 with a creatinine of 0.6, electrolytes are all within normal limits. The patient remains on Decadron 6 mg daily 24 hours. The patient is also on Lovenox 40 mg subcu every 24 hours. The d-dimer from 08/15/2021 was 3.86. Doppler of the lower extremity done yesterday was negative for DVT. 08/17/2021, the patient is being seen for a follow-up in the intensive care unit. The patient remains intubated on a mechanical ventilator. The patient is currently on a combination of propofol and fentanyl. Propofol is running at 55 Dank respiratory kilo gram per minute and fentanyl is running at 2 mcg/kg/h. Patient is also Nimbex running at 2.5 mcg/kg per minute. On today's evaluation, the patient remains on a mechanical ventilator assist control mode at the rate of 36, tidal volumes of 450, FiO2 currently is at 60% with a PEEP of 15. Peak airway pressure is 31. The chest x-ray from today showing diffuse bilateral pulmonary infiltrates and ET tube is in a good location. There is no acute abnormalities. Findings and essentially consistent with Coumadin therapy related to pneumonia with stable bilateral carotid pulmonary infiltrates which remain essentially unchanged. Blood gases from today shows a pH of 7.37 with a pCO2 of 62 and pO2 of 58 and as such, there is not a lot of room for further weaning this patient. The patient also has a PICC line in his right upper extremity. OG tube is in a good location. No evidence of any pneumothorax. In terms of COVID 19 therapy, the patient remains on treatment with Decadron at 6 mg IV every 24 hours. The patient is also on anticoagulation. He is receiving Lovenox 40 mg subcu on a daily basis. Blood sugars controlled with Levemir insulin 15 units at bedtime in addition to his vascular coverage. The patient is receiving 40 mg of Lasix IV on a daily basis. Overall fluid balance has been -1.5 L over the past 24 hours. No signs of any significant fluid overload. In terms of microbiology, the patient has Haylee albicans in the sputum. Rest of the cultures came back all negative. No antibiotic coverage. At this point in time. The patient has a normal renal function, normal electrolytes, LDH level is down to 977 and CRP level is at 7.3. Most recent d-dimer is at 2.62. 08/18/2021, the patient is still a mechanical ventilator, sedated, paralyzed, on a pressure control mode of mechanical ventilation. The plan for today is to proceed with a tracheostomy tube insertion of a PEG tube insertion and this will be done by general surgery. For now, the patient is on propofol which is running at 50 mcg/kg per minute. Fentanyl is running at 2 mcg/kg/h and the patient is also paralyzed with Nimbex at 2.5 mcg/kg per minute. He is on a mechanical ventilator. He is on pressure control at a pressure control of 70 cm of water with a rate of 28, FiO2 of 80% and a PEEP of 15. Chest x-ray shows no interval change and the patient had diffuse bilateral pulmonary infiltrates. The patient's peak airway pressures 33. Static airway pressures around 30. The blood gases from today shows a pH of 7.50 with a pCO2 of 48 and pO2 of 92. The patient has COVID 19 related pneumonia with ongoing but the pulmonary infiltrates/ARDS. In terms of therapy, the patient remains on Decadron 6 mg IV every 24 hours. He is also on Lovenox for DVT prophylaxis for evidence of degenerative daily basis. He is receiving Lasix 40 mg IV on a daily basis. His inflammatory markers were essentially down trending in the most recent LDH level was down to 977. Rest of the labs were reviewed. No other significant abnormalities noted. The patient remains on Levemir insulin for blood sugar control which is at 15 units along with a sliding scale NovoLog coverage.On his blood work, the white cell count was at 9 with a hemoglobin of 9.9, sodium was 142 with a bicarb of 36, yet is 23 with a creatinine of 0.4. Cultures of been all negative with exception of Haylee in the sputum. Blood sugar is adequate control for now. His overall fluid balance is positive for 180 mL over the past 24 hours. Objective - Vital Signs Vital signs: Vital Signs Temp 97.6 F 08/18/21 04:00 Pulse 79 08/18/21 07:00 Resp 28 H 08/18/21 07:00 BP 88/57 08/17/21 12:30 Pulse Ox 98 08/18/21 07:00 Intake & Output 08/17/21 08/18/21 08/18/21 18:59 06:59 18:59 Intake Total 8908.166 0748.644 141 Output Total 2915 600 35 Balance -1279.211 770.644 106 Weight 117.8 kg 117.8 kg Intake: IV 336 253 23 Sodium Chloride 0.9% 1, 300 220 20 000 ml @ 20 mls/hr IV . Q24H [facility] Rx#:[id number] pressure bag 36 33 3 Intake, IV Titration 961.789 829.644 100 Amount Cisatracurium 200 mg In 200.000 153.4 Sodium Chloride 0.9% 180 ml @ 1 MCG/KG/MIN 6.24 mls/hr IV .Q24H [facility] Rx#: [id number] Norepinephrine 8 mg In 164.604 117.701 Sodium Chloride 0.9% 250 ml @ 0.05 MCG/KG/MIN 10. 739 mls/hr IV .Q24H [facility] Rx#:[id number] fentaNYL (PF). 1,000 mcg 200 265.893 In Sodium Chloride 0.9% 80 ml @ 0.5 MCG/KG/HR 5.2 mls/hr IV .[id number] [facility] Rx#:[id number] propofoL 1,000 mg In 397.185 292.65 100 Empty Bag 1 bag @ Titrate IV .Q0M [facility] Rx#: [id number] Tube Feeding 248 198 18 Other 90 90 Output: Urine 2915 600 35 Other: Voiding Method Indwelling Catheter Indwelling Catheter ABP, PAP, CO, CI - Last Documented Arterial Blood Pressure 117/56 - Exam Physical Exam revealed 65-year-old white male intubated and ventilated and sedated , on Nimbex, propofol and fentanyl. Head: Atraumatic, normocephalic. Endotracheal tube and orogastric tube are intact. HEENT:[Neck is supple.] [No neck masses.] [No thyromegaly.] [No JVD.] Chest: [Crackles persist at the bases. Persist. Cardiac Exam: [Normal S1 and S2, no S3 gallop, no murmur.] Abdomen: [Soft, nontender, no megaly, no rebound, no guarding, normal bowel sounds.] Extremities: [No clubbing, trace of bipedal edema., no cyanosis.] Neurological Exam: Could not assess, patient is fully sedated Psychiatric: Could not be assessed patient is fully sedated - Labs CBC & Chem 7: 08/18/21 04:10 08/18/21 04:10 Labs: Abnormal Lab Results - Last 24 Hours (Table) 08/17/21 08/17/21 08/17/21 Range/Units 10:25 11:35 11:59 RBC 2.47 L (4.30-5.90) m/uL Hgb 8.0 L D (13.0-17.5) gm/dL Hct 26.4 L (39.0-53.0) % MCV 106.7 H (80.0-100.0) fL MCHC 30.5 L (31.0-37.0) g/dL ABG pH (7.35-7.45) ABG pCO2 65 H (35-45) mmHg ABG pO2 51 L* (83-108) mmHg ABG HCO3 40 H* (21-25) mmol/L ABG Total CO2 42 H (19-24) mmol/L ABG O2 Saturation 85.1 L (94-97) % Carbon Dioxide (22-30) mmol/L BUN (9-20) mg/dL Creatinine (0.66-1.25) mg/dL Glucose (74-99) mg/dL POC Glucose (mg/dL) 155 H (75-99) mg/dL Calcium (8.4-10.2) mg/dL 08/17/21 08/17/21 08/17/21 Range/Units 13:17 17:13 23:56 RBC (4.30-5.90) m/uL Hgb (13.0-17.5) gm/dL Hct (39.0-53.0) % MCV (80.0-100.0) fL MCHC (31.0-37.0) g/dL ABG pH (7.35-7.45) ABG pCO2 67 H (35-45) mmHg ABG pO2 62 L (83-108) mmHg ABG HCO3 39 H (21-25) mmol/L ABG Total CO2 41 H (19-24) mmol/L ABG O2 Saturation 90.8 L (94-97) % Carbon Dioxide (22-30) mmol/L BUN (9-20) mg/dL Creatinine (0.66-1.25) mg/dL Glucose (74-99) mg/dL POC Glucose (mg/dL) 168 H 125 H (75-99) mg/dL Calcium (8.4-10.2) mg/dL 08/18/21 08/18/21 08/18/21 Range/Units 04:10 04:10 05:57 RBC 2.87 L (4.30-5.90) m/uL Hgb 9.5 L D (13.0-17.5) gm/dL Hct 29.5 L (39.0-53.0) % MCV 102.7 H (80.0-100.0) fL MCHC (31.0-37.0) g/dL ABG pH 7.50 H (7.35-7.45) ABG pCO2 49 H (35-45) mmHg ABG pO2 (83-108) mmHg ABG HCO3 38 H (21-25) mmol/L ABG Total CO2 40 H (19-24) mmol/L ABG O2 Saturation (94-97) % Carbon Dioxide 36 H (22-30) mmol/L BUN 23 H (9-20) mg/dL Creatinine 0.47 L (0.66-1.25) mg/dL Glucose 126 H (74-99) mg/dL POC Glucose (mg/dL) (75-99) mg/dL Calcium 8.0 L (8.4-10.2) mg/dL 08/18/21 Range/Units 06:07 RBC (4.30-5.90) m/uL Hgb (13.0-17.5) gm/dL Hct (39.0-53.0) % MCV (80.0-100.0) fL MCHC (31.0-37.0) g/dL ABG pH (7.35-7.45) ABG pCO2 (35-45) mmHg ABG pO2 (83-108) mmHg ABG HCO3 (21-25) mmol/L ABG Total CO2 (19-24) mmol/L ABG O2 Saturation (94-97) % Carbon Dioxide (22-30) mmol/L BUN (9-20) mg/dL Creatinine (0.66-1.25) mg/dL Glucose (74-99) mg/dL POC Glucose (mg/dL) 112 H (75-99) mg/dL Calcium (8.4-10.2) mg/dL Assessment and Plan Plan: 1 Acute hypoxic respiratory failure secondary to COVID-19 pneumonia, patient is not vaccinated. His symptoms started on 07/24/21, patient received monoclonal antibody infusion. Received Baricitinib on 07/28. Transferred to the ICU on 08/02 and intubated presently remains intubated sedated and mechanically ventilated sedated, and he had to be paralyzed on 08/14 mostly because of his worsening hypoxia. Clinically unchanged. Chest x-ray findings are essentially unchanged. I reviewed the chest x-ray and the blood gases from today. No significant interval change. The patient is currently on a pressure control mode of mechanical ventilation this will be kept as the patient is adequately oxygenating and ventilating for now. The plan is to proceed with a tracheostomy tube insertion and a PEG tube insertion today. The patient is currently on a pressure control of 17, PEEP of 15 with an FiO2 of 80%. A chest x-ray and repeat blood gases will be done post tracheostomy tube insertion. 2 Possible underlying bacterial infection, based on an elevated glucose to Levaquin and the patient is currently on IV cefepime, completed the course of IV cefepime and the cultures of been all negative and a sputum sample is showing Haylee albicans. 3 Cardiomyopathy and LV dysfunction, ejection fraction of 40-45%. Patient has chronic systolic congestive heart failure. 4 Benign essential hypertension 5 History of alcohol abuse, in remission 6 History of PTSD 7 History of underlying coronary artery disease 8 Hypernatremia secondary to diuretics patient is receiving free water flushes. Sodium improved. Plan Continue ventilator support, pressure control mode of mechanical ventilation. proceed with PEG and trach today Will keep the patient sedated and paralyzed. We'll may consider giving him and paralytic holiday post tracheostomy and PEG tube insertion if things go well and the procedure is successful Continue Decadron Continue Lovenox, 40 mg q24 hours and a Doppler of the lower extremity was repeated and the numbers were negative IVF to KVO Start the patient on Lasix 40 mg IV every 24 hours The patient's inflammatory marker for tomorrow Enteral feeding for nutritional support Daily chest x-rays We'll continue to follow. Condition is obviously critical and poor outcome is anticipated or suspect in this patient based on his comorbidities. We'll continue to follow. Cardiac care evaluation, more than 30 minute Time with Patient: Greater than 30
[2021-08-18] MEDS ORDERED: IV FLUID CONTINUATION 1,000 ML IV ONE (10:00)
[2021-08-18] MEDS: PANTOPRAZOLE 40 MG/10 ML VIAL IVP SCH (11:25)
[2021-08-18] MEDS: FUROSEMIDE 10 MG/ML 4 ML VIAL IV SCH (11:25)
[2021-08-18] MEDS: DEXAMETHASONE SOD PHOSPHATE 10 MG/ML 1 ML VIAL IVP SCH (11:25)
[2021-08-18] MEDS: CHOLECALCIFEROL 25 MCG (1000 IU) TABLET PO SCH (11:26)
[2021-08-18] MEDS: CHLORHEXIDINE GLUCONATE 15 ML CUP MUCOUS MEM SCH ×2 (11:26→20:40)
[2021-08-18] MEDS: ZINC SULFATE 220 MG CAP PO SCH (11:26)
[2021-08-18] MEDS: ASCORBIC ACID 500 MG TAB PO SCH (11:26)
[2021-08-18 11:49] LABS: Glucose,Whole Blood 139 mg/dL (75-99)
[2021-08-18 11:55] LABS: ABG HCO3 36 mmol/L (21-25); ABG Oxygen Saturation 91.7 % (94-97); ABG PO2 87 mmHg (83-108); ABG TCO2 39 mmol/L (19-24); Allen Test Performed? Yes
[2021-08-18 11:59] LABS: ABG PCO2 106 mmHg (35-45); ABG PH 7.14 (7.35-7.45)
--- NOTE | 2021-08-18 12:24 | P.PN ---
Subjective Principal diagnosis: covid 19 pneumonia mechanically ventilated intubated Known diabetic, obesity, multiple risk factors , mechanically ventilated intubated PEEP of 18 , patient is in the intensive care unit room 266 Currently being paralyzed, Nimbex, sedated fentanyl and propofol . Hydrocortisone 50 mg every 6 hours was added yesterday Chest x-ray demonstrated diffuse bilateral infiltrates, CT angiogram negative for PE Objective - Vital Signs Vital signs: Vital Signs Temp 99.0 F 08/18/21 08:00 Pulse 94 08/18/21 11:30 Resp 32 H 08/18/21 11:30 BP 168/84 08/18/21 11:30 Pulse Ox 89 L 08/18/21 11:30 Intake & Output 08/17/21 08/18/21 08/18/21 18:59 06:59 18:59 Intake Total 2609.700 5114.644 391 Output Total 2915 600 40 Balance -1279.211 770.644 351 Weight 117.8 kg 117.8 kg Intake: IV 336 253 73 Sodium Chloride 0.9% 1, 300 220 20 000 ml @ 20 mls/hr IV . Q24H [facility] Rx#:[id number] pressure bag 36 33 3 Intake, IV Titration 961.789 829.644 300 Amount Cisatracurium 200 mg In 200.000 153.4 Sodium Chloride 0.9% 180 ml @ 1 MCG/KG/MIN 6.24 mls/hr IV .Q24H [facility] Rx#: [id number] Norepinephrine 8 mg In 164.604 117.701 Sodium Chloride 0.9% 250 ml @ 0.05 MCG/KG/MIN 10. 739 mls/hr IV .Q24H [facility] Rx#:[id number] fentaNYL (PF). 1,000 mcg 200 265.893 100 In Sodium Chloride 0.9% 80 ml @ 0.5 MCG/KG/HR 5.2 mls/hr IV .[id number] [facility] Rx#:[id number] propofoL 1,000 mg In 397.185 292.65 200 Empty Bag 1 bag @ Titrate IV .Q0M [facility] Rx#: [id number] Tube Feeding 248 198 18 Other 90 90 Output: Urine 2915 600 35 Estimated Blood Loss 5 Other: Voiding Method Indwelling Catheter Indwelling Catheter ABP, PAP, CO, CI - Last Documented Arterial Blood Pressure 141/66 - Exam General: Patient paralyzed and sedated intubated mechanically ventilated HEENT: [PERRL. EOMI. Neck: [No adenopathy.] Cardiac: [Heart regular in rate and rhythm. No S3. No S4. No clicks, rubs. No murmur. Lungs: Diffuse bilateral rhonchi bilateral crackles sounds equal but diminished O2 sats 95% Abdomen: [No mass. No organomegaly. Bowel sounds presnt and normoactive in all 4 quadrants. Extremes: [No edema no cyanosis no claudication normal pulses : Normal male genitalia Pickett catheter inserted Musculoskeletal: [No joint erythema, edema or tenderness. Skin: No rash. Neurologic: Patient paralyzed and sedated Lymphatic: No lymphadenopathy noted - Labs CBC & Chem 7: 08/18/21 04:10 08/18/21 04:10 Labs: Abnormal Lab Results - Last 24 Hours (Table) 08/17/21 08/17/21 08/17/21 Range/Units 13:17 17:13 23:56 RBC (4.30-5.90) m/uL Hgb (13.0-17.5) gm/dL Hct (39.0-53.0) % MCV (80.0-100.0) fL ABG pH (7.35-7.45) ABG pCO2 67 H (35-45) mmHg ABG pO2 62 L (83-108) mmHg ABG HCO3 39 H (21-25) mmol/L ABG Total CO2 41 H (19-24) mmol/L ABG O2 Saturation 90.8 L (94-97) % Carbon Dioxide (22-30) mmol/L BUN (9-20) mg/dL Creatinine (0.66-1.25) mg/dL Glucose (74-99) mg/dL POC Glucose (mg/dL) 168 H 125 H (75-99) mg/dL Calcium (8.4-10.2) mg/dL 08/18/21 08/18/21 08/18/21 Range/Units 04:10 04:10 05:57 RBC 2.87 L (4.30-5.90) m/uL Hgb 9.5 L D (13.0-17.5) gm/dL Hct 29.5 L (39.0-53.0) % MCV 102.7 H (80.0-100.0) fL ABG pH 7.50 H (7.35-7.45) ABG pCO2 49 H (35-45) mmHg ABG pO2 (83-108) mmHg ABG HCO3 38 H (21-25) mmol/L ABG Total CO2 40 H (19-24) mmol/L ABG O2 Saturation (94-97) % Carbon Dioxide 36 H (22-30) mmol/L BUN 23 H (9-20) mg/dL Creatinine 0.47 L (0.66-1.25) mg/dL Glucose 126 H (74-99) mg/dL POC Glucose (mg/dL) (75-99) mg/dL Calcium 8.0 L (8.4-10.2) mg/dL 08/18/21 08/18/21 08/18/21 Range/Units 06:07 11:40 11:48 RBC (4.30-5.90) m/uL Hgb (13.0-17.5) gm/dL Hct (39.0-53.0) % MCV (80.0-100.0) fL ABG pH 7.14 L* (7.35-7.45) ABG pCO2 106 H* (35-45) mmHg ABG pO2 (83-108) mmHg ABG HCO3 36 H (21-25) mmol/L ABG Total CO2 39 H (19-24) mmol/L ABG O2 Saturation 91.7 L (94-97) % Carbon Dioxide (22-30) mmol/L BUN (9-20) mg/dL Creatinine (0.66-1.25) mg/dL Glucose (74-99) mg/dL POC Glucose (mg/dL) 112 H 139 H (75-99) mg/dL Calcium (8.4-10.2) mg/dL Assessment and Plan (1) CAD (coronary artery disease) Current Visit: Yes Status: Acute Code(s): I25.10 - ATHSCL HEART DISEASE OF [place] CORONARY ARTERY W/O ANG PCTRS SNOMED Code(s): 23437356 (2) COVID-19 Current Visit: Yes Status: Acute Code(s): U07.1 - COVID-19 SNOMED Code(s): 263071286 (3) Chronic systolic (congestive) heart failure Current Visit: Yes Status: Acute Code(s): I50.22 - CHRONIC SYSTOLIC (C ONGESTIVE) HEART FAILURE SNOMED Code(s): 138847049 (4) Essential (primary) hypertension Current Visit: Yes Status: Acute Code(s): I10 - ESSENTIAL (PRIMARY) HYPERTENSION SNOMED Code(s): 13013538 (5) penitentiary (current) use of opiate analgesic Current Visit: Yes Status: Acute Code(s): Z79.891 - RESIDENTIAL (CURRENT) USE OF OPIATE ANALGESIC SNOMED Code(s): 817051172 (6) Pneumonia Current Visit: Yes Status: Acute Code(s): J18.9 - PNEUMONIA, UNSPECIFIED ORGANISM SNOMED Code(s): 781095384 (7) Cardiomyopathy Current Visit: No Status: Acute Code(s): I42.9 - CARDIOMYOPATHY, UNSPECIFIED SNOMED Code(s): 45911325 (8) Daily consumption of alcohol Current Visit: No Status: Acute Code(s): Z78.9 - OTHER SPECIFIED HEALTH STATUS SNOMED Code(s): 161849212 Plan: Intubated and mechanically ventilated ARDS secondary to covid 19 pneumonia Cardiomyopathy Heart failure Hypertension Type 2 diabetes Patient was not vaccinated for SARS Covid 19 Prognosis critical Time with Patient: Greater than 30
--- NOTE | 2021-08-18 12:42 | XR ---
EXAMINATION TYPE: XR chest 1V DATE OF EXAM: 08/18/2021 12:31 PM COMPARISON:Multiple radiographs, with the most recent on 08/17/2021 CLINICAL INDICATION:Male, 65 years old with history of hypoxia; TECHNIQUE: Frontal view of the chest. FINDINGS: Lungs/Pleura: Similar multifocal airspace opacities. No evidence of pneumothorax or pleural effusion. Pulmonary vascularity: Pulmonary vascular congestion. Heart/mediastinum: Cardiomediastinal silhouette is partially obscured due to overlying and adjacent o pacities. Musculoskeletal: No acute osseous pathology. Lines/Tubes: Interval removal of endotracheal tube and nasogastric tube with interval placement of tracheostomy ca nnula tip projecting over aphakia. This does not represent a distal tip is approximately 1.2 cm above the giovani. Right PICC line with tip at the superior cavoatrial junction. IMPRESSION: 1. Interval placement of tracheostomy cannula 1.2 cm above the giovani. Consider retraction of 2 to 3 cm for optimal placement. 2. Similar multifocal airspace disease.
[2021-08-18 13:14] LABS: ABG Base Excess 10.6 mmol/L; ABG HCO3 38 mmol/L (21-25); ABG PH 7.23 (7.35-7.45); ABG PO2 64 mmHg (83-108); ABG TCO2 41 mmol/L (19-24)
[2021-08-18 13:15] LABS: ABG PCO2 91 mmHg (35-45); Allen Test Performed? no
[2021-08-18] MEDS: SODIUM CHLORIDE 0.9% 500 ML 500 ML IV SCH (15:06)
[2021-08-18 17:40] LABS: Glucose,Whole Blood 142 mg/dL (75-99)
[2021-08-18] MEDS: ATORVASTATIN 40 MG TAB PO SCH (17:56)
[2021-08-18] MEDS: NOREPINEPHRINE 8 MG in SODIUM CHLORIDE 0.9% 250 ML IV SCH (18:11)
[2021-08-19] MEDS: INSULIN ASPART (NovoLOG) 100 UNIT/ML VIAL SQ SCH ×5 (00:04→23:24)
[2021-08-19] MEDS: ARTIFICIAL TEARS-HYPROMELLOSE DROPS 15 ML BTL BOTH EYES SCH ×7 (00:04→23:26)
[2021-08-19 00:05] LABS: Glucose,Whole Blood 97 mg/dL (75-99)
[2021-08-19] MEDS: fentaNYL (PF). 1,000 MCG in SODIUM CHLORIDE 0.9% 80 ML IV SCH ×6 (00:58→23:26)
--- NOTE | 2021-08-19 01:21 | XR ---
EXAMINATION TYPE: XR chest 1V portable DATE OF EXAM: 08/19/2021 COMPARISON: Yesterday HISTORY: Hypoxemia TECHNIQUE: Single view FINDINGS: There is pulmonary interstitial and airspace edema. There is tracheostomy tube. Heart size is normal. There are chest leads. IMPRESSION: Moderate pulmonary edema which is consistent with RDS and not changed compared to yesterd ay.
[2021-08-19] MEDS: CISATRACURIUM 200 MG in SODIUM CHLORIDE 0.9% 180 ML IV SCH ×4 (04:13→21:11)
[2021-08-19 04:50] LABS: HGB 9.5 gm/dL (13.0-17.5); Hypochromasia Slight; MCH 33.3 pg (25.0-35.0); MCHC 32.7 g/dL (31.0-37.0); MCV 101.7 fL (80.0-100.0); Macrocytosis Slight; Mean Platelet Volume 7.8; Platelet Count 318 k/uL (150-450); Poikilocytosis Slight; RBC 2.86 m/uL (4.30-5.90); RDW 14.5 % (11.5-15.5); WBC 8.7 k/uL (3.8-10.6)
[2021-08-19 04:55] LABS: African American GFR (CKD) >90 (>60 ml/min/1.73 sqM); Anion Gap 4 mmol/L; Blood Urea Nitrogen 25 mg/dL (9-20); Carbon Dioxide 36 mmol/L (22-30); Chloride 103 mmol/L (98-107); Glucose 91 mg/dL (74-99); Non-African American GFR(CKD) >90 (>60 ml/min/1.73 sqM); Potassium 3.4 mmol/L (3.5-5.1); Sodium 143 mmol/L (137-145)
[2021-08-19 05:42] LABS: Glucose,Whole Blood 81 mg/dL (75-99)
[2021-08-19] MEDS: POTASSIUM CHLORIDE 10 MEQ in WATER FOR INJECTION 1 100ML.BAG IVPB SCH ×4 (05:45→08:57)
[2021-08-19 06:14] LABS: ABG Base Excess 14.7 mmol/L; ABG HCO3 37 mmol/L (21-25); ABG Oxygen Saturation 95.1 % (94-97); ABG PCO2 39 mmHg (35-45); ABG PO2 68 mmHg (83-108); ABG TCO2 38 mmol/L (19-24); Allen Test Performed? Yes
[2021-08-19 06:16] LABS: ABG PH 7.58 (7.35-7.45)
--- NOTE | 2021-08-19 08:46 | P.PN ---
Subjective Progress Note Date: 08/19/21 Acute hypoxic respiratory failure secondary to COVID-19 pneumonia On 08/09/2021 patient is seen in follow-up in the intensive care unit, he remains intubated, sedated and paralyzed on assist-control mode of ventilation, with a rate of 36, tidal labs 450, FiO2 of 60% and PEEP of 18, this morning's blood gas was reviewed showing pO2 of 80, pCO2 of 50, and pH of 7.41, and this was done on FiO2 of 60%. Today's chest x-ray has been reviewed showing bilateral airspace disease, interstitial prominence, no evidence of pneumothorax subpleural effusion, endotracheal tube, NG tube, left subclavian central venous catheter are in appropriate positions. Patient is currently on Nimbex at 2 mics per kilo per minute, he is on Diprivan at 40 mics per kilo per minute, 0.9 at a rate of 75 ML per hour, fentanyl at 1.5 mics per kilo per minute. He is still requiring vasopressor support, and he is on norepinephrine at 0.12 mics per kilo per minute. Vasopressor requirements have remained stable over the last 24 hours, urine output is adequate, the order of 75-100 ML per hour. Patient is being treated for COVID-19 pneumonia with severe hypoxic respiratory failure. He continues on Decadron, Lasix has been discontinued, Baricitinib was placed on hold, she continues on cefepime for empiric antibiotic coverage. He is on prophylactic dose of Lovenox 40 mg daily Blood and sputum cultures have been reviewed, sputum culture only showed Haylee albicans. His labs have been reviewed, his white blood cell count is improving and is down to 14.5 on today's labs, hemoglobin is 12.3, pro-calcitonin level is 0.32 on today's labs, improved over last couple of days. Serum sodium is 148, potassium is 4.5, chloride is 112, CO2 is 32, BUN is 38, creatinine 0.65, his AST is 121 and ALT is 112, slightly improved, alk phos is remains within normal limits at 98, his inflammatory markers are improving and LDH is down to 1032, and CRP is 18.4 on today's labs. Patient's serum sodium has increased, patient is receiving free water flushes with 200 mL every 6 hours, and he is tolerating his tube feedings of vital high-protein at a rate of 37 mL per hour. His urine output is adequate the order of 75-100 ML per hour, renal profile remains relatively stable, with BUN of 38, and creatinine is within normal limits at 0.65. Reevaluated today on 08/10/2021 patient remains in the ICU, intubated and mechanically ventilated. Patient is presently on assist control rate of 36 tidal volume 450 FiO2 60% PEEP was 18 and I cut it down to 16. Continues to have relatively elevated plateau pressure of 31. ABG showed a pO2 of 68 pCO2 49 pH of 7.42. Patient remains on multiple drips including propofol 40 norepinephr ine 0.1 Nimbex at 1.5 and fentanyl at 1 mcg/kg per hour. Patient is on vital 1.2. W scan is 10.9 hemoglobin 11.5 electrolytes are normal BUN is normal creatinine is normal considering the sodium is high at 148 I recommended increasing free water via orogastric tube to 100 mL every 4 hours. Chest x-ray is showing slight improvement, nonetheless continues to show bilateral infiltrates consistent with severe case of COVID-19 pneumonia. Patient remains on the COVID-19 cocktail. Remains on cefepime empirically. Remains on Decadron 6 mg IV push daily, Lovenox 40 mg subcu daily Protonix 40 mg IV push daily and multivitamins. Reevaluated today on 08/11/21, patient remains in the ICU, intubated and mechanically ventilated. Presently on assist control rate of 36 tidal volume 450 FiO2 60% PEEP is at 16, ABG showed a pO2 of 65 pCO2 47 pH of 7.42, hence no changes were made in the ventilator settings today. Patient remains on Nimbex to microgram per kilo per minute norepinephrine 0.07 mcg/kg/m fentanyl at 1.5 mcg/kg/h and propofol 40 mcg/kg/m. Remains on enteral feeding. Chest x-ray co ntinues show bilateral infiltrates consistent with COVID-19 pneumonia and the patient seems to have some component of ARDS. Continues to have relatively high plateau pressures. At least he got is 14 hemoglobin is 11. Sodium is high at 149 however his free water flushes were increased to 200 mL every 4 hours. LDH today is 1059. C-reactive protein is 5.4. Minimal improvement noted but nonetheless LDH seems to be trending down a bit. Reevaluated today on 08/12/21, patient remains intubated and mechanically ventilated in the ICU. He is on assist control rate of 36 tidal volume 450 FiO2 60% PEEP is 16 ABG showed a pO2 of 85 pCO2 46 pH of 7.42 hence I cut down his FiO2 to 55% and kept him on the same ventilator settings otherwise. Patient is on propofol at 50 mcg/kg/m norepinephrine 0.04 Nimbex at 3 mcg/kg/m and fentanyl at 1.5 mcg/kg/h. Patient is receiving enteral feeding vital AF at goal. His WBC is 14.7 hemoglobin is 10.7 otherwise the labs are basically unremarkable. Chest x-ray continues show bilateral infiltrates, slight improvement if any but definitely not getting any worse. Patient remains on the COVID-19 cocktail remains on cefepime. He is on Lovenox 40 mg subcu daily insulin Protonix 40 mg IV push daily and he is receiving zinc. Reevaluated today on 08/13/21, patient remains in the ICU, intubated and mechanically ventilated. He is on assist control rate 36, tidal volume 450 FiO2 65% PEEP is 16. ABG is marginal with a pO2 of 73 pCO2 of 49 pH of 7.39 his O2 saturation is marginal hence no changes were made on the ventilator settings. Kept him on a PEEP of 16, may consider tapering her FiO2 down to 60%. Patient remains on Nimbex at 4 propofol at 50 mcg/kg/m and fentanyl 20 mcg/kg/h. Asked x-ray is not showing much of a change, it is showing multifocal infiltrates and ARDS type picture. Patient continues to have relatively high peak airway press ure and plateau pressures. Electrolytes are normal renal profile is normal WBC count is 13.8 hemoglobin is 10.1. Remains on albuterol, ascorbic acid, aspirin, Lipitor, cefepime Peridex, vitamin D, Decadron 6 mg of the push daily, Lovenox 40 mg subcu daily, insulin, intermittently on norepinephrine, but presently is off norepinephrine. Protonix 40 mg IV push daily, and he is also on zinc daily. Reevaluated today on 08/14/21, patient remains in the ICU, intubated and mechanically ventilated. Remains on assist control rate of 36, FiO2 of 80% today a to the patient desaturated and her FiO2 had to be increased last night. He is on PEEP of 16, chest x-ray is showing slightly worsening bilateral infiltrates. Patient remains sedated but not paralyzed over the last 24 hours, however considering his worsening oxygenation I recommended that we go back on Nimbex in addition to propofol at 60 and fentanyl at 2 mcg/kg/h. Patient is hemodynamically stable, not requiring any pressors. ABG this morning on 80% showed a pO2 of 73 pCO2 of 35 pH of 7.42. Again his chest x-ray is showing a worsening picture of his bilateral infiltrates. WBC count today is 13.8 hemoglobin is 10.1. Basic metabolic profile is relatively normal. Patient remains on enteral feeding. Via orogastric tube. Remains on the same medications as listed above. And he is empirically on cefepime. Reevaluated today on 08/15/21, patient remains in the ICU, intubated and mechanically ventilated. Patient is on assist control rate of 36 tidal volume 450 FiO2 70% PEEP of 16 ABG showed a pO2 of 101 pCO2 44 pH of 7.44. Patient remains sedated and paralyzed, he is on Nimbex at 2 mcg/kg/m fentanyl 2 mcg/kg/h he is also on propofol at 50 mcg/kg/m, required norepinephrine at 0.06 mcg/kg/m he is on vital AF at 25 mL per hour. Not much of any improvement I have noticed in the last 5 days on this patient. His chest x-ray is basically about the same. His ventilatory status is basically about the same, attempted higher PEEP did not seem to improve much, attempted prone position today, and the patient actually became worse, he desaturated after few hours in a prone position, hence I had to place patient back in supine position. I believe the patient is demonstrating no improvement whatsoever, and his chest x-ray is also showing lateral infiltrates, and suspect significant component of ARDS, continues to have high peak airway pressure and high plateau pressures. D-dimer today is up to 3.86, and recommended increasing Lovenox to 40 mg subcu twice a day. His WBC count is 12.2 hemoglobin is 9.9 electrolytes showed low potassium of 3.1, renal profile is normal. 08/16/2021, the patient remains intubated on a mechanical ventilator. On today's evaluation, the patient is sedated with propofol which is running at 50 mcg/kg per minute and the patient is also on fentanyl at 2 mcg/kg/h and index is at 2 mcg/kg per minute. He is adequately sedated and paralyzed. He remains interested mechanical ventilator at the rate of 36 with a tidal volume of 450 and FiO2 of 70% with a PEEP of 16. The chest x-ray from today is showing diffuse bilateral pulmonary infiltrates lot of nodularity in the upper lobes bi laterally more so on the right ET tube is in a good location and the patient has an orogastric tube in place and the PICC line in the right upper extremity. No other significant changes are seen compared to yesterday's chest film. The blood gases from today showing a pH of 7.45 with a pCO2 of 46 and pO2 of 67. Inflammatory markers on this patient have not been checked recently. Nevertheless, the most recent evaluations showed an LDH level of 1014 from 08/12/2021 and the CRP level was 4.3. He is afebrile. Hemodynamically, he is still requiring low-dose pressors and the patient is on norepinephrine infusion running at 0.06 mcg/kg per minute. IV fluids are running at the rate of 20 disease and hour and overall fluid balance on this patient has been -1.5 L for today and -2.3 L 4 yesterday. The patient is receiving IV Lasix 40 mg to 12 hours. The patient's pro calcitonin level was at 0.32. He is on no antibiotic coverage. Cultures have been essentially negative with exception of Haylee albicans in the sputum. The patient remains on Decadron and the patient has been on IV cefepime since 08/03/2021. Enterofeeding is to or GE and the patient is receiving vital AF at the rate of 31 mL an hour. In terms of the rest of the blood work, the patient has normal electrolytes, potassium level is at 3.1, BUN is 26 with a creatinine of 0.6, electrolytes are all within normal limits. The patient remains on Decadron 6 mg daily 24 hours. The patient is also on Lovenox 40 mg subcu every 24 hours. The d-dimer from 08/15/2021 was 3.86. Doppler of the lower extremity done yesterday was negative for DVT. 08/17/2021, the patient is being seen for a follow-up in the intensive care unit. The patient remains intubated on a mechanical ventilator. The patient is currently on a combination of propofol and fentanyl. Propofol is running at 55 Dank respiratory kilo gram per minute and fentanyl is running at 2 mcg/kg/h. Patient is also Nimbex running at 2.5 mcg/kg per minute. On today's evaluation, the patient remains on a mechanical ventilator assist control mode at the rate of 36, tidal volumes of 450, FiO2 currently is at 60% with a PEEP of 15. Peak airway pressure is 31. The chest x-ray from today showing diffuse bilateral pulmonary infiltrates and ET tube is in a good location. There is no acute abnormalities. Findings and essentially consistent with Coumadin therapy related to pneumonia with stable bilateral carotid pulmonary infiltrates which remain essentially unchanged. Blood gases from today shows a pH of 7.37 with a pCO2 of 62 and pO2 of 58 and as such, there is not a lot of room for further weaning this patient. The patient also has a PICC line in his right upper extremity. OG tube is in a good location. No evidence of any pneumothorax. In terms of COVID 19 therapy, the patient remains on treatment with Decadron at 6 mg IV every 24 hours. The patient is also on anticoagulation. He is receiving Lovenox 40 mg subcu on a daily basis. Blood sugars controlled with Levemir insulin 15 units at bedtime in addition to his vascular coverage. The patient is receiving 40 mg of Lasix IV on a daily basis. Overall fluid balance has been -1.5 L over the past 24 hours. No signs of any significant fluid overload. In terms of microbiology, the patient has Haylee albicans in the sputum. Rest of the cultures came back all negative. No antibiotic coverage. At this point in time. The patient has a normal renal function, normal electrolytes, LDH level is down to 977 and CRP level is at 7.3. Most recent d-dimer is at 2.62. 08/18/2021, the patient is still a mechanical ventilator, sedated, paralyzed, on a pressure control mode of mechanical ventilation. The plan for today is to proceed with a tracheostomy tube insertion of a PEG tube insertion and this will be done by general surgery. For now, the patient is on propofol which is running at 50 mcg/kg per minute. Fentanyl is running at 2 mcg/kg/h and the patient is also paralyzed with Nimbex at 2.5 mcg/kg per minute. He is on a mechanical ventilator. He is on pressure control at a pressure control of 70 cm of water with a rate of 28, FiO2 of 80% and a PEEP of 15. Chest x-ray shows no interval change and the patient had diffuse bilateral pulmonary infiltrates. The patient's peak airway pressures 33. Static airway pressures around 30. The blood gases from today shows a pH of 7.50 with a pCO2 of 48 and pO2 of 92. The patient has COVID 19 related pneumonia with ongoing but the pulmonary infiltrates/ARDS. In terms of therapy, the patient remains on Decadron 6 mg IV every 24 hours. He is also on Lovenox for DVT prophylaxis for evidence of degenerative daily basis. He is receiving Lasix 40 mg IV on a daily basis. His inflammatory markers were essentially down trending in the most recent LDH level was down to 977. Rest of the labs were reviewed. No other significant abnormalities noted. The patient remains on Levemir insulin for blood sugar control which is at 15 units along with a sliding scale NovoLog coverage.On his blood work, the white cell count was at 9 with a hemoglobin of 9.9, sodium was 142 with a bicarb of 36, yet is 23 with a creatinine of 0.4. Cultures of been all negative with exception of Haylee in the sputum. Blood sugar is adequate control for now. His overall fluid balance is positive for 180 mL over the past 24 hours. 08/19/2021, the patient is post PEG tube insertion a tracheostomy tube insertion. This morning, the patient remains sedated and paralyzed. The patient remains on propofol running at 55 mcg/kg per minute and the patient is also on fentanyl running at 2 mcg/kg/h. The patient remains paralyzed with Nimbex at 4.5 mcg/kg per minute. Note that the patient has a Bivona tracheostomy tube. The chest x-ray from today shows adequate positioning of the tracheostomy tube. The lungs are well expanded. There is no evidence of pneumothorax. There is diffuse bilateral pulmonary infiltrates with some in terval improvement of infiltrates on the left compared to the earlier chest x- rays. The patient remains on a pressure control mode of mechanical ventilation. Currently he is at the rate of 30, FiO2 is at 90%, PEEP is at 15 and a pressure control is currently at 17. His inspiratory time is at 1 second. His inspiratory expiratory ratio is 1-1.2. The blood gases showed a pH of 7.58 with a pCO2 of 39 and pO2 of 68. Meanwhile, the patient's saturation on the monitor the 97%. He is hemodynamically stable. The tracheostomy stoma site is clean. No evidence of any bleeding. D-dimer is at 2.7. Inflammatory markers have not been checked today. His most recent LDH level was 977 with a CRP of 7.3. Presented to the blood work essentially stable. Hemoglobin stable at 9.5, white cell count is stable at 8.7. The patient has a BUN of 25 mg creatinine of 0.4 and sodium level of 143. He remains on Levemir insulin for blood sugar control and the patient is receiving Levemir insulin 15 units in addition to a sliding scale coverage. He is receiving daily dose of Lasix 40 mg IV and the patient's fluid balance is been -300 mL over the past 24 hours. The patient remains on Decadron 6 mg IV every 24 hours. He remains on Lovenox 40 mg subcu for DVT prophylaxis. He remains on a multivitamin cocktail regarding COVID 19 related pneumonia. Objective - Vital Signs Vital signs: Vital Signs Temp 99.2 F 08/19/21 04:00 Pulse 89 08/19/21 07:00 Resp 30 H 08/19/21 07:00 BP 118/79 08/19/21 05:30 Pulse Ox 95 08/19/21 07:00 Intake & Output 08/18/21 08/19/21 08/19/21 18:59 06:59 18:59 Intake Total 4233.197 0539.954 203 Output Total 2260 615 45 Balance -865.155 582.954 158 Weight 116 kg Intake: IV 349 333 103 Potassium Chloride 10 meq 100 100 In Water For Injection 1 100ml.bag @ 100 mls/hr IVPB Q1HR [facility] Rx#: [id number] Sodium Chloride 0.9% 1, 260 200 000 ml @ 20 mls/hr IV . Q24H [facility] Rx#:[id number] pressure bag 39 33 3 Intake, IV Titration 1027.845 864.954 100 Amount Cisatracurium 200 mg In 200 200.000 Sodium Chloride 0.9% 180 ml @ 1 MCG/KG/MIN 6.24 mls/hr IV .Q24H [facility] Rx#: [id number] Norepinephrine 8 mg In 140.299 108.360 Sodium Chloride 0.9% 250 ml @ 0.05 MCG/KG/MIN 10. 739 mls/hr IV .Q24H [facility] Rx#:[id number] fentaNYL (PF). 1,000 mcg 287.546 185.973 In Sodium Chloride 0.9% 80 ml @ 0.5 MCG/KG/HR 5.2 mls/hr IV .[id number] [facility] Rx#:[id number] propofoL 1,000 mg In 400 370.621 100 Empty Bag 1 bag @ Titrate IV .Q0M [facility] Rx#: [id number] Tube Feeding 18 Output: Urine 2255 615 45 Estimated Blood Loss 5 Other: Voiding Method Indwelling Catheter Indwelling Catheter ABP, PAP, CO, CI - Last Documented Arterial Blood Pressure 116/58 - Exam Physical Exam revealed 65-year-old white male has a Bivona tracheostomy tube in place. The patient remains ventilated and sedated , on Nimbex, propofol and fentanyl. Head: Atraumatic, normocephalic. Endotracheal tube and orogastric tube are intact. HEENT:[Neck is supple.] [No neck masses.] [No thyromegaly.] [No JVD.]. The tracheostomy site was dry clean and intact. No evidence of any bleeding. Chest: [Crackles persist at the bases. Persist. Cardiac Exam: [Normal S1 and S2, no S3 gallop, no murmur.] Abdomen: [Soft, nontender, no megaly, no rebound, no guarding, normal bowel sounds.] The patient has a PEG tube which is currently intact and enteral feeding to be initiated. No evidence of bleeding around the PEG tube. Abdomen slightly distended. Bowel sounds are hypoactive. Extremities: [No clubbing, trace of bipedal edema., no cyanosis.] Neurological Exam: Could not assess, patient is fully sedated Psychiatric: Could not be assessed patient is fully sedated - Labs CBC & Chem 7: 08/19/21 04:20 08/19/21 04:20 Labs: Abnormal Lab Results - Last 24 Hours (Table) 08/18/21 08/18/21 08/18/21 Range/Units 11:40 11:48 13:12 RBC (4.30-5.90) m/uL Hgb (13.0-17.5) gm/dL Hct (39.0-53.0) % MCV (80.0-100.0) fL D-Dimer (<0.60) mg/L FEU ABG pH 7.14 L* 7.23 L (7.35-7.45) ABG pCO2 106 H* 91 H* (35-45) mmHg ABG pO2 64 L (83-108) mmHg ABG HCO3 36 H 38 H (21-25) mmol/L ABG Total CO2 39 H 41 H (19-24) mmol/L ABG O2 Saturation 91.7 L 86.0 L (94-97) % Potassium (3.5-5.1) mmol/L Carbon Dioxide (22-30) mmol/L BUN (9-20) mg/dL Creatinine (0.66-1.25) mg/dL POC Glucose (mg/dL) 139 H (75-99) mg/dL Calcium (8.4-10.2) mg/dL 08/18/21 08/19/21 08/19/21 Range/Units 17:38 04:20 04:20 RBC 2.86 L (4.30-5.90) m/uL Hgb 9.5 L (13.0-17.5) gm/dL Hct 29.0 L (39.0-53.0) % MCV 101.7 H (80.0-100.0) fL D-Dimer (<0.60) mg/L FEU ABG pH (7.35-7.45) ABG pCO2 (35-45) mmHg ABG pO2 (83-108) mmHg ABG HCO3 (21-25) mmol/L ABG Total CO2 (19-24) mmol/L ABG O2 Saturation (94-97) % Potassium 3.4 L (3.5-5.1) mmol/L Carbon Dioxide 36 H (22-30) mmol/L BUN 25 H (9-20) mg/dL Creatinine 0.45 L (0.66-1.25) mg/dL POC Glucose (mg/dL) 142 H (75-99) mg/dL Calcium 8.0 L (8.4-10.2) mg/dL 08/19/21 08/19/21 Range/Units 04:20 06:11 RBC (4.30-5.90) m/uL Hgb (13.0-17.5) gm/dL Hct (39.0-53.0) % MCV (80.0-100.0) fL D-Dimer 2.73 H (<0.60) mg/L FEU ABG pH 7.58 H* (7.35-7.45) ABG pCO2 (35-45) mmHg ABG pO2 68 L (83-108) mmHg ABG HCO3 37 H (21-25) mmol/L ABG Total CO2 38 H (19-24) mmol/L ABG O2 Saturation (94-97) % Potassium (3.5-5.1) mmol/L Carbon Dioxide (22-30) mmol/L BUN (9-20) mg/dL Creatinine (0.66-1.25) mg/dL POC Glucose (mg/dL) (75-99) mg/dL Calcium (8.4-10.2) mg/dL Assessment and Plan Plan: 1 Acute hypoxic respiratory failure secondary to COVID-19 pneumonia, patient is not vaccinated. His symptoms started on 07/24/21, patient received monoclonal antibody infusion. Received Baricitinib on 07/28. Transferred to the ICU on 08/02 and intubated presently remains intubated sedated and mechanically ventilated sedated, and he had to be paralyzed on 08/14 mostly because of his worsening hypoxia. Due to very slow recovery, the patient underwent a tracheostomy tube insertion on 08/18/2021. Currently is on a pressure control mode of mechanical ventilation. Chest x-ray was noted. Blood gases was noted. This is a ventilator changes were done. The patient became sedated and paralyzed for another 24 hours. I made some adjustments on the mechanical ventilator for now. There may be some limited improvement of bilateral pulmonary infiltrates as noted. He remains on Decadron. He remains on Lovenox. He remains a multivitamin cocktail regarding community related pneumonia. I believe he is in the ARDS phase post viral pneumonia. 2 acute COVID 19 related pneumonia 3 Cardiomyopathy and LV dysfunction, ejection fraction of 40-45%. Patient has chronic systolic congestive heart failure. 4 Benign essential hypertension 5 History of alcohol abuse, in remission 6 History of PTSD 7 History of underlying coronary artery disease 8 Hypernatremia secondary to diuretics patient is receiving free water flushes. Sodium improved. 9 activity insertion for enteral feeding and nutritional support Plan Continue ventilator support, pressure control mode of mechanical ventilation. Drop the respiratory rate of the 28, that the FiO2 down to 80% and gradually wean the FiO2 down to maintain a saturation above 90% proceed with PEGfeeding for today Will keep the patient sedated and paralyzed. Continue Decadron Continue Lovenox, 40 mg q24 hours and a Doppler of the lower extremity was repeated and the numbers were negative IVF to KVO Start the patient on Lasix 40 mg IV every 24 hours The patient's inflammatory marker for tomorrow Enteral feeding for nutritional support Daily chest x-rays We'll continue to follow. Condition is obviously critical and poor outcome is anticipated or suspect in this patient based on his comorbidities. We'll continue to follow. Cardiac care evaluation, more than 30 minute Time with Patient: Greater than 30
[2021-08-19] MEDS: ALBUTEROL HFA INHALER INHALATION PRN ×3 (08:53→16:13)
[2021-08-19] MEDS: ZINC SULFATE 220 MG CAP PO SCH (08:58)
[2021-08-19] MEDS: PANTOPRAZOLE 40 MG/10 ML VIAL IVP SCH (08:58)
[2021-08-19] MEDS: FUROSEMIDE 10 MG/ML 4 ML VIAL IV SCH (08:58)
[2021-08-19] MEDS: DEXAMETHASONE SOD PHOSPHATE 10 MG/ML 1 ML VIAL IVP SCH (08:58)
[2021-08-19] MEDS: CHLORHEXIDINE GLUCONATE 15 ML CUP MUCOUS MEM SCH ×2 (08:58→20:27)
[2021-08-19] MEDS: ASCORBIC ACID 500 MG TAB PO SCH (08:58)
[2021-08-19] MEDS: CHOLECALCIFEROL 25 MCG (1000 IU) TABLET PO SCH (08:58)
--- NOTE | 2021-08-19 11:11 | P.PN ---
Progress Note - Text Progress Note Date: 08/19/21 Patient with tracheostomy and PEG tube placement yesterday. On exam her vital signs are stable. Trach site is clean. PEG site is clean. Patient will continue receive supportive care.
--- NOTE | 2021-08-19 11:14 | P.OP ---
Date of Procedure: 08/18/21 Preoperative Diagnosis: Respiratory failure Malnutrition Postoperative Diagnosis: Respiratory failure. Malnutrition Procedure(s) Performed: Tracheostomy tube PEG tube Anesthesia: MEL Surgeon: Rc Purdy Estimated Blood Loss (ml): 5 Pathology: none sent Condition: stable Description of Procedure: The patient's placed on the bed in the supine position. The patient received general anesthesia. The neck was prepped and draped in usual sterile fashion. A standard transverse skin incision was made approximately 2 cm above the sternal notch. Using electrocautery the subcutaneous tissues were divided. The platysma was divided. A Wheatlander retractor was placed in the wound. Next the strap muscles were divided in the midline. Another weatlander retractor was placed the wound. The pretracheal fat was then divided with left cautery. The trachea was exposed. At this point the [employer] advance the and the tracheal tube into the right mainstem bronchus. The balloon was inflated. A tracheotomy was then performed between the second and third tracheal rings. The perivascular tissues a gracilis the trachea. The endotracheal tube was brought back under direct vision. And then the #8 Portex tracheostomy tube was placed into the trachea. End-tidal CO2 was confirmed. The patient had been connected to the ventilator. The patient was ventilated satisfactory. The skin incision site was then closed with 3-0 nylon after the retractors were withdrawn. An umbilical tie was used to secure the tracheostomy tube. Next the gastroscope placed oropharynx passed in the esophagus and stomach. There is no evidence of any outlet obstruction. Stomach was insufflated with air. The light reflux seen the anterior abdominal wall. The abdomen was prepped and draped usual fashion. The skin was incised. And the needles placed and stomach under direct visualization. The needle was snared. And the wires placed through the needle and the wire was snared and brought the oropharynx. The PEG tube was placed over top the wire brought down to the stomach. The PEG tube was secured. At the 3 cm che. The one-piece bolster was used. Patient tolerated procedure well.
[2021-08-19 12:45] LABS: Glucose,Whole Blood 93 mg/dL (75-99)
[2021-08-19] MEDS: INSULIN DETEMIR (LEVEMIR) 100 UNIT/ML SYR SQ SCH (12:46)
[2021-08-19] MEDS: ATORVASTATIN 40 MG TAB PO SCH (14:17)
[2021-08-19] MEDS: ASPIRIN 81 MG PO SCH ×2 (14:17→20:27)
[2021-08-19] MEDS: ENOXAPARIN 40 MG/0.4 ML SYRINGE SQ SCH (14:17)
--- NOTE | 2021-08-19 16:04 | P.PN ---
Subjective Progress Note Date: 08/19/21 Principal diagnosis: covid 19 pneumonia mechanically ventilated intubated Known diabetic, obesity, multiple risk factors , mechanically ventilated, paralyzed, sedated intubated PEEP of 17 , patient is in the intensive care unit room 266 Currently being paralyzed, Nimbex, sedated fentanyl and propofol . Hydrocortisone 50 mg every 6 hours was added yesterday Chest x-ray demonstrated diffuse bilateral infiltrates, CT angiogram negative for PE, tracheostomy and PEG tube placed Tracheostomy and PEG tube placement yesterday Objective - Vital Signs Vital signs: Vital Signs Temp 99.9 F H 08/19/21 08:00 Pulse 89 08/19/21 11:00 Resp 28 H 08/19/21 11:00 BP 106/70 08/19/21 11:00 Pulse Ox 90 L 08/19/21 11:00 Intake & Output 08/18/21 08/19/21 08/19/21 18:59 06:59 18:59 Intake Total 4614.566 5278.954 623.393 Output Total 2260 615 45 Balance -865.155 582.954 578.393 Weight 116 kg Intake: IV 349 333 103 Potassium Chloride 10 meq 100 100 In Water For Injection 1 100ml.bag @ 100 mls/hr IVPB Q1HR [facility] Rx#: [id number] Sodium Chloride 0.9% 1, 260 200 000 ml @ 20 mls/hr IV . Q24H [facility] Rx#:[id number] pressure bag 39 33 3 Intake, IV Titration 1027.845 864.954 520.393 Amount Cisatracurium 200 mg In 200 200.000 133.38 Sodium Chloride 0.9% 180 ml @ 1 MCG/KG/MIN 6.24 mls/hr IV .Q24H [facility] Rx#: [id number] Norepinephrine 8 mg In 140.299 108.360 Sodium Chloride 0.9% 250 ml @ 0.05 MCG/KG/MIN 10. 739 mls/hr IV .Q24H [facility] Rx#:[id number] fentaNYL (PF). 1,000 mcg 287.546 185.973 187.013 In Sodium Chloride 0.9% 80 ml @ 0.5 MCG/KG/HR 5.2 mls/hr IV .[id number] [facility] Rx#:[id number] propofoL 1,000 mg In 400 370.621 200 Empty Bag 1 bag @ Titrate IV .Q0M COUNT INCLUDES THE [facility] Rx#: [id number] Tube Feeding 18 Output: Urine 2255 615 45 Estimated Blood Loss 5 Other: Voiding Method Indwelling Catheter Indwelling Catheter ABP, PAP, CO, CI - Last Documented Arterial Blood Pressure 101/52 - Exam General: Patient paralyzed and sedated intubated mechanically ventilated HEENT: [PERRL. EOMI. tracheostomy, PEG tube in place Neck: [No adenopathy.] Cardiac: [Heart regular in rate and rhythm. No S3. No S4. No clicks, rubs. No murmur. Lungs: Diffuse bilateral rhonchi bilateral crackles sounds equal but diminished O2 sats 95% Abdomen: [No mass. No organomegaly. Bowel sounds presnt and normoactive in all 4 quadrants. Extremes: [No edema no cyanosis no claudication normal pulses : Normal male genitalia Pickett catheter inserted Musculoskeletal: [No joint erythema, edema or tenderness. Skin: No rash. Neurologic: Patient paralyzed and sedated Lymphatic: No lymphadenopathy noted - Labs CBC & Chem 7: 08/19/21 04:20 08/19/21 04:20 Labs: Abnormal Lab Results - Last 24 Hours (Table) 08/18/21 08/19/21 08/19/21 Range/Units 17:38 04:20 04:20 RBC 2.86 L (4.30-5.90) m/uL Hgb 9.5 L (13.0-17.5) gm/dL Hct 29.0 L (39.0-53.0) % MCV 101.7 H (80.0-100.0) fL D-Dimer (<0.60) mg/L FEU ABG pH (7.35-7.45) ABG pO2 (83-108) mmHg ABG HCO3 (21-25) mmol/L ABG Total CO2 (19-24) mmol/L Potassium 3.4 L (3.5-5.1) mmol/L Carbon Dioxide 36 H (22-30) mmol/L BUN 25 H (9-20) mg/dL Creatinine 0.45 L (0.66-1.25) mg/dL POC Glucose (mg/dL) 142 H (75-99) mg/dL Calcium 8.0 L (8.4-10.2) mg/dL 08/19/21 08/19/21 Range/Units 04:20 06:11 RBC (4.30-5.90) m/uL Hgb (13.0-17.5) gm/dL Hct (39.0-53.0) % MCV (80.0-100.0) fL D-Dimer 2.73 H (<0.60) mg/L FEU ABG pH 7.58 H* (7.35-7.45) ABG pO2 68 L (83-108) mmHg ABG HCO3 37 H (21-25) mmol/L ABG Total CO2 38 H (19-24) mmol/L Potassium (3.5-5.1) mmol/L Carbon Dioxide (22-30) mmol/L BUN (9-20) mg/dL Creatinine (0.66-1.25) mg/dL POC Glucose (mg/dL) (75-99) mg/dL Calcium (8.4-10.2) mg/dL Assessment and Plan (1) CAD (coronary artery disease) Current Visit: Yes Status: Acute Code(s): I25.10 - ATHSCL HEART DISEASE OF [place] CORONARY ARTERY W/O ANG PCTRS SNOMED Code(s): 94646285 (2) COVID-19 Current Visit: Yes Status: Acute Code(s): U07.1 - COVID-19 SNOMED Code(s): 503876888 (3) Chronic systolic (congestive) heart failure Current Visit: Yes Status: Acute Code(s): I50.22 - CHRONIC SYSTOLIC (CONGESTIVE) HEART FAILURE SNOMED Code(s): 909063379 (4) Essential (primary) hypertension Current Visit: Yes Status: Acute Code(s): I10 - ESSENTIAL (PRIMARY) HYPERTENSION SNOMED Code(s): 67336328 (5) prison (current) use of opiate analgesic Current Visit: Yes Status: Acute Code(s): Z79.891 - PEDIATRIC ASSISTANT (CURRENT) USE OF OPIATE ANALGESIC SNOMED Code(s): 596640660 (6) Pneumonia Current Visit: Yes Status: Acute Code(s): J18.9 - PNEUMONIA, UNSPECIFIED ORGANISM SNOMED Code(s): 963263646 (7) Cardiomyopathy Current Visit: No Status: Acute Code(s): I42.9 - CARDIOMYOPATHY, UNSPECIFIED SNOMED Code(s): 48650808 (8) Daily consumption of alcohol Current Visit: No Status: Acute Code(s): Z78.9 - OTHER SPECIFIED HEALTH STATUS SNOMED Code(s): 901711499 Plan: Intubated and mechanically ventilated ARDS secondary to covid [address], PEG tube inserted yesterday Cardiomyopathy Heart failure Hypertension Type 2 diabetes Patient was not vaccinated for SARS Covid 19 Prognosis critical Time with Patient: Greater than 30
[2021-08-19] MEDS: SODIUM CHLORIDE 0.9% 500 ML 500 ML IV SCH (18:18)
[2021-08-19 18:33] LABS: Glucose,Whole Blood 119 mg/dL (75-99)
[2021-08-19 23:14] LABS: Glucose,Whole Blood 94 mg/dL (75-99)
[2021-08-20] MEDS: ARTIFICIAL TEARS-HYPROMELLOSE DROPS 15 ML BTL BOTH EYES SCH ×5 (03:01→22:02)
[2021-08-20] MEDS: fentaNYL (PF). 1,000 MCG in SODIUM CHLORIDE 0.9% 80 ML IV SCH ×4 (03:52→22:03)
[2021-08-20] MEDS: CISATRACURIUM 200 MG in SODIUM CHLORIDE 0.9% 180 ML IV SCH ×3 (03:52→21:44)
[2021-08-20 04:10] LABS: Basophils % (A) 0 %; Eosinophils # (A) 0.3 k/uL (0-0.7); Eosinophils % (A) 3 %; HCT 28.6 % (39.0-53.0); HGB 9.6 gm/dL (13.0-17.5); Hypochromasia Slight; Lymphocytes % (A) 14 %; MCH 34.2 pg (25.0-35.0); MCHC 33.7 g/dL (31.0-37.0); MCV 101.3 fL (80.0-100.0); Macrocytosis Slight; Mean Platelet Volume 8.5; Monocytes # (A) 0.3 k/uL (0-1.0); Monocytes % (A) 3 %; Neutrophils # (A) 6.1 k/uL (1.3-7.7); Neutrophils % (A) 79 %; Platelet Count 301 k/uL (150-450); RBC 2.82 m/uL (4.30-5.90); RDW 14.7 % (11.5-15.5); WBC 7.8 k/uL (3.8-10.6)
[2021-08-20 04:25] LABS: ALT 64 U/L (4-49); AST 47 U/L (17-59); African American GFR (CKD) >90 (>60 ml/min/1.73 sqM); Albumin 2.3 g/dL (3.5-5.0); Alkaline Phosphatase 87 U/L (38-126); Anion Gap 4 mmol/L; Blood Urea Nitrogen 25 mg/dL (9-20); Calcium 7.9 mg/dL (8.4-10.2); Carbon Dioxide 35 mmol/L (22-30); Chloride 103 mmol/L (98-107); Glucose 124 mg/dL (74-99); LDH 923 U/L (313-618); Non-African American GFR(CKD) >90 (>60 ml/min/1.73 sqM); Potassium 3.2 mmol/L (3.5-5.1); Sodium 142 mmol/L (137-145); Total Bilirubin 0.7 mg/dL (0.2-1.3); Total Protein 5.1 g/dL (6.3-8.2)
[2021-08-20 04:38] LABS: C Reactive Protein 24.4 mg/dL (<1.0)
[2021-08-20] MEDS: INSULIN ASPART (NovoLOG) 100 UNIT/ML VIAL SQ SCH ×3 (05:30→17:36)
[2021-08-20 05:31] LABS: Glucose,Whole Blood 106 mg/dL (75-99)
[2021-08-20] MEDS: POTASSIUM BICARB-CITRIC ACID 25 MEQ TABLET.EFF PO SCH ×2 (05:31→07:06)
[2021-08-20 05:45] LABS: ABG HCO3 35 mmol/L (21-25); ABG Oxygen Saturation 91.3 % (94-97); ABG PCO2 47 mmHg (35-45); ABG PH 7.48 (7.35-7.45); ABG PO2 62 mmHg (83-108); ABG TCO2 36 mmol/L (19-24); Allen Test Performed? Yes
--- NOTE | 2021-08-20 08:29 | XR ---
EXAMINATION TYPE: XR chest 1V portable DATE OF EXAM: 08/20/2021 Comparison: 08/19/2021 Clinical History: 65-year-old male covid Findings: Tracheostomy cannula tip 2.2 cm from the giovani. Consider pulling back 1.5 cm. Heart normal size. Hyp erinflation. Right PICC tip at the lower SVC level. Diffuse interstitial changes and patchy and confl uent groundglass, right greater than left is unchanged. Hyperinflation. Impression: 1. Tracheostomy cannula tip 2.2 cm from the giovani. Consider pulling back 1.5 cm. 2. COPD with stable diffuse interstitial changes with patchy and confluent groundglass COVID infiltra cuauhtemoc.
[2021-08-20] MEDS: DEXAMETHASONE SOD PHOSPHATE 10 MG/ML 1 ML VIAL IVP SCH (09:39)
[2021-08-20] MEDS: PANTOPRAZOLE 40 MG/10 ML VIAL IVP SCH (09:39)
[2021-08-20] MEDS: ASPIRIN 81 MG PO SCH ×2 (09:40→22:00)
[2021-08-20] MEDS: ENOXAPARIN 40 MG/0.4 ML SYRINGE SQ SCH (09:40)
[2021-08-20] MEDS: ASCORBIC ACID 500 MG TAB PO SCH (09:40)
[2021-08-20] MEDS: FUROSEMIDE 10 MG/ML 4 ML VIAL IV SCH (09:40)
[2021-08-20] MEDS: ZINC SULFATE 220 MG CAP PO SCH (09:40)
[2021-08-20] MEDS: CHLORHEXIDINE GLUCONATE 15 ML CUP MUCOUS MEM SCH ×2 (09:40→22:02)
[2021-08-20] MEDS: CHOLECALCIFEROL 25 MCG (1000 IU) TABLET PO SCH (09:41)
[2021-08-20] MEDS: NOREPINEPHRINE 8 MG in SODIUM CHLORIDE 0.9% 250 ML IV SCH (09:42)
[2021-08-20 11:36] LABS: Glucose,Whole Blood 137 mg/dL (75-99)
--- NOTE | 2021-08-20 11:42 | P.PN ---
Subjective Progress Note Date: 08/20/21 CHIEF COMPLAINT: Covid 19 pneumonia HISTORY OF PRESENT ILLNESS: Patient is status post tracheostomy and PEG tube placement on 08/18/2021 patient is tolerating tube feedings. Dietitian is advancing to feedings. Patient does have oral secretions that are bloody. There is minimal bleeding around tracheostomy site noted per nursing staff. Afebrile. WBC is 7.8 hemoglobin 9.6 PHYSICAL EXAM: VITAL SIGNS: Reviewed. GENERAL: Well-developed in no acute distress. HEENT: No sclera icterus. Extraocular movements grossly intact. Moist buccal mucosa. Head is atraumatic, normocephalic. ABDOMEN: Soft. Nondistended. Nontender. PEG tube site clean dry and intact ASSESSMENT: 1. Acute hypoxic respiratory failure secondary to COVID-19 pneumonia. Patient status post tracheostomy placement 2. Severe protein calorie malnutrition status post PEG tube placement PLAN: -Tube feeding advancement per dietitian -Continue ICU management -Continue supportive care Physician Director Of Accounts Payable note has been reviewed by physician. Signing provider agrees with the documented findings, assessment, and plan of care. Objective - Vital Signs Vital signs: Vital Signs Temp 98.2 F 08/20/21 04:00 Pulse 89 08/20/21 10:00 Resp 28 H 08/20/21 10:00 BP 138/73 08/20/21 10:00 Pulse Ox 89 L 08/20/21 10:00 Intake & Output 08/19/21 08/20/21 08/20/21 18:59 06:59 18:59 Intake Total 6991.176 0268.164 394 Output Total 1545 530 180 Balance -123.327 910.164 214 Weight 118 kg Intake: IV 516 276 92 Potassium Chloride 10 meq 300 In Water For Injection 1 100ml.bag @ 100 mls/hr IVPB Q1HR [facility] Rx#: [id number] Sodium Chloride 0.9% 1, 180 240 80 000 ml @ 20 mls/hr IV . Q24H [facility] Rx#:[id number] pressure bag 36 36 12 Intake, IV Titration 905.673 858.164 200 Amount Cisatracurium 200 mg In 333.38 383.668 Sodium Chloride 0.9% 180 ml @ 1 MCG/KG/MIN 6.24 mls/hr IV .Q24H [facility] Rx#: [id number] fentaNYL (PF). 1,000 mcg 272.293 192.213 100 In Sodium Chloride 0.9% 80 ml @ 0.5 MCG/KG/HR 5.2 mls/hr IV .[id number] [facility] Rx#:[id number] propofoL 1,000 mg In 300 282.283 100 Empty Bag 1 bag @ Titrate IV .Q0M [facility] Rx#: [id number] Tube Feeding 216 72 Other 90 30 Output: Urine 1545 530 180 Other: Voiding Method Indwelling Catheter Indwelling Catheter ABP, PAP, CO, CI - Last Documented Arterial Blood Pressure 111/60 - Labs CBC & Chem 7: 08/20/21 04:00 08/20/21 04:00 Labs: Abnormal Lab Results - Last 24 Hours (Table) 08/19/21 08/20/21 08/20/21 Range/Units 18:31 04:00 04:00 RBC 2.82 L (4.30-5.90) m/uL Hgb 9.6 L (13.0-17.5) gm/dL Hct 28.6 L (39.0-53.0) % MCV 101.3 H (80.0-100.0) fL ABG pH (7.35-7.45) ABG pCO2 (35-45) mmHg ABG pO2 (83-108) mmHg ABG HCO3 (21-25) mmol/L ABG Total CO2 (19-24) mmol/L ABG O2 Saturation (94-97) % Potassium 3.2 L (3.5-5.1) mmol/L Carbon Dioxide 35 H (22-30) mmol/L BUN 25 H (9-20) mg/dL Creatinine 0.45 L (0.66-1.25) mg/dL Glucose 124 H (74-99) mg/dL POC Glucose (mg/dL) 119 H (75-99) mg/dL Calcium 7.9 L (8.4-10.2) mg/dL ALT 64 H (4-49) U/L Lactate Dehydrogenase 923 H (313-618) U/L C-Reactive Protein 24.4 H (<1.0) mg/dL Total Protein 5.1 L (6.3-8.2) g/dL Albumin 2.3 L (3.5-5.0) g/dL 01/11/0608/20/21 08/20/21 Range/Units 05:30 06:01 11:34 RBC (4.30-5.90) m/uL Hgb (13.0-17.5) gm/dL Hct (39.0-53.0) % MCV (80.0-100.0) fL ABG pH 7.48 H (7.35-7.45) ABG pCO2 47 H (35-45) mmHg ABG pO2 62 L (83-108) mmHg ABG HCO3 35 H (21-25) mmol/L ABG Total CO2 36 H (19-24) mmol/L ABG O2 Saturation 91.3 L (94-97) % Potassium (3.5-5.1) mmol/L Carbon Dioxide (22-30) mmol/L BUN (9-20) mg/dL Creatinine (0.66-1.25) mg/dL Glucose (74-99) mg/dL POC Glucose (mg/dL) 106 H 137 H (75-99) mg/dL Calcium (8.4-10.2) mg/dL ALT (4-49) U/L Lactate Dehydrogenase (313-618) U/L C-Reactive Protein (<1.0) mg/dL Total Protein (6.3-8.2) g/dL Albumin (3.5-5.0) g/dL
[2021-08-20] MEDS: INSULIN DETEMIR (LEVEMIR) 100 UNIT/ML SYR SQ SCH ×2 (12:01→22:02)
--- NOTE | 2021-08-20 13:11 | P.PN ---
Subjective Progress Note Date: 08/20/21 Principal diagnosis: Respiratory failure. Shortness of breath, hypoxia, COVID 19 This is 65-year-old male patient who has a history of hyperlipidemia, hypertension, anxiety, PTSD. He developed symptoms of increasing shortness of breath cough and congestion headache fever chills approximately 4 days ago. He tested positive for COVID-19 and received monoclonal antibodies by [facility]. He presented to the emergency room early this morning with worsening symptoms. The patient is not vaccinated. Chest x-ray shows bilateral patchy opacities consistent with COVID-19 pneumonia. White count 5.8. Hemoglobin 15.3. Lymphocytes 0.7. D-dimer 0.33. Sodium 134. Potassium 4.4. Creatinine 0.84. AST 56,. ALT 34. Troponins negative 3. ProBNP 54. He's been initia liza on Decadron, Lovenox, vitamin supplements. He is seen today in consultation on the regular medical floor. He is already on by mouth liters high flow nasal cannula plus a nonrebreather mask. He is afebrile. Hemodynamically stable. Dyspneic with minimal conversation. Dyspneic with minimal exertion. On 07/29/2021 patient seen in follow-up on medical surgical floor, he is currently on 15 L per high flow nasal cannula his pulse ox is 87-91%, he is afebrile, hemodynamically stable, patient has been repositioning self and then, on his left side right side, and he states he did try some prone positioning briefly.He was started on Baricitinib yesterday and he is on Decadron 6 mg daily in addition to prophylactic Lovenox. Today's labs have been reviewed, his white blood cell count is 10.7, hemoglobin is 14.4, he is actually excellent renal profile are within normal limits, he is d-dimer on admission was negative at 0.33. LDH and CRP levels are still pending, pro-calcitonin level was negative at 0.07. On 07/30/2021 patient is seen in follow-up on medical surgical floor, he remains on high flow oxygen with 15 L high flow nasal cannula and 100% nonrebreather mask, and his pulse ox of 92-94%, and in a patient was confused, and agitated at times, he was removing his oxygen desaturating, health and safety trainer is outside the door, doing supervision. Patient is breathing fairly comfortably, he feels like his breathing is a little easier today, has occasional cough, at times she is able to bring up some yellow and green colored phlegm, no fever or chills, he was started on Baricitinib on 07/28/2021, he is also on Decadron 6 mg daily, and Lovenox 40 mg daily. Remains on IV fluids with 0.9 normal saline at a rate of 75 ML per hour, he is on COVID-19 vitamins. Labs reviewed, white blood cell count is 12.9, hemoglobin is 14.6, platelet count is 369, his d-dimer slightly increased and is currently at 0.60, electrolytes and renal profile are within normal limits. His LDH today is increased and is up to 1634, patient had 4 sets of negative troponin at less than 0.012, proBNP was 107, pro-calcitonin level was negative at 0.07 On 08/01/2021 patient seen in follow-up on medical surgical floor. Patient is currently on 15 L and 100% nonrebreather mask, he had a rapid response team call early this morning for a concern of intermittent pleuritic chest discomfort, and pain in bilateral lower extremities. In addition patient was noted to be intermittently removing his oxygen and desaturating. Currently he is awake, he is laying in bed, however he is crying, he is complaining of pain, however he is not able to say where the pain is. O2 saturation is 91%. His been afebrile, hemodynamically stable, lower extremity Dopplers were negative for DVT. Patient is currently on Baricitinib, he is on Lovenox 40 mg daily, and Decadron. He is receiving IV fluids at a rate of 75 ML per hour. He is d-dimer is 0.76, white count is 13.3, hemoglobin is 13.7, electrolyte and renal profile are within normal limits, he is LDH has improved since admission, and is down to 572, his troponins were negative 3, and CRP is improving and is down to 2.2. On 08/02/2021 patient seen in follow-up in the intensive care unit, this morning she was emergently transferred to the ICU for worsening hypoxia, he was emergently intubated and placed on mechanical ventilator, currently sedated, on assist-control mode of ventilation with a rate of 36, tidal volume is 450, FiO2 100% and PEEP of 10. Patient is quite dyssyncronous with the ventilator, Nimbex has been ordered, awaiting starting the paralytic. This pulse ox is only 82%, and the PEEP has been increased to 14, awaiting follow-up blood gas. He is in sinus mechanism tachycardic with a rate of 116. He is currently on 0.9 with seen at the rate of 75 ML per hour, Diprivan is 50 mics per kilo per minute. Patient was given Nimbex 10 mg IV push, he is better synchronize, his peak air pressures 34, plateau is 31. His chest x-ray from this morning shows ET tube slightly low, just above the giovani, and we will pull back the ET tube 2 or 3 cm. There are bilateral multifocal increased opacities with worsening findings and the right upper lung. CT angiogram of the chest from yesterday showed no acute pulmonary embolism within the limitation of the study. Today's labs are still pending. Patient continues on Baricitinib, Lovenox 40 mg, Decadron. Pickett catheter has been placed, patient is producing urine, he required a brief norepinephrine support. We'll place his Lasix on hold, will discontinue oral medications. On 08/03/2021 patient is seen in follow-up in the intensive care unit, he is currently intubated, sedated and paralyzed and proned. Vent settings this morning are assist-control with a rate of 36, tidal volume is 450, FiO2 of 90% and PEEP of 10. However his pulse ox is only 86-80%, this morning's blood gas shows pO2 of 64, pCO2 41, and pH of 7.36. His peak pressure is 32, plateau is 34. Patient is currently on 0.9 normal saline at 75 ML per hour, fentanyl is a 0.5 mics per kilo per minute, norepinephrine drip is a 0.03 mics per minute, Nimbex is a 2 mics per minute per minute, Diprivan is a 50 mics per kilo per minute. He was started on tube feedings with vital HP at a rate of 30 with a goal of 34. Chest x-ray today is still pending, patient's chest x-ray will be taken when he is turned on his back at 10:00 this morning. Today's labs show uptrending white count at 17.3, hemoglobin is 13, his INR is 1.1, his d-dimer is 9.45, sodium is 136, potassium is 4.1, CO2 is 20, BUN 17 creatinine 0.67, his troponin increased to 0.3-0, cardiology has been consulted, his proBNP was 2100, cortisol level was 19, TSH was 0.031, but free T4 was 1.17, within normal limits. Pro-calcitonin level came back at 1.31 suggesting presence of bacterial infection and patient is on sitting up which we will discontinue this morning. Urinalysis has been sent shows no evidence of infection, patient will be pancultured. And placed on cefepime. His recent CT angiogram of the chest showed no acute PE, post recent lower extremity Dopplers from 07/30/2021 showed no evidence of DVT. Patient did have fever elevation through the night, with a T-max of 106.8F, patient received antipyretics, this morning his temperature is 100.1F. Blood cultures will be sent lactic acid will be obtained. Progress note dated 08/04/2021. The patient remains in the intensive care unit, in seen in room 266. Currently, he's on the volume assist control mode, rate 36, tidal volume 450, FiO2 100%, and PEEP of 14. Blood gases show a PaO2 of 108, pCO2 of 50, and pH is 7.3. The patient's on Nimbex at 2 mcg/kg/m, fall at 50 mcg/kg/m, fentanyl at 1.5 mcg/kg/h, saline at 75 mL an hour and vital high protein at 30 mL an hour. That is goal. We will attempt to wean the FiO2. The PEEP was increased from 14 up to 18 cm water and we'll add hydrocortisone 50 mg every 6 hours. The patient's cortisol level was a bit low. White count 19.4, hemoglobin 12, hematocrit 37.1, platelet count 383,000. Sodium 139, potassium 4, chlorides 112, CO2 22, anion gap 5, BUN 16, creatinine 0.47. Albumin is 2.2. Chest x-ray shows diffuse bilateral infiltrates, and CT angiogram was negative for pulmonary embolism. Progress note dated 08/05/2021. 65-year-old male, again seen in the ICU, room 266. The patient is currently on the volume assist control mode of ventilation, rate 36, tidal volume 450, FiO2 90%, and PEEP of 18. Blood gases show a PaO2 of 83, pCO2 42, and a pH is 7.38. The patient remains on Nimbex at 2 mcg/kg/m, propofol at 50 mcg/kg/m, and fentanyl 1.5 mcg/kg/h. The patient's getting saline at 75 mL an hour, and vital high protein at 30 mL an hour, which is goal. The plans for the patient today or to wean the FiO2 down, to reduce his fluids to KVO, and to give the patient Lasix [address] angiogram was negative for pulmonary embolism. White count 16.9, hemoglobin 11.4, hematocrit 36, and normal platelet count. Sodium 141, potassium 4.3, chlorides 113, CO2 23, anion gap 5, BUN 21, and creatinine 0.5. Albumin is 2.1. Microbiologic studies are negative. Chest x-ray shows bilateral patchy infiltrates and pneumonia, somewhat improved compared to the prior chest x-ray. Progress note dated 08/20/2020. This is a 65-year-old male, who was initially admitted back on July 28. He was admitted with a diagnosis of coronavirus associated pneumonia. He came to the intensive care unit on August 02, and was intubated on the . The patient had a tracheostomy and PEG tube placement on 08/18/2021. The patient remains on the mechanical ventilator, with the pressure assist control modality. The patient's inspiratory pressure is 17 cm water, inspiratory time is 1 second, the rate of 28 breaths per minute, FiO2 is 75%, and the PEEP is 15. Arterial blood gases show pO2 of 62, pCO2 47, and pH is 7.48. The patient is currently on saline at 20 mL an hour, fentanyl at 2 mcg/kg/h, propofol at 50 mcg/kg/m, and index of 4.5 mcg/kg/m, and vital AF at 22 mL an hour. That is go al. White count of 7.8, hemoglobin 9.6, hematocrit 28.6, and platelet count is 301,000. Sodium 142, potassium 3.2, chlorides 103, CO2 35, anion gap 4, BUN 25, and creatinine 0.45. LDH is 923 with a C-reactive protein of 24.4. Microbiology, thus far is negative. Chest x-ray shows diffuse bilateral infiltrates, largely unchanged. The tip of the tracheostomy tube was noted to 2.2 cm above the giovani. Objective - Vital Signs Vital signs: Vital Signs Temp 99.2 F 08/20/21 11:00 Pulse 89 08/20/21 12:00 Resp 28 H 08/20/21 12:00 BP 125/70 08/20/21 12:00 Pulse Ox 90 L 08/20/21 12:00 Intake & Output 08/19/21 08/20/21 08/20/21 18:59 06:59 18:59 Intake Total 7157.808 2221.164 721.42 Output Total 7818 322 4377 Balance -123.327 910.164 -658.58 Weight 118 kg Intake: IV 516 276 115 Potassium Chloride 10 meq 300 In Water For Injection 1 100ml.bag @ 100 mls/hr IVPB Q1HR [facility] Rx#: [id number] Sodium Chloride 0.9% 1, 180 240 100 000 ml @ 20 mls/hr IV . Q24H [facility] Rx#:[id number] pressure bag 36 36 15 Intake, IV Titration 905.673 858.164 486.42 Amount Cisatracurium 200 mg In 333.38 383.668 200 Sodium Chloride 0.9% 180 ml @ 1 MCG/KG/MIN 6.24 mls/hr IV .Q24H [facility] Rx#: [id number] fentaNYL (PF). 1,000 mcg 272.293 192.213 100 In Sodium Chloride 0.9% 80 ml @ 0.5 MCG/KG/HR 5.2 mls/hr IV .[id number] [facility] Rx#:[id number] propofoL 1,000 mg In 300 282.283 186.42 Empty Bag 1 bag @ Titrate IV .Q0M [facility] Rx#: [id number] Tube Feeding 216 90 Other 90 30 Output: Urine 5859 299 5791 Other: Voiding Method Indwelling Catheter Indwelling Catheter ABP, PAP, CO, CI - Last Documented Arterial Blood Pressure 113/58 - Exam No acute distress, sedated and paralyzed. The patient has a midline tracheostomy tube. HEENT examination is grossly unremarkable. Neck supple. Full range of motion. No adenopathy thyromegaly or neck vein distention. Cardiovascular examination reveals regular rhythm rate. S1-S2 normal. No S3 or S4. No discernible murmur noted. Heart sounds are distant. Heart rate 89 bpm. Lungs reveal diffuse bilateral rhonchi as well as bilateral crackles. Breath sounds equal bilaterally. There are no wheezes. Saturations are 92%. Abdomen soft bowel sounds are heard. No masses. A PEG tube is noted. Extremities are intact. No cyanosis clubbing or edema. Skin is without rash or lesion. Neurologic examination cannot be adequately assessed as the patient's currently sedated and paralyzed. - Labs CBC & Chem 7: 08/20/21 04:00 08/20/21 04:00 Labs: Abnormal Lab Results - Last 24 Hours (Table) 08/19/21 08/20/21 08/20/21 Range/Units 18:31 04:00 04:00 RBC 2.82 L (4.30-5.90) m/uL Hgb 9.6 L (13.0-17.5) gm/dL Hct 28.6 L (39.0-53.0) % MCV 101.3 H (80.0-100.0) fL ABG pH (7.35-7.45) ABG pCO2 (35-45) mmHg ABG pO2 (83-108) mmHg ABG HCO3 (21-25) mmol/L ABG Total CO2 (19-24) mmol/L ABG O2 Saturation (94-97) % Potassium 3.2 L (3.5-5.1) mmol/L Carbon Dioxide 35 H (22-30) mmol/L BUN 25 H (9-20) mg/dL Creatinine 0.45 L (0.66-1.25) mg/dL Glucose 124 H (74-99) mg/dL POC Glucose (mg/dL) 119 H (75-99) mg/dL Calcium 7.9 L (8.4-10.2) mg/dL ALT 64 H (4-49) U/L Lactate Dehydrogenase 923 H (313-618) U/L C-Reactive Protein 24.4 H (<1.0) mg/dL Total Protein 5.1 L (6.3-8.2) g/dL Albumin 2.3 L (3.5-5.0) g/dL 01/03/22 01/03/22 01/03/22 Range/Units 05:30 06:01 11:34 RBC (4.30-5.90) m/uL Hgb (13.0-17.5) gm/dL Hct (39.0-53.0) % MCV (80.0-100.0) fL ABG pH 7.48 H (7.35-7.45) ABG pCO2 47 H (35-45) mmHg ABG pO2 62 L (83-108) mmHg ABG HCO3 35 H (21-25) mmol/L ABG Total CO2 36 H (19-24) mmol/L ABG O2 Saturation 91.3 L (94-97) % Potassium (3.5-5.1) mmol/L Carbon Dioxide (22-30) mmol/L BUN (9-20) mg/dL Creatinine (0.66-1.25) mg/dL Glucose (74-99) mg/dL POC Glucose (mg/dL) 106 H 137 H (75-99) mg/dL Calcium (8.4-10.2) mg/dL ALT (4-49) U/L Lactate Dehydrogenase (313-618) U/L C-Reactive Protein (<1.0) mg/dL Total Protein (6.3-8.2) g/dL Albumin (3.5-5.0) g/dL Assessment and Plan Assessment: Acute hypoxemic respiratory failure secondary to coronavirus associated pneumonia, with initial admission on 07/28/2021. Status post intubation and mechanical ventilation for respiratory failure on 08/02/2021, and because of failure to wean from mechanical ventilation, tracheostomy and PEG tube placement on 08/18/2021. CT angiogram negative for pulmonary embolism. Elevated troponins, likely related to supply/demand mismatch. Chronic systolic CHF. History of hypertension. History of CAD. Hyperlipidemia. Chronic back pain. History of alcohol use. History of anxiety/PTSD. Plan: Plan dated 08/04/2021. The patient remains on the mechanical ventilator. We will increase the PEEP levels to 18, and try to wean the FiO2. Because his cortisol level is a bit low, we added hydrocortisone, 50 mg IV push, every 6 hours. The patient remains on cefepime empirically. The patient also is on Decadron and Lovenox. The patient is maintained on vitamin C, vitamin D3, and zinc. He remains on Nimbex, propofol, and fentanyl. He's getting tube feedings at goal. We will continue to follow make recommendations where appropriate. Prognosis is guarded. Plan dated 08/05/2021. The patient remains sedated and paralyzed. We will attempt to wean the Nimbex off. The patient will get Lasix 40 mg IV push today. In addition, we will attempt to wean the FiO2. Also, we'll cut back on the fluids. Additional recommendations and suggestions are forthcoming. The patient remains on Lovenox, and vitamins. We will add back Decadron and DC the hydrocortisone. Additional recommendations and suggestions are forthcoming. The patient remains on cefepime empirically. Prognosis is guarded. Plan dated 08/20/2021. The patient's labs, x-rays, and medications are reviewed. The patient's FiO2 on the ventilator is reduced from 80%, down to 75%. The patient remains on fentanyl, propofol, and Nimbex. The patient is receiving vital AF at 22 mL an hour. That is goal. The patient did undergo tracheostomy and PEG tube placement on 08/18/2021. The patient remains on Decadron and Lovenox. Additional recommendations and suggestions are forthcoming. Overall prognosis remains very guarded. No additional recommendations are made at this time. We will continue to follow and make recommendations where appropriate. Time with Patient: Greater than 30
[2021-08-20] MEDS: SODIUM CHLORIDE 0.9% 500 ML 500 ML IV SCH (13:29)
[2021-08-20] MEDS ORDERED: POTASSIUM BICARBONATE/CIT AC 20 MEQ TABLET.EFF NG-TUBE SCH (15:00)
--- NOTE | 2021-08-20 16:22 | P.PN ---
Subjective Progress Note Date: 08/20/21 This is a 65-year-old male well-known to me. He had been and getting sick last Friday. He was tested for COVID-19 and was positive. Unfortunately this patient is not vaccinated. He did receive monoclonal antibody infusion. On Friday he was initiated on Decadron and colchicine due to a obesity, history of smoking and chronic pain. He presented to the emergency room and [facility] and was found to 19 pneumonia on chest x-ray. KUB due to increased shortness of breath. He was found to have a pulse oximetry of 84 in the emergency room. He is currently on a 50% nonrebreather. His pulse oximeter is improved, but he does continue to short of breath this level. Initial laboratory studies were essentially normal. Diabetes 5 Hemoglobin 53. There Is No Significant Shift. 07/30/2021 maintained on 15 L high flow nasal cannula and nonrebreather mask, maintaining O2 sats of 90-94%. Continues on Covid cocktail,Baricitinib. Pro- calcitonin negative. Requiring sitter at bedside to facilitate patient leaving his oxygen on. Renal function within normal limits. Inflammatory markers incr eased. 07/31/2021 maintained on Covid cocktail, Baricitinib. continues on 15 L high flow nasal cannula/nonrebreather mask maintaining O2 sats in the 90s. Chest x- ray reporting interstitial and alveolar infiltrates with small effusions stable. Afebrile. Requiring traffic safety administrator to remind patient from refraining to pull off his mask. Dopplers reported negative for bilateral lower extremities DVT. 08/01/2021 respiratory status unchanged. The patient alert and oriented 3,requires sitter at bedside to remind him to leave his mask on. Afebrile. Maintained on Covid cocktail. 08/02/2021 respiratory status worsened, unable to tolerate BiPAP and transferred to the ICU, requiring emergent intubation. Maintained on 100% FiO2/+18 of PEEP. Chest x-ray reporting increased bilateral multifocal opacities-consistent with COVID-19 infection progression. CTA reported negative for acute PE.Continues on Nimbex, diprovan, fentanyl. On and off Levophed. Currently on third liter of IV fluids. Mild tachycardia, borderline hypotension. Temperature 102.6, WBC 13.34, hemoglobin 13.7, platelets 455. D-dimer 0.76, ferritin 656, LDH 572 CRP 2.20. ABGs pending. 08/03/2021 FiO2 90/+10 of PEEP. Maintained on diprovan, on Nimbex, fentanyl, norepinephrine. Prone positioned. Currently maintaining O2 sats in the high 80s. T-max 106.8 currently 100.1. WBC trending up, 17.3. Pro-calcitonin elevated, 1.31. Pancultured/Lactic acid pending. Baricitinib discontinued with Cefepime initiated .Inflammatory markers increased with significant elevation of d-dimer, 9.45. Cardiology consult in place, Troponin increased 0.320. 08/20/21 FiO2 75%/+15 of PEEP. Maintained on fentanyl, diprovan and nimbex drips. T-max 99.9, WBC within normal limits. Potassium 3.2, receiving supplements. Inflammatory markers mildly elevated with the exception of LDH. Chest x-ray reporting COPD with stable diffuse interstitial changes, patchy, confluent groundglass Covid infiltrates. Tracheostomy cannula tip 2.2 cm from the giovani-adjustment as per weight inspector. Hemoglobin 9.6. Foul-smelling , thick epi,burg[place] oral secretions occurring over the last couple days, right neck area discoloration-possible mass/abscess-CT ordered. Blood sugars currently controlled but increasing.Tolerating tube feeds with minimal to no residuals, gold currently being advanced by dietitian. Objective - Vital Signs Vital signs: Vital Signs Temp 98.2 F 08/20/21 04:00 Pulse 89 08/20/21 10:00 Resp 28 H 08/20/21 10:00 BP 138/73 08/20/21 10:00 Pulse Ox 89 L 08/20/21 10:00 Intake & Output 08/19/21 08/20/21 08/20/21 18:59 06:59 18:59 Intake Total 8555.913 7147.164 394 Output Total 1545 530 180 Balance -123.327 910.164 214 Weight 118 kg Intake: IV 516 276 92 Potassium Chloride 10 meq 300 In Water For Injection 1 100ml.bag @ 100 mls/hr IVPB Q1HR [facility] Rx#: [id number] Sodium Chloride 0.9% 1, 180 240 80 000 ml @ 20 mls/hr IV . Q24H [facility] Rx#:[id number] pressure bag 36 36 12 Intake, IV Titration 905.673 858.164 200 Amount Cisatracurium 200 mg In 333.38 383.668 Sodium Chloride 0.9% 180 ml @ 1 MCG/KG/MIN 6.24 mls/hr IV .Q24H [facility] Rx#: [id number] fentaNYL (PF). 1,000 mcg 272.293 192.213 100 In Sodium Chloride 0.9% 80 ml @ 0.5 MCG/KG/HR 5.2 mls/hr IV .[id number] [facility] Rx#:[id number] propofoL 1,000 mg In 300 282.283 100 Empty Bag 1 bag @ Titrate IV .Q0M [facility] Rx#: [id number] Tube Feeding 216 72 Other 90 30 Output: Urine 1545 530 180 Other: Voiding Method Indwelling Catheter Indwelling Catheter ABP, PAP, CO, CI - Last Documented Arterial Blood Pressure 111/60 - Exam GENERAL: Fatigued thin male, intubated ,sedated, paralyzed HEAD: Atraumatic, normocephalic. HEART: Telemetry sinus rhythm-sinus tachycardia LUNGS: Diffuse scattered rhonchi, bibasilar crackles EXTREMITIES: Normal range of motion, no edema NEUROLOGICAL: Unable to assess, patient on mechanical ventilator, sedated and paralyzed - Labs CBC & Chem 7: 08/20/21 04:00 08/20/21 13:35 Labs: Abnormal Lab Results - Last 24 Hours (Table) 08/19/21 08/20/21 08/20/21 Range/Units 18:31 04:00 04:00 RBC 2.82 L (4.30-5.90) m/uL Hgb 9.6 L (13.0-17.5) gm/dL Hct 28.6 L (39.0-53.0) % MCV 101.3 H (80.0-100.0) fL ABG pH (7.35-7.45) ABG pCO2 (35-45) mmHg ABG pO2 (83-108) mmHg ABG HCO3 (21-25) mmol/L ABG Total CO2 (19-24) mmol/L ABG O2 Saturation (94-97) % Potassium 3.2 L (3.5-5.1) mmol/L Carbon Dioxide 35 H (22-30) mmol/L BUN 25 H (9-20) mg/dL Creatinine 0.45 L (0.66-1.25) mg/dL Glucose 124 H (74-99) mg/dL POC Glucose (mg/dL) 119 H (75-99) mg/dL Calcium 7.9 L (8.4-10.2) mg/dL ALT 64 H (4-49) U/L Lactate Dehydrogenase 923 H (313-618) U/L C-Reactive Protein 24.4 H (<1.0) mg/dL Total Protein 5.1 L (6.3-8.2) g/dL Albumin 2.3 L (3.5-5.0) g/dL 08/20/21 08/20/21 08/20/21 Range/Units 05:30 06:01 11:34 RBC (4.30-5.90) m/uL Hgb (13.0-17.5) gm/dL Hct (39.0-53.0) % MCV (80.0-100.0) fL ABG pH 7.48 H (7.35-7.45) ABG pCO2 47 H (35-45) mmHg ABG pO2 62 L (83-108) mmHg ABG HCO3 35 H (21-25) mmol/L ABG Total CO2 36 H (19-24) mmol/L ABG O2 Saturation 91.3 L (94-97) % Potassium (3.5-5.1) mmol/L Carbon Dioxide (22-30) mmol/L BUN (9-20) mg/dL Creatinine (0.66-1.25) mg/dL Glucose (74-99) mg/dL POC Glucose (mg/dL) 106 H 137 H (75-99) mg/dL Calcium (8.4-10.2) mg/dL ALT (4-49) U/L Lactate Dehydrogenase (313-618) U/L C-Reactive Protein (<1.0) mg/dL Total Protein (6.3-8.2) g/dL Albumin (3.5-5.0) g/dL Assessment and Plan Assessment: Acute COVID-19 pneumonia, status post monoclonal antibody infusion, un- vaccinated. Sepsis secondary to the above and suspected underlying bacterial infection, elevated pro calcitonin, pancultured Acute hypoxic respiratory failure, mechanical ventilator-dependent with possible ARDS Status post tracheostomy and PEG tube placement Troponin, elevated, possibly related to the above ,cardiology following Hypernatremia secondary to diuresing, resolved Former nicotine dependence Daily alcohol consumption Essential hypertension Long-term use of opiate analgesic CAD Chronic congestive heart failure, systolic dysfunction, EF 40-45% Plan: Continue current medication regime ,monitoring and symptomatic treatment. Right neck CT ordered as mentioned above. Additional Levemir at night, to be called increased from 24-45-[id number] at goal. Covid cocktail. ICU management as per weight inspector. Prognosis guarded given multiple complex medical issues. The impression and plan of care has been dictated as directed. : I performed a history and examination of this patient, discussed the same with the dictator. I agree with the dictator's note ,documented as a scribe. Any additional findings or plans will be noted.
[2021-08-20] MEDS: ATORVASTATIN 40 MG TAB PO SCH (17:23)
[2021-08-20 17:36] LABS: Glucose,Whole Blood 194 mg/dL (75-99)
[2021-08-20] MEDS: ALBUTEROL HFA INHALER INHALATION PRN (20:57)
[2021-08-21 00:04] LABS: Glucose,Whole Blood 126 mg/dL (75-99)
[2021-08-21] MEDS: INSULIN ASPART (NovoLOG) 100 UNIT/ML VIAL SQ SCH ×5 (00:09→23:41)
[2021-08-21] MEDS: ARTIFICIAL TEARS-HYPROMELLOSE DROPS 15 ML BTL BOTH EYES SCH ×7 (00:11→23:27)
[2021-08-21 05:24] LABS: Albumin 2.3 g/dL (3.5-5.0); Chloride 102 mmol/L (98-107); Glucose 127 mg/dL (74-99); Potassium 3.6 mmol/L (3.5-5.1)
[2021-08-21 05:25] LABS: ALT 62 U/L (4-49); AST 41 U/L (17-59); African American GFR (CKD) >90 (>60 ml/min/1.73 sqM); Alkaline Phosphatase 104 U/L (38-126); Anion Gap 5 mmol/L; Blood Urea Nitrogen 20 mg/dL (9-20); Calcium 7.9 mg/dL (8.4-10.2); Carbon Dioxide 34 mmol/L (22-30); Non-African American GFR(CKD) >90 (>60 ml/min/1.73 sqM); Sodium 141 mmol/L (137-145); Total Bilirubin 0.7 mg/dL (0.2-1.3)
[2021-08-21 05:26] LABS: HCT 28.6 % (39.0-53.0); HGB 9.2 gm/dL (13.0-17.5); Hypochromasia Moderate; MCH 33.1 pg (25.0-35.0); MCHC 32.3 g/dL (31.0-37.0); MCV 102.4 fL (80.0-100.0); Macrocytosis Slight; Mean Platelet Volume 7.9; Platelet Count 283 k/uL (150-450); Poikilocytosis Slight; RBC 2.79 m/uL (4.30-5.90); RDW 14.6 % (11.5-15.5)
[2021-08-21 05:46] LABS: ABG Base Excess 12.7 mmol/L; ABG HCO3 36 mmol/L (21-25); ABG Oxygen Saturation 89.9 % (94-97); ABG PCO2 48 mmHg (35-45); ABG PH 7.48 (7.35-7.45); ABG TCO2 38 mmol/L (19-24); Allen Test Performed? Yes
[2021-08-21 06:07] LABS: ABG PO2 57 mmHg (83-108)
[2021-08-21 06:09] LABS: Glucose,Whole Blood 132 mg/dL (75-99)
[2021-08-21] MEDS: fentaNYL (PF). 1,000 MCG in SODIUM CHLORIDE 0.9% 80 ML IV SCH ×3 (06:30→22:21)
--- NOTE | 2021-08-21 07:38 | XR ---
EXAMINATION TYPE: XR chest 1V portable DATE OF EXAM: 08/21/2021 CLINICAL HISTORY: Difficulty breathing progress study. TECHNIQUE: Single AP portable semiupright view of the chest is obtained. COMPARISON: Chest x-ray from one day earlier and older studies. FINDINGS: Stable tracheostomy tube and right-sided PICC line. Background diffuse and multifocal reticular increased opacities with prominent consolidations in the lower lungs redemonstrated. Cardiac silhouette size stable and within normal limits. Degenerative spu rring in thoracic spine redemonstrated. IMPRESSION: Bilateral chronic parenchymal changes with bilateral multifocal and confluent opacities c onsistent with covid-19 infection and/or ARDS are all redemonstrated. No significant change from one day earlier.
[2021-08-21] MEDS ORDERED: POTASSIUM BICARBONATE/CIT AC 20 MEQ TABLET.EFF NG-TUBE SCH (08:00)
[2021-08-21] MEDS: CISATRACURIUM 200 MG in SODIUM CHLORIDE 0.9% 180 ML IV SCH (09:02)
[2021-08-21] MEDS: CHLORHEXIDINE GLUCONATE 15 ML CUP MUCOUS MEM SCH ×2 (09:06→22:32)
[2021-08-21] MEDS: DEXAMETHASONE SOD PHOSPHATE 10 MG/ML 1 ML VIAL IVP SCH (09:06)
[2021-08-21] MEDS: ASCORBIC ACID 500 MG TAB PO SCH (09:06)
[2021-08-21] MEDS: INSULIN DETEMIR (LEVEMIR) 100 UNIT/ML SYR SQ SCH ×2 (09:07→22:32)
[2021-08-21] MEDS: ZINC SULFATE 220 MG CAP PO SCH (09:07)
[2021-08-21] MEDS: CHOLECALCIFEROL 25 MCG (1000 IU) TABLET PO SCH (09:07)
[2021-08-21] MEDS: ENOXAPARIN 40 MG/0.4 ML SYRINGE SQ SCH (09:07)
[2021-08-21] MEDS: ASPIRIN 81 MG PO SCH ×2 (09:07→22:32)
[2021-08-21] MEDS: FUROSEMIDE 10 MG/ML 4 ML VIAL IV SCH ×2 (09:07→22:32)
[2021-08-21] MEDS: PANTOPRAZOLE 40 MG/10 ML VIAL IVP SCH (09:07)
--- NOTE | 2021-08-21 10:29 | P.PN ---
Subjective Progress Note Date: 08/21/21 Principal diagnosis: Respiratory failure. Shortness of breath, hypoxia, COVID 19 This is 65-year-old male patient who has a history of hyperlipidemia, hypertension, anxiety, PTSD. He developed symptoms of increasing shortness of breath cough and congestion headache fever chills approximately 4 days ago. He tested positive for COVID-19 and received monoclonal antibodies by [facility]. He presented to the emergency room early this morning with worsening symptoms. The patient is not vaccinated. Chest x-ray shows bilateral patchy opacities consistent with COVID-19 pneumonia. White count 5.8. Hemoglobin 15.3. Lymphocytes 0.7. D-dimer 0.33. Sodium 134. Potassium 4.4. Creatinine 0.84. AST 56,. ALT 34. Troponins negative 3. ProBNP 54. He's been initia liza on Decadron, Lovenox, vitamin supplements. He is seen today in consultation on the regular medical floor. He is already on by mouth liters high flow nasal cannula plus a nonrebreather mask. He is afebrile. Hemodynamically stable. Dyspneic with minimal conversation. Dyspneic with minimal exertion. On 07/29/2021 patient seen in follow-up on medical surgical floor, he is currently on 15 L per high flow nasal cannula his pulse ox is 87-91%, he is afebrile, hemodynamically stable, patient has been repositioning self and then, on his left side right side, and he states he did try some prone positioning briefly.He was started on Baricitinib yesterday and he is on Decadron 6 mg daily in addition to prophylactic Lovenox. Today's labs have been reviewed, his white blood cell count is 10.7, hemoglobin is 14.4, he is actually excellent renal profile are within normal limits, he is d-dimer on admission was negative at 0.33. LDH and CRP levels are still pending, pro-calcitonin level was negative at 0.07. On 07/30/2021 patient is seen in follow-up on medical surgical floor, he remains on high flow oxygen with 15 L high flow nasal cannula and 100% nonrebreather mask, and his pulse ox of 92-94%, and in a patient was confused, and agitated at times, he was removing his oxygen desaturating, safety equipment testing specialist is outside the door, doing supervision. Patient is breathing fairly comfortably, he feels like his breathing is a little easier today, has occasional cough, at times she is able to bring up some yellow and green colored phlegm, no fever or chills, he was started on Baricitinib on 07/28/2021, he is also on Decadron 6 mg daily, and Lovenox 40 mg daily. Remains on IV fluids with 0.9 normal saline at a rate of 75 ML per hour, he is on COVID-19 vitamins. Labs reviewed, white blood cell count is 12.9, hemoglobin is 14.6, platelet count is 369, his d-dimer slightly increased and is currently at 0.60, electrolytes and renal profile are within normal limits. His LDH today is increased and is up to 1634, patient had 4 sets of negative troponin at less than 0.012, proBNP was 107, pro-calcitonin level was negative at 0.07 On 08/01/2021 patient seen in follow-up on medical surgical floor. Patient is currently on 15 L and 100% nonrebreather mask, he had a rapid response team call early this morning for a concern of intermittent pleuritic chest discomfort, and pain in bilateral lower extremities. In addition patient was noted to be intermittently removing his oxygen and desaturating. Currently he is awake, he is laying in bed, however he is crying, he is complaining of pain, however he is not able to say where the pain is. O2 saturation is 91%. His been afebrile, hemodynamically stable, lower extremity Dopplers were negative for DVT. Patient is currently on Baricitinib, he is on Lovenox 40 mg daily, and Decadron. He is receiving IV fluids at a rate of 75 ML per hour. He is d-dimer is 0.76, white count is 13.3, hemoglobin is 13.7, electrolyte and renal profile are within normal limits, he is LDH has improved since admission, and is down to 572, his troponins were negative 3, and CRP is improving and is down to 2.2. On 08/02/2021 patient seen in follow-up in the intensive care unit, this morning she was emergently transferred to the ICU for worsening hypoxia, he was emergently intubated and placed on mechanical ventilator, currently sedated, on assist-control mode of ventilation with a rate of 36, tidal volume is 450, FiO2 100% and PEEP of 10. Patient is quite dyssyncronous with the ventilator, Nimbex has been ordered, awaiting starting the paralytic. This pulse ox is only 82%, and the PEEP has been increased to 14, awaiting follow-up blood gas. He is in sinus mechanism tachycardic with a rate of 116. He is currently on 0.9 with seen at the rate of 75 ML per hour, Diprivan is 50 mics per kilo per minute. Patient was given Nimbex 10 mg IV push, he is better synchronize, his peak air pressures 34, plateau is 31. His chest x-ray from this morning shows ET tube slightly low, just above the giovani, and we will pull back the ET tube 2 or 3 cm. There are bilateral multifocal increased opacities with worsening findings and the right upper lung. CT angiogram of the chest from yesterday showed no acute pulmonary embolism within the limitation of the study. Today's labs are still pending. Patient continues on Baricitinib, Lovenox 40 mg, Decadron. Pickett catheter has been placed, patient is producing urine, he required a brief norepinephrine support. We'll place his Lasix on hold, will discontinue oral medications. On 08/03/2021 patient is seen in follow-up in the intensive care unit, he is currently intubated, sedated and paralyzed and proned. Vent settings this morning are assist-control with a rate of 36, tidal volume is 450, FiO2 of 90% and PEEP of 10. However his pulse ox is only 86-80%, this morning's blood gas shows pO2 of 64, pCO2 41, and pH of 7.36. His peak pressure is 32, plateau is 34. Patient is currently on 0.9 normal saline at 75 ML per hour, fentanyl is a 0.5 mics per kilo per minute, norepinephrine drip is a 0.03 mics per minute, Nimbex is a 2 mics per minute per minute, Diprivan is a 50 mics per kilo per minute. He was started on tube feedings with vital HP at a rate of 30 with a goal of 34. Chest x-ray today is still pending, patient's chest x-ray will be taken when he is turned on his back at 10:00 this morning. Today's labs show uptrending white count at 17.3, hemoglobin is 13, his INR is 1.1, his d-dimer is 9.45, sodium is 136, potassium is 4.1, CO2 is 20, BUN 17 creatinine 0.67, his troponin increased to 0.3-0, cardiology has been consulted, his proBNP was 2100, cortisol level was 19, TSH was 0.031, but free T4 was 1.17, within normal limits. Pro-calcitonin level came back at 1.31 suggesting presence of bacterial infection and patient is on sitting up which we will discontinue this morning. Urinalysis has been sent shows no evidence of infection, patient will be pancultured. And placed on cefepime. His recent CT angiogram of the chest showed no acute PE, post recent lower extremity Dopplers from 07/30/2021 showed no evidence of DVT. Patient did have fever elevation through the night, with a T-max of 106.8F, patient received antipyretics, this morning his temperature is 100.1F. Blood cultures will be sent lactic acid will be obtained. Progress note dated 08/04/2021. The patient remains in the intensive care unit, in seen in room 266. Currently, he's on the volume assist control mode, rate 36, tidal volume 450, FiO2 100%, and PEEP of 14. Blood gases show a PaO2 of 108, pCO2 of 50, and pH is 7.3. The patient's on Nimbex at 2 mcg/kg/m, fall at 50 mcg/kg/m, fentanyl at 1.5 mcg/kg/h, saline at 75 mL an hour and vital high protein at 30 mL an hour. That is goal. We will attempt to wean the FiO2. The PEEP was increased from 14 up to 18 cm water and we'll add hydrocortisone 50 mg every 6 hours. The patient's cortisol level was a bit low. White count 19.4, hemoglobin 12, hematocrit 37.1, platelet count 383,000. Sodium 139, potassium 4, chlorides 112, CO2 22, anion gap 5, BUN 16, creatinine 0.47. Albumin is 2.2. Chest x-ray shows diffuse bilateral infiltrates, and CT angiogram was negative for pulmonary embolism. Progress note dated 08/05/2021. 65-year-old male, again seen in the ICU, room 266. The patient is currently on the volume assist control mode of ventilation, rate 36, tidal volume 450, FiO2 90%, and PEEP of 18. Blood gases show a PaO2 of 83, pCO2 42, and a pH is 7.38. The patient remains on Nimbex at 2 mcg/kg/m, propofol at 50 mcg/kg/m, and fentanyl 1.5 mcg/kg/h. The patient's getting saline at 75 mL an hour, and vital high protein at 30 mL an hour, which is goal. The plans for the patient today or to wean the FiO2 down, to reduce his fluids to KVO, and to give the patient Lasix [address] angiogram was negative for pulmonary embolism. White count 16.9, hemoglobin 11.4, hematocrit 36, and normal platelet count. Sodium 141, potassium 4.3, chlorides 113, CO2 23, anion gap 5, BUN 21, and creatinine 0.5. Albumin is 2.1. Microbiologic studies are negative. Chest x-ray shows bilateral patchy infiltrates and pneumonia, somewhat improved compared to the prior chest x-ray. Progress note dated 08/20/2020. This is a 65-year-old male, who was initially admitted back on July 28. He was admitted with a diagnosis of coronavirus associated pneumonia. He came to the intensive care unit on August 02, and was intubated on the . The patient had a tracheostomy and PEG tube placement on 08/18/2021. The patient remains on the mechanical ventilator, with the pressure assist control modality. The patient's inspiratory pressure is 17 cm water, inspiratory time is 1 second, the rate of 28 breaths per minute, FiO2 is 75%, and the PEEP is 15. Arterial blood gases show pO2 of 62, pCO2 47, and pH is 7.48. The patient is currently on saline at 20 mL an hour, fentanyl at 2 mcg/kg/h, propofol at 50 mcg/kg/m, and index of 4.5 mcg/kg/m, and vital AF at 22 mL an hour. That is go al. White count of 7.8, hemoglobin 9.6, hematocrit 28.6, and platelet count is 301,000. Sodium 142, potassium 3.2, chlorides 103, CO2 35, anion gap 4, BUN 25, and creatinine 0.45. LDH is 923 with a C-reactive protein of 24.4. Microbiology, thus far is negative. Chest x-ray shows diffuse bilateral infiltrates, largely unchanged. The tip of the tracheostomy tube was noted to 2.2 cm above the giovani. Progress note dated 08/21/2020. 65-year-old male, who was initially admitted back on July 28. He was admitted with a diagnosis of coronavirus associated pneumonia. He came to the intensive care unit on August 02, and was intubated on the same day. The patient had a tracheostomy and PEG tube placement on 08/18/2021, for failure to wean from mechanical ventilation. The patient remains on the pressure assist control modality, with an inspiratory pressure of 17 cm water, and inspiratory time of 1 second. In addition the patient has a rate of 28, FiO2 75%, and PEEP of 15. Blood gases show pO2 of 57, pCO2 48, and a pH is 7.48. Saline is running at 20 mL an hour. Fentanyl is running at 1 mcg/kg/h, propofol at 50 mcg/kg/m. Nimbex is currently on hold. He is getting vital AF at 22 mL an hour, which is his goal. White count 9, hemoglobin 9.2, hematocrit 28.6, platelet count normal. Sodium 141, potassium 3.6, chlorides 102, CO2 34, anion gap 5, BUN 20, with creatinine of 0.39. Glucose is 127. Albumin 2.3. Chest x- ray shows diffuse bilateral infiltrates, which are unchanged. The tracheostomy tube is in good position. Objective - Vital Signs Vital signs: Vital Signs Temp 99.7 F H 08/21/21 04:00 Pulse 84 08/21/21 07:00 Resp 28 H 08/21/21 07:00 BP 129/75 08/21/21 07:00 Pulse Ox 87 L 08/21/21 07:00 Intake & Output 08/20/21 08/21/21 08/21/21 18:59 06:59 18:59 Intake Total 9174.083 0678.886 365.907 Output Total 1905 660 75 Balance -522.808 829.886 290.907 Weight 118 kg 120 kg Intake: IV 230 342 23 Sodium Chloride 0.9% 1, 200 280 20 000 ml @ 20 mls/hr IV . Q24H [facility] Rx#:[id number] pressure bag 30 62 3 Intake, IV Titration 862.192 749.886 320.907 Amount Cisatracurium 200 mg In 247.788 143.832 200 Sodium Chloride 0.9% 180 ml @ 1 MCG/KG/MIN 6.24 mls/hr IV .Q24H [facility] Rx#: [id number] Norepinephrine 8 mg In 32.718 45.247 20.907 Sodium Chloride 0.9% 250 ml @ 0.05 MCG/KG/MIN 10. 739 mls/hr IV .Q24H [facility] Rx#:[id number] fentaNYL (PF). 1,000 mcg 210.586 170.907 In Sodium Chloride 0.9% 80 ml @ 0.5 MCG/KG/HR 5.2 mls/hr IV .[id number] [facility] Rx#:[id number] propofoL 1,000 mg In 371.10 389.9 100 Empty Bag 1 bag @ Titrate IV .Q0M [facility] Rx#: [id number] Tube Feeding 200 308 22 Other 90 90 Output: Urine 1905 660 75 Other: Voiding Method Indwelling Catheter Indwelling Catheter ABP, PAP, CO, CI - Last Documented Arterial Blood Pressure 118/53 - Exam No acute distress, sedated. The patient has a midline tracheostomy tube. HEENT examination is grossly unremarkable. Neck supple. Full range of motion. No adenopathy thyromegaly or neck vein distention. Cardiovascular examination reveals regular rhythm rate. S1-S2 normal. No S3 or S4. No discernible murmur noted. Heart sounds are distant. Heart rate 84 bpm. Lungs reveal diffuse bilateral rhonchi as well as bilateral crackles. Breath sounds equal bilaterally. There are no wheezes. Saturations are 90%. Abdomen soft bowel sounds are heard. No masses. A PEG tube is noted. Extremities are intact. No cyanosis clubbing or edema. Skin is without rash or lesion. Neurologic examination cannot be adequately assessed as the patient's currently sedated. - Labs CBC & Chem 7: 08/21/21 04:30 08/21/21 04:30 Labs: Abnormal Lab Results - Last 24 Hours (Table) 08/20/21 08/20/21 08/21/21 Range/Units 11:34 17:34 00:02 RBC (4.30-5.90) m/uL Hgb (13.0-17.5) gm/dL Hct (39.0-53.0) % MCV (80.0-100.0) fL ABG pH (7.35-7.45) ABG pCO2 (35-45) mmHg ABG pO2 (83-108) mmHg ABG HCO3 (21-25) mmol/L ABG Total CO2 (19-24) mmol/L ABG O2 Saturation (94-97) % Carbon Dioxide (22-30) mmol/L Creatinine (0.66-1.25) mg/dL Glucose (74-99) mg/dL POC Glucose (mg/dL) 137 H 194 H 126 H (75-99) mg/dL Calcium (8.4-10.2) mg/dL ALT (4-49) U/L Total Protein (6.3-8.2) g/dL Albumin (3.5-5.0) g/dL 08/21/21 08/21/21 08/21/21 Range/Units 04:30 04:30 06:00 RBC 2.79 L (4.30-5.90) m/uL Hgb 9.2 L (13.0-17.5) gm/dL Hct 28.6 L (39.0-53.0) % MCV 102.4 H (80.0-100.0) fL ABG pH 7.48 H (7.35-7.45) ABG pCO2 48 H (35-45) mmHg ABG pO2 57 L* (83-108) mmHg ABG HCO3 36 H (21-25) mmol/L ABG Total CO2 38 H (19-24) mmol/L ABG O2 Saturation 89.9 L (94-97) % Carbon Dioxide 34 H (22-30) mmol/L Creatinine 0.39 L (0.66-1.25) mg/dL Glucose 127 H (74-99) mg/dL POC Glucose (mg/dL) (75-99) mg/dL Calcium 7.9 L (8.4-10.2) mg/dL ALT 62 H (4-49) U/L Total Protein 5.0 L (6.3-8.2) g/dL Albumin 2.3 L (3.5-5.0) g/dL 08/21/21 Range/Units 06:08 RBC (4.30-5.90) m/uL Hgb (13.0-17.5) gm/dL Hct (39.0-53.0) % MCV (80.0-100.0) fL ABG pH (7.35-7.45) ABG pCO2 (35-45) mmHg ABG pO2 (83-108) mmHg ABG HCO3 (21-25) mmol/L ABG Total CO2 (19-24) mmol/L ABG O2 Saturation (94-97) % Carbon Dioxide (22-30) mmol/L Creatinine (0.66-1.25) mg/dL Glucose (74-99) mg/dL POC Glucose (mg/dL) 132 H (75-99) mg/dL Calcium (8.4-10.2) mg/dL ALT (4-49) U/L Total Protein (6.3-8.2) g/dL Albumin (3.5-5.0) g/dL Assessment and Plan Assessment: Acute hypoxemic respiratory failure secondary to coronavirus associated pneumonia, with initial admission on 07/28/2021. Status post intubation and mechanical ventilation for respiratory failure on 08/02/2021, and because of failure to wean from mechanical ventilation, tracheostomy and PEG tube placement on 08/18/2021. CT angiogram negative for pulmonary embolism. Elevated troponins, likely related to supply/demand mismatch. Chronic systolic CHF. History of hypertension. History of CAD. Hyperlipidemia. Chronic back pain. History of alcohol use. History of anxiety/PTSD. Plan: Plan dated 08/04/2021. The patient remains on the mechanical ventilator. We will increase the PEEP levels to 18, and try to wean the FiO2. Because his cortisol level is a bit low, we added hydrocortisone, 50 mg IV push, every 6 hours. The patient remains on cefepime empirically. The patient also is on Decadron and Lovenox. The patient is maintained on vitamin C, vitamin D3, and zinc. He remains on Nimbex, propofol, and fentanyl. He's getting tube feedings at goal. We will continue to follow make recommendations where appropriate. Prognosis is guarded. Plan dated 08/05/2021. The patient remains sedated and paralyzed. We will attempt to wean the Nimbex off. The patient will get Lasix 40 mg IV push today. In addition, we will attempt to wean the FiO2. Also, we'll cut back on the fluids. Additional recommendations and suggestions are forthcoming. The patient remains on Lovenox, and vitamins. We will add back Decadron and DC the hydrocortisone. Additional recommendations and suggestions are forthcoming. The patient remains on cefepime empirically. Prognosis is guarded. Plan dated 08/20/2021. The patient's labs, x-rays, and medications are reviewed. The patient's FiO2 on the ventilator is reduced from 80%, down to 75%. The patient remains on fentanyl, propofol, and Nimbex. The patient is receiving vital AF at 22 mL an hour. That is goal. The patient did undergo tracheostomy and PEG tube placement on 08/18/2021. The patient remains on Decadron and Lovenox. Additional recommendations and suggestions are forthcoming. Overall prognosis remains very guarded. No additional recommendations are made at this time. We will continue to follow and make recommendations where appropriate. Plan dated 08/21/2021. The patient's labs, x-rays, medications are all reviewed. No changes on the mechanical ventilator today. The patient remains on fentanyl and propofol, and currently, the Nimbex is on hold. The patient is receiving tube feeds. The patient underwent tracheostomy and PEG tube placement on 08/18/2021. The patient remains on Decadron and Lovenox. We will continue to follow the patient and make recommendations where appropriate. Prognosis is certainly very guarded. Time with Patient: Greater than 30
[2021-08-21] MEDS: NOREPINEPHRINE 8 MG in SODIUM CHLORIDE 0.9% 250 ML IV SCH ×2 (10:45→21:00)
[2021-08-21 11:52] LABS: Glucose,Whole Blood 104 mg/dL (75-99)
--- NOTE | 2021-08-21 14:22 | US ---
EXAMINATION TYPE: US thyroid st tissue head/neck DATE OF EXAM: 08/21/2021 COMPARISON: NONE CLINICAL HISTORY: right side abscess?. Right lateral neck swelling/ pt unresponsive in ICU Right lateral neck scanned in area of swelling- superficial edema visualized in area of swelling, n o sizeable fluid collection visualized The 8 images saved show mild subcutaneous edema without well formed fluid collection or drainable abs cess at area of clinical concern. IMPRESSION: As above
--- NOTE | 2021-08-21 14:51 | P.PN ---
Subjective Progress Note Date: 08/21/21 CHIEF COMPLAINT: Covid 19 pneumonia HISTORY OF PRESENT ILLNESS: Patient is status post tracheostomy and PEG tube placement on 08/18/2021. Patient is tolerating tube feedings. PHYSICAL EXAM: VITAL SIGNS: Reviewed. GENERAL: Well-developed in no acute distress. HEENT: Tracheostomy site clean dry and intact ABDOMEN: Soft. Nondistended. Nontender. PEG tube site clean dry and intact ASSESSMENT: 1. Acute hypoxic respiratory failure secondary to COVID-19 pneumonia. Patient status post tracheostomy placement 2. Severe protein calorie malnutrition status post PEG tube placement PLAN: -Tube feeding advancement per dietitian -Continue ICU management -Continue supportive care Physician Can Reforming Machine Operator note has been reviewed by physician. Signing provider agrees with the documented findings, assessment, and plan of care. Objective - Vital Signs Vital signs: Vital Signs Temp 98.9 F 08/21/21 09:00 Pulse 96 08/21/21 14:00 Resp 28 H 08/21/21 14:00 BP 129/75 08/21/21 08:00 Pulse Ox 92 L 08/21/21 14:00 Intake & Output 08/20/21 08/21/21 08/21/21 18:59 06:59 18:59 Intake Total 5174.594 1914.886 958.302 Output Total 7218 415 7459 Balance -522.808 829.886 -791.698 Weight 118 kg 120 kg Intake: IV 230 342 184 Sodium Chloride 0.9% 1, 200 280 160 000 ml @ 20 mls/hr IV . Q24H [facility] Rx#:[id number] pressure bag 30 62 24 Intake, IV Titration 862.192 749.886 642.302 Amount Cisatracurium 200 mg In 247.788 143.832 235.048 Sodium Chloride 0.9% 180 ml @ 1 MCG/KG/MIN 6.24 mls/hr IV .Q24H [facility] Rx#: [id number] Norepinephrine 8 mg In 32.718 45.247 20.907 Sodium Chloride 0.9% 250 ml @ 0.05 MCG/KG/MIN 10. 739 mls/hr IV .Q24H [facility] Rx#:[id number] fentaNYL (PF). 1,000 mcg 210.586 170.907 99.147 In Sodium Chloride 0.9% 80 ml @ 0.5 MCG/KG/HR 5.2 mls/hr IV .[id number] [facility] Rx#:[id number] propofoL 1,000 mg In 371.10 389.9 287.2 Empty Bag 1 bag @ Titrate IV .Q0M [facility] Rx#: [id number] Tube Feeding 200 308 132 Other 90 90 Output: Urine 4264 552 2712 Other: Voiding Method Indwelling Catheter Indwelling Catheter Indwelling Catheter ABP, PAP, CO, CI - Last Documented Arterial Blood Pressure 82/52 - Labs CBC & Chem 7: 08/21/21 04:30 08/21/21 04:30 Labs: Abnormal Lab Results - Last 24 Hours (Table) 08/20/21 08/21/21 08/21/21 Range/Units 17:34 00:02 04:30 RBC 2.79 L (4.30-5.90) m/uL Hgb 9.2 L (13.0-17.5) gm/dL Hct 28.6 L (39.0-53.0) % MCV 102.4 H (80.0-100.0) fL ABG pH (7.35-7.45) ABG pCO2 (35-45) mmHg ABG pO2 (83-108) mmHg ABG HCO3 (21-25) mmol/L ABG Total CO2 (19-24) mmol/L ABG O2 Saturation (94-97) % Carbon Dioxide (22-30) mmol/L Creatinine (0.66-1.25) mg/dL Glucose (74-99) mg/dL POC Glucose (mg/dL) 194 H 126 H (75-99) mg/dL Calcium (8.4-10.2) mg/dL ALT (4-49) U/L Total Protein (6.3-8.2) g/dL Albumin (3.5-5.0) g/dL 08/21/21 08/21/21 08/21/21 Range/Units 04:30 06:00 06:08 RBC (4.30-5.90) m/uL Hgb (13.0-17.5) gm/dL Hct (39.0-53.0) % MCV (80.0-100.0) fL ABG pH 7.48 H (7.35-7.45) ABG pCO2 48 H (35-45) mmHg ABG pO2 57 L* (83-108) mmHg ABG HCO3 36 H (21-25) mmol/L ABG Total CO2 38 H (19-24) mmol/L ABG O2 Saturation 89.9 L (94-97) % Carbon Dioxide 34 H (22-30) mmol/L Creatinine 0.39 L (0.66-1.25) mg/dL Glucose 127 H (74-99) mg/dL POC Glucose (mg/dL) 132 H (75-99) mg/dL Calcium 7.9 L (8.4-10.2) mg/dL ALT 62 H (4-49) U/L Total Protein 5.0 L (6.3-8.2) g/dL Albumin 2.3 L (3.5-5.0) g/dL 08/21/21 Range/Units 11:50 RBC (4.30-5.90) m/uL Hgb (13.0-17.5) gm/dL Hct (39.0-53.0) % MCV (80.0-100.0) fL ABG pH (7.35-7.45) ABG pCO2 (35-45) mmHg ABG pO2 (83-108) mmHg ABG HCO3 (21-25) mmol/L ABG Total CO2 (19-24) mmol/L ABG O2 Saturation (94-97) % Carbon Dioxide (22-30) mmol/L Creatinine (0.66-1.25) mg/dL Glucose (74-99) mg/dL POC Glucose (mg/dL) 104 H (75-99) mg/dL Calcium (8.4-10.2) mg/dL ALT (4-49) U/L Total Protein (6.3-8.2) g/dL Albumin (3.5-5.0) g/dL
[2021-08-21] MEDS: SODIUM CHLORIDE 0.9% 500 ML 500 ML IV SCH (16:24)
[2021-08-21] MEDS: ATORVASTATIN 40 MG TAB PO SCH (17:50)
[2021-08-21 17:53] LABS: Glucose,Whole Blood 178 mg/dL (75-99)
[2021-08-21 23:31] LABS: Glucose,Whole Blood 172 mg/dL (75-99)
[2021-08-22] MEDS: ARTIFICIAL TEARS-HYPROMELLOSE DROPS 15 ML BTL BOTH EYES SCH ×5 (04:06→20:15)
[2021-08-22 04:22] LABS: HCT 28.1 % (39.0-53.0); Hypochromasia Moderate; MCH 32.8 pg (25.0-35.0); MCV 102.3 fL (80.0-100.0); Macrocytosis Slight; Mean Platelet Volume 8.8; Platelet Count 305 k/uL (150-450); Poikilocytosis Slight; RBC 2.74 m/uL (4.30-5.90); RDW 14.5 % (11.5-15.5); WBC 10.1 k/uL (3.8-10.6)
[2021-08-22 04:44] LABS: ALT 59 U/L (4-49); AST 38 U/L (17-59); African American GFR (CKD) >90 (>60 ml/min/1.73 sqM); Albumin 2.3 g/dL (3.5-5.0); Alkaline Phosphatase 123 U/L (38-126); Anion Gap 7 mmol/L; Blood Urea Nitrogen 21 mg/dL (9-20); Carbon Dioxide 35 mmol/L (22-30); Chloride 100 mmol/L (98-107); Glucose 122 mg/dL (74-99); Non-African American GFR(CKD) >90 (>60 ml/min/1.73 sqM); Potassium 3.4 mmol/L (3.5-5.1); Sodium 142 mmol/L (137-145); Total Bilirubin 0.6 mg/dL (0.2-1.3); Total Protein 5.3 g/dL (6.3-8.2)
[2021-08-22 06:01] LABS: ABG Base Excess 15.6 mmol/L; ABG HCO3 39 mmol/L (21-25); ABG Oxygen Saturation 91.4 % (94-97); ABG PCO2 49 mmHg (35-45); ABG TCO2 40 mmol/L (19-24); Allen Test Performed? Yes
[2021-08-22 06:07] LABS: ABG PO2 59 mmHg (83-108)
[2021-08-22] MEDS: INSULIN ASPART (NovoLOG) 100 UNIT/ML VIAL SQ SCH ×3 (06:46→17:16)
[2021-08-22] MEDS: fentaNYL (PF). 1,000 MCG in SODIUM CHLORIDE 0.9% 80 ML IV SCH ×3 (06:54→21:35)
[2021-08-22] MEDS: INSULIN DETEMIR (LEVEMIR) 100 UNIT/ML SYR SQ SCH ×2 (06:58→21:36)
[2021-08-22] MEDS: POTASSIUM BICARBONATE/CIT AC 20 MEQ TABLET.EFF NG-TUBE SCH ×4 (06:58→19:04)
[2021-08-22] MEDS: ASPIRIN 81 MG PO SCH ×2 (08:53→21:36)
[2021-08-22] MEDS: DEXAMETHASONE SOD PHOSPHATE 10 MG/ML 1 ML VIAL IVP SCH (08:53)
[2021-08-22] MEDS: CHLORHEXIDINE GLUCONATE 15 ML CUP MUCOUS MEM SCH ×2 (08:53→21:35)
[2021-08-22] MEDS: ASCORBIC ACID 500 MG TAB PO SCH (08:53)
[2021-08-22] MEDS: CHOLECALCIFEROL 25 MCG (1000 IU) TABLET PO SCH (08:54)
[2021-08-22] MEDS: FUROSEMIDE 10 MG/ML 4 ML VIAL IV SCH ×2 (08:54→21:36)
[2021-08-22] MEDS: ZINC SULFATE 220 MG CAP PO SCH (08:54)
[2021-08-22] MEDS: PANTOPRAZOLE 40 MG/10 ML VIAL IVP SCH (08:54)
[2021-08-22] MEDS: ENOXAPARIN 40 MG/0.4 ML SYRINGE SQ SCH (08:54)
--- NOTE | 2021-08-22 09:35 | XR ---
EXAMINATION TYPE: XR chest 1V portable DATE OF EXAM: 08/22/2021 COMPARISON: 08/21/2021 INDICATION: Tracheostomy, covid TECHNIQUE: Single frontal view of the chest is obtained. FINDINGS: The heart size is normal. The pulmonary vasculature is prominent. Diffuse increased lung markings are present bilaterally. Tracheostomy tuber is present with the tip 2 .8 cm above the giovani. Right-sided PICC line is present with the tip in the superior vena cava regio n. IMPRESSION: 1. Worsening diffuse bilateral lung infiltrates. 2. Lines and catheters discussed above
--- NOTE | 2021-08-22 10:28 | P.PN ---
Subjective Progress Note Date: 08/22/21 Principal diagnosis: Respiratory failure. Shortness of breath, hypoxia, COVID 19 This is 65-year-old male patient who has a history of hyperlipidemia, hypertension, anxiety, PTSD. He developed symptoms of increasing shortness of breath cough and congestion headache fever chills approximately 4 days ago. He tested positive for COVID-19 and received monoclonal antibodies by [facility]. He presented to the emergency room early this morning with worsening symptoms. The patient is not vaccinated. Chest x-ray shows bilateral patchy opacities consistent with COVID-19 pneumonia. White count 5.8. Hemoglobin 15.3. Lymphocytes 0.7. D-dimer 0.33. Sodium 134. Potassium 4.4. Creatinine 0.84. AST 56,. ALT 34. Troponins negative 3. ProBNP 54. He's been initia liza on Decadron, Lovenox, vitamin supplements. He is seen today in consultation on the regular medical floor. He is already on by mouth liters high flow nasal cannula plus a nonrebreather mask. He is afebrile. Hemodynamically stable. Dyspneic with minimal conversation. Dyspneic with minimal exertion. On 07/29/2021 patient seen in follow-up on medical surgical floor, he is currently on 15 L per high flow nasal cannula his pulse ox is 87-91%, he is afebrile, hemodynamically stable, patient has been repositioning self and then, on his left side right side, and he states he did try some prone positioning briefly.He was started on Baricitinib yesterday and he is on Decadron 6 mg daily in addition to prophylactic Lovenox. Today's labs have been reviewed, his white blood cell count is 10.7, hemoglobin is 14.4, he is actually excellent renal profile are within normal limits, he is d-dimer on admission was negative at 0.33. LDH and CRP levels are still pending, pro-calcitonin level was negative at 0.07. On 07/30/2021 patient is seen in follow-up on medical surgical floor, he remains on high flow oxygen with 15 L high flow nasal cannula and 100% nonrebreather mask, and his pulse ox of 92-94%, and in a patient was confused, and agitated at times, he was removing his oxygen desaturating, occupational health and safety officer is outside the door, doing supervision. Patient is breathing fairly comfortably, he feels like his breathing is a little easier today, has occasional cough, at times she is able to bring up some yellow and green colored phlegm, no fever or chills, he was started on Baricitinib on 07/28/2021, he is also on Decadron 6 mg daily, and Lovenox 40 mg daily. Remains on IV fluids with 0.9 normal saline at a rate of 75 ML per hour, he is on COVID-19 vitamins. Labs reviewed, white blood cell count is 12.9, hemoglobin is 14.6, platelet count is 369, his d-dimer slightly increased and is currently at 0.60, electrolytes and renal profile are within normal limits. His LDH today is increased and is up to 1634, patient had 4 sets of negative troponin at less than 0.012, proBNP was 107, pro-calcitonin level was negative at 0.07 On 08/01/2021 patient seen in follow-up on medical surgical floor. Patient is currently on 15 L and 100% nonrebreather mask, he had a rapid response team call early this morning for a concern of intermittent pleuritic chest discomfort, and pain in bilateral lower extremities. In addition patient was noted to be intermittently removing his oxygen and desaturating. Currently he is awake, he is laying in bed, however he is crying, he is complaining of pain, however he is not able to say where the pain is. O2 saturation is 91%. His been afebrile, hemodynamically stable, lower extremity Dopplers were negative for DVT. Patient is currently on Baricitinib, he is on Lovenox 40 mg daily, and Decadron. He is receiving IV fluids at a rate of 75 ML per hour. He is d-dimer is 0.76, white count is 13.3, hemoglobin is 13.7, electrolyte and renal profile are within normal limits, he is LDH has improved since admission, and is down to 572, his troponins were negative 3, and CRP is improving and is down to 2.2. On 08/02/2021 patient seen in follow-up in the intensive care unit, this morning she was emergently transferred to the ICU for worsening hypoxia, he was emergently intubated and placed on mechanical ventilator, currently sedated, on assist-control mode of ventilation with a rate of 36, tidal volume is 450, FiO2 100% and PEEP of 10. Patient is quite dyssyncronous with the ventilator, Nimbex has been ordered, awaiting starting the paralytic. This pulse ox is only 82%, and the PEEP has been increased to 14, awaiting follow-up blood gas. He is in sinus mechanism tachycardic with a rate of 116. He is currently on 0.9 with seen at the rate of 75 ML per hour, Diprivan is 50 mics per kilo per minute. Patient was given Nimbex 10 mg IV push, he is better synchronize, his peak air pressures 34, plateau is 31. His chest x-ray from this morning shows ET tube slightly low, just above the giovani, and we will pull back the ET tube 2 or 3 cm. There are bilateral multifocal increased opacities with worsening findings and the right upper lung. CT angiogram of the chest from yesterday showed no acute pulmonary embolism within the limitation of the study. Today's labs are still pending. Patient continues on Baricitinib, Lovenox 40 mg, Decadron. Pickett catheter has been placed, patient is producing urine, he required a brief norepinephrine support. We'll place his Lasix on hold, will discontinue oral medications. On 08/03/2021 patient is seen in follow-up in the intensive care unit, he is currently intubated, sedated and paralyzed and proned. Vent settings this morning are assist-control with a rate of 36, tidal volume is 450, FiO2 of 90% and PEEP of 10. However his pulse ox is only 86-80%, this morning's blood gas shows pO2 of 64, pCO2 41, and pH of 7.36. His peak pressure is 32, plateau is 34. Patient is currently on 0.9 normal saline at 75 ML per hour, fentanyl is a 0.5 mics per kilo per minute, norepinephrine drip is a 0.03 mics per minute, Nimbex is a 2 mics per minute per minute, Diprivan is a 50 mics per kilo per minute. He was started on tube feedings with vital HP at a rate of 30 with a goal of 34. Chest x-ray today is still pending, patient's chest x-ray will be taken when he is turned on his back at 10:00 this morning. Today's labs show uptrending white count at 17.3, hemoglobin is 13, his INR is 1.1, his d-dimer is 9.45, sodium is 136, potassium is 4.1, CO2 is 20, BUN 17 creatinine 0.67, his troponin increased to 0.3-0, cardiology has been consulted, his proBNP was 2100, cortisol level was 19, TSH was 0.031, but free T4 was 1.17, within normal limits. Pro-calcitonin level came back at 1.31 suggesting presence of bacterial infection and patient is on sitting up which we will discontinue this morning. Urinalysis has been sent shows no evidence of infection, patient will be pancultured. And placed on cefepime. His recent CT angiogram of the chest showed no acute PE, post recent lower extremity Dopplers from 07/30/2021 showed no evidence of DVT. Patient did have fever elevation through the night, with a T-max of 106.8F, patient received antipyretics, this morning his temperature is 100.1F. Blood cultures will be sent lactic acid will be obtained. Progress note dated 08/04/2021. The patient remains in the intensive care unit, in seen in room 266. Currently, he's on the volume assist control mode, rate 36, tidal volume 450, FiO2 100%, and PEEP of 14. Blood gases show a PaO2 of 108, pCO2 of 50, and pH is 7.3. The patient's on Nimbex at 2 mcg/kg/m, fall at 50 mcg/kg/m, fentanyl at 1.5 mcg/kg/h, saline at 75 mL an hour and vital high protein at 30 mL an hour. That is goal. We will attempt to wean the FiO2. The PEEP was increased from 14 up to 18 cm water and we'll add hydrocortisone 50 mg every 6 hours. The patient's cortisol level was a bit low. White count 19.4, hemoglobin 12, hematocrit 37.1, platelet count 383,000. Sodium 139, potassium 4, chlorides 112, CO2 22, anion gap 5, BUN 16, creatinine 0.47. Albumin is 2.2. Chest x-ray shows diffuse bilateral infiltrates, and CT angiogram was negative for pulmonary embolism. Progress note dated 08/05/2021. 65-year-old male, again seen in the ICU, room 266. The patient is currently on the volume assist control mode of ventilation, rate 36, tidal volume 450, FiO2 90%, and PEEP of 18. Blood gases show a PaO2 of 83, pCO2 42, and a pH is 7.38. The patient remains on Nimbex at 2 mcg/kg/m, propofol at 50 mcg/kg/m, and fentanyl 1.5 mcg/kg/h. The patient's getting saline at 75 mL an hour, and vital high protein at 30 mL an hour, which is goal. The plans for the patient today or to wean the FiO2 down, to reduce his fluids to KVO, and to give the patient Lasix [address] angiogram was negative for pulmonary embolism. White count 16.9, hemoglobin 11.4, hematocrit 36, and normal platelet count. Sodium 141, potassium 4.3, chlorides 113, CO2 23, anion gap 5, BUN 21, and creatinine 0.5. Albumin is 2.1. Microbiologic studies are negative. Chest x-ray shows bilateral patchy infiltrates and pneumonia, somewhat improved compared to the prior chest x-ray. Progress note dated 08/20/2020. This is a 65-year-old male, who was initially admitted back on July 28. He was admitted with a diagnosis of coronavirus associated pneumonia. He came to the intensive care unit on August 02, and was intubated on the . The patient had a tracheostomy and PEG tube placement on 08/18/2021. The patient remains on the mechanical ventilator, with the pressure assist control modality. The patient's inspiratory pressure is 17 cm water, inspiratory time is 1 second, the rate of 28 breaths per minute, FiO2 is 75%, and the PEEP is 15. Arterial blood gases show pO2 of 62, pCO2 47, and pH is 7.48. The patient is currently on saline at 20 mL an hour, fentanyl at 2 mcg/kg/h, propofol at 50 mcg/kg/m, and index of 4.5 mcg/kg/m, and vital AF at 22 mL an hour. That is go al. White count of 7.8, hemoglobin 9.6, hematocrit 28.6, and platelet count is 301,000. Sodium 142, potassium 3.2, chlorides 103, CO2 35, anion gap 4, BUN 25, and creatinine 0.45. LDH is 923 with a C-reactive protein of 24.4. Microbiology, thus far is negative. Chest x-ray shows diffuse bilateral infiltrates, largely unchanged. The tip of the tracheostomy tube was noted to 2.2 cm above the giovani. Progress note dated 08/21/2020. 65-year-old male, who was initially admitted back on July 28. He was admitted with a diagnosis of coronavirus associated pneumonia. He came to the intensive care unit on August 02, and was intubated on the same day. The patient had a tracheostomy and PEG tube placement on 08/18/2021, for failure to wean from mechanical ventilation. The patient remains on the pressure assist control modality, with an inspiratory pressure of 17 cm water, and inspiratory time of 1 second. In addition the patient has a rate of 28, FiO2 75%, and PEEP of 15. Blood gases show pO2 of 57, pCO2 48, and a pH is 7.48. Saline is running at 20 mL an hour. Fentanyl is running at 1 mcg/kg/h, propofol at 50 mcg/kg/m. Nimbex is currently on hold. He is getting vital AF at 22 mL an hour, which is his goal. White count 9, hemoglobin 9.2, hematocrit 28.6, platelet count normal. Sodium 141, potassium 3.6, chlorides 102, CO2 34, anion gap 5, BUN 20, with creatinine of 0.39. Glucose is 127. Albumin 2.3. Chest x- ray shows diffuse bilateral infiltrates, which are unchanged. The tracheostomy tube is in good position. Progress note dated 08/22/2021. 65-year-old male, initially admitted back on July 28. He was admitted with a diagnosis of coronavirus associated pneumonia. He came to the intensive care unit August 02, and required intubation on the same day. The patient had a tracheostomy and PEG tube placed, first 2021, for failure to wean from mec hanical ventilation. The patient remains on the ventilator. The patient is on the pressure assist control mode, with an inspiratory pressure of 17 cm water, and inspiratory time of 1 second. The patient's respiratory rate is 28, with an FiO2 of 70%, and PEEP of 15. Blood gases show pO2 of 50, pCO2 49, pH is 7.5. Patient remains on saline at 20 mL an hour, fentanyl 1 mcg/kg/h, norepinephrine at 3 mcg/m, propofol at 75 mcg/kg/m, and Nimbex has been weaned off. Labs include a white count 10.1, hemoglobin 9, hematocrit 20 point and platelet count 305,000. Sodium 142, potassium 3.4, chlorides 100, CO2 35, anion gap 7, BUN 21, and creatinine 0.35. Microbiology is negative. Chest x-ray shows worsening bilateral infiltrates. Objective - Vital Signs Vital signs: Vital Signs Temp 99.2 F 08/22/21 04:00 Pulse 68 08/22/21 07:00 Resp 28 H 08/22/21 07:00 BP 92/56 08/22/21 07:00 Pulse Ox 95 08/22/21 07:00 Intake & Output 08/21/21 08/22/21 08/22/21 18:59 06:59 18:59 Intake Total 1662.932 3046.016 105.078 Output Total 1994 1610 Balance -587.175 -567.984 105.078 Weight 114.2 kg Intake: IV 299 276 Sodium Chloride 0.9% 1, 260 240 000 ml @ 20 mls/hr IV . Q24H [facility] Rx#:[id number] pressure bag 39 36 Intake, IV Titration 866.825 434.016 105.078 Amount Cisatracurium 200 mg In 324.904 Sodium Chloride 0.9% 180 ml @ 1 MCG/KG/MIN 6.24 mls/hr IV .Q24H [facility] Rx#: [id number] Norepinephrine 8 mg In 20.907 79.763 44.178 Sodium Chloride 0.9% 250 ml @ 0.05 MCG/KG/MIN 10. 739 mls/hr IV .Q24H [facility] Rx#:[id number] fentaNYL (PF). 1,000 mcg 133.814 154.253 In Sodium Chloride 0.9% 80 ml @ 0.5 MCG/KG/HR 5.2 mls/hr IV .[id number] [facility] Rx#:[id number] propofoL 1,000 mg In 387.2 200.00 60.9 Empty Bag 1 bag @ Titrate IV .Q0M [facility] Rx#: [id number] Tube Feeding 242 242 Other 90 Output: Urine 1994 1609 Other: Voiding Method Indwelling Catheter Indwelling Catheter ABP, PAP, CO, CI - Last Documented Arterial Blood Pressure 102/59 - Exam No acute distress, sedated. The patient has a midline tracheostomy tube. HEENT examination is grossly unremarkable. Neck supple. Full range of motion. No adenopathy thyromegaly or neck vein distention. Cardiovascular examination reveals regular rhythm rate. S1-S2 normal. No S3 or S4. No discernible murmur noted. Heart sounds are distant. Heart rate 68 bpm. Lungs reveal diffuse bilateral rhonchi as well as bilateral crackles. Breath sounds equal bilaterally. There are no wheezes. Saturations are 93%. Abdomen soft bowel sounds are heard. No masses. A PEG tube is noted. Extremities are intact. No cyanosis clubbing or edema. Skin is without rash or lesion. Neurologic examination cannot be adequately assessed as the patient's currently sedated. - Labs CBC & Chem 7: 08/22/21 04:00 08/22/21 04:00 Labs: Abnormal Lab Results - Last 24 Hours (Table) 08/21/21 08/21/21 08/21/21 Range/Units 11:50 17:52 23:29 RBC (4.30-5.90) m/uL Hgb (13.0-17.5) gm/dL Hct (39.0-53.0) % MCV (80.0-100.0) fL ABG pH (7.35-7.45) ABG pCO2 (35-45) mmHg ABG pO2 (83-108) mmHg ABG HCO3 (21-25) mmol/L ABG Total CO2 (19-24) mmol/L ABG O2 Saturation (94-97) % Potassium (3.5-5.1) mmol/L Carbon Dioxide (22-30) mmol/L BUN (9-20) mg/dL Creatinine (0.66-1.25) mg/dL Glucose (74-99) mg/dL POC Glucose (mg/dL) 104 H 178 H 172 H (75-99) mg/dL Calcium (8.4-10.2) mg/dL ALT (4-49) U/L Total Protein (6.3-8.2) g/dL Albumin (3.5-5.0) g/dL 08/22/21 08/22/21 08/22/21 Range/Units 04:00 04:00 05:58 RBC 2.74 L (4.30-5.90) m/uL Hgb 9.0 L (13.0-17.5) gm/dL Hct 28.1 L (39.0-53.0) % MCV 102.3 H (80.0-100.0) fL ABG pH 7.50 H (7.35-7.45) ABG pCO2 49 H (35-45) mmHg ABG pO2 59 L* (83-108) mmHg ABG HCO3 39 H (21-25) mmol/L ABG Total CO2 40 H (19-24) mmol/L ABG O2 Saturation 91.4 L (94-97) % Potassium 3.4 L (3.5-5.1) mmol/L Carbon Dioxide 35 H (22-30) mmol/L BUN 21 H (9-20) mg/dL Creatinine 0.35 L (0.66-1.25) mg/dL Glucose 122 H (74-99) mg/dL POC Glucose (mg/dL) (75-99) mg/dL Calcium 8.0 L (8.4-10.2) mg/dL ALT 59 H (4-49) U/L Total Protein 5.3 L (6.3-8.2) g/dL Albumin 2.3 L (3.5-5.0) g/dL Microbiology - Last 24 Hours (Table) 08/22/21 04:45 Wound Culture - Preliminary Trachea Assessment and Plan Assessment: Acute hypoxemic respiratory failure secondary to coronavirus associated pneumonia, with initial admission on 07/28/2021. Status post intubation and mechanical ventilation for respiratory failure on 08/02/2021, and because of failure to wean from mechanical ventilation, tracheostomy and PEG tube placement on 08/18/2021. CT angiogram negative for pulmonary embolism. Elevated troponins, likely related to supply/demand mismatch. Chronic systolic CHF. History of hypertension. History of CAD. Hyperlipidemia. Chronic back pain. History of alcohol use. History of anxiety/PTSD. Plan: Plan dated 08/04/2021. The patient remains on the mechanical ventilator. We will increase the PEEP levels to 18, and try to wean the FiO2. Because his cortisol level is a bit low, we added hydrocortisone, 50 mg IV push, every 6 hours. The patient remains on cefepime empirically. The patient also is on Decadron and Lovenox. The patient is maintained on vitamin C, vitamin D3, and zinc. He remains on Nimbex, propofol, and fentanyl. He's getting tube feedings at goal. We will continue to follow make recommendations where appropriate. Prognosis is guarded. Plan dated 08/05/2021. The patient remains sedated and paralyzed. We will attempt to wean the Nimbex off. The patient will get Lasix 40 mg IV push today. In addition, we will attempt to wean the FiO2. Also, we'll cut back on the fluids. Additional recommendations and suggestions are forthcoming. The patient remains on Lovenox, and vitamins. We will add back Decadron and DC the hydrocortisone. Additional recommendations and suggestions are forthcoming. The patient remains on cefepime empirically. Prognosis is guarded. Plan dated 08/20/2021. The patient's labs, x-rays, and medications are reviewed. The patient's FiO2 on the ventilator is reduced from 80%, down to 75%. The patient remains on fentanyl, propofol, and Nimbex. The patient is receiving vital AF at 22 mL an hour. That is goal. The patient did undergo tracheostomy and PEG tube placement on 08/18/2021. The patient remains on Decadron and Lovenox. A dditional recommendations and suggestions are forthcoming. Overall prognosis remains very guarded. No additional recommendations are made at this time. We will continue to follow and make recommendations where appropriate. Plan dated 08/21/2021. The patient's labs, x-rays, medications are all reviewed. No changes on the mechanical ventilator today. The patient remains on fentanyl and propofol, and currently, the Nimbex is on hold. The patient is receiving tube feeds. The patient underwent tracheostomy and PEG tube placement on 08/18/2021. The patient remains on Decadron and Lovenox. We will continue to follow the patient and make recommendations where appropriate. Prognosis is certainly very guarded. Plan dated 08/22/2021. The patient's labs, x-rays, and medications are reviewed. The patient has been weaned off the Nimbex. He remains on fentanyl, propofol, and a small amount of norepinephrine at 3 mcg/m. Arterial blood gases are reasonable. He remains on the pressure assist control mode. He is receiving tube feedings at goal. We will continue to follow make recommendations were appropriate. Remains on vitamins, Decadron, and Lovenox. Prognosis is guarded. Chest x-ray appears to be a bit worse. We will continue to follow this. Time with Patient: Greater than 30
[2021-08-22 11:18] LABS: Glucose,Whole Blood 120 mg/dL (75-99)
--- NOTE | 2021-08-22 14:17 | P.PN ---
Subjective Progress Note Date: 08/22/21 CHIEF COMPLAINT: Covid 19 pneumonia HISTORY OF PRESENT ILLNESS: Patient is status post tracheostomy and PEG tube placement on 08/18/2021. Patient is tolerating tube feedings. Tracheostomy site drainage cultured PHYSICAL EXAM: VITAL SIGNS: Reviewed. GENERAL: Well-developed in no acute distress. HEENT: Tracheostomy site with drainage ABDOMEN: Soft. Nondistended. Nontender. PEG tube site clean dry and intact ASSESSMENT: 1. Acute hypoxic respiratory failure secondary to COVID-19 pneumonia. Patient status post tracheostomy placement 2. Severe protein calorie malnutrition status post PEG tube placement PLAN: -Continue tube feedings -Continue ICU management -Continue supportive care Physician Manager Universal note has been reviewed by physician. Signing provider agrees with the documented findings, assessment, and plan of care. Objective - Vital Signs Vital signs: Vital Signs Temp 99.8 F H 08/22/21 12:00 Pulse 79 08/22/21 13:30 Resp 27 H 08/22/21 13:30 BP 109/65 08/22/21 13:30 Pulse Ox 89 L 08/22/21 13:30 Intake & Output 08/21/21 08/22/21 08/22/21 18:59 06:59 18:59 Intake Total 7703.776 3426.016 501.883 Output Total 1994 1610 1715 Balance -587.175 -567.984 -1213.117 Weight 114.2 kg 114.2 kg Intake: IV 299 276 138 Sodium Chloride 0.9% 1, 260 240 120 000 ml @ 20 mls/hr IV . Q24H [facility] Rx#:[id number] pressure bag 39 36 18 Intake, IV Titration 866.825 434.016 231.883 Amount Cisatracurium 200 mg In 324.904 Sodium Chloride 0.9% 180 ml @ 1 MCG/KG/MIN 6.24 mls/hr IV .Q24H [facility] Rx#: [id number] Norepinephrine 8 mg In 20.907 79.763 48.510 Sodium Chloride 0.9% 250 ml @ 0.05 MCG/KG/MIN 10. 739 mls/hr IV .Q24H [facility] Rx#:[id number] fentaNYL (PF). 1,000 mcg 133.814 154.253 83.373 In Sodium Chloride 0.9% 80 ml @ 0.5 MCG/KG/HR 5.2 mls/hr IV .[id number] [facility] Rx#:[id number] propofoL 1,000 mg In 387.2 200.00 100.0 Empty Bag 1 bag @ Titrate IV .Q0M [facility] Rx#: [id number] Tube Feeding 242 242 132 Other 90 Output: Urine 1994 1610 1715 Other: Voiding Method Indwelling Catheter Indwelling Catheter Indwelling Catheter ABP, PAP, CO, CI - Last Documented Arterial Blood Pressure 98/55 - Labs CBC & Chem 7: 08/22/21 04:00 08/22/21 04:00 Labs: Abnormal Lab Results - Last 24 Hours (Table) 08/21/21 08/21/21 08/22/21 Range/Units 17:52 23:29 04:00 RBC 2.74 L (4.30-5.90) m/uL Hgb 9.0 L (13.0-17.5) gm/dL Hct 28.1 L (39.0-53.0) % MCV 102.3 H (80.0-100.0) fL ABG pH (7.35-7.45) ABG pCO2 (35-45) mmHg ABG pO2 (83-108) mmHg ABG HCO3 (21-25) mmol/L ABG Total CO2 (19-24) mmol/L ABG O2 Saturation (94-97) % Potassium (3.5-5.1) mmol/L Carbon Dioxide (22-30) mmol/L BUN (9-20) mg/dL Creatinine (0.66-1.25) mg/dL Glucose (74-99) mg/dL POC Glucose (mg/dL) 178 H 172 H (75-99) mg/dL Calcium (8.4-10.2) mg/dL ALT (4-49) U/L Total Protein (6.3-8.2) g/dL Albumin (3.5-5.0) g/dL 08/22/21 08/22/21 08/22/21 Range/Units 04:00 05:58 11:16 RBC (4.30-5.90) m/uL Hgb (13.0-17.5) gm/dL Hct (39.0-53.0) % MCV (80.0-100.0) fL ABG pH 7.50 H (7.35-7.45) ABG pCO2 49 H (35-45) mmHg ABG pO2 59 L* (83-108) mmHg ABG HCO3 39 H (21-25) mmol/L ABG Total CO2 40 H (19-24) mmol/L ABG O2 Saturation 91.4 L (94-97) % Potassium 3.4 L (3.5-5.1) mmol/L Carbon Dioxide 35 H (22-30) mmol/L BUN 21 H (9-20) mg/dL Creatinine 0.35 L (0.66-1.25) mg/dL Glucose 122 H (74-99) mg/dL POC Glucose (mg/dL) 120 H (75-99) mg/dL Calcium 8.0 L (8.4-10.2) mg/dL ALT 59 H (4-49) U/L Total Protein 5.3 L (6.3-8.2) g/dL Albumin 2.3 L (3.5-5.0) g/dL Microbiology - Last 24 Hours (Table) 08/22/21 04:45 Wound Culture - Preliminary Trachea
--- NOTE | 2021-08-22 15:29 | P.PN ---
Subjective Progress Note Date: 08/21/21 This is a 65-year-old male well-known to me. He had been and getting sick last Friday. He was tested for COVID-19 and was positive. Unfortunately this patient is not vaccinated. He did receive monoclonal antibody infusion. On Friday he was initiated on Decadron and colchicine due to a obesity, history of smoking and chronic pain. He presented to the emergency room and [facility] and was found to 19 pneumonia on chest x-ray. KUB due to increased shortness of breath. He was found to have a pulse oximetry of 84 in the emergency room. He is currently on a 50% nonrebreather. His pulse oximeter is improved, but he does continue to short of breath this level. Initial laboratory studies were essentially normal. Diabetes 5 Hemoglobin 53. There Is No Significant Shift. 07/30/2021 maintained on 15 L high flow nasal cannula and nonrebreather mask, maintaining O2 sats of 90-94%. Continues on Covid cocktail,Baricitinib. Pro- calcitonin negative. Requiring sitter at bedside to facilitate patient leaving his oxygen on. Renal function within normal limits. Inflammatory markers incr eased. 07/31/2021 maintained on Covid cocktail, Baricitinib. continues on 15 L high flow nasal cannula/nonrebreather mask maintaining O2 sats in the 90s. Chest x- ray reporting interstitial and alveolar infiltrates with small effusions stable. Afebrile. Requiring occupational safety specialist to remind patient from refraining to pull off his mask. Dopplers reported negative for bilateral lower extremities DVT. 08/01/2021 respiratory status unchanged. The patient alert and oriented 3,requires sitter at bedside to remind him to leave his mask on. Afebrile. Maintained on Covid cocktail. 08/02/2021 respiratory status worsened, unable to tolerate BiPAP and transferred to the ICU, requiring emergent intubation. Maintained on 100% FiO2/+18 of PEEP. Chest x-ray reporting increased bilateral multifocal opacities-consistent with COVID-19 infection progression. CTA reported negative for acute PE.Continues on Nimbex, diprovan, fentanyl. On and off Levophed. Currently on third liter of IV fluids. Mild tachycardia, borderline hypotension. Temperature 102.6, WBC 13.34, hemoglobin 13.7, platelets 455. D-dimer 0.76, ferritin 656, LDH 572 CRP 2.20. ABGs pending. 08/03/2021 FiO2 90/+10 of PEEP. Maintained on diprovan, on Nimbex, fentanyl, norepinephrine. Prone positioned. Currently maintaining O2 sats in the high 80s. T-max 106.8 currently 100.1. WBC trending up, 17.3. Pro-calcitonin elevated, 1.31. Pancultured/Lactic acid pending. Baricitinib discontinued with Cefepime initiated .Inflammatory markers increased with significant elevation of d-dimer, 9.45. Cardiology consult in place, Troponin increased 0.320. 08/20/21 FiO2 75%/+15 of PEEP. Maintained on fentanyl, diprovan and nimbex drips. T-max 99.9, WBC within normal limits. Potassium 3.2, receiving supplements. Inflammatory markers mildly elevated with the exception of LDH. Chest x-ray reporting COPD with stable diffuse interstitial changes, patchy, confluent groundglass Covid infiltrates. Tracheostomy cannula tip 2.2 cm from the giovani-adjustment as per gymnastics instructor. Hemoglobin 9.6. Foul-smelling , thick epi,burgandy oral secretions occurring over the last couple days, right neck area discoloration-possible mass/abscess-CT ordered. Blood sugars currently controlled but increasing.Tolerating tube feeds with minimal to no residuals, gold currently being advanced by dietitian. 08/21/2021 ABGs reported pO2 of 57, pCO2 48, pH 7.48, FiO2 increased to 100%, PEEP remains at 15. Maintained on diprovan, fentanyl, and Nimbex and Levophed. Tolerating tube feeds at goal, with minimal to no residuals. Chest x-ray reporting no significant change from prior. Renal function stable. T-max 99.7, normal WBC. Objective - Vital Signs Vital signs: Vital Signs Temp 98.3 F 08/21/21 16:00 Pulse 75 08/21/21 16:00 Resp 19 08/21/21 16:00 BP 92/58 08/21/21 16:00 Pulse Ox 98 08/21/21 16:00 Intake & Output 08/20/21 08/21/21 08/21/21 18:59 06:59 18:59 Intake Total 4985.699 9097.886 1217.225 Output Total 3854 610 9844 Balance -522.808 829.886 -657.775 Weight 118 kg 120 kg Intake: IV 230 342 230 Sodium Chloride 0.9% 1, 200 280 200 000 ml @ 20 mls/hr IV . Q24H [facility] Rx#:[id number] pressure bag 30 62 30 Intake, IV Titration 862.192 749.886 811.225 Amount Cisatracurium 200 mg In 247.788 143.832 324.904 Sodium Chloride 0.9% 180 ml @ 1 MCG/KG/MIN 6.24 mls/hr IV .Q24H [facility] Rx#: [id number] Norepinephrine 8 mg In 32.718 45.247 20.907 Sodium Chloride 0.9% 250 ml @ 0.05 MCG/KG/MIN 10. 739 mls/hr IV .Q24H [facility] Rx#:[id number] fentaNYL (PF). 1,000 mcg 210.586 170.907 133.814 In Sodium Chloride 0.9% 80 ml @ 0.5 MCG/KG/HR 5.2 mls/hr IV .[id number] [facility] Rx#:[id number] propofoL 1,000 mg In 371.10 389.9 331.6 Empty Bag 1 bag @ Titrate IV .Q0M [facility] Rx#: [id number] Tube Feeding 200 308 176 Other 90 90 Output: Urine 6879 458 1511 Other: Voiding Method Indwelling Catheter Indwelling Catheter Indwelling Catheter ABP, PAP, CO, CI - Last Documented Arterial Blood Pressure 94/56 - Exam GENERAL: intubated ,sedated, paralyzed HEAD: Atraumatic, normocephalic. HEART: Telemetry sinus rhythm-sinus tachycardia LUNGS: Diffuse scattered rhonchi, bibasilar crackles EXTREMITIES: Normal range of motion, no edema NEUROLOGICAL: Unable to assess, patient on mechanical ventilator, sedated and paralyzed - Labs CBC & Chem 7: 08/22/21 04:00 08/22/21 04:00 Labs: Abnormal Lab Results - Last 24 Hours (Table) 08/20/21 08/21/21 08/21/21 Range/Units 17:34 00:02 04:30 RBC 2.79 L (4.30-5.90) m/uL Hgb 9.2 L (13.0-17.5) gm/dL Hct 28.6 L (39.0-53.0) % MCV 102.4 H (80.0-100.0) fL ABG pH (7.35-7.45) ABG pCO2 (35-45) mmHg ABG pO2 (83-108) mmHg ABG HCO3 (21-25) mmol/L ABG Total CO2 (19-24) mmol/L ABG O2 Saturation (94-97) % Carbon Dioxide (22-30) mmol/L Creatinine (0.66-1.25) mg/dL Glucose (74-99) mg/dL POC Glucose (mg/dL) 194 H 126 H (75-99) mg/dL Calcium (8.4-10.2) mg/dL ALT (4-49) U/L Total Protein (6.3-8.2) g/dL Albumin (3.5-5.0) g/dL 08/21/21 08/21/21 08/21/21 Range/Units 04:30 06:00 06:08 RBC (4.30-5.90) m/uL Hgb (13.0-17.5) gm/dL Hct (39.0-53.0) % MCV (80.0-100.0) fL ABG pH 7.48 H (7.35-7.45) ABG pCO2 48 H (35-45) mmHg ABG pO2 57 L* (83-108) mmHg ABG HCO3 36 H (21-25) mmol/L ABG Total CO2 38 H (19-24) mmol/L ABG O2 Saturation 89.9 L (94-97) % Carbon Dioxide 34 H (22-30) mmol/L Creatinine 0.39 L (0.66-1.25) mg/dL Glucose 127 H (74-99) mg/dL POC Glucose (mg/dL) 132 H (75-99) mg/dL Calcium 7.9 L (8.4-10.2) mg/dL ALT 62 H (4-49) U/L Total Protein 5.0 L (6.3-8.2) g/dL Albumin 2.3 L (3.5-5.0) g/dL 08/21/21 Range/Units 11:50 RBC (4.30-5.90) m/uL Hgb (13.0-17.5) gm/dL Hct (39.0-53.0) % MCV (80.0-100.0) fL ABG pH (7.35-7.45) ABG pCO2 (35-45) mmHg ABG pO2 (83-108) mmHg ABG HCO3 (21-25) mmol/L ABG Total CO2 (19-24) mmol/L ABG O2 Saturation (94-97) % Carbon Dioxide (22-30) mmol/L Creatinine (0.66-1.25) mg/dL Glucose (74-99) mg/dL POC Glucose (mg/dL) 104 H (75-99) mg/dL Calcium (8.4-10.2) mg/dL ALT (4-49) U/L Total Protein (6.3-8.2) g/dL Albumin (3.5-5.0) g/dL Assessment and Plan Assessment: Acute COVID-19 pneumonia, status post monoclonal antibody infusion, un- vaccinated. Sepsis secondary to the above and suspected underlying bacterial infection, elevated pro calcitonin, pancultured Acute hypoxic respiratory failure, mechanical ventilator-dependent with possible ARDS Status post tracheostomy and PEG tube placement Troponin, elevated, possibly related to the above ,cardiology following Hypernatremia secondary to diuresing, resolved Former nicotine dependence Daily alcohol consumption Essential hypertension Long-term use of opiate analgesic CAD Chronic congestive heart failure, systolic dysfunction, EF 40-45% Plan: Continue current medication regime ,monitoring and symptomatic treatment. Patient is not stable for travel for Right neck CT, therefore neck ultrasound ordered at bedside. Covid cocktail. ICU management as per gymnastics instructor. Prognosis guarded given multiple complex medical issues. The impression and plan of care has been dictated as directed. : I performed a history and examination of this patient, discussed the same with the dictator. I agree with the dictator's note ,documented as a scribe. Any additional findings or plans will be noted.
--- NOTE | 2021-08-22 15:36 | P.PN ---
Subjective Progress Note Date: 08/22/21 This is a 65-year-old male well-known to me. He had been and getting sick last Friday. He was tested for COVID-19 and was positive. Unfortunately this patient is not vaccinated. He did receive monoclonal antibody infusion. On Friday he was initiated on Decadron and colchicine due to a obesity, history of smoking and chronic pain. He presented to the emergency room and [facility] and was found to 19 pneumonia on chest x-ray. KUB due to increased shortness of breath. He was found to have a pulse oximetry of 84 in the emergency room. He is currently on a 50% nonrebreather. His pulse oximeter is improved, but he does continue to short of breath this level. Initial laboratory studies were essentially normal. Diabetes 5 Hemoglobin 53. There Is No Significant Shift. 07/30/2021 maintained on 15 L high flow nasal cannula and nonrebreather mask, maintaining O2 sats of 90-94%. Continues on Covid cocktail,Baricitinib. Pro- calcitonin negative. Requiring sitter at bedside to facilitate patient leaving his oxygen on. Renal function within normal limits. Inflammatory markers incr eased. 07/31/2021 maintained on Covid cocktail, Baricitinib. continues on 15 L high flow nasal cannula/nonrebreather mask maintaining O2 sats in the 90s. Chest x- ray reporting interstitial and alveolar infiltrates with small effusions stable. Afebrile. Requiring safety council director to remind patient from refraining to pull off his mask. Dopplers reported negative for bilateral lower extremities DVT. 08/01/2021 respiratory status unchanged. The patient alert and oriented 3,requires sitter at bedside to remind him to leave his mask on. Afebrile. Maintained on Covid cocktail. 08/02/2021 respiratory status worsened, unable to tolerate BiPAP and transferred to the ICU, requiring emergent intubation. Maintained on 100% FiO2/+18 of PEEP. Chest x-ray reporting increased bilateral multifocal opacities-consistent with COVID-19 infection progression. CTA reported negative for acute PE.Continues on Nimbex, diprovan, fentanyl. On and off Levophed. Currently on third liter of IV fluids. Mild tachycardia, borderline hypotension. Temperature 102.6, WBC 13.34, hemoglobin 13.7, platelets 455. D-dimer 0.76, ferritin 656, LDH 572 CRP 2.20. ABGs pending. 08/03/2021 FiO2 90/+10 of PEEP. Maintained on diprovan, on Nimbex, fentanyl, norepinephrine. Prone positioned. Currently maintaining O2 sats in the high 80s. T-max 106.8 currently 100.1. WBC trending up, 17.3. Pro-calcitonin elevated, 1.31. Pancultured/Lactic acid pending. Baricitinib discontinued with Cefepime initiated .Inflammatory markers increased with significant elevation of d-dimer, 9.45. Cardiology consult in place, Troponin increased 0.320. 08/20/21 FiO2 75%/+15 of PEEP. Maintained on fentanyl, diprovan and nimbex drips. T-max 99.9, WBC within normal limits. Potassium 3.2, receiving supplements. Inflammatory markers mildly elevated with the exception of LDH. Chest x-ray reporting COPD with stable diffuse interstitial changes, patchy, confluent groundglass Covid infiltrates. Tracheostomy cannula tip 2.2 cm from the giovani-adjustment as per press and blow machine tender. Hemoglobin 9.6. Foul-smelling , thick epi,burgandy oral secretions occurring over the last couple days, right neck area discoloration-possible mass/abscess-CT ordered. Blood sugars currently controlled but increasing.Tolerating tube feeds with minimal to no residuals, gold currently being advanced by dietitian. 08/21/2021 ABGs reported pO2 of 57, pCO2 48, pH 7.48, FiO2 increased to 100%, PEEP remains at 15. Maintained on diprovan, fentanyl, and Nimbex and Levophed. Tolerating tube feeds at goal, with minimal to no residuals. Chest x-ray reporting no significant change from prior. Renal function stable. T-max 99.7, normal WBC. 08/22/2021 FiO2 70%/+15 of PEEP. Chest x-ray worsening. Continues on diprovan, fentanyl. Levophed and Nimbex weaned off. Tracheostomy site drainage cultured. Head and neck ultrasound reported right lateral neck with superficial mild subcutaneous edema without well-formed fluid collection or drainable abscess. T-max 99.8, WBC 10.1. Blood sugars controlled. Objective - Vital Signs Vital signs: Vital Signs Temp 99.8 F H 08/22/21 12:00 Pulse 68 08/22/21 15:00 Resp 28 H 08/22/21 15:00 BP 94/60 08/22/21 15:00 Pulse Ox 87 L 08/22/21 15:00 Intake & Output 08/21/21 08/22/21 08/22/21 18:59 06:59 18:59 Intake Total 6128.774 3772.016 554.415 Output Total 1994 1610 1715 Balance -587.175 -567.984 -1160.585 Weight 114.2 kg 114.2 kg Intake: IV 299 276 138 Sodium Chloride 0.9% 1, 260 240 120 000 ml @ 20 mls/hr IV . Q24H [facility] Rx#:[id number] pressure bag 39 36 18 Intake, IV Titration 866.825 434.016 284.415 Amount Cisatracurium 200 mg In 324.904 Sodium Chloride 0.9% 180 ml @ 1 MCG/KG/MIN 6.24 mls/hr IV .Q24H [facility] Rx#: [id number] Norepinephrine 8 mg In 20.907 79.763 48.510 Sodium Chloride 0.9% 250 ml @ 0.05 MCG/KG/MIN 10. 739 mls/hr IV .Q24H [facility] Rx#:[id number] fentaNYL (PF). 1,000 mcg 133.814 154.253 83.373 In Sodium Chloride 0.9% 80 ml @ 0.5 MCG/KG/HR 5.2 mls/hr IV .[id number] [facility] Rx#:[id number] propofoL 1,000 mg In 387.2 200.00 152.532 Empty Bag 1 bag @ Titrate IV .Q0M [facility] Rx#: [id number] Tube Feeding 242 242 132 Other 90 Output: Urine 1994 1610 1715 Other: Voiding Method Indwelling Catheter Indwelling Catheter Indwelling Catheter ABP, PAP, CO, CI - Last Documented Arterial Blood Pressure 109/55 - Labs CBC & Chem 7: 08/22/21 04:00 08/22/21 04:00 Labs: Abnormal Lab Results - Last 24 Hours (Table) 08/21/21 08/21/21 08/22/21 Range/Units 17:52 23:29 04:00 RBC 2.74 L (4.30-5.90) m/uL Hgb 9.0 L (13.0-17.5) gm/dL Hct 28.1 L (39.0-53.0) % MCV 102.3 H (80.0-100.0) fL ABG pH (7.35-7.45) ABG pCO2 (35-45) mmHg ABG pO2 (83-108) mmHg ABG HCO3 (21-25) mmol/L ABG Total CO2 (19-24) mmol/L ABG O2 Saturation (94-97) % Potassium (3.5-5.1) mmol/L Carbon Dioxide (22-30) mmol/L BUN (9-20) mg/dL Creatinine (0.66-1.25) mg/dL Glucose (74-99) mg/dL POC Glucose (mg/dL) 178 H 172 H (75-99) mg/dL Calcium (8.4-10.2) mg/dL ALT (4-49) U/L Total Protein (6.3-8.2) g/dL Albumin (3.5-5.0) g/dL 08/22/21 08/22/21 08/22/21 Range/Units 04:00 05:58 11:16 RBC (4.30-5.90) m/uL Hgb (13.0-17.5) gm/dL Hct (39.0-53.0) % MCV (80.0-100.0) fL ABG pH 7.50 H (7.35-7.45) ABG pCO2 49 H (35-45) mmHg ABG pO2 59 L* (83-108) mmHg ABG HCO3 39 H (21-25) mmol/L ABG Total CO2 40 H (19-24) mmol/L ABG O2 Saturation 91.4 L (94-97) % Potassium 3.4 L (3.5-5.1) mmol/L Carbon Dioxide 35 H (22-30) mmol/L BUN 21 H (9-20) mg/dL Creatinine 0.35 L (0.66-1.25) mg/dL Glucose 122 H (74-99) mg/dL POC Glucose (mg/dL) 120 H (75-99) mg/dL Calcium 8.0 L (8.4-10.2) mg/dL ALT 59 H (4-49) U/L Total Protein 5.3 L (6.3-8.2) g/dL Albumin 2.3 L (3.5-5.0) g/dL Microbiology - Last 24 Hours (Table) 08/22/21 04:45 Wound Culture - Preliminary Trachea Assessment and Plan Assessment: Acute COVID-19 pneumonia, status post monoclonal antibody infusion, un- vaccinated. Sepsis secondary to the above and suspected underlying bacterial infection, elevated pro calcitonin, pancultured Acute hypoxic respiratory failure, mechanical ventilator-dependent with possible ARDS Status post tracheostomy and PEG tube placement Troponin, elevated, possibly related to the above ,cardiology following Hypernatremia secondary to diuresing, resolved Former nicotine dependence Daily alcohol consumption Essential hypertension Long-term use of opiate analgesic CAD Chronic congestive heart failure, systolic dysfunction, EF 40-45% Plan: Continue current medication regime ,monitoring and symptomatic treatment. Covid cocktail. ICU management as per press and blow machine tender. Prognosis guarded given multiple complex medical issues. The impression and plan of care has been dictated as directed. : I performed a history and examination of this patient, discussed the same with the dictator. I agree with the dictator's note ,documented as a scribe. Any additional findings or plans will be noted.
[2021-08-22 17:11] LABS: Glucose,Whole Blood 118 mg/dL (75-99)
[2021-08-22] MEDS: ATORVASTATIN 40 MG TAB PO SCH (17:17)
[2021-08-22] MEDS: SODIUM CHLORIDE 0.9% 500 ML 500 ML IV SCH (17:18)
[2021-08-22 17:49] LABS: Glucose,Whole Blood 115 mg/dL (75-99)
[2021-08-22 20:38] LABS: ABG Base Excess 18.1 mmol/L; ABG Oxygen Saturation 87.2 % (94-97); ABG PCO2 47 mmHg (35-45); ABG PH 7.55 (7.35-7.45); ABG TCO2 42 mmol/L (19-24); Allen Test Performed? Yes
[2021-08-22 20:40] LABS: ABG HCO3 41 mmol/L (21-25); ABG PO2 50 mmHg (83-108)
--- NOTE | 2021-08-22 21:11 | XR ---
EXAMINATION TYPE: XR chest 1V portable DATE OF EXAM: 08/22/2021 COMPARISON: 08/22/2021 HISTORY: Hypoxemia TECHNIQUE: Single view FINDINGS: There is coarse interstitial pulmonary infiltrates. Heart size is normal. There is tracheos estevan tube. There is slight blunting of the costophrenic angles. IMPRESSION: Pulmonary interstitial infiltrates without change compared to exam this morning.
--- NOTE | 2021-08-22 23:54 | XR ---
EXAMINATION TYPE: XR chest 1V portable DATE OF EXAM: 08/22/2021 COMPARISON: Today HISTORY: Hypoxemia TECHNIQUE: FINDINGS: There is tracheostomy tube noted. There is bilateral moderate interstitial and to lesser ex tent airspace infiltrate. Heart size is normal. There is right central venous catheter with tip in th e superior vena cava. No pneumothorax. There are chest leads. There is no definite pleural effusion. IMPRESSION: Bilateral interstitial and air space pneumonia without change compared to 3 hours ago.
[2021-08-23 00:24] LABS: Glucose,Whole Blood 100 mg/dL (75-99)
[2021-08-23] MEDS: INSULIN ASPART (NovoLOG) 100 UNIT/ML VIAL SQ SCH ×4 (00:52→19:09)
[2021-08-23] MEDS: fentaNYL (PF). 1,000 MCG in SODIUM CHLORIDE 0.9% 80 ML IV SCH ×2 (02:32→07:04)
[2021-08-23] MEDS: ARTIFICIAL TEARS-HYPROMELLOSE DROPS 15 ML BTL BOTH EYES SCH ×6 (02:33→21:28)
[2021-08-23 05:48] LABS: ABG Oxygen Saturation 84.9 % (94-97); ABG PCO2 49 mmHg (35-45); ABG PH 7.52 (7.35-7.45); ABG TCO2 41 mmol/L (19-24); Allen Test Performed? Yes
[2021-08-23 05:49] LABS: ABG HCO3 40 mmol/L (21-25); ABG PO2 49 mmHg (83-108)
[2021-08-23 06:44] LABS: Glucose,Whole Blood 116 mg/dL (75-99)
[2021-08-23] MEDS: INSULIN DETEMIR (LEVEMIR) 100 UNIT/ML SYR SQ SCH ×2 (07:05→21:29)
[2021-08-23] MEDS: ALBUTEROL HFA INHALER INHALATION PRN (09:37)
--- NOTE | 2021-08-23 10:10 | P.PN ---
Subjective Progress Note Date: 08/23/21 Principal diagnosis: Respiratory failure. Shortness of breath, hypoxia, COVID 19 This is 65-year-old male patient who has a history of hyperlipidemia, hypertension, anxiety, PTSD. He developed symptoms of increasing shortness of breath cough and congestion headache fever chills approximately 4 days ago. He tested positive for COVID-19 and received monoclonal antibodies by [facility]. He presented to the emergency room early this morning with worsening symptoms. The patient is not vaccinated. Chest x-ray shows bilateral patchy opacities consistent with COVID-19 pneumonia. White count 5.8. Hemoglobin 15.3. Lymphocytes 0.7. D-dimer 0.33. Sodium 134. Potassium 4.4. Creatinine 0.84. AST 56,. ALT 34. Troponins negative 3. ProBNP 54. He's been initia liza on Decadron, Lovenox, vitamin supplements. He is seen today in consultation on the regular medical floor. He is already on by mouth liters high flow nasal cannula plus a nonrebreather mask. He is afebrile. Hemodynamically stable. Dyspneic with minimal conversation. Dyspneic with minimal exertion. On 07/29/2021 patient seen in follow-up on medical surgical floor, he is currently on 15 L per high flow nasal cannula his pulse ox is 87-91%, he is afebrile, hemodynamically stable, patient has been repositioning self and then, on his left side right side, and he states he did try some prone positioning briefly.He was started on Baricitinib yesterday and he is on Decadron 6 mg daily in addition to prophylactic Lovenox. Today's labs have been reviewed, his white blood cell count is 10.7, hemoglobin is 14.4, he is actually excellent renal profile are within normal limits, he is d-dimer on admission was negative at 0.33. LDH and CRP levels are still pending, pro-calcitonin level was negative at 0.07. 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 Patient is breathing fairly comfortably, he feels like his breathing is a little easier today, has occasional cough, at times she is able to bring up some yellow and green colored phlegm, no fever or chills, he was started on Baricitinib on 07/28/2021, he is also on Decadron 6 mg daily, and Lovenox 40 mg daily. Remains on IV fluids with 0.9 normal saline at a rate of 75 ML per hour, he is on COVID-19 vitamins. Labs reviewed, white blood cell count is 12.9, hemoglobin is 14.6, platelet count is 369, his d-dimer slightly increased and is currently at 0.60, electrolytes and renal profile are within normal limits. His LDH today is increased and is up to 1634, patient had 4 sets of negative troponin at less than 0.012, proBNP was 107, pro-calcitonin level was negative at 0.07 On 08/01/2021 patient seen in follow-up on medical surgical floor. Patient is currently on 15 L and 100% nonrebreather mask, he had a rapid response team call early this morning for a concern of intermittent pleuritic chest discomfort, and pain in bilateral lower extremities. In addition patient was noted to be intermittently removing his oxygen and desaturating. Currently he is awake, he is laying in bed, however he is crying, he is complaining of pain, however he is not able to say where the pain is. O2 saturation is 91%. His been afebrile, hemodynamically stable, lower extremity Dopplers were negative for DVT. Patient is currently on Baricitinib, he is on Lovenox 40 mg daily, and Decadron. He is receiving IV fluids at a rate of 75 ML per hour. He is d-dimer is 0.76, white count is 13.3, hemoglobin is 13.7, electrolyte and renal profile are within normal limits, he is LDH has improved since admission, and is down to 572, his troponins were negative 3, and CRP is improving and is down to 2.2. On 08/02/2021 patient seen in follow-up in the intensive care unit, this morning she was emergently transferred to the ICU for worsening hypoxia, he was emergently intubated and placed on mechanical ventilator, currently sedated, on assist-control mode of ventilation with a rate of 36, tidal volume is 450, FiO2 100% and PEEP of 10. Patient is quite dyssyncronous with the ventilator, Nimbex has been ordered, awaiting starting the paralytic. This pulse ox is only 82%, and the PEEP has been increased to 14, awaiting follow-up blood gas. He is in sinus mechanism tachycardic with a rate of 116. He is currently on 0.9 with seen at the rate of 75 ML per hour, Diprivan is 50 mics per kilo per minute. Patient was given Nimbex 10 mg IV push, he is better synchronize, his peak air pressures 34, plateau is 31. His chest x-ray from this morning shows ET tube slightly low, just above the giovani, and we will pull back the ET tube 2 or 3 cm. There are bilateral multifocal increased opacities with worsening findings and the right upper lung. CT angiogram of the chest from yesterday showed no acute pulmonary embolism within the limitation of the study. Today's labs are still pending. Patient continues on Baricitinib, Lovenox 40 mg, Decadron. Pickett catheter has been placed, patient is producing urine, he required a brief norepinephrine support. We'll place his Lasix on hold, will discontinue oral medications. On 08/03/2021 patient is seen in follow-up in the intensive care unit, he is currently intubated, sedated and paralyzed and proned. Vent settings this morning are assist-control with a rate of 36, tidal volume is 450, FiO2 of 90% and PEEP of 10. However his pulse ox is only 86-80%, this morning's blood gas shows pO2 of 64, pCO2 41, and pH of 7.36. His peak pressure is 32, plateau is 34. Patient is currently on 0.9 normal saline at 75 ML per hour, fentanyl is a 0.5 mics per kilo per minute, norepinephrine drip is a 0.03 mics per minute, Nimbex is a 2 mics per minute per minute, Diprivan is a 50 mics per kilo per minute. He was started on tube feedings with vital HP at a rate of 30 with a goal of 34. Chest x-ray today is still pending, patient's chest x-ray will be taken when he is turned on his back at 10:00 this morning. Today's labs show uptrending white count at 17.3, hemoglobin is 13, his INR is 1.1, his d-dimer is 9.45, sodium is 136, potassium is 4.1, CO2 is 20, BUN 17 creatinine 0.67, his troponin increased to 0.3-0, cardiology has been consulted, his proBNP was 2100, cortisol level was 19, TSH was 0.031, but free T4 was 1.17, within normal limits. Pro-calcitonin level came back at 1.31 suggesting presence of bacterial infection and patient is on sitting up which we will discontinue this morning. Urinalysis has been sent shows no evidence of infection, patient will be pancultured. And placed on cefepime. His recent CT angiogram of the chest showed no acute PE, post recent lower extremity Dopplers from 07/30/2021 showed no evidence of DVT. Patient did have fever elevation through the night, with a T-max of 106.8F, patient received antipyretics, this morning his temperature is 100.1F. Blood cultures will be sent lactic acid will be obtained. Progress note dated 08/04/2021. The patient remains in the intensive care unit, in seen in room 266. Currently, he's on the volume assist control mode, rate 36, tidal volume 450, FiO2 100%, and PEEP of 14. Blood gases show a PaO2 of 108, pCO2 of 50, and pH is 7.3. The patient's on Nimbex at 2 mcg/kg/m, fall at 50 mcg/kg/m, fentanyl at 1.5 mcg/kg/h, saline at 75 mL an hour and vital high protein at 30 mL an hour. That is goal. We will attempt to wean the FiO2. The PEEP was increased from 14 up to 18 cm water and we'll add hydrocortisone 50 mg every 6 hours. The patient's cortisol level was a bit low. White count 19.4, hemoglobin 12, hematocrit 37.1, platelet count 383,000. Sodium 139, potassium 4, chlorides 112, CO2 22, anion gap 5, BUN 16, creatinine 0.47. Albumin is 2.2. Chest x-ray shows diffuse bilateral infiltrates, and CT angiogram was negative for pulmonary embolism. Progress note dated 08/05/2021. 65-year-old male, again seen in the ICU, room 266. The patient is currently on the volume assist control mode of ventilation, rate 36, tidal volume 450, FiO2 90%, and PEEP of 18. Blood gases show a PaO2 of 83, pCO2 42, and a pH is 7.38. The patient remains on Nimbex at 2 mcg/kg/m, propofol at 50 mcg/kg/m, and fentanyl 1.5 mcg/kg/h. The patient's getting saline at 75 mL an hour, and vital high protein at 30 mL an hour, which is goal. The plans for the patient today or to wean the FiO2 down, to reduce his fluids to KVO, and to give the patient Lasix [address] angiogram was negative for pulmonary embolism. White count 16.9, hemoglobin 11.4, hematocrit 36, and normal platelet count. Sodium 141, potassium 4.3, chlorides 113, CO2 23, anion gap 5, BUN 21, and creatinine 0.5. Albumin is 2.1. Microbiologic studies are negative. Chest x-ray shows bilateral patchy infiltrates and pneumonia, somewhat improved compared to the prior chest x-ray. Progress note dated 08/20/2020. This is a 65-year-old male, who was initially admitted back on July 28. He was admitted with a diagnosis of coronavirus associated pneumonia. He came to the intensive care unit on August 02, and was intubated on the . The patient had a tracheostomy and PEG tube placement on 08/18/2021. The patient remains on the mechanical ventilator, with the pressure assist control modality. The patient's inspiratory pressure is 17 cm water, inspiratory time is 1 second, the rate of 28 breaths per minute, FiO2 is 75%, and the PEEP is 15. Arterial blood gases show pO2 of 62, pCO2 47, and pH is 7.48. The patient is currently on saline at 20 mL an hour, fentanyl at 2 mcg/kg/h, propofol at 50 mcg/kg/m, and index of 4.5 mcg/kg/m, and vital AF at 22 mL an hour. That is go al. White count of 7.8, hemoglobin 9.6, hematocrit 28.6, and platelet count is 301,000. Sodium 142, potassium 3.2, chlorides 103, CO2 35, anion gap 4, BUN 25, and creatinine 0.45. LDH is 923 with a C-reactive protein of 24.4. Microbiology, thus far is negative. Chest x-ray shows diffuse bilateral infiltrates, largely unchanged. The tip of the tracheostomy tube was noted to 2.2 cm above the giovani. Progress note dated 08/21/2020. 65-year-old male, who was initially admitted back on July 28. He was admitted with a diagnosis of coronavirus associated pneumonia. He came to the intensive care unit on August 02, and was intubated on the same day. The patient had a tracheostomy and PEG tube placement on 08/18/2021, for failure to wean from mechanical ventilation. The patient remains on the pressure assist control modality, with an inspiratory pressure of 17 cm water, and inspiratory time of 1 second. In addition the patient has a rate of 28, FiO2 75%, and PEEP of 15. Blood gases show pO2 of 57, pCO2 48, and a pH is 7.48. Saline is running at 20 mL an hour. Fentanyl is running at 1 mcg/kg/h, propofol at 50 mcg/kg/m. Nimbex is currently on hold. He is getting vital AF at 22 mL an hour, which is his goal. White count 9, hemoglobin 9.2, hematocrit 28.6, platelet count normal. Sodium 141, potassium 3.6, chlorides 102, CO2 34, anion gap 5, BUN 20, with creatinine of 0.39. Glucose is 127. Albumin 2.3. Chest x- ray shows diffuse bilateral infiltrates, which are unchanged. The tracheostomy tube is in good position. Progress note dated 08/22/2021. 65-year-old male, initially admitted back on July 28. He was admitted with a diagnosis of coronavirus associated pneumonia. He came to the intensive care unit August 02, and required intubation on the same day. The patient had a tracheostomy and PEG tube placed, first 2021, for failure to wean from mec hanical ventilation. The patient remains on the ventilator. The patient is on the pressure assist control mode, with an inspiratory pressure of 17 cm water, and inspiratory time of 1 second. The patient's respiratory rate is 28, with an FiO2 of 70%, and PEEP of 15. Blood gases show pO2 of 50, pCO2 49, pH is 7.5. Patient remains on saline at 20 mL an hour, fentanyl 1 mcg/kg/h, norepinephrine at 3 mcg/m, propofol at 75 mcg/kg/m, and Nimbex has been weaned off. Labs include a white count 10.1, hemoglobin 9, hematocrit 20 point and platelet count 305,000. Sodium 142, potassium 3.4, chlorides 100, CO2 35, anion gap 7, BUN 21, and creatinine 0.35. Microbiology is negative. Chest x-ray shows worsening bilateral infiltrates. Progress note dated 08/23/2021. 65-year-old male, initially admitted back on July 28. He was admitted with a diagnosis of coronavirus associated pneumonia. The patient came to the intensive care unit on August 02, and required intubation on the same day. The patient had a tracheostomy and PEG tube placed on 08/18/2021, for failure to wean. The patient remains on the mechanical ventilator. He is on the pressure assist control mode, rate is 28, FiO2 100%, PEEP of 20, with an inspiratory pressure of 17, and inspiratory time of 1 second. The blood gases show pO2 49, CO2 49, and pH is 7.52. The patient's getting propofol at 25 mcg/kg/m, and fentanyl at 2 mcg/kg/h. Patient's receiving vital high protein at 39 mL an hour, which is goal. We are going to increase the PEEP up to 24. I've asked her a.m. labs including a blood gas, and an a.m. chest x-ray. No chest x-ray was ordered on this patient. Objective - Vital Signs Vital signs: Vital Signs Temp 99.7 F H 08/23/21 05:00 Pulse 101 H 08/23/21 07:00 Resp 29 H 08/23/21 07:00 BP 121/72 08/23/21 06:30 Pulse Ox 88 L 08/23/21 07:00 Intake & Output 08/22/21 08/23/21 08/23/21 18:59 06:59 18:59 Intake Total 902.398 1643.645 233.664 Output Total 1910 4165 100 Balance -1030.837 -3163.355 133.664 Weight 114.2 kg 111.8 kg Intake: IV 253 276 23 Sodium Chloride 0.9% 1, 220 240 20 000 ml @ 20 mls/hr IV . Q24H [facility] Rx#:[id number] pressure bag 33 36 3 Intake, IV Titration 367.163 197.645 171.664 Amount Norepinephrine 8 mg In 48.510 Sodium Chloride 0.9% 250 ml @ 0.05 MCG/KG/MIN 10. 739 mls/hr IV .Q24H [facility] Rx#:[id number] fentaNYL (PF). 1,000 mcg 142.653 131.980 94.293 In Sodium Chloride 0.9% 80 ml @ 0.5 MCG/KG/HR 5.2 mls/hr IV .[id number] [facility] Rx#:[id number] propofoL 1,000 mg In 176.000 65.665 77.371 Empty Bag 1 bag @ Titrate IV .Q0M [facility] Rx#: [id number] Tube Feeding 259 468 39 Other 60 Output: Urine 1910 4165 100 Other: Voiding Method Indwelling Catheter Indwelling Catheter ABP, PAP, CO, CI - Last Documented Arterial Blood Pressure 87/53 - Exam No acute distress, sedated. The patient has a midline tracheostomy tube. HEENT examination is grossly unremarkable. Neck supple. Full range of motion. No adenopathy thyromegaly or neck vein distention. Cardiovascular examination reveals regular rhythm rate. S1-S2 normal. No S3 or S4. No discernible murmur noted. Heart sounds are distant. Heart rate 101 bpm. Lungs reveal diffuse bilateral rhonchi as well as bilateral crackles. Breath sounds equal bilaterally. There are no wheezes. Saturations are 89%. Abdomen soft bowel sounds are heard. No masses. A PEG tube is noted. Extremities are intact. No cyanosis clubbing or edema. Skin is without rash or lesion. Neurologic examination cannot be adequately assessed as the patient's currently sedated. - Labs CBC & Chem 7: 08/22/21 04:00 08/22/21 17:12 Labs: Abnormal Lab Results - Last 24 Hours (Table) 08/22/21 08/22/21 08/22/21 Range/Units 11:16 17:10 17:47 ABG pH (7.35-7.45) ABG pCO2 (35-45) mmHg ABG pO2 (83-108) mmHg ABG HCO3 (21-25) mmol/L ABG Total CO2 (19-24) mmol/L ABG O2 Saturation (94-97) % POC Glucose (mg/dL) 120 H 118 H 115 H (75-99) mg/dL 08/22/21 08/23/21 08/23/21 Range/Units 20:36 00:22 05:40 ABG pH 7.55 H 7.52 H (7.35-7.45) ABG pCO2 47 H 49 H (35-45) mmHg ABG pO2 50 L* 49 L* (83-108) mmHg ABG HCO3 41 H* 40 H* (21-25) mmol/L ABG Total CO2 42 H 41 H (19-24) mmol/L ABG O2 Saturation 87.2 L 84.9 L (94-97) % POC Glucose (mg/dL) 100 H (75-99) mg/dL 08/23/21 Range/Units 06:42 ABG pH (7.35-7.45) ABG pCO2 (35-45) mmHg ABG pO2 (83-108) mmHg ABG HCO3 (21-25) mmol/L ABG Total CO2 (19-24) mmol/L ABG O2 Saturation (94-97) % POC Glucose (mg/dL) 116 H (75-99) mg/dL Microbiology - Last 24 Hours (Table) 08/22/21 04:45 Gram Stain - Preliminary Trachea Wound Culture - Preliminary Assessment and Plan Assessment: Acute hypoxemic respiratory failure secondary to coronavirus associated pneumonia, with initial admission on 07/28/2021. Status post intubation and mechanical ventilation for respiratory failure on 08/02/2021, and because of failure to wean from mechanical ventilation, tracheostomy and PEG tube placement on 08/18/2021. CT angiogram negative for pulmonary embolism. Elevated troponins, likely related to supply/demand mismatch. Chronic systolic CHF. History of hypertension. History of CAD. Hyperlipidemia. Chronic back pain. History of alcohol use. History of anxiety/PTSD. Plan: Plan dated 08/04/2021. The patient remains on the mechanical ventilator. We will increase the PEEP levels to 18, and try to wean the FiO2. Because his cortisol level is a bit low, we added hydrocortisone, 50 mg IV push, every 6 hours. The patient remains on cefepime empirically. The patient also is on Decadron and Lovenox. The patient is maintained on vitamin C, vitamin D3, and zinc. He remains on Nimbex, propofol, and fentanyl. He's getting tube feedings at goal. We will continue to follow make recommendations where appropriate. Prognosis is guarded. Plan dated 08/05/2021. The patient remains sedated and paralyzed. We will attempt to wean the Nimbex off. The patient will get Lasix 40 mg IV push today. In addition, we will at tempt to wean the FiO2. Also, we'll cut back on the fluids. Additional recommendations and suggestions are forthcoming. The patient remains on Lovenox, and vitamins. We will add back Decadron and DC the hydrocortisone. Additional recommendations and suggestions are forthcoming. The patient remains on cefepime empirically. Prognosis is guarded. Plan dated 08/20/2021. The patient's labs, x-rays, and medications are reviewed. The patient's FiO2 on the ventilator is reduced from 80%, down to 75%. The patient remains on fentanyl, propofol, and Nimbex. The patient is receiving vital AF at 22 mL an hour. That is goal. The patient did undergo tracheostomy and PEG tube placement on 08/18/2021. The patient remains on Decadron and Lovenox. Additional recommendations and suggestions are forthcoming. Overall prognosis remains very guarded. No additional recommendations are made at this time. We will continue to follow and make recommendations where appropriate. Plan dated 08/21/2021. The patient's labs, x-rays, medications are all reviewed. No changes on the mechanical ventilator today. The patient remains on fentanyl and propofol, and currently, the Nimbex is on hold. The patient is receiving tube feeds. The patient underwent tracheostomy and PEG tube placement on 08/18/2021. The patient remains on Decadron and Lovenox. We will continue to follow the patient and make recommendations where appropriate. Prognosis is certainly very guarded. Plan dated 08/22/2021. The patient's labs, x-rays, and medications are reviewed. The patient has been weaned off the Nimbex. He remains on fentanyl, propofol, and a small amount of norepinephrine at 3 mcg/m. Arterial blood gases are reasonable. He remains on the pressure assist control mode. He is receiving tube feedings at goal. We will continue to follow make recommendations were appropriate. Remains on nenita mins, Decadron, and Lovenox. Prognosis is guarded. Chest x-ray appears to be a bit worse. We will continue to follow this. Plan dated 08/23/2021. The patient's labs, x-rays and medications are all reviewed. The patient has been weaned off of Nimbex. We will increase the patient's PEEP to 24. We'll order a.m. labs, chest x-ray, and blood gases. The blood gas, from today is reviewed. The patient's overall prognosis remains poor. I did speak to the nurse, Radha about the patient. I told her to make sure the patient has labs, and x-rays reviewed. The patient remains on Decadron and Lovenox. We will continue to follow make recommendations and suggestions where appropriate. Prognosis is very guarded. Time with Patient: Greater than 30
[2021-08-23] MEDS: CHLORHEXIDINE GLUCONATE 15 ML CUP MUCOUS MEM SCH ×2 (10:19→21:29)
[2021-08-23] MEDS: ENOXAPARIN 40 MG/0.4 ML SYRINGE SQ SCH (10:19)
[2021-08-23] MEDS: FUROSEMIDE 10 MG/ML 4 ML VIAL IV SCH ×2 (10:21→21:29)
[2021-08-23] MEDS: ASPIRIN 81 MG PO SCH ×2 (10:21→21:29)
[2021-08-23] MEDS: PANTOPRAZOLE 40 MG/10 ML VIAL IVP SCH (10:21)
[2021-08-23] MEDS: ASCORBIC ACID 500 MG TAB PO SCH (10:21)
[2021-08-23] MEDS: DEXAMETHASONE SOD PHOSPHATE 10 MG/ML 1 ML VIAL IVP SCH (10:22)
[2021-08-23] MEDS: CHOLECALCIFEROL 25 MCG (1000 IU) TABLET PO SCH (10:22)
[2021-08-23] MEDS: ZINC SULFATE 220 MG CAP PO SCH (10:22)
[2021-08-23 11:47] LABS: Basophils % (A) 0 %; Eosinophils # (A) 0.2 k/uL (0-0.7); Eosinophils % (A) 1 %; HCT 33.7 % (39.0-53.0); HGB 10.6 gm/dL (13.0-17.5); Hypochromasia Moderate; Lymphocytes # (A) 1.3 k/uL (1.0-4.8); Lymphocytes % (A) 9 %; MCH 32.4 pg (25.0-35.0); MCHC 31.4 g/dL (31.0-37.0); MCV 103.1 fL (80.0-100.0); Macrocytosis Slight; Mean Platelet Volume 7.8; Monocytes # (A) 0.4 k/uL (0-1.0); Monocytes % (A) 3 %; Neutrophils # (A) 12.5 k/uL (1.3-7.7); Neutrophils % (A) 86 %; Platelet Count 364 k/uL (150-450); RBC 3.27 m/uL (4.30-5.90); RDW 14.5 % (11.5-15.5); WBC 14.6 k/uL (3.8-10.6)
[2021-08-23 12:08] LABS: ALT 86 U/L (4-49); AST 79 U/L (17-59); African American GFR (CKD) >90 (>60 ml/min/1.73 sqM); Albumin 2.6 g/dL (3.5-5.0); Alkaline Phosphatase 169 U/L (38-126); Anion Gap 5 mmol/L; Blood Urea Nitrogen 23 mg/dL (9-20); Calcium 8.4 mg/dL (8.4-10.2); Carbon Dioxide 39 mmol/L (22-30); Chloride 98 mmol/L (98-107); Glucose 127 mg/dL (74-99); Non-African American GFR(CKD) >90 (>60 ml/min/1.73 sqM); Potassium 3.4 mmol/L (3.5-5.1); Sodium 142 mmol/L (137-145); Total Protein 5.9 g/dL (6.3-8.2)
[2021-08-23 12:25] LABS: Glucose,Whole Blood 120 mg/dL (75-99)
[2021-08-23] MEDS: fentaNYL (PF) 2,500 MCG in SODIUM CHLORIDE 0.9% 200 ML IV SCH ×2 (12:29→23:28)
[2021-08-23] MEDS: NOREPINEPHRINE 8 MG in SODIUM CHLORIDE 0.9% 250 ML IV SCH (12:36)
--- NOTE | 2021-08-23 13:38 | P.PN ---
Subjective Progress Note Date: 08/23/21 CHIEF COMPLAINT: Covid 19 pneumonia HISTORY OF PRESENT ILLNESS: Patient is status post tracheostomy and PEG tube placement on 08/18/2021. Patient is tolerating tube feedings. Tracheostomy site drainage cultured. Afebrile. WBC 14.6 PHYSICAL EXAM: VITAL SIGNS: Reviewed. GENERAL: Well-developed in no acute distress. HEENT: Tracheostomy site with drainage ABDOMEN: Soft. Nondistended. Nontender. PEG tube site clean dry and intact ASSESSMENT: 1. Acute hypoxic respiratory failure secondary to COVID-19 pneumonia. Patient status post tracheostomy placement 2. Severe protein calorie malnutrition status post PEG tube placement PLAN: -Continue tube feedings -Continue ICU management -Continue supportive care Phys[employer] note has been reviewed by physician. Signing provider agrees with the documented findings, assessment, and plan of care. Objective - Vital Signs Vital signs: Vital Signs Temp 98.4 F 08/23/21 08:00 Pulse 100 08/23/21 11:00 Resp 35 H 08/23/21 11:00 BP 102/77 08/23/21 11:00 Pulse Ox 91 L 08/23/21 11:00 Intake & Output 08/22/21 08/23/21 08/23/21 18:59 06:59 18:59 Intake Total 949.127 9610.645 601.664 Output Total 1910 4165 260 Balance -1030.837 -3163.355 341.664 Weight 114.2 kg 111.8 kg Intake: IV 253 276 115 Sodium Chloride 0.9% 1, 220 240 100 000 ml @ 20 mls/hr IV . Q24H [facility] Rx#:[id number] pressure bag 33 36 15 Intake, IV Titration 367.163 197.645 171.664 Amount Norepinephrine 8 mg In 48.510 Sodium Chloride 0.9% 250 ml @ 0.05 MCG/KG/MIN 10. 739 mls/hr IV .Q24H [facility] Rx#:[id number] fentaNYL (PF). 1,000 mcg 142.653 131.980 94.293 In Sodium Chloride 0.9% 80 ml @ 0.5 MCG/KG/HR 5.2 mls/hr IV .[id number] [facility] Rx#:[id number] propofoL 1,000 mg In 176.000 65.665 77.371 Empty Bag 1 bag @ Titrate IV .Q0M [facility] Rx#: [id number] Tube Feeding 259 468 195 Other 60 120 Output: Urine 1910 4165 260 Other: Voiding Method Indwelling Catheter Indwelling Catheter ABP, PAP, CO, CI - Last Documented Arterial Blood Pressure 103/66 - Labs CBC & Chem 7: 08/23/21 11:00 08/23/21 11:00 Labs: Abnormal Lab Results - Last 24 Hours (Table) 08/22/21 08/22/21 08/22/21 Range/Units 17:10 17:47 20:36 WBC (3.8-10.6) k/uL RBC (4.30-5.90) m/uL Hgb (13.0-17.5) gm/dL Hct (39.0-53.0) % MCV (80.0-100.0) fL Neutrophils # (1.3-7.7) k/uL ABG pH 7.55 H (7.35-7.45) ABG pCO2 47 H (35-45) mmHg ABG pO2 50 L* (83-108) mmHg ABG HCO3 41 H* (21-25) mmol/L ABG Total CO2 42 H (19-24) mmol/L ABG O2 Saturation 87.2 L (94-97) % Potassium (3.5-5.1) mmol/L Carbon Dioxide (22-30) mmol/L BUN (9-20) mg/dL Creatinine (0.66-1.25) mg/dL Glucose (74-99) mg/dL POC Glucose (mg/dL) 118 H 115 H (75-99) mg/dL AST (17-59) U/L ALT (4-49) U/L Alkaline Phosphatase (38-126) U/L Total Protein (6.3-8.2) g/dL Albumin (3.5-5.0) g/dL 08/23/21 08/23/21 08/23/21 Range/Units 00:22 05:40 06:42 WBC (3.8-10.6) k/uL RBC (4.30-5.90) m/uL Hgb (13.0-17.5) gm/dL Hct (39.0-53.0) % MCV (80.0-100.0) fL Neutrophils # (1.3-7.7) k/uL ABG pH 7.52 H (7.35-7.45) ABG pCO2 49 H (35-45) mmHg ABG pO2 49 L* (83-108) mmHg ABG HCO3 40 H* (21-25) mmol/L ABG Total CO2 41 H (19-24) mmol/L ABG O2 Saturation 84.9 L (94-97) % Potassium (3.5-5.1) mmol/L Carbon Dioxide (22-30) mmol/L BUN (9-20) mg/dL Creatinine (0.66-1.25) mg/dL Glucose (74-99) mg/dL POC Glucose (mg/dL) 100 H 116 H (75-99) mg/dL AST (17-59) U/L ALT (4-49) U/L Alkaline Phosphatase (38-126) U/L Total Protein (6.3-8.2) g/dL Albumin (3.5-5.0) g/dL 08/23/21 08/23/21 08/23/21 Range/Units 11:00 11:00 12:23 WBC 14.6 H (3.8-10.6) k/uL RBC 3.27 L (4.30-5.90) m/uL Hgb 10.6 L (13.0-17.5) gm/dL Hct 33.7 L (39.0-53.0) % MCV 103.1 H (80.0-100.0) fL Neutrophils # 12.5 H (1.3-7.7) k/uL ABG pH (7.35-7.45) ABG pCO2 (35-45) mmHg ABG pO2 (83-108) mmHg ABG HCO3 (21-25) mmol/L ABG Total CO2 (19-24) mmol/L ABG O2 Saturation (94-97) % Potassium 3.4 L (3.5-5.1) mmol/L Carbon Dioxide 39 H (22-30) mmol/L BUN 23 H (9-20) mg/dL Creatinine 0.55 L (0.66-1.25) mg/dL Glucose 127 H (74-99) mg/dL POC Glucose (mg/dL) 120 H (75-99) mg/dL AST 79 H (17-59) U/L ALT 86 H (4-49) U/L Alkaline Phosphatase 169 H (38-126) U/L Total Protein 5.9 L (6.3-8.2) g/dL Albumin 2.6 L (3.5-5.0) g/dL Microbiology - Last 24 Hours (Table) 08/22/21 04:45 Gram Stain - Preliminary Trachea Wound Culture - Preliminary
[2021-08-23] MEDS: ATORVASTATIN 40 MG TAB PO SCH (16:15)
[2021-08-23] MEDS: SODIUM CHLORIDE 0.9% 500 ML 500 ML IV SCH (19:07)
[2021-08-23 19:11] LABS: Glucose,Whole Blood 155 mg/dL (75-99)
[2021-08-23 21:14] LABS: Glucose,Whole Blood 190 mg/dL (75-99)
[2021-08-24 00:04] LABS: Glucose,Whole Blood 191 mg/dL (75-99)
[2021-08-24] MEDS: INSULIN ASPART (NovoLOG) 100 UNIT/ML VIAL SQ SCH ×3 (00:35→11:29)
[2021-08-24] MEDS: ARTIFICIAL TEARS-HYPROMELLOSE DROPS 15 ML BTL BOTH EYES SCH ×4 (00:35→11:31)
[2021-08-24 05:36] LABS: ABG Base Excess 17.6 mmol/L; ABG Oxygen Saturation 93.8 % (94-97); ABG PCO2 58 mmHg (35-45); ABG PH 7.46 (7.35-7.45); ABG PO2 68 mmHg (83-108); ABG TCO2 43 mmol/L (19-24); Allen Test Performed? Yes
[2021-08-24 05:52] LABS: Basophils % (A) 0 %; Eosinophils # (A) 0.1 k/uL (0-0.7); Eosinophils % (A) 1 %; HCT 32.2 % (39.0-53.0); HGB 9.8 gm/dL (13.0-17.5); Hypochromasia Moderate; Lymphocytes # (A) 1.3 k/uL (1.0-4.8); Lymphocytes % (A) 10 %; MCH 31.7 pg (25.0-35.0); MCHC 30.4 g/dL (31.0-37.0); MCV 104.2 fL (80.0-100.0); Macrocytosis Slight; Mean Platelet Volume 7.9; Monocytes # (A) 0.5 k/uL (0-1.0); Monocytes % (A) 3 %; Neutrophils # (A) 11.6 k/uL (1.3-7.7); Neutrophils % (A) 86 %; Platelet Count 371 k/uL (150-450); Poikilocytosis Slight; RDW 14.4 % (11.5-15.5); WBC 13.5 k/uL (3.8-10.6)
[2021-08-24 05:55] LABS: ABG HCO3 41 mmol/L (21-25)
[2021-08-24 06:28] LABS: ALT 75 U/L (4-49); AST 56 U/L (17-59); African American GFR (CKD) >90 (>60 ml/min/1.73 sqM); Albumin 2.5 g/dL (3.5-5.0); Alkaline Phosphatase 143 U/L (38-126); Anion Gap 3 mmol/L; Blood Urea Nitrogen 27 mg/dL (9-20); Calcium 8.4 mg/dL (8.4-10.2); Chloride 100 mmol/L (98-107); Glucose 102 mg/dL (74-99); Non-African American GFR(CKD) >90 (>60 ml/min/1.73 sqM); Potassium 3.6 mmol/L (3.5-5.1); Sodium 143 mmol/L (137-145); Total Bilirubin 0.9 mg/dL (0.2-1.3); Total Protein 5.8 g/dL (6.3-8.2)
[2021-08-24 06:45] LABS: Carbon Dioxide 40 mmol/L (22-30)
[2021-08-24] MEDS: INSULIN DETEMIR (LEVEMIR) 100 UNIT/ML SYR SQ SCH (06:57)
[2021-08-24] MEDS: ASCORBIC ACID 500 MG TAB PO SCH (07:47)
[2021-08-24] MEDS: CHOLECALCIFEROL 25 MCG (1000 IU) TABLET PO SCH (07:47)
[2021-08-24] MEDS: FUROSEMIDE 10 MG/ML 4 ML VIAL IV SCH (07:47)
[2021-08-24] MEDS: ZINC SULFATE 220 MG CAP PO SCH (07:47)
[2021-08-24] MEDS: CHLORHEXIDINE GLUCONATE 15 ML CUP MUCOUS MEM SCH (07:47)
[2021-08-24] MEDS: DEXAMETHASONE SOD PHOSPHATE 10 MG/ML 1 ML VIAL IVP SCH (07:47)
[2021-08-24] MEDS: ASPIRIN 81 MG PO SCH (07:47)
[2021-08-24] MEDS: ENOXAPARIN 40 MG/0.4 ML SYRINGE SQ SCH (07:48)
[2021-08-24] MEDS: PANTOPRAZOLE 40 MG/10 ML VIAL IVP SCH (07:48)
[2021-08-24] MEDS: ALBUTEROL HFA INHALER INHALATION PRN ×2 (08:07→15:01)
[2021-08-24] MEDS: NOREPINEPHRINE 8 MG in SODIUM CHLORIDE 0.9% 250 ML IV SCH (08:19)
--- NOTE | 2021-08-24 10:32 | P.PN ---
Subjective Progress Note Date: 08/24/21 Principal diagnosis: Respiratory failure. Shortness of breath, hypoxia, COVID 19 This is 65-year-old male patient who has a history of hyperlipidemia, hypertension, anxiety, PTSD. He developed symptoms of increasing shortness of breath cough and congestion headache fever chills approximately 4 days ago. He tested positive for COVID-19 and received monoclonal antibodies by [facility]. He presented to the emergency room early this morning with worsening symptoms. The patient is not vaccinated. Chest x-ray shows bilateral patchy opacities consistent with COVID-19 pneumonia. White count 5.8. Hemoglobin 15.3. Lymphocytes 0.7. D-dimer 0.33. Sodium 134. Potassium 4.4. Creatinine 0.84. AST 56,. ALT 34. Troponins negative 3. ProBNP 54. He's been initia liza on Decadron, Lovenox, vitamin supplements. He is seen today in consultation on the regular medical floor. He is already on by mouth liters high flow nasal cannula plus a nonrebreather mask. He is afebrile. Hemodynamically stable. Dyspneic with minimal conversation. Dyspneic with minimal exertion. On 07/29/2021 patient seen in follow-up on medical surgical floor, he is currently on 15 L per high flow nasal cannula his pulse ox is 87-91%, he is afebrile, hemodynamically stable, patient has been repositioning self and then, on his left side right side, and he states he did try some prone positioning briefly.He was started on Baricitinib yesterday and he is on Decadron 6 mg daily in addition to prophylactic Lovenox. Today's labs have been reviewed, his white blood cell count is 10.7, hemoglobin is 14.4, he is actually excellent renal profile are within normal limits, he is d-dimer on admission was negative at 0.33. LDH and CRP levels are still pending, pro-calcitonin level was negative at 0.07. On 07/30/2021 patient is seen in follow-up on medical surgical floor, he remains on high flow oxygen with 15 L high flow nasal cannula and 100% nonrebreather mask, and his pulse ox of 92-94%, and in a patient was confused, and agitated at times, he was removing his oxygen desaturating, highway safety engineer is outside the door, doing supervision. Patient is breathing fairly comfortably, he feels like his breathing is a little easier today, has occasional cough, at times she is able to bring up some yellow and green colored phlegm, no fever or chills, he was started on Baricitinib on 07/28/2021, he is also on Decadron 6 mg daily, and Lovenox 40 mg daily. Remains on IV fluids with 0.9 normal saline at a rate of 75 ML per hour, he is on COVID-19 vitamins. Labs reviewed, white blood cell count is 12.9, hemoglobin is 14.6, platelet count is 369, his d-dimer slightly increased and is currently at 0.60, electrolytes and renal profile are within normal limits. His LDH today is increased and is up to 1634, patient had 4 sets of negative troponin at less than 0.012, proBNP was 107, pro-calcitonin level was negative at 0.07 On 08/01/2021 patient seen in follow-up on medical surgical floor. Patient is currently on 15 L and 100% nonrebreather mask, he had a rapid response team call early this morning for a concern of intermittent pleuritic chest discomfort, and pain in bilateral lower extremities. In addition patient was noted to be intermittently removing his oxygen and desaturating. Currently he is awake, he is laying in bed, however he is crying, he is complaining of pain, however he is not able to say where the pain is. O2 saturation is 91%. His been afebrile, hemodynamically stable, lower extremity Dopplers were negative for DVT. Patient is currently on Baricitinib, he is on Lovenox 40 mg daily, and Decadron. He is receiving IV fluids at a rate of 75 ML per hour. He is d-dimer is 0.76, white count is 13.3, hemoglobin is 13.7, electrolyte and renal profile are within normal limits, he is LDH has improved since admission, and is down to 572, his troponins were negative 3, and CRP is improving and is down to 2.2. On 08/02/2021 patient seen in follow-up in the intensive care unit, this morning she was emergently transferred to the ICU for worsening hypoxia, he was emergently intubated and placed on mechanical ventilator, currently sedated, on assist-control mode of ventilation with a rate of 36, tidal volume is 450, FiO2 100% and PEEP of 10. Patient is quite dyssyncronous with the ventilator, Nimbex has been ordered, awaiting starting the paralytic. This pulse ox is only 82%, and the PEEP has been increased to 14, awaiting follow-up blood gas. He is in sinus mechanism tachycardic with a rate of 116. He is currently on 0.9 with seen at the rate of 75 ML per hour, Diprivan is 50 mics per kilo per minute. Patient was given Nimbex 10 mg IV push, he is better synchronize, his peak air pressures 34, plateau is 31. His chest x-ray from this morning shows ET tube slightly low, just above the giovani, and we will pull back the ET tube 2 or 3 cm. There are bilateral multifocal increased opacities with worsening findings and the right upper lung. CT angiogram of the chest from yesterday showed no acute pulmonary embolism within the limitation of the study. Today's labs are still pending. Patient continues on Baricitinib, Lovenox 40 mg, Decadron. Pickett catheter has been placed, patient is producing urine, he required a brief norepinephrine support. We'll place his Lasix on hold, will discontinue oral medications. On 08/03/2021 patient is seen in follow-up in the intensive care unit, he is currently intubated, sedated and paralyzed and proned. Vent settings this morning are assist-control with a rate of 36, tidal volume is 450, FiO2 of 90% and PEEP of 10. However his pulse ox is only 86-80%, this morning's blood gas shows pO2 of 64, pCO2 41, and pH of 7.36. His peak pressure is 32, plateau is 34. Patient is currently on 0.9 normal saline at 75 ML per hour, fentanyl is a 0.5 mics per kilo per minute, norepinephrine drip is a 0.03 mics per minute, Nimbex is a 2 mics per minute per minute, Diprivan is a 50 mics per kilo per minute. He was started on tube feedings with vital HP at a rate of 30 with a goal of 34. Chest x-ray today is still pending, patient's chest x-ray will be taken when he is turned on his back at 10:00 this morning. Today's labs show uptrending white count at 17.3, hemoglobin is 13, his INR is 1.1, his d-dimer is 9.45, sodium is 136, potassium is 4.1, CO2 is 20, BUN 17 creatinine 0.67, his troponin increased to 0.3-0, cardiology has been consulted, his proBNP was 2100, cortisol level was 19, TSH was 0.031, but free T4 was 1.17, within normal limits. Pro-calcitonin level came back at 1.31 suggesting presence of bacterial infection and patient is on sitting up which we will discontinue this morning. Urinalysis has been sent shows no evidence of infection, patient will be pancultured. And placed on cefepime. His recent CT angiogram of the chest showed no acute PE, post recent lower extremity Dopplers from 07/30/2021 showed no evidence of DVT. Patient did have fever elevation through the night, with a T-max of 106.8F, patient received antipyretics, this morning his temperature is 100.1F. Blood cultures will be sent lactic acid will be obtained. Progress note dated 08/04/2021. The patient remains in the intensive care unit, in seen in room 266. Currently, he's on the volume assist control mode, rate 36, tidal volume 450, FiO2 100%, and PEEP of 14. Blood gases show a PaO2 of 108, pCO2 of 50, and pH is 7.3. The patient's on Nimbex at 2 mcg/kg/m, fall at 50 mcg/kg/m, fentanyl at 1.5 mcg/kg/h, saline at 75 mL an hour and vital high protein at 30 mL an hour. That is goal. We will attempt to wean the FiO2. The PEEP was increased from 14 up to 18 cm water and we'll add hydrocortisone 50 mg every 6 hours. The patient's cortisol level was a bit low. White count 19.4, hemoglobin 12, hematocrit 37.1, platelet count 383,000. Sodium 139, potassium 4, chlorides 112, CO2 22, anion gap 5, BUN 16, creatinine 0.47. Albumin is 2.2. Chest x-ray shows diffuse bilateral infiltrates, and CT angiogram was negative for pulmonary embolism. Progress note dated 08/05/2021. 65-year-old male, again seen in the ICU, room 266. The patient is currently on the volume assist control mode of ventilation, rate 36, tidal volume 450, FiO2 90%, and PEEP of 18. Blood gases show a PaO2 of 83, pCO2 42, and a pH is 7.38. The patient remains on Nimbex at 2 mcg/kg/m, propofol at 50 mcg/kg/m, and fentanyl 1.5 mcg/kg/h. The patient's getting saline at 75 mL an hour, and vital high protein at 30 mL an hour, which is goal. The plans for the patient today or to wean the FiO2 down, to reduce his fluids to KVO, and to give the patient Lasix [address] angiogram was negative for pulmonary embolism. White count 16.9, hemoglobin 11.4, hematocrit 36, and normal platelet count. Sodium 141, potassium 4.3, chlorides 113, CO2 23, anion gap 5, BUN 21, and creatinine 0.5. Albumin is 2.1. Microbiologic studies are negative. Chest x-ray shows bilateral patchy infiltrates and pneumonia, somewhat improved compared to the prior chest x-ray. Progress note dated 08/20/2020. This is a 65-year-old male, who was initially admitted back on July 28. He was admitted with a diagnosis of coronavirus associated pneumonia. He came to the intensive care unit on August 02, and was intubated on the . The patient had a tracheostomy and PEG tube placement on 08/18/2021. The patient remains on the mechanical ventilator, with the pressure assist control modality. The patient's inspiratory pressure is 17 cm water, inspiratory time is 1 second, the rate of 28 breaths per minute, FiO2 is 75%, and the PEEP is 15. Arterial blood gases show pO2 of 62, pCO2 47, and pH is 7.48. The patient is currently on saline at 20 mL an hour, fentanyl at 2 mcg/kg/h, propofol at 50 mcg/kg/m, and index of 4.5 mcg/kg/m, and vital AF at 22 mL an hour. That is go al. White count of 7.8, hemoglobin 9.6, hematocrit 28.6, and platelet count is 301,000. Sodium 142, potassium 3.2, chlorides 103, CO2 35, anion gap 4, BUN 25, and creatinine 0.45. LDH is 923 with a C-reactive protein of 24.4. Microbiology, thus far is negative. Chest x-ray shows diffuse bilateral infiltrates, largely unchanged. The tip of the tracheostomy tube was noted to 2.2 cm above the giovani. Progress note dated 08/21/2020. 65-year-old male, who was initially admitted back on July 28. He was admitted with a diagnosis of coronavirus associated pneumonia. He came to the intensive care unit on August 02, and was intubated on the same day. The patient had a tracheostomy and PEG tube placement on 08/18/2021, for failure to wean from mechanical ventilation. The patient remains on the pressure assist control modality, with an inspiratory pressure of 17 cm water, and inspiratory time of 1 second. In addition the patient has a rate of 28, FiO2 75%, and PEEP of 15. Blood gases show pO2 of 57, pCO2 48, and a pH is 7.48. Saline is running at 20 mL an hour. Fentanyl is running at 1 mcg/kg/h, propofol at 50 mcg/kg/m. Nimbex is currently on hold. He is getting vital AF at 22 mL an hour, which is his goal. White count 9, hemoglobin 9.2, hematocrit 28.6, platelet count normal. Sodium 141, potassium 3.6, chlorides 102, CO2 34, anion gap 5, BUN 20, with creatinine of 0.39. Glucose is 127. Albumin 2.3. Chest x- ray shows diffuse bilateral infiltrates, which are unchanged. The tracheostomy tube is in good position. Progress note dated 08/22/2021. 65-year-old male, initially admitted back on July 28. He was admitted with a diagnosis of coronavirus associated pneumonia. He came to the intensive care unit August 02, and required intubation on the same day. The patient had a tracheostomy and PEG tube placed, first 2021, for failure to wean from mec hanical ventilation. The patient remains on the ventilator. The patient is on the pressure assist control mode, with an inspiratory pressure of 17 cm water, and inspiratory time of 1 second. The patient's respiratory rate is 28, with an FiO2 of 70%, and PEEP of 15. Blood gases show pO2 of 50, pCO2 49, pH is 7.5. Patient remains on saline at 20 mL an hour, fentanyl 1 mcg/kg/h, norepinephrine at 3 mcg/m, propofol at 75 mcg/kg/m, and Nimbex has been weaned off. Labs include a white count 10.1, hemoglobin 9, hematocrit 20 point and platelet count 305,000. Sodium 142, potassium 3.4, chlorides 100, CO2 35, anion gap 7, BUN 21, and creatinine 0.35. Microbiology is negative. Chest x-ray shows worsening bilateral infiltrates. Progress note dated 08/23/2021. 65-year-old male, initially admitted back on July 28. He was admitted with a diagnosis of coronavirus associated pneumonia. The patient came to the intensive care unit on August 02, and required intubation on the same day. The patient had a tracheostomy and PEG tube placed on 08/18/2021, for failure to wean. The patient remains on the mechanical ventilator. He is on the pressure assist control mode, rate is 28, FiO2 100%, PEEP of 20, with an inspiratory pressure of 17, and inspiratory time of 1 second. The blood gases show pO2 49, CO2 49, and pH is 7.52. The patient's getting propofol at 25 mcg/kg/m, and fentanyl at 2 mcg/kg/h. Patient's receiving vital high protein at 39 mL an hour, which is goal. We are going to increase the PEEP up to 24. I've asked her a.m. labs including a blood gas, and an a.m. chest x-ray. No chest x-ray was ordered on this patient. Progress note dated 08/24/2021. 65-year-old male, again seen in room 266. The patient has been in the hospital now for 27 days. He was admitted back on 07/28/2021. He was admitted with a diagnosis of coronavirus associated pneumonia. He came to the intensive care unit on August 02, and required intubation for respiratory failure on the same day. The patient had a tracheostomy and PEG tube placed on 08/18/2021, for failure to wean from mechanical ventilation. Patient remains on the ventilator, on the pressure assist control mode. Inspiratory pressure is 17 cm water. Inspiratory time is 1 second, the respiratory rate is 28, FiO2 100%, PEEP 24. Blood gases show pO2 of 68, pCO2 of 58, and pH is 7.40. The patient is on propofol at 25 mcg/kg/m, fentanyl at 2 mcg/kg/h, norepinephrine at 0.02 mcg/kg/m, saline at 20 mL an hour, and vital high protein at 49 mL an hour. That is goal. White count 13.5, hemoglobin 9.8, hematocrit 32.2, and platelet count 371,000. Sodium 143, potassium 3.6, chlorides 100, CO2 40, anion gap 3, BUN 27, creatinine 0.45. Objective - Vital Signs Vital signs: Vital Signs Temp 98.5 F 08/24/21 04:00 Pulse 95 08/24/21 07:00 Resp 17 08/24/21 07:00 BP 111/70 08/24/21 07:00 Pulse Ox 93 L 08/24/21 07:00 Intake & Output 08/23/21 08/24/21 08/24/21 18:59 06:59 18:59 Intake Total 1055.664 934.983 158.409 Output Total 885 2225 75 Balance 170.664 -1290.017 83.409 Intake: IV 136 36 3 Sodium Chloride 0.9% 1, 100 000 ml @ 20 mls/hr IV . Q24H [facility] Rx#:[id number] pressure bag 36 36 3 Intake, IV Titration 271.664 340.983 116.409 Amount Norepinephrine 8 mg In 0 12.53 116.409 Sodium Chloride 0.9% 250 ml @ 0.05 MCG/KG/MIN 10. 739 mls/hr IV .Q24H [facility] Rx#:[id number] fentaNYL (PF) 2,500 mcg 228.453 In Sodium Chloride 0.9% 200 ml @ 0.5 MCG/KG/HR 5. 2 mls/hr IV .Q24H [facility] Rx# :[id number] fentaNYL (PF). 1,000 mcg 94.293 In Sodium Chloride 0.9% 80 ml @ 0.5 MCG/KG/HR 5.2 mls/hr IV .[id number] [facility] Rx#:[id number] propofoL 1,000 mg In 177.371 100 Empty Bag 1 bag @ Titrate IV .Q0M [facility] Rx#: [id number] Tube Feeding 468 468 39 Other 180 90 Output: Urine 885 2225 75 Other: Voiding Method Indwelling Catheter Indwelling Catheter ABP, PAP, CO, CI - Last Documented Arterial Blood Pressure 156/71 - Exam No acute distress, sedated. The patient has a midline tracheostomy tube. HEENT examination is grossly unremarkable. Neck supple. Full range of motion. No adenopathy thyromegaly or neck vein distention. Cardiovascular examination reveals regular rhythm rate. S1-S2 normal. No S3 or S4. No discernible murmur noted. Heart sounds are distant. Heart rate 95 bpm. Lungs reveal diffuse bilateral rhonchi as well as bilateral crackles. Breath sounds equal bilaterally. There are no wheezes. Saturations are 93%. Abdomen soft bowel sounds are heard. No masses. A PEG tube is noted. Extremities are intact. No cyanosis clubbing or edema. Skin is without rash or lesion. Neurologic examination cannot be adequately assessed as the patient's currently sedated. - Labs CBC & Chem 7: 08/24/21 04:20 08/24/21 04:20 Labs: Abnormal Lab Results - Last 24 Hours (Table) 08/23/21 08/23/21 08/23/21 Range/Units 11:00 11:00 12:23 WBC 14.6 H (3.8-10.6) k/uL RBC 3.27 L (4.30-5.90) m/uL Hgb 10.6 L (13.0-17.5) gm/dL Hct 33.7 L (39.0-53.0) % MCV 103.1 H (80.0-100.0) fL MCHC (31.0-37.0) g/dL Neutrophils # 12.5 H (1.3-7.7) k/uL ABG pH (7.35-7.45) ABG pCO2 (35-45) mmHg ABG pO2 (83-108) mmHg ABG HCO3 (21-25) mmol/L ABG Total CO2 (19-24) mmol/L ABG O2 Saturation (94-97) % Potassium 3.4 L (3.5-5.1) mmol/L Carbon Dioxide 39 H (22-30) mmol/L BUN 23 H (9-20) mg/dL Creatinine 0.55 L (0.66-1.25) mg/dL Glucose 127 H (74-99) mg/dL POC Glucose (mg/dL) 120 H (75-99) mg/dL AST 79 H (17-59) U/L ALT 86 H (4-49) U/L Alkaline Phosphatase 169 H (38-126) U/L Total Protein 5.9 L (6.3-8.2) g/dL Albumin 2.6 L (3.5-5.0) g/dL 08/23/21 08/23/21 08/24/21 Range/Units 19:09 21:12 00:03 WBC (3.8-10.6) k/uL RBC (4.30-5.90) m/uL Hgb (13.0-17.5) gm/dL Hct (39.0-53.0) % MCV (80.0-100.0) fL MCHC (31.0-37.0) g/dL Neutrophils # (1.3-7.7) k/uL ABG pH (7.35-7.45) ABG pCO2 (35-45) mmHg ABG pO2 (83-108) mmHg ABG HCO3 (21-25) mmol/L ABG Total CO2 (19-24) mmol/L ABG O2 Saturation (94-97) % Potassium (3.5-5.1) mmol/L Carbon Dioxide (22-30) mmol/L BUN (9-20) mg/dL Creatinine (0.66-1.25) mg/dL Glucose (74-99) mg/dL POC Glucose (mg/dL) 155 H 190 H 191 H (75-99) mg/dL AST (17-59) U/L ALT (4-49) U/L Alkaline Phosphatase (38-126) U/L Total Protein (6.3-8.2) g/dL Albumin (3.5-5.0) g/dL 08/24/21 08/24/21 08/24/21 Range/Units 04:20 04:20 05:45 WBC 13.5 H (3.8-10.6) k/uL RBC 3.10 L (4.30-5.90) m/uL Hgb 9.8 L (13.0-17.5) gm/dL Hct 32.2 L (39.0-53.0) % MCV 104.2 H (80.0-100.0) fL MCHC 30.4 L (31.0-37.0) g/dL Neutrophils # 11.6 H (1.3-7.7) k/uL ABG pH 7.46 H (7.35-7.45) ABG pCO2 58 H (35-45) mmHg ABG pO2 68 L (83-108) mmHg ABG HCO3 41 H* (21-25) mmol/L ABG Total CO2 43 H (19-24) mmol/L ABG O2 Saturation 93.8 L (94-97) % Potassium (3.5-5.1) mmol/L Carbon Dioxide 40 H (22-30) mmol/L BUN 27 H (9-20) mg/dL Creatinine 0.45 L (0.66-1.25) mg/dL Glucose 102 H (74-99) mg/dL POC Glucose (mg/dL) (75-99) mg/dL AST (17-59) U/L ALT 75 H (4-49) U/L Alkaline Phosphatase 143 H (38-126) U/L Total Protein 5.8 L (6.3-8.2) g/dL Albumin 2.5 L (3.5-5.0) g/dL Microbiology - Last 24 Hours (Table) 08/22/21 04:45 Gram Stain - Final Trachea Wound Culture - Final Assessment and Plan Assessment: Acute hypoxemic respiratory failure secondary to coronavirus associated pneumonia, with initial admission on 07/28/2021. Acute respiratory distress syndrome. Status post intubation and mechanical ventilation for respiratory failure on 08/02/2021, and because of failure to wean from mechanical ventilation, tracheostomy and PEG tube placement on 08/18/2021. CT angiogram negative for pulmonary embolism. Elevated troponins, likely related to supply/demand mismatch. Chronic systolic CHF. History of hypertension. History of CAD. Hyperlipidemia. Chronic back pain. History of alcohol use. History of anxiety/PTSD. Plan: Plan dated 08/04/2021. The patient remains on the mechanical ventilator. We will increase the PEEP levels to 18, and try to wean the FiO2. Because his cortisol level is a bit low, we added hydrocortisone, 50 mg IV push, every 6 hours. The patient remains on cefepime empirically. The patient also is on Decadron and Lovenox. The patient is maintained on vitamin C, vitamin D3, and zinc. He remains on Nimbex, propofol, and fentanyl. He's getting tube feedings at goal. We will continue to follow make recommendations where appropriate. Prognosis is guarded. Plan dated 08/05/2021. The patient remains sedated and paralyzed. We will attempt to wean the Nimbex off. The patient will get Lasix 40 mg IV push today. In addition, we will attempt to wean the FiO2. Also, we'll cut back on the fluids. Additional recommendations and suggestions are forthcoming. The patient remains on Lovenox, and vitamins. We will add back Decadron and DC the hydrocortisone. Additional recommendations and suggestions are forthcoming. The patient remains on cefepime empirically. Prognosis is guarded. Plan dated 08/20/2021. The patient's labs, x-rays, and medications are reviewed. The patient's FiO2 on the ventilator is reduced from 80%, down to 75%. The patient remains on fentanyl, propofol, and Nimbex. The patient is receiving vital AF at 22 mL an hour. That is goal. The patient did undergo tracheostomy and PEG tube placement on 08/18/2021. The patient remains on Decadron and Lovenox. Additional recommendations and suggestions are forthcoming. Overall prognosis remains very guarded. No additional recommendations are made at this time. We will continue to follow and make recommendations where appropriate. Plan dated 08/21/2021. The patient's labs, x-rays, medications are all reviewed. No changes on the mechanical ventilator today. The patient remains on fentanyl and propofol, and currently, the Nimbex is on hold. The patient is receiving tube feeds. The patient underwent tracheostomy and PEG tube placement on 08/18/2021. The patient remains on Decadron and Lovenox. We will continue to follow the patient and make recommendations where appropriate. Prognosis is certainly very guarded. Plan dated 08/22/2021. The patient's labs, x-rays, and medications are reviewed. The patient has been weaned off the Nimbex. He remains on fentanyl, propofol, and a small amount of norepinephrine at 3 mcg/m. Arterial blood gases are reasonable. He remains on the pressure assist control mode. He is receiving tube feedings at goal. We will continue to follow make recommendations were appropriate. Remains on vitamins, Decadron, and Lovenox. Prognosis is guarded. Chest x-ray appears to be a bit worse. We will continue to follow this. Plan dated 08/23/2021. The patient's labs, x-rays and medications are all reviewed. The patient has been weaned off of Nimbex. We will increase the patient's PEEP to 24. We'll order a.m. labs, chest x-ray, and blood gases. The blood gas, from today is reviewed. The patient's overall prognosis remains poor. I did speak to the nurse, Radha about the patient. I told her to make sure the patient has labs, and x-rays reviewed. The patient remains on Decadron and Lovenox. We will continue to follow make recommendations and suggestions where appropriate. Prognosis is very guarded. Plan dated 08/24/2021. The patient's labs, x-rays, medications are reviewed. The patient has been weaned off of Nimbex. Unfortunately, patient's blood pressures low. He'll receive fluids and increasing doses of norepinephrine. The patient's u nfortunately on 100% FiO2, and PEEP of 24. Arterial blood gases are barely acceptable. I had conversations with the , and his daughter. Initially, the patient was a full code, that a no code, that a full code again, and a no code as per his Dr. Foley, and more recently, he is now back up full code again. In the future, I will make Dr. Foley have all conversations with his family as it relates to CODE STATUS. We will continue to follow make recommendations were appropriate. Prognosis is very poor. Time with Patient: Greater than 30
[2021-08-24] MEDS: CISATRACURIUM 200 MG in SODIUM CHLORIDE 0.9% 180 ML IV SCH (11:09)
[2021-08-24 11:27] LABS: Glucose,Whole Blood 175 mg/dL (75-99)
[2021-08-24] MEDS: SODIUM CHLORIDE 0.9% 500 ML 500 ML IV SCH (11:30)
--- NOTE | 2021-08-24 12:12 | P.PN ---
Subjective Progress Note Date: 08/24/21 This is a 65-year-old male well-known to me. He had been and getting sick last Friday. He was tested for COVID-19 and was positive. Unfortunately this patient is not vaccinated. He did receive monoclonal antibody infusion. On Friday he was initiated on Decadron and colchicine due to a obesity, history of smoking and chronic pain. He presented to the emergency room and [facility] and was found to 19 pneumonia on chest x-ray. KUB due to increased shortness of breath. He was found to have a pulse oximetry of 84 in the emergency room. He is currently on a 50% nonrebreather. His pulse oximeter is improved, but he does continue to short of breath this level. Initial laboratory studies were essentially normal. Diabetes 5 Hemoglobin 53. There Is No Significant Shift. 07/30/2021 maintained on 15 L high flow nasal cannula and nonrebreather mask, maintaining O2 sats of 90-94%. Continues on Covid cocktail,Baricitinib. Pro- calcitonin negative. Requiring sitter at bedside to facilitate patient leaving his oxygen on. Renal function within normal limits. Inflammatory markers incr eased. 07/31/2021 maintained on Covid cocktail, Baricitinib. continues on 15 L high flow nasal cannula/nonrebreather mask maintaining O2 sats in the 90s. Chest x- ray reporting interstitial and alveolar infiltrates with small effusions stable. Afebrile. Requiring director of safety to remind patient from refraining to pull off his mask. Dopplers reported negative for bilateral lower extremities DVT. 08/01/2021 respiratory status unchanged. The patient alert and oriented 3,requires sitter at bedside to remind him to leave his mask on. Afebrile. Maintained on Covid cocktail. 08/02/2021 respiratory status worsened, unable to tolerate BiPAP and transferred to the ICU, requiring emergent intubation. Maintained on 100% FiO2/+18 of PEEP. Chest x-ray reporting increased bilateral multifocal opacities-consistent with COVID-19 infection progression. CTA reported negative for acute PE.Continues on Nimbex, diprovan, fentanyl. On and off Levophed. Currently on third liter of IV fluids. Mild tachycardia, borderline hypotension. Temperature 102.6, WBC 13.34, hemoglobin 13.7, platelets 455. D-dimer 0.76, ferritin 656, LDH 572 CRP 2.20. ABGs pending. 08/03/2021 FiO2 90/+10 of PEEP. Maintained on diprovan, on Nimbex, fentanyl, norepinephrine. Prone positioned. Currently maintaining O2 sats in the high 80s. T-max 106.8 currently 100.1. WBC trending up, 17.3. Pro-calcitonin elevated, 1.31. Pancultured/Lactic acid pending. Baricitinib discontinued with Cefepime initiated .Inflammatory markers increased with significant elevation of d-dimer, 9.45. Cardiology consult in place, Troponin increased 0.320. 08/20/21 FiO2 75%/+15 of PEEP. Maintained on fentanyl, diprovan and nimbex drips. T-max 99.9, WBC within normal limits. Potassium 3.2, receiving supplements. Inflammatory markers mildly elevated with the exception of LDH. Chest x-ray reporting COPD with stable diffuse interstitial changes, patchy, confluent groundglass Covid infiltrates. Tracheostomy cannula tip 2.2 cm from the giovani-adjustment as per icu staff nurse. Hemoglobin 9.6. Foul-smelling , thick epi,burgandy oral secretions occurring over the last couple days, right neck area discoloration-possible mass/abscess-CT ordered. Blood sugars currently controlled but increasing.Tolerating tube feeds with minimal to no residuals, gold currently being advanced by dietitian. 08/21/2021 ABGs reported pO2 of 57, pCO2 48, pH 7.48, FiO2 increased to 100%, PEEP remains at 15. Maintained on diprovan, fentanyl, and Nimbex and Levophed. Tolerating tube feeds at goal, with minimal to no residuals. Chest x-ray reporting no significant change from prior. Renal function stable. T-max 99.7, normal WBC. 08/22/2021 FiO2 70%/+15 of PEEP. Chest x-ray worsening. Continues on diprovan, fentanyl. Levophed and Nimbex weaned off. Tracheostomy site drainage cultured. Head and neck ultrasound reported right lateral neck with superficial mild subcutaneous edema without well-formed fluid collection or drainable abscess. T-max 99.8, WBC 10.1. Blood sugars controlled. 08/23/2021 During the night patient desatted, became hypotensive with trach cuff leaks. ABGs reporting pH 7.52, pO2 49, pCO2 49 .FiO2 increased to 100%/PEEP increased to +24. Continues on diprovan and fentanyl. Maintained on tube feeds at goal. Receiving CPT .Cuff leaks continue. Objective - Vital Signs Vital signs: Vital Signs Temp 98.4 F 08/23/21 08:00 Pulse 100 08/23/21 11:00 Resp 35 H 08/23/21 11:00 BP 102/77 08/23/21 11:00 Pulse Ox 91 L 08/23/21 11:00 Intake & Output 08/22/21 08/23/21 08/23/21 18:59 06:59 18:59 Intake Total 316.804 6548.645 601.664 Output Total 1910 4165 260 Balance -1030.837 -3163.355 341.664 Weight 114.2 kg 111.8 kg Intake: IV 253 276 115 Sodium Chloride 0.9% 1, 220 240 100 000 ml @ 20 mls/hr IV . Q24H [facility] Rx#:[id number] pressure bag 33 36 15 Intake, IV Titration 367.163 197.645 171.664 Amount Norepinephrine 8 mg In 48.510 Sodium Chloride 0.9% 250 ml @ 0.05 MCG/KG/MIN 10. 739 mls/hr IV .Q24H [facility] Rx#:[id number] fentaNYL (PF). 1,000 mcg 142.653 131.980 94.293 In Sodium Chloride 0.9% 80 ml @ 0.5 MCG/KG/HR 5.2 mls/hr IV .[id number] [facility] Rx#:[id number] propofoL 1,000 mg In 176.000 65.665 77.371 Empty Bag 1 bag @ Titrate IV .Q0M [facility] Rx#: [id number] Tube Feeding 259 468 195 Other 60 120 Output: Urine 1910 4165 260 Other: Voiding Method Indwelling Catheter Indwelling Catheter ABP, PAP, CO, CI - Last Documented Arterial Blood Pressure 103/66 - Exam GENERAL: intubated ,sedated HEAD: Atraumatic, normocephalic. HEART: Telemetry sinus rhythm-sinus tachycardia LUNGS: Diffuse scattered rhonchi, bibasilar crackles EXTREMITIES: Normal range of motion, no edema NEUROLOGICAL: Unable to assess, patient on mechanical ventilator, sedated - Labs CBC & Chem 7: 08/24/21 04:20 08/24/21 04:20 Labs: Abnormal Lab Results - Last 24 Hours (Table) 08/22/21 08/22/21 08/22/21 Range/Units 17:10 17:47 20:36 WBC (3.8-10.6) k/uL RBC (4.30-5.90) m/uL Hgb (13.0-17.5) gm/dL Hct (39.0-53.0) % MCV (80.0-100.0) fL Neutrophils # (1.3-7.7) k/uL ABG pH 7.55 H (7.35-7.45) ABG pCO2 47 H (35-45) mmHg ABG pO2 50 L* (83-108) mmHg ABG HCO3 41 H* (21-25) mmol/L ABG Total CO2 42 H (19-24) mmol/L ABG O2 Saturation 87.2 L (94-97) % Potassium (3.5-5.1) mmol/L Carbon Dioxide (22-30) mmol/L BUN (9-20) mg/dL Creatinine (0.66-1.25) mg/dL Glucose (74-99) mg/dL POC Glucose (mg/dL) 118 H 115 H (75-99) mg/dL AST (17-59) U/L ALT (4-49) U/L Alkaline Phosphatase (38-126) U/L Total Protein (6.3-8.2) g/dL Albumin (3.5-5.0) g/dL 08/23/21 08/23/21 08/23/21 Range/Units 00:22 05:40 06:42 WBC (3.8-10.6) k/uL RBC (4.30-5.90) m/uL Hgb (13.0-17.5) gm/dL Hct (39.0-53.0) % MCV (80.0-100.0) fL Neutrophils # (1.3-7.7) k/uL ABG pH 7.52 H (7.35-7.45) ABG pCO2 49 H (35-45) mmHg ABG pO2 49 L* (83-108) mmHg ABG HCO3 40 H* (21-25) mmol/L ABG Total CO2 41 H (19-24) mmol/L ABG O2 Saturation 84.9 L (94-97) % Potassium (3.5-5.1) mmol/L Carbon Dioxide (22-30) mmol/L BUN (9-20) mg/dL Creatinine (0.66-1.25) mg/dL Glucose (74-99) mg/dL POC Glucose (mg/dL) 100 H 116 H (75-99) mg/dL AST (17-59) U/L ALT (4-49) U/L Alkaline Phosphatase (38-126) U/L Total Protein (6.3-8.2) g/dL Albumin (3.5-5.0) g/dL 08/23/21 08/23/21 08/23/21 Range/Units 11:00 11:00 12:23 WBC 14.6 H (3.8-10.6) k/uL RBC 3.27 L (4.30-5.90) m/uL Hgb 10.6 L (13.0-17.5) gm/dL Hct 33.7 L (39.0-53.0) % MCV 103.1 H (80.0-100.0) fL Neutrophils # 12.5 H (1.3-7.7) k/uL ABG pH (7.35-7.45) ABG pCO2 (35-45) mmHg ABG pO2 (83-108) mmHg ABG HCO3 (21-25) mmol/L ABG Total CO2 (19-24) mmol/L ABG O2 Saturation (94-97) % Potassium 3.4 L (3.5-5.1) mmol/L Carbon Dioxide 39 H (22-30) mmol/L BUN 23 H (9-20) mg/dL Creatinine 0.55 L (0.66-1.25) mg/dL Glucose 127 H (74-99) mg/dL POC Glucose (mg/dL) 120 H (75-99) mg/dL AST 79 H (17-59) U/L ALT 86 H (4-49) U/L Alkaline Phosphatase 169 H (38-126) U/L Total Protein 5.9 L (6.3-8.2) g/dL Albumin 2.6 L (3.5-5.0) g/dL Microbiology - Last 24 Hours (Table) 08/22/21 04:45 Gram Stain - Final Trachea Wound Culture - Final Assessment and Plan Assessment: Acute COVID-19 pneumonia, status post monoclonal antibody infusion, un- vaccinated. Sepsis secondary to the above and suspected underlying bacterial infection, elevated pro calcitonin, pancultured Acute hypoxic respiratory failure, mechanical ventilator-dependent with possible ARDS Status post tracheostomy and PEG tube placement Troponin, elevated, possibly related to the above ,cardiology following Hypernatremia secondary to diuresing, resolved Former nicotine dependence Daily alcohol consumption Essential hypertension Long-term use of opiate analgesic CAD Chronic congestive heart failure, systolic dysfunction, EF 40-45% Plan: Continue current medication regime ,monitoring and symptomatic treatment. Covid cocktail. ICU management as per icu staff nurse. PCP will call, update and address CODE STATUS. Prognosis guarded given multiple complex medical issues. The impression and plan of care has been dictated as directed. : I performed a history and examination of this patient, discussed the same with the dictator. I agree with the dictator's note ,documented as a scribe. Any additional findings or plans will be noted.
--- NOTE | 2021-08-24 12:24 | P.PN ---
Subjective Progress Note Date: 08/24/21 This is a 65-year-old male well-known to me. He had been and getting sick last Friday. He was tested for COVID-19 and was positive. Unfortunately this patient is not vaccinated. He did receive monoclonal antibody infusion. On Friday he was initiated on Decadron and colchicine due to a obesity, history of smoking and chronic pain. He presented to the emergency room and [facility] and was found to 19 pneumonia on chest x-ray. KUB due to increased shortness of breath. He was found to have a pulse oximetry of 84 in the emergency room. He is currently on a 50% nonrebreather. His pulse oximeter is improved, but he does continue to short of breath this level. Initial laboratory studies were essentially normal. Diabetes 5 Hemoglobin 53. There Is No Significant Shift. 07/30/2021 maintained on 15 L high flow nasal cannula and nonrebreather mask, maintaining O2 sats of 90-94%. Continues on Covid cocktail,Baricitinib. Pro- calcitonin negative. Requiring sitter at bedside to facilitate patient leaving his oxygen on. Renal function within normal limits. Inflammatory markers incr eased. 07/31/2021 maintained on Covid cocktail, Baricitinib. continues on 15 L high flow nasal cannula/nonrebreather mask maintaining O2 sats in the 90s. Chest x- ray reporting interstitial and alveolar infiltrates with small effusions stable. Afebrile. Requiring occupational health and safety adviser to remind patient from refraining to pull off his mask. Dopplers reported negative for bilateral lower extremities DVT. 08/01/2021 respiratory status unchanged. The patient alert and oriented 3,requires sitter at bedside to remind him to leave his mask on. Afebrile. Maintained on Covid cocktail. 08/02/2021 respiratory status worsened, unable to tolerate BiPAP and transferred to the ICU, requiring emergent intubation. Maintained on 100% FiO2/+18 of PEEP. Chest x-ray reporting increased bilateral multifocal opacities-consistent with COVID-19 infection progression. CTA reported negative for acute PE.Continues on Nimbex, diprovan, fentanyl. On and off Levophed. Currently on third liter of IV fluids. Mild tachycardia, borderline hypotension. Temperature 102.6, WBC 13.34, hemoglobin 13.7, platelets 455. D-dimer 0.76, ferritin 656, LDH 572 CRP 2.20. ABGs pending. 08/03/2021 FiO2 90/+10 of PEEP. Maintained on diprovan, on Nimbex, fentanyl, norepinephrine. Prone positioned. Currently maintaining O2 sats in the high 80s. T-max 106.8 currently 100.1. WBC trending up, 17.3. Pro-calcitonin elevated, 1.31. Pancultured/Lactic acid pending. Baricitinib discontinued with Cefepime initiated .Inflammatory markers increased with significant elevation of d-dimer, 9.45. Cardiology consult in place, Troponin increased 0.320. 08/20/21 FiO2 75%/+15 of PEEP. Maintained on fentanyl, diprovan and nimbex drips. T-max 99.9, WBC within normal limits. Potassium 3.2, receiving supplements. Inflammatory markers mildly elevated with the exception of LDH. Chest x-ray reporting COPD with stable diffuse interstitial changes, patchy, confluent groundglass Covid infiltrates. Tracheostomy cannula tip 2.2 cm from the giovani-adjustment as per sedimentationist. Hemoglobin 9.6. Foul-smelling , thick epi,burgandy oral secretions occurring over the last couple days, right neck area discoloration-possible mass/abscess-CT ordered. Blood sugars currently controlled but increasing.Tolerating tube feeds with minimal to no residuals, gold currently being advanced by dietitian. 08/21/2021 ABGs reported pO2 of 57, pCO2 48, pH 7.48, FiO2 increased to 100%, PEEP remains at 15. Maintained on diprovan, fentanyl, and Nimbex and Levophed. Tolerating tube feeds at goal, with minimal to no residuals. Chest x-ray reporting no significant change from prior. Renal function stable. T-max 99.7, normal WBC. 08/22/2021 FiO2 70%/+15 of PEEP. Chest x-ray worsening. Continues on diprovan, fentanyl. Levophed and Nimbex weaned off. Tracheostomy site drainage cultured. Head and neck ultrasound reported right lateral neck with superficial mild subcutaneous edema without well-formed fluid collection or drainable abscess. T-max 99.8, WBC 10.1. Blood sugars controlled. 08/23/2021 During the night patient desatted, became hypotensive with trach cuff leaks. ABGs reporting pH 7.52, pO2 49, pCO2 49 .FiO2 increased to 100%/PEEP increased to +24. Continues on diprovan and fentanyl. Maintained on tube feeds at goal. Receiving CPT .Cuff leaks continue. 08/24/2020 FiO2 100%/PEEP +24. ABGs reporting pH 7.46 pCO2 58, pO2 68 bicarb 41. Maintained on diprovan, fentanyl, Levophed. Objective - Vital Signs Vital signs: Vital Signs Temp 98.4 F 08/24/21 08:00 Pulse 101 H 08/24/21 11:00 Resp 28 H 08/24/21 11:00 BP 136/76 08/24/21 11:00 Pulse Ox 91 L 08/24/21 11:00 Intake & Output 08/23/21 08/24/21 08/24/21 18:59 06:59 18:59 Intake Total 1055.664 934.983 250.409 Output Total 885 2225 800 Balance 170.664 -1290.017 -549.591 Intake: IV 136 36 95 Sodium Chloride 0.9% 1, 100 80 000 ml @ 20 mls/hr IV . Q24H [facility] Rx#:[id number] pressure bag 36 36 15 Intake, IV Titration 271.664 340.983 116.409 Amount Norepinephrine 8 mg In 0 12.53 116.409 Sodium Chloride 0.9% 250 ml @ 0.05 MCG/KG/MIN 10. 739 mls/hr IV .Q24H [facility] Rx#:[id number] fentaNYL (PF) 2,500 mcg 228.453 In Sodium Chloride 0.9% 200 ml @ 0.5 MCG/KG/HR 5. 2 mls/hr IV .Q24H [facility] Rx# :[id number] fentaNYL (PF). 1,000 mcg 94.293 In Sodium Chloride 0.9% 80 ml @ 0.5 MCG/KG/HR 5.2 mls/hr IV .[id number] [facility] Rx#:[id number] propofoL 1,000 mg In 177.371 100 Empty Bag 1 bag @ Titrate IV .Q0M [facility] Rx#: [id number] Tube Feeding 468 468 39 Other 180 90 Output: Urine 885 2225 800 Other: Voiding Method Indwelling Catheter Indwelling Catheter Indwelling Catheter ABP, PAP, CO, CI - Last Documented Arterial Blood Pressure 99/52 - Exam GENERAL: intubated ,sedated HEAD: Atraumatic, normocephalic. HEART: Telemetry sinus rhythm-sinus tachycardia LUNGS: Diffuse scattered rhonchi, bibasilar crackles EXTREMITIES: Normal range of motion, no edema NEUROLOGICAL: Unable to assess, patient on mechanical ventilator, sedated Microbiology 08/22/21 04:45 Trachea Gram Stain - Final 08/22/21 04:45 Trachea Wound Culture - Final 08/08/21 15:14 Blood Blood Culture - Final No Growth after 144 hours 08/08/21 11:00 Blood Blood Culture - Final No Growth after 144 hours 08/03/21 16:43 Blood Blood Culture - Final No Growth after 144 hours 08/03/21 09:40 Blood Blood Culture - Final No Growth after 144 hours 08/07/21 14:45 Sputum Gram Stain - Final 08/07/21 14:45 Sputum Sputum Culture - Final Haylee albicans - Labs CBC & Chem 7: 08/24/21 04:20 08/24/21 04:20 Labs: Abnormal Lab Results - Last 24 Hours (Table) 08/23/21 08/23/21 08/23/21 Range/Units 12:23 19:09 21:12 WBC (3.8-10.6) k/uL RBC (4.30-5.90) m/uL Hgb (13.0-17.5) gm/dL Hct (39.0-53.0) % MCV (80.0-100.0) fL MCHC (31.0-37.0) g/dL Neutrophils # (1.3-7.7) k/uL ABG pH (7.35-7.45) ABG pCO2 (35-45) mmHg ABG pO2 (83-108) mmHg ABG HCO3 (21-25) mmol/L ABG Total CO2 (19-24) mmol/L ABG O2 Saturation (94-97) % Carbon Dioxide (22-30) mmol/L BUN (9-20) mg/dL Creatinine (0.66-1.25) mg/dL Glucose (74-99) mg/dL POC Glucose (mg/dL) 120 H 155 H 190 H (75-99) mg/dL ALT (4-49) U/L Alkaline Phosphatase (38-126) U/L Total Protein (6.3-8.2) g/dL Albumin (3.5-5.0) g/dL 08/24/21 08/24/21 08/24/21 Range/Units 00:03 04:20 04:20 WBC 13.5 H (3.8-10.6) k/uL RBC 3.10 L (4.30-5.90) m/uL Hgb 9.8 L (13.0-17.5) gm/dL Hct 32.2 L (39.0-53.0) % MCV 104.2 H (80.0-100.0) fL MCHC 30.4 L (31.0-37.0) g/dL Neutrophils # 11.6 H (1.3-7.7) k/uL ABG pH (7.35-7.45) ABG pCO2 (35-45) mmHg ABG pO2 (83-108) mmHg ABG HCO3 (21-25) mmol/L ABG Total CO2 (19-24) mmol/L ABG O2 Saturation (94-97) % Carbon Dioxide 40 H (22-30) mmol/L BUN 27 H (9-20) mg/dL Creatinine 0.45 L (0.66-1.25) mg/dL Glucose 102 H (74-99) mg/dL POC Glucose (mg/dL) 191 H (75-99) mg/dL ALT 75 H (4-49) U/L Alkaline Phosphatase 143 H (38-126) U/L Total Protein 5.8 L (6.3-8.2) g/dL Albumin 2.5 L (3.5-5.0) g/dL 08/24/21 08/24/21 Range/Units 05:45 11:25 WBC (3.8-10.6) k/uL RBC (4.30-5.90) m/uL Hgb (13.0-17.5) gm/dL Hct (39.0-53.0) % MCV (80.0-100.0) fL MCHC (31.0-37.0) g/dL Neutrophils # (1.3-7.7) k/uL ABG pH 7.46 H (7.35-7.45) ABG pCO2 58 H (35-45) mmHg ABG pO2 68 L (83-108) mmHg ABG HCO3 41 H* (21-25) mmol/L ABG Total CO2 43 H (19-24) mmol/L ABG O2 Saturation 93.8 L (94-97) % Carbon Dioxide (22-30) mmol/L BUN (9-20) mg/dL Creatinine (0.66-1.25) mg/dL Glucose (74-99) mg/dL POC Glucose (mg/dL) 175 H (75-99) mg/dL ALT (4-49) U/L Alkaline Phosphatase (38-126) U/L Total Protein (6.3-8.2) g/dL Albumin (3.5-5.0) g/dL Microbiology - Last 24 Hours (Table) 08/22/21 04:45 Gram Stain - Final Trachea Wound Culture - Final Assessment and Plan Assessment: Acute COVID-19 pneumonia, status post monoclonal antibody infusion, un- vaccinated. Sepsis secondary to the above and suspected underlying bacterial infection, elevated pro calcitonin, pancultured Acute hypoxic respiratory failure, mechanical ventilator-dependent with possible ARDS Status post tracheostomy and PEG tube placement Troponin, elevated, possibly related to the above ,cardiology following Hypernatremia secondary to diuresing, resolved Former nicotine dependence Daily alcohol consumption Essential hypertension Long-term use of opiate analgesic CAD Chronic congestive heart failure, systolic dysfunction, EF 40-45% Plan: Continue current medication regime ,monitoring and symptomatic treatment. Covid cocktail. ICU management as per sedimentationist. CODE STATUS currently full code, PCP discussing with family. Prognosis guarded given multiple complex medical issues. The impression and plan of care has been dictated as directed. : I performed a history and examination of this patient, discussed the same with the dictator. I agree with the dictator's note ,documented as a scribe. Any additional findings or plans will be noted.
[2021-08-24] MEDS: fentaNYL (PF) 2,500 MCG in SODIUM CHLORIDE 0.9% 200 ML IV SCH (12:29)
[2021-08-24 12:41] VITALS: TEMP 98.3
[2021-08-24 13:43] VITALS: BMI 36.3
--- NOTE | 2021-08-24 13:54 | P.PN ---
Subjective Progress Note Date: 08/24/21 CHIEF COMPLAINT: Covid 19 pneumonia HISTORY OF PRESENT ILLNESS: Patient in the ICU and remains on mechanical ventilation. FiO2 100% and PEEP of 24. He remains on norepinephrine, propofol and fentanyl. Patient is status post tracheostomy and PEG tube placement on 08/18/2021. Patient is tolerating tube feedings. Afebrile. WBC 13.5 Patient seen and examined with Dr. jaime PHYSICAL EXAM: VITAL SIGNS: Reviewed. GENERAL: Well-developed in no acute distress. HEENT: Tracheostomy site with drainage ABDOMEN: Soft. Nondistended. Nontender. PEG tube site clean dry and intact ASSESSMENT: 1. Acute hypoxic respiratory failure secondary to COVID-19 pneumonia. Patient status post tracheostomy placement 2. Severe protein calorie malnutrition status post PEG tube placement PLAN: -Continue tube feedings -Continue ICU management -Continue supportive care Physician Etl Lead note has been reviewed by physician. Signing provider agrees with the documented findings, assessment, and plan of care. Objective - Vital Signs Vital signs: Vital Signs Temp 98.3 F 08/24/21 12:00 Pulse 106 H 08/24/21 12:00 Resp 28 H 08/24/21 12:00 BP 126/78 08/24/21 12:00 Pulse Ox 94 L 08/24/21 12:00 Intake & Output 08/23/21 08/24/21 08/24/21 18:59 06:59 18:59 Intake Total 1055.664 934.983 789.409 Output Total 885 2225 800 Balance 170.664 -1290.017 -10.591 Weight 111.8 kg Intake: IV 136 36 118 Sodium Chloride 0.9% 1, 100 100 000 ml @ 20 mls/hr IV . Q24H [facility] Rx#:[id number] pressure bag 36 36 18 Intake, IV Titration 271.664 340.983 366.409 Amount Norepinephrine 8 mg In 0 12.53 116.409 Sodium Chloride 0.9% 250 ml @ 0.05 MCG/KG/MIN 10. 739 mls/hr IV .Q24H [facility] Rx#:[id number] fentaNYL (PF) 2,500 mcg 228.453 250 In Sodium Chloride 0.9% 200 ml @ 0.5 MCG/KG/HR 5. 2 mls/hr IV .Q24H [facility] Rx# :[id number] fentaNYL (PF). 1,000 mcg 94.293 In Sodium Chloride 0.9% 80 ml @ 0.5 MCG/KG/HR 5.2 mls/hr IV .[id number] [facility] Rx#:[id number] propofoL 1,000 mg In 177.371 100 Empty Bag 1 bag @ Titrate IV .Q0M [facility] Rx#: [id number] Tube Feeding 468 468 245 Other 180 90 60 Output: Urine 885 2225 800 Other: Voiding Method Indwelling Catheter Indwelling Catheter Indwelling Catheter ABP, PAP, CO, CI - Last Documented Arterial Blood Pressure 99/52 - Labs CBC & Chem 7: 08/24/21 04:20 08/24/21 04:20 Labs: Abnormal Lab Results - Last 24 Hours (Table) 08/23/21 08/23/21 08/24/21 Range/Units 19:09 21:12 00:03 WBC (3.8-10.6) k/uL RBC (4.30-5.90) m/uL Hgb (13.0-17.5) gm/dL Hct (39.0-53.0) % MCV (80.0-100.0) fL MCHC (31.0-37.0) g/dL Neutrophils # (1.3-7.7) k/uL ABG pH (7.35-7.45) ABG pCO2 (35-45) mmHg ABG pO2 (83-108) mmHg ABG HCO3 (21-25) mmol/L ABG Total CO2 (19-24) mmol/L ABG O2 Saturation (94-97) % Carbon Dioxide (22-30) mmol/L BUN (9-20) mg/dL Creatinine (0.66-1.25) mg/dL Glucose (74-99) mg/dL POC Glucose (mg/dL) 155 H 190 H 191 H (75-99) mg/dL ALT (4-49) U/L Alkaline Phosphatase (38-126) U/L Total Protein (6.3-8.2) g/dL Albumin (3.5-5.0) g/dL 08/24/21 08/24/21 08/24/21 Range/Units 04:20 04:20 05:45 WBC 13.5 H (3.8-10.6) k/uL RBC 3.10 L (4.30-5.90) m/uL Hgb 9.8 L (13.0-17.5) gm/dL Hct 32.2 L (39.0-53.0) % MCV 104.2 H (80.0-100.0) fL MCHC 30.4 L (31.0-37.0) g/dL Neutrophils # 11.6 H (1.3-7.7) k/uL ABG pH 7.46 H (7.35-7.45) ABG pCO2 58 H (35-45) mmHg ABG pO2 68 L (83-108) mmHg ABG HCO3 41 H* (21-25) mmol/L ABG Total CO2 43 H (19-24) mmol/L ABG O2 Saturation 93.8 L (94-97) % Carbon Dioxide 40 H (22-30) mmol/L BUN 27 H (9-20) mg/dL Creatinine 0.45 L (0.66-1.25) mg/dL Glucose 102 H (74-99) mg/dL POC Glucose (mg/dL) (75-99) mg/dL ALT 75 H (4-49) U/L Alkaline Phosphatase 143 H (38-126) U/L Total Protein 5.8 L (6.3-8.2) g/dL Albumin 2.5 L (3.5-5.0) g/dL 08/24/21 Range/Units 11:25 WBC (3.8-10.6) k/uL RBC (4.30-5.90) m/uL Hgb (13.0-17.5) gm/dL Hct (39.0-53.0) % MCV (80.0-100.0) fL MCHC (31.0-37.0) g/dL Neutrophils # (1.3-7.7) k/uL ABG pH (7.35-7.45) ABG pCO2 (35-45) mmHg ABG pO2 (83-108) mmHg ABG HCO3 (21-25) mmol/L ABG Total CO2 (19-24) mmol/L ABG O2 Saturation (94-97) % Carbon Dioxide (22-30) mmol/L BUN (9-20) mg/dL Creatinine (0.66-1.25) mg/dL Glucose (74-99) mg/dL POC Glucose (mg/dL) 175 H (75-99) mg/dL ALT (4-49) U/L Alkaline Phosphatase (38-126) U/L Total Protein (6.3-8.2) g/dL Albumin (3.5-5.0) g/dL Microbiology - Last 24 Hours (Table) 08/22/21 04:45 Gram Stain - Final Trachea Wound Culture - Final
[2021-08-24 14:05] VITALS: BP 87/70; PULSE 141
[2021-08-24] MEDS ORDERED: CALCIUM CHLORIDE 100 MG/ML 10 ML SYRINGE ONE (15:04)
[2021-08-24] MEDS ORDERED: EPINEPHrine 10 ML SYRINGE (0.1 MG/ML) ONE (15:04)
[2021-08-24] MEDS ORDERED: SODIUM BICARB 8.4% 50 ML SYR (1 MEQ/ML) ONE (15:04)
[2021-08-24] MEDS ORDERED: ATROPINE SULFATE 0.1 MG/ML 10ML SYRINGE ONE (15:04)
[2021-08-24 15:23] VITALS: RESP 29
--- NOTE | 2021-08-24 16:14 | P.EN ---
Anedr Lafleur Note Ander Lafleur called at 1504, pt was initially in an idioventricular rhythm with HR of 33, and was pulseless, received 1A atropine and CPR initiated. Code lasted for 13 minutes during which time, patient became asystolic on subsequent pulse checks despite 3 amps of epinephrine, 1A of bicarb. Code was stopped at 1517 and patient was pronounced. Son was at beside and ind icated he would inform remaining family.
== END 2021-08-24 15:17 | disposition expired | DRG 4 ==
LOC: EC 23:58 → 4SSUR 07-28 03:49 → 2SICU 08-02 06:35
PROVIDERS: ADMIT Family Medicine; ATTEND Family Medicine
PROC: 8E0ZXY6 Isolation (ICD-10-PCS; 2021-07-28)
PROC: XW0DXM6 Introduction of Baricitinib into Mouth and Pharynx, External Approach, New Technology Group 6 (ICD-10-PCS; 2021-07-28)
PROC: 02HV33Z Insertion of Infusion Device into Superior Vena Cava, Percutaneous Approach (ICD-10-PCS; 2021-08-02)
PROC: 03HY32Z Insertion of Monitoring Device into Upper Artery, Percutaneous Approach (ICD-10-PCS; 2021-08-02)
PROC: 04HY32Z Insertion of Monitoring Device into Lower Artery, Percutaneous Approach (ICD-10-PCS; 2021-08-02)
PROC: 4A133B1 Monitoring of Arterial Pressure, Peripheral, Percutaneous Approach (ICD-10-PCS; 2021-08-02)
PROC: 4A133J1 Monitoring of Arterial Pulse, Peripheral, Percutaneous Approach (ICD-10-PCS; 2021-08-02)
PROC: 3E033XZ Introduction of Vasopressor into Peripheral Vein, Percutaneous Approach (ICD-10-PCS; 2021-08-05)
PROC: 5A1955Z Respiratory Ventilation, Greater than 96 Consecutive Hours (ICD-10-PCS; 2021-08-07)
PROC: 0BH17EZ Insertion of Endotracheal Airway into Trachea, Via Natural or Artificial Opening (ICD-10-PCS; 2021-08-07)
PROC: 0DH63UZ Insertion of Feeding Device into Stomach, Percutaneous Approach (ICD-10-PCS; 2021-08-18)
PROC: 3E0G76Z Introduction of Nutritional Substance into Upper GI, Via Natural or Artificial Opening (ICD-10-PCS; 2021-08-18)
PROC: 0B113F4 Bypass Trachea to Cutaneous with Tracheostomy Device, Percutaneous Approach (ICD-10-PCS; principal; 2021-08-18 08:30)
PROC: 5A12012 Performance of Cardiac Output, Single, Manual (ICD-10-PCS; 2021-08-24)
DX: U07.1 COVID-19 (principal); A41.89 Other specified sepsis; E43 Unspecified severe protein-calorie malnutrition; J12.82 Pneumonia due to coronavirus disease 2019; J80 Acute respiratory distress syndrome; E87.0 Hyperosmolality and hypernatremia; I42.8 Other cardiomyopathies; I50.22 Chronic systolic (congestive) heart failure; J44.0 Chronic obstructive pulmonary disease with (acute) lower respiratory infection; Z99.11 Dependence on respirator [ventilator] status; E11.9 Type 2 diabetes mellitus without complications; E66.9 Obesity, unspecified; E78.5 Hyperlipidemia, unspecified; F10.11 Alcohol abuse, in remission; F17.200 Nicotine dependence, unspecified, uncomplicated; F43.10 Post-traumatic stress disorder, unspecified; G83.9 Paralytic syndrome, unspecified; G89.29 Other chronic pain; I11.0 Hypertensive heart disease with heart failure; I25.10 Atherosclerotic heart disease of native coronary artery without angina pectoris; T50.2X5A Adverse effect of carbonic-anhydrase inhibitors, benzothiadiazides and other diuretics, initial encounter; Z78.9 Other specified health status; Z79.01 Long term (current) use of anticoagulants; Z79.2 Long term (current) use of antibiotics; Z79.4 Long term (current) use of insulin; Z79.82 Long term (current) use of aspirin; Z79.891 Long term (current) use of opiate analgesic; Z79.899 Other long term (current) drug therapy; Z82.49 Family history of ischemic heart disease and other diseases of the circulatory system; M19.90 Unspecified osteoarthritis, unspecified site; I95.9 Hypotension, unspecified; M54.9 Dorsalgia, unspecified
CPT/HCPCS: 36415; 36573; 43246; 71045; 71046; 71275; 76536; 80048; 80053; 81003; 82533; 82728; 82805; 83605; 83615; 83735; 83880; 84132; 84145; 84439; 84443; 84484; 85025; 85027; 85379; 85384; 85610; 85730; 86140; 87040; 87070; 87205; 87502; 92950; 93005; 93306; 93970; 94002; 94003; 94640; 94660; 94760; 99285